=== PATIENT | male | born 1930 | race Caucasian/White ===

== ENCOUNTER 2017-05-24 10:08 | Inpatient (IN) | payer OTHER ==
[2017-05-24] VITALS (7 sets, daily range): BP systolic 156–164; BP diastolic 84–92; PULSE 56–65; TEMP 36.5; O2SAT 92–99; Ht 182.9 cm; Wt 126.6 kg
[~2017-05-24] VITALS: Ht 182.9 cm; Wt 126.6 kg
[~2017-05-24 10:08] MED LIST: ASPI81TA28 PO; CLOP1TAB15 PO; FINA5TAB4 PO; FLAX12003 PO; FLM4 PO; INSDGI SC; LICORICE PO; LNX125 PO; LSX40 PO; METO100T44 PO; NTRGSL/4 UT; OMEG10007 PO; OXGN; POTA1CAP2 PO; ZCR40 PO
[2017-05-24] MEDS ORDERED: ALBUT/IPRATROP 3MG/0.5MG NEB 3 ML VIAL INH STA (10:48)
--- NOTE | 2017-05-24 11:07 | DIAGNOSTIC IMAGING REPORT ---
CHEST ONE VIEW PORTABLE CLINICAL HISTORY: Sepsis COMPARISON STUDY: 12/20/2015 FINDINGS: The heart remains enlarged. There is diffuse elevation of the interstitium. This is slightly progressive when compared the prior study. This could reflect progressive interstitial lung disease or superimposed mild congestive failure. There is a subtle airspace opacity versus summation artifact in the right midlung zone laterally..[ IMPRESSION: 1. Progressive interstitial thickening, consistent with either progressive interstitial lung disease or superimposed mild congestive failure 2. Subtle airspace opacity within the right midlung zone laterally versus summation artifact. Radiographic follow-up is recommended. Electronically signed by: Roberto Yousif M.D. 05/24/2017 11:06 AM Dictated Date/Time: 05/24/2017 11:03 AM
[2017-05-24 11:28] LABS: BASO % 0.5 %; BASO ABS # 0.04 K/uL (0-0.2); COMPLETE YES; EOS % 2.5 %; HEMATOCRIT 33.4 % (42-52); IG% 0.5 %; LYMPH % 7.1 %; MEAN CELL VOLUME 95.4 fL (80-100); MEAN CORPUSCULAR HGB CONC 31.4 g/dl (32-36); MEAN PLATELET VOLUME 11.2 fL (7.4-10.4); MONO % 6.8 %; NEUT % 82.6 %; PLATELET COUNT 144 K/uL (130-400)
[2017-05-24 11:36] LABS: VEN BLD GAS O2 SATURATION < 60.0 %; VEN BLOOD GAS BASE EXCESS 3.8 mEq/L; VENOUS BLOOD GAS PCO2 68 mmHg (38.0-50.0); VENOUS BLOOD GAS PO2 36 mmHg
[2017-05-24 11:40] LABS: PARTIAL THROMBOPLASTIN RATIO 1.1; PROTHROMBIN TIME (PATIENT) 10.8 SECONDS (9.0-12.0)
[2017-05-24 11:46] LABS: BUN/CREATININE RATIO 13.4 (10-20); C-REACTIVE PROTEIN 0.8 mg/dl (0-0.29); CALCIUM 8.5 mg/dl (8.5-10.1); CREATININE 3.68 mg/dl (0.60-1.40); MAGNESIUM 2.2 mg/dl (1.8-2.4); POTASSIUM 4.1 mmol/L (3.5-5.1)
[2017-05-24 11:49] LABS: ALB/GLOB RATIO 0.8 (0.9-2); CKMB/CK RATIO 4.4 (0-3.0); PHOSPHORUS 4.3 mg/dl (2.5-4.9)
[2017-05-24 11:55] LABS: URINE APPEARANCE CLEAR (CLEAR); URINE BILIRUBIN NEG (NEG); URINE COLOR YELLOW; URINE EPITHELIAL CELL AUTO 0-5 /lpf (0-5); URINE NITRITE NEG (NEG); URINE PH 5.5 (4.5-7.5); URINE SPECIFIC GRAVITY 1.013 (1.000-1.030); UROBILINOGEN NEG (NEG)
[2017-05-24 12:10] LABS: MANUAL MICROSCOPIC REQUIRED? NO; REVIEW REQ? YES; ZZUR CULT IF INDIC CLEAN CATCH NO
[2017-05-24 12:11] LABS: URINE PATH CASTS 0-3 GRANULAR CASTS /lpf (0)
[2017-05-24] MEDS ORDERED: NITROGLYCERIN 0.4 MG SL PER TAB CHARGE SL PRN (13:15)
[2017-05-24] MEDS ORDERED: ONDANSETRON INJ 2 MG/ML 2 ML VIAL IV PRN (13:15)
[2017-05-24] MEDS ORDERED: FUROSEMIDE INJ 80 MG in SYRINGE 0 ML IV ONE (13:30)
[2017-05-24] MEDS ORDERED: ALBU18002 INH (14:15)
[2017-05-24] MEDS ORDERED: ADVIN25/60 INH (14:15)
[2017-05-24] MEDS ORDERED: NRN/300 PO (14:15)
[2017-05-24] MEDS ORDERED: GLUCAGON FOR INJ 1 MG VIAL SQ PRN (14:30)
[2017-05-24] MEDS ORDERED: GLUCOSE 10 TABS/TUBE PO PRN (14:30)
[2017-05-24] MEDS ORDERED: GLUCOSE 40% GEL 15 GM TUBE PO PRN (14:30)
[2017-05-24] MEDS ORDERED: DEXTROSE 50% 50 ML SYR IV PRN (14:30)
[2017-05-24 14:44] LABS: ALLEN TEST POS (POS); ARTERIAL BLOOD GAS BASE EXCESS 2.8 mEq/L (-9-1.8); ARTERIAL BLOOD GAS HCO3 30 mmol/L (19-24); ARTERIAL BLOOD GAS PO2 82 mm/Hg (80-95); ARTERIAL BLOOD GAS pH 7.31 (7.35-7.45); O2 ADMINISTRATION 4 L
[2017-05-24] MEDS ORDERED: FUROSEMIDE 40 MG/4 ML VIAL ONE (14:48)
--- NOTE | 2017-05-24 14:55 | EMERGENCY ROOM VISIT NOTE ---
History Report prepared by Jacquie: Annalise Arcos Under the Supervision of: Dr. Fredis Bo D.O. First contact with patient: 10:40 Chief Complaint: RESPIRATORY PROBLEMS Stated Complaint: CAN'T BREATHE, CAN'T WALK Nursing Triage Summary: patient c/o cough and SOB for past couple weeks. patient states PCP referred him to ER. patient sent in for SOB and creat level 3.5 pt wears 2LNC at home. History of Present Illness The patient is a 86 year old male who presents to the Emergency Room with complaints of worsening shortness of breath for the past couple of weeks. The patient has worsening symptoms with exertion. He is chronically on 2L of O2 and has not been increasing this. He reports a productive cough. The patient rates his overall pain as a 10/10 in severity. He denies any new or worsening swelling of his legs. He denies fevers, chills, chest pain, and hemoptysis. He does have a significant cardiac history. The patient was seen in his PCP's office today and was sent to the ED for further evaluation. Source of History: patient Onset: a couple of weeks ago Position: chest (respiratory) Symptom Intensity: 10/10 Quality: other (shortness of breath) Timing: worsening Modifying Factors (Worsening): exertion Associated Symptoms: + cough, No fevers, No chills, No chest pain Review of Systems See HPI for pertinent positives & negatives. A total of 10 systems reviewed and were otherwise negative. 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, chronic Surgical Problems: (1) H/O hernia repair (2) s/p laser vaporization of prostate 11/01/11 (3) Transurethral prostatectomy Family History Heart disease Social History Smoking Status: Former Smoker Drug Use: none Occupation Status: retired Current/Historical Medications Scheduled Aspirin (Aspirin Ec), 81 MG PO QAM Clopidogrel (Plavix), 75 MG PO QAM Digoxin (Digoxin), 0.125 MG PO 2XWK Finasteride (Proscar), 1 TAB PO HS Fish Oil ([place]-3), 1 CAP PO HS Fluticasone Prop/Salmeterol (Advair Diskus 250/50 60 Dose), 1 PUFF INH BID Furosemide (Furosemide), 80 MG PO BID Gabapentin (Neurontin), 1 CAP PO HS Home O2 Therapy (Oxygen), 2 LITERS NA CONTINOUS Insulin Glargine (Lantus), 50 UNITS SC BID Metoprolol Succ (Toprol Xl) (Toprol-Xl ), 100 MG PO BID Simvastatin (Simvastatin), 40 MG PO QPM Tamsulosin HCl (Tamsulosin HCl), 0.4 MG PO HS Scheduled PRN Albuterol Sulfate (Proair Respiclick), 2 PUFFS INH Q4H PRN for SOB/Wheezing Nitroglycerin (Nitrostat), 0.4 MG UT UD PRN for Chest Pain Allergies Coded Allergies: Iodine (Verified Allergy, Mild, HIVES, 05/24/17) Sulfa Antibiotics (Verified Allergy, Unknown, ENTERED SULFA- UNKNOWN, 05/24/17) Physical Exam Vital Signs Date Time Temp Pulse Resp B/P (MAP) Pulse Ox O2 Delivery O2 Flow Rate FiO2 05/24/17 13:08 59 22 96 05/24/17 13:01 174/92 05/24/17 12:38 63 25 93 05/24/17 12:31 169/92 05/24/17 12:26 67 24 181/80 93 Mask 4.0 05/24/17 12:25 181/80 05/24/17 12:08 63 22 91 05/24/17 12:01 178/104 05/24/17 11:38 64 24 93 05/24/17 11:32 180/94 05/24/17 11:31 93 Mask 4.0 05/24/17 11:08 60 30 94 05/24/17 11:01 143/92 05/24/17 10:49 58 05/24/17 10:47 135/89 05/24/17 10:37 83 Nasal Cannula 2.0 05/24/17 10:28 36.7 62 24 140/71 83 Nasal Cannula 2.0 Physical Exam GENERAL: Patient is awake, alert, somewhat anxious appearing but comfortable. EYES: The conjunctivae are clear. The pupils are round and reactive. EARS, NOSE, MOUTH AND THROAT: The nose is without any evidence of any deformity. Mucous membranes are moist tongue is midline NECK: The neck is nontender and supple. RESPIRATORY: Lung sounds diminished throughout, no definite wheezing, rhonchi, or rales. Significant conversational dyspnea was noted. CARDIOVASCULAR: Regular rate and rhythm noted there no murmurs rubs or gallops normal S1 normal S2 GASTROINTESTINAL: The abdomen is soft. Bowel sounds are present in all quadrants. Abdomen is nontender MUSCULOSKELETAL/EXTREMITIES: There is no evidence of gross deformity full range of motion is noted in the hips and shoulders SKIN: Pedal edema bilaterally. There is no obvious evidence of any rash. There are no petechiae, pallor or cyanosis noted. NEUROLOGIC: Patient is awake alert and oriented x3 Medical Decision & Procedures ER Provider Diagnostic Interpretation: Radiology results as stated below per my review and radiologist interpretation: CHEST ONE VIEW PORTABLE CLINICAL HISTORY: Sepsis COMPARISON STUDY: 12/20/2015 FINDINGS: The heart remains enlarged. There is diffuse elevation of the interstitium. This is slightly progressive when compared the prior study. This could reflect progressive interstitial lung disease or superimposed mild congestive failure. There is a subtle airspace opacity versus summation artifact in the right midlung zone laterally..[ IMPRESSION: 1. Progressive interstitial thickening, consistent with either progressive interstitial lung disease or superimposed mild congestive failure 2. Subtle airspace opacity within the right midlung zone laterally versus summation artifact. Radiographic follow-up is recommended. Electronically signed by: Roberto Yousif M.D. 05/24/2017 11:06 AM Dictated Date/Time: 05/24/2017 11:03 AM Laboratory Results 05/24/17 10:55 Red Blood Count 3.50, Mean Corpuscular Volume 95.4, Mean Corpuscular Hemoglobin 30.0, Mean Corpuscular Hemoglobin Concent 31.4, Mean Platelet Volume 11.2, Neutrophils (%) (Auto) 82.6, Lymphocytes (%) (Auto) 7.1, Monocytes (%) (Auto) 6.8, Eosinophils (%) (Auto) 2.5, Basophils (%) (Auto) 0.5, Neutrophils # (Auto) 6.94, Lymphocytes # (Auto) 0.60, Monocytes # (Auto) 0.57, Eosinophils # (Auto) 0.21, Basophils # (Auto) 0.04 05/24/17 10:55 Test 05/24/17 10:55 05/24/17 11:17 05/24/17 11:40 05/24/17 11:49 White Blood Count 8.40 K/uL (4.8-10.8) Red Blood Count 3.50 M/uL (4.7-6.1) Hemoglobin 10.5 g/dL (14.0-18.0) Hematocrit 33.4 % (42-52) Mean Corpuscular Volume 95.4 fL (80-100) Mean Corpuscular Hemoglobin 30.0 pg (25-34) Mean Corpuscular Hemoglobin Concent 31.4 g/dl (32-36) Platelet Count 144 K/uL (130-400) Mean Platelet Volume 11.2 fL (7.4-10.4) Neutrophils (%) (Auto) 82.6 % Lymphocytes (%) (Auto) 7.1 % Monocytes (%) (Auto) 6.8 % Eosinophils (%) (Auto) 2.5 % Basophils (%) (Auto) 0.5 % Neutrophils # (Auto) 6.94 K/uL (1.4-6.5) Lymphocytes # (Auto) 0.60 K/uL (1.2-3.4) Monocytes # (Auto) 0.57 K/uL (0.11-0.59) Eosinophils # (Auto) 0.21 K/uL (0-0.5) Basophils # (Auto) 0.04 K/uL (0-0.2) RDW Standard Deviation 50.1 fL (36.4-46.3) RDW Coefficient of Variation 14.6 % (11.5-14.5) Immature Granulocyte % (Auto) 0.5 % Immature Granulocyte # (Auto) 0.04 K/uL (0.00-0.02) Erythrocyte Sedimentation Rate 24 mm/hr (0-14) Prothrombin Time 10.8 SECONDS (9.0-12.0) Prothromb Time International Ratio 1.0 (0.9-1.1) Activated Partial Thromboplast Time 27.5 SECONDS (21.0-31.0) Partial Thromboplastin Ratio 1.1 Anion Gap 6.0 mmol/L (3-11) Est Creatinine Clear Calc Drug Dose 21.0 ml/min Estimated GFR () 16.5 Estimated GFR (Non- 14.2 BUN/Creatinine Ratio 13.4 (10-20) Calcium Level 8.5 mg/dl (8.5-10.1) Phosphorus Level 4.3 mg/dl (2.5-4.9) Magnesium Level 2.2 mg/dl (1.8-2.4) Total Bilirubin 0.5 mg/dl (0.2-1) Aspartate Amino Transf (AST/SGOT) 9 U/L (15-37) Alanine Aminotransferase (ALT/SGPT) 17 U/L (12-78) Alkaline Phosphatase 57 U/L (45-117) Total Creatine Kinase 34 U/L (39-308) C-Reactive Protein 0.80 mg/dl (0-0.29) Pro-B-Type Natriuretic Peptide 4121 pg/ml (0-1800) Total Protein 7.5 gm/dl (6.4-8.2) Albumin 3.3 gm/dl (3.4-5.0) Globulin 4.2 gm/dl (2.5-4.0) Albumin/Globulin Ratio 0.8 (0.9-2) Lipase 205 U/L (73-393) Digoxin Level 0.5 ng/ml (0.8-2.0) Venous Blood pH 7.28 (7.36-7.41) Venous Blood Partial Pressure CO2 68 mmHg (38.0-50.0) Venous Blood Partial Pressure O2 36 mmHg Venous Blood HCO3 32 mmol/L Venous Blood Oxygen Saturation < 60.0 % Venous Blood Base Excess 3.8 mEq/L Urine Color YELLOW Urine Appearance CLEAR (CLEAR) Urine pH 5.5 (4.5-7.5) Urine Specific [place] 1.013 (1.000-1.030) Urine Protein TRACE (NEG) Urine Glucose (UA) TRACE (NEG) Urine Ketones NEG (NEG) Urine Occult Blood 1+ (NEG) Urine Nitrite NEG (NEG) Urine Bilirubin NEG (NEG) Urine Urobilinogen NEG (NEG) Urine Leukocyte Esterase NEG (NEG) Urine WBC (Auto) 1-5 /hpf (0-5) Urine RBC (Auto) 10-30 /hpf (0-4) Urine Hyaline Casts (Auto) 5-10 /lpf (0-5) Urine Epithelial Cells (Auto) 0-5 /lpf (0-5) Urine Bacteria (Auto) NEG (NEG) Urine Pathogenic Casts 0-3 GRANULAR CASTS /lpf (0) Urine Yeast (Auto) (NONE PRSENT) Bedside Lactic Acid Venous 0.71 mmol/L (0.90-1.70) Laboratory results per my review. Medications Administered Medications (Trade) Dose Ordered Sig/Ronak Route Start Time Stop Time Status Last Admin Dose Admin Albuterol/ Ipratropium (Duoneb) 3 ml NOW STAT INH 05/24/17 10:48 05/24/17 10:49 DC 05/24/17 10:48 3 ML ECG Indication: SOB/dyspnea Rate (beats per minute): 59 Rhythm: normal sinus Findings: 1st degree AV block, PVC Comparison ECG Date: 12/18/2015 Change: no significant change ED Course 1040: The patient was evaluated in room B10. A complete history and physical examination were performed. 1048: DuoNeb 3 ml INH 1227: I spoke with Siobhan Cavazos PA-C. We discussed the patients case. [facility] 1236: I reassessed the patient at this time. He is resting more comfortably. I discussed the results and treatment plan with the patient. I answered all pertaining questions that he had. He expressed understanding and verbalized agreement. Medical Decision Differential diagnosis: Etiologies such as infections, reactive airway disease, pneumonia, pneumothorax , COPD, CHF, cardiac ischemia, pulmonary embolism, musculoskeletal, gastrointestinal, as well as others were entertained. The patient is an 86-year-old male who presented to the emergency department for an evaluation of shortness of breath. The patient complains of dyspnea on exertion. He was found have significant hypoxia in the emergency department. The patient does not appear to have pulmonary edema but does have an elevation in his creatinine which appears to be. The patient was treated with a DuoNeb at the emergency department which seems to have improved his symptoms. I discussed the patient's laboratory and radiographic studies with her. I discussed his case with the on-call [facility] hospitalist. I'm unsure of the definite cause of this patient's respiratory complaints at this time but I'm very concerned with his level of hypoxia. Medication Reconcilliation Current Medication List: was personally reviewed by me Blood Pressure Screening Patient's blood pressure: Elevated blood pressure Blood pressure disposition: Elevated BP felt to be situational Consults Time Called: 1224 Consulting Physician: Siobhan Cavazos PA-C Returned Call: 1227 I spoke with Siobhan Cavazos PA-C. We discussed the patients case. [facility]. Impression Primary Impression: Chronic hypoxemic respiratory failure Additional Impression: Renal failure Scribe Attestation The scribe's documentation has been prepared under my direction and personally reviewed by me in its entirety. I confirm that the note above accurately reflects all work, treatment, procedures, and medical decision making performed by me. Departure Information Dispostion Being Evaluated By Hospitalist Referrals Kam Dickey D.OPage (PCP) Patient Instructions My [facility] Problem Qualifiers Additional Impression: Renal failure Renal failure chronicity: acute Acute renal failure type: unspecified Qualified Codes: N17.9 - Acute kidney failure, unspecified
[2017-05-24] MEDS: INSULIN ASPART 100 UNITS/ML 3 ML PEN SC SCH ×2 (16:15→20:12)
--- NOTE | 2017-05-24 16:43 | History and Physical ---
History & Physical Date & Time of Service: May 24, 2017 ~ 12:45 Chief Complaint: Shortness of Breath Primary Care Physician: Kam Dickey D.O. History of Present Illness 86 year old male who presents to the ED with shortness of breath. Patient reports shortness of breath has been worsening over the past two weeks. He reports shortness of breath with minimal exertion. He chronically wears 2L of oxygen. He reports orthopnea and has been sleeping sitting up in the chair. He has chronic lower extremity edema which has been worsening. He also feels his abdomen has been getting larger which he attributes to "eating junk food." He denies chest pain and palpitations. He reports an occasional chronic dry cough which is unchanged. He denies lightheadedness, dizziness, diaphoresis, and syncopal events. No fevers or chills. He denies abdominal pain, nausea, vomiting , or diarrhea. No urinary symptoms. In the ED, patient was saturating in the 80s on his chronic 2L. Oxygen saturations improved with 4L oxygen via mask. CXR suggests CHF. Patient is afebrile, no leukocytosis. BPs are stable. He was given a neb. Past Medical/Surgical History Medical Problems: (1) Atrial fibrillation Status: Chronic (2) CAD (coronary artery disease) Permanent Comment: 1995 - inferior wall [place] 1999 - RCA intervention 2006 - left cx intervention 07/2010 - high grade mid and RCA stenosis inside prior stenting s/p intervention 2010 - stent occlusion due to ASA and Plavix being held for procedure; RCA was unable to be reopened, s/p stent to left cx Status: Chronic (3) Chronic hypoxemic respiratory failure Status: Chronic (4) CKD (chronic kidney disease), stage IV Status: Chronic (5) COPD (chronic obstructive pulmonary disease) Status: Chronic (6) DM2 (diabetes mellitus, type 2) Status: Chronic (7) HLD (hyperlipidemia) Status: Chronic (8) HTN (hypertension) Status: Chronic (9) Pulmonary nodules Permanent Comment: multiple calcified and noncalcified pulmonary nodules noted on CT chest 11/14/11 Status: Chronic (10) Systolic and diastolic CHF, chronic Permanent Comment: echo 2011 - EF 35-40%, grade II diastolic dysfunction Status: Chronic Surgical Problems: (1) H/O hernia repair Status: Chronic (2) s/p laser vaporization of prostate 11/01/11 Status: Chronic (3) Transurethral prostatectomy Status: Chronic Family History non contributory due to patient's advanced age Social History Smoking Status: Former Smoker Alcohol Use: none Housing status: lives alone Immunizations History of Influenza Vaccine: Yes Influenza Vaccine Date: Jun 06, 2016 History of Tetanus Vaccine?: Yes Tetanus Immunization Date: Sep 19, 2013 History of Pneumococcal: Yes Pneumococcal Date: Oct 20, 2014 History of Hepatitis B Vaccine: Unknown Multi-Drug Resistant Organisms History of MDRO: No Allergies Coded Allergies: Iodine (Verified Allergy, Mild, HIVES, 05/24/17) Sulfa Antibiotics (Verified Allergy, Unknown, ENTERED SULFA- UNKNOWN, 05/24/17) Home Medications Scheduled Aspirin (Aspirin Ec), 81 MG PO QAM Clopidogrel (Plavix), 75 MG PO QAM Digoxin (Digoxin), 0.125 MG PO 2XWK Finasteride (Proscar), 1 TAB PO HS Fish Oil ([place]-3), 1 CAP PO HS Fluticasone Prop/Salmeterol (Advair Diskus 250/50 60 Dose), 1 PUFF INH BID Furosemide (Furosemide), 80 MG PO BID Gabapentin (Neurontin), 1 CAP PO HS Home O2 Therapy (Oxygen), 2 LITERS NA CONTINOUS Insulin Glargine (Lantus), 50 UNITS SC BID Metoprolol Succ (Toprol Xl) (Toprol-Xl ), 100 MG PO BID Simvastatin (Simvastatin), 40 MG PO QPM Tamsulosin HCl (Tamsulosin HCl), 0.4 MG PO HS Scheduled PRN Albuterol Sulfate (Proair Respiclick), 2 PUFFS INH Q4H PRN for SOB/Wheezing Nitroglycerin (Nitrostat), 0.4 MG UT UD PRN for Chest Pain Review of Systems ROS per HPI, all other systems reviewed and negative Physical Exam Vital Signs Date Time Temp Pulse Resp B/P (MAP) Pulse Ox O2 Delivery O2 Flow Rate FiO2 05/24/17 14:57 61 25 165/90 97 05/24/17 14:20 36.7 60 21 135/81 95 05/24/17 14:08 60 21 95 05/24/17 14:02 135/81 05/24/17 13:38 61 25 96 05/24/17 13:31 156/74 05/24/17 13:29 64 05/24/17 13:16 140/73 05/24/17 13:08 59 22 96 05/24/17 13:01 174/92 05/24/17 12:38 63 25 93 05/24/17 12:31 169/92 05/24/17 12:26 67 24 181/80 93 Mask 4.0 05/24/17 12:25 181/80 05/24/17 12:08 63 22 91 05/24/17 12:01 178/104 05/24/17 11:38 64 24 93 05/24/17 11:32 180/94 05/24/17 11:31 93 Mask 4.0 05/24/17 11:08 60 30 94 05/24/17 11:01 143/92 05/24/17 10:49 58 05/24/17 10:47 135/89 05/24/17 10:37 83 Nasal Cannula 2.0 05/24/17 10:28 36.7 62 24 140/71 83 Nasal Cannula 2.0 General Appearance: WD/WN, no apparent distress, + obese Head: normocephalic, atraumatic Eyes: normal inspection, EOMI, sclerae normal ENT: hearing grossly normal, + pertinent finding (musous membranes moist) Neck: supple, no JVD, trachea midline Respiratory/Chest: no respiratory distress, + decreased breath sounds (BL bases ) Cardiovascular: regular rate, rhythm, normal peripheral pulses, + pertinent finding (+2 edema BLLE) Abdomen/GI: normal bowel sounds, non tender, soft, no organomegaly Extremities/Musculoskelatal: normal inspection, no calf tenderness, normal capillary refill Neurologic/Psych: no motor/sensory deficits, alert, normal mood/affect, oriented x 3 Skin: normal color, warm/dry Diagnostics Laboratory Results Results Past 24 Hours Test 05/24/17 10:55 05/24/17 11:17 05/24/17 11:40 05/24/17 11:49 Range/Units White Blood Count 8.40 4.8-10.8 K/uL Red Blood Count 3.50 4.7-6.1 M/uL Hemoglobin 10.5 14.0-18.0 g/dL Hematocrit 33.4 42-52 % Mean Corpuscular Volume 95.4 80-100 fL Mean Corpuscular Hemoglobin 30.0 25-34 pg Mean Corpuscular Hemoglobin Concent 31.4 32-36 g/dl Platelet Count 144 130-400 K/uL Mean Platelet Volume 11.2 7.4-10.4 fL Neutrophils (%) (Auto) 82.6 % Lymphocytes (%) (Auto) 7.1 % Monocytes (%) (Auto) 6.8 % Eosinophils (%) (Auto) 2.5 % Basophils (%) (Auto) 0.5 % Neutrophils # (Auto) 6.94 1.4-6.5 K/uL Lymphocytes # (Auto) 0.60 1.2-3.4 K/uL Monocytes # (Auto) 0.57 0.11-0.59 K/uL Eosinophils # (Auto) 0.21 0-0.5 K/uL Basophils # (Auto) 0.04 0-0.2 K/uL RDW Standard Deviation 50.1 36.4-46.3 fL RDW Coefficient of Variation 14.6 11.5-14.5 % Immature Granulocyte % (Auto) 0.5 % Immature Granulocyte # (Auto) 0.04 0.00-0.02 K/uL Erythrocyte Sedimentation Rate 24 0-14 mm/hr Prothrombin Time 10.8 9.0-12.0 SECONDS Prothromb Time International Ratio 1.0 0.9-1.1 Activated Partial Thromboplast Time 27.5 21.0-31.0 SECONDS Partial Thromboplastin Ratio 1.1 Sodium Level 140 136-145 mmol/L Potassium Level 4.1 3.5-5.1 mmol/L Chloride Level 105 98-107 mmol/L Carbon Dioxide Level 30 21-32 mmol/L Anion Gap 6.0 3-11 mmol/L Blood Urea Nitrogen 49 7-18 mg/dl Creatinine 3.68 0.60-1.40 mg/dl Est Creatinine Clear Calc Drug Dose 21.0 ml/min Estimated GFR () 16.5 Estimated GFR (Non- 14.2 BUN/Creatinine Ratio 13.4 10-20 Random Glucose 142 70-99 mg/dl Calcium Level 8.5 8.5-10.1 mg/dl Phosphorus Level 4.3 2.5-4.9 mg/dl Magnesium Level 2.2 1.8-2.4 mg/dl Total Bilirubin 0.5 0.2-1 mg/dl Aspartate Amino Transf (AST/SGOT) 9 15-37 U/L Alanine Aminotransferase (ALT/SGPT) 17 12-78 U/L Alkaline Phosphatase 57 45-117 U/L Total Creatine Kinase 34 39-308 U/L Creatine Kinase MB 1.5 0.5-3.6 ng/ml Creatine Kinase MB Ratio 4.4 0-3.0 Troponin I 0.031 0-0.045 ng/ml C-Reactive Protein 0.80 0-0.29 mg/dl Pro-B-Type Natriuretic Peptide 4121 0-1800 pg/ml Total Protein 7.5 6.4-8.2 gm/dl Albumin 3.3 3.4-5.0 gm/dl Globulin 4.2 2.5-4.0 gm/dl Albumin/Globulin Ratio 0.8 0.9-2 Lipase 205 73-393 U/L Digoxin Level 0.5 0.8-2.0 ng/ml Venous Blood pH 7.28 7.36-7.41 Venous Blood Partial Pressure CO2 68 38.0-50.0 mmHg Venous Blood Partial Pressure O2 36 mmHg Venous Blood HCO3 32 mmol/L Venous Blood Oxygen Saturation < 60.0 % Venous Blood Base Excess 3.8 mEq/L Urine Color YELLOW Urine Appearance CLEAR CLEAR Urine pH 5.5 4.5-7.5 Urine Specific [place] 1.013 1.000-1.030 Urine Protein TRACE NEG Urine Glucose (UA) TRACE NEG Urine Ketones NEG NEG Urine Occult Blood 1+ NEG Urine Nitrite NEG NEG Urine Bilirubin NEG NEG Urine Urobilinogen NEG NEG Urine Leukocyte Esterase NEG NEG Urine WBC (Auto) 1-5 0-5 /hpf Urine RBC (Auto) 10-30 0-4 /hpf Urine Hyaline Casts (Auto) 5-10 0-5 /lpf Urine Epithelial Cells (Auto) 0-5 0-5 /lpf Urine Bacteria (Auto) NEG NEG Urine Pathogenic Casts 0-3 GRANULAR CASTS 0 /lpf Urine Yeast (Auto) NONE PRSENT Bedside Lactic Acid Venous 0.71 0.90-1.70 mmol/L Test 05/24/17 14:22 Range/Units Arterial Blood pH 7.31 7.35-7.45 Arterial Blood Partial Pressure CO2 62 35-46 mmHg Arterial Blood Partial Pressure O2 82 80-95 mm/Hg Arterial Blood HCO3 30 19-24 mmol/L Arterial Blood Oxygen Saturation 94.0 90-95 % Arterial Blood Base Excess 2.8 -9-1.8 mEq/L Arterial Blood Gas Delivery 4 L Jay Test POS POS Microbiology Results 05/24/17 Blood Culture, Received Pending 05/24/17 Blood Culture, Received Pending Diagnostic Radiology CXR IMPRESSION: 1. Progressive interstitial thickening, consistent with either progressive interstitial lung disease or superimposed mild congestive failure 2. Subtle airspace opacity within the right midlung zone laterally versus summation artifact. Radiographic follow-up is recommended. Impression Assessment and Plan ACUTE ON CHRONIC HYPOXIC, HYPERCAPNIC RESPIRATORY FAILURE VOLUME OVERLOAD IN THE SETTING OF CKD STAGE IV, ACUTE ON CHRONIC SYSTOLIC AND DIASTOLIC CHF COPD - admit to tele - patient presenting with increasing shortness of breath, orthopnea, lower extremity edema, and abdominal distention x 2 weeks; in the ED, patient was hypoxic on his chronic 2L and CXR suggestive of CHF - oxygen saturations improved with 4L via mask - ABG obtained that showed a respiratory acidosis (pH 7.31, CO2 62, O2, 82, HCO3 30) - will place patient on BiPap, reassess and repeat ABG - case discussed with Dr. Henderson - will diuresis with Lasix 80mg TID; patient has declined dialysis in the past but is now considering - recent baseline creats running low 3's - 3.5; noted to be 3.68 today - chambers placed for strict I/Os, daily weights, low Na+ diet (NPO while on BiPap) - do not suspect COPD exacerbation or pneumonia - no worsening cough or sputum production, no wheezing on exam, afebrile, no leukocytosis - continue home inhalers; add on nebs - update echo (echo 2011 - EF - 35-40%, grade II diastolic dysfunction) - cycle cardiac enzymes - cardio consult, input appreciated CAD - no reports of chest pain, EKG without acute ST changes - continue ASA, Plavix, beta kelly, and statin PAROXYSMAL ATRIAL FIBRILLATION - rate controlled on Digoxin and metoprolol - not anticoagulated due to history of hematuria while on Coumadin DM - hgb a1c 7.2 03/2017 - glucose 147 on labs; holding Lantus while NPO - utilize SSI and add Lantus back once taking PO BPH - nursing unable to place chambers (chambers needed with aggressive diuresis) - urology consulted for chambers placement - case discussed with STAR Brasher - continue tamsulosin and finasteride DVT PROPHYLAXIS - SQ Heparin CODE STATUS - Patient is a full code as per my discussion with him. DISPO - In my clinical judgment this beneficiary meets acute admission criteria, established by [facility], that includes being hospitalized through two midnights. - PT/OT, case management; may need short term rehab stay post hospital ADDENDUM: I have seen and examined the patient and agree with the assessment above. Hypercapnia and hypoxia both present in setting of obesity and acute volume overload. Agree with BIPAP overnight to aid ventilation and improve hypercapnia. Simultaneous efforts with Lasix with 3L diuresis in just a few hours. 900 cc return when Chambers placed indicating some urinary retention. Nephro writing diuretic orders in setting of CKD Stage 4. Recent orthopnea, PND , LE swelling noted by patient with breathing worsening in the last two days. Admits to high salt intake as lives alone. Good air movement on exam and no distress or air hunger present on small amount of supplemental oxygen initially. 2+pitting edema in lower extremities and otherwise physical unremarkable aside from obesity. Cards also consulted as pt is known to them. BIPAP overnight with repeat ABG in am. DO Camilo Level of Care Telemetry Resuscitation Status FULL RESUSCITATION VTE Prophylaxis VTE Risk Assessment Done? Y/N: Yes Risk Level: Moderate Given or contraindicated: Unfractionated heparin SQ
--- NOTE | 2017-05-24 17:38 | Urology Consultation ---
Urology Consultation Date of Service May 24, 2017. Urology Consultation 22F coudae chambers inserted with return of 900 cc bloody urine. Chambers irrigated with NSS until light pink
[2017-05-24 18:27] LABS: ARTERIAL BLD GAS O2 SATURATION 93.6 % (90-95); ARTERIAL BLOOD GAS BASE EXCESS 3.4 mEq/L (-9-1.8); ARTERIAL BLOOD GAS HCO3 30 mmol/L (19-24); ARTERIAL BLOOD GAS PO2 80 mm/Hg (80-95); ARTERIAL BLOOD GAS pH 7.34 (7.35-7.45)
[2017-05-24 18:28] LABS: ALLEN TEST POS (POS); O2 ADMINISTRATION 40%
[2017-05-24] MEDS ORDERED: PNEUMOCOCCAL ADMINISTRATION CHARGE ONE (18:45)
[2017-05-24] MEDS ORDERED: PNEUMOCOCCAL POLYSACCHARIDES 25 MCG/0.5 ML VIAL/SYR IM. ONE (18:45)
[2017-05-24] MEDS: ALBUT/IPRATROP 3MG/0.5MG NEB 3 ML VIAL INH SCH (19:14)
[2017-05-24] MEDS: FUROSEMIDE INJ 80 MG in SYRINGE 0 ML IV SCH (19:31)
[2017-05-24] MEDS: FLUTICASONE/SALMETEROL 250/50 (ADVAIR) 14 PUFF/1 INHALER INH SCH (19:31)
[2017-05-24] MEDS: GABAPENTIN 300 MG CAP PO SCH (19:32)
[2017-05-24] MEDS: FINASTERIDE 5 MG TAB PO SCH (19:32)
[2017-05-24] MEDS: METOPROLOL SUCC 50MG EXT REL TAB PO SCH (19:32)
[2017-05-24] MEDS: SIMVASTATIN 40 MG TAB PO SCH (19:32)
[2017-05-24] MEDS: TAMSULOSIN HCL 0.4 MG CAP PO SCH (19:33)
[2017-05-24] MEDS: OMEGA-3 (PURIFIED FISH OIL) 1 GM CAP PO SCH (19:33)
[2017-05-24] MEDS ORDERED: INSULIN GLARGINE SOLOSTAR 100 UNITS/ML 3 ML PEN SC SCH (21:00)
[2017-05-24 21:53] LABS: BUN/CREATININE RATIO 13.5 (10-20); CALCIUM 8.8 mg/dl (8.5-10.1); CREATININE 3.68 mg/dl (0.60-1.40); MAGNESIUM 2.2 mg/dl (1.8-2.4); POTASSIUM 4.2 mmol/L (3.5-5.1)
[2017-05-24] MEDS: HEPARIN SOD 5000 UNIT/0.5 ML CARP SQ SCH (22:00)
[2017-05-24] MEDS ORDERED: FUROSEMIDE INJ 80 MG in SYRINGE 0 ML IV SCH (23:00)
[2017-05-25] VITALS (15 sets, daily range): BP systolic 107–151; BP diastolic 62–81; PULSE 60–91; TEMP 36.3–36.7; O2SAT 73–99
[2017-05-25] MEDS: FUROSEMIDE INJ 80 MG in SYRINGE 0 ML IV SCH (02:00)
[2017-05-25] MEDS: HEPARIN SOD 5000 UNIT/0.5 ML CARP SQ SCH ×3 (06:00→22:40)
[2017-05-25] MEDS ORDERED: MoRPHine SULFATE 2 MG/ML CARP IV STA (06:14)
[2017-05-25] MEDS ORDERED: MoRPHine SULFATE 2 MG/ML CARP ONE (06:16)
--- NOTE | 2017-05-25 06:45 | Progress Note ---
Progress Note Date of Service May 25, 2017. Progress Note chambers drained 3350cc overnight then clotted off chambers changer to [address] with CBI
[2017-05-25] MEDS: ALBUT/IPRATROP 3MG/0.5MG NEB 3 ML VIAL INH SCH ×4 (07:05→19:42)
[2017-05-25 08:35] LABS: HEMATOCRIT 32.2 % (42-52); MEAN CELL VOLUME 94.7 fL (80-100); MEAN CORPUSCULAR HEMOGLOBIN 29.7 pg (25-34); MEAN CORPUSCULAR HGB CONC 31.4 g/dl (32-36); MEAN PLATELET VOLUME 10.5 fL (7.4-10.4); PLATELET COUNT 134 K/uL (130-400); WHITE BLOOD COUNT 11.38 K/uL (4.8-10.8)
[2017-05-25 08:40] LABS: ARTERIAL BLD GAS O2 SATURATION 88.4 % (90-95); ARTERIAL BLOOD GAS BASE EXCESS 4.7 mEq/L (-9-1.8); ARTERIAL BLOOD GAS HCO3 31 mmol/L (19-24); ARTERIAL BLOOD GAS PO2 64 mm/Hg (80-95); ARTERIAL BLOOD GAS pH 7.36 (7.35-7.45)
[2017-05-25 08:41] LABS: ALLEN TEST POS (POS); O2 ADMINISTRATION 4L
[2017-05-25 08:56] LABS: CALCIUM 8.7 mg/dl (8.5-10.1); CREATININE 3.55 mg/dl (0.60-1.40); MAGNESIUM 2.1 mg/dl (1.8-2.4)
[2017-05-25] MEDS: CLOPIDOGREL BISULFATE 75 MG TAB PO SCH (09:37)
[2017-05-25] MEDS: ASPIRIN 81 MG ECTAB PO SCH (09:37)
[2017-05-25] MEDS: FLUTICASONE/SALMETEROL 250/50 (ADVAIR) 14 PUFF/1 INHALER INH SCH ×2 (09:37→20:43)
[2017-05-25] MEDS: METOPROLOL SUCC 50MG EXT REL TAB PO SCH ×2 (09:38→20:43)
[2017-05-25] MEDS: INSULIN ASPART 100 UNITS/ML 3 ML PEN SC SCH ×4 (09:43→20:42)
--- NOTE | 2017-05-25 10:09 | Nephrology Consultation ---
Nephrology Consultation Date of Consultation: May 25, 2017. Attending Physician: Dr Mendez Requesting Physician: Dr Mendez Reason for Consultation: CKD4 and volume overload History of Present Illness 86 year old male came to ER yesterday w/ a few weeks of worsening exertional dyspnea, edema, orthopnea whom I'm asked to evaluate for CKD and volume overload. He follows w/ Dr. Fraser in CKD clinic; his eGFR has been in mid/high teens since September of this year, w/ sCreatinine 3.5 since December 2016. He has historically declined dialysis, including at CKD clinic w/ Dr Fraser at 04/19/17 appt. Other PMH includes COPD on 2L 02NC chronically, poorly controlled DM, ASCVD s/p multiple coronary interventions most recently 2010 for acute stent occlusion w/ holding plavix/ASA for urologic procedure, EF 40% on 2011 TTE, paroxysmal afib w/ challenging rate control; HTN, HL. On arrival to ER yesterday he was hypoxic with 02 needs up to 4L. I reviewed his case w/ admitting team and recommended lasix 80 mg IV tid to start. His ABG showed respiratory acidosis and bipap was started; after a few hours he began to refuse this. Urology assistance w/ chambers placement was required last evening. This am his chambers clotted off and urology changed him to CBI. I reviewed his progress last evening and retimed his lasix dosing to ensure 3 doses 80 mg IV before shift change this am. He diuresed approximately 7L before urology changed to CBI. His blood pressure, heart rate and rhythm, 02 needs, creatinine have all so far been stable during this diuresis. He feels less dyspneic and edematous today. Endorses eating a lot of salty food even more than normal in past 2 mos b/c easier than cooking at home. States he cannot stand for long to cook or do dishes d/t chronic back pain >> states "I have to sit down after a few minutes or I will fall down." Past Medical/Surgical History Medical Problems: (1) ARF (acute renal failure) Status: Acute (2) Chronic hypoxemic respiratory failure Status: Chronic (3) Diverticulitis Status: Acute (4) Hyperglycemia Status: Acute (5) Lower GI bleed Status: Acute (6) Renal failure Status: Acute -as per HPI -reformed tobacco user, stopped 1990 30 pk yr hx -adenomatous polyps on colonoscopy 2016 x 2 -s/p 2011 bladder stone removal -chronic back pain and ambulatory dysfunction Family History Heart disease Social History Smoking Status: Former Smoker Drug Use: none Marital Status: Housing Status: lives alone Occupation Status: retired Allergies Coded Allergies: Iodine (Verified Allergy, Mild, HIVES, 05/24/17) Sulfa Antibiotics (Verified Allergy, Unknown, ENTERED SULFA- UNKNOWN, 05/24/17) Medications Current Inpatient Medications Medications (Trade) Dose Ordered Sig/Ronak Route Start Time Stop Time Status Last Admin Dose Admin Heparin Sodium (Porcine) (Heparin Sq 5000 Unit/0.5ml) 5,000 unit Q8 SQ 05/24/17 22:00 06/23/17 13:59 05/25/17 06:00 5,000 UNIT Acetaminophen (Tylenol Tab) 650 mg Q4H PRN PO 05/24/17 13:15 06/23/17 13:14 Ondansetron HCl (Zofran Inj) 4 mg Q6H PRN IV 05/24/17 13:15 06/23/17 13:14 Nitroglycerin (Nitrostat Tab) 0.4 mg UD PRN SL 05/24/17 13:15 06/23/17 13:14 Furosemide 80 mg/ Syringe 8 ml @ 4 mls/min TID IV 05/24/17 23:00 06/23/17 22:59 Future hold Insulin Aspart (novoLOG ASPART) SLIDING SCALE If C... ACHS SC 05/24/17 16:15 06/23/17 16:14 Glucose (Glucose 40% Gel) 15-30 GRAMS 15 GRAMS... UD PRN PO 05/24/17 14:30 06/23/17 14:29 Glucose (Glucose Chew Tab) 4-8 Tablets 4 Tabl... UD PRN PO 05/24/17 14:30 06/23/17 14:29 Dextrose (Dextrose 50% 50ML Syringe) 25-50ML OF 50% DW IV FOR... UD PRN IV 05/24/17 14:30 06/23/17 14:29 Glucagon (Glucagon Inj) 1 mg UD PRN SQ 05/24/17 14:30 06/23/17 14:29 Aspirin (Ecotrin Tab) 81 mg QAM PO 05/25/17 09:00 06/24/17 08:59 Clopidogrel Bisulfate (plAVix TAB) 75 mg QAM PO 05/25/17 09:00 06/24/17 08:59 Digoxin (Lanoxin Tab) 0.125 mg MoFr@1600 PO 05/26/17 16:00 06/25/17 15:59 Finasteride (Proscar Tab) 5 mg HS PO 05/24/17 21:00 06/23/17 20:59 05/24/17 19:32 5 MG Fish Oil (Holmes-3 (Purified Fish Oil) Cap) 1 gm HS PO 05/24/17 21:00 06/23/17 20:59 05/24/17 19:33 1 GM Salmeterol Xinafoate/ Fluticasone (Advair Diskus 250/50 Inh) 1 puff BID INH 05/24/17 21:00 06/23/17 20:59 05/24/17 19:31 1 PUFF Gabapentin (Neurontin Cap) 300 mg HS PO 05/24/17 21:00 06/23/17 20:59 05/24/17 19:32 300 MG Metoprolol Succinate (Toprol Xl Tab) 100 mg BID PO 05/24/17 21:00 06/23/17 20:59 05/24/17 19:32 100 MG Simvastatin (Zocor Tab) 40 mg QPM PO 05/24/17 21:00 06/23/17 20:59 05/24/17 19:32 40 MG Tamsulosin HCl (Flomax Cap) 0.4 mg HS PO 05/24/17 21:00 06/23/17 20:59 05/24/17 19:33 0.4 MG Albuterol/ Ipratropium (Duoneb) 3 ml QIDR INH 05/24/17 20:00 06/23/17 19:59 05/25/17 07:05 3 ML Home Meds and Scripts Medications Dose Route/Sig Max Daily Dose Days Date Category Dose Instructions Proair Respiclick (Albuterol Sulfate) 108 Mcg/Act Aer 2 Puffs INH Q4H PRN 05/24/17 Reported Neurontin (Gabapentin) 300 Mg Cap 1 Cap PO HS 30 05/24/17 Reported Advair Diskus 250/50 60 Dose (Fluticasone Prop/Salmeterol) 1 Ea Aerp 1 Puff INH BID 05/24/17 Reported Lantus (Insulin Glargine) 100 Unit/Ml Inj 50 Units SC BID 06/21/16 Reported Plavix (Clopidogrel Bisulfate) 75 Mg Tab 75 Mg PO QAM 06/21/16 Reported Oxygen Gas 2 Liters NA CONTINOUS 01/04/16 Reported Proscar (Finasteride) 5 Mg Tab 1 Tab PO HS 12/18/15 Reported Aspirin Ec (Aspirin) 81 Mg Tab 81 Mg PO QAM 07/24/14 Reported Tamsulosin HCl 0.4 Mg Cap 0.4 Mg PO HS 07/24/14 Reported Toprol-Xl (Metoprolol Succinate) 100 Mg Tabcr 100 Mg PO BID 07/24/14 Reported Digoxin 0.125 Mg Tab 0.125 Mg PO 2XWK 07/24/14 Reported Monday and Monday Simvastatin 40 Mg Tab 40 Mg PO QPM 07/24/14 Reported Furosemide 40 Mg Tab 80 Mg PO BID 07/24/14 Reported Holmes-3 (Fish Oil) 1 Ea Cap 1 Cap PO HS 11/11/11 Reported Nitrostat (Nitroglycerin) 0.4 Mg Tab 0.4 Mg UT UD PRN 08/16/10 Reported Review of Systems Constitutional: + weakness, + fatigue, No fever Eyes: No worsening of vision ENT: No hearing loss Respiratory: + shortness of breath, + dyspnea on exertion, + dyspnea at rest Cardiac: + edema, No chest pain, No palpitations Abdomen: No pain, No nausea, No vomiting, No diarrhea, No constipation Musculoskeletal: + swelling, No joint pain, No muscle pain Male : + see HPI, + incontinence, + problem reported (some retention prior to admission), No dysuria, No urinary frequency Neuro: + see HPI, + weakness, + balance problems, No memory loss Psych: No depression symptoms, No anxiety Heme: + see HPI, + clotting problems Endo: + fatigue Skin: No rash, No itch, No new/changing skin lesions Physical Exam Date Time Temp Pulse Resp B/P (MAP) Pulse Ox O2 Delivery O2 Flow Rate FiO2 05/25/17 07:05 64 18 92 Nasal Cannula 4.0 05/25/17 04:59 36.6 68 20 113/73 (86) 89 Nasal Cannula 4.0 05/25/17 04:00 Nasal Cannula 4.0 05/25/17 00:57 60 92 40 05/25/17 00:02 36.3 68 20 145/78 (100) 92 BiPAP 05/25/17 00:01 Nasal Cannula 4.0 05/24/17 20:00 Nasal Cannula 4.0 05/24/17 19:21 36.5 63 20 156/84 (108) 92 Nasal Cannula 4.0 05/24/17 19:17 63 16 92 Nasal Cannula 4.0 05/24/17 16:00 99 BiPAP 5.0 40 05/24/17 15:57 56 99 05/24/17 15:38 36.5 65 16 164/92 97 BiPAP 40 05/24/17 15:30 16 98 BiPAP 40 05/24/17 15:00 97 BiPAP 05/24/17 15:00 36.5 65 18 164/92 (116) 94 Oxymask 5.0 05/24/17 14:57 61 25 165/90 97 05/24/17 14:20 36.7 60 21 135/81 95 05/24/17 14:08 60 21 95 05/24/17 14:02 135/81 05/24/17 13:38 61 25 96 05/24/17 13:31 156/74 05/24/17 13:29 64 05/24/17 13:16 140/73 05/24/17 13:08 59 22 96 05/24/17 13:01 174/92 05/24/17 12:38 63 25 93 05/24/17 12:31 169/92 05/24/17 12:26 67 24 181/80 93 Mask 4.0 05/24/17 12:25 181/80 05/24/17 12:08 63 22 91 05/24/17 12:01 178/104 05/24/17 11:38 64 24 93 05/24/17 11:32 180/94 05/24/17 11:31 93 Mask 4.0 05/24/17 11:08 60 30 94 05/24/17 11:01 143/92 05/24/17 10:49 58 05/24/17 10:47 135/89 05/24/17 10:37 83 Nasal Cannula 2.0 05/24/17 10:28 36.7 62 24 140/71 83 Nasal Cannula 2.0 General Appearance: WD/WN, no apparent distress, + obese, + pertinent finding ( BL temporal wasting, on 4L 02) Eyes: EOMI ENT: hearing grossly normal, + muffled/hoarse voice Neck: supple Respiratory/Chest: + decreased breath sounds, + crackles (fine lacy and most prominent R base w/ tubular breath sounds superiorly/ R mid posterior), + rhonchi Cardiovascular: regular rate, rhythm, + pertinent finding (edema 1+ BL ) Abdomen: normal bowel sounds, non tender, soft, + pertinent finding (chambers w/ blood tinged urine no clots; CBI+) Extremities: non-tender, + pedal edema Neurologic/Psych: alert, normal mood/affect, oriented x 3 Skin: no jaundice, warm/dry, no rash Diagnostics Last 24 Hours Test 05/24/17 10:55 05/24/17 11:17 05/24/17 11:40 05/24/17 11:49 White Blood Count 8.40 K/uL Red Blood Count 3.50 M/uL Hemoglobin 10.5 g/dL Hematocrit 33.4 % Mean Corpuscular Volume 95.4 fL Mean Corpuscular Hemoglobin 30.0 pg Mean Corpuscular Hemoglobin Concent 31.4 g/dl Platelet Count 144 K/uL Mean Platelet Volume 11.2 fL Neutrophils (%) (Auto) 82.6 % Lymphocytes (%) (Auto) 7.1 % Monocytes (%) (Auto) 6.8 % Eosinophils (%) (Auto) 2.5 % Basophils (%) (Auto) 0.5 % Neutrophils # (Auto) 6.94 K/uL Lymphocytes # (Auto) 0.60 K/uL Monocytes # (Auto) 0.57 K/uL Eosinophils # (Auto) 0.21 K/uL Basophils # (Auto) 0.04 K/uL RDW Standard Deviation 50.1 fL RDW Coefficient of Variation 14.6 % Immature Granulocyte % (Auto) 0.5 % Immature Granulocyte # (Auto) 0.04 K/uL Erythrocyte Sedimentation Rate 24 mm/hr Prothrombin Time 10.8 SECONDS Prothromb Time International Ratio 1.0 Activated Partial Thromboplast Time 27.5 SECONDS Partial Thromboplastin Ratio 1.1 Sodium Level 140 mmol/L Potassium Level 4.1 mmol/L Chloride Level 105 mmol/L Carbon Dioxide Level 30 mmol/L Anion Gap 6.0 mmol/L Blood Urea Nitrogen 49 mg/dl Creatinine 3.68 mg/dl Est Creatinine Clear Calc Drug Dose 21.0 ml/min Estimated GFR () 16.5 Estimated GFR (Non- 14.2 BUN/Creatinine Ratio 13.4 Random Glucose 142 mg/dl Calcium Level 8.5 mg/dl Phosphorus Level 4.3 mg/dl Magnesium Level 2.2 mg/dl Total Bilirubin 0.5 mg/dl Aspartate Amino Transf (AST/SGOT) 9 U/L Alanine Aminotransferase (ALT/SGPT) 17 U/L Alkaline Phosphatase 57 U/L Total Creatine Kinase 34 U/L Creatine Kinase MB 1.5 ng/ml Creatine Kinase MB Ratio 4.4 Troponin I 0.031 ng/ml C-Reactive Protein 0.80 mg/dl Pro-B-Type Natriuretic Peptide 4121 pg/ml Total Protein 7.5 gm/dl Albumin 3.3 gm/dl Globulin 4.2 gm/dl Albumin/Globulin Ratio 0.8 Lipase 205 U/L Digoxin Level 0.5 ng/ml Venous Blood pH 7.28 Venous Blood Partial Pressure CO2 68 mmHg Venous Blood Partial Pressure O2 36 mmHg Venous Blood HCO3 32 mmol/L Venous Blood Oxygen Saturation < 60.0 % Venous Blood Base Excess 3.8 mEq/L Urine Color YELLOW Urine Appearance CLEAR Urine pH 5.5 Urine Specific [place] 1.013 Urine Protein TRACE Urine Glucose (UA) TRACE Urine Ketones NEG Urine Occult Blood 1+ Urine Nitrite NEG Urine Bilirubin NEG Urine Urobilinogen NEG Urine Leukocyte Esterase NEG Urine WBC (Auto) 1-5 /hpf Urine RBC (Auto) 10-30 /hpf Urine Hyaline Casts (Auto) 5-10 /lpf Urine Epithelial Cells (Auto) 0-5 /lpf Urine Bacteria (Auto) NEG Urine Pathogenic Casts 0-3 GRANULAR CASTS /lpf Urine Yeast (Auto) Bedside Lactic Acid Venous 0.71 mmol/L Test 05/24/17 14:22 05/24/17 16:22 05/24/17 17:00 05/24/17 18:14 Arterial Blood pH 7.31 7.34 Arterial Blood Partial Pressure CO2 62 mmHg 57 mmHg Arterial Blood Partial Pressure O2 82 mm/Hg 80 mm/Hg Arterial Blood HCO3 30 mmol/L 30 mmol/L Arterial Blood Oxygen Saturation 94.0 % 93.6 % Arterial Blood Base Excess 2.8 mEq/L 3.4 mEq/L Arterial Blood Gas Delivery 4 L 40% Jay Test POS POS Bedside Glucose 149 mg/dl Creatine Kinase MB Ratio Creatine Kinase MB 1.7 ng/ml Troponin I 0.031 ng/ml Test 05/24/17 19:58 05/24/17 20:00 05/24/17 20:02 05/24/17 20:59 Bedside Glucose 303 mg/dl 104 mg/dl 101 mg/dl Sodium Level 141 mmol/L Potassium Level 4.2 mmol/L Chloride Level 103 mmol/L Carbon Dioxide Level 33 mmol/L Anion Gap 5.0 mmol/L Blood Urea Nitrogen 50 mg/dl Creatinine 3.68 mg/dl Est Creatinine Clear Calc Drug Dose 21.4 ml/min Estimated GFR () 16.5 Estimated GFR (Non- 14.2 BUN/Creatinine Ratio 13.5 Random Glucose 143 mg/dl Calcium Level 8.8 mg/dl Magnesium Level 2.2 mg/dl Test 05/24/17 23:00 05/24/17 23:09 05/25/17 04:44 05/25/17 07:07 Creatine Kinase MB Ratio Creatine Kinase MB 1.3 ng/ml Troponin I 0.026 ng/ml Bedside Glucose 112 mg/dl Diagnostic Radiology: cxr > progressive interstitial thickening c/w either ISLD or mild congestive failure EKG: sinus segundo (59 bpm) w/ incomplete LBB Assessment & Plan 86 y/o M w/ COPD on 2LNC at baseline, 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 His baseline outpt creatinine has since december been 3.5. His creatinine on presentation was 3.7. exacerbation of chronic volume overload multifactorial from cardiorenal syndrome, dietary indiscretions; he had 7.3Ldiuresis since admission yesterday and feels improved; need to scale back aggressive diuresis -f/u pending TTE -repeat bmp, mag ordered for 1400 -hold lasix until TTE and repeat bmp post -recommend 1-2 doses lasix IV 60 mg (note lower mg) most likely in next 24 hrs but f/u above labs and volume status << orders in for nursing to reach out mid afternoon CKD4, historically not interested in dialysis urine sediment w/ some microhematuria, trace protein; no infection -am labs are w/ stable creatinine, stable/acceptable K, mag, bicarb -no acute indication for dialysis at this time; will cont to discuss pt wishes/ goals of care in this regard >> today he states he would consider a trial of dialysis should the need arise -recommend twice daily bmp for now -creatinine may rise tomorrow or day after w/ this aggressive diuresis clotted chambers now on cbi; gross hematuria -urology following; ? if this is all related to chambers procedures in pt plavix -?if recurrent bladder stone complex cardiovascular hx as above so far heart rates controlled; diuresing well -f/u cardiology recs -TTE pending acute on chronic respiratory failure -low threshold for CT chest; improving Appreciate consult; will follow with you. Care coordinated w/ DANNI Kincaid.
--- NOTE | 2017-05-25 10:31 | ECHOCARDIOGRAM REPORT ---
*NOTICE TO RECEIVING [employer] This information is strictly Confidential and protected under [place] law. [place] law prohibits you from making any further disclosure of this information unless further disclosure is expressly permitted by the written consent of the person to whom it pertains or is authorized by law. A general authorization for the release of medical or other information is not sufficient for this purpose. Hospital accepts no responsibility if the information is made available to any other person, INCLUDING THE PATIENT. Interpretation Summary * Name: HUNTER WILLAMS Study Date: 05/25/2017 07:24 AM BP: 113/73 mmHg * Patient Location: C.2T\S\E216\S\1 HR: 77 * : 1930 (M/d/yyyy) Gender: Male Height: 72 in * Age: 86 yrs Ethnicity: [place] Weight: 291 lb * Ordering Physician: Siobhan Cavazos * Referring Physician: Self, Referred * Performed By: Ana Laura Mondragon RCS * * Reason For Study: CHF * BSA: 2.5 m2 * -- Conclusions -- * There is mild concentric left ventricular hypertrophy. * The inferior and inferolateral carter are severely hypokinetic to akinetic at the basal, mid and apical levels. The inferoseptal wall is hypokinetic at the basal and mid levels. * Left ventricular systolic function is moderately reduced. * The LV Ejection Fraction = 35-40%. * There is mild tricuspid regurgitation. * Doppler findings do not suggest pulmonary hypertension. * Diastolic dysfunction, Grade II (pseudonormalization pattern). * Aortic valve sclerosis mild, without significant aortic valvular stenosis. * Compared to the prior study dated 11/13/16, there LVEF is unchanged. Procedure Details * A complete two-dimensional transthoracic echocardiogram was performed (2D, M-mode, Doppler and color flow Doppler). * There were technical limitations due to patient'spoor positioning Left Ventricle * The left ventricle is normal in size. * There is mild concentric left ventricular hypertrophy. * Left ventricular systolic function is moderately reduced. * Ejection Fraction = 35-40%. * The inferior and inferolateral carter are severely hypokinetic to akinetic at the basal, mid and apical levels. The inferoseptal wall is hypokinetic at the basal and mid levels. * The left ventricular wall motion is normal. Right Ventricle * The right ventricle is normal size. * The right ventricular systolic function is normal as assessed by tricuspid annular plane systolic excursion (TAPSE) (normal >1.5 cm). Atria * The left atrium is moderately dilated. * Right atrial size is normal. * There is no evidence of atrial septal defect, but resolution does not allow assessment for a patent foramen ovale. Mitral Valve * The mitral valve is normal. * There is no mitral valve stenosis. * Significant mitral regurgitation is absent. Tricuspid Valve * The tricuspid valve is normal. * There is no tricuspid stenosis. * There is mild tricuspid regurgitation. * Doppler findings do not suggest pulmonary hypertension. Aortic Valve * The aortic valve is trileaflet. * Aortic valve sclerosis mild, without significant aortic valvular stenosis. * Aortic stenosis is absent. * There is no significant aortic regurgitation. Pulmonic Valve * The pulmonary valve is not well seen, but the Doppler examination is normal without significant regurgitation or stenosis. Great Vessels * The aortic root and proximal ascending aorta are normal sized. Pericardium/Pleural * There is no pericardial effusion. Great Vessels * Normal inferior vena cava diameter and respiratory variation suggests normal central venous pressure. Left Ventricular Diastolic Function * Diastolic dysfunction, Grade II (pseudonormalization pattern). MMode 2D Measurements and Calculations IVSd 1.2 cm IVSs 1.5 cm LVIDd 5.4 cm LVIDs 4.4 cm LVPWd 1.3 cm LVPWs 1.6 cm IVS/LVPW 0.96 FS 17.5 % EDV(Teich) 140.4 ml ESV(Teich) 89.6 ml EF(Teich) 36.2 % EDV(cubed) 156.1 ml ESV(cubed) 87.5 ml EF(cubed) 43.9 % % IVS thick 24.9 % % LVPW thick 23.9 % LV mass(C)d 272.6 grams LV mass(C)dI 109.1 grams/m\S\2 LV mass(C)s 279.3 grams LV mass(C)sI 111.8 grams/m\S\2 SV(Teich) 50.8 ml SI(Teich) 20.3 ml/m\S\2 SV(cubed) 68.5 ml SI(cubed) 27.4 ml/m\S\2 Ao root diam 4.2 cm Ao root area 14.0 cm\S\2 ACS 2.1 cm LA dimension 5.2 cm asc Aorta Diam 4.2 cm LA/Ao 1.2 EDV(MOD-sp4) 86.0 ml ESV(MOD-sp4) 63.0 ml EF(MOD-sp4) 26.7 % EDV(MOD-sp2) 164.0 ml ESV(MOD-sp2) 89.0 ml EF(MOD-sp2) 45.7 % SV(MOD-sp4) 23.0 ml SI(MOD-sp4) 9.2 ml/m\S\2 SV(MOD-sp2) 75.0 ml SI(MOD-sp2) 30.0 ml/m\S\2 Doppler Measurements and Calculations MV E max steven 106.7 cm/sec MV A max steven 58.0 cm/sec MV E/A 1.8 MV P1/2t max steven 104.4 cm/sec MV P1/2t 121.7 msec MVA(P1/2t) 1.8 cm\S\2 MV dec slope 251.3 cm/sec\S\2 MV dec time 0.23 sec Ao V2 max 178.9 cm/sec Ao max PG 12.8 mmHg Ao max PG (full) 8.1 mmHg LV V1 max PG 4.8 mmHg LV V1 max 109.0 cm/sec PA V2 max 108.7 cm/sec PA max PG 4.7 mmHg PI max steven 285.9 cm/sec PI max PG 32.7 mmHg PI dec slope 226.0 cm/sec\S\2 PI P1/2t 370.6 msec TR max steven 257.0 cm/sec
--- NOTE | 2017-05-25 10:34 | Cardiology Consultation ---
Cardiology Consultation Date of Service May 25, 2017. (Gabi Dunn, VIOLET) Cardiology Consultation Attending Ethylene Plant Operator: Dr. Gilbert Requesting Physician: Dr. Page/STAR Howard HPI: Patient is an 86 year old male who is well known to [facility] Cardiology, following with Dr. Muñiz and the undersigned. He has a very complex past history which includes: 1. Atherosclerotic coronary disease s/p inferior myocardial infarction 1995, coronary intervention to the right coronary artery in 1999, left circumflex in 2006. Repeat coronary intervention July 2010 for high grade mid and right coronary stenosis inside of prior stenting, for anginal pectoris. 2. 2010 - Acute stent occlusion in the setting of Aspirin and Plavix withdrawal for lithotripsy and subsequent prostatectomy. Right coronary artery was unable to be opened. Left circumflex had a 60% narrowing and underwent direct stenting. 3. Reduced LVEF at 40-44% per last echo in 10/2011 4. Hypertension. 5. Hyperlipidemia. 6. Paroxysmal atrial fibrillation with difficult to control rates - had hematuria while on anticoagulation therapy, this was subsequently stopped. Rates controlled with beta kelly and digoxin. Currently in NSR. 7. Severe COPD, oxygen dependent. 8. history of medication and dietary non compliance. Patient came to [facility] ER yesterday with complaints of progressive weakness, inability to urinate, worsening SOB and LE edema x several weeks. He admits to significant dietary indiscretion. He states he was taking his medications, but has a long history of medication non compliance and/or adjusting his own medications. Upon arrival to ER, he was hypoxic on his chronic O2. Chest xray found to have CHF. Elevated BNP. Cardiac enzymes unremarkable. He was started on IV furosemide. Wallace was placed with obstruction noted and urology has been consulted. Renal function stable from outpatient testing with creatinine of 3.5. Nephrology consulted. Patient previously declining dialysis, but now open to the consideration. At time of consult, patient feeling ok. SOB improved from admission, as well as LE edema. Review of Systems: See HPI for pertinent positives. All other 10 point review of systems is negative. 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 DYSLIPIDEMIA, GOAL LDL BELOW 70 S/P angioplasty with stent Heart failure, systolic, due to CAD Lingular mass Calculus of gallbladder History of tobacco use COPD, severe (HCC) Oxygen dependent Type 2 diabetes, HbA1C goal < 8% History of atrial fibrillation Lung nodules Type 2 diabetes mellitus with diabetic neuropathy, unspecified CKD (chronic kidney disease) stage 4, GFR 15-29 ml/min Surgical history: Procedure Laterality Date Age Comment OR Chart REPAIR INITIAL INGUINAL HERNIA REDUCIBLE AGE 7 OR MORE 1991 61 - 62y Right REMOVAL OF BLADDER STONE 2010 80 - 81[address] Dr Ferris ENDOSCOPY, ERCP, STONE LITHOTRIPSY CORONARY ARTERY DILATION, BALLOON 1999 69 - 70y [facility] CORONARY ANGIOGRAPHY W/LEFT HEART CATH 08/20/2010 80y CORONARY ANGIOGRAPHY W/ LEFT HEART CATH performed by PIERRE MCQUEEN at [facility] COLORECTAL CANCER SCREEN;COLON 09/04/2003 73y [facility] Dr Ivory COLONOSCOPY, DIAGNOSTIC (RECTUM) 01/07/2016 85y adenomatous polyps, hyperplastic polyp and lipoma, diverticulosis, poor prep, repeat 6 mo/[facility] COLONOSCOPY, DIAGNOSTIC (RECTUM) 06/27/2016 86y adenomatous polyps, poor prep, diverticulosis/[facility] CARDIAC SURGERY PROCEDURE NEC 04/24/2007 76y Left circumflex artery with placement of a Cypher drug-eluting stent. CARDIAC SURGERY PROCEDURE NEC 08/20/2010 80y RCA baremetal stent, Dr Mcqueen , [facility] Family history: non contributory Social History: Former tobacco abuse, quitting in 1990, Rare alcohol use. Lives alone. 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 10/2011 Sulfa Antibiotics Rash Medications: Reported Home Medications Medications Dose Route/Sig Max Daily Dose Days Date Category Dose Instructions Proair Respiclick (Albuterol Sulfate) 108 Mcg/Act Aer 2 Puffs INH Q4H PRN 05/24/17 Reported Neurontin (Gabapentin) 300 Mg Cap 1 Cap PO HS 30 05/24/17 Reported Advair Diskus 250/50 60 Dose (Fluticasone Prop/Salmeterol) 1 Ea Aerp 1 Puff INH BID 05/24/17 Reported Lantus (Insulin Glargine) 100 Unit/Ml Inj 50 Units SC BID 06/21/16 Reported Plavix (Clopidogrel Bisulfate) 75 Mg Tab 75 Mg PO QAM 06/21/16 Reported Oxygen Gas 2 Liters NA CONTINOUS 01/04/16 Reported Proscar (Finasteride) 5 Mg Tab 1 Tab PO HS 12/18/15 Reported Aspirin Ec (Aspirin) 81 Mg Tab 81 Mg PO QAM 07/24/14 Reported Tamsulosin HCl 0.4 Mg Cap 0.4 Mg PO HS 07/24/14 Reported Toprol-Xl (Metoprolol Succinate) 100 Mg Tabcr 100 Mg PO BID 07/24/14 Reported Digoxin 0.125 Mg Tab 0.125 Mg PO 2XWK 07/24/14 Reported Monday and Monday Simvastatin 40 Mg Tab 40 Mg PO QPM 07/24/14 Reported Furosemide 40 Mg Tab 80 Mg PO BID 07/24/14 Reported Benson-3 (Fish Oil) 1 Ea Cap 1 Cap PO HS 11/11/11 Reported Nitrostat (Nitroglycerin) 0.4 Mg Tab 0.4 Mg UT UD PRN 08/16/10 Reported PHYSICAL EXAM: Last 8 Hrs Date Time Temp Pulse Resp B/P (MAP) Pulse Ox O2 Delivery O2 Flow Rate FiO2 05/25/17 07:05 64 18 92 Nasal Cannula 4.0 05/25/17 04:59 36.6 68 20 113/73 (86) 89 Nasal Cannula 4.0 05/25/17 04:00 Nasal Cannula 4.0 05/25/17 00:57 60 92 40 GEN: A+Ox3. NAD HEENT: Normocephalic and atraumatic. No jugular venous distention though neck is thick. Lungs: Diminished breath sounds otherwise CTA b/l. No w/r/r. Cardiovascular: Regular. Grade 1/6 systolic murmur. No diastolic murmur. Abdomen: Soft, moderately distended. Extremities: 1+ LE edema b/l, hard indurated Neurologic: Patient is answering questions appropriately. DATA: EKG on admission: NSR with incomplete LBBB and nonspecific ST/T wave abnormality. Compared with Prior EKG in [facility] in 2013, T wave inversions in inferior and lateral leads have improved Chest xray on admission: IMPRESSION: 1. Progressive interstitial thickening, consistent with either progressive interstitial lung disease or superimposed mild congestive failure 2. Subtle airspace opacity within the right midlung zone laterally versus summation artifact. Radiographic follow-up is recommended. Telemetry reviewed: NSR with [facility] PVC/PAC Labs since admission: Last 24 Hours Test 05/24/17 10:55 05/24/17 11:17 05/24/17 11:40 05/24/17 11:49 White Blood Count 8.40 K/uL Red Blood Count 3.50 M/uL Hemoglobin 10.5 g/dL Hematocrit 33.4 % Mean Corpuscular Volume 95.4 fL Mean Corpuscular Hemoglobin 30.0 pg Mean Corpuscular Hemoglobin Concent 31.4 g/dl Platelet Count 144 K/uL Mean Platelet Volume 11.2 fL Neutrophils (%) (Auto) 82.6 % Lymphocytes (%) (Auto) 7.1 % Monocytes (%) (Auto) 6.8 % Eosinophils (%) (Auto) 2.5 % Basophils (%) (Auto) 0.5 % Neutrophils # (Auto) 6.94 K/uL Lymphocytes # (Auto) 0.60 K/uL Monocytes # (Auto) 0.57 K/uL Eosinophils # (Auto) 0.21 K/uL Basophils # (Auto) 0.04 K/uL RDW Standard Deviation 50.1 fL RDW Coefficient of Variation 14.6 % Immature Granulocyte % (Auto) 0.5 % Immature Granulocyte # (Auto) 0.04 K/uL Erythrocyte Sedimentation Rate 24 mm/hr Prothrombin Time 10.8 SECONDS Prothromb Time International Ratio 1.0 Activated Partial Thromboplast Time 27.5 SECONDS Partial Thromboplastin Ratio 1.1 Sodium Level 140 mmol/L Potassium Level 4.1 mmol/L Chloride Level 105 mmol/L Carbon Dioxide Level 30 mmol/L Anion Gap 6.0 mmol/L Blood Urea Nitrogen 49 mg/dl Creatinine 3.68 mg/dl Est Creatinine Clear Calc Drug Dose 21.0 ml/min Estimated GFR () 16.5 Estimated GFR (Non- 14.2 BUN/Creatinine Ratio 13.4 Random Glucose 142 mg/dl Calcium Level 8.5 mg/dl Phosphorus Level 4.3 mg/dl Magnesium Level 2.2 mg/dl Total Bilirubin 0.5 mg/dl Aspartate Amino Transf (AST/SGOT) 9 U/L Alanine Aminotransferase (ALT/SGPT) 17 U/L Alkaline Phosphatase 57 U/L Total Creatine Kinase 34 U/L Creatine Kinase MB 1.5 ng/ml Creatine Kinase MB Ratio 4.4 Troponin I 0.031 ng/ml C-Reactive Protein 0.80 mg/dl Pro-B-Type Natriuretic Peptide 4121 pg/ml Total Protein 7.5 gm/dl Albumin 3.3 gm/dl Globulin 4.2 gm/dl Albumin/Globulin Ratio 0.8 Lipase 205 U/L Digoxin Level 0.5 ng/ml Venous Blood pH 7.28 Venous Blood Partial Pressure CO2 68 mmHg Venous Blood Partial Pressure O2 36 mmHg Venous Blood HCO3 32 mmol/L Venous Blood Oxygen Saturation < 60.0 % Venous Blood Base Excess 3.8 mEq/L Urine Color YELLOW Urine Appearance CLEAR Urine pH 5.5 Urine Specific Villanueva 1.013 Urine Protein TRACE Urine Glucose (UA) TRACE Urine Ketones NEG Urine Occult Blood 1+ Urine Nitrite NEG Urine Bilirubin NEG Urine Urobilinogen NEG Urine Leukocyte Esterase NEG Urine WBC (Auto) 1-5 /hpf Urine RBC (Auto) 10-30 /hpf Urine Hyaline Casts (Auto) 5-10 /lpf Urine Epithelial Cells (Auto) 0-5 /lpf Urine Bacteria (Auto) NEG Urine Pathogenic Casts 0-3 GRANULAR CASTS /lpf Urine Yeast (Auto) Bedside Lactic Acid Venous 0.71 mmol/L Test 05/24/17 14:22 05/24/17 16:22 05/24/17 17:00 05/24/17 18:14 Arterial Blood pH 7.31 7.34 Arterial Blood Partial Pressure CO2 62 mmHg 57 mmHg Arterial Blood Partial Pressure O2 82 mm/Hg 80 mm/Hg Arterial Blood HCO3 30 mmol/L 30 mmol/L Arterial Blood Oxygen Saturation 94.0 % 93.6 % Arterial Blood Base Excess 2.8 mEq/L 3.4 mEq/L Arterial Blood Gas Delivery 4 L 40% Jay Test POS POS Bedside Glucose 149 mg/dl Creatine Kinase MB Ratio Creatine Kinase MB 1.7 ng/ml Troponin I 0.031 ng/ml Test 05/24/17 19:58 05/24/17 20:00 05/24/17 20:02 05/24/17 20:59 Bedside Glucose 303 mg/dl 104 mg/dl 101 mg/dl Sodium Level 141 mmol/L Potassium Level 4.2 mmol/L Chloride Level 103 mmol/L Carbon Dioxide Level 33 mmol/L Anion Gap 5.0 mmol/L Blood Urea Nitrogen 50 mg/dl Creatinine 3.68 mg/dl Est Creatinine Clear Calc Drug Dose 21.4 ml/min Estimated GFR () 16.5 Estimated GFR (Non- 14.2 BUN/Creatinine Ratio 13.5 Random Glucose 143 mg/dl Calcium Level 8.8 mg/dl Magnesium Level 2.2 mg/dl Test 05/24/17 23:00 05/24/17 23:09 05/25/17 07:07 05/25/17 08:27 Creatine Kinase MB Ratio Creatine Kinase MB 1.3 ng/ml Troponin I 0.026 ng/ml Bedside Glucose 112 mg/dl Prior Data: Echocardiogram 10/2011: Compared to last available study changes are noted as follows: Systolic function is reduced. The qualitative LV ejection fraction is 40-44% (mildly reduced). The left ventricular cavity size is mildly enlarged. The LV wall thickness is moderately increased (concentric). Regional wall motion abnormalities suggesting prior inferior and posterior infarct. Mild mitral regurgitation is present. ASSESSMENT 86 year old male 1. Acute on chronic respiratory failure, multifactorial 2. Acute on chronic systolic, likely biventricular, HF exacerbation 3. Chronic kidney disease, stable, creatinine 3.6. Patient previously declining dialysis, but willing to consider . 4. History of Hyperkalemia with excessive potassium supplementation use. Improved. 5.Paroxysmal afib - Currently NSR. Continue ASA, Toprol and digoxin. 6.Coronary artery disease - continue home medications. No anginal symptoms. Continue meds. Negative cardiac enzymes. 7.COPD - severe oxygen dependent. 8.Dyslipidemia - controlled 9.Hypertension - controlled PLAN: Echocardiogram pending. Continue diuresis. Monitor I+O's. Fluid restriction of 1500 ml Creatinine stable this AM despite aggressive diuresis -7L since admission. Discussed with nephrology. May need to reduce diuretics today to prevent worsening renal dysfunction. Continue other home medications including ASA, Plavix, metoprolol, digoxin, simvastatin. Case discussed with Dr. Gilbert. Will follow. (Gabi Dunn PA-C) CARDIOLOGY ATTENDING ADDENDUM: The patient was seen and personally examined. Agree with Gabi Dunn PA-C's findings and plans as documented above with additions as noted below: Patient states he feels improved compared to presentation. Over 7 L of urine output had been recorded since presentation and he feels interval improvement Examination: Trace bilateral lower extremity edema Cardiac vascular regular rhythm line Impression: Multifactorial volume overload in the setting of ischemic heart myopathy, moderate LV systolic dysfunction, ejection fraction unchanged compared to 2012, and progressive renal dysfunction. Plan: Nephrology input noted and appreciated. Continue high-dose diuretic therapy and monitor clinical and laboratory response. (Pierre Gilbert,D.O.)
[2017-05-25 14:50] LABS: BUN/CREATININE RATIO 13.1 (10-20); CALCIUM 8.6 mg/dl (8.5-10.1); CREATININE 3.79 mg/dl (0.60-1.40); MAGNESIUM 2.2 mg/dl (1.8-2.4); POTASSIUM 4.6 mmol/L (3.5-5.1)
[2017-05-25] MEDS ORDERED: NURSING VERBAL MED ORDER ONE (16:15)
[2017-05-25] MEDS ORDERED: FUROSEMIDE INJ 40 MG in SYRINGE 0 ML IV SCH (16:30)
[2017-05-25] MEDS: FUROSEMIDE INJ 60 MG in SYRINGE 0 ML IV SCH ×2 (17:45→23:41)
[2017-05-25] MEDS: TAMSULOSIN HCL 0.4 MG CAP PO SCH (20:43)
[2017-05-25] MEDS: OMEGA-3 (PURIFIED FISH OIL) 1 GM CAP PO SCH (20:43)
[2017-05-25] MEDS: GABAPENTIN 300 MG CAP PO SCH (20:43)
[2017-05-25] MEDS: FINASTERIDE 5 MG TAB PO SCH (20:43)
[2017-05-25] MEDS: SIMVASTATIN 40 MG TAB PO SCH (20:43)
--- NOTE | 2017-05-25 22:01 | Progress Note ---
Medicine Progress Note Date & Time of Visit: May 25, 2017 at 18:30 . Subjective Admitted yesterday with respiratory failure. BiPAP ordered, but patient did not tolerated very well as night. Brisk diuresis during the night. Respiratory status improved this morning. More somnolent this evening, BiPAP reapplied. No fever. Denies chest pain, cough. No nausea, vomiting. No diarrhea. Wallace catheter inserted by Urology draining grossly bloody urine. . Objective Last 8 Hrs Date Time Temp Pulse Resp B/P (MAP) Pulse Ox O2 Delivery O2 Flow Rate FiO2 05/25/17 19:42 70 18 92 Mask 10.0 05/25/17 19:01 36.7 71 18 121/66 (84) 98 Nasal Cannula 4.0 05/25/17 18:00 64 91 50 05/25/17 17:52 92 Oxymask 10.0 05/25/17 17:52 73 Nasal Cannula 6.0 05/25/17 16:42 36.6 68 16 121/67 (85) 99 05/25/17 16:00 Nasal Cannula 6.0 05/25/17 15:32 Nasal Cannula 4.0 05/25/17 15:11 88 18 91 Nasal Cannula 6.0 Physical Exam: General- no acute distress Eyes- anicteric ENT- wearing BiPAP Lungs- bibasilar rales Heart- regular, no gallop appreciated, + JVD, 2+ pretibial edema Abdomen- obese, soft, nontender - Wallace catheter with grossly bloody urine Extremities- no calf tenderness Neuro- somnolent, but response to questions and follows commands . Laboratory Results: Last 24 Hours Test 05/24/17 23:00 05/24/17 23:09 05/25/17 07:07 05/25/17 08:27 Creatine Kinase MB Ratio Creatine Kinase MB 1.3 ng/ml Troponin I 0.026 ng/ml Bedside Glucose 112 mg/dl White Blood Count 11.38 K/uL Red Blood Count 3.40 M/uL Hemoglobin 10.1 g/dL Hematocrit 32.2 % Mean Corpuscular Volume 94.7 fL Mean Corpuscular Hemoglobin 29.7 pg Mean Corpuscular Hemoglobin Concent 31.4 g/dl RDW Standard Deviation 50.4 fL RDW Coefficient of Variation 14.8 % Platelet Count 134 K/uL Mean Platelet Volume 10.5 fL Arterial Blood pH 7.36 Arterial Blood Partial Pressure CO2 56 mmHg Arterial Blood Partial Pressure O2 64 mm/Hg Arterial Blood HCO3 31 mmol/L Arterial Blood Oxygen Saturation 88.4 % Arterial Blood Base Excess 4.7 mEq/L Arterial Blood Gas Delivery 4L Jay Test POS Sodium Level 139 mmol/L Potassium Level 4.0 mmol/L Chloride Level 103 mmol/L Carbon Dioxide Level 30 mmol/L Anion Gap 7.0 mmol/L Blood Urea Nitrogen 50 mg/dl Creatinine 3.55 mg/dl Est Creatinine Clear Calc Drug Dose 22.2 ml/min Estimated GFR () 17.2 Estimated GFR (Non- 14.9 BUN/Creatinine Ratio 14.0 Random Glucose 110 mg/dl Calcium Level 8.7 mg/dl Magnesium Level 2.1 mg/dl Test 05/25/17 11:11 05/25/17 14:10 05/25/17 16:23 05/25/17 20:14 Bedside Glucose 173 mg/dl 139 mg/dl 176 mg/dl Sodium Level 138 mmol/L Potassium Level 4.6 mmol/L Chloride Level 100 mmol/L Carbon Dioxide Level 32 mmol/L Anion Gap 6.0 mmol/L Blood Urea Nitrogen 50 mg/dl Creatinine 3.79 mg/dl Est Creatinine Clear Calc Drug Dose 20.4 ml/min Estimated GFR () 15.9 Estimated GFR (Non- 13.7 BUN/Creatinine Ratio 13.1 Random Glucose 175 mg/dl Calcium Level 8.6 mg/dl Magnesium Level 2.2 mg/dl Assessment & Plan ACUTE ON CHRONIC HYPOXIC, HYPERCAPNIC RESPIRATORY FAILURE Chronic hypoxic respiratory failure on home O2 due to COPD. Acute hypoxic/hypercapnic respiratory failure secondary to combination of CHF, COPD, possible underlying interstitial lung disease, sleep apnea, obesity hypoventilation syndrome. Titrate supplemental oxygen. BiPAP as necessary for ventilatory support. Management as severe problems as outlined below. CHF (acute on chronic) History of left ventricular systolic heart failure with EF of 35-40 percent, left ventricular diastolic heart failure, probable right-sided heart failure. Exam, chest x-ray, elevated BNP consistent with acute exacerbation. Echocardiogram demonstrates mild concentric LVH, inferior and inferolateral wall motion abnormalities, overall LVEF 35 -40%, mild tricuspid regurgitation, grade II diastolic dysfunction, mild aortic valve sclerosis without stenosis, no apparent pulmonary hypertension. Receiving IV furosemide with brisk diuresis. No NICO or ARB due to CKD. CORONARY ARTERY DISEASE No chest pain. Cardiac markers negative. Continue aspirin, clopidogrel, metoprolol, statin. PAROXYSMAL ATRIAL FIB Continue digoxin and metoprolol. No anticoagulation due to history of GI bleeding. COPD Continue O2, bronchodilators. PROBABLE SLEEP APNEA / HYPOVENTILATION SYNDROME Continue BiPAP. Review history re: sleep study. PULMONARY NODULES Noted on previous imaging. Check outpatient studies. DIABETES MELLITUS TYPE 2 Well-controlled. Fasting blood sugar 110. Hemoglobin A1c 7.2 in clinic last month. Lantus/NovoLog per protocol. CKD IV Baseline serum creatinine 3.5. Serum creatinine 3.68 upon admission. Serum creatinine today = 3.55. Avoid potential nephrotoxins when able. Follow. HYPERTENSION Continue metoprolol succinate Follow and titrate Rx. BPH Wallace inserted by Urology. Continue finasteride and tamsulosin. VTE PROPHYLAXIS SQ heparin. Ambulate as able. DISPOSITION -[id number]- Anticipated discharge to home. [corrected FERNANDO 05/26/17 22: 40] Family Medicine follow-up with and Dr. Kam Dickey. . Current Inpatient Medications: Current Inpatient Medications Medications (Trade) Dose Ordered Sig/Ronak Route Start Time Stop Time Status Last Admin Dose Admin Heparin Sodium (Porcine) (Heparin Sq 5000 Unit/0.5ml) 5,000 unit Q8 SQ 05/24/17 22:00 06/23/17 13:59 05/25/17 15:18 5,000 UNIT Acetaminophen (Tylenol Tab) 650 mg Q4H PRN PO 05/24/17 13:15 06/23/17 13:14 Ondansetron HCl (Zofran Inj) 4 mg Q6H PRN IV 05/24/17 13:15 06/23/17 13:14 Nitroglycerin (Nitrostat Tab) 0.4 mg UD PRN SL 05/24/17 13:15 06/23/17 13:14 Insulin Aspart (novoLOG ASPART) SLIDING SCALE If C... ACHS SC 05/24/17 16:15 06/23/17 16:14 05/25/17 17:43 2 UNITS Glucose (Glucose 40% Gel) 15-30 GRAMS 15 GRAMS... UD PRN PO 05/24/17 14:30 06/23/17 14:29 Glucose (Glucose Chew Tab) 4-8 Tablets 4 Tabl... UD PRN PO 05/24/17 14:30 06/23/17 14:29 Dextrose (Dextrose 50% 50ML Syringe) 25-50ML OF 50% DW IV FOR... UD PRN IV 05/24/17 14:30 06/23/17 14:29 Glucagon (Glucagon Inj) 1 mg UD PRN SQ 05/24/17 14:30 06/23/17 14:29 Aspirin (Ecotrin Tab) 81 mg QAM PO 05/25/17 09:00 06/24/17 08:59 05/25/17 09:37 81 MG Clopidogrel Bisulfate (plAVix TAB) 75 mg QAM PO 05/25/17 09:00 06/24/17 08:59 05/25/17 09:37 75 MG Digoxin (Lanoxin Tab) 0.125 mg MoFr@1600 PO 05/26/17 16:00 06/25/17 15:59 Finasteride (Proscar Tab) 5 mg HS PO 05/24/17 21:00 06/23/17 20:59 05/25/17 20:43 5 MG Fish Oil ([place]-3 (Purified Fish Oil) Cap) 1 gm HS PO 05/24/17 21:00 06/23/17 20:59 05/25/17 20:43 1 GM Salmeterol Xinafoate/ Fluticasone (Advair Diskus 250/50 Inh) 1 puff BID INH 05/24/17 21:00 06/23/17 20:59 05/25/17 20:43 1 PUFF Gabapentin (Neurontin Cap) 300 mg HS PO 05/24/17 21:00 06/23/17 20:59 05/25/17 20:43 300 MG Metoprolol Succinate (Toprol Xl Tab) 100 mg BID PO 05/24/17 21:00 06/23/17 20:59 05/25/17 20:43 100 MG Simvastatin (Zocor Tab) 40 mg QPM PO 05/24/17 21:00 06/23/17 20:59 05/25/17 20:43 40 MG Tamsulosin HCl (Flomax Cap) 0.4 mg HS PO 05/24/17 21:00 06/23/17 20:59 05/25/17 20:43 0.4 MG Albuterol/ Ipratropium (Duoneb) 3 ml QIDR INH 05/24/17 20:00 06/23/17 19:59 05/25/17 19:42 3 ML Furosemide 60 mg/ Syringe 6 ml @ 3 mls/min TODAY@0000,1630 IV 05/25/17 16:30 05/26/17 00:01 05/25/17 17:45 3 MLS/MIN
[2017-05-26] VITALS (13 sets, daily range): BP systolic 100–132; BP diastolic 57–75; PULSE 63–71; TEMP 36.5–37.1; O2SAT 87–98
[2017-05-26] MEDS: HEPARIN SOD 5000 UNIT/0.5 ML CARP SQ SCH ×3 (06:20→20:52)
[2017-05-26] MEDS: INSULIN ASPART 100 UNITS/ML 3 ML PEN SC SCH ×4 (07:00→20:49)
[2017-05-26] MEDS: ALBUT/IPRATROP 3MG/0.5MG NEB 3 ML VIAL INH SCH ×4 (07:18→19:39)
[2017-05-26 07:33] LABS: BUN/CREATININE RATIO 13.8 (10-20); CALCIUM 8.3 mg/dl (8.5-10.1); MAGNESIUM 2.3 mg/dl (1.8-2.4); POTASSIUM 4.4 mmol/L (3.5-5.1)
--- NOTE | 2017-05-26 09:30 | Clinical Documentation Query ---
CLINICAL DOCUMENTATION QUERY Dr. DINH, In your clinical opinion is this patient being managed for: ( x ) Acute kidney failure in the setting of necessary diuresis ( ) Not Agree ( ) Other explanation of clinical findings (Please Explain) ( ) Unable to determine (Please Define) ( ) Need to Discuss The medical record reflects the following clinical findings, treatment, and risk factors. Clinical Indicators: 86 yo male presenting with acute on chronic combined CHF, initially with Cr 3.68. Per Nephrology documentation, baseline around 3.5. Cr has trended up to 4.0 Treatment: nephrology care, monitor PRP's, renal diet, I/O, daily wts Risk Factors: IV lasix necessary to treat acute CHF, age, HTN, A fib, DM II, CKD stage IV, Please clarify and document your clinical opinion in the progress notes and discharge summary. Terms such as "probable", "suspected", "likely", "questionable", "possible", or "still to be ruled out" are acceptable. IF IN AGREEMENT, YOU MUST DOCUMENT ABOVE DIAGNOSTIC STATEMENT IN DAILY PROGRESS NOTES AND DISCHARGE SUMMARY. This document is not part of the patient's record. Thank You, Gabriella Castillo, RN [phone]
[2017-05-26 09:35] LABS: ARTERIAL BLD GAS O2 SATURATION 96.2 % (90-95); ARTERIAL BLOOD GAS BASE EXCESS 4.2 mEq/L (-9-1.8); ARTERIAL BLOOD GAS HCO3 33 mmol/L (19-24); ARTERIAL BLOOD GAS PO2 106 mm/Hg (80-95); ARTERIAL BLOOD GAS pH 7.25 (7.35-7.45)
[2017-05-26 09:36] LABS: ALLEN TEST POS (POS); O2 ADMINISTRATION 9 L
--- NOTE | 2017-05-26 09:49 | Progress Note ---
Subjective Date of Service: May 26, 2017. Subjective Pt evaluation today including: conversation w/ patient, physical exam, chart review, lab review Voiding: chambers catheter in place 86 year old male here for volume overload. Urology was consulted to insert chambers to monitor I & O as he was a difficult insertion. Chambers was inserted and a large amount of gross hematuria with clot return. CBI was started. Currently CBI is running wide open with light pink urine return. Pt is very poor historian and is currently lethargic- possible transfer to ICU pending lab studies. Hgb/Hct stable. Afebrile. VSS however lower than normal HR and BP. O2 via 9-10 L face mask. Creatinine is currently 4 It is unknown his baseline urinary symptoms. Unsure if blood in urine was occuring prior to chambers insertion. Pt was last seen in our office in 2015 with BPH w/ Luts Hx of GLTURP 11/01/2011- suffered VT immediately after surgery- thought to be due to being of anticoagulants. Problem List Medical Problems: (1) ARF (acute renal failure) Status: Acute (2) Chronic hypoxemic respiratory failure Status: Chronic (3) Diverticulitis Status: Acute (4) Hyperglycemia Status: Acute (5) Lower GI bleed Status: Acute (6) Renal failure Status: Acute Review of Systems Eyes: No worsening of vision ENT: No hearing loss Respiratory: + shortness of breath, + dyspnea on exertion Cardiac: + orthopnea, + edema Abdomen: No pain, No nausea Musculoskeletal: + swelling Male : + see HPI, + hematuria Neurologic: + memory loss Heme: + abnormal bleeding/bruising Endo: + fatigue Objective Vital Signs Date Time Temp Pulse Resp B/P (MAP) Pulse Ox O2 Delivery O2 Flow Rate FiO2 05/26/17 07:39 36.5 64 20 113/66 (82) 92 Mask 9.0 05/26/17 07:18 63 18 92 Mask 8.0 05/26/17 04:01 37.1 65 21 100/57 (71) 90 Oxymask 6.0 05/26/17 04:00 Oxymask 5.0 05/26/17 02:01 64 98 50 05/26/17 00:00 BiPAP 05/25/17 23:36 36.5 63 20 151/78 (102) 99 BiPAP 05/25/17 23:13 61 91 50 05/25/17 20:00 Oxymask 10.0 05/25/17 19:42 70 18 92 Mask 10.0 05/25/17 19:01 36.7 71 18 121/66 (84) 98 Nasal Cannula 4.0 05/25/17 18:00 64 91 50 05/25/17 17:52 92 Oxymask 10.0 05/25/17 17:52 73 Nasal Cannula 6.0 05/25/17 16:42 36.6 68 16 121/67 (85) 99 05/25/17 16:00 Nasal Cannula 6.0 05/25/17 15:32 Nasal Cannula 4.0 05/25/17 15:11 88 18 91 Nasal Cannula 6.0 05/25/17 12:00 Nasal Cannula 4.0 05/25/17 11:49 36.7 69 26 107/62 (77) 93 05/25/17 11:09 91 18 86 Nasal Cannula 4.0 Physical Exam General Appearance: WD/WN, + mild distress (mild to moderate distress- primary team aware) Eyes: normal inspection ENT: hearing grossly normal Neck: supple Respiratory/Chest: + respiratory distress, + decreased breath sounds Cardiovascular: regular rate, rhythm Extremities: no calf tenderness, + pedal edema Neurologic/Psychiatric: alert (lethargic) Skin: normal color Laboratory Results Last 24 Hours Test 05/25/17 11:11 05/25/17 14:10 05/25/17 16:23 05/25/17 20:14 Bedside Glucose 173 mg/dl 139 mg/dl 176 mg/dl Sodium Level 138 mmol/L Potassium Level 4.6 mmol/L Chloride Level 100 mmol/L Carbon Dioxide Level 32 mmol/L Anion Gap 6.0 mmol/L Blood Urea Nitrogen 50 mg/dl Creatinine 3.79 mg/dl Est Creatinine Clear Calc Drug Dose 20.4 ml/min Estimated GFR () 15.9 Estimated GFR (Non- 13.7 BUN/Creatinine Ratio 13.1 Random Glucose 175 mg/dl Calcium Level 8.6 mg/dl Magnesium Level 2.2 mg/dl Test 05/26/17 06:32 05/26/17 06:36 05/26/17 09:10 Bedside Glucose 147 mg/dl Sodium Level 138 mmol/L Potassium Level 4.4 mmol/L Chloride Level 100 mmol/L Carbon Dioxide Level 31 mmol/L Anion Gap 7.0 mmol/L Blood Urea Nitrogen 55 mg/dl Creatinine 4.00 mg/dl Est Creatinine Clear Calc Drug Dose 19.3 ml/min Estimated GFR () 14.9 Estimated GFR (Non- 12.9 BUN/Creatinine Ratio 13.8 Random Glucose 153 mg/dl Calcium Level 8.3 mg/dl Magnesium Level 2.3 mg/dl Assessment and Plan Gross hematuria Chambers inserted for I & Os Gross hematuria with clots- CBI running- pink with clots- will slow CBI down and monitor. If urine remains clear will stop CBI. Recommend avoiding surgical intervention given his poor status. Due to gross hematuria will get urine cytology and culture (preferably when CBI is not running). Will also get noncontrast CT abd/pelvis (avoid IV dye to ARF). Pt has hx of stones. Bilateral nephrolithiasis on CT from November 2015- will rule out obstructive uropathy as well. Pt will also need outpt cysto. Thanks for the consult will follow along with primary service.
--- NOTE | 2017-05-26 09:49 | Nephrology Progress Note ---
Nephrology Progress Note Date of Service: May 26, 2017. Subjective too weak to do standing scale today; 10.8L negative as of this am since admission. he has worsening hypoxia over past 12 hrs; improved somewhat w/ 5-6 hrs bipap last evening. now NPO; repeat ABG w/ higher 02, C02, acidemia Objective Date Time Temp Pulse Resp B/P (MAP) Pulse Ox O2 Delivery O2 Flow Rate FiO2 05/26/17 07:39 36.5 64 20 113/66 (82) 92 Mask 9.0 05/26/17 07:18 63 18 92 Mask 8.0 05/26/17 04:01 37.1 65 21 100/57 (71) 90 Oxymask 6.0 05/26/17 04:00 Oxymask 5.0 05/26/17 02:01 64 98 50 05/26/17 00:00 BiPAP 05/25/17 23:36 36.5 63 20 151/78 (102) 99 BiPAP 05/25/17 23:13 61 91 50 05/25/17 20:00 Oxymask 10.0 05/25/17 19:42 70 18 92 Mask 10.0 05/25/17 19:01 36.7 71 18 121/66 (84) 98 Nasal Cannula 4.0 05/25/17 18:00 64 91 50 05/25/17 17:52 92 Oxymask 10.0 05/25/17 17:52 73 Nasal Cannula 6.0 05/25/17 16:42 36.6 68 16 121/67 (85) 99 05/25/17 16:00 Nasal Cannula 6.0 05/25/17 15:32 Nasal Cannula 4.0 05/25/17 15:11 88 18 91 Nasal Cannula 6.0 05/25/17 12:00 Nasal Cannula 4.0 05/25/17 11:49 36.7 69 26 107/62 (77) 93 05/25/17 11:09 91 18 86 Nasal Cannula 4.0 Physical Exam: General Appearance: WD/WN, no apparent distress, + obese, + pertinent finding ( BL temporal wasting, on 10L mask), Eyes: EOMI ENT: hearing grossly normal, + muffled/hoarse voice Neck: supple Respiratory/Chest: + very decreased breath sounds, + crackles (fine lacy and most prominent R base) Cardiovascular: regular rate, rhythm, + pertinent finding (no edema) Abdomen: normal bowel sounds, non tender, soft, + pertinent finding (chambers w/ blood tinged urine no clots) Extremities: non-tender, + pedal edema Neurologic/Psych: some psychomotor slowing but articulate when breakfast taken away (did not get any), normal mood/affect, oriented x 3 Skin: no jaundice, warm/dry, no rash Current Inpatient Medications Medications (Trade) Dose Ordered Sig/Ronak Route Start Time Stop Time Status Last Admin Dose Admin Heparin Sodium (Porcine) (Heparin Sq 5000 Unit/0.5ml) 5,000 unit Q8 SQ 05/24/17 22:00 06/23/17 13:59 05/26/17 06:20 5,000 UNIT Acetaminophen (Tylenol Tab) 650 mg Q4H PRN PO 05/24/17 13:15 06/23/17 13:14 Ondansetron HCl (Zofran Inj) 4 mg Q6H PRN IV 05/24/17 13:15 06/23/17 13:14 Nitroglycerin (Nitrostat Tab) 0.4 mg UD PRN SL 05/24/17 13:15 06/23/17 13:14 Insulin Aspart (novoLOG ASPART) SLIDING SCALE If C... ACHS SC 05/24/17 16:15 06/23/17 16:14 05/25/17 17:43 2 UNITS Glucose (Glucose 40% Gel) 15-30 GRAMS 15 GRAMS... UD PRN PO 05/24/17 14:30 06/23/17 14:29 Glucose (Glucose Chew Tab) 4-8 Tablets 4 Tabl... UD PRN PO 05/24/17 14:30 06/23/17 14:29 Dextrose (Dextrose 50% 50ML Syringe) 25-50ML OF 50% DW IV FOR... UD PRN IV 05/24/17 14:30 06/23/17 14:29 Glucagon (Glucagon Inj) 1 mg UD PRN SQ 05/24/17 14:30 06/23/17 14:29 Aspirin (Ecotrin Tab) 81 mg QAM PO 05/25/17 09:00 06/24/17 08:59 05/25/17 09:37 81 MG Clopidogrel Bisulfate (plAVix TAB) 75 mg QAM PO 05/25/17 09:00 06/24/17 08:59 05/25/17 09:37 75 MG Digoxin (Lanoxin Tab) 0.125 mg MoFr@1600 PO 05/26/17 16:00 06/25/17 15:59 Finasteride (Proscar Tab) 5 mg HS PO 05/24/17 21:00 06/23/17 20:59 05/25/17 20:43 5 MG Fish Oil (Shock-3 (Purified Fish Oil) Cap) 1 gm HS PO 05/24/17 21:00 06/23/17 20:59 05/25/17 20:43 1 GM Salmeterol Xinafoate/ Fluticasone (Advair Diskus 250/50 Inh) 1 puff BID INH 05/24/17 21:00 06/23/17 20:59 05/25/17 20:43 1 PUFF Gabapentin (Neurontin Cap) 300 mg HS PO 05/24/17 21:00 06/23/17 20:59 05/25/17 20:43 300 MG Metoprolol Succinate (Toprol Xl Tab) 100 mg BID PO 05/24/17 21:00 06/23/17 20:59 05/25/17 20:43 100 MG Simvastatin (Zocor Tab) 40 mg QPM PO 05/24/17 21:00 06/23/17 20:59 05/25/17 20:43 40 MG Tamsulosin HCl (Flomax Cap) 0.4 mg HS PO 05/24/17 21:00 06/23/17 20:59 05/25/17 20:43 0.4 MG Albuterol/ Ipratropium (Duoneb) 3 ml QIDR INH 05/24/17 20:00 06/23/17 19:59 05/26/17 07:18 3 ML Last 24 Hours Test 05/25/17 11:11 05/25/17 14:10 05/25/17 16:23 05/25/17 20:14 Bedside Glucose 173 mg/dl 139 mg/dl 176 mg/dl Sodium Level 138 mmol/L Potassium Level 4.6 mmol/L Chloride Level 100 mmol/L Carbon Dioxide Level 32 mmol/L Anion Gap 6.0 mmol/L Blood Urea Nitrogen 50 mg/dl Creatinine 3.79 mg/dl Est Creatinine Clear Calc Drug Dose 20.4 ml/min Estimated GFR () 15.9 Estimated GFR (Non- 13.7 BUN/Creatinine Ratio 13.1 Random Glucose 175 mg/dl Calcium Level 8.6 mg/dl Magnesium Level 2.2 mg/dl Test 05/26/17 06:32 05/26/17 06:36 Bedside Glucose 147 mg/dl Sodium Level 138 mmol/L Potassium Level 4.4 mmol/L Chloride Level 100 mmol/L Carbon Dioxide Level 31 mmol/L Anion Gap 7.0 mmol/L Blood Urea Nitrogen 55 mg/dl Creatinine 4.00 mg/dl Est Creatinine Clear Calc Drug Dose 19.3 ml/min Estimated GFR () 14.9 Estimated GFR (Non- 12.9 BUN/Creatinine Ratio 13.8 Random Glucose 153 mg/dl Calcium Level 8.3 mg/dl Magnesium Level 2.3 mg/dl Assessment & Plan 86 y/o M w/ 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 His baseline outpt creatinine has since december been 3.5. His creatinine on presentation was 3.7. acute on chronic hypercarbic respiratory failure -bipap; NPO; pulmonary to see pt; lower 02 flow rate given abg this am all per dr rush -low threshold for CT chest pending above -agree w/ dopplers BLE exacerbation of chronic volume overload multifactorial from cardiorenal syndrome, dietary indiscretions; he had 10.8Ldiuresis since admission 05/24 and feels improved volume vital; need to scale back aggressive diuresis -diuretic prn only for now > would use lasix 60 mg IV if needed CKD4, historically not interested in dialysis urine sediment w/ some microhematuria, trace protein; no infection. creatinine worsening some now with diuresis and may rise further yet -recheck bmp this PM ordered -no acute indication for dialysis at this time; will cont to discuss pt wishes/ goals of care in this regard >> has this admission stated he would consider a trial of dialysis should the need arise; not discussed today clotted chambers now on cbi; gross hematuria -urology following; ? if this is all related to chambers procedures in pt plavix -?if recurrent bladder stone complex cardiovascular hx as above so far heart rates controlled; diuresing well -f/u cardiology recs Appreciate consult; will follow with you. Care coordinated w/ DANNI Kincaid.
--- NOTE | 2017-05-26 10:19 | Cardiology Follow-Up ---
Subjective General Date of Service: May 26, 2017. Chief Complaint: SOB Pt evaluation today including: conversation w/ patient, physical exam, chart review, lab review, review of studies, conversation w/ [employer] ax consultant, review of inpatient medication list History of Present Illness Patient more awake/alert at the time of my visit. Answering questions appropriately. Was lethargic earlier this AM. Tolerated BiPAP last night for 6- 8 hours per nursing staff. He reports improvement in his SOB since admission. Oxygen demands increasing. edema improved. He denies chest pain. Still having gross bloody urine. Urology consulted. Nephrology following. Allergies Coded Allergies: Iodine (Verified Allergy, Mild, HIVES, 05/24/17) Sulfa Antibiotics (Verified Allergy, Unknown, ENTERED SULFA- UNKNOWN, 05/24/17) Social History Smoking Status: Former Smoker Hx Tobacco Use In Past Year?: No Hx Alcohol Use - Type And Amou: No Hx Substance Use - Type And Am: No Problem List Medical Problems: (1) ARF (acute renal failure) Status: Acute (2) Chronic hypoxemic respiratory failure Status: Chronic (3) Diverticulitis Status: Acute (4) Hyperglycemia Status: Acute (5) Lower GI bleed Status: Acute (6) Renal failure Status: Acute Review of Systems Respiratory: + cough, + wheezing, + shortness of breath, + dyspnea on exertion , No hemoptysis Cardiac: + edema, No chest pain, No orthopnea, No PND, No palpitations Physical Exam Vital Signs Last Vital Signs Documentation Date Time Temp Pulse Resp B/P (MAP) Pulse Ox O2 Delivery O2 Flow Rate FiO2 05/26/17 07:39 36.5 64 20 113/66 (82) 92 Mask 9.0 05/26/17 02:01 50 Physical Exam Constitutional: General Apperance: obese Level of Distress: NAD, acutely ill, chronically ill Psychiatric: Mental Status: active & alert Orientation: to time, to place, to person Eyes: Pupils: PERRLA Neck: supple Lungs: Respiratory effort: no dyspnea Auscultation: deminished air movement, expiratory wheezing, wet rales/ crackles, rhonchi Cardiovascular: Heart Auscultation: RRR, normal S1, normal S2, no murmurs Abdomen: Bowel Sounds: normal Inspection & Palpation: soft, non-distended Extremities: edema (trace pretibial edema) Assessment and Plan Assessment and Plan 86 year old male 1. Acute on chronic respiratory failure, multifactorial 2. Acute on chronic systolic heart failure exacerbation, likely biventricular 3. Acute on Chronic kidney disease, stable, baseline creatinine 3.5. Now increased to 4.0 Nephrology following. 4. History of Hyperkalemia with excessive potassium supplementation use. Improved. 5.Paroxysmal afib - Currently NSR. Continue ASA, Toprol and digoxin. 6.Coronary artery disease - continue home medications. No anginal symptoms. Continue meds. Negative cardiac enzymes. 7.COPD - severe oxygen dependent. 8.Dyslipidemia - controlled 9.Hypertension - controlled PLAN: Despite aggressive diuresis over the last 24-48 hours, patient's oxygen status continues to decline, requiring higher flow rates. Consider pulmonary med evaluation? Echo with stable findings of ischemic cardiomyopathy LVEF 35-40% Creatinine higher this AM. Furosemide dose reduced. Monitor I+O's. Fluid restriction of 1500 ml Continue other home medications including ASA, Plavix, metoprolol, digoxin, simvastatin. Case discussed with Dr. Gilbert. Will follow. CARDIOLOGY ATTENDING ADDENDUM: The patient was seen and personally examined. Agree with Gabi Dunn PA-C's findings and plans as documented above with additions as noted below. Patient's more lethargic today, he is on oxygen , but not on positive pressure ventilation. Exam: lethargy noted, edema improve. Impression: lethargy, multifactorial respiratory insufficiency , with acute systolic heart failure, also CO2 retention noted on ABG. Had marked diuresis with high dose furosemide , however creatinine has trended up. Plan: Agree with pulm input to place patient on Bipap, I spoke to his nurse, apparently pt has only been on it intermittently due to intolerance. Agree with holding additional diuretic and updated chem panel in am. Miguel Gilbert, DO Laboratory Results Last 24 Hours Test 05/25/17 11:11 05/25/17 14:10 05/25/17 16:23 05/25/17 20:14 Bedside Glucose 173 mg/dl 139 mg/dl 176 mg/dl Sodium Level 138 mmol/L Potassium Level 4.6 mmol/L Chloride Level 100 mmol/L Carbon Dioxide Level 32 mmol/L Anion Gap 6.0 mmol/L Blood Urea Nitrogen 50 mg/dl Creatinine 3.79 mg/dl Est Creatinine Clear Calc Drug Dose 20.4 ml/min Estimated GFR () 15.9 Estimated GFR (Non- 13.7 BUN/Creatinine Ratio 13.1 Random Glucose 175 mg/dl Calcium Level 8.6 mg/dl Magnesium Level 2.2 mg/dl Test 05/26/17 06:32 05/26/17 06:36 05/26/17 09:18 Bedside Glucose 147 mg/dl Sodium Level 138 mmol/L Potassium Level 4.4 mmol/L Chloride Level 100 mmol/L Carbon Dioxide Level 31 mmol/L Anion Gap 7.0 mmol/L Blood Urea Nitrogen 55 mg/dl Creatinine 4.00 mg/dl Est Creatinine Clear Calc Drug Dose 19.3 ml/min Estimated GFR () 14.9 Estimated GFR (Non- 12.9 BUN/Creatinine Ratio 13.8 Random Glucose 153 mg/dl Calcium Level 8.3 mg/dl Magnesium Level 2.3 mg/dl Arterial Blood pH 7.25 Arterial Blood Partial Pressure CO2 78 mmHg Arterial Blood Partial Pressure O2 106 mm/Hg Arterial Blood HCO3 33 mmol/L Arterial Blood Oxygen Saturation 96.2 % Arterial Blood Base Excess 4.2 mEq/L Arterial Blood Gas Delivery 9 L Jay Test POS
[2017-05-26] MEDS: FLUTICASONE/SALMETEROL 250/50 (ADVAIR) 14 PUFF/1 INHALER INH SCH (10:38)
[2017-05-26] MEDS: METOPROLOL SUCC 50MG EXT REL TAB PO SCH ×2 (10:38→20:50)
[2017-05-26] MEDS: CLOPIDOGREL BISULFATE 75 MG TAB PO SCH (10:38)
[2017-05-26] MEDS: ASPIRIN 81 MG ECTAB PO SCH (10:38)
--- NOTE | 2017-05-26 14:07 | Pulmonary Consultation ---
History General Date of Service: May 26, 2017. Stated Complaint: Volume Overload HPI The patient is a 86 year old male who presents to [facility] with complaints of Volume Overload. The patient's primary care provider is Kam Dickey D.O.. Mr. Lopez is a 86-year-old male with extensive cardiac history, severe COPD with oxygen dependence by record (FEV1 not documented), atrial fibrillation, hyperlipidemia, who presented on 05/24/2017 to the ER with several week history of dyspnea at rest and on exertion accompanied by your extremity edema and swelling. He also complained of generalized malaise and fatigue with progressive weakness. Patient is followed up by [facility] cardiology and has history of noncompliance and adjusting his medications. He denies any fever, chills, chest pain, cough, sick contacts or recent travel. He does admit to increased weight gain, lower extremity swelling, orthopnea and paroxysmal dyspnea. Initial vital signs in the ER on 05/24/2017 showed a temperature 36.7, pulse 62 , respiratory rate of 24, blood pressure 140/71, saturating 83% on 2 L nasal cannula. He is Laboratory data on admission showed a white blood cell count 8, hemoglobin 10, hematocrit 33.4, platelet count 144. Today there is mild increase in white blood cell count to 11. His chemistry on admission showed sodium 140, potassium 4.1, chloride 105, carbon dioxide 30, BUN 49, creatinine 3.60, glucose 142. ProBNP 4021, troponin 0.031. Albumin 3.3. Chemistry today significant for an increase in BUN to 55 and creatinine to 4. VBG on admission was 7.21/68/36/32/<60%. He was placed on 4 L nasal cannula and repeat ABG was 7.31/62/82/30/94%. He was then placed on BiPAP 12/ 5 at 40% with repeat ABG 7.34/57/80/30/92%. On the morning of 1026 ABG showed 7.36/56/64 /31/88% on 4 L nasal cannula. Per nursing staff, the last 24 hours he has not been compliant with BiPAP. Repeat ABG this morning 05/26/2017 was 7.25/78/106/ 73/96.2% on 9 L oxygen mask. From a respiratory standpoint in he is on Advair diskus 250/50 1 puff BID, Duoneb 3 ml every 4-6 hr. He was on Lasix and diureses 11L since admission. Blood culture done on 05/24/2017 shows no growth to date. Urine culture on still pending. At the time of my evaluation patient was saturating in the 70s on a 6 L nasal cannula and refusing to wear BiPAP. States that he does not have any respiratory complaints and denied being short of breath. Historian: patient, other (EMR) Onset: last week Severity: moderate Complaint Status: persistent Review of Systems Constitutional: reports: as stated in HPI Eyes: reports: as stated in HPI ENT: reports: as stated in HPI Cardiovascular: reports: as stated in HPI Respiratory: reports: as stated in HPI Gastrointestinal: reports: as stated in HPI Genitourinary - Male: reports: as stated in HPI Musculoskeletal: reports: as stated in HPI Integumentary: reports: as stated in HPI Neurologic: reports: as stated in HPI Psychiatric: reports: as stated in HPI Hematologic / Lymphatic: as stated in HPI Allergic / Immunologic: as stated in HPI Past Medical History Past Medical History: Severe COPD, oxygen dependent Lung nodules History of tobacco use disorder CAD status post inferior [place] in 1995, PCI in 1999, left circumflex in 2006. Repeat PCI 2010 status post stent occlusion. Systolic heart failure Hypertension Hyperlipidemia Type 2 diabetes Paroxysmal atrial fibrillation Hematuria Nephrolithiasis CK D stage IV BPH Past Surgical History: Inguinal hernia repair Lithotripsy PCI 2 with drug-eluting stent and bare-metal stent Colonoscopy Family History Heart disease No significant pulmonary history due to patient's age. Social History History of tobacco use disorder, quit in 1990. Denies alcohol use or illicit drug use. Hx Tobacco Use In Past Year?: No Smoking Status: Former Smoker Alcohol: no current use Marital status: Housing status: lives alone Occupational Status: retired Immunizations History of Influenza Vaccine: Yes Influenza Vaccine Date: Jun 06, 2016 History of Tetanus Vaccine?: Yes Tetanus Immunization Date: Sep 19, 2013 History of Pneumococcal: Yes Pneumococcal Date: Oct 20, 2014 History of Hepatitis B Vaccine: Unknown History of MDRO History of MDRO: No Allergies Coded Allergies: Iodine (Verified Allergy, Mild, HIVES, 05/24/17) Sulfa Antibiotics (Verified Allergy, Unknown, ENTERED SULFA- UNKNOWN, 05/24/17) Current Medications Reported Home Medications Medications Dose Route/Sig Max Daily Dose Days Date Category Dose Instructions Proair Respiclick (Albuterol Sulfate) 108 Mcg/Act Aer 2 Puffs INH Q4H PRN 05/24/17 Reported Neurontin (Gabapentin) 300 Mg Cap 1 Cap PO HS 30 05/24/17 Reported Advair Diskus 250/50 60 Dose (Fluticasone Prop/Salmeterol) 1 Ea Aerp 1 Puff INH BID 05/24/17 Reported Lantus (Insulin Glargine) 100 Unit/Ml Inj 50 Units SC BID 06/21/16 Reported Plavix (Clopidogrel Bisulfate) 75 Mg Tab 75 Mg PO QAM 06/21/16 Reported Oxygen Gas 2 Liters NA CONTINOUS 01/04/16 Reported Proscar (Finasteride) 5 Mg Tab 1 Tab PO HS 12/18/15 Reported Aspirin Ec (Aspirin) 81 Mg Tab 81 Mg PO QAM 07/24/14 Reported Tamsulosin HCl 0.4 Mg Cap 0.4 Mg PO HS 07/24/14 Reported Toprol-Xl (Metoprolol Succinate) 100 Mg Tabcr 100 Mg PO BID 07/24/14 Reported Digoxin 0.125 Mg Tab 0.125 Mg PO 2XWK 07/24/14 Reported Monday and Monday Simvastatin 40 Mg Tab 40 Mg PO QPM 07/24/14 Reported Furosemide 40 Mg Tab 80 Mg PO BID 07/24/14 Reported [place]-3 (Fish Oil) 1 Ea Cap 1 Cap PO HS 11/11/11 Reported Nitrostat (Nitroglycerin) 0.4 Mg Tab 0.4 Mg UT UD PRN 08/16/10 Reported Physical Physical Exam Vital Signs: Date Time Temp Pulse Resp B/P (MAP) Pulse Ox O2 Delivery O2 Flow Rate FiO2 05/26/17 11:43 67 94 40 05/26/17 11:41 67 18 94 BiPAP/CPAP 05/26/17 11:08 36.5 69 20 132/75 (94) 93 Mask 10.0 05/26/17 08:00 Oxymask 9.0 05/26/17 07:39 36.5 64 20 113/66 (82) 92 Mask 9.0 05/26/17 07:18 63 18 92 Mask 8.0 05/26/17 04:01 37.1 65 21 100/57 (71) 90 Oxymask 6.0 05/26/17 04:00 Oxymask 5.0 05/26/17 02:01 64 98 50 05/26/17 00:00 BiPAP 05/25/17 23:36 36.5 63 20 151/78 (102) 99 BiPAP 05/25/17 23:13 61 91 50 05/25/17 20:00 Oxymask 10.0 05/25/17 19:42 70 18 92 Mask 10.0 05/25/17 19:01 36.7 71 18 121/66 (84) 98 Nasal Cannula 4.0 05/25/17 18:00 64 91 50 05/25/17 17:52 92 Oxymask 10.0 05/25/17 17:52 73 Nasal Cannula 6.0 05/25/17 16:42 36.6 68 16 121/67 (85) 99 05/25/17 16:00 Nasal Cannula 6.0 05/25/17 15:32 Nasal Cannula 4.0 05/25/17 15:11 88 18 91 Nasal Cannula 6.0 Head: NORMOCEPHALIC, ATRAUMATIC Eyes: PERRLA, NO DISCHARGE, EOMI, SCLERAE NORMAL ENT: NORMAL MOUTH EXAM, NORMAL THROAT EXAM Neck: NORMAL RANGE OF MOTION, NO TENDERNESS, TRACHEA MIDLINE, NO STRIDOR, SUPPLE Respiratory: NO RESPIRATORY DISTRESS (diminshed breaths sound bilaterally) Cardiovasular: NORMAL S1S2 Abdomen: NON TENDER, NORMAL BOWEL SOUNDS, NO REBOUND Genitourinary - Male: EXTERNAL GENITALIA NORMAL (Wallace catheter in place) Back: NORMAL INSPECTION, NO MIDLINE TENDERNESS Upper Extremities: NO DEFORMITY, NORMAL ROM Lower Extremities: NO DEFORMITY, NORMAL ROM (Chronic venous changes bilateral lower extremity) Pulses: dorsalis pedis (R) (1+), dorsalis pedis (L) (1+) Neuro: ALERT, ORIENTED x 3, NORMAL MOTOR EXAM, NORMAL SPEECH, NORMAL MEMORY Psychiatric: NORMAL AFFECT, NO SUICIDAL IDEATION, CONTRACTS FOR SAFETY Diagnostics Labs Results Past 24 Hours Test 05/25/17 14:10 05/25/17 16:23 05/25/17 20:14 05/26/17 06:32 Range/Units Sodium Level 138 136-145 mmol/L Potassium Level 4.6 3.5-5.1 mmol/L Chloride Level 100 98-107 mmol/L Carbon Dioxide Level 32 21-32 mmol/L Anion Gap 6.0 3-11 mmol/L Blood Urea Nitrogen 50 7-18 mg/dl Creatinine 3.79 0.60-1.40 mg/dl Est Creatinine Clear Calc Drug Dose 20.4 ml/min Estimated GFR () 15.9 Estimated GFR (Non- 13.7 BUN/Creatinine Ratio 13.1 10-20 Random Glucose 175 70-99 mg/dl Calcium Level 8.6 8.5-10.1 mg/dl Magnesium Level 2.2 1.8-2.4 mg/dl Bedside Glucose 139 176 147 70-99 mg/dl Test 05/26/17 06:36 05/26/17 09:18 05/26/17 10:58 Range/Units Sodium Level 138 136-145 mmol/L Potassium Level 4.4 3.5-5.1 mmol/L Chloride Level 100 98-107 mmol/L Carbon Dioxide Level 31 21-32 mmol/L Anion Gap 7.0 3-11 mmol/L Blood Urea Nitrogen 55 7-18 mg/dl Creatinine 4.00 0.60-1.40 mg/dl Est Creatinine Clear Calc Drug Dose 19.3 ml/min Estimated GFR () 14.9 Estimated GFR (Non- 12.9 BUN/Creatinine Ratio 13.8 10-20 Random Glucose 153 70-99 mg/dl Calcium Level 8.3 8.5-10.1 mg/dl Magnesium Level 2.3 1.8-2.4 mg/dl Arterial Blood pH 7.25 7.35-7.45 Arterial Blood Partial Pressure CO2 78 35-46 mmHg Arterial Blood Partial Pressure O2 106 80-95 mm/Hg Arterial Blood HCO3 33 19-24 mmol/L Arterial Blood Oxygen Saturation 96.2 90-95 % Arterial Blood Base Excess 4.2 -9-1.8 mEq/L Arterial Blood Gas Delivery 9 L Jay Test POS POS Bedside Glucose 166 70-99 mg/dl Microbiology Results 05/26/17 Urine Culture, Received Pending Diagnostic Radiology CHEST ONE VIEW PORTABLE 05/24/2017 CLINICAL HISTORY: Sepsis COMPARISON STUDY: 12/20/2015 FINDINGS: The heart remains enlarged. There is diffuse elevation of the interstitium. This is slightly progressive when compared the prior study. This could reflect progressive interstitial lung disease or superimposed mild congestive failure. There is a subtle airspace opacity versus summation artifact in the right midlung zone laterally.. IMPRESSION: 1. Progressive interstitial thickening, consistent with either progressive interstitial lung disease or superimposed mild congestive failure 2. Subtle airspace opacity within the right midlung zone laterally versus summation artifact. Radiographic follow-up is recommended. Transthoracic Echocardiogram 05/24/2017 * -- Conclusions -- * There is mild concentric left ventricular hypertrophy. * The inferior and inferolateral carter are severely hypokinetic to akinetic at the basal, mid and apical levels. The inferoseptal wall is hypokinetic at the basal and mid levels. * Left ventricular systolic function is moderately reduced. * The LV Ejection Fraction = 35-40%. * There is mild tricuspid regurgitation. * Doppler findings do not suggest pulmonary hypertension. * Diastolic dysfunction, Grade II (pseudonormalization pattern). * Aortic valve sclerosis mild, without significant aortic valvular stenosis. * Compared to the prior study dated 11/13/16, there LVEF is unchanged. Impression Assessment and Plan Acute on chronic hypoxic hypercapnic respiratory failure COPD Combined systolic and diastolic dysfunction. Obesity Acute on chronic kidney injury Patient has acute on chronic respiratory insufficiency which is multifactorial in nature. He is oxygen dependent and has significant desaturations when off oxygen. This is most likely secondary to a combination of COPD, obesity hypoventilation syndrome/JODY and systolic diastolic CHF. Patient has elevated BNP and increasing creatinine. Patient's mental status is waxing and waning I would continue to put him to BiPAP to decrease work of breathing and preload. I encouraged him to be compliant, but use as tolerated. Continue supplemental oxygenation to maintain SaO2 between 88-92%. I would like to obtain CT chest w/o contrast to evaluate lung parenchyma. Continue with DuoNeb inhaler every 4-6 hours flutter valve for aggressive pulmonary toilet. Continue with Advair diskus. I will increase it from 250 to 500/50 1 puff BID. He should also be on LAMA, so I will add Spiriva to his current regimen. I do not think that he is having a COPD exacerbation at this time and feel steroids are not indicated. He has undergone aggressive diuresis, which should assist with both systolic and diastolic CHF. Continue per nephrology recommendations. Continue to optimize rate control and BP, per cardiology recommendations. He should follow up with pulmonology as an outpatient for further management of COPD and to obtain full PFTs to evaluate severity of his obstruction. I also recommend that he have polysomnography done as an outpatient as well. I appreciate the consult. Please contact me if you have any questions or concerns.
--- NOTE | 2017-05-26 14:15 | DIAGNOSTIC IMAGING REPORT ---
CT SCAN OF THE ABDOMEN AND PELVIS WITHOUT CONTRAST CLINICAL HISTORY: Nephrolithiasis. Gross hematuria. COMPARISON STUDY: December 18, 2015 TECHNIQUE: CT scan of the abdomen and pelvis was performed from the lung bases to the proximal femurs. Images are reviewed in the axial, sagittal, and coronal planes. IV contrast was not administered for this examination. A dose lowering technique was utilized adhering to the principles of ALARA. CT DOSE: 1669.20 mGy.cm FINDINGS: Lower chest: The heart is enlarged. There is pulmonary emphysema. There are bibasal calcified granulomas. There is lower lobe bronchial wall thickening. There are right basilar airspace opacities. Liver: The unenhanced liver is normal in size, contour, and attenuation. There is no intrahepatic biliary ductal dilatation. Gallbladder: Cholelithiasis Spleen: Enlarged measuring 15.6 cm Pancreas: Unremarkable. Adrenal glands: Unremarkable. Kidneys: There is a 2 mm lower pole left renal calculus. There is a 7 mm mid to upper pole right renal calculus. There is mild bilateral hydronephrosis. No ureteral calculi are visualized. There are multiple bilateral renal masses which cannot be further characterized on this study but statistically represent cysts. Bowel: There is severe sigmoid diverticulosis. No peridiverticular inflammatory changes are visualized. The appendix appears normal. Peritoneum: There is no intraperitoneal free air or abdominal ascites. There is a fat-containing left inguinal hernia. Vasculature: The abdominal aorta is normal in course and caliber. Adenopathy: None. Pelvic viscera: There is an indwelling Wallace catheter. There is moderate bladder wall thickening. There is infiltration the perivesical fat. Clinical correlation regards to a cystitis is recommended. The prostate is enlarged. Skeletal structures: There is right SI joint fusion consistent with a sacroiliitis. IMPRESSION: 1. Cholelithiasis 2. Splenomegaly 3. Bilateral nephrolithiasis 4. Mild bilateral hydronephrosis 5. No ureteral or bladder calculi identified 6. Bilateral renal masses likely representing cysts 7. Severe colonic diverticulosis. No evidence of acute diverticulitis 8. SI joint fusion suggesting sacroiliitis 9. Bladder wall thickening and infiltration the perivesical fat. Clinical correlation regards to a cystitis is recommended 10. Emphysema, lower lobe bronchial wall thickening, right basal airspace opacities. Electronically signed by: Roberto Yousif M.D. 05/26/2017 2:14 PM Dictated Date/Time: 05/26/2017 2:04 PM
[2017-05-26 15:29] LABS: CALCIUM 8.2 mg/dl (8.5-10.1); POTASSIUM 4.7 mmol/L (3.5-5.1)
--- NOTE | 2017-05-26 15:35 | DIAGNOSTIC IMAGING REPORT ---
ULTRASOUND VENOUS DOPPLER LWR EXT BILA CLINICAL HISTORY: Bilateral edema. Hypoxia. COMPARISON STUDY: No previous studies for comparison. FINDINGS: Real-time and color flow Doppler imaging were performed. Flow was seen within the femoral, popliteal and calf veins with no intraluminal thrombus demonstrated. The saphenous vein is patent. IMPRESSION: No evidence of lower extremity DVT. Electronically signed by: Roberto Yousif M.D. 05/26/2017 3:34 PM Dictated Date/Time: 05/26/2017 3:34 PM
[2017-05-26] MEDS: DIGOXIN 0.125 MG TAB PO SCH (16:28)
[2017-05-26] MEDS: SIMVASTATIN 40 MG TAB PO SCH (20:49)
[2017-05-26] MEDS: GABAPENTIN 300 MG CAP PO SCH (20:50)
[2017-05-26] MEDS: TAMSULOSIN HCL 0.4 MG CAP PO SCH (20:50)
[2017-05-26] MEDS: OMEGA-3 (PURIFIED FISH OIL) 1 GM CAP PO SCH (20:50)
[2017-05-26] MEDS: FINASTERIDE 5 MG TAB PO SCH (20:50)
[2017-05-26] MEDS: FLUTICASONE/SALMETEROL (ADVAIR) 500/50 INH 14 PUFF INH SCH (20:51)
--- NOTE | 2017-05-26 22:39 | Progress Note ---
Medicine Progress Note Date & Time of Visit: May 26, 2017 at 09:20 . Subjective No fever. Wearing BiPAP intermittently. Occasional nonproductive cough. No chest pain. No nausea, vomiting, diarrhea. Still has Wallace cath with gross hematuria. . Objective Vital Signs Label Value Date Time Patient Temperature 36.5 C. 05/26/17738 Temperature Source Oral 05/26/17738 Pulse 64 05/26/17738 Location Radial Respiratory Rate 20 05/26/17738 Blood Pressure Assessment 113/66 (82) 05/26/17738 Location Left Arm Source NIBP Position Supine Bedside Pulse Oximetry 92 % 05/26/17738 Item Value Date Time Oxygen Delivery Method Mask 05/26/17738 Oxygen Flow Rate 9.0 L/min 05/26/17738 Physical Exam: General- no acute distress Eyes- anicteric Lungs- few bibasilar rales Heart- regular, no gallop appreciated, + JVD, 2+ pretibial edema Abdomen- obese, soft, nontender - Wallace catheter with grossly bloody urine Extremities- no calf tenderness Neuro- mild somnolence, but response to questions and follows commands . Laboratory Results: Last 24 Hours Test 05/26/17 06:32 05/26/17 06:36 05/26/17 09:18 05/26/17 10:58 Bedside Glucose 147 mg/dl 166 mg/dl Sodium Level 138 mmol/L Potassium Level 4.4 mmol/L Chloride Level 100 mmol/L Carbon Dioxide Level 31 mmol/L Anion Gap 7.0 mmol/L Blood Urea Nitrogen 55 mg/dl Creatinine 4.00 mg/dl Est Creatinine Clear Calc Drug Dose 19.3 ml/min Estimated GFR () 14.9 Estimated GFR (Non- 12.9 BUN/Creatinine Ratio 13.8 Random Glucose 153 mg/dl Calcium Level 8.3 mg/dl Magnesium Level 2.3 mg/dl Arterial Blood pH 7.25 Arterial Blood Partial Pressure CO2 78 mmHg Arterial Blood Partial Pressure O2 106 mm/Hg Arterial Blood HCO3 33 mmol/L Arterial Blood Oxygen Saturation 96.2 % Arterial Blood Base Excess 4.2 mEq/L Arterial Blood Gas Delivery 9 L Jay Test POS Test 05/26/17 14:55 05/26/17 16:26 05/26/17 20:11 Sodium Level 137 mmol/L Potassium Level 4.7 mmol/L Chloride Level 98 mmol/L Carbon Dioxide Level 34 mmol/L Anion Gap 5.0 mmol/L Blood Urea Nitrogen 60 mg/dl Creatinine 4.00 mg/dl Est Creatinine Clear Calc Drug Dose 19.3 ml/min Estimated GFR () 14.9 Estimated GFR (Non- 12.9 BUN/Creatinine Ratio 15.0 Random Glucose 203 mg/dl Calcium Level 8.2 mg/dl Bedside Glucose 178 mg/dl 163 mg/dl Date/Time Source Procedure Growth Status 05/26/17 10:05 Urine,Catheterized Urine Culture Pending Received Assessment & Plan ACUTE ON CHRONIC HYPOXIC, HYPERCAPNIC RESPIRATORY FAILURE Chronic hypoxic respiratory failure on home O2 due to COPD. Acute hypoxic/hypercapnic respiratory failure secondary to combination of CHF, COPD, possible underlying interstitial lung disease, sleep apnea, obesity hypoventilation syndrome. Titrate supplemental oxygen. BiPAP as necessary for ventilatory support. Persistent hypoxia despite aggressive diuresis. Consult Pulmonary Medicine. Management as severe problems as outlined below. COPD Continue O2, bronchodilators. PROBABLE SLEEP APNEA / HYPOVENTILATION SYNDROME Continue BiPAP. Review history re: sleep study. PULMONARY NODULES Noted on previous imaging. Check outpatient studies. CHF (acute on chronic) History of left ventricular systolic heart failure with EF of 35-40 percent, left ventricular diastolic heart failure, probable right-sided heart failure. Exam, chest x-ray, elevated BNP consistent with acute exacerbation. Echocardiogram demonstrates mild concentric LVH, inferior and inferolateral wall motion abnormalities, overall LVEF 35 -40%, mild tricuspid regurgitation, grade II diastolic dysfunction, mild aortic valve sclerosis without stenosis, no apparent pulmonary hypertension. Received IV furosemide with brisk diuresis. No NICO or ARB due to CKD. CORONARY ARTERY DISEASE No chest pain. Cardiac markers negative. Continue aspirin, clopidogrel, metoprolol, statin. PAROXYSMAL ATRIAL FIB Continue digoxin and metoprolol. No anticoagulation due to history of GI bleeding. DIABETES MELLITUS TYPE 2 Well-controlled. Hemoglobin A1c 7.2 in clinic last month. Fasting blood sugar = 147. Lantus/NovoLog per protocol. CKD IV Baseline serum creatinine 3.5. Serum creatinine 3.68 upon admission. Serum creatinine today = 4.0. Nephrology consulted. Titrate diuretics. Avoid potential nephrotoxins when able. Follow. HYPERTENSION Continue metoprolol succinate Follow and titrate Rx. BPH Wallace inserted by Urology. Continue finasteride and tamsulosin. VTE PROPHYLAXIS SQ heparin. Ambulate as able. DISPOSITION Discharge disposition to be determined. Family Medicine follow-up with and Dr. Kam Dickey. . Current Inpatient Medications: Current Inpatient Medications Medications (Trade) Dose Ordered Sig/Ronak Route Start Time Stop Time Status Last Admin Dose Admin Heparin Sodium (Porcine) (Heparin Sq 5000 Unit/0.5ml) 5,000 unit Q8 SQ 05/24/17 22:00 06/23/17 13:59 05/26/17 20:52 5,000 UNIT Acetaminophen (Tylenol Tab) 650 mg Q4H PRN PO 05/24/17 13:15 06/23/17 13:14 Ondansetron HCl (Zofran Inj) 4 mg Q6H PRN IV 05/24/17 13:15 06/23/17 13:14 Nitroglycerin (Nitrostat Tab) 0.4 mg UD PRN SL 05/24/17 13:15 06/23/17 13:14 Insulin Aspart (novoLOG ASPART) SLIDING SCALE If C... ACHS SC 05/24/17 16:15 06/23/17 16:14 05/26/17 12:48 4 UNITS Glucose (Glucose 40% Gel) 15-30 GRAMS 15 GRAMS... UD PRN PO 05/24/17 14:30 06/23/17 14:29 Glucose (Glucose Chew Tab) 4-8 Tablets 4 Tabl... UD PRN PO 05/24/17 14:30 06/23/17 14:29 Dextrose (Dextrose 50% 50ML Syringe) 25-50ML OF 50% DW IV FOR... UD PRN IV 05/24/17 14:30 06/23/17 14:29 Glucagon (Glucagon Inj) 1 mg UD PRN SQ 05/24/17 14:30 06/23/17 14:29 Aspirin (Ecotrin Tab) 81 mg QAM PO 05/25/17 09:00 06/24/17 08:59 05/26/17 10:38 81 MG Clopidogrel Bisulfate (plAVix TAB) 75 mg QAM PO 05/25/17 09:00 06/24/17 08:59 05/26/17 10:38 75 MG Digoxin (Lanoxin Tab) 0.125 mg MoFr@1600 PO 05/26/17 16:00 06/25/17 15:59 05/26/17 16:28 0.125 MG Finasteride (Proscar Tab) 5 mg HS PO 05/24/17 21:00 06/23/17 20:59 05/26/17 20:50 5 MG Fish Oil ([place]-3 (Purified Fish Oil) Cap) 1 gm HS PO 05/24/17 21:00 06/23/17 20:59 05/26/17 20:50 1 GM Gabapentin (Neurontin Cap) 300 mg HS PO 05/24/17 21:00 06/23/17 20:59 05/26/17 20:50 300 MG Metoprolol Succinate (Toprol Xl Tab) 100 mg BID PO 05/24/17 21:00 06/23/17 20:59 05/26/17 20:50 100 MG Simvastatin (Zocor Tab) 40 mg QPM PO 05/24/17 21:00 06/23/17 20:59 05/26/17 20:49 40 MG Tamsulosin HCl (Flomax Cap) 0.4 mg HS PO 05/24/17 21:00 06/23/17 20:59 05/26/17 20:50 0.4 MG Albuterol/ Ipratropium (Duoneb) 3 ml QIDR INH 05/24/17 20:00 06/23/17 19:59 05/26/17 19:39 3 ML Tiotropium [place] (Spiriva Handihaler Inhaler) 1 puff QAM INH 05/27/17 09:00 06/26/17 08:59 Salmeterol Xinafoate/ Fluticasone (Advair Diskus 500/50 Inh) 1 puff BID INH 05/26/17 21:00 06/25/17 20:59 05/26/17 20:51 1 PUFF
[2017-05-27] VITALS (11 sets, daily range): BP systolic 118–168; BP diastolic 63–91; PULSE 63–76; TEMP 36.4–37; O2SAT 73–100
[2017-05-27] MEDS: HEPARIN SOD 5000 UNIT/0.5 ML CARP SQ SCH ×3 (06:39→21:15)
[2017-05-27] MEDS: ALBUT/IPRATROP 3MG/0.5MG NEB 3 ML VIAL INH SCH ×4 (06:57→19:16)
[2017-05-27 07:07] LABS: BUN/CREATININE RATIO 17.3 (10-20); CALCIUM 8.3 mg/dl (8.5-10.1); CREATININE 3.99 mg/dl (0.60-1.40); POTASSIUM 4.6 mmol/L (3.5-5.1)
[2017-05-27] MEDS: ASPIRIN 81 MG ECTAB PO SCH (07:57)
[2017-05-27] MEDS: FLUTICASONE/SALMETEROL (ADVAIR) 500/50 INH 14 PUFF INH SCH ×2 (07:57→21:13)
[2017-05-27] MEDS: CLOPIDOGREL BISULFATE 75 MG TAB PO SCH (07:57)
[2017-05-27] MEDS: METOPROLOL SUCC 50MG EXT REL TAB PO SCH ×2 (07:57→21:14)
[2017-05-27] MEDS: TIOTROPIUM BROMIDE 5 PUFF/90 MCG INH INH SCH (07:57)
[2017-05-27] MEDS: INSULIN ASPART 100 UNITS/ML 3 ML PEN SC SCH ×4 (08:04→21:00)
--- NOTE | 2017-05-27 09:05 | DIAGNOSTIC IMAGING REPORT ---
(CHEST) THORAX WITHOUT CT DOSE: 936.88 mGy.cm HISTORY: Dyspnea evaluate lung parenchyma TECHNIQUE: Multiaxial CT images of the chest were performed without contrast. A dose lowering technique was utilized adhering to the principles of ALARA. COMPARISON: 11/14/2011 FINDINGS: Moderate chronic parenchymal fibrotic change. This is similar as compared to the prior study. Mild pleural thickening left base diminished in the prior exam. Multiple calcified as well as noncalcified parenchymal nodules similar to and are minimally progressive from the prior study. Background chronic interstitial lung disease unchanged the prior exam. Moderate cardiomegaly. IMPRESSION: 1. Findings of the chronic granulomatous as well as a chronic interstitial lung change bilaterally. 2. No major change compared to the prior study 2011. 3. Parenchymal nodularity generally stable from the prior exam. 4. No evidence for an acute or superimposed infiltrative process. The above report was generated using voice recognition software. It may contain grammatical, syntax or spelling errors. Electronically signed by: Braulio Molina M.D. 05/27/2017 9:04 AM Dictated Date/Time: 05/27/2017 9:03 AM
--- NOTE | 2017-05-27 10:57 | Progress Note ---
Subjective Date of Service: May 27, 2017. Subjective Pt evaluation today including: physical exam, chart review, lab review Pain: Comfortable Voiding: chambers catheter in place (urine clear, minimal CBI) 86 yo male with a history of BPH and hematuria, now improved. Chambers in place, draining clear urine, good UOP. Patient resting in bed. Problem List Medical Problems: (1) ARF (acute renal failure) Status: Acute (2) Chronic hypoxemic respiratory failure Status: Chronic (3) Diverticulitis Status: Acute (4) Hyperglycemia Status: Acute (5) Lower GI bleed Status: Acute (6) Renal failure Status: Acute Review of Systems Constitutional: No fever, No chills ENT: No hearing loss Cardiac: No chest pain Abdomen: No vomiting Male : No hematuria Objective Vital Signs Date Time Temp Pulse Resp B/P (MAP) Pulse Ox O2 Delivery O2 Flow Rate FiO2 05/27/17 08:04 36.7 67 24 168/91 (116) 100 Nasal Cannula 3.0 05/27/17 08:00 Nasal Cannula 4.0 05/27/17 06:57 66 16 98 Nasal Cannula 4.0 05/27/17 04:00 Nasal Cannula 4.0 05/27/17 03:25 37.0 76 20 159/72 (101) 91 Oxymask 7.0 05/27/17 00:00 Oxymask 8.0 05/26/17 23:00 36.9 67 18 108/62 (77) 96 BiPAP 05/26/17 22:22 70 96 40 05/26/17 20:00 BiPAP 40 05/26/17 19:39 68 18 87 Nasal Cannula 8.0 05/26/17 19:00 36.9 64 18 114/62 (79) 91 Nasal Cannula 9.0 05/26/17 16:28 65 05/26/17 16:00 BiPAP 40 05/26/17 15:36 67 18 96 Diffusion Mask 10.0 05/26/17 15:00 37.0 71 16 110/64 (79) 94 Oxymask 11.0 05/26/17 12:00 Oxymask 9.0 05/26/17 11:43 67 94 40 05/26/17 11:41 67 18 94 BiPAP/CPAP 05/26/17 11:08 36.5 69 20 132/75 (94) 93 Mask 10.0 Physical Exam General Appearance: WD/WN, no apparent distress Neck: no adenopathy Respiratory/Chest: no accessory muscle use Abdomen: non tender, soft Skin: normal color Laboratory Results Last 24 Hours Test 05/26/17 10:58 05/26/17 14:55 05/26/17 16:26 05/26/17 20:11 Bedside Glucose 166 mg/dl 178 mg/dl 163 mg/dl Sodium Level 137 mmol/L Potassium Level 4.7 mmol/L Chloride Level 98 mmol/L Carbon Dioxide Level 34 mmol/L Anion Gap 5.0 mmol/L Blood Urea Nitrogen 60 mg/dl Creatinine 4.00 mg/dl Est Creatinine Clear Calc Drug Dose 19.3 ml/min Estimated GFR () 14.9 Estimated GFR (Non- 12.9 BUN/Creatinine Ratio 15.0 Random Glucose 203 mg/dl Calcium Level 8.2 mg/dl Test 05/27/17 06:09 05/27/17 06:59 Sodium Level 137 mmol/L Potassium Level 4.6 mmol/L Chloride Level 98 mmol/L Carbon Dioxide Level 32 mmol/L Anion Gap 7.0 mmol/L Blood Urea Nitrogen 69 mg/dl Creatinine 3.99 mg/dl Est Creatinine Clear Calc Drug Dose 19.3 ml/min Estimated GFR () 15.0 Estimated GFR (Non- 12.9 BUN/Creatinine Ratio 17.3 Random Glucose 168 mg/dl Calcium Level 8.3 mg/dl Bedside Glucose 161 mg/dl Assessment and Plan A/P 86 yo male s/p chambers placement with resolved hematuria. Keep chambers as needed for I&Os, would remove prior to DC home. Outpatient follow-up with Dr. López is planned. Thank you for allowing us to participate in this patient's acute care, please recall our service PRN any questions or concerns.
--- NOTE | 2017-05-27 11:16 | Cardiology Follow-Up ---
Subjective General Date of Service: May 27, 2017. Chief Complaint: SOB Pt evaluation today including: conversation w/ patient, physical exam, chart review, lab review, review of studies, review of inpatient medication list History of Present Illness The patient is a 86 year old male seen in follow-up. Only able to wear BiPAP for approximately 15 minutes at a time. Patient denies chest pain or shortness of breath. Creatinine has not changed overnight. Patient requesting removal Wallace catheter if possible. Telemetry demonstrates sinus rhythm with occasional premature ventricular complexes. Allergies Coded Allergies: Iodine (Verified Allergy, Mild, HIVES, 05/24/17) Sulfa Antibiotics (Verified Allergy, Unknown, ENTERED SULFA- UNKNOWN, 05/24/17) Social History Smoking Status: Former Smoker Hx Tobacco Use In Past Year?: No Hx Alcohol Use - Type And Amou: No Hx Substance Use - Type And Am: No Problem List Medical Problems: (1) ARF (acute renal failure) Status: Acute (2) Chronic hypoxemic respiratory failure Status: Chronic (3) Diverticulitis Status: Acute (4) Hyperglycemia Status: Acute (5) Lower GI bleed Status: Acute (6) Renal failure Status: Acute Review of Systems Respiratory: + wheezing, + shortness of breath, + dyspnea on exertion, No cough , No hemoptysis Cardiac: + edema, No chest pain, No orthopnea, No PND, No palpitations Physical Exam Vital Signs Last Vital Signs Documentation Date Time Temp Pulse Resp B/P (MAP) Pulse Ox O2 Delivery O2 Flow Rate FiO2 05/27/17 08:04 36.7 67 24 168/91 (116) 100 Nasal Cannula 3.0 05/26/17 22:22 40 Physical Exam Constitutional: General Apperance: obese Level of Distress: NAD, acutely ill, chronically ill Psychiatric: Mental Status: active & alert Orientation: to time, to place, to person Eyes: Pupils: PERRLA Neck: supple Lungs: Respiratory effort: no dyspnea Auscultation: no wheezing, no rhonchi, deminished air movement, wet rales/ crackles, rhonchi Cardiovascular: Heart Auscultation: RRR, normal S1, normal S2, no murmurs Abdomen: Bowel Sounds: normal Inspection & Palpation: soft, non-distended Extremities: edema (trace pretibial edema) Assessment and Plan Assessment and Plan Impression: 1. Acute on chronic multifactorial respiratory failure with hypoxia and hypercapnia 2. Acute on chronic systolic heart failure exacerbation, likely biventricular with cardiorenal syndrome. 3. Acute on chronic renal insufficiency -creatinine unchanged today 4. Paroxysmal atrial fibrillation currently sinus rhythm on telemetry 5. Chronic coronary artery disease 6. Severe oxygen dependent COPD 7. History of hyperkalemia 8. Dyslipidemia - controlled 9. Hypertension - controlled PLAN: Diuretic therapy will remain on hold today. Other cardiovascular meds including Toprol-XL, simvastatin, aspirin, and digoxin will be continued at this time. Appreciate pulmonary input. Recommend use of BiPAP while in bed. Will continue to follow during hospitalization. Laboratory Results Last 24 Hours Test 05/26/17 14:55 05/26/17 16:26 05/26/17 20:11 05/27/17 06:09 Sodium Level 137 mmol/L 137 mmol/L Potassium Level 4.7 mmol/L 4.6 mmol/L Chloride Level 98 mmol/L 98 mmol/L Carbon Dioxide Level 34 mmol/L 32 mmol/L Anion Gap 5.0 mmol/L 7.0 mmol/L Blood Urea Nitrogen 60 mg/dl 69 mg/dl Creatinine 4.00 mg/dl 3.99 mg/dl Est Creatinine Clear Calc Drug Dose 19.3 ml/min 19.3 ml/min Estimated GFR () 14.9 15.0 Estimated GFR (Non- 12.9 12.9 BUN/Creatinine Ratio 15.0 17.3 Random Glucose 203 mg/dl 168 mg/dl Calcium Level 8.2 mg/dl 8.3 mg/dl Bedside Glucose 178 mg/dl 163 mg/dl Test 05/27/17 06:59 Bedside Glucose 161 mg/dl
--- NOTE | 2017-05-27 12:52 | Nephrology Progress Note ---
Nephrology Progress Note Date of Service: May 27, 2017. Subjective eating now. no n/v. tired. breathing a bit better; wonders if edema recurring ; eager for chambers removal Objective Date Time Temp Pulse Resp B/P (MAP) Pulse Ox O2 Delivery O2 Flow Rate FiO2 05/27/17 11:22 36.7 70 22 154/86 (108) 98 05/27/17 11:10 71 16 90 Nasal Cannula 3.0 05/27/17 08:04 36.7 67 24 168/91 (116) 100 Nasal Cannula 3.0 05/27/17 08:00 Nasal Cannula 4.0 05/27/17 06:57 66 16 98 Nasal Cannula 4.0 05/27/17 04:00 Nasal Cannula 4.0 05/27/17 03:25 37.0 76 20 159/72 (101) 91 Oxymask 7.0 05/27/17 00:00 Oxymask 8.0 05/26/17 23:00 36.9 67 18 108/62 (77) 96 BiPAP 05/26/17 22:22 70 96 40 05/26/17 20:00 BiPAP 40 05/26/17 19:39 68 18 87 Nasal Cannula 8.0 05/26/17 19:00 36.9 64 18 114/62 (79) 91 Nasal Cannula 9.0 05/26/17 16:28 65 05/26/17 16:00 BiPAP 40 05/26/17 15:36 67 18 96 Diffusion Mask 10.0 05/26/17 15:00 37.0 71 16 110/64 (79) 94 Oxymask 11.0 Physical Exam: General Appearance: WD/WN, no apparent distress, + obese, + pertinent finding ( BL temporal wasting, on 10L mask), Eyes: EOMI ENT: hearing grossly normal, + muffled/hoarse voice Neck: supple Respiratory/Chest: + very decreased breath sounds; today no crackles Cardiovascular: regular rate, rhythm, + pertinent finding (trace dependent bl edema) Abdomen: normal bowel sounds, non tender, soft, + pertinent finding (chambers w/ blood tinged urine no clots) Extremities: non-tender, + pedal edema Neurologic/Psych: some psychomotor slowing but articulate when breakfast taken away (did not get any), normal mood/affect, oriented x 3 Skin: no jaundice, warm/dry, no rash Current Inpatient Medications Medications (Trade) Dose Ordered Sig/Ronak Route Start Time Stop Time Status Last Admin Dose Admin Heparin Sodium (Porcine) (Heparin Sq 5000 Unit/0.5ml) 5,000 unit Q8 SQ 05/24/17 22:00 06/23/17 13:59 05/27/17 06:39 5,000 UNIT Acetaminophen (Tylenol Tab) 650 mg Q4H PRN PO 05/24/17 13:15 06/23/17 13:14 Ondansetron HCl (Zofran Inj) 4 mg Q6H PRN IV 05/24/17 13:15 06/23/17 13:14 Nitroglycerin (Nitrostat Tab) 0.4 mg UD PRN SL 05/24/17 13:15 06/23/17 13:14 Insulin Aspart (novoLOG ASPART) SLIDING SCALE If C... ACHS SC 05/24/17 16:15 06/23/17 16:14 05/27/17 08:04 3 UNITS Glucose (Glucose 40% Gel) 15-30 GRAMS 15 GRAMS... UD PRN PO 05/24/17 14:30 06/23/17 14:29 Glucose (Glucose Chew Tab) 4-8 Tablets 4 Tabl... UD PRN PO 05/24/17 14:30 06/23/17 14:29 Dextrose (Dextrose 50% 50ML Syringe) 25-50ML OF 50% DW IV FOR... UD PRN IV 05/24/17 14:30 06/23/17 14:29 Glucagon (Glucagon Inj) 1 mg UD PRN SQ 05/24/17 14:30 06/23/17 14:29 Aspirin (Ecotrin Tab) 81 mg QAM PO 05/25/17 09:00 06/24/17 08:59 05/27/17 07:57 81 MG Clopidogrel Bisulfate (plAVix TAB) 75 mg QAM PO 05/25/17 09:00 06/24/17 08:59 05/27/17 07:57 75 MG Digoxin (Lanoxin Tab) 0.125 mg MoFr@1600 PO 05/26/17 16:00 06/25/17 15:59 05/26/17 16:28 0.125 MG Finasteride (Proscar Tab) 5 mg HS PO 05/24/17 21:00 06/23/17 20:59 05/26/17 20:50 5 MG Fish Oil ([place]-3 (Purified Fish Oil) Cap) 1 gm HS PO 05/24/17 21:00 06/23/17 20:59 05/26/17 20:50 1 GM Gabapentin (Neurontin Cap) 300 mg HS PO 05/24/17 21:00 06/23/17 20:59 05/26/17 20:50 300 MG Metoprolol Succinate (Toprol Xl Tab) 100 mg BID PO 05/24/17 21:00 06/23/17 20:59 05/27/17 07:57 100 MG Simvastatin (Zocor Tab) 40 mg QPM PO 05/24/17 21:00 06/23/17 20:59 05/26/17 20:49 40 MG Tamsulosin HCl (Flomax Cap) 0.4 mg HS PO 05/24/17 21:00 06/23/17 20:59 05/26/17 20:50 0.4 MG Albuterol/ Ipratropium (Duoneb) 3 ml QIDR INH 05/24/17 20:00 06/23/17 19:59 05/27/17 11:10 3 ML Tiotropium [place] (Spiriva Handihaler Inhaler) 1 puff QAM INH 05/27/17 09:00 06/26/17 08:59 05/27/17 07:57 1 PUFF Salmeterol Xinafoate/ Fluticasone (Advair Diskus 500/50 Inh) 1 puff BID INH 05/26/17 21:00 06/25/17 20:59 05/27/17 07:57 1 PUFF Last 24 Hours Test 05/26/17 14:55 05/26/17 16:26 05/26/17 20:11 05/27/17 06:09 Sodium Level 137 mmol/L 137 mmol/L Potassium Level 4.7 mmol/L 4.6 mmol/L Chloride Level 98 mmol/L 98 mmol/L Carbon Dioxide Level 34 mmol/L 32 mmol/L Anion Gap 5.0 mmol/L 7.0 mmol/L Blood Urea Nitrogen 60 mg/dl 69 mg/dl Creatinine 4.00 mg/dl 3.99 mg/dl Est Creatinine Clear Calc Drug Dose 19.3 ml/min 19.3 ml/min Estimated GFR () 14.9 15.0 Estimated GFR (Non- 12.9 12.9 BUN/Creatinine Ratio 15.0 17.3 Random Glucose 203 mg/dl 168 mg/dl Calcium Level 8.2 mg/dl 8.3 mg/dl Bedside Glucose 178 mg/dl 163 mg/dl Test 05/27/17 06:59 05/27/17 11:04 Bedside Glucose 161 mg/dl 185 mg/dl Assessment & Plan 86 y/o M w/ 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 His baseline outpt creatinine has since december been 3.5. His creatinine on presentation was 3.7. acute on chronic hypercarbic respiratory failure CT w/ moderate parenchymal lung fibrosis adn chronic interstitial lung dz; no changes since 2011 -bipap prn but likely per pulm, primary service needing more/ longer tx; 02 needs coming down; pulmonary and primary following closely -low threshold for CT chest pending above -LE dopplers negative exacerbation of chronic volume overload multifactorial from cardiorenal syndrome, dietary indiscretions; he had 10.8Ldiuresis since admission 05/24 - 05/26 and feels improved volume vital -would again today hold diuretics given very aggressive diuresis on presentation -diuretic prn only for now > would use lasix 60 mg IV if needed; likely to resume diuretic next 24-48 hrs CKD4, historically not interested in dialysis urine sediment w/ some microhematuria, trace protein; no infection. creatinine plateau'd at 4 from 3.5 baseline now with diuresis -daily bmp pls -no acute indication for dialysis at this time; will cont to discuss pt wishes/ goals of care in this regard >> has this admission stated he would consider a trial of dialysis should the need arise; not discussed today clotted chambers now on cbi; gross hematuria -urology following >>? when to do voiding trial which I worry will not go well; from renal standpoint no need to keep chambers complex cardiovascular hx as above so far heart rates controlled; diuresing well -f/u cardiology recs Appreciate consult; will follow with you. Care coordinated w/ Dr Mendez
[2017-05-27] MEDS: ACETAMINOPHEN 325 MG TAB PO PRN ×2 (13:58→22:55)
--- NOTE | 2017-05-27 14:14 | Pulmonology Progress Note ---
Pulmonary Progress Note Date of Service May 27, 2017. Attending Dr. Wallace Subjective Patient seen and examined this morning. He states that he is feeling much better today. He denies any shortness of breath, chest pain, or cough. He says he slept well last night. Objective VS reviewed. Tm 37.0, BP 154/86-169/91, P 66-76, RR 16-24, Pulse ox 90-100% on 3 -8L NC. About 15 L urine output since admission. Negative balance of 11 L. Off of oxygen this morning, patient was saturating about 75% on RA. Gen: AAOx3, NAD. Speaking in full sentences CVS: S1, S2, Lungs: diminished breath sound bilaterally, no wheezes, no crackles Abd; soft/NT/ND/BS+ Ext: bilateral LE edema +1, no cyanosis, no clubbing Labs reviewed. CO2 32, BUN 69, Cr 3.99 Imaging viewed and reviewed by me. ULTRASOUND VENOUS DOPPLER LWR EXT BILA CLINICAL HISTORY: Bilateral edema. Hypoxia. COMPARISON STUDY: No previous studies for comparison. FINDINGS: Real-time and color flow Doppler imaging were performed. Flow was seen within the femoral, popliteal and calf veins with no intraluminal thrombus demonstrated. The saphenous vein is patent. IMPRESSION: No evidence of lower extremity DVT. Medications reviewed. (CHEST) THORAX WITHOUT CT DOSE: 936.88 mGy.cm HISTORY: Dyspnea evaluate lung parenchyma TECHNIQUE: Multiaxial CT images of the chest were performed without contrast. A dose lowering technique was utilized adhering to the principles of ALARA. COMPARISON: 11/14/2011 FINDINGS: Moderate chronic parenchymal fibrotic change. This is similar as compared to the prior study. Mild pleural thickening left base diminished in the prior exam. Multiple calcified as well as noncalcified parenchymal nodules similar to and are minimally progressive from the prior study. Background chronic interstitial lung disease unchanged the prior exam. Moderate cardiomegaly. IMPRESSION: 1. Findings of the chronic granulomatous as well as a chronic interstitial lung change bilaterally. 2. No major change compared to the prior study 2011. 3. Parenchymal nodularity generally stable from the prior exam. 4. No evidence for an acute or superimposed infiltrative process. Assessment & Plan Acute on chronic hypoxic hypercapnic respiratory failure COPD Combined systolic and diastolic dysfunction. Obesity Acute on chronic kidney injury Patient has acute on chronic respiratory insufficiency which is multifactorial in nature. He is oxygen dependent and has significant desaturations when off oxygen. This is most likely secondary to a combination of COPD, obesity hypoventilation syndrome/JODY and systolic diastolic CHF. 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 Mental status has improved significant today. Continue supplemental oxygenation to maintain SaO2 between 88-92%. Taper FIO2 downs as tolerated. Continue to put him to BiPAP, prn as needed. Continue with DuoNeb inhaler every 4-6 hours flutter valve for aggressive pulmonary toilet. Continue with Advair diskus 500/50 1 puff BID. Continue with Spiriva. Continue with diuresis per nephrology recommendations. Continue to optimize rate control and BP, per cardiology recommendations. He should follow up with pulmonology as an outpatient for further management of COPD and to obtain full PFTs to evaluate severity of his obstruction. I also recommend that he have polysomnography done as an outpatient as well. I appreciate the consult. Please contact me if you have any questions or concerns. Data Medications: Current Inpatient Medications Medications (Trade) Dose Ordered Sig/Ronak Route Start Time Stop Time Status Last Admin Dose Admin Heparin Sodium (Porcine) (Heparin Sq 5000 Unit/0.5ml) 5,000 unit Q8 SQ 05/24/17 22:00 06/23/17 13:59 05/27/17 13:15 5,000 UNIT Acetaminophen (Tylenol Tab) 650 mg Q4H PRN PO 05/24/17 13:15 06/23/17 13:14 Ondansetron HCl (Zofran Inj) 4 mg Q6H PRN IV 05/24/17 13:15 06/23/17 13:14 Nitroglycerin (Nitrostat Tab) 0.4 mg UD PRN SL 05/24/17 13:15 06/23/17 13:14 Insulin Aspart (novoLOG ASPART) SLIDING SCALE If C... ACHS SC 05/24/17 16:15 06/23/17 16:14 05/27/17 13:15 3 UNITS Glucose (Glucose 40% Gel) 15-30 GRAMS 15 GRAMS... UD PRN PO 05/24/17 14:30 06/23/17 14:29 Glucose (Glucose Chew Tab) 4-8 Tablets 4 Tabl... UD PRN PO 05/24/17 14:30 06/23/17 14:29 Dextrose (Dextrose 50% 50ML Syringe) 25-50ML OF 50% DW IV FOR... UD PRN IV 05/24/17 14:30 06/23/17 14:29 Glucagon (Glucagon Inj) 1 mg UD PRN SQ 05/24/17 14:30 06/23/17 14:29 Aspirin (Ecotrin Tab) 81 mg QAM PO 05/25/17 09:00 06/24/17 08:59 05/27/17 07:57 81 MG Clopidogrel Bisulfate (plAVix TAB) 75 mg QAM PO 05/25/17 09:00 06/24/17 08:59 05/27/17 07:57 75 MG Digoxin (Lanoxin Tab) 0.125 mg MoFr@1600 PO 05/26/17 16:00 06/25/17 15:59 05/26/17 16:28 0.125 MG Finasteride (Proscar Tab) 5 mg HS PO 05/24/17 21:00 06/23/17 20:59 05/26/17 20:50 5 MG Fish Oil ([place]-3 (Purified Fish Oil) Cap) 1 gm HS PO 05/24/17 21:00 06/23/17 20:59 05/26/17 20:50 1 GM Gabapentin (Neurontin Cap) 300 mg HS PO 05/24/17 21:00 06/23/17 20:59 05/26/17 20:50 300 MG Metoprolol Succinate (Toprol Xl Tab) 100 mg BID PO 05/24/17 21:00 06/23/17 20:59 05/27/17 07:57 100 MG Simvastatin (Zocor Tab) 40 mg QPM PO 05/24/17 21:00 06/23/17 20:59 05/26/17 20:49 40 MG Tamsulosin HCl (Flomax Cap) 0.4 mg HS PO 05/24/17 21:00 06/23/17 20:59 05/26/17 20:50 0.4 MG Albuterol/ Ipratropium (Duoneb) 3 ml QIDR INH 05/24/17 20:00 06/23/17 19:59 05/27/17 11:10 3 ML Tiotropium [place] (Spiriva Handihaler Inhaler) 1 puff QAM INH 05/27/17 09:00 06/26/17 08:59 05/27/17 07:57 1 PUFF Salmeterol Xinafoate/ Fluticasone (Advair Diskus 500/50 Inh) 1 puff BID INH 05/26/17 21:00 06/25/17 20:59 05/27/17 07:57 1 PUFF Vital Signs: Date Time Temp Pulse Resp B/P (MAP) Pulse Ox O2 Delivery O2 Flow Rate FiO2 05/27/17 12:00 Nasal Cannula 4.0 05/27/17 11:22 36.7 70 22 154/86 (108) 98 05/27/17 11:10 71 16 90 Nasal Cannula 3.0 05/27/17 08:04 36.7 67 24 168/91 (116) 100 Nasal Cannula 3.0 05/27/17 08:00 Nasal Cannula 4.0 05/27/17 06:57 66 16 98 Nasal Cannula 4.0 05/27/17 04:00 Nasal Cannula 4.0 05/27/17 03:25 37.0 76 20 159/72 (101) 91 Oxymask 7.0 05/27/17 00:00 Oxymask 8.0 05/26/17 23:00 36.9 67 18 108/62 (77) 96 BiPAP 05/26/17 22:22 70 96 40 05/26/17 20:00 BiPAP 40 05/26/17 19:39 68 18 87 Nasal Cannula 8.0 05/26/17 19:00 36.9 64 18 114/62 (79) 91 Nasal Cannula 9.0 05/26/17 16:28 65 05/26/17 16:00 BiPAP 40 05/26/17 15:36 67 18 96 Diffusion Mask 10.0 05/26/17 15:00 37.0 71 16 110/64 (79) 94 Oxymask 11.0 Laboratory Results: Last 24 Hours Test 05/26/17 14:55 05/26/17 16:26 05/26/17 20:11 05/27/17 06:09 Sodium Level 137 mmol/L 137 mmol/L Potassium Level 4.7 mmol/L 4.6 mmol/L Chloride Level 98 mmol/L 98 mmol/L Carbon Dioxide Level 34 mmol/L 32 mmol/L Anion Gap 5.0 mmol/L 7.0 mmol/L Blood Urea Nitrogen 60 mg/dl 69 mg/dl Creatinine 4.00 mg/dl 3.99 mg/dl Est Creatinine Clear Calc Drug Dose 19.3 ml/min 19.3 ml/min Estimated GFR () 14.9 15.0 Estimated GFR (Non- 12.9 12.9 BUN/Creatinine Ratio 15.0 17.3 Random Glucose 203 mg/dl 168 mg/dl Calcium Level 8.2 mg/dl 8.3 mg/dl Bedside Glucose 178 mg/dl 163 mg/dl Test 05/27/17 06:59 05/27/17 11:04 Bedside Glucose 161 mg/dl 185 mg/dl
[2017-05-27] MEDS: TAMSULOSIN HCL 0.4 MG CAP PO SCH (21:14)
[2017-05-27] MEDS: FINASTERIDE 5 MG TAB PO SCH (21:14)
[2017-05-27] MEDS: GABAPENTIN 300 MG CAP PO SCH (21:14)
[2017-05-27] MEDS: SIMVASTATIN 40 MG TAB PO SCH (21:14)
[2017-05-27] MEDS: OMEGA-3 (PURIFIED FISH OIL) 1 GM CAP PO SCH (21:14)
--- NOTE | 2017-05-27 22:06 | Progress Note ---
Medicine Progress Note Date & Time of Visit: May 27, 2017 at 18:20 . Subjective No fever. Doesn't tolerate BiPAP well and only wears it for short periods of time. Denies cough or dyspnea. No chest pain. No nausea, vomiting, diarrhea. Still has Wallace cath. . Objective Vital Signs Label Value Date Time Patient Temperature 36.7 C. 05/27/17803 Temperature Source Oral 05/27/17803 Pulse 67 05/27/17803 Location Left Brachial Rhythm Regular Respiratory Rate 24 05/27/17803 Blood Pressure Assessment 168/91 (116) 05/27/17 08 Location Left Arm Source NIBP Position Sitting Bedside Pulse Oximetry 100 % 05/27/17803 Item Value Date Time Oxygen Delivery Method Nasal Cannula 05/27/17803 Oxygen Flow Rate 3.0 L/min 05/27/17803 Physical Exam: General- no acute distress Eyes- anicteric Lungs- essentially clear Heart- regular, no gallop appreciated, + JVD, 2+ pretibial edema Abdomen- obese, soft, nontender - Wallace catheter with grossly bloody urine (but less intense) Extremities- no calf tenderness Neuro- more alert . Laboratory Results: Last 24 Hours Test 05/27/17 06:09 05/27/17 06:59 05/27/17 11:04 05/27/17 15:57 Sodium Level 137 mmol/L Potassium Level 4.6 mmol/L Chloride Level 98 mmol/L Carbon Dioxide Level 32 mmol/L Anion Gap 7.0 mmol/L Blood Urea Nitrogen 69 mg/dl Creatinine 3.99 mg/dl Est Creatinine Clear Calc Drug Dose 19.3 ml/min Estimated GFR () 15.0 Estimated GFR (Non- 12.9 BUN/Creatinine Ratio 17.3 Random Glucose 168 mg/dl Calcium Level 8.3 mg/dl Bedside Glucose 161 mg/dl 185 mg/dl 155 mg/dl Test 05/27/17 21:09 Bedside Glucose 152 mg/dl Assessment & Plan ACUTE ON CHRONIC HYPOXIC, HYPERCAPNIC RESPIRATORY FAILURE Chronic hypoxic respiratory failure on home O2 due to COPD. Acute hypoxic/hypercapnic respiratory failure secondary to combination of CHF, COPD, possible underlying interstitial lung disease, sleep apnea, obesity hypoventilation syndrome. Titrate supplemental oxygen. BiPAP as necessary for ventilatory support. Management of specific problems as outlined below. CHF (acute on chronic) History of left ventricular systolic heart failure with EF of 35-40 percent, left ventricular diastolic heart failure, probable right-sided heart failure. Exam, chest x-ray, elevated BNP consistent with acute exacerbation. Echocardiogram demonstrates mild concentric LVH, inferior and inferolateral wall motion abnormalities, overall LVEF 35 -40%, mild tricuspid regurgitation, grade II diastolic dysfunction, mild aortic valve sclerosis without stenosis, no apparent pulmonary hypertension. Received IV furosemide with brisk diuresis. Creatine natali with diuresis. Titrate furosemide. No NICO or ARB due to CKD. CORONARY ARTERY DISEASE No chest pain. Cardiac markers negative. Continue aspirin, clopidogrel, metoprolol, statin. PAROXYSMAL ATRIAL FIB Continue digoxin and metoprolol. No anticoagulation due to history of GI bleeding. COPD Continue O2, bronchodilators. Pulmonary Medicine consulted. PROBABLE SLEEP APNEA / HYPOVENTILATION SYNDROME Continue BiPAP. Review history re: sleep study. PULMONARY NODULES Noted on previous imaging. Check outpatient studies. DIABETES MELLITUS TYPE 2 Well-controlled. Hemoglobin A1c 7.2 in clinic last month. FBS = 147. Lantus/NovoLog per protocol. CKD IV + ACUTE KIDNEY INJURY Baseline serum creatinine 3.5. Serum creatinine 3.68 upon admission. Nephrology consulted. Creatinine has risen with diuresis. Serum creatinine today = 4.0. Avoid potential nephrotoxins when able. Follow. HYPERTENSION Continue metoprolol succinate Follow and titrate Rx. BPH Wallace inserted by Urology. Continue finasteride and tamsulosin. HEMATURIA Gross hematuria noted after Wallace catheter insertion. May eventually need cystoscopy. VTE PROPHYLAXIS SQ heparin. Ambulate as able. DISPOSITION Anticipated discharge to home. Family Medicine follow-up with and Dr. Kam Dickey. . Current Inpatient Medications: Current Inpatient Medications Medications (Trade) Dose Ordered Sig/[facility] Route Start Time Stop Time Status Last Admin Dose Admin Heparin Sodium (Porcine) (Heparin Sq 5000 Unit/0.5ml) 5,000 unit Q8 SQ 05/24/17 22:00 06/23/17 13:59 05/27/17 21:15 5,000 UNIT Acetaminophen (Tylenol Tab) 650 mg Q4H PRN PO 05/24/17 13:15 06/23/17 13:14 05/27/17 13:58 650 MG Ondansetron HCl (Zofran Inj) 4 mg Q6H PRN IV 05/24/17 13:15 06/23/17 13:14 Nitroglycerin (Nitrostat Tab) 0.4 mg UD PRN SL 05/24/17 13:15 06/23/17 13:14 Insulin Aspart (novoLOG ASPART) SLIDING SCALE If C... ACHS SC 05/24/17 16:15 06/23/17 16:14 05/27/17 16:58 3 UNITS Glucose (Glucose 40% Gel) 15-30 GRAMS 15 GRAMS... UD PRN PO 05/24/17 14:30 06/23/17 14:29 Glucose (Glucose Chew Tab) 4-8 Tablets 4 Tabl... UD PRN PO 05/24/17 14:30 06/23/17 14:29 Dextrose (Dextrose 50% 50ML Syringe) 25-50ML OF 50% DW IV FOR... UD PRN IV 05/24/17 14:30 06/23/17 14:29 Glucagon (Glucagon Inj) 1 mg UD PRN SQ 05/24/17 14:30 06/23/17 14:29 Aspirin (Ecotrin Tab) 81 mg QAM PO 05/25/17 09:00 06/24/17 08:59 05/27/17 07:57 81 MG Clopidogrel Bisulfate (plAVix TAB) 75 mg QAM PO 05/25/17 09:00 06/24/17 08:59 05/27/17 07:57 75 MG Digoxin (Lanoxin Tab) 0.125 mg MoFr@1600 PO 05/26/17 16:00 06/25/17 15:59 05/26/17 16:28 0.125 MG Finasteride (Proscar Tab) 5 mg HS PO 05/24/17 21:00 06/23/17 20:59 05/27/17 21:14 5 MG Fish Oil ([place]-3 (Purified Fish Oil) Cap) 1 gm HS PO 05/24/17 21:00 06/23/17 20:59 05/27/17 21:14 1 GM Gabapentin (Neurontin Cap) 300 mg HS PO 05/24/17 21:00 06/23/17 20:59 05/27/17 21:14 300 MG Metoprolol Succinate (Toprol Xl Tab) 100 mg BID PO 05/24/17 21:00 06/23/17 20:59 05/27/17 21:14 100 MG Simvastatin (Zocor Tab) 40 mg QPM PO 05/24/17 21:00 06/23/17 20:59 05/27/17 21:14 40 MG Tamsulosin HCl (Flomax Cap) 0.4 mg HS PO 05/24/17 21:00 06/23/17 20:59 05/27/17 21:14 0.4 MG Albuterol/ Ipratropium (Duoneb) 3 ml QIDR INH 05/24/17 20:00 06/23/17 19:59 05/27/17 19:16 3 ML Tiotropium [place] (Spiriva Handihaler Inhaler) 1 puff QAM INH 05/27/17 09:00 06/26/17 08:59 05/27/17 07:57 1 PUFF Salmeterol Xinafoate/ Fluticasone (Advair Diskus 500/50 Inh) 1 puff BID INH 05/26/17 21:00 06/25/17 20:59 05/27/17 21:13 1 PUFF
[2017-05-28] VITALS (10 sets, daily range): BP systolic 125–155; BP diastolic 66–82; PULSE 65–82; TEMP 36.5–37; O2SAT 90–97
[2017-05-28] MEDS: HEPARIN SOD 5000 UNIT/0.5 ML CARP SQ SCH ×3 (05:53→21:09)
[2017-05-28 06:48] LABS: BUN/CREATININE RATIO 19.1 (10-20); CALCIUM 8.2 mg/dl (8.5-10.1); CREATININE 3.62 mg/dl (0.60-1.40); POTASSIUM 4.1 mmol/L (3.5-5.1)
[2017-05-28] MEDS: ALBUT/IPRATROP 3MG/0.5MG NEB 3 ML VIAL INH SCH ×4 (06:55→19:15)
[2017-05-28] MEDS: METOPROLOL SUCC 50MG EXT REL TAB PO SCH ×2 (07:45→21:06)
[2017-05-28] MEDS: CLOPIDOGREL BISULFATE 75 MG TAB PO SCH (07:46)
[2017-05-28] MEDS: FLUTICASONE/SALMETEROL (ADVAIR) 500/50 INH 14 PUFF INH SCH ×2 (07:46→21:06)
[2017-05-28] MEDS: ASPIRIN 81 MG ECTAB PO SCH (07:46)
[2017-05-28] MEDS: TIOTROPIUM BROMIDE 5 PUFF/90 MCG INH INH SCH (07:46)
[2017-05-28] MEDS: INSULIN ASPART 100 UNITS/ML 3 ML PEN SC SCH ×4 (07:53→20:41)
--- NOTE | 2017-05-28 09:59 | Progress Note ---
Medicine Progress Note Date & Time of Visit: May 28, 2017 at 09:43 . Subjective Only wore BiPAP for about 1 + 1/2 hrs last night. Desats quickly when supplemental O2 off. Tired today. No fever. Rare cough. No dyspnea at rest. No chest pain. No nausea, vomiting, diarrhea. Still has Wallace cath. . Objective Last 8 Hrs Date Time Temp Pulse Resp B/P (MAP) Pulse Ox O2 Delivery O2 Flow Rate FiO2 05/28/17 08:00 Nasal Cannula 3.0 05/28/17 07:30 36.7 78 20 144/66 (92) 93 Nasal Cannula 3.0 05/28/17 06:57 71 16 90 Mask 4.0 05/28/17 04:00 Nasal Cannula 4.0 05/28/17 03:45 36.8 67 20 125/71 (89) 97 Oxymask 2.0 Physical Exam: General- lying in bed, no acute distress Eyes- anicteric Lungs- mild wheezing Heart- regular, no gallop appreciated, + JVD, 1 + pretibial edema Abdomen- obese, soft, nontender - Wallace catheter with blood-tinged sky urine Extremities- no calf tenderness Neuro- mild somnolence . Laboratory Results: Last 24 Hours Test 05/27/17 11:04 05/27/17 15:57 05/27/17 21:09 05/28/17 06:01 Bedside Glucose 185 mg/dl 155 mg/dl 152 mg/dl Sodium Level 136 mmol/L Potassium Level 4.1 mmol/L Chloride Level 98 mmol/L Carbon Dioxide Level 31 mmol/L Anion Gap 7.0 mmol/L Blood Urea Nitrogen 69 mg/dl Creatinine 3.62 mg/dl Est Creatinine Clear Calc Drug Dose 21.2 ml/min Estimated GFR () 16.8 Estimated GFR (Non- 14.5 BUN/Creatinine Ratio 19.1 Random Glucose 139 mg/dl Calcium Level 8.2 mg/dl Test 05/28/17 06:33 Bedside Glucose 148 mg/dl Assessment & Plan ACUTE ON CHRONIC HYPOXIC, HYPERCAPNIC RESPIRATORY FAILURE Chronic hypoxic respiratory failure on home O2 due to COPD. Acute hypoxic/hypercapnic respiratory failure secondary to combination of CHF, COPD, possible underlying interstitial lung disease, sleep apnea, obesity hypoventilation syndrome. Titrate supplemental oxygen as necessary. BiPAP as necessary for ventilatory support- needs encouragement. Management of specific problems as outlined below. CHF (acute on chronic) History of left ventricular systolic heart failure with EF of 35-40 percent, left ventricular diastolic heart failure, probable right-sided heart failure. Exam, chest x-ray, elevated BNP consistent with acute exacerbation. Echocardiogram demonstrated mild concentric LVH, inferior and inferolateral wall motion abnormalities, overall LVEF 35 -40%, mild tricuspid regurgitation, grade II diastolic dysfunction, mild aortic valve sclerosis without stenosis, no apparent pulmonary hypertension. Received IV furosemide with brisk diuresis. Creatine natali with diuresis. Titration of furosemide per Nephrology. No NICO or ARB due to CKD. CORONARY ARTERY DISEASE No chest pain. Cardiac markers negative. Continue aspirin, clopidogrel, metoprolol, statin. PAROXYSMAL ATRIAL FIB Continue digoxin and metoprolol. No anticoagulation due to history of GI bleeding. COPD Continue O2, bronchodilators. Pulmonary Medicine consulted. PROBABLE SLEEP APNEA / HYPOVENTILATION SYNDROME Continue BiPAP. Unable to find any documented sleep studies. PULMONARY NODULES Noted on previous CT imaging as far back as 2011. PET scan 04/06/16: bilat pulmonary granulomata bilat noncalcified pulmonary nodules, no "appreciable" FDG activity CT 05/27/17- stable findings compared to 2012. DIABETES MELLITUS TYPE 2 Well-controlled. Hemoglobin A1c 7.2 in clinic last month. FBS = 148. Lantus/NovoLog per protocol. CKD IV + ACUTE KIDNEY INJURY Baseline serum creatinine 3.5. Serum creatinine 3.68 upon admission. Nephrology consulted. Creatinine has risen with diuresis. Serum creatinine today = 3.62. Titration of furosemide per Nephrology. Avoid potential nephrotoxins when able. Follow. HYPERTENSION Continue metoprolol succinate Follow and titrate Rx. BPH Wallace inserted by Urology. Continue finasteride and tamsulosin. Removal of Wallace per Urology. HEMATURIA Gross hematuria noted after Wallace catheter insertion. May eventually need cystoscopy. GENERAL DEBILITATION PT / OT evals. VTE PROPHYLAXIS SQ heparin. Ambulate as able. DISPOSITION To be determined. May need skilled care or rehab. PT / OT evals. Case Management following. Family Medicine follow-up with and Dr. Kam Dickey. . Current Inpatient Medications: Current Inpatient Medications Medications (Trade) Dose Ordered Sig/[facility] Route Start Time Stop Time Status Last Admin Dose Admin Heparin Sodium (Porcine) (Heparin Sq 5000 Unit/0.5ml) 5,000 unit Q8 SQ 05/24/17 22:00 06/23/17 13:59 05/28/17 05:53 5,000 UNIT Acetaminophen (Tylenol Tab) 650 mg Q4H PRN PO 05/24/17 13:15 06/23/17 13:14 05/27/17 22:55 650 MG Ondansetron HCl (Zofran Inj) 4 mg Q6H PRN IV 05/24/17 13:15 06/23/17 13:14 Nitroglycerin (Nitrostat Tab) 0.4 mg UD PRN SL 05/24/17 13:15 06/23/17 13:14 Insulin Aspart (novoLOG ASPART) SLIDING SCALE If C... ACHS SC 05/24/17 16:15 06/23/17 16:14 05/28/17 07:53 4 UNITS Glucose (Glucose 40% Gel) 15-30 GRAMS 15 GRAMS... UD PRN PO 05/24/17 14:30 06/23/17 14:29 Glucose (Glucose Chew Tab) 4-8 Tablets 4 Tabl... UD PRN PO 05/24/17 14:30 06/23/17 14:29 Dextrose (Dextrose 50% 50ML Syringe) 25-50ML OF 50% DW IV FOR... UD PRN IV 05/24/17 14:30 06/23/17 14:29 Glucagon (Glucagon Inj) 1 mg UD PRN SQ 05/24/17 14:30 06/23/17 14:29 Aspirin (Ecotrin Tab) 81 mg QAM PO 05/25/17 09:00 06/24/17 08:59 05/28/17 07:46 81 MG Clopidogrel Bisulfate (plAVix TAB) 75 mg QAM PO 05/25/17 09:00 06/24/17 08:59 05/28/17 07:46 75 MG Digoxin (Lanoxin Tab) 0.125 mg MoFr@1600 PO 05/26/17 16:00 06/25/17 15:59 05/26/17 16:28 0.125 MG Finasteride (Proscar Tab) 5 mg HS PO 05/24/17 21:00 06/23/17 20:59 05/27/17 21:14 5 MG Fish Oil ([place]-3 (Purified Fish Oil) Cap) 1 gm HS PO 05/24/17 21:00 06/23/17 20:59 05/27/17 21:14 1 GM Gabapentin (Neurontin Cap) 300 mg HS PO 05/24/17 21:00 06/23/17 20:59 05/27/17 21:14 300 MG Metoprolol Succinate (Toprol Xl Tab) 100 mg BID PO 05/24/17 21:00 06/23/17 20:59 05/28/17 07:45 100 MG Simvastatin (Zocor Tab) 40 mg QPM PO 05/24/17 21:00 06/23/17 20:59 05/27/17 21:14 40 MG Tamsulosin HCl (Flomax Cap) 0.4 mg HS PO 05/24/17 21:00 06/23/17 20:59 05/27/17 21:14 0.4 MG Albuterol/ Ipratropium (Duoneb) 3 ml QIDR INH 05/24/17 20:00 06/23/17 19:59 05/28/17 06:55 3 ML Tiotropium [place] (Spiriva Handihaler Inhaler) 1 puff QAM INH 05/27/17 09:00 06/26/17 08:59 05/28/17 07:46 1 PUFF Salmeterol Xinafoate/ Fluticasone (Advair Diskus 500/50 Inh) 1 puff BID INH 05/26/17 21:00 06/25/17 20:59 05/28/17 07:46 1 PUFF
--- NOTE | 2017-05-28 11:51 | Cardiology Follow-Up ---
Subjective General Date of Service: May 28, 2017. Chief Complaint: SOB Pt evaluation today including: conversation w/ patient, physical exam, chart review, lab review, review of studies, review of inpatient medication list History of Present Illness The patient is a 86 year old male seen in follow-up. No changes overnight. Refusing to wear BiPAP. Diuretics remain on hold. Denies chest pain or shortness of breath. Creatinine trending downward. Allergies Coded Allergies: Iodine (Verified Allergy, Mild, HIVES, 05/24/17) Sulfa Antibiotics (Verified Allergy, Unknown, ENTERED SULFA- UNKNOWN, 05/24/17) Social History Smoking Status: Former Smoker Hx Tobacco Use In Past Year?: No Hx Alcohol Use - Type And Amou: No Hx Substance Use - Type And Am: No Problem List Medical Problems: (1) ARF (acute renal failure) Status: Acute (2) Chronic hypoxemic respiratory failure Status: Chronic (3) Diverticulitis Status: Acute (4) Hyperglycemia Status: Acute (5) Lower GI bleed Status: Acute (6) Renal failure Status: Acute Review of Systems Respiratory: + dyspnea on exertion, No cough, No sputum, No wheezing, No shortness of breath, No dyspnea at rest, No hemoptysis Cardiac: + edema, No chest pain, No orthopnea, No PND, No claudication, No palpitations Physical Exam Vital Signs Last Vital Signs Documentation Date Time Temp Pulse Resp B/P (MAP) Pulse Ox O2 Delivery O2 Flow Rate FiO2 05/28/17 11:39 37.0 82 18 129/82 (98) 97 05/28/17 11:15 Nasal Cannula 3.0 05/27/17 22:17 40 Physical Exam Constitutional: General Apperance: obese Level of Distress: NAD, acutely ill, chronically ill Psychiatric: Mental Status: active & alert Orientation: to time, to place, to person Head: atraumatic Eyes: Pupils: PERRLA Neck: supple Lungs: Respiratory effort: no dyspnea Auscultation: no wheezing, no rhonchi, deminished air movement, wet rales/ crackles, rhonchi Cardiovascular: Heart Auscultation: RRR, normal S1, normal S2, no murmurs Abdomen: Bowel Sounds: normal Inspection & Palpation: soft, non-distended Extremities: edema (trace pretibial edema) Neurologic: Gait & Station: pertinent finding (no focal motor deficit) Cranial Nerves: grossly intact Assessment and Plan Assessment and Plan Impression: 1. Acute on chronic multifactorial respiratory failure with hypoxia and hypercapnia 2. Acute on chronic systolic heart failure exacerbation, likely biventricular with cardiorenal syndrome. 3. Acute on chronic renal insufficiency -creatinine unchanged today 4. Paroxysmal atrial fibrillation currently sinus rhythm on telemetry 5. Chronic coronary artery disease 6. Severe oxygen dependent COPD 7. History of hyperkalemia 8. Dyslipidemia - controlled 9. Hypertension - controlled PLAN: Diuretic therapy will remain on hold today. Consider restarting in the next 24- 48 hours. Other cardiovascular meds including Toprol-XL, simvastatin, aspirin, and digoxin will be continued at this time. Appreciate pulmonary input. Encouraged patient to use BiPAP as recommended. Will continue to follow during hospitalization. Laboratory Results Last 24 Hours Test 05/27/17 15:57 05/27/17 21:09 05/28/17 06:01 05/28/17 06:33 Bedside Glucose 155 mg/dl 152 mg/dl 148 mg/dl Sodium Level 136 mmol/L Potassium Level 4.1 mmol/L Chloride Level 98 mmol/L Carbon Dioxide Level 31 mmol/L Anion Gap 7.0 mmol/L Blood Urea Nitrogen 69 mg/dl Creatinine 3.62 mg/dl Est Creatinine Clear Calc Drug Dose 21.2 ml/min Estimated GFR () 16.8 Estimated GFR (Non- 14.5 BUN/Creatinine Ratio 19.1 Random Glucose 139 mg/dl Calcium Level 8.2 mg/dl Test 05/28/17 11:12 Bedside Glucose 221 mg/dl
[2017-05-28] MEDS: AMOXICILLIN 500 MG CAP PO SCH ×2 (13:15→21:07)
[2017-05-28] MEDS: GABAPENTIN 300 MG CAP PO SCH (21:06)
[2017-05-28] MEDS: SIMVASTATIN 40 MG TAB PO SCH (21:06)
[2017-05-28] MEDS: TAMSULOSIN HCL 0.4 MG CAP PO SCH (21:06)
[2017-05-28] MEDS: OMEGA-3 (PURIFIED FISH OIL) 1 GM CAP PO SCH (21:06)
[2017-05-28] MEDS: FINASTERIDE 5 MG TAB PO SCH (21:07)
[2017-05-28] MEDS: INSULIN GLARGINE SOLOSTAR 100 UNITS/ML 3 ML PEN SC SCH (21:08)
[2017-05-29] VITALS (15 sets, daily range): BP systolic 126–164; BP diastolic 63–89; PULSE 67–95; TEMP 36.4–37.2; O2SAT 80–100
[2017-05-29 05:16] LABS: HEMATOCRIT 30.1 % (42-52); MEAN CELL VOLUME 92.9 fL (80-100); MEAN CORPUSCULAR HEMOGLOBIN 29.9 pg (25-34); MEAN CORPUSCULAR HGB CONC 32.2 g/dl (32-36); MEAN PLATELET VOLUME 10.7 fL (7.4-10.4); PLATELET COUNT 132 K/uL (130-400); RED BLOOD COUNT 3.24 M/uL (4.7-6.1); WHITE BLOOD COUNT 8.77 K/uL (4.8-10.8)
[2017-05-29 05:55] LABS: BUN/CREATININE RATIO 20.3 (10-20); CALCIUM 8.6 mg/dl (8.5-10.1); CREATININE 3.53 mg/dl (0.60-1.40); POTASSIUM 4.2 mmol/L (3.5-5.1)
[2017-05-29] MEDS: HEPARIN SOD 5000 UNIT/0.5 ML CARP SQ SCH ×3 (06:28→21:52)
[2017-05-29] MEDS: ALBUT/IPRATROP 3MG/0.5MG NEB 3 ML VIAL INH SCH ×4 (06:58→18:59)
[2017-05-29] MEDS: AMOXICILLIN 500 MG CAP PO SCH ×3 (08:04→21:40)
[2017-05-29] MEDS: TIOTROPIUM BROMIDE 5 PUFF/90 MCG INH INH SCH (08:04)
[2017-05-29] MEDS: FLUTICASONE/SALMETEROL (ADVAIR) 500/50 INH 14 PUFF INH SCH ×2 (08:04→21:48)
[2017-05-29] MEDS: CLOPIDOGREL BISULFATE 75 MG TAB PO SCH (08:05)
[2017-05-29] MEDS: METOPROLOL SUCC 50MG EXT REL TAB PO SCH ×2 (08:05→21:40)
[2017-05-29] MEDS: ASPIRIN 81 MG ECTAB PO SCH (08:05)
[2017-05-29] MEDS: INSULIN ASPART 100 UNITS/ML 3 ML PEN SC SCH ×4 (08:12→21:50)
[2017-05-29] MEDS: INSULIN GLARGINE SOLOSTAR 100 UNITS/ML 3 ML PEN SC SCH ×2 (08:13→21:51)
--- NOTE | 2017-05-29 09:41 | Nephrology Progress Note ---
Nephrology Progress Note Date of Service: May 29, 2017. Subjective eating now. no n/v. denies dyspnea, denies worsening edema; remains eager for chambers removal Objective Date Time Temp Pulse Resp B/P (MAP) Pulse Ox O2 Delivery O2 Flow Rate FiO2 05/29/17 08:31 100 Room Air 3.0 40 05/29/17 08:21 100 Room Air 05/29/17 08:16 36.4 81 16 134/79 (97) Room Air 05/29/17 07:20 37.2 73 14 164/89 (114) 96 3.0 05/29/17 07:01 69 16 86 Mask 2.0 05/29/17 04:00 Nasal Cannula 3.0 05/29/17 03:30 37.0 74 20 133/66 (88) 95 Nasal Cannula 2.5 05/28/17 23:59 Nasal Cannula 3.0 05/28/17 23:03 36.5 70 21 152/76 (101) 95 Oxymask 2.5 05/28/17 20:00 Nasal Cannula 3.0 05/28/17 19:16 71 18 91 Nasal Cannula 2.0 05/28/17 19:00 36.6 71 20 155/74 (101) 92 Nasal Cannula 2.0 05/28/17 16:00 Nasal Cannula 3.0 05/28/17 15:52 76 15 90 Nasal Cannula 2.0 05/28/17 15:00 36.8 65 22 133/73 (93) 91 Nasal Cannula 2.0 05/28/17 12:00 Nasal Cannula 3.0 05/28/17 11:39 37.0 82 18 129/82 (98) 97 05/28/17 11:15 77 16 96 Nasal Cannula 3.0 Physical Exam: General Appearance: WD/WN, no apparent distress, + obese, + pertinent finding ( BL temporal wasting, on 02NC, sitting on side of bed eating eagerly), Eyes: EOMI ENT: hearing grossly normal, + muffled/hoarse voice Neck: supple Respiratory/Chest: + very decreased breath sounds; no crackles Cardiovascular: regular rate, rhythm, + pertinent finding (trace peripheral bl edema) Abdomen: normal bowel sounds, non tender, soft, + pertinent finding (chambers w/ blood tinged urine and clot/sediment) Extremities: non-tender, + pedal edema Neurologic/Psych: some psychomotor slowing but articulate when breakfast taken away (did not get any), normal mood/affect, oriented x 3 Skin: no jaundice, warm/dry, no rash Current Inpatient Medications Medications (Trade) Dose Ordered Sig/[facility] Route Start Time Stop Time Status Last Admin Dose Admin Heparin Sodium (Porcine) (Heparin Sq 5000 Unit/0.5ml) 5,000 unit Q8 SQ 05/24/17 22:00 06/23/17 13:59 05/29/17 06:28 5,000 UNIT Acetaminophen (Tylenol Tab) 650 mg Q4H PRN PO 05/24/17 13:15 06/23/17 13:14 05/27/17 22:55 650 MG Ondansetron HCl (Zofran Inj) 4 mg Q6H PRN IV 05/24/17 13:15 06/23/17 13:14 Nitroglycerin (Nitrostat Tab) 0.4 mg UD PRN SL 05/24/17 13:15 06/23/17 13:14 Insulin Aspart (novoLOG ASPART) SLIDING SCALE If C... ACHS SC 05/24/17 16:15 06/23/17 16:14 05/29/17 08:12 2 UNITS Glucose (Glucose 40% Gel) 15-30 GRAMS 15 GRAMS... UD PRN PO 05/24/17 14:30 06/23/17 14:29 Glucose (Glucose Chew Tab) 4-8 Tablets 4 Tabl... UD PRN PO 05/24/17 14:30 06/23/17 14:29 Dextrose (Dextrose 50% 50ML Syringe) 25-50ML OF 50% DW IV FOR... UD PRN IV 05/24/17 14:30 06/23/17 14:29 Glucagon (Glucagon Inj) 1 mg UD PRN SQ 05/24/17 14:30 06/23/17 14:29 Aspirin (Ecotrin Tab) 81 mg QAM PO 05/25/17 09:00 06/24/17 08:59 05/29/17 08:05 81 MG Clopidogrel Bisulfate (plAVix TAB) 75 mg QAM PO 05/25/17 09:00 06/24/17 08:59 05/29/17 08:05 75 MG Digoxin (Lanoxin Tab) 0.125 mg MoFr@1600 PO 05/26/17 16:00 06/25/17 15:59 05/26/17 16:28 0.125 MG Finasteride (Proscar Tab) 5 mg HS PO 05/24/17 21:00 06/23/17 20:59 05/28/17 21:07 5 MG Fish Oil ([place]-3 (Purified Fish Oil) Cap) 1 gm HS PO 05/24/17 21:00 06/23/17 20:59 05/28/17 21:06 1 GM Gabapentin (Neurontin Cap) 300 mg HS PO 05/24/17 21:00 06/23/17 20:59 05/28/17 21:06 300 MG Metoprolol Succinate (Toprol Xl Tab) 100 mg BID PO 05/24/17 21:00 06/23/17 20:59 05/29/17 08:05 100 MG Simvastatin (Zocor Tab) 40 mg QPM PO 05/24/17 21:00 06/23/17 20:59 05/28/17 21:06 40 MG Tamsulosin HCl (Flomax Cap) 0.4 mg HS PO 05/24/17 21:00 06/23/17 20:59 05/28/17 21:06 0.4 MG Albuterol/ Ipratropium (Duoneb) 3 ml QIDR INH 05/24/17 20:00 06/23/17 19:59 05/29/17 06:58 3 ML Tiotropium [place] (Spiriva Handihaler Inhaler) 1 puff QAM INH 05/27/17 09:00 06/26/17 08:59 05/29/17 08:04 1 PUFF Salmeterol Xinafoate/ Fluticasone (Advair Diskus 500/50 Inh) 1 puff BID INH 05/26/17 21:00 06/25/17 20:59 05/29/17 08:04 1 PUFF Amoxicillin (Amoxil Cap) 500 mg TID PO 05/28/17 14:00 06/02/17 13:59 05/29/17 08:04 500 MG Insulin Glargine (Lantus Solostar Pen) BSG LANTUS SQ < ... BID SC 05/28/17 21:00 06/27/17 20:59 05/29/17 08:13 15 UNITS Last 24 Hours Test 05/28/17 11:12 05/28/17 16:29 05/28/17 20:14 05/29/17 04:53 Bedside Glucose 221 mg/dl 139 mg/dl 156 mg/dl White Blood Count 8.77 K/uL Red Blood Count 3.24 M/uL Hemoglobin 9.7 g/dL Hematocrit 30.1 % Mean Corpuscular Volume 92.9 fL Mean Corpuscular Hemoglobin 29.9 pg Mean Corpuscular Hemoglobin Concent 32.2 g/dl RDW Standard Deviation 49.4 fL RDW Coefficient of Variation 14.5 % Platelet Count 132 K/uL Mean Platelet Volume 10.7 fL Sodium Level 137 mmol/L Potassium Level 4.2 mmol/L Chloride Level 99 mmol/L Carbon Dioxide Level 31 mmol/L Anion Gap 7.0 mmol/L Blood Urea Nitrogen 72 mg/dl Creatinine 3.53 mg/dl Est Creatinine Clear Calc Drug Dose 21.8 ml/min Estimated GFR () 17.4 Estimated GFR (Non- 15.0 BUN/Creatinine Ratio 20.3 Random Glucose 154 mg/dl Calcium Level 8.6 mg/dl Test 05/29/17 07:07 Bedside Glucose 155 mg/dl Assessment & Plan 86 y/o M w/ 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 His baseline outpt creatinine has since december been 3.5. His creatinine on presentation was 3.7. acute on chronic hypoxic, hypercarbic respiratory failure CT w/ moderate parenchymal lung fibrosis adn chronic interstitial lung dz; no changes since 2011; EF 35% -bipap as tolerated; pulmonary and primary following closely exacerbation of chronic volume overload, improving multifactorial from cardiorenal syndrome, dietary indiscretions; he had 10.8Ldiuresis from admission 05/24 - 05/26 and feels improved/stable volume vital -on <2 gm daily Na diet >>after discussion w/ Dr Mendez will order 1.5L daily fluid limit and gentle resumption of diuretics >> 60 mg po bid (a bit lower than prior to admission) CKD4, historically not interested in dialysis urine sediment w/ some microhematuria, trace protein; no infection. creatinine plateau'd at 4 now back to 3.5 baseline -daily bmp -no acute indication for dialysis at this time >> pt has this admission stated he would consider a trial of dialysis should the need arise clotted chambers now on cbi; gross hematuria -urology following >>for voiding trial soon, though risk for recurrent urinary retention high complex cardiovascular hx as above so far heart rates controlled; diuresing well -f/u cardiology recs Appreciate consult; will follow with you. Care coordinated w/ Dr Mendez
[2017-05-29] MEDS ORDERED: FUROSEMIDE 40 MG TAB PO ONE (10:15)
--- NOTE | 2017-05-29 10:55 | Cardiology Follow-Up ---
Subjective General Date of Service: May 29, 2017. Chief Complaint: SOB Pt evaluation today including: conversation w/ patient, physical exam, chart review, lab review, review of studies, review of inpatient medication list History of Present Illness Patient seen and examined while laying awkwardly, half on the hospital bed and bedside chair. Anxious for chambers catheter removal. Sleepy. BiPAP refused. Denies chest pain. Dyspnea is back to baseline. Denies palpitations. Diuretics are to be restarted today at 60 mg BID (home dose was 80 mg BID) Telemetry: Sinus in the 70s with PAC's and PVC's. No overt atrial fibrillation. No significant pauses. Allergies Coded Allergies: Iodine (Verified Allergy, Mild, HIVES, 05/24/17) Sulfa Antibiotics (Verified Allergy, Unknown, ENTERED SULFA- UNKNOWN, 05/24/17) Social History Smoking Status: Former Smoker Hx Tobacco Use In Past Year?: No Hx Alcohol Use - Type And Amou: No Hx Substance Use - Type And Am: No Problem List Medical Problems: (1) ARF (acute renal failure) Status: Acute (2) Chronic hypoxemic respiratory failure Status: Chronic (3) Diverticulitis Status: Acute (4) Hyperglycemia Status: Acute (5) Lower GI bleed Status: Acute (6) Renal failure Status: Acute Review of Systems Respiratory: + shortness of breath, + dyspnea on exertion, No cough, No wheezing, No dyspnea at rest, No hemoptysis Cardiac: + edema, No chest pain, No orthopnea, No claudication, No palpitations Physical Exam Vital Signs Last Vital Signs Documentation Date Time Temp Pulse Resp B/P (MAP) Pulse Ox O2 Delivery O2 Flow Rate FiO2 05/29/17 08:31 100 Room Air 3.0 40 05/29/17 08:16 36.4 81 16 134/79 (97) Physical Exam Constitutional: General Apperance: obese Level of Distress: NAD, acutely ill, chronically ill Psychiatric: Mental Status: active & alert Orientation: to time, to place, to person Head: atraumatic Eyes: Pupils: PERRLA Neck: supple Lungs: Respiratory effort: no dyspnea Auscultation: no wheezing, no rales/crackles, no rhonchi, deminished air movement, decreased breath sounds Cardiovascular: Heart Auscultation: RRR, normal S1, normal S2, no murmurs Abdomen: Bowel Sounds: normal Inspection & Palpation: soft, non-distended Extremities: edema (mild pretibial edema) Neurologic: Gait & Station: pertinent finding (no focal motor deficit) Cranial Nerves: grossly intact Assessment and Plan Assessment and Plan Admission with acute on chronic multifactorial respiratory failure with hypoxia and hypercapnia, acute on chronic systolic heart failure exacerbation, biventricular, cardiorenal syndrome. Acute on chronic renal insufficiency. Creatinine improved. Paroxysmal atrial fibrillation. Currently in sinus rhythm Chronic coronary artery disease Severe oxygen dependent COPD History of hyperkalemia Dyslipidemia Hypertension RECOMMENDATIONS/PLAN: Oral diuretics to be resumed today, as ordered by Nephrology Add low dose oral nitrates, Isordil Continue Toprol-XL, simvastatin, aspirin, and digoxin as prescribed. Cardiology attending physician: Patient seen and examined at the bedside. More somnolent today. Answers questions appropriately. Denies chest pain or shortness of breath at rest. Blood tinged urine noted in Chambers bag. Lasix restarted. Continues to refuse BiPAP. PE: VSS. GEN: NAD, chronically ill. Heart: Regular, normal S1, S2, no murmur. Lungs: Diminished breath sounds bilateral. No rales, rhonchi, wheeze. Ext: 1+ pedal edema. A/P: Agree with above PAC history, physical exam, assessment and plan. Oral diuretics restarted. Follow renal function and electrolytes closely. Agree with addition of low-dose long-acting nitrates. Encouraged compliance with BiPAP. Riky Newby DO, [facility] Laboratory Results Last 24 Hours Test 05/28/17 11:12 05/28/17 16:29 05/28/17 20:14 05/29/17 04:53 Bedside Glucose 221 mg/dl 139 mg/dl 156 mg/dl White Blood Count 8.77 K/uL Red Blood Count 3.24 M/uL Hemoglobin 9.7 g/dL Hematocrit 30.1 % Mean Corpuscular Volume 92.9 fL Mean Corpuscular Hemoglobin 29.9 pg Mean Corpuscular Hemoglobin Concent 32.2 g/dl RDW Standard Deviation 49.4 fL RDW Coefficient of Variation 14.5 % Platelet Count 132 K/uL Mean Platelet Volume 10.7 fL Sodium Level 137 mmol/L Potassium Level 4.2 mmol/L Chloride Level 99 mmol/L Carbon Dioxide Level 31 mmol/L Anion Gap 7.0 mmol/L Blood Urea Nitrogen 72 mg/dl Creatinine 3.53 mg/dl Est Creatinine Clear Calc Drug Dose 21.8 ml/min Estimated GFR () 17.4 Estimated GFR (Non- 15.0 BUN/Creatinine Ratio 20.3 Random Glucose 154 mg/dl Calcium Level 8.6 mg/dl Test 05/29/17 07:07 Bedside Glucose 155 mg/dl
--- NOTE | 2017-05-29 11:57 | Pulmonology Progress Note ---
Pulmonary Progress Note Date of Service May 29, 2017. Attending Dr. Foss Subjective Denies pain, discomfort or dyspnea. Objective 86-yo male admitted to [facility] through the ER 05/24/17 acute on chronic hypercarbic hyperpneic multifactorial respiratory failure. Prior records were reviewed. 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 He is a former smoker: 30 pack year, quit 1990. Patient admitted treated for exacerbation of cardiorenal syndrome and obesity hypoventilation with optimization of his COPD regimen. He was diuresed aggressively however hypoxia and CO2 retention persists/progressed. BiPAP continues to be emphasized however patient tolerates this very poorly. Advair increased to 500/50 with addition of Spiriva. Amoxicillin initiated for enterococcus faecalis UTI. Echocardiogram 05/25/17: Severe hypokinetic to akinetic at basal, mid and apical levels. Inferoseptal wall is hypokinetic at basal and mid levels. EF: 35- 40%. Mild TR. Grade II diastolic dysfunction. (CHEST) THORAX WITHOUT CT DOSE: 936.88 mGy.cm HISTORY: Dyspnea evaluate lung parenchyma TECHNIQUE: Multiaxial CT images of the chest were performed without contrast. A dose lowering technique was utilized adhering to the principles of ALARA. COMPARISON: 11/14/2011 FINDINGS: Moderate chronic parenchymal fibrotic change. This is similar as compared to the prior study. Mild pleural thickening left base diminished in the prior exam. Multiple calcified as well as noncalcified parenchymal nodules similar to and are minimally progressive from the prior study. Background chronic interstitial lung disease unchanged the prior exam. Moderate cardiomegaly. IMPRESSION: 1. Findings of the chronic granulomatous as well as a chronic interstitial lung change bilaterally. 2. No major change compared to the prior study 2011. 3. Parenchymal nodularity generally stable from the prior exam. 4. No evidence for an acute or superimposed infiltrative process. Today: - WBC/Hgb/Hct/Plts: 8.77/9.7/30.1/132 - BUN/Cr: 72/3.53 Physical Exam: Constitutional: Obese elderly male sleeping in hospital bed - left lateral position, head at foot of bed, feet off bed onto chair HEENT: Mouth open with dry mucous membranes. Large tongue - no visible lesions Respiratory: non-labored respirations on nasal cannula. Good lung volumes. No audible wheeze or rhonchi. Transmitted upper airway sounds intermittent. CV: Regular rate and rhythm. Warm and perfused peripherally : Soft, active bowel sounds GI: Wallace draining pink colored urine MSK/Extremities: Moving and developed symmetrically. 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 Trade LE edema with venous stasis changes. NO calf tenderness. Neurologic: Somnolent but oriented to persona and place. Able to follow commands. Assessment & Plan Multifactorial Acute on chronic hypoxic hypercapnic respiratory failure secondary to COPD, heart failure - cardiorenal obesity hypoventilation: - Has responded well to diuresis but mental status and ventilation continues to be a problem - no evidence of bronchospasm on exam today to indicate systemic steroid need particularly in the setting of h/o acute volume overload - He will certainly need a BiPAP- PSG and PFTs as outpatient - Continues to struggle with ventilation - will continue to educate and emphasize on PAP. He is at risk of intubation with progression as he is a full codes should he decline. Repeat ABG today. Recommending optimization positioning during sleep to elevate HOB [id number] - Discussed with Dr. Foss Data Medications: Current Inpatient Medications Medications (Trade) Dose Ordered Sig/Ronak Route Start Time Stop Time Status Last Admin Dose Admin Heparin Sodium (Porcine) (Heparin Sq 5000 Unit/0.5ml) 5,000 unit Q8 SQ 05/24/17 22:00 06/23/17 13:59 05/29/17 06:28 5,000 UNIT Acetaminophen (Tylenol Tab) 650 mg Q4H PRN PO 05/24/17 13:15 06/23/17 13:14 05/27/17 22:55 650 MG Ondansetron HCl (Zofran Inj) 4 mg Q6H PRN IV 05/24/17 13:15 06/23/17 13:14 Nitroglycerin (Nitrostat Tab) 0.4 mg UD PRN SL 05/24/17 13:15 06/23/17 13:14 Insulin Aspart (novoLOG ASPART) SLIDING SCALE If C... ACHS SC 05/24/17 16:15 06/23/17 16:14 05/29/17 08:12 2 UNITS Glucose (Glucose 40% Gel) 15-30 GRAMS 15 GRAMS... UD PRN PO 05/24/17 14:30 06/23/17 14:29 Glucose (Glucose Chew Tab) 4-8 Tablets 4 Tabl... UD PRN PO 05/24/17 14:30 06/23/17 14:29 Dextrose (Dextrose 50% 50ML Syringe) 25-50ML OF 50% DW IV FOR... UD PRN IV 05/24/17 14:30 06/23/17 14:29 Glucagon (Glucagon Inj) 1 mg UD PRN SQ 05/24/17 14:30 06/23/17 14:29 Aspirin (Ecotrin Tab) 81 mg QAM PO 05/25/17 09:00 06/24/17 08:59 05/29/17 08:05 81 MG Clopidogrel Bisulfate (plAVix TAB) 75 mg QAM PO 05/25/17 09:00 06/24/17 08:59 05/29/17 08:05 75 MG Digoxin (Lanoxin Tab) 0.125 mg MoFr@1600 PO 05/26/17 16:00 06/25/17 15:59 05/26/17 16:28 0.125 MG Finasteride (Proscar Tab) 5 mg HS PO 05/24/17 21:00 06/23/17 20:59 05/28/17 21:07 5 MG Fish Oil ([place]-3 (Purified Fish Oil) Cap) 1 gm HS PO 05/24/17 21:00 06/23/17 20:59 05/28/17 21:06 1 GM Gabapentin (Neurontin Cap) 300 mg HS PO 05/24/17 21:00 06/23/17 20:59 05/28/17 21:06 300 MG Metoprolol Succinate (Toprol Xl Tab) 100 mg BID PO 05/24/17 21:00 06/23/17 20:59 05/29/17 08:05 100 MG Simvastatin (Zocor Tab) 40 mg QPM PO 05/24/17 21:00 06/23/17 20:59 05/28/17 21:06 40 MG Tamsulosin HCl (Flomax Cap) 0.4 mg HS PO 05/24/17 21:00 06/23/17 20:59 05/28/17 21:06 0.4 MG Albuterol/ Ipratropium (Duoneb) 3 ml QIDR INH 05/24/17 20:00 06/23/17 19:59 05/29/17 06:58 3 ML Tiotropium [place] (Spiriva Handihaler Inhaler) 1 puff QAM INH 05/27/17 09:00 06/26/17 08:59 05/29/17 08:04 1 PUFF Salmeterol Xinafoate/ Fluticasone (Advair Diskus 500/50 Inh) 1 puff BID INH 05/26/17 21:00 06/25/17 20:59 05/29/17 08:04 1 PUFF Amoxicillin (Amoxil Cap) 500 mg TID PO 05/28/17 14:00 06/02/17 13:59 05/29/17 08:04 500 MG Insulin Glargine (Lantus Solostar Pen) BSG LANTUS SQ < ... BID SC 05/28/17 21:00 06/27/17 20:59 05/29/17 08:13 15 UNITS Furosemide (Lasix Tab) 60 mg BID17 PO 05/29/17 17:00 06/28/17 16:59 Furosemide (Lasix Tab) 60 mg 1015 ONCE PO 05/29/17 10:15 05/29/17 10:16 Vital Signs: Date Time Temp Pulse Resp B/P (MAP) Pulse Ox O2 Delivery O2 Flow Rate FiO2 05/29/17 08:31 100 Room Air 3.0 40 05/29/17 08:21 100 Room Air 05/29/17 08:16 36.4 81 16 134/79 (97) Room Air 05/29/17 07:20 37.2 73 14 164/89 (114) 96 3.0 05/29/17 07:01 69 16 86 Mask 2.0 05/29/17 04:00 Nasal Cannula 3.0 05/29/17 03:30 37.0 74 20 133/66 (88) 95 Nasal Cannula 2.5 05/28/17 23:59 Nasal Cannula 3.0 05/28/17 23:03 36.5 70 21 152/76 (101) 95 Oxymask 2.5 05/28/17 20:00 Nasal Cannula 3.0 05/28/17 19:16 71 18 91 Nasal Cannula 2.0 05/28/17 19:00 36.6 71 20 155/74 (101) 92 Nasal Cannula 2.0 05/28/17 16:00 Nasal Cannula 3.0 05/28/17 15:52 76 15 90 Nasal Cannula 2.0 05/28/17 15:00 36.8 65 22 133/73 (93) 91 Nasal Cannula 2.0 05/28/17 12:00 Nasal Cannula 3.0 05/28/17 11:39 37.0 82 18 129/82 (98) 97 05/28/17 11:15 77 16 96 Nasal Cannula 3.0 Laboratory Results: Last 24 Hours Test 05/28/17 11:12 05/28/17 16:29 05/28/17 20:14 05/29/17 04:53 Bedside Glucose 221 mg/dl 139 mg/dl 156 mg/dl White Blood Count 8.77 K/uL Red Blood Count 3.24 M/uL Hemoglobin 9.7 g/dL Hematocrit 30.1 % Mean Corpuscular Volume 92.9 fL Mean Corpuscular Hemoglobin 29.9 pg Mean Corpuscular Hemoglobin Concent 32.2 g/dl RDW Standard Deviation 49.4 fL RDW Coefficient of Variation 14.5 % Platelet Count 132 K/uL Mean Platelet Volume 10.7 fL Sodium Level 137 mmol/L Potassium Level 4.2 mmol/L Chloride Level 99 mmol/L Carbon Dioxide Level 31 mmol/L Anion Gap 7.0 mmol/L Blood Urea Nitrogen 72 mg/dl Creatinine 3.53 mg/dl Est Creatinine Clear Calc Drug Dose 21.8 ml/min Estimated GFR () 17.4 Estimated GFR (Non- 15.0 BUN/Creatinine Ratio 20.3 Random Glucose 154 mg/dl Calcium Level 8.6 mg/dl Test 05/29/17 07:07 Bedside Glucose 155 mg/dl
[2017-05-29 12:47] LABS: ARTERIAL BLOOD GAS HCO3 30 mmol/L (19-24); ARTERIAL BLOOD GAS PO2 48 mm/Hg (80-95); ARTERIAL BLOOD GAS pH 7.34 (7.35-7.45)
[2017-05-29] MEDS: ISOSORBIDE DINITRATE 5 MG TAB PO SCH ×2 (12:48→17:19)
[2017-05-29 12:50] LABS: ALLEN TEST 3L (POS); O2 ADMINISTRATION POS
[2017-05-29 12:53] LABS: ARTERIAL BLD GAS O2 SATURATION 79.9 % (90-95)
[2017-05-29] MEDS: DIGOXIN 0.125 MG TAB PO SCH (17:18)
[2017-05-29] MEDS: FUROSEMIDE 40 MG TAB PO SCH (17:19)
[2017-05-29] MEDS ORDERED: MICONAZOLE NITRATE POWDER 43 GM EXT PRN (21:00)
--- NOTE | 2017-05-29 21:14 | Progress Note ---
Medicine Progress Note Date & Time of Visit: May 29, 2017 at 13:50 . Subjective No new problems. Anxious to get Wallace catheter out. Desaturates easily with activity. Denies cough or shortness of breath. No chest pain. No nausea, vomiting, diarrhea. . Objective Vital Signs Label Value Date Time Patient Temperature 37.2 C. 05/29/17719 Pulse 73 05/29/17719 Location Left Brachial Respiratory Rate 14 05/29/17719 Blood Pressure Assessment 164/89 (114) 05/29/17719 Location Right Arm Source NIBP Position Sitting Bedside Pulse Oximetry 96 % 05/29/17719 Item Value Date Time Oxygen Flow Rate 3.0 L/min 05/29/17719 Physical Exam: General- no acute distress Lungs- mild wheezing Cardiovasc- regular, no gallop appreciated, + JVD, 1 + pretibial edema Abdomen- obese, soft, nontender - Wallace catheter with sky urine Extremities- no calf tenderness Neuro- alert . Laboratory Results: Last 24 Hours Test 05/29/17 04:53 05/29/17 07:07 05/29/17 11:25 05/29/17 12:33 White Blood Count 8.77 K/uL Red Blood Count 3.24 M/uL Hemoglobin 9.7 g/dL Hematocrit 30.1 % Mean Corpuscular Volume 92.9 fL Mean Corpuscular Hemoglobin 29.9 pg Mean Corpuscular Hemoglobin Concent 32.2 g/dl RDW Standard Deviation 49.4 fL RDW Coefficient of Variation 14.5 % Platelet Count 132 K/uL Mean Platelet Volume 10.7 fL Sodium Level 137 mmol/L Potassium Level 4.2 mmol/L Chloride Level 99 mmol/L Carbon Dioxide Level 31 mmol/L Anion Gap 7.0 mmol/L Blood Urea Nitrogen 72 mg/dl Creatinine 3.53 mg/dl Est Creatinine Clear Calc Drug Dose 21.8 ml/min Estimated GFR () 17.4 Estimated GFR (Non- 15.0 BUN/Creatinine Ratio 20.3 Random Glucose 154 mg/dl Calcium Level 8.6 mg/dl Bedside Glucose 155 mg/dl 206 mg/dl Arterial Blood pH 7.34 Arterial Blood Partial Pressure CO2 56 mmHg Arterial Blood Partial Pressure O2 48 mm/Hg Arterial Blood HCO3 30 mmol/L Arterial Blood Oxygen Saturation 79.9 % Arterial Blood Base Excess 3.0 mEq/L Arterial Blood Gas Delivery POS Jay Test 3L Test 05/29/17 16:14 05/29/17 20:14 Bedside Glucose 167 mg/dl 206 mg/dl Assessment & Plan ACUTE ON CHRONIC HYPOXIC, HYPERCAPNIC RESPIRATORY FAILURE Chronic hypoxic respiratory failure on home O2 due to COPD. Acute hypoxic/hypercapnic respiratory failure secondary to combination of CHF, COPD, possible underlying interstitial lung disease, sleep apnea, obesity hypoventilation syndrome. Titrate supplemental oxygen as necessary. BiPAP as necessary for ventilatory support- needs encouragement. Management of specific problems as outlined below. CHF (acute on chronic) History of left ventricular systolic heart failure with EF of 35-40 percent, left ventricular diastolic heart failure, probable right-sided heart failure. Exam, chest x-ray, elevated BNP consistent with acute exacerbation. Echocardiogram demonstrated mild concentric LVH, inferior and inferolateral wall motion abnormalities, overall LVEF 35 -40%, mild tricuspid regurgitation, grade II diastolic dysfunction, mild aortic valve sclerosis without stenosis, no apparent pulmonary hypertension. Received IV furosemide with brisk diuresis. Creatine natali with diuresis. Titration of furosemide per Nephrology- furosemide being restarted today. No NICO or ARB due to CKD. CORONARY ARTERY DISEASE No chest pain. Cardiac markers negative. Continue aspirin, clopidogrel, metoprolol, statin. PAROXYSMAL ATRIAL FIB Continue digoxin and metoprolol. No anticoagulation due to history of GI bleeding. COPD Continue O2, bronchodilators. Pulmonary Medicine consulted. 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 Unable to find any documented sleep studies. Sleep study should be performed when possible. Check nocturnal oximetry prior to discharge. Probably needs CPAP or BiPAP at home, but may be unwilling. PULMONARY NODULES Noted on previous CT imaging as far back as 2011. PET scan 04/06/16: bilat pulmonary granulomata bilat noncalcified pulmonary nodules, no appreciable FDG activity CT 05/27/17- stable findings compared to 2012. DIABETES MELLITUS TYPE 2 Well-controlled. Hemoglobin A1c 7.2 in clinic last month. FBS = 155. Continue Lantus/NovoLog per protocol. CKD IV + ACUTE KIDNEY INJURY Baseline serum creatinine 3.5. Serum creatinine 3.68 upon admission. Nephrology consulted. Creatinine has risen with diuresis. Serum creatinine today = 3.53. Titration of furosemide per Nephrology. Avoid potential nephrotoxins when able. Follow. HYPERTENSION Continue metoprolol succinate Follow and titrate Rx. BPH Wallace inserted by Urology. Discontinue Wallace today. Straight caths PRN. Continue finasteride and tamsulosin. HEMATURIA Gross hematuria noted after Wallace catheter insertion. May eventually need cystoscopy. GENERAL DEBILITATION PT / OT evals. VTE PROPHYLAXIS SQ heparin. Ambulate as able. DISPOSITION To be determined. Probably needs skilled care or rehab, but reluctant. PT / OT evals. Case Management following. Family Medicine follow-up with and Dr. Kam Dickey. . Consultants: Pulmonary Cardiology Nephrology Urology . Procedures: Cardiac monitoring Intravenous medications CT abdomen and pelvis CT chest Venous duplex lower extremities Echocardiogram PT OT . Current Inpatient Medications: Current Inpatient Medications Medications (Trade) Dose Ordered Sig/Ronak Route Start Time Stop Time Status Last Admin Dose Admin Heparin Sodium (Porcine) (Heparin Sq 5000 Unit/0.5ml) 5,000 unit Q8 SQ 05/24/17 22:00 06/23/17 13:59 05/29/17 12:51 5,000 UNIT Acetaminophen (Tylenol Tab) 650 mg Q4H PRN PO 05/24/17 13:15 06/23/17 13:14 05/27/17 22:55 650 MG Ondansetron HCl (Zofran Inj) 4 mg Q6H PRN IV 05/24/17 13:15 06/23/17 13:14 Nitroglycerin (Nitrostat Tab) 0.4 mg UD PRN SL 05/24/17 13:15 06/23/17 13:14 Insulin Aspart (novoLOG ASPART) SLIDING SCALE If C... ACHS SC 05/24/17 16:15 06/23/17 16:14 05/29/17 17:18 4 UNITS Glucose (Glucose 40% Gel) 15-30 GRAMS 15 GRAMS... UD PRN PO 05/24/17 14:30 06/23/17 14:29 Glucose (Glucose Chew Tab) 4-8 Tablets 4 Tabl... UD PRN PO 05/24/17 14:30 06/23/17 14:29 Dextrose (Dextrose 50% 50ML Syringe) 25-50ML OF 50% DW IV FOR... UD PRN IV 05/24/17 14:30 06/23/17 14:29 Glucagon (Glucagon Inj) 1 mg UD PRN SQ 05/24/17 14:30 06/23/17 14:29 Aspirin (Ecotrin Tab) 81 mg QAM PO 05/25/17 09:00 06/24/17 08:59 05/29/17 08:05 81 MG Clopidogrel Bisulfate (plAVix TAB) 75 mg QAM PO 05/25/17 09:00 06/24/17 08:59 05/29/17 08:05 75 MG Digoxin (Lanoxin Tab) 0.125 mg MoFr@1600 PO 05/26/17 16:00 06/25/17 15:59 05/29/17 17:18 0.125 MG Finasteride (Proscar Tab) 5 mg HS PO 05/24/17 21:00 06/23/17 20:59 05/28/17 21:07 5 MG Fish Oil ([place]-3 (Purified Fish Oil) Cap) 1 gm HS PO 05/24/17 21:00 06/23/17 20:59 05/28/17 21:06 1 GM Gabapentin (Neurontin Cap) 300 mg HS PO 05/24/17 21:00 06/23/17 20:59 05/28/17 21:06 300 MG Metoprolol Succinate (Toprol Xl Tab) 100 mg BID PO 05/24/17 21:00 06/23/17 20:59 05/29/17 08:05 100 MG Simvastatin (Zocor Tab) 40 mg QPM PO 05/24/17 21:00 06/23/17 20:59 05/28/17 21:06 40 MG Tamsulosin HCl (Flomax Cap) 0.4 mg HS PO 05/24/17 21:00 06/23/17 20:59 05/28/17 21:06 0.4 MG Albuterol/ Ipratropium (Duoneb) 3 ml QIDR INH 05/24/17 20:00 06/23/17 19:59 05/29/17 18:59 3 ML Tiotropium [place] (Spiriva Handihaler Inhaler) 1 puff QAM INH 05/27/17 09:00 06/26/17 08:59 05/29/17 08:04 1 PUFF Salmeterol Xinafoate/ Fluticasone (Advair Diskus 500/50 Inh) 1 puff BID INH 05/26/17 21:00 06/25/17 20:59 05/29/17 08:04 1 PUFF Amoxicillin (Amoxil Cap) 500 mg TID PO 05/28/17 14:00 06/02/17 13:59 05/29/17 12:48 500 MG Insulin Glargine (Lantus Solostar Pen) BSG LANTUS SQ < ... BID SC 05/28/17 21:00 06/27/17 20:59 05/29/17 08:13 15 UNITS Furosemide (Lasix Tab) 60 mg BID17 PO 05/29/17 17:00 06/28/17 16:59 05/29/17 17:19 60 MG Isosorbide Dinitrate (Isordil Tab) 5 mg TID@0700,1200,1700 PO 05/29/17 12:00 06/28/17 11:59 05/29/17 17:19 5 MG Miconazole Nitrate (Desenex Powder) 1 appln BID PRN EXT 05/29/17 21:00 06/28/17 20:59
[2017-05-29] MEDS: OMEGA-3 (PURIFIED FISH OIL) 1 GM CAP PO SCH (21:40)
[2017-05-29] MEDS: SIMVASTATIN 40 MG TAB PO SCH (21:40)
[2017-05-29] MEDS: FINASTERIDE 5 MG TAB PO SCH (21:40)
[2017-05-29] MEDS: TAMSULOSIN HCL 0.4 MG CAP PO SCH (21:40)
[2017-05-29] MEDS: GABAPENTIN 300 MG CAP PO SCH (21:49)
[2017-05-30] VITALS (15 sets, daily range): BP systolic 125–158; BP diastolic 56–90; PULSE 66–78; TEMP 36.4–37; O2SAT 90–98
[2017-05-30] MEDS: ACETAMINOPHEN 325 MG TAB PO PRN (04:39)
[2017-05-30] MEDS: ISOSORBIDE DINITRATE 5 MG TAB PO SCH ×3 (05:51→16:09)
[2017-05-30] MEDS: HEPARIN SOD 5000 UNIT/0.5 ML CARP SQ SCH ×3 (05:53→21:13)
[2017-05-30] MEDS: ALBUT/IPRATROP 3MG/0.5MG NEB 3 ML VIAL INH SCH ×4 (06:50→19:10)
[2017-05-30 07:36] LABS: BUN/CREATININE RATIO 21.3 (10-20); CALCIUM 8.4 mg/dl (8.5-10.1); CREATININE 3.24 mg/dl (0.60-1.40); POTASSIUM 3.9 mmol/L (3.5-5.1)
[2017-05-30] MEDS: INSULIN ASPART 100 UNITS/ML 3 ML PEN SC SCH ×4 (07:39→21:00)
[2017-05-30] MEDS: INSULIN GLARGINE SOLOSTAR 100 UNITS/ML 3 ML PEN SC SCH ×2 (07:39→21:12)
[2017-05-30] MEDS: CLOPIDOGREL BISULFATE 75 MG TAB PO SCH (07:40)
[2017-05-30] MEDS: METOPROLOL SUCC 50MG EXT REL TAB PO SCH ×2 (07:40→20:26)
[2017-05-30] MEDS: AMOXICILLIN 500 MG CAP PO SCH ×3 (07:40→20:27)
[2017-05-30] MEDS: ASPIRIN 81 MG ECTAB PO SCH (07:40)
[2017-05-30] MEDS: FUROSEMIDE 40 MG TAB PO SCH ×2 (07:41→16:09)
[2017-05-30] MEDS: FLUTICASONE/SALMETEROL (ADVAIR) 500/50 INH 14 PUFF INH SCH ×2 (07:41→20:25)
[2017-05-30] MEDS: TIOTROPIUM BROMIDE 5 PUFF/90 MCG INH INH SCH (07:42)
--- NOTE | 2017-05-30 08:42 | Nephrology Progress Note ---
Nephrology Progress Note Date of Service: May 30, 2017. Subjective 86 yo male with ckd stage 4 with baseline creatinine in the 3s who presented with sob and diuresed appropriately. pt says he feels better. still though with significant cardiac and pulmonary issues. had chambers removed last night per patient request and has not urinated since then. encouraged pt to have chambers placed back, pt would like to walk around but needs the oxygen to help him walk. Objective Date Time Temp Pulse Resp B/P (MAP) Pulse Ox O2 Delivery O2 Flow Rate FiO2 05/30/17 08:00 Nasal Cannula 3.0 05/30/17 07:39 37.0 70 20 129/79 (96) 92 Oxymask 5.0 05/30/17 06:51 71 16 98 Mask 7.0 05/30/17 04:00 Oxymask 5.0 05/30/17 03:54 36.9 75 20 132/77 (95) 96 Oxymask 6.0 05/30/17 00:19 36.5 66 19 134/73 (93) 95 Oxymask 6.0 05/30/17 00:00 Oxymask 5.0 05/29/17 20:00 Oxymask 5.0 05/29/17 19:32 36.9 75 20 145/75 (98) 98 Nebulizer 05/29/17 18:59 77 16 91 Mask 5.0 05/29/17 17:18 74 05/29/17 16:05 92 Nasal Cannula 4.0 Oxymask 05/29/17 15:27 36.4 67 20 126/73 (90) 91 Oxymask 3.0 05/29/17 15:20 83 16 82 Mask 3.0 05/29/17 12:14 96 Nasal Cannula 3.0 05/29/17 11:18 36.8 69 14 151/83 (105) 96 3.0 05/29/17 11:07 68 16 96 Nasal Cannula 2.0 05/29/17 11:00 95 80 Physical Exam: General-aaox3 Eyes-no scleral icterus ENT-mmm Neck-supple Lungs-decreased breath sounds at bases Heart-rrr Abdomen-bs+ s/nt/nd Extremities-mild edema Neuro-nonfocal Current Inpatient Medications Medications (Trade) Dose Ordered Sig/Ronak Route Start Time Stop Time Status Last Admin Dose Admin Heparin Sodium (Porcine) (Heparin Sq 5000 Unit/0.5ml) 5,000 unit Q8 SQ 05/24/17 22:00 06/23/17 13:59 05/30/17 05:53 5,000 UNIT Acetaminophen (Tylenol Tab) 650 mg Q4H PRN PO 05/24/17 13:15 06/23/17 13:14 05/30/17 04:39 650 MG Ondansetron HCl (Zofran Inj) 4 mg Q6H PRN IV 05/24/17 13:15 06/23/17 13:14 Nitroglycerin (Nitrostat Tab) 0.4 mg UD PRN SL 05/24/17 13:15 06/23/17 13:14 Insulin Aspart (novoLOG ASPART) SLIDING SCALE If C... ACHS SC 05/24/17 16:15 06/23/17 16:14 05/30/17 07:39 3 UNITS Glucose (Glucose 40% Gel) 15-30 GRAMS 15 GRAMS... UD PRN PO 05/24/17 14:30 06/23/17 14:29 Glucose (Glucose Chew Tab) 4-8 Tablets 4 Tabl... UD PRN PO 05/24/17 14:30 06/23/17 14:29 Dextrose (Dextrose 50% 50ML Syringe) 25-50ML OF 50% DW IV FOR... UD PRN IV 05/24/17 14:30 06/23/17 14:29 Glucagon (Glucagon Inj) 1 mg UD PRN SQ 05/24/17 14:30 06/23/17 14:29 Aspirin (Ecotrin Tab) 81 mg QAM PO 05/25/17 09:00 06/24/17 08:59 05/30/17 07:40 81 MG Clopidogrel Bisulfate (plAVix TAB) 75 mg QAM PO 05/25/17 09:00 06/24/17 08:59 05/30/17 07:40 75 MG Digoxin (Lanoxin Tab) 0.125 mg MoFr@1600 PO 05/26/17 16:00 06/25/17 15:59 05/29/17 17:18 0.125 MG Finasteride (Proscar Tab) 5 mg HS PO 05/24/17 21:00 06/23/17 20:59 05/29/17 21:40 5 MG Fish Oil ([place]-3 (Purified Fish Oil) Cap) 1 gm HS PO 05/24/17 21:00 06/23/17 20:59 05/29/17 21:40 1 GM Gabapentin (Neurontin Cap) 300 mg HS PO 05/24/17 21:00 06/23/17 20:59 05/29/17 21:49 300 MG Metoprolol Succinate (Toprol Xl Tab) 100 mg BID PO 05/24/17 21:00 06/23/17 20:59 05/30/17 07:40 100 MG Simvastatin (Zocor Tab) 40 mg QPM PO 05/24/17 21:00 06/23/17 20:59 05/29/17 21:40 40 MG Tamsulosin HCl (Flomax Cap) 0.4 mg HS PO 05/24/17 21:00 06/23/17 20:59 05/29/17 21:40 0.4 MG Albuterol/ Ipratropium (Duoneb) 3 ml QIDR INH 05/24/17 20:00 06/23/17 19:59 05/30/17 06:50 3 ML Tiotropium [place] (Spiriva Handihaler Inhaler) 1 puff QAM INH 05/27/17 09:00 06/26/17 08:59 05/30/17 07:42 1 PUFF Salmeterol Xinafoate/ Fluticasone (Advair Diskus 500/50 Inh) 1 puff BID INH 05/26/17 21:00 06/25/17 20:59 05/30/17 07:41 1 PUFF Amoxicillin (Amoxil Cap) 500 mg TID PO 05/28/17 14:00 06/02/17 13:59 05/30/17 07:40 500 MG Insulin Glargine (Lantus Solostar Pen) BSG LANTUS SQ < ... BID SC 05/28/17 21:00 06/27/17 20:59 05/30/17 07:39 10 UNITS Furosemide (Lasix Tab) 60 mg BID17 PO 05/29/17 17:00 06/28/17 16:59 05/30/17 07:41 60 MG Isosorbide Dinitrate (Isordil Tab) 5 mg TID@0700,1200,1700 PO 05/29/17 12:00 06/28/17 11:59 05/30/17 05:51 5 MG Miconazole Nitrate (Desenex Powder) 1 appln BID PRN EXT 05/29/17 21:00 06/28/17 20:59 Last 24 Hours Test 05/29/17 11:25 05/29/17 12:33 05/29/17 16:14 05/29/17 20:14 Bedside Glucose 206 mg/dl 167 mg/dl 206 mg/dl Arterial Blood pH 7.34 Arterial Blood Partial Pressure CO2 56 mmHg Arterial Blood Partial Pressure O2 48 mm/Hg Arterial Blood HCO3 30 mmol/L Arterial Blood Oxygen Saturation 79.9 % Arterial Blood Base Excess 3.0 mEq/L Arterial Blood Gas Delivery POS Jay Test 3L Test 05/30/17 06:46 05/30/17 07:14 Sodium Level 137 mmol/L Potassium Level 3.9 mmol/L Chloride Level 100 mmol/L Carbon Dioxide Level 31 mmol/L Anion Gap 6.0 mmol/L Blood Urea Nitrogen 69 mg/dl Creatinine 3.24 mg/dl Est Creatinine Clear Calc Drug Dose 23.6 ml/min Estimated GFR () 19.3 Estimated GFR (Non- 16.6 BUN/Creatinine Ratio 21.3 Random Glucose 134 mg/dl Calcium Level 8.4 mg/dl Bedside Glucose 138 mg/dl Assessment & Plan ckd stage 7-[id number]-creatinine peaked at 4 and has trended down to 3.24-on lasix now. do not feel his hypoxia is completely fluid related. trying to optimize heart and lungs with appropriate diuresis while still balancing creatinine. pt with bph on flomax and having issues with urination without chambers. likely will need chambers replaced back in, however pt not enthusiastic about the idea. pt trying to walk around to help him urinate.
--- NOTE | 2017-05-30 10:20 | PULMONARY PROGRESS NOTE ---
DATE: 05/30/2017 TIME: 09:45 a.m. SUBJECTIVE: The patient is not a good historian. I found him sitting on the side of his bed asleep. He did awaken fairly readily. The patient refused his BiPAP last night. He acknowledges that he is often sleepy during the day and does not sleep well at night. He denies shortness of breath. He denies a cough. OBJECTIVE: GENERAL: The patient appeared comfortable at rest. VITAL SIGNS: Temperature is 37 degrees. HEENT: The patient's speech was a bit slow. He has coarse features. HEART: Rate was 70 beats per minute. The blood pressure is 129/79. LUNGS: Auscultation of the lung parks revealed diffusely diminished breath sounds. No active wheezing was heard. Saturation was 95% on 3 liter nasal cannula. EXTREMITIES: Revealed trace edema. His legs look like there may have been much more edematous in the recent past. Review of the intake and output for yesterday showed a positive balance of 890. On May 25 and , he had significant diuresis of 8000 mL more output and input. The patient has difficulty urinating. He has blood on his count, which apparently is from blood leaking from his penis. The patient had an arterial blood gas done yesterday. This showed a pH of 7.34 with a pCO2 of 56 and a pO2 of 48 done on 3-liter nasal cannula. The pCO2 was lower than it had been previously on the when it had been 78. His pH had also improved from 7.25 up to 7.34. Electrolytes today show sodium 137, potassium 3.9, chloride 100, and bicarbonate 31. The BUN is 69 with a creatinine of 3.24. IMPRESSIONS: 1. Respiratory failure -- acute on chronic with hypoxia and hypercarbia. 2. Chronic obstructive pulmonary disease. 3. Cannot exclude obstructive sleep apnea. 4. Obesity. COMMENTS AND RECOMMENDATIONS: The patient is having urinary difficulties. The tiotropium should be stopped. This can create urinary retention in man with prostate problems. The patient would appear to need to have assisted living of some type. It appears he cannot or should not take care of himself alone. I do not think there is much likelihood that he will wear BiPAP even with encouragement. I would try to keep his oxygen saturations between 88%-92% in order to stimulate ventilatory drive as much as possible. We will see the patient again if requested.
--- NOTE | 2017-05-30 11:02 | Cardiology Follow-Up ---
Subjective General Date of Service: May 30, 2017. Chief Complaint: CHF Pt evaluation today including: conversation w/ patient, physical exam, chart review, lab review, review of studies, review of inpatient medication list History of Present Illness Patient seen and examined Wallace catheter reinserted. Denies chest pain. Dyspnea is at baseline. He denies palpitations. Telemetry: Sinus at 72 bpm currently. Ectopy in singles and couplets only. No atrial fibrillation. No significant pauses. Allergies Coded Allergies: Iodine (Verified Allergy, Mild, HIVES, 05/24/17) Sulfa Antibiotics (Verified Allergy, Unknown, ENTERED SULFA- UNKNOWN, 05/24/17) Social History Smoking Status: Former Smoker Hx Tobacco Use In Past Year?: No Hx Alcohol Use - Type And Amou: No Hx Substance Use - Type And Am: No Problem List Medical Problems: (1) ARF (acute renal failure) Status: Acute (2) Chronic hypoxemic respiratory failure Status: Chronic (3) Diverticulitis Status: Acute (4) Hyperglycemia Status: Acute (5) Lower GI bleed Status: Acute (6) Renal failure Status: Acute Review of Systems Respiratory: + shortness of breath, + dyspnea on exertion, No cough, No wheezing, No dyspnea at rest, No hemoptysis Cardiac: + edema, No chest pain, No orthopnea, No PND, No claudication Physical Exam Vital Signs Last Vital Signs Documentation Date Time Temp Pulse Resp B/P (MAP) Pulse Ox O2 Delivery O2 Flow Rate FiO2 05/30/17 08:00 Nasal Cannula 3.0 05/30/17 07:39 37.0 70 20 129/79 (96) 92 05/29/17 08:31 Physical Exam Constitutional: General Apperance: obese Level of Distress: NAD, acutely ill, chronically ill Psychiatric: Mental Status: active & alert Orientation: to time, to place, to person Head: atraumatic Eyes: Pupils: PERRLA Neck: supple Lungs: Respiratory effort: no dyspnea Auscultation: no wheezing, no rales/crackles, no rhonchi, deminished air movement, decreased breath sounds Cardiovascular: Heart Auscultation: RRR, normal S1, normal S2, no murmurs Abdomen: Bowel Sounds: normal Inspection & Palpation: soft, non-distended Extremities: edema (mild pretibial edema) Neurologic: Gait & Station: pertinent finding (no focal motor deficit) Cranial Nerves: grossly intact Assessment and Plan Assessment and Plan Admission with acute on chronic multifactorial respiratory failure with hypoxia and hypercapnia, acute on chronic systolic heart failure exacerbation, biventricular, cardiorenal syndrome. Acute on chronic renal insufficiency. Creatinine improved. Paroxysmal atrial fibrillation. Currently in sinus rhythm Chronic coronary artery disease Severe oxygen dependent COPD History of hyperkalemia Dyslipidemia Hypertension RECOMMENDATIONS/PLAN: As prescribed. Increase activity as tolerated. Will arrange outpatient cardiology follow-up with Mrs. Shaun PA-C Cardiology attending physician: Patient seen and examined at the bedside. Wallace catheter re-inseted this AM. Refusing to wear Bipap. Answers questions appropriately. Reports feeling tired. Offers no other complaints. PE: VSS. GEN: NAD, chronically ill. Heart: Regular, normal S1, S2, no murmur. Lungs: Diminished breath sounds bilateral. No rales, rhonchi, wheeze. Ext: 1+ pedal edema. A/P: Agree with above PAC history, physical exam, assessment and plan. Continue lasix at reduced dose (60mg BID). Follow renal function and electrolytes closely. Encouraged compliance with BiPAP. Riky Newby DO, [facility] Laboratory Results Last 24 Hours Test 05/29/17 11:25 05/29/17 12:33 05/29/17 16:14 05/29/17 20:14 Bedside Glucose 206 mg/dl 167 mg/dl 206 mg/dl Arterial Blood pH 7.34 Arterial Blood Partial Pressure CO2 56 mmHg Arterial Blood Partial Pressure O2 48 mm/Hg Arterial Blood HCO3 30 mmol/L Arterial Blood Oxygen Saturation 79.9 % Arterial Blood Base Excess 3.0 mEq/L Arterial Blood Gas Delivery POS Jay Test 3L Test 05/30/17 06:46 05/30/17 07:14 Sodium Level 137 mmol/L Potassium Level 3.9 mmol/L Chloride Level 100 mmol/L Carbon Dioxide Level 31 mmol/L Anion Gap 6.0 mmol/L Blood Urea Nitrogen 69 mg/dl Creatinine 3.24 mg/dl Est Creatinine Clear Calc Drug Dose 23.6 ml/min Estimated GFR () 19.3 Estimated GFR (Non- 16.6 BUN/Creatinine Ratio 21.3 Random Glucose 134 mg/dl Calcium Level 8.4 mg/dl Bedside Glucose 138 mg/dl
--- NOTE | 2017-05-30 12:59 | Progress Note ---
Internal Med Progress Note Date of Service: May 30, 2017. Provider Documentation: SUBJECTIVE: The patient was seen and examined Remains stable but did not pass any urine since last night Required insertion of Wallace Generally weak and lethargic OBJECTIVE: Vital Signs-as noted below Exam: General-no distress at rest Eyes-Normal ENT-normal Neck-supple Lungs-decreased breath sound bilaterally NO crackles Heart-Irregular,no murmur appreciated Abdomen-Benign,distended,difficult to palpate for any mass, Extremities-Chronic Edema bilaterally Neuro-AAOx3 Lab data as noted below. ASSESSMENT & PLAN: ACUTE ON CHRONIC HYPOXIC, HYPERCAPNIC RESPIRATORY FAILURE Chronic hypoxic respiratory failure on home O2 due to COPD. Complicated by CHF,Sleep Apnea and interstitial lung disease Titrate supplemental oxygen as necessary. BiPAP as necessary for ventilatory support- needs encouragement. On Bronchodilators and Steroid inhalers Appreciate Pulmonary Input Advised to use BIPAP ACUTE ON CHRONIC CHF History of left ventricular systolic heart failure with EF of 35-40 percent, left ventricular diastolic heart failure, probable right-sided heart failure. Echocardiogram demonstrated mild concentric LVH, inferior and inferolateral wall motion abnormalities, overall LVEF 35 -40%, mild tricuspid regurgitation, grade II diastolic dysfunction, mild aortic valve sclerosis without stenosis, no apparent pulmonary hypertension. Received IV furosemide Titration of furosemide per Nephrology- furosemide being restarted today. No NICO or ARB due to CKD. Remains stable CORONARY ARTERY DISEASE No chest pain. Cardiac markers negative. Continue aspirin, clopidogrel, metoprolol, statin. PAROXYSMAL ATRIAL FIB Continue digoxin and metoprolol. No anticoagulation due to history of GI bleeding. 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 Unable to find any documented sleep studies. Check nocturnal oximetry prior to discharge. Probably needs CPAP or BiPAP at home, but may be unwilling. OP Sleep study PULMONARY NODULES Noted on previous CT imaging as far back as 2011. PET scan 04/06/16: bilat pulmonary granulomata bilat noncalcified pulmonary nodules, no appreciable FDG activity CT 05/27/17- stable findings compared to 2012. DIABETES MELLITUS TYPE 2 Well-controlled. Hemoglobin A1c 7.2 in clinic last month. FBS = 155. Continue Lantus/NovoLog per protocol. CKD IV + ACUTE KIDNEY INJURY Baseline serum creatinine 3.5. Serum creatinine 3.68 upon admission. Nephrology consulted-appreciate Input Titration of furosemide per Nephrology. Avoid potential nephrotoxins when able. Creatinine stable HYPERTENSION Continue metoprolol succinate Follow and titrate Rx. BPH Wallace inserted by Urology. Wallace discontinued Requiring too much Straight caths PRN. Continue finasteride and tamsulosin. Will reinsert Wallace and OP Urology appointment HEMATURIA Gross hematuria noted after [place] catheter insertion. May eventually need cystoscopy. GENERAL DEBILITATION PT / OT evals. VTE PROPHYLAXIS SQ heparin. Ambulate as able. DISPOSITION To be determined. Probably needs skilled care or rehab, but reluctant. PT / OT evals. Case Management following. Family Medicine follow-up with and Dr. Kam Dickey. . Consultants: Pulmonary Cardiology Nephrology Urology . Procedures: Cardiac monitoring Intravenous medications CT abdomen and pelvis CT chest Venous duplex lower extremities Echocardiogram PT OT Vital Signs: Date Time Temp Pulse Resp B/P (MAP) Pulse Ox O2 Delivery O2 Flow Rate FiO2 05/30/17 12:00 Nasal Cannula 3.0 05/30/17 11:52 71 16 91 Mask 4.0 05/30/17 11:21 36.7 72 20 158/90 (112) 95 Nasal Cannula 2.0 05/30/17 10:42 Nasal Cannula 4.0 05/30/17 08:00 Nasal Cannula 3.0 05/30/17 07:39 37.0 70 20 129/79 (96) 92 Oxymask 5.0 05/30/17 06:51 71 16 98 Mask 7.0 05/30/17 04:00 Oxymask 5.0 05/30/17 03:54 36.9 75 20 132/77 (95) 96 Oxymask 6.0 05/30/17 00:19 36.5 66 19 134/73 (93) 95 Oxymask 6.0 05/30/17 00:00 Oxymask 5.0 05/29/17 20:00 Oxymask 5.0 05/29/17 19:32 36.9 75 20 145/75 (98) 98 Nebulizer 05/29/17 18:59 77 16 91 Mask 5.0 05/29/17 17:18 74 05/29/17 16:05 92 Nasal Cannula 4.0 Oxymask 05/29/17 15:27 36.4 67 20 126/73 (90) 91 Oxymask 3.0 05/29/17 15:20 83 16 82 Mask 3.0 Lab Results: Results Past 24 Hours Test 05/29/17 16:14 05/29/17 20:14 05/30/17 06:46 05/30/17 07:14 Range/Units Bedside Glucose 167 206 138 70-99 mg/dl Sodium Level 137 136-145 mmol/L Potassium Level 3.9 3.5-5.1 mmol/L Chloride Level 100 98-107 mmol/L Carbon Dioxide Level 31 21-32 mmol/L Anion Gap 6.0 3-11 mmol/L Blood Urea Nitrogen 69 7-18 mg/dl Creatinine 3.24 0.60-1.40 mg/dl Est Creatinine Clear Calc Drug Dose 23.6 ml/min Estimated GFR () 19.3 Estimated GFR (Non- 16.6 BUN/Creatinine Ratio 21.3 10-20 Random Glucose 134 70-99 mg/dl Calcium Level 8.4 8.5-10.1 mg/dl Test 05/30/17 11:02 Range/Units Bedside Glucose 204 70-99 mg/dl
[2017-05-30] MEDS: SIMVASTATIN 40 MG TAB PO SCH (20:26)
[2017-05-30] MEDS: GABAPENTIN 300 MG CAP PO SCH (20:26)
[2017-05-30] MEDS: TAMSULOSIN HCL 0.4 MG CAP PO SCH (20:27)
[2017-05-30] MEDS: OMEGA-3 (PURIFIED FISH OIL) 1 GM CAP PO SCH (20:27)
[2017-05-30] MEDS: FINASTERIDE 5 MG TAB PO SCH (20:28)
[2017-05-31] VITALS (12 sets, daily range): BP systolic 106–148; BP diastolic 55–75; PULSE 63–90; TEMP 36.7–37.4; O2SAT 87–97
[2017-05-31] MEDS: HEPARIN SOD 5000 UNIT/0.5 ML CARP SQ SCH ×3 (05:33→20:16)
[2017-05-31] MEDS: ISOSORBIDE DINITRATE 5 MG TAB PO SCH ×3 (05:37→17:26)
[2017-05-31 06:44] LABS: BUN/CREATININE RATIO 21.3 (10-20); CALCIUM 8.7 mg/dl (8.5-10.1); CREATININE 3.21 mg/dl (0.60-1.40)
[2017-05-31] MEDS: ALBUT/IPRATROP 3MG/0.5MG NEB 3 ML VIAL INH SCH ×4 (06:54→19:16)
[2017-05-31] MEDS: AMOXICILLIN 500 MG CAP PO SCH ×3 (09:12→20:13)
[2017-05-31] MEDS: FUROSEMIDE 40 MG TAB PO SCH ×2 (09:13→17:27)
[2017-05-31] MEDS: CLOPIDOGREL BISULFATE 75 MG TAB PO SCH (09:14)
[2017-05-31] MEDS: METOPROLOL SUCC 50MG EXT REL TAB PO SCH ×2 (09:15→20:14)
[2017-05-31] MEDS: ASPIRIN 81 MG ECTAB PO SCH (09:15)
[2017-05-31] MEDS: FLUTICASONE/SALMETEROL (ADVAIR) 500/50 INH 14 PUFF INH SCH ×2 (09:17→20:13)
--- NOTE | 2017-05-31 09:17 | Cardiology Follow-Up ---
Subjective General Date of Service: May 31, 2017. Chief Complaint: CHF Pt evaluation today including: conversation w/ patient, physical exam, chart review, lab review, review of studies, review of inpatient medication list History of Present Illness Patient seen and examined Denies chest pain. Dyspnea remains at baseline. Denies palpitations. Wallace catheter in place. Telemetry: Sinus at 82 bpm currently. Ventricular ectopy in singles, rare couplets. Asymptomatic SVT at 06:29:31. No overt atrial fibrillation. No significant pauses. Allergies Coded Allergies: Iodine (Verified Allergy, Mild, HIVES, 05/24/17) Sulfa Antibiotics (Verified Allergy, Unknown, ENTERED SULFA- UNKNOWN, 05/24/17) Social History Smoking Status: Former Smoker Hx Tobacco Use In Past Year?: No Hx Alcohol Use - Type And Amou: No Hx Substance Use - Type And Am: No Problem List Medical Problems: (1) ARF (acute renal failure) Status: Acute (2) Chronic hypoxemic respiratory failure Status: Chronic (3) Diverticulitis Status: Acute (4) Hyperglycemia Status: Acute (5) Lower GI bleed Status: Acute (6) Renal failure Status: Acute Review of Systems Respiratory: + shortness of breath, + dyspnea on exertion, No cough, No sputum , No wheezing, No dyspnea at rest, No hemoptysis Cardiac: + edema, No chest pain, No orthopnea, No PND, No claudication, No palpitations Physical Exam Vital Signs Last Vital Signs Documentation Date Time Temp Pulse Resp B/P (MAP) Pulse Ox O2 Delivery O2 Flow Rate FiO2 05/31/17 08:18 94 Nasal Cannula 3.0 05/31/17 07:37 37.4 78 16 132/67 (88) 05/29/17 08:31 Physical Exam Constitutional: General Apperance: obese Level of Distress: NAD, acutely ill, chronically ill Psychiatric: Mental Status: active & alert Orientation: to time, to place, to person Head: atraumatic Eyes: Pupils: PERRLA Neck: supple Lungs: Respiratory effort: no dyspnea Auscultation: no wheezing, no rales/crackles, no rhonchi, deminished air movement, decreased breath sounds Cardiovascular: Heart Auscultation: RRR, normal S1, normal S2, no murmurs Abdomen: Bowel Sounds: normal Inspection & Palpation: soft, non-distended Extremities: edema (mild pretibial edema) Neurologic: Gait & Station: pertinent finding (no focal motor deficit) Cranial Nerves: grossly intact Assessment and Plan Assessment and Plan Admission with acute on chronic multifactorial respiratory failure with hypoxia and hypercapnia, acute on chronic systolic heart failure exacerbation, biventricular, cardiorenal syndrome. Acute on chronic renal insufficiency. Creatinine improved. Paroxysmal atrial fibrillation. Sinus maintained. Risks of anticoagulation felt to be greater than benefits Chronic coronary artery disease Severe oxygen dependent COPD History of hyperkalemia Dyslipidemia Hypertension RECOMMENDATIONS/PLAN: As prescribed. Increase activity as tolerated. Please call with any questions or concerns. Outpatient cardiology follow-up with Mrs. DunnVIOLET Cardiology attending physician: Patient seen and examined at the bedside. No changes overnight. Continues to refuse BiPAP. Answers questions appropriately. Reports feeling tired. Offers no other complaints. PE: VSS. GEN: NAD, chronically ill. Heart: Regular, normal S1, S2, no murmur. Lungs: Diminished breath sounds bilateral. No rales, rhonchi, wheeze. Ext: 1+ pedal edema. A/P: Agree with above PAC history, physical exam, assessment and plan. Continue current medications as prescribed. Encouraged compliance with BiPAP. Will sign off at this time. Please call with questions. Riky Newby DO, [facility] Laboratory Results Last 24 Hours Test 05/30/17 11:02 05/30/17 16:23 05/30/17 20:38 05/31/17 05:24 Bedside Glucose 204 mg/dl 154 mg/dl 152 mg/dl Sodium Level 137 mmol/L Potassium Level 4.0 mmol/L Chloride Level 99 mmol/L Carbon Dioxide Level 30 mmol/L Anion Gap 8.0 mmol/L Blood Urea Nitrogen 69 mg/dl Creatinine 3.21 mg/dl Est Creatinine Clear Calc Drug Dose 23.7 ml/min Estimated GFR () 19.5 Estimated GFR (Non- 16.8 BUN/Creatinine Ratio 21.3 Random Glucose 137 mg/dl Calcium Level 8.7 mg/dl Test 05/31/17 06:58 Bedside Glucose 150 mg/dl
[2017-05-31] MEDS: INSULIN ASPART 100 UNITS/ML 3 ML PEN SC SCH ×4 (09:22→20:15)
[2017-05-31] MEDS: INSULIN GLARGINE SOLOSTAR 100 UNITS/ML 3 ML PEN SC SCH ×2 (09:23→20:15)
--- NOTE | 2017-05-31 16:01 | Progress Note ---
Internal Med Progress Note Date of Service: May 31, 2017. Provider Documentation: SUBJECTIVE: The patient was seen and examined Remains stable but did not pass any urine since last night Required insertion of Wallace Generally weak and lethargic Will need to go to short term Rehab -patient is agreeable OBJECTIVE: Vital Signs-as noted below Exam: General-no distress at rest Eyes-Normal ENT-normal Neck-supple Lungs-decreased breath sound bilaterally NO crackles Heart-Irregular,no murmur appreciated Abdomen-Benign,distended,difficult to palpate for any mass, Extremities-Chronic Edema bilaterally-improved Neuro-AAOx3 Lab data as noted below. ASSESSMENT & PLAN: ACUTE ON CHRONIC HYPOXIC, HYPERCAPNIC RESPIRATORY FAILURE Chronic hypoxic respiratory failure on home O2 due to COPD. Complicated by CHF,Sleep Apnea and interstitial lung disease Titrate supplemental oxygen as necessary. BiPAP as necessary for ventilatory support- needs encouragement. On Bronchodilators and Steroid inhalers Appreciate Pulmonary Input Advised to use BIPAP -not being using as advised ACUTE ON CHRONIC CHF History of left ventricular systolic heart failure with EF of 35-40 percent, left ventricular diastolic heart failure, probable right-sided heart failure. Echocardiogram demonstrated mild concentric LVH, inferior and inferolateral wall motion abnormalities, overall LVEF 35 -40%, mild tricuspid regurgitation, grade II diastolic dysfunction, mild aortic valve sclerosis without stenosis, no apparent pulmonary hypertension. Received IV furosemide Titration of furosemide per Nephrology- furosemide being restarted today. No NICO or ARB due to CKD. Remains stable Continue Lasix 60mg BID for now CORONARY ARTERY DISEASE No chest pain. Cardiac markers negative. Continue aspirin, clopidogrel, metoprolol, statin. PAROXYSMAL ATRIAL FIB Continue digoxin and metoprolol. No anticoagulation due to history of GI bleeding. Has had a short runs of VT this morning- 05/31/17 Rate remains controlled now No change of medications PROBABLE SLEEP APNEA / HYPOVENTILATION SYNDROME Continue BiPAP as needed/tolerated. Unable to find any documented sleep studies. Check nocturnal oximetry prior to discharge. Probably needs CPAP or BiPAP at home, but may be unwilling. OP Sleep study PULMONARY NODULES Noted on previous CT imaging as far back as 2011. PET scan 04/06/16: bilat pulmonary granulomata bilat noncalcified pulmonary nodules, no appreciable FDG activity CT 05/27/17- stable findings compared to 2011. DIABETES MELLITUS TYPE 2 Well-controlled. Hemoglobin A1c 7.2 in clinic last month. FBS = 155. Continue Lantus/NovoLog per protocol. CKD IV + ACUTE KIDNEY INJURY Baseline serum creatinine 3.5. Serum creatinine 3.68 upon admission. Nephrology consulted-appreciate Input Titration of furosemide per Nephrology. Avoid potential nephrotoxins when able. Creatinine stable HYPERTENSION Continue metoprolol succinate Follow and titrate Rx. BPH Wallace inserted by Urology. Wallace discontinued Requiring too much Straight caths PRN. Continue finasteride and tamsulosin. Will reinsert Wallace and OP Urology appointment HEMATURIA Gross hematuria noted after Wallace catheter insertion. May eventually need cystoscopy. Stopped GENERAL DEBILITATION PT / OT evals. VTE PROPHYLAXIS SQ heparin. Ambulate as able. DISPOSITION To be determined. Probably needs skilled care or rehab, but reluctant. PT / OT evals. Case Management following. Family Medicine follow-up with and Dr. Kam Dickey. . Consultants: Pulmonary Cardiology Nephrology Urology . Procedures: Cardiac monitoring Intravenous medications CT abdomen and pelvis CT chest Venous duplex lower extremities Echocardiogram PT OT Vital Signs: Date Time Temp Pulse Resp B/P (MAP) Pulse Ox O2 Delivery O2 Flow Rate FiO2 05/31/17 15:43 36.8 69 22 119/63 (81) 95 Nasal Cannula 3.0 05/31/17 15:39 84 16 93 Nasal Cannula 2.0 05/31/17 12:00 Nasal Cannula 2.0 05/31/17 11:33 36.7 82 15 148/75 (99) 93 Nasal Cannula 3.0 05/31/17 11:11 90 16 97 Nasal Cannula 3.0 05/31/17 08:18 94 Nasal Cannula 3.0 05/31/17 08:00 Nasal Cannula 2.0 05/31/17 07:37 37.4 78 16 132/67 (88) 94 Nasal Cannula 3.0 05/31/17 06:54 82 16 92 Nasal Cannula 3.0 05/31/17 04:00 90 Nasal Cannula 2.0 05/31/17 02:45 37.0 75 20 132/75 (94) 91 Nasal Cannula 2.0 05/30/17 23:59 90 Nasal Cannula 2.0 05/30/17 22:50 36.7 78 18 144/76 (98) 90 Nasal Cannula 2.0 05/30/17 20:01 36.6 71 19 125/56 (79) 96 Nasal Cannula 4.0 05/30/17 20:00 96 Nasal Cannula 4.0 05/30/17 19:10 73 16 90 Nasal Cannula 3.5 05/30/17 16:32 36.4 67 20 138/78 (98) 97 Nasal Cannula 2.0 05/30/17 16:00 Nasal Cannula 3.0 Lab Results: Results Past 24 Hours Test 05/30/17 16:23 05/30/17 20:38 05/31/17 05:24 05/31/17 06:58 Range/Units Bedside Glucose 154 152 150 70-99 mg/dl Sodium Level 137 136-145 mmol/L Potassium Level 4.0 3.5-5.1 mmol/L Chloride Level 99 98-107 mmol/L Carbon Dioxide Level 30 21-32 mmol/L Anion Gap 8.0 3-11 mmol/L Blood Urea Nitrogen 69 7-18 mg/dl Creatinine 3.21 0.60-1.40 mg/dl Est Creatinine Clear Calc Drug Dose 23.7 ml/min Estimated GFR () 19.5 Estimated GFR (Non- 16.8 BUN/Creatinine Ratio 21.3 10-20 Random Glucose 137 70-99 mg/dl Calcium Level 8.7 8.5-10.1 mg/dl Test 05/31/17 11:05 Range/Units Bedside Glucose 213 70-99 mg/dl
[2017-05-31] MEDS: FINASTERIDE 5 MG TAB PO SCH (20:13)
[2017-05-31] MEDS: GABAPENTIN 300 MG CAP PO SCH (20:13)
[2017-05-31] MEDS: OMEGA-3 (PURIFIED FISH OIL) 1 GM CAP PO SCH (20:13)
[2017-05-31] MEDS: SIMVASTATIN 40 MG TAB PO SCH (20:13)
[2017-05-31] MEDS: TAMSULOSIN HCL 0.4 MG CAP PO SCH (20:13)
[2017-06-01] VITALS (10 sets, daily range): BP systolic 116–152; BP diastolic 58–82; PULSE 53–76; TEMP 36.3–36.8; O2SAT 85–100
[2017-06-01] MEDS: ACETAMINOPHEN 325 MG TAB PO PRN (03:20)
[2017-06-01] MEDS: HEPARIN SOD 5000 UNIT/0.5 ML CARP SQ SCH ×3 (05:51→21:17)
[2017-06-01] MEDS: ALBUT/IPRATROP 3MG/0.5MG NEB 3 ML VIAL INH SCH ×4 (06:49→19:09)
[2017-06-01 06:51] LABS: BUN/CREATININE RATIO 20.4 (10-20); CALCIUM 8.9 mg/dl (8.5-10.1); CREATININE 3.23 mg/dl (0.60-1.40)
[2017-06-01] MEDS: INSULIN ASPART 100 UNITS/ML 3 ML PEN SC SCH ×4 (07:56→20:56)
[2017-06-01] MEDS: INSULIN GLARGINE SOLOSTAR 100 UNITS/ML 3 ML PEN SC SCH ×2 (07:57→21:17)
[2017-06-01] MEDS: METOPROLOL SUCC 50MG EXT REL TAB PO SCH ×2 (07:57→21:09)
[2017-06-01] MEDS: FLUTICASONE/SALMETEROL (ADVAIR) 500/50 INH 14 PUFF INH SCH ×2 (07:57→21:09)
[2017-06-01] MEDS: AMOXICILLIN 500 MG CAP PO SCH ×3 (07:57→21:09)
[2017-06-01] MEDS: GABAPENTIN 300 MG CAP PO SCH (07:58)
[2017-06-01] MEDS: ISOSORBIDE DINITRATE 5 MG TAB PO SCH ×3 (07:58→17:03)
[2017-06-01] MEDS: FUROSEMIDE 40 MG TAB PO SCH ×2 (07:58→17:03)
[2017-06-01] MEDS: ASPIRIN 81 MG ECTAB PO SCH (07:58)
[2017-06-01] MEDS: CLOPIDOGREL BISULFATE 75 MG TAB PO SCH (07:58)
--- NOTE | 2017-06-01 13:43 | Progress Note ---
Internal Med Progress Note Date of Service: Jun 01, 2017. Provider Documentation: SUBJECTIVE: The patient was seen and examined Required insertion of Wallace for the 2nd time -Does not want it- 06/01 Generally weak and lethargic Agitated this morning and wants to go home or to [facility] Does not care if he falls at home or not OBJECTIVE: Vital Signs-as noted below Exam: General-Moderate distress at rest Obese and non compliant Eyes-Normal ENT-normal Neck-supple Lungs-decreased breath sound bilaterally NO crackles Heart-Irregular,no murmur appreciated Abdomen-Benign,distended,difficult to palpate for any mass, Extremities-Chronic Edema bilaterally-improved Neuro-AAOx3 Lab data as noted below. ASSESSMENT & PLAN: ACUTE ON CHRONIC HYPOXIC, HYPERCAPNIC RESPIRATORY FAILURE Chronic hypoxic respiratory failure on home O2 due to COPD. Complicated by CHF,Sleep Apnea and interstitial lung disease Titrate supplemental oxygen as necessary. BiPAP as necessary for ventilatory support- needs encouragement. On Bronchodilators and Steroid inhalers Appreciate Pulmonary Input Advised to use BIPAP -not being using as advised Medically stable without much improvement of his general condition ACUTE ON CHRONIC CHF History of left ventricular systolic heart failure with EF of 35-40 percent, left ventricular diastolic heart failure, probable right-sided heart failure. Echocardiogram demonstrated mild concentric LVH, inferior and inferolateral wall motion abnormalities, overall LVEF 35 -40%, mild tricuspid regurgitation, grade II diastolic dysfunction, mild aortic valve sclerosis without stenosis, no apparent pulmonary hypertension. Received IV furosemide Titration of furosemide per Nephrology- furosemide being restarted today. No NICO or ARB due to CKD. Remains stable Continue Lasix 60mg BID for now Renal function remains stable ~3.5 Urinary Retention Was seen by Urology Required Wallace placement X2 Will D/C Wallace as per patient request May need to put it back CORONARY ARTERY DISEASE No chest pain. Cardiac markers negative. Continue aspirin, clopidogrel, metoprolol, statin. PAROXYSMAL ATRIAL FIB Continue digoxin and metoprolol. No anticoagulation due to history of GI bleeding. Has had a short runs of VT this morning- 05/31/17 Rate remains controlled now No change of medications PROBABLE SLEEP APNEA / HYPOVENTILATION SYNDROME Continue BiPAP as needed/tolerated. Unable to find any documented sleep studies. Check nocturnal oximetry prior to discharge. Probably needs CPAP or BiPAP at home, but may be unwilling and not been using it . OP Sleep study PULMONARY NODULES Noted on previous CT imaging as far back as 2011. PET scan 04/06/16: bilat pulmonary granulomata bilat noncalcified pulmonary nodules, no appreciable FDG activity CT 05/27/17- stable findings compared to 2012. DIABETES MELLITUS TYPE 2 Well-controlled. Hemoglobin A1c 7.2 in clinic last month. FBS = 155. Continue Lantus/NovoLog per protocol. CKD IV + ACUTE KIDNEY INJURY Baseline serum creatinine 3.5. Serum creatinine 3.68 upon admission. Nephrology consulted-appreciate Input Titration of furosemide per Nephrology. Avoid potential nephrotoxins when able. Creatinine stable HYPERTENSION Continue metoprolol succinate Follow and titrate Rx. BPH Wallace inserted by Urology. Wallace discontinued Requiring too much Straight caths PRN. Continue finasteride and tamsulosin. Will reinsert Wallace and OP Urology appointment HEMATURIA Gross hematuria noted after Wallace catheter insertion. May eventually need cystoscopy. Stopped GENERAL DEBILITATION PT / OT evals. VTE PROPHYLAXIS SQ heparin. Ambulate as able. DISPOSITION To be determined. Probably needs skilled care or rehab, but reluctant. PT / OT evals. Case Management following. Family Medicine follow-up with and Dr. Kam Dickey. . Consultants: Pulmonary Cardiology Nephrology Urology . Procedures: Cardiac monitoring Intravenous medications CT abdomen and pelvis CT chest Venous duplex lower extremities Echocardiogram PT OT Awaiting placement ,adamant to go home Vital Signs: Date Time Temp Pulse Resp B/P (MAP) Pulse Ox O2 Delivery O2 Flow Rate FiO2 06/01/17 12:00 Nasal Cannula 2.0 06/01/17 11:12 64 16 98 Nasal Cannula 3.0 06/01/17 11:06 36.8 68 20 143/74 (97) 99 3.0 06/01/17 08:14 36.7 74 18 143/82 (102) 94 06/01/17 08:00 Nasal Cannula 2.0 06/01/17 06:51 76 16 85 Nasal Cannula 3.0 06/01/17 04:00 Nasal Cannula 3.0 06/01/17 03:48 36.7 73 18 116/58 (77) 91 Nasal Cannula 3.0 06/01/17 00:00 Nasal Cannula 3.0 05/31/17 23:57 37.2 71 18 121/68 (85) 92 Nasal Cannula 3.0 05/31/17 20:00 Nasal Cannula 2.0 05/31/17 19:26 36.9 63 20 106/55 (72) 95 Nasal Cannula 3.0 05/31/17 19:15 89 16 87 Nasal Cannula 2.0 05/31/17 16:00 Nasal Cannula 2.0 05/31/17 15:43 36.8 69 22 119/63 (81) 95 Nasal Cannula 3.0 05/31/17 15:39 84 16 93 Nasal Cannula 2.0 Lab Results: Results Past 24 Hours Test 05/31/17 16:04 05/31/17 19:42 06/01/17 05:44 06/01/17 06:41 Range/Units Bedside Glucose 143 198 157 70-99 mg/dl Sodium Level 135 136-145 mmol/L Potassium Level 4.0 3.5-5.1 mmol/L Chloride Level 98 98-107 mmol/L Carbon Dioxide Level 29 21-32 mmol/L Anion Gap 8.0 3-11 mmol/L Blood Urea Nitrogen 66 7-18 mg/dl Creatinine 3.23 0.60-1.40 mg/dl Est Creatinine Clear Calc Drug Dose 23.5 ml/min Estimated GFR () 19.3 Estimated GFR (Non- 16.7 BUN/Creatinine Ratio 20.4 10-20 Random Glucose 150 70-99 mg/dl Calcium Level 8.9 8.5-10.1 mg/dl Test 06/01/17 11:13 Range/Units Bedside Glucose 226 70-99 mg/dl
[2017-06-01] MEDS: TAMSULOSIN HCL 0.4 MG CAP PO SCH (21:09)
[2017-06-01] MEDS: OMEGA-3 (PURIFIED FISH OIL) 1 GM CAP PO SCH (21:09)
[2017-06-01] MEDS: FINASTERIDE 5 MG TAB PO SCH (21:09)
[2017-06-01] MEDS: SIMVASTATIN 40 MG TAB PO SCH (21:09)
[2017-06-02] VITALS (9 sets, daily range): BP systolic 110–136; BP diastolic 52–70; PULSE 63–78; TEMP 36.7–37.4; O2SAT 90–97
[2017-06-02] MEDS: ACETAMINOPHEN 325 MG TAB PO PRN ×2 (00:32→05:57)
[2017-06-02] MEDS: HEPARIN SOD 5000 UNIT/0.5 ML CARP SQ SCH ×3 (06:00→21:00)
[2017-06-02 06:35] LABS: BUN/CREATININE RATIO 20.4 (10-20); CALCIUM 8.7 mg/dl (8.5-10.1); CREATININE 3.28 mg/dl (0.60-1.40); MAGNESIUM 2.5 mg/dl (1.8-2.4)
[2017-06-02 06:36] LABS: PHOSPHORUS 5.2 mg/dl (2.5-4.9)
[2017-06-02] MEDS: ALBUT/IPRATROP 3MG/0.5MG NEB 3 ML VIAL INH SCH ×4 (06:50→20:03)
[2017-06-02] MEDS: INSULIN ASPART 100 UNITS/ML 3 ML PEN SC SCH ×4 (07:52→20:51)
[2017-06-02] MEDS: INSULIN GLARGINE SOLOSTAR 100 UNITS/ML 3 ML PEN SC SCH ×2 (07:53→20:50)
[2017-06-02] MEDS: CLOPIDOGREL BISULFATE 75 MG TAB PO SCH (07:56)
[2017-06-02] MEDS: ASPIRIN 81 MG ECTAB PO SCH (07:56)
[2017-06-02] MEDS: METOPROLOL SUCC 50MG EXT REL TAB PO SCH ×2 (07:57→20:54)
[2017-06-02] MEDS: ISOSORBIDE DINITRATE 5 MG TAB PO SCH ×3 (07:57→16:47)
[2017-06-02] MEDS: FUROSEMIDE 40 MG TAB PO SCH ×2 (07:58→16:49)
[2017-06-02] MEDS: AMOXICILLIN 500 MG CAP PO SCH (07:59)
[2017-06-02] MEDS: FLUTICASONE/SALMETEROL (ADVAIR) 500/50 INH 14 PUFF INH SCH ×2 (09:08→20:52)
[2017-06-02] MEDS: DIGOXIN 0.125 MG TAB PO SCH (16:44)
--- NOTE | 2017-06-02 17:27 | Progress Note ---
Internal Med Progress Note Date of Service: Jun 02, 2017. Provider Documentation: SUBJECTIVE: The patient was seen and examined Required insertion of Wallace for the 2nd time -Does not want it- 06/01 Generally weak and lethargic Agitated this morning and wants to go home or to [facility] Does not care if he falls at home or not Agreed to go to the Rehab Required insertion of Wallace again OBJECTIVE: Vital Signs-as noted below Exam: General-Moderate distress at rest Obese and non compliant Eyes-Normal ENT-normal Neck-supple Lungs-decreased breath sound bilaterally NO crackles Heart-Irregular,no murmur appreciated Abdomen-Benign,distended,difficult to palpate for any mass, Extremities-Chronic Edema bilaterally-improved Neuro-AAOx3 Lab data as noted below. ASSESSMENT & PLAN: ACUTE ON CHRONIC HYPOXIC, HYPERCAPNIC RESPIRATORY FAILURE Chronic hypoxic respiratory failure on home O2 due to COPD. Complicated by CHF,Sleep Apnea and interstitial lung disease Titrate supplemental oxygen as necessary. BiPAP as necessary for ventilatory support- needs encouragement. On Bronchodilators and Steroid inhalers Appreciate Pulmonary Input Advised to use BIPAP -not being using as advised Medically stable without much improvement of his general condition Clinically much better Continue with physical therapy Likely to go to [facility] ACUTE ON CHRONIC CHF History of left ventricular systolic heart failure with EF of 35-40 percent, left ventricular diastolic heart failure, probable right-sided heart failure. Echocardiogram demonstrated mild concentric LVH, inferior and inferolateral wall motion abnormalities, overall LVEF 35 -40%, mild tricuspid regurgitation, grade II diastolic dysfunction, mild aortic valve sclerosis without stenosis, no apparent pulmonary hypertension. Received IV furosemide Titration of furosemide per Nephrology- furosemide being restarted today. No NICO or ARB due to CKD. Remains stable Continue Lasix 60mg BID for now Renal function remains stable ~3.5 Minimal SOB at rest Urinary Retention Was seen by Urology Required Wallace placement X2 Will D/C Wallace as per patient request May need to put it back Requiring Wallace -will keep in for ~7 days CORONARY ARTERY DISEASE No chest pain. Cardiac markers negative. Continue aspirin, clopidogrel, metoprolol, statin. PAROXYSMAL ATRIAL FIB Continue digoxin and metoprolol. No anticoagulation due to history of GI bleeding. Has had a short runs of VT this morning- 05/31/17 Rate remains controlled now No change of medications Rate is controlled PROBABLE SLEEP APNEA / HYPOVENTILATION SYNDROME Continue BiPAP as needed/tolerated. Unable to find any documented sleep studies. Check nocturnal oximetry prior to discharge. Probably needs CPAP or BiPAP at home, but may be unwilling and not been using it . OP Sleep study Has not been keeping BIPAP at night PULMONARY NODULES Noted on previous CT imaging as far back as 2011. PET scan 04/06/16: bilat pulmonary granulomata bilat noncalcified pulmonary nodules, no appreciable FDG activity CT 05/27/17- stable findings compared to 2011. DIABETES MELLITUS TYPE 2 Well-controlled. Hemoglobin A1c 7.2 in clinic last month. FBS = 155. Continue Lantus/NovoLog per protocol. CKD IV + ACUTE KIDNEY INJURY Baseline serum creatinine 3.5. Serum creatinine 3.68 upon admission. Nephrology consulted-appreciate Input Titration of furosemide per Nephrology. Avoid potential nephrotoxins when able. Creatinine stable HYPERTENSION Continue metoprolol succinate Follow and titrate Rx. BPH Wallace inserted by Urology. Wallace discontinued Requiring too much Straight caths PRN. Continue finasteride and tamsulosin. Will reinsert Wallace and OP Urology appointment HEMATURIA Gross hematuria noted after Wallace catheter insertion. May eventually need cystoscopy. Stopped GENERAL DEBILITATION PT / OT evals. VTE PROPHYLAXIS SQ heparin. Ambulate as able. DISPOSITION To be determined. Probably needs skilled care or rehab, but reluctant. PT / OT evals. Case Management following. Family Medicine follow-up with and Dr. Kam Dickey. . Consultants: Pulmonary Cardiology Nephrology Urology . Procedures: Cardiac monitoring Intravenous medications CT abdomen and pelvis CT chest Venous duplex lower extremities Echocardiogram PT OT Awaiting placement ,adamant to go home Vital Signs: Date Time Temp Pulse Resp B/P (MAP) Pulse Ox O2 Delivery O2 Flow Rate FiO2 06/02/17 16:44 74 06/02/17 16:01 71 16 96 Nasal Cannula 2.0 06/02/17 16:00 Nasal Cannula 3.0 06/02/17 15:29 36.7 68 20 121/65 (83) 96 Nasal Cannula 2.5 06/02/17 12:00 Nasal Cannula 3.0 06/02/17 11:55 36.8 67 20 113/70 (84) 95 Nasal Cannula 2.5 06/02/17 11:16 63 16 97 Nasal Cannula 2.0 06/02/17 08:00 Nasal Cannula 4.0 06/02/17 07:11 36.7 70 16 113/52 (72) 93 Nasal Cannula 3.0 06/02/17 06:51 69 16 93 Nasal Cannula 2.0 06/02/17 04:00 Nasal Cannula 4.0 06/02/17 03:30 36.8 76 18 110/57 (74) 90 Nasal Cannula 4.0 06/02/17 00:00 Nasal Cannula 4.0 06/01/17 23:00 36.7 65 20 123/73 (90) 95 Nasal Cannula 4.0 06/01/17 20:02 Nasal Cannula 2.0 06/01/17 19:19 36.5 63 20 152/70 (97) 100 Nasal Cannula 4.0 06/01/17 19:11 53 18 86 Nasal Cannula 2.0 Lab Results: Results Past 24 Hours Test 06/01/17 20:15 06/02/17 05:42 06/02/17 06:31 06/02/17 11:40 Range/Units Bedside Glucose 138 242 176 70-99 mg/dl Sodium Level 134 136-145 mmol/L Potassium Level 4.0 3.5-5.1 mmol/L Chloride Level 97 98-107 mmol/L Carbon Dioxide Level 30 21-32 mmol/L Anion Gap 7.0 3-11 mmol/L Blood Urea Nitrogen 67 7-18 mg/dl Creatinine 3.28 0.60-1.40 mg/dl Est Creatinine Clear Calc Drug Dose 23.2 ml/min Estimated GFR () 19.0 Estimated GFR (Non- 16.4 BUN/Creatinine Ratio 20.4 10-20 Random Glucose 249 70-99 mg/dl Calcium Level 8.7 8.5-10.1 mg/dl Phosphorus Level 5.2 2.5-4.9 mg/dl Magnesium Level 2.5 1.8-2.4 mg/dl Test 06/02/17 16:19 Range/Units Bedside Glucose 206 70-99 mg/dl
[2017-06-02] MEDS: SIMVASTATIN 40 MG TAB PO SCH (20:54)
[2017-06-02] MEDS: GABAPENTIN 300 MG CAP PO SCH (20:54)
[2017-06-02] MEDS: TAMSULOSIN HCL 0.4 MG CAP PO SCH (20:55)
[2017-06-02] MEDS: OMEGA-3 (PURIFIED FISH OIL) 1 GM CAP PO SCH (20:55)
[2017-06-02] MEDS: FINASTERIDE 5 MG TAB PO SCH (20:55)
[2017-06-03] VITALS (10 sets, daily range): BP systolic 103–143; BP diastolic 51–72; PULSE 66–75; TEMP 36.4–37.6; O2SAT 90–98
[2017-06-03] MEDS: ACETAMINOPHEN 325 MG TAB PO PRN (06:19)
[2017-06-03 06:44] LABS: CREATININE 3.26 mg/dl (0.60-1.40)
[2017-06-03 06:45] LABS: MAGNESIUM 2.5 mg/dl (1.8-2.4)
[2017-06-03] MEDS: ALBUT/IPRATROP 3MG/0.5MG NEB 3 ML VIAL INH SCH ×4 (06:59→20:08)
[2017-06-03] MEDS: INSULIN ASPART 100 UNITS/ML 3 ML PEN SC SCH ×4 (07:00→22:02)
[2017-06-03] MEDS: HEPARIN SOD 5000 UNIT/0.5 ML CARP SQ SCH ×3 (07:14→22:02)
[2017-06-03] MEDS: ISOSORBIDE DINITRATE 5 MG TAB PO SCH ×3 (07:51→17:09)
[2017-06-03] MEDS: FLUTICASONE/SALMETEROL (ADVAIR) 500/50 INH 14 PUFF INH SCH ×2 (08:46→21:48)
[2017-06-03] MEDS: ASPIRIN 81 MG ECTAB PO SCH (08:47)
[2017-06-03] MEDS: FUROSEMIDE 40 MG TAB PO SCH ×2 (08:48→17:09)
[2017-06-03] MEDS: METOPROLOL SUCC 50MG EXT REL TAB PO SCH ×2 (08:48→21:50)
[2017-06-03] MEDS: CLOPIDOGREL BISULFATE 75 MG TAB PO SCH (08:48)
[2017-06-03] MEDS: INSULIN GLARGINE SOLOSTAR 100 UNITS/ML 3 ML PEN SC SCH ×2 (09:05→21:59)
--- NOTE | 2017-06-03 11:30 | Progress Note ---
Internal Med Progress Note Date of Service: Jun 03, 2017. Provider Documentation: SUBJECTIVE: The patient was seen and examined Required insertion of Wallace for the 2nd time -Does not want it- 06/01 Generally weak and lethargic Agitated this morning and wants to go home or to [facility] Does not care if he falls at home or not Agreed to go to the Rehab Required insertion of Wallace again Feels much better HE WANTS TO HO HOME BEFORE HE CAN GO TO REHAB OBJECTIVE: Vital Signs-as noted below Exam: General-Moderate distress at rest Obese and non compliant Eyes-Normal ENT-normal Neck-supple Lungs-decreased breath sound bilaterally NO crackles Heart-Irregular,no murmur appreciated Abdomen-Benign,distended,difficult to palpate for any mass, Extremities-Chronic Edema bilaterally-improved Neuro-AAOx3 Lab data as noted below. ASSESSMENT & PLAN: ACUTE ON CHRONIC HYPOXIC, HYPERCAPNIC RESPIRATORY FAILURE Chronic hypoxic respiratory failure on home O2 due to COPD. Complicated by CHF,Sleep Apnea and interstitial lung disease Titrate supplemental oxygen as necessary. BiPAP as necessary for ventilatory support- needs encouragement. On Bronchodilators and Steroid inhalers Appreciate Pulmonary Input Advised to use BIPAP -not being using as advised Medically stable without much improvement of his general condition Clinically much better Continue with physical therapy Likely to go to [facility] Clinically much better No SOB at rest -wants to go home ACUTE ON CHRONIC CHF History of left ventricular systolic heart failure with EF of 35-40 percent, left ventricular diastolic heart failure, probable right-sided heart failure. Echocardiogram demonstrated mild concentric LVH, inferior and inferolateral wall motion abnormalities, overall LVEF 35 -40%, mild tricuspid regurgitation, grade II diastolic dysfunction, mild aortic valve sclerosis without stenosis, no apparent pulmonary hypertension. Received IV furosemide Titration of furosemide per Nephrology- furosemide being restarted today. No NICO or ARB due to CKD. Continue Lasix 60mg BID for now Renal function remains stable ~3.5 NO SOB AT REST Urinary Retention with UTI -received 10 days course of Ampicillin Was seen by Urology Required Wallace placement X2 Will D/C Wallace as per patient request Requiring Wallace -will keep in for ~7 days will need OP appointment with the Urologist CORONARY ARTERY DISEASE No chest pain. Cardiac markers negative. Continue aspirin, clopidogrel, metoprolol, statin. PAROXYSMAL ATRIAL FIB Continue digoxin and metoprolol. No anticoagulation due to history of GI bleeding. Has had a short runs of VT this morning- 05/31/17 Rate remains controlled now No change of medications Rate is controlled PROBABLE SLEEP APNEA / HYPOVENTILATION SYNDROME Continue BiPAP as needed/tolerated. Unable to find any documented sleep studies. Check nocturnal oximetry prior to discharge. Probably needs CPAP or BiPAP at home, but may be unwilling and not been using it . OP Sleep study Has not been keeping BIPAP at night PULMONARY NODULES Noted on previous CT imaging as far back as 2011. PET scan 04/06/16: bilat pulmonary granulomata bilat noncalcified pulmonary nodules, no appreciable FDG activity CT 05/27/17- stable findings compared to 2012. DIABETES MELLITUS TYPE 2 Well-controlled. Hemoglobin A1c 7.2 in clinic last month. FBS = 155. Continue Lantus/NovoLog per protocol. CKD IV + ACUTE KIDNEY INJURY Baseline serum creatinine 3.5. Serum creatinine 3.68 upon admission. Nephrology consulted-appreciate Input Titration of furosemide per Nephrology. Avoid potential nephrotoxins when able. Creatinine stable HYPERTENSION Continue metoprolol succinate Follow and titrate Rx. BPH Wallace inserted by Urology. Wallace discontinued Requiring too much Straight caths PRN. Continue finasteride and tamsulosin. Will reinsert Wallace and OP Urology appointment HEMATURIA Gross hematuria noted after Wallace catheter insertion. May eventually need cystoscopy. Stopped GENERAL DEBILITATION PT / OT evals. VTE PROPHYLAXIS SQ heparin. Ambulate as able. DISPOSITION To be determined. Probably needs skilled care or rehab, but reluctant. PT / OT evals. Case Management following. Family Medicine follow-up with and Dr. Kam Dickey. . Consultants: Pulmonary Cardiology Nephrology Urology . Procedures: Cardiac monitoring Intravenous medications CT abdomen and pelvis CT chest Venous duplex lower extremities Echocardiogram PT OT Awaiting placement ,adamant to go home Voiced that he wants to go home Vital Signs: Date Time Temp Pulse Resp B/P (MAP) Pulse Ox O2 Delivery O2 Flow Rate FiO2 06/03/17 11:10 69 16 98 Nasal Cannula 4.0 06/03/17 08:00 Nasal Cannula 2.5 06/03/17 07:36 36.8 72 19 127/69 (88) 90 Nasal Cannula 2.0 06/03/17 07:01 68 16 91 Nasal Cannula 2.0 06/03/17 04:00 Nasal Cannula 2.5 06/03/17 02:58 37.6 68 16 103/51 (68) 92 Nasal Cannula 2.0 06/03/17 00:00 Nasal Cannula 2.5 06/02/17 23:47 37.4 78 19 136/66 (89) 93 06/02/17 20:00 Nasal Cannula 3.0 06/02/17 18:54 36.8 65 20 123/68 (86) 90 Nasal Cannula 4.0 06/02/17 16:44 74 06/02/17 16:01 71 16 96 Nasal Cannula 2.0 06/02/17 16:00 Nasal Cannula 3.0 06/02/17 15:29 36.7 68 20 121/65 (83) 96 Nasal Cannula 2.5 06/02/17 12:00 Nasal Cannula 3.0 06/02/17 11:55 36.8 67 20 113/70 (84) 95 Nasal Cannula 2.5 Lab Results: Results Past 24 Hours Test 06/02/17 11:40 06/02/17 16:19 06/02/17 19:53 06/03/17 05:53 Range/Units Bedside Glucose 176 206 240 70-99 mg/dl Sodium Level 136 136-145 mmol/L Potassium Level 4.0 3.5-5.1 mmol/L Chloride Level 99 98-107 mmol/L Carbon Dioxide Level 30 21-32 mmol/L Anion Gap 7.0 3-11 mmol/L Blood Urea Nitrogen 72 7-18 mg/dl Creatinine 3.26 0.60-1.40 mg/dl Est Creatinine Clear Calc Drug Dose 23.2 ml/min Estimated GFR () 19.1 Estimated GFR (Non- 16.5 BUN/Creatinine Ratio 22.0 10-20 Random Glucose 132 70-99 mg/dl Calcium Level 9.0 8.5-10.1 mg/dl Magnesium Level 2.5 1.8-2.4 mg/dl Test 06/03/17 06:31 06/03/17 11:13 Range/Units Bedside Glucose 134 182 70-99 mg/dl
[2017-06-03] MEDS: SIMVASTATIN 40 MG TAB PO SCH (21:50)
[2017-06-03] MEDS: GABAPENTIN 300 MG CAP PO SCH (21:50)
[2017-06-03] MEDS: FINASTERIDE 5 MG TAB PO SCH (21:50)
[2017-06-03] MEDS: OMEGA-3 (PURIFIED FISH OIL) 1 GM CAP PO SCH (21:50)
[2017-06-03] MEDS: TAMSULOSIN HCL 0.4 MG CAP PO SCH (21:50)
[2017-06-04] VITALS (10 sets, daily range): BP systolic 110–158; BP diastolic 55–77; PULSE 56–73; TEMP 36.5–36.9; O2SAT 90–99
[2017-06-04] MEDS: ACETAMINOPHEN 325 MG TAB PO PRN ×2 (02:08→09:58)
[2017-06-04] MEDS: HEPARIN SOD 5000 UNIT/0.5 ML CARP SQ SCH ×3 (06:10→21:00)
[2017-06-04] MEDS: ALBUT/IPRATROP 3MG/0.5MG NEB 3 ML VIAL INH SCH ×4 (07:23→19:49)
[2017-06-04] MEDS: FLUTICASONE/SALMETEROL (ADVAIR) 500/50 INH 14 PUFF INH SCH ×2 (07:52→20:50)
[2017-06-04] MEDS: ISOSORBIDE DINITRATE 5 MG TAB PO SCH ×3 (07:54→16:51)
[2017-06-04] MEDS: FUROSEMIDE 40 MG TAB PO SCH ×2 (07:55→16:51)
[2017-06-04] MEDS: ASPIRIN 81 MG ECTAB PO SCH (07:56)
[2017-06-04] MEDS: CLOPIDOGREL BISULFATE 75 MG TAB PO SCH (07:56)
[2017-06-04] MEDS: METOPROLOL SUCC 50MG EXT REL TAB PO SCH ×2 (07:57→20:52)
[2017-06-04] MEDS: INSULIN ASPART 100 UNITS/ML 3 ML PEN SC SCH ×4 (08:07→21:02)
[2017-06-04] MEDS: INSULIN GLARGINE SOLOSTAR 100 UNITS/ML 3 ML PEN SC SCH ×2 (08:08→21:01)
--- NOTE | 2017-06-04 12:28 | Progress Note ---
Internal Med Progress Note Date of Service: Jun 04, 2017. Provider Documentation: SUBJECTIVE: The patient was seen and examined Required insertion of Wallace for the 2nd time -Does not want it- 06/01 Generally weak and lethargic Agitated this morning and wants to go home or to [facility] Does not care if he falls at home or not Agreed to go to the Rehab Required insertion of Wallace again Feels much better HE WANTS TO HO HOME BEFORE HE CAN GO TO REHAB 06/04:remains stable , A little drowsy today OBJECTIVE: Vital Signs-as noted below Exam: General-Moderate distress at rest Obese and non compliant Eyes-Normal ENT-normal Neck-supple Lungs-decreased breath sound bilaterally NO crackles Heart-Irregular,no murmur appreciated Abdomen-Benign,distended,difficult to palpate for any mass, Extremities-Chronic Edema bilaterally-improved Neuro-AAOx3 Lab data as noted below. ASSESSMENT & PLAN: ACUTE ON CHRONIC HYPOXIC, HYPERCAPNIC RESPIRATORY FAILURE Chronic hypoxic respiratory failure on home O2 due to COPD. Complicated by CHF,Sleep Apnea and interstitial lung disease Titrate supplemental oxygen as necessary. BiPAP as necessary for ventilatory support- needs encouragement. On Bronchodilators and Steroid inhalers Appreciate Pulmonary Input Advised to use BIPAP -not being using as advised Medically stable without much improvement of his general condition Clinically much better Continue with physical therapy Likely to go to [facility] Clinically much better No SOB at rest -wants to go home Still plans to go home Will talk to the Social service tomorrow ACUTE ON CHRONIC CHF History of left ventricular systolic heart failure with EF of 35-40 percent, left ventricular diastolic heart failure, probable right-sided heart failure. Echocardiogram demonstrated mild concentric LVH, inferior and inferolateral wall motion abnormalities, overall LVEF 35 -40%, mild tricuspid regurgitation, grade II diastolic dysfunction, mild aortic valve sclerosis without stenosis, no apparent pulmonary hypertension. Received IV furosemide Titration of furosemide per Nephrology- furosemide being restarted today. No NICO or ARB due to CKD. Continue Lasix 60mg BID for now Renal function remains stable ~3.5 NO SOB AT REST Remains reasonably stable Urinary Retention with UTI -received 10 days course of Ampicillin Was seen by Urology Required Wallace placement X2 Will D/C Wallace as per patient request Requiring Wallace -will keep in for ~7 days will need OP appointment with the Urologist CORONARY ARTERY DISEASE No chest pain. Cardiac markers negative. Continue aspirin, clopidogrel, metoprolol, statin. PAROXYSMAL ATRIAL FIB Continue digoxin and metoprolol. No anticoagulation due to history of GI bleeding. 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 Unable to find any documented sleep studies. Check nocturnal oximetry prior to discharge. Probably needs CPAP or BiPAP at home, but may be unwilling and not been using it . OP Sleep study Has not been keeping BIPAP at night PULMONARY NODULES Noted on previous CT imaging as far back as 2011. PET scan 04/06/16: bilat pulmonary granulomata bilat noncalcified pulmonary nodules, no appreciable FDG activity CT 05/27/17- stable findings compared to 2011. DIABETES MELLITUS TYPE 2 Well-controlled. Hemoglobin A1c 7.2 in clinic last month. FBS = 155. Continue Lantus/NovoLog per protocol. CKD IV + ACUTE KIDNEY INJURY Baseline serum creatinine 3.5. Serum creatinine 3.68 upon admission. Nephrology consulted-appreciate Input Titration of furosemide per Nephrology. Avoid potential nephrotoxins when able. Creatinine stable HYPERTENSION Continue metoprolol succinate Follow and titrate Rx. BPH Wallace inserted by Urology. Wallace discontinued Requiring too much Straight caths PRN. Continue finasteride and tamsulosin. Will reinsert Wallace and OP Urology appointment HEMATURIA Gross hematuria noted after Wallace catheter insertion. May eventually need cystoscopy. Stopped GENERAL DEBILITATION PT / OT evals. VTE PROPHYLAXIS SQ heparin. Ambulate as able. DISPOSITION To be determined. Probably needs skilled care or rehab, but reluctant. PT / OT evals. Case Management following. Family Medicine follow-up with and Dr. Kam Dickey. . Consultants: Pulmonary Cardiology Nephrology Urology . Procedures: Cardiac monitoring Intravenous medications CT abdomen and pelvis CT chest Venous duplex lower extremities Echocardiogram PT OT Awaiting placement ,adamant to go home Voiced that he wants to go home Vital Signs: Date Time Temp Pulse Resp B/P (MAP) Pulse Ox O2 Delivery O2 Flow Rate FiO2 06/04/17 11:39 36.6 66 20 158/77 (104) 98 4.0 06/04/17 11:19 65 16 94 Nasal Cannula 3.0 06/04/17 08:00 Nasal Cannula 4.0 06/04/17 07:38 36.5 58 20 110/66 (81) 99 06/04/17 07:23 64 16 99 Nasal Cannula 3.0 06/04/17 04:00 Nasal Cannula 4.0 06/04/17 03:05 36.8 73 19 115/66 (82) 90 Nasal Cannula 4.0 06/04/17 00:00 Nasal Cannula 4.0 06/03/17 23:00 36.6 75 18 143/72 (95) 93 Nasal Cannula 3.5 06/03/17 20:09 68 16 90 Nasal Cannula 3.0 06/03/17 20:00 Nasal Cannula 4.0 06/03/17 19:44 36.8 69 22 131/68 (89) 91 Nasal Cannula 4.0 06/03/17 16:39 Nasal Cannula 2.5 06/03/17 16:00 36.4 66 18 128/71 (90) 93 Nasal Cannula 3.0 06/03/17 15:20 67 16 93 Nasal Cannula 3.0 Lab Results: Results Past 24 Hours Test 06/03/17 16:08 06/03/17 20:27 06/04/17 06:44 06/04/17 11:29 Range/Units Bedside Glucose 180 246 188 219 70-99 mg/dl
[2017-06-04] MEDS: SIMVASTATIN 40 MG TAB PO SCH (20:52)
[2017-06-04] MEDS: FINASTERIDE 5 MG TAB PO SCH (20:52)
[2017-06-04] MEDS: TAMSULOSIN HCL 0.4 MG CAP PO SCH (20:52)
[2017-06-04] MEDS: OMEGA-3 (PURIFIED FISH OIL) 1 GM CAP PO SCH (20:52)
[2017-06-04] MEDS: GABAPENTIN 300 MG CAP PO SCH (21:02)
[2017-06-05] VITALS (10 sets, daily range): BP systolic 117–145; BP diastolic 56–76; PULSE 65–90; TEMP 36.6–37; O2SAT 91–100
[2017-06-05] MEDS: ACETAMINOPHEN 325 MG TAB PO PRN (04:31)
[2017-06-05] MEDS: ALBUT/IPRATROP 3MG/0.5MG NEB 3 ML VIAL INH SCH ×4 (04:36→15:41)
[2017-06-05] MEDS: HEPARIN SOD 5000 UNIT/0.5 ML CARP SQ SCH ×2 (06:18→12:40)
[2017-06-05] MEDS: ISOSORBIDE DINITRATE 5 MG TAB PO SCH ×3 (07:35→16:14)
[2017-06-05] MEDS: ASPIRIN 81 MG ECTAB PO SCH (07:36)
[2017-06-05] MEDS: CLOPIDOGREL BISULFATE 75 MG TAB PO SCH (07:36)
[2017-06-05] MEDS: FLUTICASONE/SALMETEROL (ADVAIR) 500/50 INH 14 PUFF INH SCH (07:37)
[2017-06-05] MEDS: FUROSEMIDE 40 MG TAB PO SCH ×2 (07:38→16:13)
[2017-06-05] MEDS: METOPROLOL SUCC 50MG EXT REL TAB PO SCH (07:38)
[2017-06-05] MEDS: INSULIN ASPART 100 UNITS/ML 3 ML PEN SC SCH ×2 (07:43→12:39)
[2017-06-05] MEDS: INSULIN GLARGINE SOLOSTAR 100 UNITS/ML 3 ML PEN SC SCH (07:44)
[2017-06-05 07:48] LABS: HEMATOCRIT 30.6 % (42-52); MEAN CELL VOLUME 94.2 fL (80-100); MEAN CORPUSCULAR HEMOGLOBIN 30.2 pg (25-34); MEAN PLATELET VOLUME 10.3 fL (7.4-10.4); PLATELET COUNT 182 K/uL (130-400); RED BLOOD COUNT 3.25 M/uL (4.7-6.1); WHITE BLOOD COUNT 9.18 K/uL (4.8-10.8)
[2017-06-05 08:16] LABS: BUN/CREATININE RATIO 21.1 (10-20); CALCIUM 9.2 mg/dl (8.5-10.1); CREATININE 3.25 mg/dl (0.60-1.40); MAGNESIUM 2.4 mg/dl (1.8-2.4); PHOSPHORUS 4.1 mg/dl (2.5-4.9); POTASSIUM 3.9 mmol/L (3.5-5.1)
--- NOTE | 2017-06-05 09:20 | Nephrology Progress Note ---
Nephrology Progress Note Date of Service: Jun 05, 2017. Subjective 86 yo male with ckd stage 4 with baseline creatinine in the 3s who presented with sob and urinary retention. now with chronic chambers. pt feels much better. pt has expressed desire to go home to pay his bills and then go to rehab from home if possible. Objective Date Time Temp Pulse Resp B/P (MAP) Pulse Ox O2 Delivery O2 Flow Rate FiO2 06/05/17 08:19 Nasal Cannula 4.0 06/05/17 08:08 36.8 85 19 118/69 (85) 94 4.0 06/05/17 08:00 Nasal Cannula 4.0 06/05/17 07:02 90 16 95 Nasal Cannula 4.0 06/05/17 07:00 36.7 90 18 120/74 (89) 95 Nasal Cannula 4.0 06/05/17 04:36 68 16 94 Nasal Cannula 3.0 06/05/17 04:00 Nasal Cannula 4.0 06/05/17 03:58 36.9 72 19 117/56 (76) 91 Nasal Cannula 4.0 06/05/17 00:00 Nasal Cannula 4.0 06/04/17 23:51 36.7 69 19 130/55 (80) 93 Nasal Cannula 4.0 06/04/17 20:00 Nasal Cannula 4.0 06/04/17 19:49 66 16 93 Nasal Cannula 3.0 06/04/17 19:36 36.9 68 22 123/66 (85) 95 Nasal Cannula 4.0 06/04/17 16:30 Nasal Cannula 4.0 06/04/17 15:14 56 16 93 Nasal Cannula 3.0 06/04/17 15:04 36.9 68 16 122/68 (86) 92 Nasal Cannula 4.0 06/04/17 12:00 Nasal Cannula 4.0 06/04/17 11:39 36.6 66 20 158/77 (104) 98 4.0 06/04/17 11:19 65 16 94 Nasal Cannula 3.0 Physical Exam: General-aaox3 Eyes-no scleral icterus ENT-mmm Neck-supple Lungs-cta Heart-regular Abdomen-bs+ s/nt/nd Extremities-no edema Neuro-nonfocal -chronic chambers Current Inpatient Medications Medications (Trade) Dose Ordered Sig/Ronak Route Start Time Stop Time Status Last Admin Dose Admin Heparin Sodium (Porcine) (Heparin Sq 5000 Unit/0.5ml) 5,000 unit Q8 SQ 05/24/17 22:00 06/23/17 13:59 06/05/17 06:18 5,000 UNIT Acetaminophen (Tylenol Tab) 650 mg Q4H PRN PO 05/24/17 13:15 06/23/17 13:14 06/05/17 04:31 650 MG Ondansetron HCl (Zofran Inj) 4 mg Q6H PRN IV 05/24/17 13:15 06/23/17 13:14 Nitroglycerin (Nitrostat Tab) 0.4 mg UD PRN SL 05/24/17 13:15 06/23/17 13:14 Insulin Aspart (novoLOG ASPART) SLIDING SCALE If C... ACHS SC 05/24/17 16:15 06/23/17 16:14 06/05/17 07:43 5 UNITS Glucose (Glucose 40% Gel) 15-30 GRAMS 15 GRAMS... UD PRN PO 05/24/17 14:30 06/23/17 14:29 Glucose (Glucose Chew Tab) 4-8 Tablets 4 Tabl... UD PRN PO 05/24/17 14:30 06/23/17 14:29 Dextrose (Dextrose 50% 50ML Syringe) 25-50ML OF 50% DW IV FOR... UD PRN IV 05/24/17 14:30 06/23/17 14:29 Glucagon (Glucagon Inj) 1 mg UD PRN SQ 05/24/17 14:30 06/23/17 14:29 Aspirin (Ecotrin Tab) 81 mg QAM PO 05/25/17 09:00 06/24/17 08:59 06/05/17 07:36 81 MG Clopidogrel Bisulfate (plAVix TAB) 75 mg QAM PO 05/25/17 09:00 06/24/17 08:59 06/05/17 07:36 75 MG Digoxin (Lanoxin Tab) 0.125 mg MoFr@1600 PO 05/26/17 16:00 06/25/17 15:59 06/02/17 16:44 0.125 MG Finasteride (Proscar Tab) 5 mg HS PO 05/24/17 21:00 06/23/17 20:59 06/04/17 20:52 5 MG Fish Oil ([place]-3 (Purified Fish Oil) Cap) 1 gm HS PO 05/24/17 21:00 06/23/17 20:59 06/04/17 20:52 1 GM Gabapentin (Neurontin Cap) 300 mg HS PO 05/24/17 21:00 06/23/17 20:59 06/04/17 21:02 300 MG Metoprolol Succinate (Toprol Xl Tab) 100 mg BID PO 05/24/17 21:00 06/23/17 20:59 06/05/17 07:38 100 MG Simvastatin (Zocor Tab) 40 mg QPM PO 05/24/17 21:00 06/23/17 20:59 06/04/17 20:52 40 MG Tamsulosin HCl (Flomax Cap) 0.4 mg HS PO 05/24/17 21:00 06/23/17 20:59 06/04/17 20:52 0.4 MG Albuterol/ Ipratropium (Duoneb) 3 ml QIDR INH 05/24/17 20:00 06/23/17 19:59 06/05/17 07:02 3 ML Salmeterol Xinafoate/ Fluticasone (Advair Diskus 500/50 Inh) 1 puff BID INH 05/26/17 21:00 06/25/17 20:59 06/05/17 07:37 1 PUFF Insulin Glargine (Lantus Solostar Pen) BSG LANTUS SQ < ... BID SC 05/28/17 21:00 06/27/17 20:59 06/05/17 07:44 20 UNITS Furosemide (Lasix Tab) 60 mg BID17 PO 05/29/17 17:00 06/28/17 16:59 06/05/17 07:38 60 MG Isosorbide Dinitrate (Isordil Tab) 5 mg TID@0700,1200,1700 PO 05/29/17 12:00 06/28/17 11:59 06/05/17 07:35 5 MG Miconazole Nitrate (Desenex Powder) 1 appln BID PRN EXT 05/29/17 21:00 06/28/17 20:59 Last 24 Hours Test 06/04/17 11:29 06/04/17 15:57 06/04/17 20:17 06/05/17 06:21 Bedside Glucose 219 mg/dl 204 mg/dl 194 mg/dl 159 mg/dl Test 06/05/17 06:53 White Blood Count 9.18 K/uL Red Blood Count 3.25 M/uL Hemoglobin 9.8 g/dL Hematocrit 30.6 % Mean Corpuscular Volume 94.2 fL Mean Corpuscular Hemoglobin 30.2 pg Mean Corpuscular Hemoglobin Concent 32.0 g/dl RDW Standard Deviation 48.9 fL RDW Coefficient of Variation 14.1 % Platelet Count 182 K/uL Mean Platelet Volume 10.3 fL Sodium Level 138 mmol/L Potassium Level 3.9 mmol/L Chloride Level 99 mmol/L Carbon Dioxide Level 32 mmol/L Anion Gap 7.0 mmol/L Blood Urea Nitrogen 69 mg/dl Creatinine 3.25 mg/dl Est Creatinine Clear Calc Drug Dose 23.3 ml/min Estimated GFR () 19.2 Estimated GFR (Non- 16.5 BUN/Creatinine Ratio 21.1 Random Glucose 148 mg/dl Calcium Level 9.2 mg/dl Phosphorus Level 4.1 mg/dl Magnesium Level 2.4 mg/dl Assessment & Plan ckd stage 6-gqw-xzerstte-creatinine in the low 3s, volume status is appropriate. will continue to follow with nephrology as previously scheduled. ok from renal perspective to be discharged once medically cleared. continue current diuretics as outpt.
--- NOTE | 2017-06-05 12:13 | Progress Note ---
Subjective Date of Service: Jun 05, 2017. Subjective Pt evaluation today including: conversation w/ patient, chart review, lab review Voiding: chambers catheter in place (patent, draining yellow-sky colored urine) Pt failed TOV. Chambers catheter replaced. Pt denies pain with chambers. Problem List Medical Problems: (1) ARF (acute renal failure) Status: Acute (2) Chronic hypoxemic respiratory failure Status: Chronic (3) Diverticulitis Status: Acute (4) Hyperglycemia Status: Acute (5) Lower GI bleed Status: Acute (6) Renal failure Status: Acute Review of Systems Constitutional: No fever, No chills Respiratory: No shortness of breath Cardiac: No chest pain Abdomen: No pain, No nausea, No vomiting Male : No hematuria Heme: No abnormal bleeding/bruising Objective Vital Signs Date Time Temp Pulse Resp B/P (MAP) Pulse Ox O2 Delivery O2 Flow Rate FiO2 06/05/17 11:51 37.0 73 20 145/76 (99) 96 Nasal Cannula 5.0 06/05/17 11:12 65 16 98 Nasal Cannula 4.0 06/05/17 11:04 36.7 86 18 122/72 (89) 95 4.0 06/05/17 08:19 Nasal Cannula 4.0 06/05/17 08:08 36.8 85 19 118/69 (85) 94 4.0 06/05/17 08:00 Nasal Cannula 4.0 06/05/17 07:02 90 16 95 Nasal Cannula 4.0 06/05/17 07:00 36.7 90 18 120/74 (89) 95 Nasal Cannula 4.0 06/05/17 04:36 68 16 94 Nasal Cannula 3.0 06/05/17 04:00 Nasal Cannula 4.0 06/05/17 03:58 36.9 72 19 117/56 (76) 91 Nasal Cannula 4.0 06/05/17 00:00 Nasal Cannula 4.0 06/04/17 23:51 36.7 69 19 130/55 (80) 93 Nasal Cannula 4.0 06/04/17 20:00 Nasal Cannula 4.0 06/04/17 19:49 66 16 93 Nasal Cannula 3.0 06/04/17 19:36 36.9 68 22 123/66 (85) 95 Nasal Cannula 4.0 06/04/17 16:30 Nasal Cannula 4.0 06/04/17 15:14 56 16 93 Nasal Cannula 3.0 06/04/17 15:04 36.9 68 16 122/68 (86) 92 Nasal Cannula 4.0 Physical Exam General Appearance: no apparent distress, + obese Eyes: normal inspection ENT: hearing grossly normal Neck: no JVD Respiratory/Chest: no respiratory distress, no accessory muscle use Cardiovascular: no JVD Extremities: normal inspection Neurologic/Psychiatric: alert, normal mood/affect, oriented x 3 Skin: normal color Laboratory Results Last 24 Hours Test 06/04/17 15:57 06/04/17 20:17 06/05/17 06:21 06/05/17 06:53 Bedside Glucose 204 mg/dl 194 mg/dl 159 mg/dl White Blood Count 9.18 K/uL Red Blood Count 3.25 M/uL Hemoglobin 9.8 g/dL Hematocrit 30.6 % Mean Corpuscular Volume 94.2 fL Mean Corpuscular Hemoglobin 30.2 pg Mean Corpuscular Hemoglobin Concent 32.0 g/dl RDW Standard Deviation 48.9 fL RDW Coefficient of Variation 14.1 % Platelet Count 182 K/uL Mean Platelet Volume 10.3 fL Sodium Level 138 mmol/L Potassium Level 3.9 mmol/L Chloride Level 99 mmol/L Carbon Dioxide Level 32 mmol/L Anion Gap 7.0 mmol/L Blood Urea Nitrogen 69 mg/dl Creatinine 3.25 mg/dl Est Creatinine Clear Calc Drug Dose 23.3 ml/min Estimated GFR () 19.2 Estimated GFR (Non- 16.5 BUN/Creatinine Ratio 21.1 Random Glucose 148 mg/dl Calcium Level 9.2 mg/dl Phosphorus Level 4.1 mg/dl Magnesium Level 2.4 mg/dl Test 06/05/17 10:55 Bedside Glucose 173 mg/dl Assessment and Plan A/P: Urinary retention Plan to leave chambers catheter in place for 7-10 days. Will plan for outpatient TOV at that time. Continue finasteride and Flomax. Pt OK for d/c from perspective. Will sign off for now. Recall PRN issues. Will arrange for outpatient f/u with Dr. Bean in 7-10 days.
--- NOTE | 2017-06-05 13:11 | Progress Note ---
Internal Med Progress Note Date of Service: Jun 05, 2017. Provider Documentation: Patient is very adamant to go home.Coordinated care with Physical Therapist , social service,nursing staff,PCPs note and Home Health nurse and decided to send him home with Home PT.He will call his [place] to drive him home and social service will arrange Out patient PT. He understands that he may fall and injure himself and even he may from his ongoing medical condition. I spent more than 2 hours on different occasion to persuade him that he needs to go to Rehab. SUBJECTIVE: The patient was seen and examined Required insertion of Wallace for the 2nd time -Does not want it- 06/01 Generally weak and lethargic Agitated this morning and wants to go home or to [facility] Does not care if he falls at home or not Agreed to go to the Rehab Required insertion of Wallace again Feels much better HE WANTS TO HO HOME BEFORE HE CAN GO TO REHAB Remains stable today 06/05/17 Much drowsy today Awaiting Rehab OBJECTIVE: Vital Signs-as noted below Exam: General-Moderate distress at rest Obese and non compliant Eyes-Normal ENT-normal Neck-supple Lungs-decreased breath sound bilaterally No crackles and or wheezing Heart-Irregular,no murmur appreciated Abdomen-Benign,distended,difficult to palpate for any mass, Extremities-Chronic Edema bilaterally-improved Neuro-AAOx3 Lab data as noted below. ASSESSMENT & PLAN: ACUTE ON CHRONIC HYPOXIC, HYPERCAPNIC RESPIRATORY FAILURE Chronic hypoxic respiratory failure on home O2 due to COPD. Complicated by CHF,Sleep Apnea and interstitial lung disease Titrate supplemental oxygen as necessary. BiPAP as necessary for ventilatory support- needs encouragement. On Bronchodilators and Steroid inhalers Appreciate Pulmonary Input Advised to use BIPAP -not being using as advised Medically stable without much improvement of his general condition Clinically much better Continue with physical therapy Likely to go to [facility] Updated PT evaluation-will need to go to Rehab Awaiting approval to go to [facility] ACUTE ON CHRONIC CHF History of left ventricular systolic heart failure with EF of 35-40 percent, left ventricular diastolic heart failure, probable right-sided heart failure. Echocardiogram demonstrated mild concentric LVH, inferior and inferolateral wall motion abnormalities, overall LVEF 35 -40%, mild tricuspid regurgitation, grade II diastolic dysfunction, mild aortic valve sclerosis without stenosis, no apparent pulmonary hypertension. Received IV furosemide Titration of furosemide per Nephrology- furosemide being restarted today. No NICO or ARB due to CKD. Continue Lasix 60mg BID for now Renal function remains stable ~3.5 NO SOB AT REST Remains reasonably stable without any significant symptoms Urinary Retention with UTI -received 10 days course of Ampicillin Was seen by Urology Required Wallace placement X2 Will D/C Wallace as per patient request Requiring Wallace -will keep in for ~7to 10 days will need OP appointment with the Urologist CORONARY ARTERY DISEASE No chest pain. Cardiac markers negative. Continue aspirin, clopidogrel, metoprolol, statin. PAROXYSMAL ATRIAL FIB Continue digoxin and metoprolol. No anticoagulation due to history of GI bleeding. 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 Unable to find any documented sleep studies. Check nocturnal oximetry prior to discharge. Probably needs CPAP or BiPAP at home, but may be unwilling and not been using it . OP Sleep study Has not been keeping BIPAP at night -stressed the importance to keep BICAP on at NIGHT PULMONARY NODULES Noted on previous CT imaging as far back as 2011. PET scan 04/06/16: bilat pulmonary granulomata bilat noncalcified pulmonary nodules, no appreciable FDG activity CT 05/27/17- stable findings compared to 2012. DIABETES MELLITUS TYPE 2 Well-controlled. Hemoglobin A1c 7.2 in clinic last month. FBS = 155. Continue Lantus/NovoLog per protocol. CKD IV + ACUTE KIDNEY INJURY Baseline serum creatinine 3.5. Serum creatinine 3.68 upon admission. Nephrology consulted-appreciate Input Titration of furosemide per Nephrology. Avoid potential nephrotoxins when able. Creatinine stable -appreciate Nephrology input HYPERTENSION Continue metoprolol succinate Follow and titrate Rx. BPH Wallace inserted by Urology. Wallace discontinued Requiring too much Straight caths PRN. Continue finasteride and tamsulosin. Will reinsert Wallace and OP Urology appointment HEMATURIA Gross hematuria noted after Wallace catheter insertion. May eventually need cystoscopy. Stopped GENERAL DEBILITATION PT / OT evals. VTE PROPHYLAXIS SQ heparin. Ambulate as able. DISPOSITION To be determined. Probably needs skilled care or rehab, but reluctant. PT / OT evals. Case Management following. Family Medicine follow-up with and Dr. Kam Dickey. . Consultants: Pulmonary Cardiology Nephrology Urology . Procedures: Cardiac monitoring Intravenous medications CT abdomen and pelvis CT chest Venous duplex lower extremities Echocardiogram PT OT He understands the Medical conditions that he has He understands the risk of not complying with the medications and the recommendations He is AAOx3 He is competent to make his own decision as per my assessment. He was discharged home. Vital Signs: Date Time Temp Pulse Resp B/P (MAP) Pulse Ox O2 Delivery O2 Flow Rate FiO2 06/05/17 16:12 80 06/05/17 15:43 76 16 98 Nasal Cannula 4.0 06/05/17 15:02 36.6 74 20 123/62 (82) 100 Nasal Cannula 4.0 06/05/17 11:51 37.0 73 20 145/76 (99) 96 Nasal Cannula 5.0 06/05/17 11:12 65 16 98 Nasal Cannula 4.0 06/05/17 11:04 36.7 86 18 122/72 (89) 95 4.0 06/05/17 08:19 Nasal Cannula 4.0 06/05/17 08:08 36.8 85 19 118/69 (85) 94 4.0 06/05/17 08:00 Nasal Cannula 4.0 06/05/17 07:02 90 16 95 Nasal Cannula 4.0 06/05/17 07:00 36.7 90 18 120/74 (89) 95 Nasal Cannula 4.0 06/05/17 04:36 68 16 94 Nasal Cannula 3.0 06/05/17 04:00 Nasal Cannula 4.0 06/05/17 03:58 36.9 72 19 117/56 (76) 91 Nasal Cannula 4.0 06/05/17 00:00 Nasal Cannula 4.0 06/04/17 23:51 36.7 69 19 130/55 (80) 93 Nasal Cannula 4.0 06/04/17 20:00 Nasal Cannula 4.0 06/04/17 19:49 66 16 93 Nasal Cannula 3.0 06/04/17 19:36 36.9 68 22 123/66 (85) 95 Nasal Cannula 4.0 06/04/17 16:30 Nasal Cannula 4.0 Lab Results: Results Past 24 Hours Test 06/04/17 20:17 06/05/17 06:21 06/05/17 06:53 06/05/17 10:55 Range/Units Bedside Glucose 194 159 173 70-99 mg/dl White Blood Count 9.18 4.8-10.8 K/uL Red Blood Count 3.25 4.7-6.1 M/uL Hemoglobin 9.8 14.0-18.0 g/dL Hematocrit 30.6 42-52 % Mean Corpuscular Volume 94.2 80-100 fL Mean Corpuscular Hemoglobin 30.2 25-34 pg Mean Corpuscular Hemoglobin Concent 32.0 32-36 g/dl RDW Standard Deviation 48.9 36.4-46.3 fL RDW Coefficient of Variation 14.1 11.5-14.5 % Platelet Count 182 130-400 K/uL Mean Platelet Volume 10.3 7.4-10.4 fL Sodium Level 138 136-145 mmol/L Potassium Level 3.9 3.5-5.1 mmol/L Chloride Level 99 98-107 mmol/L Carbon Dioxide Level 32 21-32 mmol/L Anion Gap 7.0 3-11 mmol/L Blood Urea Nitrogen 69 7-18 mg/dl Creatinine 3.25 0.60-1.40 mg/dl Est Creatinine Clear Calc Drug Dose 23.3 ml/min Estimated GFR () 19.2 Estimated GFR (Non- 16.5 BUN/Creatinine Ratio 21.1 10-20 Random Glucose 148 70-99 mg/dl Calcium Level 9.2 8.5-10.1 mg/dl Phosphorus Level 4.1 2.5-4.9 mg/dl Magnesium Level 2.4 1.8-2.4 mg/dl
[2017-06-05] MEDS ORDERED: ISR5 PO (15:53)
--- NOTE | 2017-06-05 16:00 | Discharge Instructions ---
Discharge Instructions Date of Service Jun 05, 2017. Admission Reason for Admission: Volume Overload Discharge Discharge Diagnosis / Problem: Acute on Chronic Respiratory failure on home oxygen ,Acute on Chr CHF,CKD Discharge Goals Goal(s): Prevent Disease Progression Activity Recommendations Activity Limitations: resume your previous activity (Take precaution to avoid fall) . Instructions / Follow-Up Instructions / Follow-Up Dr Dickey on 06/12/17 at 10:55AM ,Keep appointment with Urologist Current Hospital Diet Patient's current hospital diet: AHA Diet (Heart Healthy), Low Sodium Diet (2gm Na), Diabetes Type 2 Diet, Renal Diet Discharge Diet Recommended Diet: AHA Diet (Heart Healthy), Low Sodium Diet (2gm Na) Fluid Restriction: 1500 ml (6 cups) Pending Studies Studies pending at discharge: no Medical Emergencies . Who to Call and When: Medical Emergencies: If at any time you feel your situation is an emergency, please call 911 immediately. . Non-Emergent Contact Non-Emergency issues call your: Primary Care Provider . Past History Medical & Surgical History: (1) HTN (hypertension) (2) COPD (chronic obstructive pulmonary disease) (3) CAD (coronary artery disease) (4) Chronic hypoxemic respiratory failure (5) Pulmonary nodules (6) CKD (chronic kidney disease), stage IV (7) Systolic and diastolic CHF, chronic (8) Atrial fibrillation (9) DM2 (diabetes mellitus, type 2) (10) HLD (hyperlipidemia) (11) Renal failure (12) s/p laser vaporization of prostate 11/01/11 (13) Transurethral prostatectomy (14) H/O hernia repair . "Provider Documentation" section prepared by Basilio Masters. . VTE Core Measure Inpt VTE Proph given/why not?: Unfractionated heparin SQ
[2017-06-05] MEDS: DIGOXIN 0.125 MG TAB PO SCH (16:12)
--- NOTE | 2017-06-05 16:44 | Discharge Summary ---
Discharge Summary Date of Service Jun 05, 2017. Discharge Summary Admission Date: May 24, 2017 at 13:11 Discharge Disposition: Home with services Principal Diagnosis: Acute on Chronic Respiratory failure on home oxygen ,Acute on Chr CHF,CKD Secondary Diagnoses/Problems: Please see H&P and Hospital Progress note Procedures: Cardiac monitoring Intravenous medications CT abdomen and pelvis CT chest Venous duplex lower extremities Echocardiogram PT OT . Consultations: Pulmonary, Cardiology, Nephrology, Urology . Medication Reconciliation New Medications: Isosorbide Dinitrate (Isosorbide Dinitrate) 5 Mg Tab 5 MG PO TID@0700,1200,1700 for 30 Days, #90 TAB Continued Medications: Albuterol Sulfate (Proair Respiclick) 108 Mcg/Act Aer 2 PUFFS INH Q4H PRN for SOB/Wheezing Aspirin (Aspirin Ec) 81 Mg Tab 81 MG PO QAM Clopidogrel (Plavix) 75 Mg Tab 75 MG PO QAM, TAB Digoxin (Digoxin) 0.125 Mg Tab 0.125 MG PO 2XWK Monday and Monday Finasteride (Proscar) 5 Mg Tab 1 TAB PO HS, TAB Fish Oil (Tamarack-3) 1 Ea Cap 1 CAP PO HS, 0 Refills Fluticasone Prop/Salmeterol (Advair Diskus 250/50 60 Dose) 1 Ea Aerp 1 PUFF INH BID, INHALER Furosemide (Furosemide) 40 Mg Tab 60 MG PO BID Gabapentin (Neurontin) 300 Mg Cap 1 CAP PO HS for 30 Days, CAP 3 Refills Home O2 Therapy (Oxygen) Gas 3-4 LITERS NA CONTINOUS Insulin Glargine (Lantus) 100 Unit/Ml Inj 50 UNITS SC BID Metoprolol Succ (Toprol Xl) (Toprol-Xl ) 100 Mg Tabcr 100 MG PO BID Nitroglycerin (Nitrostat) 0.4 Mg Tab 0.4 MG UT UD PRN for Chest Pain, 0 Refills Simvastatin (Simvastatin) 40 Mg Tab 40 MG PO QPM Tamsulosin HCl (Tamsulosin HCl) 0.4 Mg Cap 0.4 MG PO HS Admission Information HPI (per Admitting provider): 86 year old male who presents to the ED with shortness of breath. Patient reports shortness of breath has been worsening over the past two weeks. He reports shortness of breath with minimal exertion. He chronically wears 2L of oxygen. He reports orthopnea and has been sleeping sitting up in the chair. He has chronic lower extremity edema which has been worsening. He also feels his abdomen has been getting larger which he attributes to "eating junk food." He denies chest pain and palpitations. He reports an occasional chronic dry cough which is unchanged. He denies lightheadedness, dizziness, diaphoresis, and syncopal events. No fevers or chills. He denies abdominal pain, nausea, vomiting , or diarrhea. No urinary symptoms. In the ED, patient was saturating in the 80s on his chronic 2L. Oxygen saturations improved with 4L oxygen via mask. CXR suggests CHF. Patient is afebrile, no leukocytosis. BPs are stable. He was given a neb. Past Medical/Surgical History Medical Problems: (1) Atrial fibrillation Status: Chronic (2) CAD (coronary artery disease) Permanent Comment: 1995 - inferior wall UT 1999 - RCA intervention 2006 - left cx intervention 07/2010 - high grade mid and RCA stenosis inside prior stenting s/p intervention 2010 - stent occlusion due to ASA and Plavix being held for procedure; RCA was unable to be reopened, s/p stent to left cx Status: Chronic (3) Chronic hypoxemic respiratory failure Status: Chronic (4) CKD (chronic kidney disease), stage IV Status: Chronic (5) COPD (chronic obstructive pulmonary disease) Status: Chronic (6) DM2 (diabetes mellitus, type 2) Status: Chronic (7) HLD (hyperlipidemia) Status: Chronic (8) HTN (hypertension) Status: Chronic (9) Pulmonary nodules Permanent Comment: multiple calcified and noncalcified pulmonary nodules noted on CT chest 11/14/11 Status: Chronic (10) Systolic and diastolic CHF, chronic Permanent Comment: echo 2011 - EF 35-40%, grade II diastolic dysfunction Status: Chronic Surgical Problems: (1) H/O hernia repair Status: Chronic (2) s/p laser vaporization of prostate 11/01/11 Status: Chronic (3) Transurethral prostatectomy Status: Chronic Family History non contributory due to patient's advanced age Social History Smoking Status: Former Smoker Alcohol Use: none Housing status: lives alone Immunizations History of Influenza Vaccine: Yes Influenza Vaccine Date: Jun 06, 2016 History of Tetanus Vaccine?: Yes Tetanus Immunization Date: Sep 19, 2013 History of Pneumococcal: Yes Pneumococcal Date: Oct 20, 2014 History of Hepatitis B Vaccine: Unknown Multi-Drug Resistant Organisms History of MDRO: No Allergies Coded Allergies: Iodine (Verified Allergy, Mild, HIVES, 05/24/17) Sulfa Antibiotics (Verified Allergy, Unknown, ENTERED SULFA- UNKNOWN, 05/24/17) Home Medications Scheduled Aspirin (Aspirin Ec), 81 MG PO QAM Clopidogrel (Plavix), 75 MG PO QAM Digoxin (Digoxin), 0.125 MG PO 2XWK Finasteride (Proscar), 1 TAB PO HS Fish Oil (Tamarack-3), 1 CAP PO HS Fluticasone Prop/Salmeterol (Advair Diskus 250/50 60 Dose), 1 PUFF INH BID Furosemide (Furosemide), 80 MG PO BID Gabapentin (Neurontin), 1 CAP PO HS Home O2 Therapy (Oxygen), 2 LITERS NA CONTINOUS Insulin Glargine (Lantus), 50 UNITS SC BID Metoprolol Succ (Toprol Xl) (Toprol-Xl ), 100 MG PO BID Simvastatin (Simvastatin), 40 MG PO QPM Tamsulosin HCl (Tamsulosin HCl), 0.4 MG PO HS Scheduled PRN Albuterol Sulfate (Proair Respiclick), 2 PUFFS INH Q4H PRN for SOB/Wheezing Nitroglycerin (Nitrostat), 0.4 MG UT UD PRN for Chest Pain Review of Systems ROS per HPI, all other systems reviewed and negative Physical Ex - H&P Physical Exam Vital Signs Date Time Temp Pulse Resp B/P (MAP) Pulse Ox O2 Delivery O2 Flow Rate FiO2 05/24/17 14:57 61 25 165/90 97 05/24/17 14:20 36.7 60 21 135/81 95 05/24/17 14:08 60 21 95 05/24/17 14:02 135/81 05/24/17 13:38 61 25 96 05/24/17 13:31 156/74 05/24/17 13:29 64 05/24/17 13:16 140/73 05/24/17 13:08 59 22 96 05/24/17 13:01 174/92 05/24/17 12:38 63 25 93 05/24/17 12:31 169/92 05/24/17 12:26 67 24 181/80 93 Mask 4.0 05/24/17 12:25 181/80 05/24/17 12:08 63 22 91 10/25/17 12:01 178/104 05/24/17 11:38 64 24 93 05/24/17 11:32 180/94 05/24/17 11:31 93 Mask 4.0 05/24/17 11:08 60 30 94 05/24/17 11:01 143/92 05/24/17 10:49 58 05/24/17 10:47 135/89 05/24/17 10:37 83 Nasal Cannula 2.0 05/24/17 10:28 36.7 62 24 140/71 83 Nasal Cannula 2.0 General Appearance: WD/WN, no apparent distress, + obese Head: normocephalic, atraumatic Eyes: normal inspection, EOMI, sclerae normal ENT: hearing grossly normal, + pertinent finding (musous membranes moist) Neck: supple, no JVD, trachea midline Respiratory/Chest: no respiratory distress, + decreased breath sounds (BL bases ) Cardiovascular: regular rate, rhythm, normal peripheral pulses, + pertinent finding (+2 edema BLLE) Abdomen/GI: normal bowel sounds, non tender, soft, no organomegaly Extremities/Musculoskelatal: normal inspection, no calf tenderness, normal capillary refill Neurologic/Psych: no motor/sensory deficits, alert, normal mood/affect, oriented x 3 Skin: normal color, warm/dry Diagnostics - H&P Diagnostics Laboratory Results Results Past 24 Hours Test 05/24/17 10:55 05/24/17 11:17 05/24/17 11:40 05/24/17 11:49 Range/Units White Blood Count 8.40 4.8-10.8 K/uL Red Blood Count 3.50 4.7-6.1 M/uL Hemoglobin 10.5 14.0-18.0 g/dL Hematocrit 33.4 42-52 % Mean Corpuscular Volume 95.4 80-100 fL Mean Corpuscular Hemoglobin 30.0 25-34 pg Mean Corpuscular Hemoglobin Concent 31.4 32-36 g/dl Platelet Count 144 130-400 K/uL Mean Platelet Volume 11.2 7.4-10.4 fL Neutrophils (%) (Auto) 82.6 % Lymphocytes (%) (Auto) 7.1 % Monocytes (%) (Auto) 6.8 % Eosinophils (%) (Auto) 2.5 % Basophils (%) (Auto) 0.5 % Neutrophils # (Auto) 6.94 1.4-6.5 K/uL Lymphocytes # (Auto) 0.60 1.2-3.4 K/uL Monocytes # (Auto) 0.57 0.11-0.59 K/uL Eosinophils # (Auto) 0.21 0-0.5 K/uL Basophils # (Auto) 0.04 0-0.2 K/uL RDW Standard Deviation 50.1 36.4-46.3 fL RDW Coefficient of Variation 14.6 11.5-14.5 % Immature Granulocyte % (Auto) 0.5 % Immature Granulocyte # (Auto) 0.04 0.00-0.02 K/uL Erythrocyte Sedimentation Rate 24 0-14 mm/hr Prothrombin Time 10.8 9.0-12.0 SECONDS Prothromb Time International Ratio 1.0 0.9-1.1 Activated Partial Thromboplast Time 27.5 21.0-31.0 SECONDS Partial Thromboplastin Ratio 1.1 Sodium Level 140 136-145 mmol/L Potassium Level 4.1 3.5-5.1 mmol/L Chloride Level 105 98-107 mmol/L Carbon Dioxide Level 30 21-32 mmol/L Anion Gap 6.0 3-11 mmol/L Blood Urea Nitrogen 49 7-18 mg/dl Creatinine 3.68 0.60-1.40 mg/dl Est Creatinine Clear Calc Drug Dose 21.0 ml/min Estimated GFR () 16.5 Estimated GFR (Non- 14.2 BUN/Creatinine Ratio 13.4 10-20 Random Glucose 142 70-99 mg/dl Calcium Level 8.5 8.5-10.1 mg/dl Phosphorus Level 4.3 2.5-4.9 mg/dl Magnesium Level 2.2 1.8-2.4 mg/dl Total Bilirubin 0.5 0.2-1 mg/dl Aspartate Amino Transf (AST/SGOT) 9 15-37 U/L Alanine Aminotransferase (ALT/SGPT) 17 12-78 U/L Alkaline Phosphatase 57 45-117 U/L Total Creatine Kinase 34 39-308 U/L Creatine Kinase MB 1.5 0.5-3.6 ng/ml Creatine Kinase MB Ratio 4.4 0-3.0 Troponin I 0.031 0-0.045 ng/ml C-Reactive Protein 0.80 0-0.29 mg/dl Pro-B-Type Natriuretic Peptide 4121 0-1800 pg/ml Total Protein 7.5 6.4-8.2 gm/dl Albumin 3.3 3.4-5.0 gm/dl Globulin 4.2 2.5-4.0 gm/dl Albumin/Globulin Ratio 0.8 0.9-2 Lipase 205 73-393 U/L Digoxin Level 0.5 0.8-2.0 ng/ml Venous Blood pH 7.28 7.36-7.41 Venous Blood Partial Pressure CO2 68 38.0-50.0 mmHg Venous Blood Partial Pressure O2 36 mmHg Venous Blood HCO3 32 mmol/L Venous Blood Oxygen Saturation < 60.0 % Venous Blood Base Excess 3.8 mEq/L Urine Color YELLOW Urine Appearance CLEAR CLEAR Urine pH 5.5 4.5-7.5 Urine Specific [place] 1.013 1.000-1.030 Urine Protein TRACE NEG Urine Glucose (UA) TRACE NEG Urine Ketones NEG NEG Urine Occult Blood 1+ NEG Urine Nitrite NEG NEG Urine Bilirubin NEG NEG Urine Urobilinogen NEG NEG Urine Leukocyte Esterase NEG NEG Urine WBC (Auto) 1-5 0-5 /hpf Urine RBC (Auto) 10-30 0-4 /hpf Urine Hyaline Casts (Auto) 5-10 0-5 /lpf Urine Epithelial Cells (Auto) 0-5 0-5 /lpf Urine Bacteria (Auto) NEG NEG Urine Pathogenic Casts 0-3 GRANULAR CASTS 0 /lpf Urine Yeast (Auto) NONE PRSENT Bedside Lactic Acid Venous 0.71 0.90-1.70 mmol/L Test 05/24/17 14:22 Range/Units Arterial Blood pH 7.31 7.35-7.45 Arterial Blood Partial Pressure CO2 62 35-46 mmHg Arterial Blood Partial Pressure O2 82 80-95 mm/Hg Arterial Blood HCO3 30 19-24 mmol/L Arterial Blood Oxygen Saturation 94.0 90-95 % Arterial Blood Base Excess 2.8 -9-1.8 mEq/L Arterial Blood Gas Delivery 4 L Jay Test POS POS Microbiology Results 05/24/17 Blood Culture, Received Pending 05/24/17 Blood Culture, Received Pending Diagnostic Radiology CXR IMPRESSION: 1. Progressive interstitial thickening, consistent with either progressive interstitial lung disease or superimposed mild congestive failure 2. Subtle airspace opacity within the right midlung zone laterally versus summation artifact. Radiographic follow-up is recommended. Impression - H&P Impression Assessment and Plan ACUTE ON CHRONIC HYPOXIC, HYPERCAPNIC RESPIRATORY FAILURE VOLUME OVERLOAD IN THE SETTING OF CKD STAGE IV, ACUTE ON CHRONIC SYSTOLIC AND DIASTOLIC CHF COPD - admit to tele - patient presenting with increasing shortness of breath, orthopnea, lower extremity edema, and abdominal distention x 2 weeks; in the ED, patient was hypoxic on his chronic 2L and CXR suggestive of CHF - oxygen saturations improved with 4L via mask - ABG obtained that showed a respiratory acidosis (pH 7.31, CO2 62, O2, 82, HCO3 30) - will place patient on BiPap, reassess and repeat ABG - case discussed with Dr. Henderson - will diuresis with Lasix 80mg TID; patient has declined dialysis in the past but is now considering - recent baseline creats running low 3's - 3.5; noted to be 3.68 today - chambers placed for strict I/Os, daily weights, low Na+ diet (NPO while on BiPap) - do not suspect COPD exacerbation or pneumonia - no worsening cough or sputum production, no wheezing on exam, afebrile, no leukocytosis - continue home inhalers; add on nebs - update echo (echo 2011 - EF - 35-40%, grade II diastolic dysfunction) - cycle cardiac enzymes - cardio consult, input appreciated CAD - no reports of chest pain, EKG without acute ST changes - continue ASA, Plavix, beta kelly, and statin PAROXYSMAL ATRIAL FIBRILLATION - rate controlled on Digoxin and metoprolol - not anticoagulated due to history of hematuria while on Coumadin DM - hgb a1c 7.2 03/2017 - glucose 147 on labs; holding Lantus while NPO - utilize SSI and add Lantus back once taking PO BPH - nursing unable to place chambers (chambers needed with aggressive diuresis) - urology consulted for chambers placement - case discussed with STAR Brasher - continue tamsulosin and finasteride DVT PROPHYLAXIS - SQ Heparin CODE STATUS - Patient is a full code as per my discussion with him. DISPO - In my clinical judgment this beneficiary meets acute admission criteria, established by [facility], that includes being hospitalized through two midnights. - PT/OT, case management; may need short term rehab stay post hospital ADDENDUM: I have seen and examined the patient and agree with the assessment above. Hypercapnia and hypoxia both present in setting of obesity and acute volume overload. Agree with BIPAP overnight to aid ventilation and improve hypercapnia. Simultaneous efforts with Lasix with 3L diuresis in just a few hours. 900 cc return when Chambers placed indicating some urinary retention. Nephro writing diuretic orders in setting of CKD Stage 4. Recent orthopnea, PND , LE swelling noted by patient with breathing worsening in the last two days. Admits to high salt intake as lives alone. Good air movement on exam and no distress or air hunger present on small amount of supplemental oxygen initially. 2+pitting edema in lower extremities and otherwise physical unremarkable aside from obesity. Cards also consulted as pt is known to them. BIPAP overnight with repeat ABG in am. Camilo, Level of Care Telemetry Resuscitation Status FULL RESUSCITATION VTE Prophylaxis VTE Risk Assessment Done? Y/N: Yes Risk Level: Moderate Given or contraindicated: Unfractionated heparin SQ Physical Exam (per Admitting): General Appearance: WD/WN, no apparent distress, + obese Head: normocephalic, atraumatic Eyes: normal inspection, EOMI, sclerae normal ENT: hearing grossly normal, + pertinent finding (musous membranes moist) Neck: supple, no JVD, trachea midline Respiratory/Chest: no respiratory distress, + decreased breath sounds (BL bases) Cardiovascular: regular rate, rhythm, normal peripheral pulses, + pertinent finding (+2 edema BLLE) Abdomen/GI: normal bowel sounds, non tender, soft, no organomegaly Extremities/Musculoskelatal: normal inspection, no calf tenderness, normal capillary refill Neurologic/Psych: no motor/sensory deficits, alert, normal mood/affect, oriented x 3 Skin: normal color, warm/dry Hospital Course ACUTE ON CHRONIC HYPOXIC, HYPERCAPNIC RESPIRATORY FAILURE Chronic hypoxic respiratory failure on home O2 due to COPD. Complicated by CHF,Sleep Apnea and interstitial lung disease Titrate supplemental oxygen as necessary. BiPAP as necessary for ventilatory support- needs encouragement. On Bronchodilators and Steroid inhalers Appreciate Pulmonary Input Advised to use BIPAP -not being using as advised Medically stable without much improvement of his general condition Clinically much better Continue with physical therapy Likely to go to [facility] Updated PT evaluation-will need to go to Rehab Awaiting approval to go to [facility] ACUTE ON CHRONIC CHF History of left ventricular systolic heart failure with EF of 35-40 percent, left ventricular diastolic heart failure, probable right-sided heart failure. Echocardiogram demonstrated mild concentric LVH, inferior and inferolateral wall motion abnormalities, overall LVEF 35 -40%, mild tricuspid regurgitation, grade II diastolic dysfunction, mild aortic valve sclerosis without stenosis, no apparent pulmonary hypertension. Received IV furosemide Titration of furosemide per Nephrology- furosemide being restarted today. No NICO or ARB due to CKD. Continue Lasix 60mg BID for now Renal function remains stable ~3.5 NO SOB AT REST Remains reasonably stable without any significant symptoms Urinary Retention with UTI -received 10 days course of Ampicillin Was seen by Urology Required Chambers placement X2 Will D/C Chambers as per patient request Requiring Chambers -will keep in for ~7to 10 days will need OP appointment with the Urologist CORONARY ARTERY DISEASE No chest pain. Cardiac markers negative. Continue aspirin, clopidogrel, metoprolol, statin. PAROXYSMAL ATRIAL FIB Continue digoxin and metoprolol. No anticoagulation due to history of GI bleeding. 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 Unable to find any documented sleep studies. Check nocturnal oximetry prior to discharge. Probably needs CPAP or BiPAP at home, but may be unwilling and not been using it . OP Sleep study Has not been keeping BIPAP at night -stressed the importance to keep BICAP on at NIGHT PULMONARY NODULES Noted on previous CT imaging as far back as 2011. PET scan 04/06/16: bilat pulmonary granulomata bilat noncalcified pulmonary nodules, no appreciable FDG activity CT 05/27/17- stable findings compared to 2012. DIABETES MELLITUS TYPE 2 Well-controlled. Hemoglobin A1c 7.2 in clinic last month. FBS = 155. Continue Lantus/NovoLog per protocol. CKD IV + ACUTE KIDNEY INJURY Baseline serum creatinine 3.5. Serum creatinine 3.68 upon admission. Nephrology consulted-appreciate Input Titration of furosemide per Nephrology. Avoid potential nephrotoxins when able. Creatinine stable -appreciate Nephrology input HYPERTENSION Continue metoprolol succinate Follow and titrate Rx. BPH Chambers inserted by Urology. Chambers discontinued Requiring too much Straight caths PRN. Continue finasteride and tamsulosin. Will reinsert Chambers and OP Urology appointment HEMATURIA Gross hematuria noted after Chambers catheter insertion. May eventually need cystoscopy. Stopped GENERAL DEBILITATION PT / OT evals. VTE PROPHYLAXIS SQ heparin. Ambulate as able. DISPOSITION To be determined. Probably needs skilled care or rehab, but reluctant. PT / OT evals. Case Management following. Family Medicine follow-up with and Dr. aKm Dickey. . Consultants: Pulmonary Cardiology Nephrology Urology . Procedures: Cardiac monitoring Intravenous medications CT abdomen and pelvis CT chest Venous duplex lower extremities Echocardiogram PT OT He understands the Medical conditions that he has He understands the risk of not complying with the medications and the recommendations He is AAOx3 He is competent to make his own decision as per my assessment. He was discharged home. Total time spent on discharge = 40 minutes This includes examination of the patient, discharge planning, medication reconciliation, and communication with other providers. Discharge Instructions Date of Service Jun 05, 2017. Admission Reason for Admission: Volume Overload Discharge Discharge Diagnosis / Problem: Acute on Chronic Respiratory failure on home oxygen ,Acute on Chr CHF,CKD Discharge Goals Goal(s): Prevent Disease Progression Activity Recommendations Activity Limitations: resume your previous activity (Take precaution to avoid fall) . Instructions / Follow-Up Instructions / Follow-Up Dr Dickey on 06/12/17 at 10:55AM ,Keep appointment with Urologist Current Hospital Diet Patient's current hospital diet: AHA Diet (Heart Healthy), Low Sodium Diet (2gm Na), Diabetes Type 2 Diet, Renal Diet Discharge Diet Recommended Diet: AHA Diet (Heart Healthy), Low Sodium Diet (2gm Na) Fluid Restriction: 1500 ml (6 cups) Pending Studies Studies pending at discharge: no Medical Emergencies . Who to Call and When: Medical Emergencies: If at any time you feel your situation is an emergency, please call 911 immediately. . Non-Emergent Contact Non-Emergency issues call your: Primary Care Provider . Past History Medical & Surgical History: (1) HTN (hypertension) (2) COPD (chronic obstructive pulmonary disease) (3) CAD (coronary artery disease) (4) Chronic hypoxemic respiratory failure (5) Pulmonary nodules (6) CKD (chronic kidney disease), stage IV (7) Systolic and diastolic CHF, chronic (8) Atrial fibrillation (9) DM2 (diabetes mellitus, type 2) (10) HLD (hyperlipidemia) (11) Renal failure (12) s/p laser vaporization of prostate 11/01/11 (13) Transurethral prostatectomy (14) H/O hernia repair . "Provider Documentation" section prepared by Basilio Masters. . VTE Core Measure Inpt VTE Proph given/why not?: Unfractionated heparin SQ <Electronically signed by Basilio Masters M.D.> Additional Copies To Kam Dickey D.O.
== END 2017-06-05 16:37 | disposition home health service (06) | DRG 291 ==
LOC: C.EDB 10:10 → C.2T 13:11 → ENRESERV 13:41
PROVIDERS: ADMIT Hospitalist; ATTEND Internal Medicine
DX: I13.0 Hypertensive heart and chronic kidney disease with heart failure and stage 1 through stage 4 chronic kidney disease, or unspecified chronic kidney disease (principal); J96.22 Acute and chronic respiratory failure with hypercapnia; J96.21 Acute and chronic respiratory failure with hypoxia; I50.43 Acute on chronic combined systolic (congestive) and diastolic (congestive) heart failure; N18.4 Chronic kidney disease, stage 4 (severe); T83.86XA Thrombosis due to genitourinary prosthetic devices, implants and grafts, initial encounter; E66.2 Morbid (severe) obesity with alveolar hypoventilation; Z82.49 Family history of ischemic heart disease and other diseases of the circulatory system; Z87.891 Personal history of nicotine dependence; Z79.82 Long term (current) use of aspirin; Z79.4 Long term (current) use of insulin; Z99.81 Dependence on supplemental oxygen; J44.9 Chronic obstructive pulmonary disease, unspecified; I48.0 Paroxysmal atrial fibrillation; E11.9 Type 2 diabetes mellitus without complications; E87.70 Fluid overload, unspecified; Z95.5 Presence of coronary angioplasty implant and graft; I25.2 Old myocardial infarction; E78.5 Hyperlipidemia, unspecified; R91.1 Solitary pulmonary nodule; Y84.6 Urinary catheterization as the cause of abnormal reaction of the patient, or of later complication, without mention of misadventure at the time of the procedure

== ENCOUNTER 2017-07-16 17:52 | Inpatient (IN) | payer OTHER ==
[~2017-07-16] VITALS: Ht 185.4 cm; Wt 125.9 kg
[~2017-07-16 17:52] MED LIST changes: +ADVIN25/60 INH; +ALBU18002 INH; -FLAX12003 PO; +ISR5 PO; -LICORICE PO; +NRN/300 PO; -POTA1CAP2 PO
[2017-07-16] MEDS ORDERED: SODIUM CHLORIDE 0.9% 1000ML 1,000 ML IV STA ×2 (18:08)
--- NOTE | 2017-07-16 18:37 | DIAGNOSTIC IMAGING REPORT ---
CHEST ONE VIEW PORTABLE CLINICAL HISTORY: 87 years-old Male presenting with EVALUATE WEAKNESS. TECHNIQUE: Portable upright AP view of the chest was obtained. COMPARISON: 05/24/2017. FINDINGS: Atherosclerosis of aortic arch. Cardiac silhouette enlargement, unchanged. Pulmonary vasculature less prominent than on prior exam. Hazy perihilar opacities. Multifocal calcified granulomas noted bilaterally. No large pleural effusion or pneumothorax. Degenerative changes of the thoracic spine. Upper abdomen normal. IMPRESSION: 1. Vague perihilar opacities could suggest early pulmonary edema though these changes are less pronounced than on prior exam. 2. Cardiomegaly 3. Old granulomatous disease.. Electronically signed by: Marcello Cullen M.D. 07/16/2017 6:35 PM Dictated Date/Time: 07/16/2017 6:33 PM
--- NOTE | 2017-07-16 19:07 | EMERGENCY ROOM VISIT NOTE ---
History Report prepared by Jacquie: Sapphire Morin Under the Supervision of: Dr. Kyler Reyes M.D. First contact with patient: 18:05 Chief Complaint: PAIN (GENERALIZED) Stated Complaint: PAIN GENERALIZED History of Present Illness The patient is an 87 year old male who presents to the Emergency Room with complaints of persistent generalized pain that began a few days ago. The patient rates his discomfort as a 10 out of 10 in severity. The patient's son states he normally checks on his father several times a day, noting the patient lives alone and has nurses taking care of him daily. The patient's son states that the patient has recently been too weak, not eating, and not taking his medications. The patient has been vomiting, dizzy, and experiencing lower abdominal pain. The patient's son notes that the patient is diabetic and currently in kidney failure, noting he won't go to dialysis. The patient's son states that his father fell 2 days ago, noting he didn't seem to hurt himself. The patient has a history of hypertension and takes blood pressure medication. The patient's HPI is limited due to his altered mental status. Pt denies LOC, headache, fevers, chills, diaphoresis, visual changes, neck pain , chest pain, breathing difficulties, nausea, back pain, urinary symptoms, numbness, lymphadenopathy, rash, or other complaints. Source of History: patient Onset: several days ago Position: other (global) Quality: other (generalized pain) Timing: other (persistent) Associated Symptoms: + vomiting, + abdominal pain, No headache, No neck pain , No chest pain, No back pain Review of Systems See HPI for pertinent positives and negatives. A total of ten systems were reviewed and were otherwise negative. The patient's HPI is limited due to his altered mental status. 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, chronic Surgical Problems: (1) H/O hernia repair (2) s/p laser vaporization of prostate 11/01/11 (3) Transurethral prostatectomy Family History Heart disease Social History Smoking Status: Former Smoker Smokeless Tobacco Use: Unknown Drug Use: none Marital Status: Housing Status: lives alone Occupation Status: retired Current/Historical Medications Scheduled Aspirin (Aspirin Ec), 81 MG PO QAM Clopidogrel (Plavix), 75 MG PO QAM Digoxin (Digoxin), 0.125 MG PO 2XWK Finasteride (Proscar), 5 MG PO HS Fish Oil (Verona-3), 1 CAP PO HS Fluticasone Prop/Salmeterol (Advair Diskus 250/50 60 Dose), 1 PUFF INH BID Furosemide (Furosemide), 80 MG PO BID Gabapentin (Neurontin), 300 MG PO HS Home O2 Therapy (Oxygen), 2 LITERS NA CONTINOUS Insulin Glargine (Lantus), 50 UNITS SC UD Isosorbide Dinitrate (Isosorbide Dinitrate), 5 MG PO TID@0700,1200,1700 Metoprolol Succ (Toprol Xl) (Toprol-Xl ), 100 MG PO DAILY Simvastatin (Simvastatin), 40 MG PO QPM Tamsulosin HCl (Tamsulosin HCl), 0.4 MG PO HS Scheduled PRN Albuterol Sulfate (Proair Respiclick), 2 PUFFS INH Q4H PRN for SOB/Wheezing Nitroglycerin (Nitrostat), 0.4 MG UT UD PRN for Chest Pain Allergies Coded Allergies: Iodine (Verified Allergy, Mild, HIVES, 07/16/17) Heparin (Verified Allergy, Unknown, ., 07/16/17) Sulfa Antibiotics (Verified Allergy, Unknown, ENTERED SULFA- UNKNOWN, 07/16/17) Physical Exam Vital Signs Date Time Temp Pulse Resp B/P (MAP) Pulse Ox O2 Delivery O2 Flow Rate FiO2 07/16/17 20:47 103 18 118/78 100 Nasal Cannula 2.0 07/16/17 20:02 Room Air 07/16/17 20:02 98 21 114/56 99 Nasal Cannula 3.0 07/16/17 18:14 105 14 102/74 98 Nasal Cannula 3.0 07/16/17 17:58 112 24 87/59 Physical Exam GENERAL: Awake, alert, lethargic-appearing, in no distress HENT: Normocephalic, atraumatic. Oropharynx unremarkable. EYES: Normal conjunctiva. Sclera non-icteric. NECK: Supple. No nuchal rigidity. FROM. No JVD. RESPIRATORY: Clear to auscultation. CARDIAC: Tachycardic rate, normal rhythm. Extremities warm and well perfused. Pulses equal. ABDOMEN: Bilateral lower and right upper mild tenderness. Soft, non- distended.No rebound or guarding. No masses. RECTAL: Deferred. MUSCULOSKELETAL: Chest examination reveals no tenderness. There is no CVA tenderness to palpation. No joint edema. LOWER EXTREMITIES: Calves are equal size bilaterally and non-tender. No edema. No discoloration. NEURO: Altered sensorium. No sensory or motor deficits noted. SKIN: Tenting of skin. No rash or jaundice noted. Medical Decision & Procedures ER Provider Diagnostic Interpretation: Radiology results as stated below per my review and radiologist interpretation: CHEST ONE VIEW PORTABLE CLINICAL HISTORY: 87 years-old Male presenting with EVALUATE WEAKNESS. TECHNIQUE: Portable upright AP view of the chest was obtained. COMPARISON: 05/24/2017. FINDINGS: Atherosclerosis of aortic arch. Cardiac silhouette enlargement, unchanged. Pulmonary vasculature less prominent than on prior exam. Hazy perihilar opacities. Multifocal calcified granulomas noted bilaterally. No large pleural effusion or pneumothorax. Degenerative changes of the thoracic spine. Upper abdomen normal. IMPRESSION: 1. Vague perihilar opacities could suggest early pulmonary edema though these changes are less pronounced than on prior exam. 2. Cardiomegaly 3. Old granulomatous disease.. Electronically signed by: Marcello Cullen M.D. 07/16/2017 6:35 P ABD/PELVIS NO IV OR ORAL CONT CLINICAL HISTORY: 87 years-old Male presenting with Vomiting, bilateral lower and RUQ pain, h/o CRF. TECHNIQUE: Multidetector CT of the abdomen and pelvis was performed without the use of intravenous contrast. IV contrast: None. A dose lowering technique was used consistent with the principles of ALARA (as low as reasonably achievable). COMPARISON: 05/26/2017. CT DOSE (mGy.cm): The estimated cumulative dose is 1484.60 mGy.cm. FINDINGS: Occupational Health Coordinator topogram: Unremarkable. Lung bases: Multiple calcifications in the dependent distribution with associated reticulation and subpleural cystic change. Bronchial wall thickening and minimal debris in subsegmental airways noted in a dependent distribution. Multichamber enlargement of the heart. Coronary artery calcification. Few calcified or soft lymph nodes noted. No pericardial or pleural effusion. Liver: Normal morphology. Normal density. Biliary: No gross biliary ductal dilatation allowing for noncontrast technique. Gallbladder contains gallstones. Pancreas: Mild parenchymal atrophy. Spleen: Normal noncontrast appearance. Splenule noted. Adrenal glands: Nodular thickening of the left adrenal gland, nonspecific. Right adrenal gland diminutive. Kidneys and ureters: Dilated right renal collecting system with abrupt caliber change at the ureteropelvic junction. No left hydronephrosis. Multiple hypodensities noted in the kidneys bilaterally of indeterminate but likely cysts. Nonobstructing 7 mm calculus in the interpolar region of the right kidney punctate nonobstructing calculus at the lower pole the left kidney. Ureters normal. Bladder: Circumferential bladder wall thickening with multiple small diverticula noted as well as a dominant diverticula at the dome. Pelvic organs: Prostate enlargement likely secondary to benign prostatic hyperplasia. Bowel: Diverticulosis of the descending and sigmoid colon. Mild pericolonic fat stranding suggested adjacent to the bladder dome. It is unclear if this emanates from the bladder from the colon (series 3 image 214). No significant colonic wall thickening. The appendix is normal. No bowel obstruction. Peritoneal cavity: No free fluid or intraperitoneal gas. Lymph nodes: No gross lymphadenopathy allowing for noncontrast technique. Vasculature: Atherosclerosis of the normal caliber abdominal aorta. Minimal irregularity of the infrarenal abdominal aorta just proximal to the bifurcation (series 3 image 240). Abdominal wall: Small fat-containing umbilical hernia. Musculoskeletal: Degenerative changes of the spine. Partial osseous fusion across the sacroiliac joints asymmetrically affecting the right joint greater than the left. IMPRESSION: 1. Diverticulosis. Mild pericolonic fat stranding adjacent to the bladder dome. It is unclear if this emanates from the bladder or from the colon. No significant colonic wall thickening. These findings are somewhat equivocal for mild acute diverticulitis. The primary differential consideration is cystitis given the presence of associated bladder wall thickening. Correlate with urinalysis. Alternatively, bladder wall thickening could be due to chronic outlet obstruction in the setting of enlarged prostate. 2. Calcification, dependent opacities, and cystic change at the lung bases in a dependent distribution. This could represent chronic aspiration, especially given the presence of multifocal subsegmental bronchial debris in this distribution. 3. Cardiomegaly. 4. Bilateral nephrolithiasis. 5. Corrected right ureteropelvic junction obstruction. No obstructing calculus or mass. This is unchanged from prior exam. Electronically signed by: Marcello Cullen M.D. 07/16/2017 9:13 PM Laboratory Results Test 07/16/17 18:46 07/16/17 20:15 07/16/17 20:17 07/16/17 21:05 RDW Standard Deviation 44.4 fL (36.4-46.3) RDW Coefficient of Variation 13.7 % (11.5-14.5) White Blood Count 12.42 K/uL (4.8-10.8) Red Blood Count 4.88 M/uL (4.7-6.1) Hemoglobin 14.8 g/dL (14.0-18.0) Hematocrit 42.9 % (42-52) Mean Corpuscular Volume 87.9 fL (80-100) Mean Corpuscular Hemoglobin 30.3 pg (25-34) Mean Corpuscular Hemoglobin Concent 34.5 g/dl (32-36) Platelet Count 199 K/uL (130-400) Mean Platelet Volume 11.2 fL (7.4-10.4) Neutrophils (%) (Auto) 88.7 % Lymphocytes (%) (Auto) 4.7 % Monocytes (%) (Auto) 5.6 % Eosinophils (%) (Auto) 0.5 % Basophils (%) (Auto) 0.1 % Neutrophils # (Auto) 11.02 K/uL (1.4-6.5) Lymphocytes # (Auto) 0.58 K/uL (1.2-3.4) Monocytes # (Auto) 0.70 K/uL (0.11-0.59) Eosinophils # (Auto) 0.06 K/uL (0-0.5) Basophils # (Auto) 0.01 K/uL (0-0.2) Immature Granulocyte % (Auto) 0.4 % Immature Granulocyte # (Auto) 0.05 K/uL (0.00-0.02) Prothrombin Time 10.2 SECONDS (9.0-12.0) Prothromb Time International Ratio 1.0 (0.9-1.1) Activated Partial Thromboplast Time 26.8 SECONDS (21.0-31.0) Partial Thromboplastin Ratio 1.0 Est Creatinine Clear Calc Drug Dose 11.7 ml/min Magnesium Level 3.5 mg/dl (1.8-2.4) Total Bilirubin 0.4 mg/dl (0.2-1) Direct Bilirubin < 0.1 mg/dl (0-0.2) Aspartate Amino Transf (AST/SGOT) 8 U/L (15-37) Alanine Aminotransferase (ALT/SGPT) 17 U/L (12-78) Alkaline Phosphatase 88 U/L (45-117) Total Creatine Kinase 30 U/L (39-308) Creatine Kinase MB 2.2 ng/ml (0.5-3.6) Creatine Kinase MB Ratio 7.3 (0-3.0) Troponin I 0.023 ng/ml (0-0.045) Total Protein 9.1 gm/dl (6.4-8.2) Albumin 3.6 gm/dl (3.4-5.0) Lipase 2153 U/L (73-393) Thyroid Stimulating Hormone (TSH) 0.955 uIu/ml (0.300-4.500) Bedside Lactic Acid Venous 1.01 mmol/L (0.90-1.70) Bedside Hemoglobin 12.9 g/dl (14.0-18.0) Bedside Hematocrit 38 % (42-52) Bedside Sodium 131 mEq/L (135-144) Bedside Potassium 7.3 mEq/L (3.3-5.0) Bedside Chloride 107 mEq/L (101-112) Bedside Total CO2 17 mEq/l (24-31) Bedside Blood Urea Nitrogen > 140 mg/dl (7-18) Bedside Creatinine 6.0 mg/dl (0.6-1.3) Bedside Glucose (other) 218 mg/dl (70-99) Bedside Ionized Calcium (Germán) 1.21 mmol/l (1.12-1.32) Urine Color YELLOW Urine Appearance TURBID (CLEAR) Urine pH 5.0 (4.5-7.5) Urine Specific Tinnie 1.016 (1.000-1.030) Urine Protein 1+ (NEG) Urine Glucose (UA) NEG (NEG) Urine Ketones NEG (NEG) Urine Occult Blood 3+ (NEG) Urine Nitrite NEG (NEG) Urine Bilirubin NEG (NEG) Urine Urobilinogen NEG (NEG) Urine Leukocyte Esterase LARGE (NEG) Urine WBC (Auto) >30 /hpf (0-5) Urine RBC (Auto) 10-30 /hpf (0-4) Urine Hyaline Casts (Auto) 0 /lpf (0-5) Urine Epithelial Cells (Auto) 10-20 /lpf (0-5) Urine Bacteria (Auto) NEG (NEG) Urine Pathogenic Casts /lpf (0) Laboratory results reviewed by me Medications Administered Medications (Trade) Dose Ordered Sig/Ronak Route Start Time Stop Time Status Last Admin Dose Admin Sodium Chloride 1,000 ml @ 125 mls/hr Q8H STAT IV 07/16/17 18:08 07/16/17 23:01 DC 07/16/17 18:08 125 MLS/HR Sodium Chloride 1,000 ml @ 999 mls/hr Q1H1M STAT IV 07/16/17 18:08 07/16/17 19:08 DC 07/16/17 18:08 999 MLS/HR Calcium Gluconate (Calcium Gluconate 10%) 1,000 mg NOW STAT IV 07/16/17 20:33 07/16/17 20:35 DC 07/16/17 20:40 1,000 MG Insulin Human Regular (novoLIN-R U-100 PER UNIT) 10 units NOW STAT IV 07/16/17 20:33 07/16/17 20:35 DC 07/16/17 20:33 10 UNITS Dextrose (Dextrose 50% 50ML Syringe) 50 ml NOW STAT IV 07/16/17 20:33 07/16/17 20:35 DC 07/16/17 20:42 50 ML Sodium Bicarbonate (Sodium Bicarbonate 8.4% Inj) 50 ml NOW STAT IV 07/16/17 20:33 07/16/17 20:35 DC 07/16/17 20:40 50 ML ECG Indication: other (generalized pain) Rate (beats per minute): 102 Rhythm: sinus tachycardia Findings: LBBB, left axis deviation ED Course 1804: The patient was evaluated in room B5. A complete history and physical exam was performed. 1807: Ordered sodium Chloride 1000ml @125mls/hr IV. 1855: I reevaluated the patient who was resting comfortably. The patient was stable and receiving fluids. I updated him and his family on the test results. Repeating his potassium. 2032: Ordered Sodium Bicarbonate 50ml IV, Dextrose 50ml IV, Insulin Human Regular 10 units IV, and Calcium Gluconate 1000 mg IV. 2049: I reevaluated the patient and updated hi and his family on the test results. 2056: Discussed the patient's case with Sydney Fields. The patient will be evaluated for further treatment and disposition. Medical Decision Triage Nursing notes reviewed. The patient's presentation and history were concerning for weakness, abdominal pain, lethargy, and not taking his medications. Etiologies such as dehydration, renal failure, infection, hypoglycemia, electrolyte abnormalities, cardiac sources, intracerebral event, toxicologic, neurologic, diverticulitis, colitis, appendicitis, biliary pathology, pancreatitis as well as others were entertained. The patient was evaluated. Clinically he looked dry. He was tachycardic. He had tenting of the skin. He had tenderness in the lower abdomen as well as right upper quadrant. Blood work was ordered. Chest imaging, ECG, and abdominal CT imaging ordered. The patient was hydrated. His initial vital signs were concerning for mild hypotension and tachycardia. The hypotension and tachycardia improved with fluid administration. The patient underwent CT imaging of his abdomen and was found to have significant bladder distention. A Wallace catheter was ordered. The patient was unable to provide a urine sample voluntarily. Blood work was concerning for mild leukocytosis. The patient was found to be in acute renal failure and had hyperkalemia. He also had hypomagnesemia. In addition to the IV fluids the patient received a Wallace catheter. A urinalysis was sent for microscopy and culture. The patient had also been given calcium, insulin, glucose, and bicarbonate to treat the hyperkalemia. On reassessment the patient was feeling better and he clinically looked better. His lipase also returned abnormal, concerning for pancreatitis. At that point consultation was placed with internal medicine. Urinalysis was still pending. The patient was evaluated by internal medicine in the emergency department for further treatment. Urinalysis was concerning for infection as well as the CT official report. Internal medicine had ordered IV ertapenem. Medication Reconcilliation Current Medication List: was personally reviewed by me Blood Pressure Screening Patient's blood pressure: Elevated blood pressure Blood pressure disposition: Referred to PCP (hospitalist) Consults Time Called: 2054 Consulting Physician: Sydney White Returned Call: 2056 Discussed the patient's case. The patient will be evaluated for further treatment and disposition. Impression Primary Impression: Renal failure Additional Impressions: Pancreatitis Hyperkalemia Hypermagnesemia Dehydration UTI (urinary tract infection) Urinary retention Critical Care I have personally spent greater than 30 minutes of critical care time in the direct management of this patient. This includes bedside care, interpretation of diagnostic studies, and testing, discussion with consultants, patient, and family members, and other required patient management activities. This 30 minutes is in excess of all separately billable procedures. Scribe Attestation The scribe's documentation has been prepared under my direction and personally reviewed by me in its entirety. I confirm that the note above accurately reflects all work, treatment, procedures, and medical decision making performed by me. Departure Information Dispostion Being Evaluated By Hospitalist Prescriptions Metoprolol Succ (Toprol Xl) (Toprol-Xl ) 100 Mg Tabcr 100 MG PO DAILY, #30 Prov: Siddhartha Mendoza MD 07/16/17 Referrals No Doctor, Assigned (PCP) Forms HOME CARE DOCUMENTATION FORM, IMPORTANT VISIT INFORMATION, WORK / SCHOOL INSTRUCTIONS Patient Instructions My [facility] Problem Qualifiers
[2017-07-16 19:21] LABS: BASO % 0.1 %; BASO ABS # 0.01 K/uL (0-0.2); EOS % 0.5 %; EOS ABS # 0.06 K/uL (0-0.5); HEMATOCRIT 42.9 % (42-52); HEMOGLOBIN 14.8 g/dL (14.0-18.0); IG# 0.05 K/uL (0.00-0.02); LYMPH % 4.7 %; LYMPH ABS # 0.58 K/uL (1.2-3.4); MEAN CELL VOLUME 87.9 fL (80-100); MEAN CORPUSCULAR HEMOGLOBIN 30.3 pg (25-34); MEAN CORPUSCULAR HGB CONC 34.5 g/dl (32-36); MEAN PLATELET VOLUME 11.2 fL (7.4-10.4); MONO % 5.6 %; NEUT % 88.7 %; NEUT ABS # 11.02 K/uL (1.4-6.5); PLATELET COUNT 199 K/uL (130-400); RED CELL DISTRIBUTION WIDTH CV 13.7 % (11.5-14.5); RED CELL DISTRIBUTION WIDTH SD 44.4 fL (36.4-46.3); WHITE BLOOD COUNT 12.42 K/uL (4.8-10.8)
[2017-07-16 19:28] LABS: PTT PATIENT 26.8 SECONDS (21.0-31.0)
[2017-07-16 19:47] LABS: ALBUMIN 3.6 gm/dl (3.4-5.0); ALKALINE PHOSPHATASE 88 U/L (45-117); ALT/SGPT 17 U/L (12-78); AST/SGOT 8 U/L (15-37); BLOOD UREA NITROGEN 189 mg/dl (7-18); CALCIUM 9.5 mg/dl (8.5-10.1); CARBON DIOXIDE 17 mmol/L (21-32); CKMB 2.2 ng/ml (0.5-3.6); CREATININE 6.25 mg/dl (0.60-1.40); GLUCOSE 206 mg/dl (70-99); LIPASE 2153 U/L (73-393); SODIUM 127 mmol/L (136-145); TOTAL PROTEIN 9.1 gm/dl (6.4-8.2)
[2017-07-16 19:48] LABS: POTASSIUM 6.9 mmol/L (3.5-5.1)
[2017-07-16] MEDS ORDERED: SODIUM BICARB 8.4% INJ 50 MEQ/50 ML SYR IV STA (20:33)
[2017-07-16] MEDS ORDERED: DEXTROSE 50% 50 ML SYR IV STA (20:33)
[2017-07-16] MEDS ORDERED: NovoLIN-R INSULIN PER UNIT CHARGE IV STA (20:33)
[2017-07-16] MEDS ORDERED: CALCIUM GLUCONATE 10% 10 ML VIAL IV STA (20:33)
[2017-07-16 20:58] LABS: ISTAT IONIZED CALCIUM 1.21 mmol/l (1.12-1.32); ISTAT POTASSIUM 7.3 mEq/L (3.3-5.0); ISTAT SODIUM 131 mEq/L (135-144)
--- NOTE | 2017-07-16 21:14 | DIAGNOSTIC IMAGING REPORT ---
ABD/PELVIS NO IV OR ORAL CONT CLINICAL HISTORY: 87 years-old Male presenting with Vomiting, bilateral lower and RUQ pain, h/o CRF. TECHNIQUE: Multidetector CT of the abdomen and pelvis was performed without the use of intravenous contrast. IV contrast: None. A dose lowering technique was used consistent with the principles of ALARA (as low as reasonably achievable). COMPARISON: 05/26/2017. CT DOSE (mGy.cm): The estimated cumulative dose is 1484.60 mGy.cm. FINDINGS: Furnace Room Supervisor topogram: Unremarkable. Lung bases: Multiple calcifications in the dependent distribution with associated reticulation and subpleural cystic change. Bronchial wall thickening and minimal debris in subsegmental airways noted in a dependent distribution. Multichamber enlargement of the heart. Coronary artery calcification. Few calcified or soft lymph nodes noted. No pericardial or pleural effusion. Liver: Normal morphology. Normal density. Biliary: No gross biliary ductal dilatation allowing for noncontrast technique. Gallbladder contains gallstones. Pancreas: Mild parenchymal atrophy. Spleen: Normal noncontrast appearance. Splenule noted. Adrenal glands: Nodular thickening of the left adrenal gland, nonspecific. Right adrenal gland diminutive. Kidneys and ureters: Dilated right renal collecting system with abrupt caliber change at the ureteropelvic junction. No left hydronephrosis. Multiple hypodensities noted in the kidneys bilaterally of indeterminate but likely cysts. Nonobstructing 7 mm calculus in the interpolar region of the right kidney punctate nonobstructing calculus at the lower pole the left kidney. Ureters normal. Bladder: Circumferential bladder wall thickening with multiple small diverticula noted as well as a dominant diverticula at the dome. Pelvic organs: Prostate enlargement likely secondary to benign prostatic hyperplasia. Bowel: Diverticulosis of the descending and sigmoid colon. Mild pericolonic fat stranding suggested adjacent to the bladder dome. It is unclear if this emanates from the bladder from the colon (series 3 image 214). No significant colonic wall thickening. The appendix is normal. No bowel obstruction. Peritoneal cavity: No free fluid or intraperitoneal gas. Lymph nodes: No gross lymphadenopathy allowing for noncontrast technique. Vasculature: Atherosclerosis of the normal caliber abdominal aorta. Minimal irregularity of the infrarenal abdominal aorta just proximal to the bifurcation (series 3 image 240). Abdominal wall: Small fat-containing umbilical hernia. Musculoskeletal: Degenerative changes of the spine. Partial osseous fusion across the sacroiliac joints asymmetrically affecting the right joint greater than the left. IMPRESSION: 1. Diverticulosis. Mild pericolonic fat stranding adjacent to the bladder dome. It is unclear if this emanates from the bladder or from the colon. No significant colonic wall thickening. These findings are somewhat equivocal for mild acute diverticulitis. The primary differential consideration is cystitis given the presence of associated bladder wall thickening. Correlate with urinalysis. Alternatively, bladder wall thickening could be due to chronic outlet obstruction in the setting of enlarged prostate. 2. Calcification, dependent opacities, and cystic change at the lung bases in a dependent distribution. This could represent chronic aspiration, especially given the presence of multifocal subsegmental bronchial debris in this distribution. 3. Cardiomegaly. 4. Bilateral nephrolithiasis. 5. Corrected right ureteropelvic junction obstruction. No obstructing calculus or mass. This is unchanged from prior exam. Electronically signed by: Marcello Cullen M.D. 07/16/2017 9:13 PM Dictated Date/Time: 07/16/2017 9:02 PM
[2017-07-16] MEDS ORDERED: HYDROmorphone HCL 2 MG TAB PO PRN (21:45)
[2017-07-16] MEDS ORDERED: HEPARIN SOD 5000 UNIT/0.5 ML CARP SQ SCH (21:45)
[2017-07-16] MEDS ORDERED: ERTAPENEM IV 0.5 GM in SODIUM CHLOR 0.9% AD-VAN 50ML 50 ML IV SCH (21:45)
[2017-07-16] MEDS ORDERED: ALBUTEROL HFA 8 GM INHALER INH PRN (21:45)
[2017-07-16] MEDS ORDERED: NITROGLYCERIN 0.4 MG SL PER TAB CHARGE UT PRN (21:45)
[2017-07-16] MEDS ORDERED: METO100T44 PO (21:57)
[2017-07-16 22:30] VITALS: BP 102/74; PULSE 108; TEMP 36.4; O2SAT 96; Ht 185.4 cm; Wt 125.9 kg
--- NOTE | 2017-07-16 22:32 | Critical Care Consultation ---
Critical Care Consultation Date of Consultation: Jul 16, 2017. Attending Physician: Daysi Page DO Reason for Consultation: 87-year-old male with a significant past medical history of kidney disease who presents with an acute renal failure on chronic disease with hyperkalemia requiring close cardiovascular monitoring and electrolyte replacement and possible need for urgent/emergent hemodialysis. History of Present Illness Patient is an 87-year-old male with a significant past medical history of coronary artery disease, hypertension, hyperlipidemia, atrial fibrillation, congestive heart failure, diabetes, oxygen dependent COPD, and chronic kidney disease who presented to the emergency Department this evening with progressive weakness and fatigue. Patient also complains of some dizziness with changes in position. He had some vomiting as well as some complaints of lower abdominal pain. He sustained a fall 2 days ago secondary to this weakness, however no injury was sustained for the patient. He was recently admitted to this facility with volume overload and acute on chronic respiratory failure. At that point, there was discussion for hemodialysis for continued treatment of the patient's chronic illnesses, but he adamantly declined at that point. The patient eventually was discharged home with home services including home nursing. There was some discussion as to hospice care and the patient's outpatient records, however this was not verified with the patient. During evaluation today in the emergency department, he was found to have a slight leukocytosis. CT was concerning for cystitis and UTI per urinalysis. He is afebrile. Of concern, the patient has what appears to be in acute renal failure on chronic kidney disease. He was also found to have a potassium of 6.9. EKG did demonstrate a new left bundle branch block with no other acute findings. Cardiac enzymes were negative despite patient's renal failure. In the emergency setting, he received a 1 L bolus of normal saline for hypotension. In addition, he was provided 1 amp of bicarbonate, 1 amp of dextrose, 10 units of insulin, and calcium gluconate. At this point, the patient reports that he does wish to undergo hemodialysis of this as an option and once to be a full code as well. Upon my evaluation, the patient reports that he feels tired and dizzy with changes in position. He reports no overt pain at this time. He rates his current discomfort as 0/10. He denies any headaches, learning vision, chest pain, palpitations, worsening shortness of breath, hematemesis, hematochezia, abdominal pain, melena, hematuria, or dysuria. Patient is a former smoker. He lives alone, however he has family that checks in him several times a day and in-home per nursing services. Past Medical/Surgical History Medical Problems: (1) ARF (acute renal failure) (2) Atrial fibrillation (3) CAD (coronary artery disease) (4) Chronic hypoxemic respiratory failure (5) CKD (chronic kidney disease), stage IV (6) COPD (chronic obstructive pulmonary disease) (7) DM2 (diabetes mellitus, type 2) (8) HLD (hyperlipidemia) (9) HTN (hypertension) (10) Pulmonary nodules (11) Systolic and diastolic CHF, chronic Surgical Problems: (1) H/O hernia repair (2) s/p laser vaporization of prostate 11/01/11 (3) Transurethral prostatectomy Family History Heart disease Noncontributory Social History Smoking Status: Former Smoker Smokeless Tobacco Use: No Alcohol Use: none Drug Use: none Marital Status: Housing Status: lives alone Occupation Status: retired Allergies Coded Allergies: Iodine (Verified Allergy, Mild, HIVES, 07/16/17) Heparin (Verified Allergy, Unknown, ., 07/16/17) Sulfa Antibiotics (Verified Allergy, Unknown, ENTERED SULFA- UNKNOWN, 07/16/17) Home Medications Scheduled Aspirin (Aspirin Ec), 81 MG PO QAM Clopidogrel (Plavix), 75 MG PO QAM Digoxin (Digoxin), 0.125 MG PO 2XWK Finasteride (Proscar), 5 MG PO HS Fish Oil ([place]-3), 1 CAP PO HS Fluticasone Prop/Salmeterol (Advair Diskus 250/50 60 Dose), 1 PUFF INH BID Furosemide (Furosemide), 80 MG PO BID Gabapentin (Neurontin), 300 MG PO HS Home O2 Therapy (Oxygen), 2 LITERS NA CONTINOUS Insulin Glargine (Lantus), 50 UNITS SC BID Isosorbide Dinitrate (Isosorbide Dinitrate), 5 MG PO TID@0700,1200,1700 Metoprolol Succ (Toprol Xl) (Toprol-Xl ), 100 MG PO DAILY Simvastatin (Simvastatin), 40 MG PO QPM Tamsulosin HCl (Tamsulosin HCl), 0.4 MG PO HS Scheduled PRN Albuterol Sulfate (Proair Respiclick), 2 PUFFS INH Q4H PRN for SOB/Wheezing Nitroglycerin (Nitrostat), 0.4 MG UT UD PRN for Chest Pain Current Inpatient Medications Current Inpatient Medications Medications (Trade) Dose Ordered Sig/Ronak Route Start Time Stop Time Status Last Admin Dose Admin Sodium Chloride 1,000 ml @ 125 mls/hr Q8H STAT IV 07/16/17 18:08 07/17/17 02:07 07/16/17 18:08 125 MLS/HR Heparin Sodium (Porcine) (Heparin Sq 5000 Unit/0.5ml) 5,000 unit Q8H SQ 07/16/17 21:45 08/15/17 21:44 UNV Hydromorphone HCl (Dilaudid Tab) 0.5 mg Q4H PRN PO 07/16/17 21:45 07/30/17 21:44 UNV Aspirin (Ecotrin Tab) 81 mg QAM PO 07/17/17 09:00 08/16/17 08:59 UNV Clopidogrel Bisulfate (plAVix TAB) 75 mg QAM PO 07/17/17 09:00 08/16/17 08:59 UNV Finasteride (Proscar Tab) 5 mg HS PO 07/17/17 21:00 08/16/17 20:59 UNV Salmeterol Xinafoate/ Fluticasone (Advair Diskus 250/50 Inh) 1 puff BID INH 07/17/17 09:00 08/16/17 08:59 UNV Gabapentin (Neurontin Cap) 300 mg HS PO 07/17/17 21:00 08/16/17 20:59 UNV Isosorbide Dinitrate (Isordil Tab) 5 mg TID@0700,1200,1700 PO 07/17/17 07:00 08/16/17 06:59 UNV Nitroglycerin (Nitrostat Tab) 0.4 mg UD PRN UT 07/16/17 21:45 08/15/17 21:44 UNV Simvastatin (Zocor Tab) 40 mg QPM PO 07/17/17 21:00 08/16/17 20:59 UNV Tamsulosin HCl (Flomax Cap) 0.4 mg HS PO 07/17/17 21:00 08/16/17 20:59 UNV Non-Formulary Medication (Albuterol Sulfate (Proair Respiclick)) 2 puffs Q4H PRN INH 07/16/17 21:45 08/15/17 21:44 UNV Ertapenem 0.5 gm/ Sodium Chloride 50 ml @ 120 mls/hr Q24H IV 07/16/17 21:45 07/26/17 21:44 UNV Sodium Bicarbonate 150 meq/Sodium Chloride 1,150 ml @ 100 mls/hr [id number] IV 07/16/17 21:45 08/15/17 21:44 UNV Insulin Aspart (novoLOG ASPART) SLIDING SCALE G... ACHS SC 07/17/17 06:45 08/16/17 06:59 UNV Insulin Glargine (Lantus Solostar Pen) 25 units HS SC 07/17/17 21:00 08/16/17 20:59 UNV Metoprolol Succinate (Toprol Xl Tab) 100 mg DAILY PO 07/17/17 09:00 08/16/17 08:59 UNV Review of Systems A complete 10-point Review of Systems was discussed with the patient, with pertinent positives and negatives listed in the History of Present Illness. All remaining Review of Systems questions can be considered negative unless otherwise specified. Physical Exam Date Time Temp Pulse Resp B/P (MAP) Pulse Ox O2 Delivery O2 Flow Rate FiO2 07/16/17 22:13 108 18 107/84 100 07/16/17 20:47 103 18 118/78 100 Nasal Cannula 2.0 07/16/17 20:02 Room Air 07/16/17 20:02 98 21 114/56 99 Nasal Cannula 3.0 07/16/17 18:14 105 14 102/74 98 Nasal Cannula 3.0 07/16/17 17:58 112 24 87/59 VITAL SIGNS - Vital signs and nursing notes were reviewed. GENERAL - 87-year-old male appearing his stated age who is in no acute distress. Communicates well with provider and answers questions appropriately. SKIN - Without rashes. HEAD - NC/AT. EYES - PERRL with EOMI bilaterally. Sclera anicteric EARS - No deformities of external structures noted on gross examination bilaterally. NOSE - Midline and without cyanosis. No epistaxis or purulent drainage noted. MOUTH/OROPHARYNX - Without perioral cyanosis. Buccal mucosa pink and dry. Tongue midline with equal elevation of palate bilaterally. Edentulous. NECK - Neck with FROM. Supple to palpation. No lymphadenopathy noted. No nuchal rigidity. LUNGS - Chest wall symmetric without accessory muscle use, intercostals retractions, or central cyanosis. Normal vesicular breath sounds CTA B/L. No wheezes, rales, or rhonchi appreciated. CARDIAC - RRR with S1/S2. No murmur, rubs, or gallops appreciated. ABDOMEN - Abdominal contour obese without pulsations or visible masses. BS normoactive all four quadrants. No tenderness, palpable masses, hepatosplenomegaly, or ascites noted. EXTREMITIES - No clubbing or peripheral cyanosis. No pretibial edema present. +2 /5 radial and dorsalis pedis pulses palpated throughout. +5/5 strength noted in UE/LE bilaterally. NEUROLOGIC - Cranial nerves II through XII grossly intact. Sensory intact to light touch throughout. PSYCH - A&Ox3 and cooperates fully with examiner. Laboratory Results Last 24 Hours Test 07/16/17 18:46 07/16/17 20:15 07/16/17 20:17 07/16/17 21:05 White Blood Count 12.42 K/uL Red Blood Count 4.88 M/uL Hemoglobin 14.8 g/dL Hematocrit 42.9 % Mean Corpuscular Volume 87.9 fL Mean Corpuscular Hemoglobin 30.3 pg Mean Corpuscular Hemoglobin Concent 34.5 g/dl Platelet Count 199 K/uL Mean Platelet Volume 11.2 fL Neutrophils (%) (Auto) 88.7 % Lymphocytes (%) (Auto) 4.7 % Monocytes (%) (Auto) 5.6 % Eosinophils (%) (Auto) 0.5 % Basophils (%) (Auto) 0.1 % Neutrophils # (Auto) 11.02 K/uL Lymphocytes # (Auto) 0.58 K/uL Monocytes # (Auto) 0.70 K/uL Eosinophils # (Auto) 0.06 K/uL Basophils # (Auto) 0.01 K/uL RDW Standard Deviation 44.4 fL RDW Coefficient of Variation 13.7 % Immature Granulocyte % (Auto) 0.4 % Immature Granulocyte # (Auto) 0.05 K/uL Prothrombin Time 10.2 SECONDS Prothromb Time International Ratio 1.0 Activated Partial Thromboplast Time 26.8 SECONDS Partial Thromboplastin Ratio 1.0 Sodium Level 127 mmol/L Potassium Level 6.9 mmol/L Chloride Level 98 mmol/L Carbon Dioxide Level 17 mmol/L Anion Gap 12.0 mmol/L 15.0 mmol/L Blood Urea Nitrogen 189 mg/dl Creatinine 6.25 mg/dl Est Creatinine Clear Calc Drug Dose 11.7 ml/min Estimated GFR () 8.6 Estimated GFR (Non- 7.5 BUN/Creatinine Ratio 30.2 Random Glucose 206 mg/dl Calcium Level 9.5 mg/dl Magnesium Level 3.5 mg/dl Total Bilirubin 0.4 mg/dl Direct Bilirubin < 0.1 mg/dl Aspartate Amino Transf (AST/SGOT) 8 U/L Alanine Aminotransferase (ALT/SGPT) 17 U/L Alkaline Phosphatase 88 U/L Total Creatine Kinase 30 U/L Creatine Kinase MB 2.2 ng/ml Creatine Kinase MB Ratio 7.3 Troponin I 0.023 ng/ml Total Protein 9.1 gm/dl Albumin 3.6 gm/dl Lipase 2153 U/L Thyroid Stimulating Hormone (TSH) 0.955 uIu/ml Bedside Lactic Acid Venous 1.01 mmol/L Bedside Hemoglobin 12.9 g/dl Bedside Hematocrit 38 % Bedside Sodium 131 mEq/L Bedside Potassium 7.3 mEq/L Bedside Chloride 107 mEq/L Bedside Total CO2 17 mEq/l Bedside Blood Urea Nitrogen > 140 mg/dl Bedside Creatinine 6.0 mg/dl Bedside Glucose (other) 218 mg/dl Bedside Ionized Calcium ([place]) 1.21 mmol/l Urine Color YELLOW Urine Appearance TURBID Urine pH 5.0 Urine Specific [place] 1.016 Urine Protein 1+ Urine Glucose (UA) NEG Urine Ketones NEG Urine Occult Blood 3+ Urine Nitrite NEG Urine Bilirubin NEG Urine Urobilinogen NEG Urine Leukocyte Esterase LARGE Urine WBC (Auto) >30 /hpf Urine RBC (Auto) 10-30 /hpf Urine Hyaline Casts (Auto) 0 /lpf Urine Epithelial Cells (Auto) 10-20 /lpf Urine Bacteria (Auto) NEG Urine Pathogenic Casts /lpf Diagnostic Results Radiological imaging and reports were reviewed by myself. Radiologist's Interpretation as follows: CHEST ONE VIEW PORTABLE CLINICAL HISTORY: 87 years-old Male presenting with EVALUATE WEAKNESS. TECHNIQUE: Portable upright AP view of the chest was obtained. COMPARISON: 05/24/2017. FINDINGS: Atherosclerosis of aortic arch. Cardiac silhouette enlargement, unchanged. Pulmonary vasculature less prominent than on prior exam. Hazy perihilar opacities. Multifocal calcified granulomas noted bilaterally. No large pleural effusion or pneumothorax. Degenerative changes of the thoracic spine. Upper abdomen normal. IMPRESSION: 1. Vague perihilar opacities could suggest early pulmonary edema though these changes are less pronounced than on prior exam. 2. Cardiomegaly 3. Old granulomatous disease.. ABD/PELVIS NO IV OR ORAL CONT CLINICAL HISTORY: 87 years-old Male presenting with Vomiting, bilateral lower and RUQ pain, h/o CRF. TECHNIQUE: Multidetector CT of the abdomen and pelvis was performed without the use of intravenous contrast. IV contrast: None. A dose lowering technique was used consistent with the principles of ALARA (as low as reasonably achievable). COMPARISON: 05/26/2017. CT DOSE (mGy.cm): The estimated cumulative dose is 1484.60 mGy.cm. FINDINGS: Hand Braille Transcriber topogram: Unremarkable. Lung bases: Multiple calcifications in the dependent distribution with associated reticulation and subpleural cystic change. Bronchial wall thickening and minimal debris in subsegmental airways noted in a dependent distribution. Multichamber enlargement of the heart. Coronary artery calcification. Few calcified or soft lymph nodes noted. No pericardial or pleural effusion. Liver: Normal morphology. Normal density. Biliary: No gross biliary ductal dilatation allowing for noncontrast technique. Gallbladder contains gallstones. Pancreas: Mild parenchymal atrophy. Spleen: Normal noncontrast appearance. Splenule noted. Adrenal glands: Nodular thickening of the left adrenal gland, nonspecific. Right adrenal gland diminutive. Kidneys and ureters: Dilated right renal collecting system with abrupt caliber change at the ureteropelvic junction. No left hydronephrosis. Multiple hypodensities noted in the kidneys bilaterally of indeterminate but likely cysts. Nonobstructing 7 mm calculus in the interpolar region of the right kidney punctate nonobstructing calculus at the lower pole the left kidney. Ureters normal. Bladder: Circumferential bladder wall thickening with multiple small diverticula noted as well as a dominant diverticula at the dome. Pelvic organs: Prostate enlargement likely secondary to benign prostatic hyperplasia. Bowel: Diverticulosis of the descending and sigmoid colon. Mild pericolonic fat stranding suggested adjacent to the bladder dome. It is unclear if this emanates from the bladder from the colon (series 3 image 214). No significant colonic wall thickening. The appendix is normal. No bowel obstruction. Peritoneal cavity: No free fluid or intraperitoneal gas. Lymph nodes: No gross lymphadenopathy allowing for noncontrast technique. Vasculature: Atherosclerosis of the normal caliber abdominal aorta. Minimal irregularity of the infrarenal abdominal aorta just proximal to the bifurcation (series 3 image 240). Abdominal wall: Small fat-containing umbilical hernia. Musculoskeletal: Degenerative changes of the spine. Partial osseous fusion across the sacroiliac joints asymmetrically affecting the right joint greater than the left. IMPRESSION: 1. Diverticulosis. Mild pericolonic fat stranding adjacent to the bladder dome. It is unclear if this emanates from the bladder or from the colon. No significant colonic wall thickening. These findings are somewhat equivocal for mild acute diverticulitis. The primary differential consideration is cystitis given the presence of associated bladder wall thickening. Correlate with urinalysis. Alternatively, bladder wall thickening could be due to chronic outlet obstruction in the setting of enlarged prostate. 2. Calcification, dependent opacities, and cystic change at the lung bases in a dependent distribution. This could represent chronic aspiration, especially given the presence of multifocal subsegmental bronchial debris in this distribution. 3. Cardiomegaly. 4. Bilateral nephrolithiasis. 5. Corrected right ureteropelvic junction obstruction. No obstructing calculus or mass. This is unchanged from prior exam. Assessment & Plan (1) ARF (acute renal failure) (2) Dehydration (3) Hyperkalemia (4) Hypermagnesemia (5) Pancreatitis (6) Renal failure (7) HTN (hypertension) (8) COPD (chronic obstructive pulmonary disease) (9) CAD (coronary artery disease) (10) Chronic hypoxemic respiratory failure (11) CKD (chronic kidney disease), stage IV (12) Atrial fibrillation (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, chronic (14) DM2 (diabetes mellitus, type 2) (15) HLD (hyperlipidemia) Reason Critically Ill: 87-year-old male with a significant past medical history of kidney disease who presents with an acute renal failure on chronic disease with hyperkalemia requiring close cardiovascular monitoring and electrolyte replacement and possible need for urgent/emergent hemodialysis. Neuro - * CAM ICU: NEGATIVE * Abdominal Pain - Dilaudid. * Continue Neurontin. Cardiac - * Extensive PMHx including CAD, PTCA w/ FARAZ, HLD, A. Fib, CHF: * Negative initial troponin despite ARF - Will trend. * EKG shows new LBBB from 05/26. * A. Fib - currently rate controlled on Dig. Will check Dig levels 2/2 ARF. * Not anticoagulated 2/2 hematuria previously. Will continue w/ rate control and monitor for any dysrhythmias. * Continue ASA/Plavix/Dig/Metoprolol/Simvastatin * CHF in the setting of dehydration and ARF: * Judicious fluid resuscitation. * Monitor for volume overload - responded well to Lasix/BiPAP previously. * ECHO (05/25/2017): * Conclusions -- * There is mild concentric left ventricular hypertrophy. * The inferior and inferolateral carter are severely hypokinetic to akinetic at the basal, mid and apical levels. The inferoseptal wall is hypokinetic at the basal and mid levels. * Left ventricular systolic function is moderately reduced. * The LV Ejection Fraction = 35-40%. * There is mild tricuspid regurgitation. * Doppler findings do not suggest pulmonary hypertension. * Diastolic dysfunction, Grade II (pseudonormalization pattern). * Aortic valve sclerosis mild, without significant aortic valvular stenosis. * Compared to the prior study dated 11/13/16, there LVEF is unchanged. Respiratory - * COPD w/ oxygen dependence: * Currently on 2L NC. * Will add BiPAP in the setting of volume overload issues. * Continue home breathing treatments. * Daily CXRs GI - * Pancreatitis w/ Lipase >2000 * CT abd/pelvis demonstrates gallstones. No acute findings otherwise. * ??Abdomen/Pelvis US?? * NPO overnight w/ Sips/Chips RENAL/LYTES - * Acute Renal Failure on Chronic Kidney Disease: * BUN/Cr 189/6.25 * Likely related to dehydration. * Per nephrology recommendations - BiCarb gtt @100mL/hr + 80mg Lasix. * Judicious IVF resuscitation in the setting of CHF an recent h/o volume overload. * Realistically, the patient has a very real probability of becoming dialysis dependent. Previously he had not been open this, however. This evening, he does state that he would be open to dialysis "if it keeps me alive." At this time, we will continue to manage the patient's electrolyte disturbances through the night until the patient is formally evaluated by Nephrology in the AM for continued guidance/treatment. Will withhold performing CVL/Dialysis catheter placement as the patient will likely require more permanent placement catheter if he decides to proceed with dialysis. * Appreciate Nephrology Consultation * Hyperkalemia: * Initially treated aggressively in the ED. No EKG changes. * Will monitor q4h PRPs * Adjustments as needed. * Likely require dialysis. - * ?Cystitis on CT w/ concerns of UTI per Urinalysis: * Initially placed on Ertapenem per admitting team. * Uncertain as to the need for this antibiotic as he has grown out palm sensitive Enterococcus Faecalis during most recent admission. Will defer further antibiotic coverage at this immediate time. * History of BPH: * Continue Finasteride/Flomax as BP tolerates. * Wallace Catheter to [place]. * Strict I&Os ENDO - * h/o DM: * ISS per protocol HEME - * Stable H&H. * Will monitor daily. ID - * Cystitis/UTI: * Initially received Ertapenem per admitting team. * Urine cultures pending. * Blood Cultures pending. * Will monitor fever curve. LINES/IV ACCESS - * PIVs intact. * Will wait placement of temporary HD cath per Nephrology evaluation. Patient will likely require more permanent site. * Wallace Catheter in place. DVT PROPHYLAXIS - * Heparin sq * SCDs I have personally spent 45 minutes of critical care time in the direct management of this patient. This is a life/limb threatening event. This includes time spent evaluating patient, direct bedside care, chart review, placing orders, interpretation of diagnostic studies, discussion with consultants, patient, and family members, as well as other required patient management activities. This time is exclusive of all separately billable procedures, and teaching time and separate from and in addition to any other critical care service time. Thank you for this consultation allow us to be part of this patient's care. Please refer to my attending physician's documentation for any further recommendations. I have personally evaluated and examined this patient. I agree with assessment and plan of Triston Tavares PA-C. [place]/W Evelio nephrology, patient previously did not want dialysis now he does. Dr. Fraser discussed placement of a permacath with vascular surgery, vascular surgery unable to placement today, we will place a temporary hemodialysis catheter. Problem Qualifiers (1) ARF (acute renal failure): Acute renal failure type: unspecified Qualified Codes: N17.9 - Acute kidney failure, unspecified
[2017-07-16] MEDS ORDERED: [UNRECOGNIZED DRUG - OTHER] PRN (23:15)
[2017-07-16] MEDS ORDERED: SODIUM BICARBONATE 8.4% INJ 150 MEQ in SODIUM CHLORIDE 0.45% 1000ML 1,000 ML IV SCH (23:30)
[2017-07-16] MEDS: ERTAPENEM IV 500 MG in SODIUM CHLORIDE 0.9% 50 ML IV SCH (23:34)
[2017-07-16] MEDS ORDERED: FUROSEMIDE INJ 80 MG in SYRINGE 0 ML IV ONE (23:45)
[2017-07-16 23:59] VITALS: O2SAT 95
[2017-07-17] VITALS (34 sets, daily range): BP systolic 78–113; BP diastolic 43–73; PULSE 69–132; TEMP 36.3–36.9; O2SAT 92–100
--- NOTE | 2017-07-17 00:01 | HISTORY & PHYSICAL EXAMINATION ---
DATE OF ADMISSION: 07/16/2017 CHIEF COMPLAINT: generalized weakness. HISTORY OF PRESENT ILLNESS: This is an 87-year-old male with past medical history significant for type 2 diabetes mellitus, chronic kidney disease stage IV CAd s/p stent, COPD, chronic respiratory failure, history of atrial fibrillation, history of lung nodule, history of BPH amira was recently in the hospital for acute on chronic respiratory failure from COPD and CHF and at that time we nephrology recommended dialysis which the patient refused. he was supposed to go to rehab/ snf but he stayed only day and went home.Lives alone. Recently saw assembler crimper and recommended snf placement as not safe to go home and recommended dialysis both of which patient refused,.At that time Cardiology recommended Hospice.At home patient not getting up from the bed and not eating and non compliant with meds. Complaining generalized weakness. Family brought him to Er. Today, in the ER, potassium was 6.9, creatinine 6's, sodium 127. He received treatment for hyperkalemia in the ER with calcium gluconate, dextrose with insulin and bicarb.. Apparently, the patient is alert and awake and oriented and now ojk for dialysis and wants to be full code. Family member asked me to double check code status as yesterday he just wanted to at home.But patinet again states he wants dialysis and wants to be full code. Some what lethargic but answes questions appropriately.Denies any chest pain, denied shortness of breath, denied nausea, no abdominal pain. no cough, no fever or chills. Apparently hemodynamics stable. ALLERGIES: IODINE, HEPARIN, SULFA . PAST MEDICAL HISTORY: As above PAST SURGICAL cardiac stents, Lithotripsy,ERCP,History inguinal hernia repair FAMILY HISTORY: Significant for mother with kidney failure. Father of [place]. REVIEW OF SYSTEMS: As per HPI. PHYSICAL EXAMINATION: GENERAL: The patient is alert and awake. Slightly lethargic VITAL SIGNS: Pulse 102, respiratory rate 18, blood pressure 118/78, oxygen 98% on 3lts. HEENT: No pallor, no icterus. MOHINDER. NECK no JVD no neck masses supple CVS s1 and s2 heard regular no murmurs RS: CTA b/l No accessory muscle use, no wheezing no crackles ABDOMEN: Soft, bowel sounds present. NO abdominal distention. No tenderness. CENTRAL NERVOUS SYSTEM: Cranial nerves intact II to XII. Nonfocal. EXTREMITIES: No edema, no erythema. LABORATORY STUDIES: Sodium 127, potassium 6.9, chloride 98, CO2 17, BUN 189, creatinine 6.2, serum glucose 206. Point of care lactic acid 1.01, total bilirubin 0.4, direct bilirubin 0.1, AST 8, ALT 17, alkaline phosphatase 88, total creatinine kinase 30. Troponin I 0.02. Lipase 2153. TSH 0.95. PT 10.2, INR 1, PTT 26.8. WBC 12.4, hemoglobin 14.8, hematocrit 42.9, platelets 199. Urinalysis positive for leukocyte esterase. Chest x-ray right basilar atelectasis versus early pulmonary edema CT of abdomen and pelvis, diverticulosis. Possible mild diverticulitis with possible cystitis. EKG sinus tachycardia at a rate of 102, left bundle branch block, left axis deviation. ASSESSMENT AND PLAN: This is an 87-year-old male who presents with hyperkalemia and acute renal failure and chronic kidney disease stage IV. 1. Hyperkalemia. The patient received insulin, dextrose, calcium gluconate and bicarbonate in the ER . The patient has chronic kidney disease stage IV and need dialysis . Refused dialysis multiple times in the past but agreeable now. Discussed with nephrology advised for one dose of iv Lasix and to start on bicarb drip and close f/u labs.As there was also discussion about hospice care nephrology will readdress about dialysis in am. 2. Acute renal failure, chronic kidney disease stage IV. Plan for dialysis in the morning after discussing with patent and family by nephrology. 3. Chronic congestive heart failure with EF of 40%, holding diuretics . To give one dose of IV Lasix 80 mg . Starting on bicarb drip. we will monitor for volume overload. 4. CAd status post stent placement. Continue aspirin, Plavix, beta kelly, nitrates and statin. We will follow the troponin. 4. Hypertension. Continue nitrates and Toprol-XL will monitor 5 Chronic respiratory failure secondary to chronic obstructive pulmonary disease. Stable. On Advair and albuterol p.r.n. 6 Hx of A fib rate controlled on Toprol xl holding digoxin for renal failure. Not on anticoagulation secondary to hematuria while on Coumadin.. 7. BPH on Flomax recently had urinary retention. f/u with urology. placed on chambers in ER and drained good amount of urine. 8. Dvt px scds Disposition close monitor in icu code status full code for now MTDD
[2017-07-17 01:27] LABS: BASO % 0.1 %; BASO ABS # 0.01 K/uL (0-0.2); EOS % 0.3 %; EOS ABS # 0.03 K/uL (0-0.5); HEMATOCRIT 37.9 % (42-52); IG# 0.02 K/uL (0.00-0.02); LYMPH % 4.5 %; LYMPH ABS # 0.45 K/uL (1.2-3.4); MEAN CELL VOLUME 87.7 fL (80-100); MEAN CORPUSCULAR HEMOGLOBIN 30.1 pg (25-34); MEAN CORPUSCULAR HGB CONC 34.3 g/dl (32-36); MEAN PLATELET VOLUME 10.4 fL (7.4-10.4); MONO % 7.9 %; MONO ABS # 0.79 K/uL (0.11-0.59); NEUT ABS # 8.72 K/uL (1.4-6.5); PLATELET COUNT 159 K/uL (130-400); RED CELL DISTRIBUTION WIDTH CV 13.7 % (11.5-14.5); RED CELL DISTRIBUTION WIDTH SD 43.8 fL (36.4-46.3); WHITE BLOOD COUNT 10.02 K/uL (4.8-10.8)
[2017-07-17 02:12] LABS: CALCIUM 8.8 mg/dl (8.5-10.1); CREATININE 5.67 mg/dl (0.60-1.40); POTASSIUM 6.3 mmol/L (3.5-5.1)
[2017-07-17 04:33] LABS: BASO % 0.2 %; BASO ABS # 0.02 K/uL (0-0.2); EOS % 0.7 %; EOS ABS # 0.07 K/uL (0-0.5); HEMATOCRIT 38.1 % (42-52); HEMOGLOBIN 13.3 g/dL (14.0-18.0); IG# 0.03 K/uL (0.00-0.02); LYMPH % 5.3 %; LYMPH ABS # 0.51 K/uL (1.2-3.4); MEAN CELL VOLUME 87.4 fL (80-100); MEAN CORPUSCULAR HEMOGLOBIN 30.5 pg (25-34); MEAN CORPUSCULAR HGB CONC 34.9 g/dl (32-36); MEAN PLATELET VOLUME 10.5 fL (7.4-10.4); MONO % 10.2 %; MONO ABS # 0.99 K/uL (0.11-0.59); NEUT % 83.3 %; NEUT ABS # 8.08 K/uL (1.4-6.5); PLATELET COUNT 163 K/uL (130-400); RED CELL DISTRIBUTION WIDTH CV 13.7 % (11.5-14.5); RED CELL DISTRIBUTION WIDTH SD 43.9 fL (36.4-46.3)
[2017-07-17 05:04] LABS: CKMB 2.2 ng/ml (0.5-3.6); CREATININE 5.5 mg/dl (0.60-1.40); POTASSIUM 5.8 mmol/L (3.5-5.1)
[2017-07-17] MEDS ORDERED: INSULIN ASPART 100 UNITS/ML 3 ML PEN SC SCH (06:45)
--- NOTE | 2017-07-17 06:55 | DIAGNOSTIC IMAGING REPORT ---
CHEST ONE VIEW PORTABLE CLINICAL HISTORY: CONGESTION COMPARISON STUDY: 07/16/2017 FINDINGS: The heart remains enlarged. There are multiple calcified granulomas present. There is no focal pulmonary consolidation. There is no failure. There are no pleural effusions.[ IMPRESSION: Old granulomatous calcifications. No acute findings. Electronically signed by: Roberto Yousif M.D. 07/17/2017 6:53 AM Dictated Date/Time: 07/17/2017 6:53 AM
[2017-07-17] MEDS: CLOPIDOGREL BISULFATE 75 MG TAB PO SCH (07:32)
[2017-07-17] MEDS: ASPIRIN 81 MG ECTAB PO SCH (07:32)
[2017-07-17] MEDS: METOPROLOL SUCC 50MG EXT REL TAB PO SCH (07:32)
[2017-07-17] MEDS: FLUTICASONE/SALMETEROL 250/50 (ADVAIR) 14 PUFF/1 INHALER INH SCH ×2 (07:32→20:58)
[2017-07-17] MEDS: ISOSORBIDE DINITRATE 5 MG TAB PO SCH ×3 (07:32→17:00)
--- NOTE | 2017-07-17 08:22 | Procedure Note ---
Procedure Note Procedure Date Jul 17, 2017. (Ike Tavares PA-C) Central Line Time of procedure: 07:30 Performed by: physician dust box tender Indications: other (Temporary HD Catheter for emergent hemodialysis) Prep: chlorhexadine prep, sterile drape, sterile procedures used Anesthesia: lidocaine 1% without epi Volume anesthetic (ml's): 5 Central line lumen: double Central line location: femoral (R) Additional details: percutaneous placement, ultrasound guidance, Selinger technique used, line sutured, good blood return CXR: appropriate position Complications: none Patient tolerated procedure: well Post-procedure vital signs: reviewed and stable Comments: Procedure: Central Line Placement Attending: Dr. Harris APC: Ike Tavares PA-C Indication: Central Drug Administration, Poor Venous Access, Multiple Lab Draws Necessary, etc. Anesthesia: Lidocaine 1% Consent was signed and placed on the chart prior to procedure. Indication, risks , and benefits were explained at length. A time-out was completed verifying correct patient, procedure, site, positioning , and implants(s) or special equipment if applicable. Patients RIGHT Groin was cleansed and draped in the typical sterile fashion using Chloraprep. The RIGHT Femoral Vein and RIGHT Femoral Artery were identified using ultrasound. The superficial tissue was anesthetized using 5 cc of 1% lidocaine without epinephrine under direct visualization with the ultrasound. After adequate anesthetization was achieved, the Internal Femoral vein was cannulated under direct ultrasound guidance using an introducer needle on a syringe. Good venous blood return was maintained prior to removal of syringe from introducer needle. Using Seldinger Technique, a guide wire was advanced through the introducer needle without resistance. The introducer needle was removed. A small incision was made in penetrating fashion at the guide wire insertion site utilizing an 11 blade scalpel. The first dilator was advanced to the vessel without resistance. The second dilator was advanced over the wire without resistance. The dilator was exchanged for the dual lumen HD catheter which was advanced into the vessel without resistance. The guide wire was removed intact from the catheter without issue. Caps were placed on each catheter tip with confirmation of good blood flow from each lumen. The catheter was placed to the hub and sutured in place. BioPatch was applied to the catheter and a sterile Tegaderm dressing was applied over the catheter with careful attention to sterility. Patient tolerated procedure well. No immediate complications were met. Post procedure x-ray is pending. Images obtained are saved for permanent record Procedural Ultrasound Guidance: Procedure Date: 07/17/2017 Indication: Need for Emergent Hemodialysis Attending: Dr. Harris APC: Ike Tavares PA-C Artery AND Vein visualized: YES Compressible Vein: YES Guidewire or Short Catheter seen in vein prior to dilation: YES Line confirmed in Vein with ultrasound: YES Images obtained are saved for permanent record (Ike Tavares PA-C) Comments: I was present and assisted during the entire procedure. (Toby Harris, D.O.)
[2017-07-17] MEDS ORDERED: SODIUM BICARBONATE IV SCH (08:45)
[2017-07-17] MEDS ORDERED: SODIUM CHLORIDE 0.45% IV SCH (08:45)
--- NOTE | 2017-07-17 08:47 | NEPHROLOGY CONSULTATION ---
DATE OF CONSULTATION: 07/17/2017 ATTENDING OF RECORD: Dr. Page. REASON FOR CONSULTATION: EDUAR on chronic kidney disease. HISTORY OF PRESENT ILLNESS: This is an 87-year-old male with EDUAR on chronic kidney disease, who was evaluated in the clinic before, who has always been adamant that he did not want any dialysis and when its his time to go, its his time to go. The patient though has been feeling more tired, decreased appetite and presents to the Emergency Room with an elevated potassium of 6.9 and states now that he wants to stay alive and he wants to do dialysis. The patient was given judicious use of IV fluids as well as bicarbonate, dextrose, insulin and calcium to help lower the potassium. Potassium levels improved from 6.9 down to 5.8. The patient does have underlying history of heart disease, atrial fibrillation, hypertension, COPD on oxygen as well as underlying CKD. Patient with more fatigue, weakness and decreased appetite. Denies any nausea or vomiting. I did explain to him the risks of dialysis and the amount of time it takes and the patient now wants to do everything possible to stay alive. PAST MEDICAL HISTORY: EDUAR on chronic kidney disease stage V, atrial fibrillation, heart disease, COPD on oxygen, type 2 diabetes, hyperlipidemia, hypertension and congestive heart failure. PAST SURGICAL HISTORY: TURP. FAMILY HISTORY: No renal disease in family. SOCIAL HISTORY: Former smoker. No alcohol. No drugs. Lives alone; however, has family support. CURRENT MEDICATIONS: 1. Proscar 5 mg at night. 2. Neurontin 300 mg at night. 3. Zocor 40 mg at night. 4. Flomax 0.4 mg at night. 5. Lantus 25 units subQ at night. 6. Aspirin 81 mg a day. 7. Plavix 75 mg a day. 8. Advair twice a day. 9. Toprol-XL 100 mg daily. 10. Isordil 5 mg p.o. t.i.d. 11. D5W with 150 mEq of bicarbonate at 100 mL an hour. 12. Ertapenem 500 mg IV daily. REVIEW OF SYSTEMS: Positive fatigue. Positive anorexia. Positive chronic shortness of breath. No chest pain. No nausea or vomiting. No decrease in urination. No diarrhea or constipation. No headaches. No blurry vision. All other review of systems otherwise negative. PHYSICAL EXAMINATION: VITAL SIGNS: Temperature 36.4, pulse 116, respiratory rate 17, blood pressure 96/64, and satting 94% on 2 liters. GENERAL: Awake, alert, and oriented x3. EYES: No scleral icterus. ENT: Moist mucous membranes. NECK: Supple. PULMONARY: Decreased breath sounds at the bases. CARDIAC: Tachy. ABDOMEN: Bowel sounds positive. Soft, nontender, and nondistended. EXTREMITIES: No clubbing, cyanosis or edema. NEUROLOGICALLY: Nonfocal. DERMATOLOGIC: No rash or ulcers noted. LABORATORY DATA: Sodium level is 132, potassium is 5.8, chloride is 102, bicarbonate is 20, BUN is 186, creatinine is 5.5, glucose is 151, calcium is 9, and magnesium is 3.2. CK is 26. Troponin 0.026. INR is 1. Urine with large leukocyte esterase, 3+ blood, greater than 30 WBCs, and 10-30 RBCs. Digoxin 0.7. White count 9.7, H&H 13 and 38, and platelet count is 163. Urine culture and blood cultures are pending. Abdominal pelvis CT shows diverticulosis, chronic cystic changes at the lung bases suggestive of chronic aspiration, cardiomegaly, and bilateral kidney stones. No obstruction on CT scan. Chest x-ray shows vague perihilar opacities suggesting early pulmonary edema, cardiomegaly and old granulomatous disease. ASSESSMENT AND PLAN: Acute kidney injury on chronic kidney disease, stage V. The patient has urinated about 2200 mL and creatinine has improved from 6.25 down to 5.5 with a BUN of 186. I feel the patient though will likely need chronic dialysis. I did speak with the vascular surgeon, Dr. Mckeon. Given his multiple electrolyte derangements including elevated magnesium level of 3.2 and elevated potassium level of 5.8, we decided to consider placing a temporary dialysis catheter through critical care and then plan on a tunneled line tomorrow once the patient's electrolytes are more stable. We will plan a short 2-hour treatment with no fluid removal. Once the patient is on dialysis, we will stop the IV fluids for concern of volume overload in this patient with heart disease, chronic obstructive pulmonary disease with possible early signs of congestive heart failure. I appreciate the consultation. QASIM
[2017-07-17] MEDS ORDERED: PHARMACY GLYCEMIC MGMT CONSULT PRN (10:40)
--- NOTE | 2017-07-17 11:00 | Surgery Consultation ---
Consultation Date of Service Jul 17, 2017. Chief Complaint acute on chronic renal failure History of Present Illness The patient is a 87 year old male with multiple medical problems, including chronic renal failure, CHF, a fib, CAD, HTN, admitted with acute on chronic renal failure, seen in consultation for same and placement of permcath for HD. Pt apparently with hx of refusing HD in past, however, is agreeable on this admission. Pt somewhat somnolent, but does answer questions appropriately. Denies pain, SOB, other complaints. Underwent temporary HD catheter insertion this AM by fur repair inspector. Vitals Vital Signs Past 12 Hours Date Time Temp Pulse Resp B/P (MAP) Pulse Ox O2 Delivery O2 Flow Rate FiO2 07/17/17 10:01 113 17 98/60 (73) 96 Nasal Cannula 2.0 07/17/17 09:04 116 18 102/64 (77) 95 Nasal Cannula 2.0 07/17/17 08:31 118 18 82/51 (61) 96 Nasal Cannula 2.0 07/17/17 08:14 36.9 120 21 87/58 (68) 92 Nasal Cannula 2.0 07/17/17 08:00 Nasal Cannula 2.0 07/17/17 07:23 117 21 109/62 (78) 93 Nasal Cannula 2.0 07/17/17 06:00 116 17 96/64 (75) 94 2.0 07/17/17 04:00 95 Nasal Cannula 2.0 07/17/17 04:00 36.4 110 18 111/67 (82) 94 Nasal Cannula 2.0 07/17/17 02:00 112 18 99/66 (77) 97 Nasal Cannula 2.0 07/17/17 00:01 36.6 109 20 113/62 (79) 96 Nasal Cannula 2.0 07/16/17 23:59 95 Nasal Cannula 2.0 Allergies Coded Allergies: Iodine (Verified Allergy, Mild, HIVES, 07/16/17) Heparin (Verified Allergy, Unknown, ., 07/16/17) Sulfa Antibiotics (Verified Allergy, Unknown, ENTERED SULFA- UNKNOWN, 07/16/17) Home Medications Scheduled Aspirin (Aspirin Ec), 81 MG PO QAM Clopidogrel (Plavix), 75 MG PO QAM Digoxin (Digoxin), 0.125 MG PO 2XWK Finasteride (Proscar), 5 MG PO HS Fish Oil (Courtland-3), 1 CAP PO HS Fluticasone Prop/Salmeterol (Advair Diskus 250/50 60 Dose), 1 PUFF INH BID Furosemide (Furosemide), 80 MG PO BID Gabapentin (Neurontin), 300 MG PO HS Home O2 Therapy (Oxygen), 2 LITERS NA CONTINOUS Insulin Glargine (Lantus), 50 UNITS SC UD Isosorbide Dinitrate (Isosorbide Dinitrate), 5 MG PO TID@0700,1200,1700 Metoprolol Succ (Toprol Xl) (Toprol-Xl ), 100 MG PO DAILY Simvastatin (Simvastatin), 40 MG PO QPM Tamsulosin HCl (Tamsulosin HCl), 0.4 MG PO HS Scheduled PRN Albuterol Sulfate (Proair Respiclick), 2 PUFFS INH Q4H PRN for SOB/Wheezing Nitroglycerin (Nitrostat), 0.4 MG UT UD PRN for Chest Pain Problem List Medical Problems: (1) Atrial fibrillation (2) CAD (coronary artery disease) (3) Chronic hypoxemic respiratory failure (4) CKD (chronic kidney disease), stage IV (5) COPD (chronic obstructive pulmonary disease) (6) DM2 (diabetes mellitus, type 2) (7) HLD (hyperlipidemia) (8) HTN (hypertension) (9) Pulmonary nodules (10) Systolic and diastolic CHF, chronic Surgical Problems: (1) H/O hernia repair (2) s/p laser vaporization of prostate 11/01/11 (3) Transurethral prostatectomy Surgical / Medical History Hx Cardiac Surgery: Yes (stent placement x4) Hx Abdominal Surgery: No Hx Cancer Surgery: No Hx Thoracic Surgery: No Hx Orthopedic: No Hx Urinary Tract Surgery: Yes (Kidney stone removed, prostate surgery) Past Medical/Surgical History: CHF, Diabetes, Heart Disease, High Cholesterol, Hypertension, Kidney Disease Family History Heart disease Social History Smoking Status: Former Smoker Hx Tobacco Use In Past Year?: No Hx Alcohol Use - Type & Amnt: No Hx Substance Use -Type & Amnt: No Review of Systems Constitutional: + malaise, No fever Skin: No change in color Eyes: No visual changes ENMT: No sore throat Respiratory: + NOONAN, + short of breath, No cough Cardiovascular: + edema, No chest pain, No palpitations, No intermittent claudication Gastrointestinal: No abdominal pain, No nausea, No vomiting Neurologic: + lethargy Physical Exam Constitutional: General Apperance: well-nourished, well-developed, obese Level of Distress: NAD, acutely ill, chronically ill Psychiatric: Mental Status: normal mood, normal affect, lethargic Orientation: oriented except where noted, to time, to place, to person Memory: recent memory normal (but vague), remote memory normal Head: normocephalic, atraumatic Eyes: EOM: EOMI ENMT: normal ENT inspection, hearing grossly normal Neck: supple, trachea midline Lungs: Respiratory effort: no dyspnea Auscultation: no rhonchi, decreased breath sounds Cardiovascular: Apical Impulse: not displaced Heart Auscultation: no rubs, no gallops, pertinent finding (irregular) Peripheral Pulses: Pulses: full and equal, in all extremities except if noted Bruits: none appreciated Carotid Pulse: normal on the left, normal on the right Brachial Pulses: normal on the left, normal on the right Radial Pulse: normal on the left, normal on the right Femoral Pulse: normal on the left, normal on the right Posterior Tibialis Pulse: pertinent finding (nonpalpable) Dorsalis Pedis Pulse: pertinent finding (nonpalpable) Abdomen: Bowel Sounds: normal Inspection & Palpation: soft, non-distended, no tenderness, guarding & rebound Musculoskeletal: normal strength (5/5 throughout), normal tone Extremities: Upper Right: no cyanosis, no varicosities, edema Upper Left: no cyanosis, no varicosities, no palpable cord, edema Lower Right: no cyanosis, no varicosities, no palpable cord, edema Lower Left: no cyanosis, no varicosities, no palpable cord, edema Neurologic: Cranial Nerves: grossly intact Assessment and Plan ASSESSMENT and PLAN: Acute on chronic renal failure hyperkalemia Pt for permcath insertion in OR tomorrow by Dr Mckeon. Discussed with pt , he is agreeable.
[2017-07-17 11:37] LABS: CREATININE 5.29 mg/dl (0.60-1.40)
[2017-07-17 11:38] LABS: CALCIUM 8.8 mg/dl (8.5-10.1); POTASSIUM 5.6 mmol/L (3.5-5.1)
[2017-07-17] MEDS: INSULIN ASPART 100 UNITS/ML 3 ML PEN SC SCH ×2 (11:50→17:40)
[2017-07-17] MEDS ORDERED: INSULIN GLARGINE SOLOSTAR 100 UNITS/ML 3 ML PEN SC STA (11:51)
--- NOTE | 2017-07-17 11:51 | Pharmacy Progress Note ---
Glycemic Control Intl Consult Date of Service Jul 17, 2017. Scope Glycemic Pharmacist consulted by Dr Harris on 07/17/17 for glycemic control and to write orders per [facility] inpatient glycemic control protocol Objective Weight (Kilograms): 111.800 Accuchecks BSG (last 24hrs): Test 07/16/17 18:46 07/17/17 01:20 07/17/17 04:22 07/17/17 06:04 Random Glucose 206 mg/dl (70-99) 166 mg/dl (70-99) 151 mg/dl (70-99) Bedside Glucose 145 mg/dl (70-99) Test 07/17/17 07:31 07/17/17 10:44 Bedside Glucose 142 mg/dl (70-99) Random Glucose 164 mg/dl (70-99) Laboratory Data (last 24hrs) Test 07/16/17 18:46 07/16/17 20:17 07/17/17 01:20 07/17/17 04:22 Anion Gap 12.0 mmol/L 15.0 mmol/L 11.0 mmol/L 1.0 mmol/L BUN/Creatinine Ratio 30.2 32.5 33.9 Blood Urea Nitrogen 189 mg/dl 184 mg/dl 186 mg/dl Creatinine 6.25 mg/dl 5.67 mg/dl 5.50 mg/dl Potassium Level 6.9 mmol/L 6.3 mmol/L 5.8 mmol/L Sodium Level 127 mmol/L 131 mmol/L 132 mmol/L White Blood Count 12.42 K/uL 10.02 K/uL 9.70 K/uL Red Blood Count 4.88 M/uL 4.32 M/uL 4.36 M/uL Hemoglobin 14.8 g/dL 13.0 g/dL 13.3 g/dL Hematocrit 42.9 % 37.9 % 38.1 % Mean Corpuscular Volume 87.9 fL 87.7 fL 87.4 fL Mean Corpuscular Hemoglobin 30.3 pg 30.1 pg 30.5 pg Mean Corpuscular Hemoglobin Concent 34.5 g/dl 34.3 g/dl 34.9 g/dl Platelet Count 199 K/uL 159 K/uL 163 K/uL Mean Platelet Volume 11.2 fL 10.4 fL 10.5 fL Neutrophils (%) (Auto) 88.7 % 87.0 % 83.3 % Lymphocytes (%) (Auto) 4.7 % 4.5 % 5.3 % Monocytes (%) (Auto) 5.6 % 7.9 % 10.2 % Eosinophils (%) (Auto) 0.5 % 0.3 % 0.7 % Basophils (%) (Auto) 0.1 % 0.1 % 0.2 % Neutrophils # (Auto) 11.02 K/uL 8.72 K/uL 8.08 K/uL Lymphocytes # (Auto) 0.58 K/uL 0.45 K/uL 0.51 K/uL Monocytes # (Auto) 0.70 K/uL 0.79 K/uL 0.99 K/uL Eosinophils # (Auto) 0.06 K/uL 0.03 K/uL 0.07 K/uL Basophils # (Auto) 0.01 K/uL 0.01 K/uL 0.02 K/uL Test 07/17/17 10:44 Anion Gap 13.0 mmol/L BUN/Creatinine Ratio 33.9 Blood Urea Nitrogen 182 mg/dl Creatinine 5.29 mg/dl Potassium Level 5.6 mmol/L Sodium Level 133 mmol/L Recent Pertinent Medications Outpatient Anti-diabetic Regimen: * Lantus 50u BID * A1c = 12.1 % 12/19/15 * A1C ordered for 07/18/17 w AM labs The patient is currently receiving: * Correctional Insulin: Novolog Correction per scale ACHS Goal Range: Low 140 mg/dL - High 180 mg/dL Correction Factor: 30 mg/dL/unit Risk Factors for Insulin Resistance: * Infection: Invanz * IVF: Sodium Bicarb in 1/2NSS * Recent Surgery: Permcath placement scheduled for 07/18/17 * Diet: NPO Assessment & Plan ASSESSMENT: * Pt is an 87yo M p/w EDUAR w/ concurrent hyperkalemia. Current outpatient insulin regimen: Lantus 50u BID, unsure when the last dose of insulin was administered. Mr. Lopez received 10u regular insulin in the ED 07/16/17, BSGs trended from 206-->166-->142. No other insulin was given while at [facility]. Given his EDUAR and being unsure when his outpt lantus was given, I have chosen a more conservative approach to his glycemic management. I feel 10u Lantus should provide metabolic needs w/o causing hypoglycemia in the setting of EDUAR. Also, CF /CR were derived from a combination of weight based and a stress of 1 & 2. PLAN FOR INPATIENT GLYCEMIC CONTROL * Lantus 10u x1 now given his POC BSG of 164 and to ensure we are covering him metabolically. * Basal insulin with LANTUS scale: starting @2100 on 07/17/17: Less than 140 give 0u, 140-180 give 10u, greater than 180 give 15u * Correctional Insulin with NOVOLOG Q6hrs while NPO * Goal Range: Low 140 mg/dL - High 180 mg/dL while in the ICU * Correction Factor: 30 mg/dL/unit * Nutritional / Prandial insulin per carb ratio of 1 unit per 10 grams CHO consumed (once pt is ordered a diet) * Please note that the plan above was derived based on current level of insulin resistance and hospital stress. These recommendations are appropriate for inpatient admission only. Plan of care upon discharge will need to be reassessed to avoid potential outpatient hypo/hyperglycemia. Thank you.
--- NOTE | 2017-07-17 12:06 | Clinical Documentation Query ---
CLINICAL DOCUMENTATION QUERY 87 year old male who presents to the Emergency Room with complaints of persistent generalized pain. CHF is stated in statement and plan however dictation seems incomplete in EMR. In your clinical opinion is this patient being managed for: ( ) Acute on chronic systolic and diastolic CHF in setting of EDUAR on CKD stage 5 requiring dialysis now. ( x ) Not Agree ( ) Other explanation of clinical findings (Please Explain) ( ) Unable to determine (Please Define) ( ) Need to Discuss The medical record reflects the following clinical findings, treatment, and risk factors. Clinical Indicators: CHF per EMR w/o specificity. CXR showed vague perihilar opacities could suggest early pulmonary edema and Cardiomegaly. Echo showed EF of 35-40%, and grade II diastolic dysfunction. Treatment: IV Lasix, nephrology consult, surgical consult for dialysis catheter placement. Risk Factors: Age, CKD V, HTN, Please clarify and document your clinical opinion in the progress notes and discharge summary. Terms such as "probable", "suspected", "likely", "questionable", "possible", or "still to be ruled out" are acceptable. IF IN AGREEMENT, YOU MUST DOCUMENT ABOVE DIAGNOSTIC STATEMENT IN DAILY PROGRESS NOTES AND DISCHARGE SUMMARY. This document is not part of the patient's record. Thank You, Elbert Stephenson, GARCÍA [phone]
[2017-07-17] MEDS: HEPARIN SOD 5000 UNIT/0.5 ML CARP SQ SCH ×2 (13:59→21:44)
--- NOTE | 2017-07-17 16:02 | Progress Note ---
Medicine Progress Note Date & Time of Visit: Jul 17, 2017 at 15:52. Subjective 87 yo M who presents with hyperkalemia and acute on chronic renal failure. He was admitted to the ICU and underwent temporizing measures until a HD catheter could be placed this morning. He underwent HD this afternoon. He is somewhat responsive but not responding to most of my questions. He reports being in no pain but cannot tell me the events leading up to his hospitalization and he cannot tell me his name, location or the time. Tolerating PO. Objective Last 8 Hrs Date Time Temp Pulse Resp B/P (MAP) Pulse Ox O2 Delivery O2 Flow Rate FiO2 07/17/17 14:45 36.6 69 105/59 (74) 07/17/17 14:15 132 90/66 07/17/17 14:00 122 81/48 07/17/17 13:50 72 16 85/53 (64) 94 Nasal Cannula 2.0 07/17/17 13:45 72 85/53 07/17/17 13:30 78 83/48 07/17/17 13:15 113 81/73 07/17/17 13:01 117 20 91/57 (68) 100 Nasal Cannula 2.0 07/17/17 13:00 117 91/57 07/17/17 12:56 86 88/70 07/17/17 12:00 103 78/49 07/17/17 12:00 Nasal Cannula 2.0 07/17/17 11:45 115 83/43 07/17/17 11:38 113 100/69 07/17/17 11:31 36.7 113 20 100/69 (79) 96 Nasal Cannula 2.0 07/17/17 11:25 36.6 112 104/58 (73) 07/17/17 11:01 94 20 93/61 (72) 95 Nasal Cannula 2.0 07/17/17 10:01 113 17 98/60 (73) 96 Nasal Cannula 2.0 07/17/17 09:04 116 18 102/64 (77) 95 Nasal Cannula 2.0 07/17/17 08:31 118 18 82/51 (61) 96 Nasal Cannula 2.0 07/17/17 08:14 36.9 120 21 87/58 (68) 92 Nasal Cannula 2.0 07/17/17 08:00 Nasal Cannula 07/17/17 08:00 Nasal Cannula 2.0 Physical Exam: GEN: WNWD, in no acute distress, alert but not oriented to person, place or time. HEENT: NC/AT, pupils are equal and round bilaterally, normal sclerae CARDIO: reg rate, S1/2 heard without m/g/r LUNGS: CTA bilaterally, no crackles, rales or wheezes, good diaphragmatic excursion ABD: soft, non-tender, non-distended, no rebound or guarding, +BS EXTREMITY: RP and DP palpable 2+ bilat, no LE swelling or edema, extremities are warm and well-perfused NEURO: CN 2-12 grossly intact, no gross focal deficits. MUSC: moves all extremities equally, no gross focal deficits. SKIN: warm and dry Laboratory Results: 07/17/17 04:22 Red Blood Count 4.36, Mean Corpuscular Volume 87.4, Mean Corpuscular Hemoglobin 30.5, Mean Corpuscular Hemoglobin Concent 34.9, Mean Platelet Volume 10.5, Neutrophils (%) (Auto) 83.3, Lymphocytes (%) (Auto) 5.3, Monocytes (%) (Auto) 10.2, Eosinophils (%) (Auto) 0.7, Basophils (%) (Auto) 0.2, Neutrophils # (Auto ) 8.08, Lymphocytes # (Auto) 0.51, Monocytes # (Auto) 0.99, Eosinophils # (Auto ) 0.07, Basophils # (Auto) 0.02 07/17/17 10:44 Test 07/16/17 18:46 07/16/17 20:15 07/16/17 20:17 07/16/17 21:05 Prothrombin Time 10.2 SECONDS (9.0-12.0) Prothromb Time International Ratio 1.0 (0.9-1.1) Activated Partial Thromboplast Time 26.8 SECONDS (21.0-31.0) Partial Thromboplastin Ratio 1.0 Total Bilirubin 0.4 mg/dl (0.2-1) Direct Bilirubin < 0.1 mg/dl (0-0.2) Aspartate Amino Transf (AST/SGOT) 8 U/L (15-37) Alanine Aminotransferase (ALT/SGPT) 17 U/L (12-78) Alkaline Phosphatase 88 U/L (45-117) Total Protein 9.1 gm/dl (6.4-8.2) Albumin 3.6 gm/dl (3.4-5.0) Lipase 2153 U/L (73-393) Thyroid Stimulating Hormone (TSH) 0.955 uIu/ml (0.300-4.500) Bedside Lactic Acid Venous 1.01 mmol/L (0.90-1.70) Bedside Hemoglobin 12.9 g/dl (14.0-18.0) Bedside Hematocrit 38 % (42-52) Bedside Sodium 131 mEq/L (135-144) Bedside Potassium 7.3 mEq/L (3.3-5.0) Bedside Chloride 107 mEq/L (101-112) Bedside Total CO2 17 mEq/l (24-31) Bedside Blood Urea Nitrogen > 140 mg/dl (7-18) Bedside Creatinine 6.0 mg/dl (0.6-1.3) Bedside Glucose (other) 218 mg/dl (70-99) Bedside Ionized Calcium ([place]) 1.21 mmol/l (1.12-1.32) Urine Color YELLOW Urine Appearance TURBID (CLEAR) Urine pH 5.0 (4.5-7.5) Urine Specific [place] 1.016 (1.000-1.030) Urine Protein 1+ (NEG) Urine Glucose (UA) NEG (NEG) Urine Ketones NEG (NEG) Urine Occult Blood 3+ (NEG) Urine Nitrite NEG (NEG) Urine Bilirubin NEG (NEG) Urine Urobilinogen NEG (NEG) Urine Leukocyte Esterase LARGE (NEG) Urine WBC (Auto) >30 /hpf (0-5) Urine RBC (Auto) 10-30 /hpf (0-4) Urine Hyaline Casts (Auto) 0 /lpf (0-5) Urine Epithelial Cells (Auto) 10-20 /lpf (0-5) Urine Bacteria (Auto) NEG (NEG) Urine Pathogenic Casts /lpf (0) Test 07/17/17 01:20 07/17/17 04:22 07/17/17 07:31 07/17/17 08:39 Digoxin Level 0.7 ng/ml (0.8-2.0) White Blood Count 9.70 K/uL (4.8-10.8) Red Blood Count 4.36 M/uL (4.7-6.1) Hemoglobin 13.3 g/dL (14.0-18.0) Hematocrit 38.1 % (42-52) Mean Corpuscular Volume 87.4 fL (80-100) Mean Corpuscular Hemoglobin 30.5 pg (25-34) Mean Corpuscular Hemoglobin Concent 34.9 g/dl (32-36) Platelet Count 163 K/uL (130-400) Mean Platelet Volume 10.5 fL (7.4-10.4) Neutrophils (%) (Auto) 83.3 % Lymphocytes (%) (Auto) 5.3 % Monocytes (%) (Auto) 10.2 % Eosinophils (%) (Auto) 0.7 % Basophils (%) (Auto) 0.2 % Neutrophils # (Auto) 8.08 K/uL (1.4-6.5) Lymphocytes # (Auto) 0.51 K/uL (1.2-3.4) Monocytes # (Auto) 0.99 K/uL (0.11-0.59) Eosinophils # (Auto) 0.07 K/uL (0-0.5) Basophils # (Auto) 0.02 K/uL (0-0.2) RDW Standard Deviation 43.9 fL (36.4-46.3) RDW Coefficient of Variation 13.7 % (11.5-14.5) Immature Granulocyte % (Auto) 0.3 % Immature Granulocyte # (Auto) 0.03 K/uL (0.00-0.02) Magnesium Level 3.2 mg/dl (1.8-2.4) Bedside Glucose 142 mg/dl (70-99) Hepatitis B Surface Antigen NEG (NEG) Hepatitis B Surface Antibody POS Test 07/17/17 10:44 07/17/17 13:44 Anion Gap 13.0 mmol/L (3-11) Est Creatinine Clear Calc Drug Dose 13.4 ml/min Estimated GFR () 10.6 Estimated GFR (Non- 9.1 BUN/Creatinine Ratio 33.9 (10-20) Calcium Level 8.8 mg/dl (8.5-10.1) Creatine Kinase MB Ratio (0-3.0) Date/Time Source Procedure Growth Status 07/16/17 20:04 Blood Blood Culture Pending Received 07/16/17 22:45 Nasal MRSA DNA Surveillance Screen - Final Specimen Negative for MRSA by DNA Probe Complete 07/16/17 21:05 Urine,Catheterized Urine Culture - Preliminary PIN-POINT GROWTH PRESENT, REINCUBATING. Resulted Last 24 Hours Test 07/16/17 18:46 07/16/17 20:15 07/16/17 20:17 07/16/17 21:05 White Blood Count 12.42 K/uL Red Blood Count 4.88 M/uL Hemoglobin 14.8 g/dL Hematocrit 42.9 % Mean Corpuscular Volume 87.9 fL Mean Corpuscular Hemoglobin 30.3 pg Mean Corpuscular Hemoglobin Concent 34.5 g/dl Platelet Count 199 K/uL Mean Platelet Volume 11.2 fL Neutrophils (%) (Auto) 88.7 % Lymphocytes (%) (Auto) 4.7 % Monocytes (%) (Auto) 5.6 % Eosinophils (%) (Auto) 0.5 % Basophils (%) (Auto) 0.1 % Neutrophils # (Auto) 11.02 K/uL Lymphocytes # (Auto) 0.58 K/uL Monocytes # (Auto) 0.70 K/uL Eosinophils # (Auto) 0.06 K/uL Basophils # (Auto) 0.01 K/uL RDW Standard Deviation 44.4 fL RDW Coefficient of Variation 13.7 % Immature Granulocyte % (Auto) 0.4 % Immature Granulocyte # (Auto) 0.05 K/uL Prothrombin Time 10.2 SECONDS Prothromb Time International Ratio 1.0 Activated Partial Thromboplast Time 26.8 SECONDS Partial Thromboplastin Ratio 1.0 Sodium Level 127 mmol/L Potassium Level 6.9 mmol/L Chloride Level 98 mmol/L Carbon Dioxide Level 17 mmol/L Anion Gap 12.0 mmol/L 15.0 mmol/L Blood Urea Nitrogen 189 mg/dl Creatinine 6.25 mg/dl Est Creatinine Clear Calc Drug Dose 11.7 ml/min Estimated GFR () 8.6 Estimated GFR (Non- 7.5 BUN/Creatinine Ratio 30.2 Random Glucose 206 mg/dl Calcium Level 9.5 mg/dl Magnesium Level 3.5 mg/dl Total Bilirubin 0.4 mg/dl Direct Bilirubin < 0.1 mg/dl Aspartate Amino Transf (AST/SGOT) 8 U/L Alanine Aminotransferase (ALT/SGPT) 17 U/L Alkaline Phosphatase 88 U/L Total Creatine Kinase 30 U/L Creatine Kinase MB 2.2 ng/ml Creatine Kinase MB Ratio 7.3 Troponin I 0.023 ng/ml Total Protein 9.1 gm/dl Albumin 3.6 gm/dl Lipase 2153 U/L Thyroid Stimulating Hormone (TSH) 0.955 uIu/ml Bedside Lactic Acid Venous 1.01 mmol/L Bedside Hemoglobin 12.9 g/dl Bedside Hematocrit 38 % Bedside Sodium 131 mEq/L Bedside Potassium 7.3 mEq/L Bedside Chloride 107 mEq/L Bedside Total CO2 17 mEq/l Bedside Blood Urea Nitrogen > 140 mg/dl Bedside Creatinine 6.0 mg/dl Bedside Glucose (other) 218 mg/dl Bedside Ionized Calcium ([place]) 1.21 mmol/l Urine Color YELLOW Urine Appearance TURBID Urine pH 5.0 Urine Specific [place] 1.016 Urine Protein 1+ Urine Glucose (UA) NEG Urine Ketones NEG Urine Occult Blood 3+ Urine Nitrite NEG Urine Bilirubin NEG Urine Urobilinogen NEG Urine Leukocyte Esterase LARGE Urine WBC (Auto) >30 /hpf Urine RBC (Auto) 10-30 /hpf Urine Hyaline Casts (Auto) 0 /lpf Urine Epithelial Cells (Auto) 10-20 /lpf Urine Bacteria (Auto) NEG Urine Pathogenic Casts /lpf Test 07/17/17 01:20 07/17/17 04:22 07/17/17 06:04 07/17/17 07:31 White Blood Count 10.02 K/uL 9.70 K/uL Red Blood Count 4.32 M/uL 4.36 M/uL Hemoglobin 13.0 g/dL 13.3 g/dL Hematocrit 37.9 % 38.1 % Mean Corpuscular Volume 87.7 fL 87.4 fL Mean Corpuscular Hemoglobin 30.1 pg 30.5 pg Mean Corpuscular Hemoglobin Concent 34.3 g/dl 34.9 g/dl Platelet Count 159 K/uL 163 K/uL Mean Platelet Volume 10.4 fL 10.5 fL Neutrophils (%) (Auto) 87.0 % 83.3 % Lymphocytes (%) (Auto) 4.5 % 5.3 % Monocytes (%) (Auto) 7.9 % 10.2 % Eosinophils (%) (Auto) 0.3 % 0.7 % Basophils (%) (Auto) 0.1 % 0.2 % Neutrophils # (Auto) 8.72 K/uL 8.08 K/uL Lymphocytes # (Auto) 0.45 K/uL 0.51 K/uL Monocytes # (Auto) 0.79 K/uL 0.99 K/uL Eosinophils # (Auto) 0.03 K/uL 0.07 K/uL Basophils # (Auto) 0.01 K/uL 0.02 K/uL RDW Standard Deviation 43.8 fL 43.9 fL RDW Coefficient of Variation 13.7 % 13.7 % Immature Granulocyte % (Auto) 0.2 % 0.3 % Immature Granulocyte # (Auto) 0.02 K/uL 0.03 K/uL Sodium Level 131 mmol/L 132 mmol/L Potassium Level 6.3 mmol/L 5.8 mmol/L Chloride Level 103 mmol/L 102 mmol/L Carbon Dioxide Level 19 mmol/L 20 mmol/L Anion Gap 11.0 mmol/L 1.0 mmol/L Blood Urea Nitrogen 184 mg/dl 186 mg/dl Creatinine 5.67 mg/dl 5.50 mg/dl Est Creatinine Clear Calc Drug Dose 12.5 ml/min 12.9 ml/min Estimated GFR () 9.7 10.1 Estimated GFR (Non- 8.4 8.7 BUN/Creatinine Ratio 32.5 33.9 Random Glucose 166 mg/dl 151 mg/dl Calcium Level 8.8 mg/dl 9.0 mg/dl Digoxin Level 0.7 ng/ml Magnesium Level 3.2 mg/dl Total Creatine Kinase 26 U/L Creatine Kinase MB 2.2 ng/ml Creatine Kinase MB Ratio 8.5 Troponin I 0.026 ng/ml Bedside Glucose 145 mg/dl 142 mg/dl Test 07/17/17 08:39 07/17/17 10:44 07/17/17 13:44 Hepatitis B Surface Antigen NEG Hepatitis B Surface Antibody POS Sodium Level 133 mmol/L Potassium Level 5.6 mmol/L Chloride Level 101 mmol/L Carbon Dioxide Level 19 mmol/L Anion Gap 13.0 mmol/L Blood Urea Nitrogen 182 mg/dl Creatinine 5.29 mg/dl Est Creatinine Clear Calc Drug Dose 13.4 ml/min Estimated GFR () 10.6 Estimated GFR (Non- 9.1 BUN/Creatinine Ratio 33.9 Random Glucose 164 mg/dl Calcium Level 8.8 mg/dl Creatine Kinase MB Ratio Date/Time Source Procedure Growth Status 07/16/17 20:04 Blood Blood Culture Pending Received 07/16/17 18:46 Blood Blood Culture Pending Received 07/16/17 22:45 Nasal MRSA DNA Surveillance Screen - Final Specimen Negative for MRSA by DNA Probe Complete 07/16/17 21:05 Urine,Catheterized Urine Culture - Preliminary PIN-POINT GROWTH PRESENT, REINCUBATING. Resulted Assessment & Plan 87 yo M who presents with hyperkalemia and acute on chronic renal failure. He was admitted to the ICU and underwent temporizing measures until a HD catheter could be placed this morning. He underwent HD this afternoon. He is somewhat responsive but not responding to most of my questions. He reports being in no pain but cannot tell me the events leading up to his hospitalization and he cannot tell me his name, location or the time. 1. Hyperkalemia-received insulin, dextrose, calcium gluconate and bicarbonate in the ER . The patient has chronic kidney disease stage IV. Nephro consulted. Received HD catheter and HD today. 2. Acute renal failure, chronic kidney disease stage IV- plan as above. 3. Chronic congestive heart failure with EF of 40%- diuretics on hold. Management per ICU team. 4. CAD status post stent placement. Stable, no symptoms at this time. Continue aspirin, Plavix, beta kelly, nitrates and statin. Serial cardiac enzymes have been negative. 5. Hypertension. Slightly hypotensive at this time. Cont meds with hold parameters. 6. Chronic respiratory failure secondary to COPD-Stable, no wheezing on exam. On Advair and albuterol p.r.n. 7 Hx of A fib rate controlled on Toprol xl. Dig on hold in setting of worsening kidney function. Not on anticoagulation secondary to hematuria while on Coumadin. 8. BPH on Flomax recently had urinary retention. f/u with urology. Wallace in place. DVT proph-heparin, SCDs Full Code Dispo-ICU, ICU attending to attempt to get in touch with family members to establish more clear treatment goals. [facility] Hospital[facility] Consultants: ICU-Kim[facility]. Nephro-[facility] Current Inpatient Medications: Current Inpatient Medications Medications (Trade) Dose Ordered Sig/Ronak Route Start Time Stop Time Status Last Admin Dose Admin Hydromorphone HCl (Dilaudid Tab) 0.5 mg Q4H PRN PO 07/16/17 21:45 07/30/17 21:44 Aspirin (Ecotrin Tab) 81 mg QAM PO 07/17/17 09:00 08/16/17 08:59 07/17/17 07:32 81 MG Clopidogrel Bisulfate (plAVix TAB) 75 mg QAM PO 07/17/17 09:00 08/16/17 08:59 07/17/17 07:32 75 MG Finasteride (Proscar Tab) 5 mg HS PO 07/17/17 21:00 08/16/17 20:59 Salmeterol Xinafoate/ Fluticasone (Advair Diskus 250/50 Inh) 1 puff BID INH 07/17/17 09:00 08/16/17 08:59 07/17/17 07:32 1 PUFF Gabapentin (Neurontin Cap) 300 mg HS PO 07/17/17 21:00 08/16/17 20:59 Isosorbide Dinitrate (Isordil Tab) 5 mg TID@0700,1200,1700 PO 07/17/17 07:00 08/16/17 06:59 07/17/17 07:32 5 MG Nitroglycerin (Nitrostat Tab) 0.4 mg UD PRN UT 07/16/17 21:45 08/15/17 21:44 Simvastatin (Zocor Tab) 40 mg QPM PO 07/17/17 21:00 08/16/17 20:59 Tamsulosin HCl (Flomax Cap) 0.4 mg HS PO 07/17/17 21:00 08/16/17 20:59 Albuterol (Ventolin Hfa Inhaler) 2 puffs Q4H PRN INH 07/16/17 21:45 08/15/17 21:44 Metoprolol Succinate (Toprol Xl Tab) 100 mg DAILY PO 07/17/17 09:00 08/16/17 08:59 07/17/17 07:32 100 MG Ertapenem 500 mg/ Sodium Chloride 55 ml @ 110 mls/hr DAILY@2300 IV 07/16/17 23:30 07/26/17 23:29 07/16/17 23:34 110 MLS/HR Miscellaneous Information 1 ea UD PRN N/A 07/16/17 23:15 08/15/17 23:14 Sodium Bicarbonate 75 meq/Sodium Chloride 1,150 ml @ 100 mls/hr [id number] IV 07/17/17 08:45 08/16/17 08:44 07/17/17 09:28 100 MLS/HR Cefazolin Sodium 2000 mg/Syringe 10 ml @ 100 mls/hr PREOP IV 07/18/17 09:00 07/18/17 23:59 Miscellaneous Information (Consult Glycemic Management Pharmacy) 1 ea UD PRN N/A 07/17/17 10:40 08/16/17 10:39 Heparin Sodium (Porcine) (Heparin Sq 5000 Unit/0.5ml) 5,000 unit Q8 SQ 07/17/17 14:00 08/16/17 13:59 07/17/17 13:59 5,000 UNIT Insulin Aspart (novoLOG ASPART) SLIDING SCALE Q6 SC 07/17/17 12:00 08/16/17 11:59 Insulin Glargine (Lantus Solostar Pen) SEE PROTOCOL T... BID SC 07/17/17 21:00 08/16/17 20:59
[2017-07-17 18:34] LABS: CALCIUM 8.2 mg/dl (8.5-10.1); CREATININE 4.11 mg/dl (0.60-1.40); POTASSIUM 4.9 mmol/L (3.5-5.1)
[2017-07-17 18:38] LABS: CKMB 1.6 ng/ml (0.5-3.6)
[2017-07-17] MEDS ORDERED: ALBUMIN HUMAN 25% 12.5 GM/50 ML VIAL IV ONE (19:15)
[2017-07-17] MEDS: TAMSULOSIN HCL 0.4 MG CAP PO SCH (20:58)
[2017-07-17] MEDS: SIMVASTATIN 40 MG TAB PO SCH (20:59)
[2017-07-17] MEDS: GABAPENTIN 300 MG CAP PO SCH (20:59)
[2017-07-17] MEDS: FINASTERIDE 5 MG TAB PO SCH (20:59)
[2017-07-17] MEDS ORDERED: SODIUM BICARBONATE 8.4% INJ 75 MEQ in SODIUM CHLORIDE 0.45% 1000ML 1,000 ML IV SCH (21:00)
[2017-07-17] MEDS ORDERED: INSULIN GLARGINE SOLOSTAR 100 UNITS/ML 3 ML PEN SC SCH (21:00)
[2017-07-17] MEDS ORDERED: NURSING VERBAL MED ORDER ONE (21:00)
[2017-07-17] MEDS: METOPROLOL TARTRATE 1 MG/ML VIAL ONE ×2 (21:01→21:10)
[2017-07-17] MEDS: INSULIN GLARGINE SOLOSTAR 100 UNITS/ML 3 ML PEN SC SCH (21:16)
[2017-07-17] MEDS ORDERED: METOPROLOL TARTRATE 1 MG/ML VIAL IV STA (21:21)
--- NOTE | 2017-07-17 21:44 | DIAGNOSTIC IMAGING REPORT ---
KUB CLINICAL HISTORY: Placement of right femoral hemodialysis catheter. COMPARISON STUDY: CT of the abdomen and pelvis July 16, 2017. FINDINGS: The bowel gas pattern is normal. There has been interval placement of a right femoral catheter. Catheter tip projects over the confluence of the common iliac veins or the proximal IVC. IMPRESSION: Interval placement of a right femoral catheter. Catheter tip projects over the common iliac vein confluence or proximal IVC. Electronically signed by: Refugio Lr M.D. 07/17/2017 9:42 PM Dictated Date/Time: 07/17/2017 9:40 PM
[2017-07-17] MEDS: ERTAPENEM IV 500 MG in SODIUM CHLORIDE 0.9% 50 ML IV SCH (22:33)
--- NOTE | 2017-07-17 22:34 | Critical Care Progress Note ---
Critical Care Progress Note Date of Service Jul 17, 2017. ICU Day ICU Day Number: [address] Harris Subjective Complaints of being sleepy Objective VITAL SIGNS - Vital signs and nursing notes were reviewed. GENERAL - 87-year-old male appearing his stated age who is in no acute distress. Communicates well with provider and answers questions appropriately. SKIN - Without rashes. HEAD - NC/AT. MOUTH/OROPHARYNX - Without perioral cyanosis. Buccal mucosa pink and dry. Tongue midline with equal elevation of palate bilaterally. Edentulous. LUNGS -clear to auscultation bilaterally CARDIAC - RRR. No murmur, rubs, or gallops appreciated. ABDOMEN -soft nontender nondistended. PSYCH - A&Ox3 and cooperates fully with examiner. Current SOFA Score SOFA Score Response (Comments) Value Platelets (x10) > 150 0 Bilirubin (mg/dL) < 1.2 0 [place] Coma Score 15 0 Level of Hypotension No Hypotension 0 Creatinine (mg/dL) > 5.0 4 Total 4 Assessment & Plan (1) ARF (acute renal failure) (2) Dehydration (3) Hyperkalemia (4) Hypermagnesemia (5) Pancreatitis (6) Renal failure (7) HTN (hypertension) (8) COPD (chronic obstructive pulmonary disease) (9) CAD (coronary artery disease) (10) Chronic hypoxemic respiratory failure (11) CKD (chronic kidney disease), stage IV (12) Atrial fibrillation (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, chronic (14) DM2 (diabetes mellitus, type 2) (15) HLD (hyperlipidemia) Reason Critically Ill: 87-year-old male with a significant past medical history of kidney disease who presents with an acute renal failure on chronic disease with hyperkalemia requiring close cardiovascular monitoring and electrolyte replacement and possible need for urgent/emergent hemodialysis. Neuro - * CAM ICU: NEGATIVE * Continue Neurontin. Cardiac - * Extensive PMHx including CAD, PTCA w/ FARAZ, HLD, A. Fib, CHF: * Negative initial troponin despite ARF - Will trend. * EKG shows new LBBB from 05/26. * A. Fib - currently rate controlled on Dig. Will check Dig levels 2/2 ARF. * Not anticoagulated 2/2 hematuria previously. Will continue w/ rate control and monitor for any dysrhythmias. * Holding digoxin secondary to relative hypotension * Patient intermittently tachycardic will add 5 mg IV metoprolol * CHF in the setting of dehydration and ARF: * Judicious fluid resuscitation. * Monitor for volume overload - responded well to Lasix/BiPAP previously. * ECHO (05/25/2017): * Conclusions -- * There is mild concentric left ventricular hypertrophy. * The inferior and inferolateral carter are severely hypokinetic to akinetic at the basal, mid and apical levels. The inferoseptal wall is hypokinetic at the basal and mid levels. * Left ventricular systolic function is moderately reduced. * The LV Ejection Fraction = 35-40%. * There is mild tricuspid regurgitation. * Doppler findings do not suggest pulmonary hypertension. * Diastolic dysfunction, Grade II (pseudonormalization pattern). * Aortic valve sclerosis mild, without significant aortic valvular stenosis. * Compared to the prior study dated 11/13/16, there LVEF is unchanged. Respiratory - * COPD w/ oxygen dependence: * Currently on 2L NC. * Continue home breathing treatments. GI - * Pancreatitis w/ Lipase >2000 * CT abd/pelvis demonstrates gallstones. No acute findings otherwise. * NPO overnight w/ Sips/Chips * Repeat lipase in the morning RENAL/LYTES - * Acute Renal Failure on Chronic Kidney Disease: * Tolerated dialysis today * Hyperkalemia: * Repeat BMP - * Cystitis on CT w/ concerns of UTI per Urinalysis: * Pinpoint growth on urine culture, reintubating * palm sensitive Enterococcus Faecalis during most recent admission. * History of BPH: * Continue Finasteride/holding Flomax at this time. * Wallace Catheter to [place]. * Strict I&Os ENDO - * h/o DM: * ISS per protocol HEME - * Stable H&H. * Patient has a history of a PF 4 antibody positive, this was followed up with a serotonin release assay which was negative * Will proceed with heparin 5000 units every 8 hours for DVT prophylaxis ID - * Cystitis/UTI: * Initially received Ertapenem per admitting team. * Blood Cultures pending. LINES/IV ACCESS - * Placed temporary hemodialysis catheter in right femoral vein * During initial dialysis catheter was no longer functioning correctly this was over wired DVT PROPHYLAXIS - * Heparin sq * SCDs I have personally spent 35 minutes of critical care time in the direct management of this patient. This is a life/limb threatening event. This includes time spent evaluating patient, direct bedside care, chart review, placing orders, interpretation of diagnostic studies, discussion with consultants, patient, and family members, as well as other required patient management activities. This time is exclusive of all separately billable procedures, and teaching time and separate from and in addition to any other critical care service time. Consults & Procedures Consultants: Nephrology Vascular surgery Critical care medicine Procedures: Right femoral temporary hemodialysis catheter: 07/17/2017 Over wire of right temporary hemodialysis catheter: 07/17/2017 Data Medications: Current Inpatient Medications Medications (Trade) Dose Ordered Sig/Ronak Route Start Time Stop Time Status Last Admin Dose Admin Hydromorphone HCl (Dilaudid Tab) 0.5 mg Q4H PRN PO 07/16/17 21:45 07/30/17 21:44 Aspirin (Ecotrin Tab) 81 mg QAM PO 07/17/17 09:00 08/16/17 08:59 07/17/17 07:32 81 MG Clopidogrel Bisulfate (plAVix TAB) 75 mg QAM PO 07/17/17 09:00 08/16/17 08:59 07/17/17 07:32 75 MG Finasteride (Proscar Tab) 5 mg HS PO 07/17/17 21:00 08/16/17 20:59 07/17/17 20:59 5 MG Salmeterol Xinafoate/ Fluticasone (Advair Diskus 250/50 Inh) 1 puff BID INH 07/17/17 09:00 08/16/17 08:59 07/17/17 20:58 1 PUFF Gabapentin (Neurontin Cap) 300 mg HS PO 07/17/17 21:00 08/16/17 20:59 07/17/17 20:59 300 MG Isosorbide Dinitrate (Isordil Tab) 5 mg TID@0700,1200,1700 PO 07/17/17 07:00 08/16/17 06:59 07/17/17 07:32 5 MG Nitroglycerin (Nitrostat Tab) 0.4 mg UD PRN UT 07/16/17 21:45 08/15/17 21:44 Simvastatin (Zocor Tab) 40 mg QPM PO 07/17/17 21:00 08/16/17 20:59 07/17/17 20:59 40 MG Tamsulosin HCl (Flomax Cap) 0.4 mg HS PO 07/17/17 21:00 08/16/17 20:59 Albuterol (Ventolin Hfa Inhaler) 2 puffs Q4H PRN INH 07/16/17 21:45 08/15/17 21:44 Metoprolol Succinate (Toprol Xl Tab) 100 mg DAILY PO 07/17/17 09:00 08/16/17 08:59 07/17/17 07:32 100 MG Ertapenem 500 mg/ Sodium Chloride 55 ml @ 110 mls/hr DAILY@2300 IV 07/16/17 23:30 07/26/17 23:29 07/16/17 23:34 110 MLS/HR Miscellaneous Information 1 ea UD PRN N/A 07/16/17 23:15 08/15/17 23:14 Cefazolin Sodium 2000 mg/Syringe 10 ml @ 100 mls/hr PREOP IV 07/18/17 09:00 07/18/17 23:59 Miscellaneous Information (Consult Glycemic Management Pharmacy) 1 ea UD PRN N/A 07/17/17 10:40 08/16/17 10:39 Heparin Sodium (Porcine) (Heparin Sq 5000 Unit/0.5ml) 5,000 unit Q8 SQ 07/17/17 14:00 08/16/17 13:59 07/17/17 13:59 5,000 UNIT Insulin Aspart (novoLOG ASPART) SLIDING SCALE Q6 SC 07/17/17 12:00 08/16/17 11:59 Insulin Glargine (Lantus Solostar Pen) SEE PROTOCOL T... BID SC 07/17/17 21:00 08/16/17 20:59 07/17/17 21:16 10 UNITS Sodium Bicarbonate 75 meq/Sodium Chloride 1,075 ml @ 100 mls/hr [id number] IV 07/17/17 21:00 08/16/17 20:59 07/17/17 20:58 100 MLS/HR I & O: 24-Hour Column 07/18/17 08:00 Intake Total 1289 ml Output Total 400 ml Balance 889 ml Vital Signs: Date Time Temp Pulse Resp B/P (MAP) Pulse Ox O2 Delivery O2 Flow Rate FiO2 07/17/17 21:10 118 89/61 07/17/17 20:40 116 18 89/61 (70) 97 Nasal Cannula 3.0 07/17/17 20:00 95 Nasal Cannula 3.0 07/17/17 19:41 117 16 100/68 (79) 93 Nasal Cannula 3.0 07/17/17 19:00 94 18 82/51 (61) 96 Nasal Cannula 3.0 07/17/17 18:00 36.4 118 15 86/60 (69) 92 Nasal Cannula 3.0 07/17/17 16:00 36.3 100 18 98/60 (73) 93 Nasal Cannula 3.0 07/17/17 16:00 93 Nasal Cannula 3.0 07/17/17 14:45 36.6 69 105/59 (74) 07/17/17 14:15 132 90/66 07/17/17 14:00 122 81/48 07/17/17 13:50 72 16 85/53 (64) 94 Nasal Cannula 2.0 07/17/17 13:45 72 85/53 07/17/17 13:30 78 83/48 07/17/17 13:15 113 81/73 07/17/17 13:01 117 20 91/57 (68) 100 Nasal Cannula 2.0 07/17/17 13:00 117 91/57 07/17/17 12:56 86 88/70 07/17/17 12:00 103 78/49 07/17/17 12:00 Nasal Cannula 2.0 07/17/17 11:45 115 83/43 07/17/17 11:38 113 100/69 07/17/17 11:31 36.7 113 20 100/69 (79) 96 Nasal Cannula 2.0 07/17/17 11:25 36.6 112 104/58 (73) 07/17/17 11:01 94 20 93/61 (72) 95 Nasal Cannula 2.0 07/17/17 10:01 113 17 98/60 (73) 96 Nasal Cannula 2.0 07/17/17 09:04 116 18 102/64 (77) 95 Nasal Cannula 2.0 07/17/17 08:31 118 18 82/51 (61) 96 Nasal Cannula 2.0 07/17/17 08:14 36.9 120 21 87/58 (68) 92 Nasal Cannula 2.0 07/17/17 08:00 Nasal Cannula 07/17/17 08:00 Nasal Cannula 2.0 07/17/17 07:23 117 21 109/62 (78) 93 Nasal Cannula 2.0 07/17/17 06:00 116 17 96/64 (75) 94 2.0 07/17/17 04:00 95 Nasal Cannula 2.0 07/17/17 04:00 36.4 110 18 111/67 (82) 94 Nasal Cannula 2.0 07/17/17 02:00 112 18 99/66 (77) 97 Nasal Cannula 2.0 07/17/17 00:01 36.6 109 20 113/62 (79) 96 Nasal Cannula 2.0 07/16/17 23:59 95 Nasal Cannula 2.0 07/16/17 22:30 36.4 108 20 102/74 96 Nasal Cannula 2.0 07/16/17 22:13 108 18 107/84 100 Laboratory Results: Last 24 Hours Test 07/17/17 01:20 07/17/17 04:22 07/17/17 06:04 07/17/17 07:31 White Blood Count 10.02 K/uL 9.70 K/uL Red Blood Count 4.32 M/uL 4.36 M/uL Hemoglobin 13.0 g/dL 13.3 g/dL Hematocrit 37.9 % 38.1 % Mean Corpuscular Volume 87.7 fL 87.4 fL Mean Corpuscular Hemoglobin 30.1 pg 30.5 pg Mean Corpuscular Hemoglobin Concent 34.3 g/dl 34.9 g/dl Platelet Count 159 K/uL 163 K/uL Mean Platelet Volume 10.4 fL 10.5 fL Neutrophils (%) (Auto) 87.0 % 83.3 % Lymphocytes (%) (Auto) 4.5 % 5.3 % Monocytes (%) (Auto) 7.9 % 10.2 % Eosinophils (%) (Auto) 0.3 % 0.7 % Basophils (%) (Auto) 0.1 % 0.2 % Neutrophils # (Auto) 8.72 K/uL 8.08 K/uL Lymphocytes # (Auto) 0.45 K/uL 0.51 K/uL Monocytes # (Auto) 0.79 K/uL 0.99 K/uL Eosinophils # (Auto) 0.03 K/uL 0.07 K/uL Basophils # (Auto) 0.01 K/uL 0.02 K/uL RDW Standard Deviation 43.8 fL 43.9 fL RDW Coefficient of Variation 13.7 % 13.7 % Immature Granulocyte % (Auto) 0.2 % 0.3 % Immature Granulocyte # (Auto) 0.02 K/uL 0.03 K/uL Sodium Level 131 mmol/L 132 mmol/L Potassium Level 6.3 mmol/L 5.8 mmol/L Chloride Level 103 mmol/L 102 mmol/L Carbon Dioxide Level 19 mmol/L 20 mmol/L Anion Gap 11.0 mmol/L 1.0 mmol/L Blood Urea Nitrogen 184 mg/dl 186 mg/dl Creatinine 5.67 mg/dl 5.50 mg/dl Est Creatinine Clear Calc Drug Dose 12.5 ml/min 12.9 ml/min Estimated GFR () 9.7 10.1 Estimated GFR (Non- 8.4 8.7 BUN/Creatinine Ratio 32.5 33.9 Random Glucose 166 mg/dl 151 mg/dl Calcium Level 8.8 mg/dl 9.0 mg/dl Digoxin Level 0.7 ng/ml Magnesium Level 3.2 mg/dl Total Creatine Kinase 26 U/L Creatine Kinase MB 2.2 ng/ml Creatine Kinase MB Ratio 8.5 Troponin I 0.026 ng/ml Bedside Glucose 145 mg/dl 142 mg/dl Test 07/17/17 08:39 07/17/17 10:44 07/17/17 17:38 07/17/17 18:03 Hepatitis B Surface Antigen NEG Hepatitis B Surface Antibody POS Sodium Level 133 mmol/L 135 mmol/L Potassium Level 5.6 mmol/L 4.9 mmol/L Chloride Level 101 mmol/L 100 mmol/L Carbon Dioxide Level 19 mmol/L 26 mmol/L Anion Gap 13.0 mmol/L 8.0 mmol/L Blood Urea Nitrogen 182 mg/dl 127 mg/dl Creatinine 5.29 mg/dl 4.11 mg/dl Est Creatinine Clear Calc Drug Dose 13.4 ml/min 17.2 ml/min Estimated GFR () 10.6 14.3 Estimated GFR (Non- 9.1 12.4 BUN/Creatinine Ratio 33.9 31.0 Random Glucose 164 mg/dl 158 mg/dl Calcium Level 8.8 mg/dl 8.2 mg/dl Bedside Glucose 148 mg/dl Total Creatine Kinase 27 U/L Creatine Kinase MB 1.6 ng/ml Creatine Kinase MB Ratio 5.9 Troponin I 0.038 ng/ml Test 07/17/17 21:13 Bedside Glucose 143 mg/dl Problem Qualifiers (1) ARF (acute renal failure): Acute renal failure type: unspecified Qualified Codes: N17.9 - Acute kidney failure, unspecified
[2017-07-17 23:02] LABS: CREATININE 4.09 mg/dl (0.60-1.40); POTASSIUM 4.5 mmol/L (3.5-5.1)
[2017-07-18] VITALS (38 sets, daily range): BP systolic 70–120; BP diastolic 42–80; PULSE 60–117; TEMP 36.4–36.9; O2SAT 89–100
[2017-07-18 05:11] LABS: BASO % 0.3 %; BASO ABS # 0.02 K/uL (0-0.2); EOS % 1.6 %; EOS ABS # 0.12 K/uL (0-0.5); HEMOGLOBIN 10.7 g/dL (14.0-18.0); IG# 0.04 K/uL (0.00-0.02); LYMPH % 7.2 %; LYMPH ABS # 0.55 K/uL (1.2-3.4); MEAN CELL VOLUME 87.9 fL (80-100); MEAN CORPUSCULAR HEMOGLOBIN 29.4 pg (25-34); MEAN CORPUSCULAR HGB CONC 33.4 g/dl (32-36); MEAN PLATELET VOLUME 10.8 fL (7.4-10.4); MONO % 11.6 %; MONO ABS # 0.88 K/uL (0.11-0.59); NEUT % 78.8 %; NEUT ABS # 5.98 K/uL (1.4-6.5); PLATELET COUNT 110 K/uL (130-400); RED CELL DISTRIBUTION WIDTH CV 13.7 % (11.5-14.5); RED CELL DISTRIBUTION WIDTH SD 44.2 fL (36.4-46.3); WHITE BLOOD COUNT 7.59 K/uL (4.8-10.8)
[2017-07-18 05:34] LABS: CALCIUM 8.2 mg/dl (8.5-10.1); CREATININE 4.16 mg/dl (0.60-1.40); PHOSPHORUS 6.1 mg/dl (2.5-4.9); POTASSIUM 4.7 mmol/L (3.5-5.1)
[2017-07-18] MEDS: HEPARIN SOD 5000 UNIT/0.5 ML CARP SQ SCH ×3 (05:39→20:46)
[2017-07-18] MEDS: INSULIN ASPART 100 UNITS/ML 3 ML PEN SC SCH ×5 (05:45→20:48)
[2017-07-18 06:35] LABS: HEMOGLOBIN A1C 7.2 % (4.5-5.6)
--- NOTE | 2017-07-18 07:09 | Nephrology Progress Note ---
Nephrology Progress Note Date of Service: Jul 18, 2017. Subjective 87 yo male with ckd stage 5 who presented with hyperkalemia and hypermagnesemia and uremic symptoms. had temporary dialysis catheter placed. it needed exchanged over a wire secondary to clotting. underwent a 2 hour treatment. tolerated it well. pt comfortable this morning but continues to be tired with decreased appetite. for tunneled line today. Objective Date Time Temp Pulse Resp B/P (MAP) Pulse Ox O2 Delivery O2 Flow Rate FiO2 07/18/17 06:00 115 21 95/56 (69) 97 Nasal Cannula 3.0 07/18/17 04:00 96 Nasal Cannula 3.0 07/18/17 04:00 36.8 112 22 108/73 (85) 96 Nasal Cannula 3.0 07/18/17 02:00 117 17 112/69 (83) 98 Nasal Cannula 3.0 07/18/17 00:01 36.8 115 16 105/69 (81) 97 Nasal Cannula 3.0 07/17/17 23:59 95 Nasal Cannula 3.0 07/17/17 21:32 112 19 103/71 (82) 95 Nasal Cannula 3.0 07/17/17 21:30 114 14 103/71 (82) 97 Nasal Cannula 3.0 07/17/17 21:10 118 89/61 07/17/17 20:40 116 18 89/61 (70) 97 Nasal Cannula 3.0 07/17/17 20:00 95 Nasal Cannula 3.0 07/17/17 19:41 117 16 100/68 (79) 93 Nasal Cannula 3.0 07/17/17 19:00 94 18 82/51 (61) 96 Nasal Cannula 3.0 07/17/17 18:00 36.4 118 15 86/60 (69) 92 Nasal Cannula 3.0 07/17/17 16:00 36.3 100 18 98/60 (73) 93 Nasal Cannula 3.0 07/17/17 16:00 93 Nasal Cannula 3.0 07/17/17 14:45 36.6 69 105/59 (74) 07/17/17 14:15 132 90/66 07/17/17 14:00 122 81/48 07/17/17 13:50 72 16 85/53 (64) 94 Nasal Cannula 2.0 07/17/17 13:45 72 85/53 07/17/17 13:30 78 83/48 07/17/17 13:15 113 81/73 07/17/17 13:01 117 20 91/57 (68) 100 Nasal Cannula 2.0 07/17/17 13:00 117 91/57 07/17/17 12:56 86 88/70 07/17/17 12:00 103 78/49 07/17/17 12:00 Nasal Cannula 2.0 07/17/17 11:45 115 83/43 07/17/17 11:38 113 100/69 07/17/17 11:31 36.7 113 20 100/69 (79) 96 Nasal Cannula 2.0 07/17/17 11:25 36.6 112 104/58 (73) 07/17/17 11:01 94 20 93/61 (72) 95 Nasal Cannula 2.0 07/17/17 10:01 113 17 98/60 (73) 96 Nasal Cannula 2.0 07/17/17 09:04 116 18 102/64 (77) 95 Nasal Cannula 2.0 07/17/17 08:31 118 18 82/51 (61) 96 Nasal Cannula 2.0 07/17/17 08:14 36.9 120 21 87/58 (68) 92 Nasal Cannula 2.0 07/17/17 08:00 Nasal Cannula 07/17/17 08:00 Nasal Cannula 2.0 07/17/17 07:23 117 21 109/62 (78) 93 Nasal Cannula 2.0 Physical Exam: General-aaox3 Eyes-no scleral icterus ENT-mmm Neck-supple Lungs-decreased at bases Heart-tachycardia Abdomen-bs+ s/nt/nd Extremities-no c/c/e Neuro-nonfocal Current Inpatient Medications Medications (Trade) Dose Ordered Sig/Ronak Route Start Time Stop Time Status Last Admin Dose Admin Hydromorphone HCl (Dilaudid Tab) 0.5 mg Q4H PRN PO 07/16/17 21:45 07/30/17 21:44 Aspirin (Ecotrin Tab) 81 mg QAM PO 07/17/17 09:00 08/16/17 08:59 07/17/17 07:32 81 MG Clopidogrel Bisulfate (plAVix TAB) 75 mg QAM PO 07/17/17 09:00 08/16/17 08:59 07/17/17 07:32 75 MG Finasteride (Proscar Tab) 5 mg HS PO 07/17/17 21:00 08/16/17 20:59 07/17/17 20:59 5 MG Salmeterol Xinafoate/ Fluticasone (Advair Diskus 250/50 Inh) 1 puff BID INH 07/17/17 09:00 08/16/17 08:59 07/17/17 20:58 1 PUFF Gabapentin (Neurontin Cap) 300 mg HS PO 07/17/17 21:00 08/16/17 20:59 07/17/17 20:59 300 MG Isosorbide Dinitrate (Isordil Tab) 5 mg TID@0700,1200,1700 PO 07/17/17 07:00 08/16/17 06:59 07/17/17 07:32 5 MG Nitroglycerin (Nitrostat Tab) 0.4 mg UD PRN UT 07/16/17 21:45 08/15/17 21:44 Simvastatin (Zocor Tab) 40 mg QPM PO 07/17/17 21:00 08/16/17 20:59 07/17/17 20:59 40 MG Tamsulosin HCl (Flomax Cap) 0.4 mg HS PO 07/17/17 21:00 08/16/17 20:59 Albuterol (Ventolin Hfa Inhaler) 2 puffs Q4H PRN INH 07/16/17 21:45 08/15/17 21:44 Metoprolol Succinate (Toprol Xl Tab) 100 mg DAILY PO 07/17/17 09:00 08/16/17 08:59 07/17/17 07:32 100 MG Ertapenem 500 mg/ Sodium Chloride 55 ml @ 110 mls/hr DAILY@2300 IV 07/16/17 23:30 07/26/17 23:29 07/17/17 22:33 110 MLS/HR Miscellaneous Information 1 ea UD PRN N/A 07/16/17 23:15 08/15/17 23:14 Cefazolin Sodium 2000 mg/Syringe 10 ml @ 100 mls/hr PREOP IV 07/18/17 09:00 07/18/17 23:59 Miscellaneous Information (Consult Glycemic Management Pharmacy) 1 ea UD PRN N/A 07/17/17 10:40 08/16/17 10:39 Heparin Sodium (Porcine) (Heparin Sq 5000 Unit/0.5ml) 5,000 unit Q8 SQ 07/17/17 14:00 08/16/17 13:59 07/18/17 05:39 5,000 UNIT Insulin Aspart (novoLOG ASPART) SLIDING SCALE Q6 SC 07/17/17 12:00 08/16/17 11:59 Insulin Glargine (Lantus Solostar Pen) SEE PROTOCOL T... BID SC 07/17/17 21:00 08/16/17 20:59 07/17/17 21:16 10 UNITS Last 24 Hours Test 07/17/17 07:31 07/17/17 08:39 07/17/17 10:44 07/17/17 17:38 Bedside Glucose 142 mg/dl 148 mg/dl Hepatitis B Surface Antigen NEG Hepatitis B Surface Antibody POS Hepatitis B Core Total Antibody REACTIVE Sodium Level 133 mmol/L Potassium Level 5.6 mmol/L Chloride Level 101 mmol/L Carbon Dioxide Level 19 mmol/L Anion Gap 13.0 mmol/L Blood Urea Nitrogen 182 mg/dl Creatinine 5.29 mg/dl Est Creatinine Clear Calc Drug Dose 13.4 ml/min Estimated GFR () 10.6 Estimated GFR (Non- 9.1 BUN/Creatinine Ratio 33.9 Random Glucose 164 mg/dl Calcium Level 8.8 mg/dl Test 07/17/17 18:03 07/17/17 21:13 07/17/17 22:27 07/17/17 23:59 Sodium Level 135 mmol/L 134 mmol/L Potassium Level 4.9 mmol/L 4.5 mmol/L Chloride Level 100 mmol/L 100 mmol/L Carbon Dioxide Level 26 mmol/L 25 mmol/L Anion Gap 8.0 mmol/L 9.0 mmol/L Blood Urea Nitrogen 127 mg/dl 130 mg/dl Creatinine 4.11 mg/dl 4.09 mg/dl Est Creatinine Clear Calc Drug Dose 17.2 ml/min 17.3 ml/min Estimated GFR () 14.3 14.4 Estimated GFR (Non- 12.4 12.4 BUN/Creatinine Ratio 31.0 31.7 Random Glucose 158 mg/dl 152 mg/dl Calcium Level 8.2 mg/dl 8.0 mg/dl Total Creatine Kinase 27 U/L Creatine Kinase MB 1.6 ng/ml Creatine Kinase MB Ratio 5.9 Troponin I 0.038 ng/ml Bedside Glucose 143 mg/dl 147 mg/dl Test 07/18/17 04:36 07/18/17 05:42 White Blood Count 7.59 K/uL Red Blood Count 3.64 M/uL Hemoglobin 10.7 g/dL Hematocrit 32.0 % Mean Corpuscular Volume 87.9 fL Mean Corpuscular Hemoglobin 29.4 pg Mean Corpuscular Hemoglobin Concent 33.4 g/dl Platelet Count 110 K/uL Mean Platelet Volume 10.8 fL Neutrophils (%) (Auto) 78.8 % Lymphocytes (%) (Auto) 7.2 % Monocytes (%) (Auto) 11.6 % Eosinophils (%) (Auto) 1.6 % Basophils (%) (Auto) 0.3 % Neutrophils # (Auto) 5.98 K/uL Lymphocytes # (Auto) 0.55 K/uL Monocytes # (Auto) 0.88 K/uL Eosinophils # (Auto) 0.12 K/uL Basophils # (Auto) 0.02 K/uL RDW Standard Deviation 44.2 fL RDW Coefficient of Variation 13.7 % Immature Granulocyte % (Auto) 0.5 % Immature Granulocyte # (Auto) 0.04 K/uL Sodium Level 135 mmol/L Potassium Level 4.7 mmol/L Chloride Level 102 mmol/L Carbon Dioxide Level 27 mmol/L Anion Gap 6.0 mmol/L Blood Urea Nitrogen 136 mg/dl Creatinine 4.16 mg/dl Est Creatinine Clear Calc Drug Dose 17.0 ml/min Estimated GFR () 14.1 Estimated GFR (Non- 12.2 BUN/Creatinine Ratio 32.6 Random Glucose 135 mg/dl Estimated Average Glucose 160 mg/dl Hemoglobin A1c 7.2 % Calcium Level 8.2 mg/dl Phosphorus Level 6.1 mg/dl Magnesium Level 2.8 mg/dl Lipase 710 U/L Bedside Glucose 132 mg/dl Assessment & Plan CKD stage 5-for tunneled line today. will plan on another short dialysis treatment today after the line placement. hypermag-mag improved from 3.5 to 2.8. should continue to trend down. hyperkalemia-k has improved from 6.9 to 4.7.
--- NOTE | 2017-07-18 07:27 | DIAGNOSTIC IMAGING REPORT ---
CHEST ONE VIEW PORTABLE CLINICAL HISTORY: CONGESTION COMPARISON STUDY: 07/17/2017 FINDINGS: The heart remains enlarged. There is radiographic evidence of emphysema. There is scattered granulomatous calcifications present. There is no overt failure. Slight coarsening of interstitial markings at the right lung base remains unchanged.[ IMPRESSION: Stable findings. Emphysema. Evidence for prior granulomatous disease. Stable right basilar interstitial thickening Electronically signed by: Roberto Yousif M.D. 07/18/2017 7:26 AM Dictated Date/Time: 07/18/2017 7:24 AM
[2017-07-18] MEDS ORDERED: METOPROLOL TARTRATE 1 MG/ML VIAL ONE (08:03)
[2017-07-18] MEDS ORDERED: FUROSEMIDE INJ 80 MG in SYRINGE 0 ML IV ONE (08:30)
[2017-07-18] MEDS: ISOSORBIDE DINITRATE 5 MG TAB PO SCH ×3 (08:33→17:00)
[2017-07-18] MEDS: FLUTICASONE/SALMETEROL 250/50 (ADVAIR) 14 PUFF/1 INHALER INH SCH ×2 (08:34→20:35)
[2017-07-18] MEDS: INSULIN GLARGINE SOLOSTAR 100 UNITS/ML 3 ML PEN SC SCH ×2 (08:34→20:47)
[2017-07-18] MEDS ORDERED: CEFAZOLIN SOD 2000MG/10 ML IV PUSH IV ONE (08:48)
[2017-07-18] MEDS ORDERED: CEFAZOLIN IV 2,000 MG in SYRINGE 0 ML IV SCH (09:00)
[2017-07-18] MEDS ORDERED: DIGOXIN 0.125 MG TAB PO ONE (09:00)
[2017-07-18] MEDS: METOPROLOL SUCC 50MG EXT REL TAB PO SCH (09:00)
--- NOTE | 2017-07-18 09:25 | Progress Note ---
Progress Note Date of Service Jul 18, 2017. Progress Note Patient for insertion of permcath today. I have discussed the risks options and benefits of the procedure with the patient. The patient understands the risks options and benefits and agrees to the procedure. I have examined the patient, reviewed the History & Physical and in the interval since the performance of the History & Physical I have noted the following changes of clinical significance: No changes noted
[2017-07-18] MEDS ORDERED: LIDOCAINE HCL 2% 2 ML VIAL (20MG/ML) ONE (09:35)
[2017-07-18] MEDS ORDERED: FENTANYL CITRATE INJ 50 MCG/1 ML 2 ML VIAL ONE (09:36)
[2017-07-18] MEDS ORDERED: PROPOFOL IV EMULSION 10 MG/ML 20 ML VIAL IV ONE (09:36)
[2017-07-18] MEDS ORDERED: MIDAZOLAM HCL 1 MG/ML 2ML VIAL ONE (09:36)
[2017-07-18] MEDS ORDERED: HEPARIN SOD (PORCINE) 5000 UNIT/ML 1 ML VIAL ONE (10:06)
[2017-07-18] MEDS ORDERED: ATROPINE SULFATE 0.1 MG/ML 5ML SYR IV PRN (10:15)
[2017-07-18] MEDS ORDERED: FENTANYL CITRATE INJ 50 MCG/1 ML 2 ML VIAL IV PRN (10:15)
[2017-07-18] MEDS ORDERED: ONDANSETRON INJ 2 MG/ML 2 ML VIAL IV PRN (10:15)
[2017-07-18] MEDS ORDERED: EpHEDrine SULFATE INJ 50 MG/ML AMP IV PRN (10:15)
[2017-07-18] MEDS ORDERED: LIDOCAINE HCL 1% 20 ML VIAL INJ ONE (10:38)
[2017-07-18] MEDS ORDERED: HEPARIN SOD (PORCINE) 5000 UNIT/ML 1 ML VIAL IV ONE (10:38)
--- NOTE | 2017-07-18 10:41 | [facility] Post Operative Brief Note ---
Immediate Operative Summary Operative Date Jul 18, 2017. Pre-Operative Diagnosis Acute Renal Failure Post-Operative Diagnosis Same Procedure(s) Performed Perm Cath Insertion, Right Jugular Approach Ultrasound Localization of Right Jugular Vein Fluoscopy for Positioning Removal of Temporary Catheter Surgeon Linda Marine Service Operator Surgeon(s) Tamera Estimated Blood Loss 4cc Findings tip in distal SVC Specimens None Anesthesia MAC Complication(s) None Disposition Recovery Room / PACU
--- NOTE | 2017-07-18 10:45 | [facility] Operative Report ---
Operative Report Operative Date Jul 18, 2017. Pre-Operative Diagnosis Acute Renal Failure Post-Operative Diagnosis Same Procedure(s) Performed Perm Cath Insertion, Right Jugular Approach Ultrasound Localization of Right Jugular Vein Fluoscopy for Positioning Removal of Temporary Catheter Surgeon Linda Baffle Installer Surgeon(s) Tamera Estimated Blood Loss 4cc Findings Perm cath tip in SVC Specimens None Drains 19 cm Perm Cath in R IJ Anesthesia MAC Complication(s) None Disposition Surgical ICU Indications 87 y/o with ESRD, with temporary line, need permanent access Description of Procedure Patient was takent to the angio suite and placed in the supine position. The right side of the neck and chest wall were prepped and draped in a sterile manner. Local anesthesia was then administered to the appropriate areas of the neck and chest wall. Ultrasound was then used to locate the right internal jugular v ein. The vein compressed easily, had no filing defects, and was patent. The vein was then punctured under direct ultrasound imaging. A guidewire was then passed centrally under fluoroscopic imaging. A stab wound was then made in the anterior chest wall and a 19 cm permcath was passed from the stab wound on the chest wall to the puncture site on the neck. The puncture site was then dilated till the 14Fr peel away sheath was inserted. The permcath was then inserted through the sheath to a central position in the distal superior vena cava. The peel away sheath was then removed. The catheter was then sutured in place using nylon sutures. The puncture was then closed using a 4-0 Vicryl subcuticular suture. Dermabond was used for a dressing on the puncture site. Both ports aspirated and flushed easily and were then packed with heparin. A sterile dressing was applied to the catheter. The patient left the angio suite in good condition and tolerated the procedure well. I, Dr. Mckeon was present and scrubbed for the entire procedure. I attest to the content of the Intraoperative Record and any orders documented therein. Any exceptions are noted below.
--- NOTE | 2017-07-18 11:32 | Anesthesiology Progress Note ---
Anesthesia Post Op Note Date & Time Jul 18, 2017 at 11:32 Vital Signs Pain Intensity: 0.0 Vital Signs Past 12 Hours Date Time Temp Pulse Resp B/P (MAP) Pulse Ox O2 Delivery O2 Flow Rate FiO2 07/18/17 11:05 36.6 114 21 98/71 (80) 100 Nasal Cannula 2.0 07/18/17 08:33 114 96/60 07/18/17 08:32 115 19 96/60 (72) 97 Nasal Cannula 3.0 07/18/17 08:32 115 07/18/17 08:01 36.6 114 12 88/58 (68) 97 Nasal Cannula 3.0 07/18/17 08:00 Nasal Cannula 07/18/17 08:00 Nasal Cannula 3.0 07/18/17 07:31 114 14 107/62 (77) 94 Nasal Cannula 3.0 07/18/17 07:01 115 20 103/78 (86) 97 Nasal Cannula 3.0 07/18/17 06:00 115 21 95/56 (69) 97 Nasal Cannula 3.0 07/18/17 04:00 96 Nasal Cannula 3.0 07/18/17 04:00 36.8 112 22 108/73 (85) 96 Nasal Cannula 3.0 07/18/17 02:00 117 17 112/69 (83) 98 Nasal Cannula 3.0 07/18/17 00:01 36.8 115 16 105/69 (81) 97 Nasal Cannula 3.0 07/17/17 23:59 95 Nasal Cannula 3.0 Notes Mental Status: alert / awake / arousable, participated in evaluation Pt Amnestic to Procedure: Yes Nausea / Vomiting: adequately controlled Pain: adequately controlled Airway Patency, RR, SpO2: stable & adequate BP & HR: stable & adequate Hydration State: stable & adequate Anesthetic Complications: no major complications apparent Patient awake and stable, returned from OR to ICU.
[2017-07-18] MEDS ORDERED: NURSING VERBAL MED ORDER ONE ×3 (14:00→22:00)
[2017-07-18] MEDS: CLOPIDOGREL BISULFATE 75 MG TAB PO SCH (14:05)
[2017-07-18] MEDS: ASPIRIN 81 MG ECTAB PO SCH (14:05)
--- NOTE | 2017-07-18 18:03 | Progress Note ---
Internal Med Progress Note Date of Service: Jul 18, 2017. Provider Documentation: SUBJECTIVE: somewhat sleepy but arousable denies any pain or sob ok for tunnel cath today afebrile no nausea OBJECTIVE: Vital Signs-as noted below Exam: General-alert and awake somewhat sleepy. not in distress ENT-Normal hearing Neck-no neck masses Lungs-Cta b/l no wheezing or crackles Heart-S1 and S2 heard regular No murmurs Abdomen-Soft Bowel sounds present Non tender No distension Extremities-No edema No erythema Neuro-alert and awake moves extremities Lab data as noted below. ASSESSMENT & PLAN: : This is an 87-year-old male who presents with hyperkalemia and acute renal failure and chronic kidney disease stage IV. 1. Hyperkalemia. The patient received insulin, dextrose, calcium gluconate and bicarbonate in the ER . The patient has chronic kidney disease stage IV and need dialysis . Refused dialysis multiple times in the past but agreeable now. Intially was on bicarb drip. Currently getting dialysis. 2. Acute renal failure, chronic kidney disease stage IV. Dialysis as pe nephrology. Plan for tunnel cath. 3. Chronic congestive heart failure with EF of 40%, holding diuretics . Getting dialysis. 4. CAd status post stent placement. Continue aspirin, Plavix, beta kelly, nitrates and statin. stable 4. Hypertension. Continue nitrates and Toprol-XL will monitor 5 Chronic respiratory failure secondary to chronic obstructive pulmonary disease. Stable. On Advair and albuterol p.r.n. 6 Hx of A fib rate controlled on Toprol xl holding digoxin for renal failure. Not on anticoagulation secondary to hematuria while on Coumadin.. 7. BPH on Flomax recently had urinary retention. f/u with urology. placed on chambers in ER and drained good amount of urine. 8. Dvt px scds Disposition close monitor in icu code status full code for now Vital Signs: Date Time Temp Pulse Resp B/P (MAP) Pulse Ox O2 Delivery O2 Flow Rate FiO2 07/18/17 16:15 36.4 98 117/65 (82) 07/18/17 16:02 36.9 117 12 113/66 (82) 91 Nasal Cannula 2.0 07/18/17 16:00 95 91/42 07/18/17 16:00 Nasal Cannula 2.0 07/18/17 15:45 89 87/46 07/18/17 15:30 60 90/48 07/18/17 15:18 114 88/67 07/18/17 15:00 103 91/54 07/18/17 14:45 98 98/62 07/18/17 14:30 82 103/71 07/18/17 14:15 90 100/62 07/18/17 14:01 112 15 104/80 (88) 95 Nasal Cannula 2.0 07/18/17 14:00 114 104/60 07/18/17 13:45 36.5 117 96/49 (65) 07/18/17 13:31 110 16 96/56 (69) 96 Nasal Cannula 4.0 07/18/17 13:01 104 19 84/51 (62) 95 Nasal Cannula 4.0 07/18/17 12:43 102 16 99/58 (72) 95 Nasal Cannula 4.0 07/18/17 12:41 109 18 75/50 (58) 94 Nasal Cannula 4.0 07/18/17 12:31 92 18 70/47 (55) 94 Nasal Cannula 4.0 07/18/17 12:01 101 16 95/54 (68) 95 Nasal Cannula 4.0 07/18/17 12:00 Nasal Cannula 4.0 07/18/17 11:46 108 19 96/63 (74) 92 Nasal Cannula 4.0 07/18/17 11:31 111 20 106/68 (81) 93 Nasal Cannula 2.0 07/18/17 11:16 109 26 120/63 (82) 89 Nasal Cannula 2.0 07/18/17 11:05 36.6 114 21 98/71 (80) 100 Nasal Cannula 2.0 07/18/17 08:33 114 96/60 07/18/17 08:32 115 19 96/60 (72) 97 Nasal Cannula 3.0 07/18/17 08:32 115 07/18/17 08:01 36.6 114 12 88/58 (68) 97 Nasal Cannula 3.0 07/18/17 08:00 Nasal Cannula 07/18/17 08:00 Nasal Cannula 3.0 07/18/17 07:31 114 14 107/62 (77) 94 Nasal Cannula 3.0 07/18/17 07:01 115 20 103/78 (86) 97 Nasal Cannula 3.0 07/18/17 06:00 115 21 95/56 (69) 97 Nasal Cannula 3.0 07/18/17 04:00 96 Nasal Cannula 3.0 07/18/17 04:00 36.8 112 22 108/73 (85) 96 Nasal Cannula 3.0 07/18/17 02:00 117 17 112/69 (83) 98 Nasal Cannula 3.0 07/18/17 00:01 36.8 115 16 105/69 (81) 97 Nasal Cannula 3.0 07/17/17 23:59 95 Nasal Cannula 3.0 07/17/17 21:32 112 19 103/71 (82) 95 Nasal Cannula 3.0 07/17/17 21:30 114 14 103/71 (82) 97 Nasal Cannula 3.0 07/17/17 21:10 118 89/61 07/17/17 20:40 116 18 89/61 (70) 97 Nasal Cannula 3.0 07/17/17 20:00 95 Nasal Cannula 3.0 07/17/17 19:41 117 16 100/68 (79) 93 Nasal Cannula 3.0 07/17/17 19:00 94 18 82/51 (61) 96 Nasal Cannula 3.0 Lab Results: Results Past 24 Hours Test 07/17/17 18:03 07/17/17 21:13 07/17/17 22:27 07/17/17 23:59 Range/Units Sodium Level 135 134 136-145 mmol/L Potassium Level 4.9 4.5 3.5-5.1 mmol/L Chloride Level 100 100 98-107 mmol/L Carbon Dioxide Level 26 25 21-32 mmol/L Anion Gap 8.0 9.0 3-11 mmol/L Blood Urea Nitrogen 127 130 7-18 mg/dl Creatinine 4.11 4.09 0.60-1.40 mg/dl Est Creatinine Clear Calc Drug Dose 17.2 17.3 ml/min Estimated GFR () 14.3 14.4 Estimated GFR (Non- 12.4 12.4 BUN/Creatinine Ratio 31.0 31.7 10-20 Random Glucose 158 152 70-99 mg/dl Calcium Level 8.2 8.0 8.5-10.1 mg/dl Total Creatine Kinase 27 39-308 U/L Creatine Kinase MB 1.6 0.5-3.6 ng/ml Creatine Kinase MB Ratio 5.9 0-3.0 Troponin I 0.038 0-0.045 ng/ml Bedside Glucose 143 147 70-99 mg/dl Test 07/18/17 04:36 07/18/17 05:42 07/18/17 12:15 07/18/17 16:44 Range/Units White Blood Count 7.59 4.8-10.8 K/uL Red Blood Count 3.64 4.7-6.1 M/uL Hemoglobin 10.7 14.0-18.0 g/dL Hematocrit 32.0 42-52 % Mean Corpuscular Volume 87.9 80-100 fL Mean Corpuscular Hemoglobin 29.4 25-34 pg Mean Corpuscular Hemoglobin Concent 33.4 32-36 g/dl Platelet Count 110 130-400 K/uL Mean Platelet Volume 10.8 7.4-10.4 fL Neutrophils (%) (Auto) 78.8 % Lymphocytes (%) (Auto) 7.2 % Monocytes (%) (Auto) 11.6 % Eosinophils (%) (Auto) 1.6 % Basophils (%) (Auto) 0.3 % Neutrophils # (Auto) 5.98 1.4-6.5 K/uL Lymphocytes # (Auto) 0.55 1.2-3.4 K/uL Monocytes # (Auto) 0.88 0.11-0.59 K/uL Eosinophils # (Auto) 0.12 0-0.5 K/uL Basophils # (Auto) 0.02 0-0.2 K/uL RDW Standard Deviation 44.2 36.4-46.3 fL RDW Coefficient of Variation 13.7 11.5-14.5 % Immature Granulocyte % (Auto) 0.5 % Immature Granulocyte # (Auto) 0.04 0.00-0.02 K/uL Sodium Level 135 136-145 mmol/L Potassium Level 4.7 3.5-5.1 mmol/L Chloride Level 102 98-107 mmol/L Carbon Dioxide Level 27 21-32 mmol/L Anion Gap 6.0 3-11 mmol/L Blood Urea Nitrogen 136 7-18 mg/dl Creatinine 4.16 0.60-1.40 mg/dl Est Creatinine Clear Calc Drug Dose 17.0 ml/min Estimated GFR () 14.1 Estimated GFR (Non- 12.2 BUN/Creatinine Ratio 32.6 10-20 Random Glucose 135 70-99 mg/dl Estimated Average Glucose 160 mg/dl Hemoglobin A1c 7.2 4.5-5.6 % Calcium Level 8.2 8.5-10.1 mg/dl Phosphorus Level 6.1 2.5-4.9 mg/dl Magnesium Level 2.8 1.8-2.4 mg/dl Lipase 710 73-393 U/L Bedside Glucose 132 157 125 70-99 mg/dl
[2017-07-18] MEDS ORDERED: ONDANSETRON INJ 2 MG/ML 2 ML VIAL ONE (19:44)
[2017-07-18] MEDS: SIMVASTATIN 40 MG TAB PO SCH (20:35)
[2017-07-18] MEDS: GABAPENTIN 300 MG CAP PO SCH (20:35)
[2017-07-18] MEDS: TAMSULOSIN HCL 0.4 MG CAP PO SCH (20:35)
[2017-07-18] MEDS: FINASTERIDE 5 MG TAB PO SCH (20:35)
[2017-07-18] MEDS ORDERED: ALUMINUM/MAGNESIUM SUSP 30 ML UDC ONE (20:37)
[2017-07-18] MEDS ORDERED: ALUMINUM/MAGNESIUM SUSP 30 ML UDC PO PRN (20:45)
[2017-07-18] MEDS ORDERED: CEFTRIAXONE SOD INJ 1000 MG in DEXTROSE 5% 50ML IV SCH (21:00)
--- NOTE | 2017-07-18 21:56 | Critical Care Progress Note ---
Critical Care Progress Note Date of Service Jul 18, 2017. ICU Day ICU Day Number: [address] Harris Subjective Still drowsy and tired. Not nauseous Objective VITAL SIGNS - Vital signs and nursing notes were reviewed. GENERAL - 87-year-old male appearing his stated age who is in no acute distress. Communicates well with provider and answers questions appropriately. SKIN - Without rashes. HEAD - NC/AT. MOUTH/OROPHARYNX - Without perioral cyanosis. Buccal mucosa pink and dry. Tongue midline with equal elevation of palate bilaterally. Edentulous. LUNGS -clear to auscultation bilaterally CARDIAC - RRR. No murmur, rubs, or gallops appreciated. ABDOMEN -soft nontender nondistended. PSYCH - A&Ox3 and cooperates fully with examiner. 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 Cardiac - Atrial fibrillation * Beta kelly when necessary, holding intermittently due to relative hypotension Hypotension * May require medical drain for dialysis Respiratory - * COPD w/ oxygen dependence: * Currently on 2L NC. * Continue home breathing treatments. GI - Elevated lipase * Continues to improve * Will add diet after dialysis today RENAL/LYTES - * Acute Renal Failure on Chronic Kidney Disease: * Tolerated dialysis today * Hyperkalemia: * Repeat BMP - * Cystitis on CT w/ concerns of UTI per Urinalysis: * Pinpoint growth on urine culture, reintubating * History of BPH: * Continue Finasteride/holding Flomax at this time. * Wallace Catheter to [place]. * Strict I&Os ENDO - * h/o DM: * ISS per protocol HEME - Thrombocytopenia * Patient has a history of a PF 4 antibody positive, this was followed up with a serotonin release assay which was negative * Will proceed with heparin 5000 units every 8 hours for DVT prophylaxis * Hit score 2, low probability for heparin-induced cytopenia will continue with current treatment ID - * Cystitis/UTI: Polymicrobial * Initially received Ertapenem per admitting team. * Would by definition be complicated urinary tract infection * Patient has had Klebsiella, enterococcus, Morganella and Corynebacterium grown from his urine specimens * All specimens had fluoroquinolone susceptibility as well as ertapenem susceptibility we'll obtain ID consultation for input into treatment duration and antibiotic selection * Blood Cultures no growth to date LINES/IV ACCESS - * Patient underwent tunneled catheter placement today * Likely be able to discontinue temporary HD catheter tomorrow DVT PROPHYLAXIS - * Heparin sq * SCDs I have personally spent 40 minutes of critical care time in the direct management of this patient. This is a life/limb threatening event. This includes time spent evaluating patient, direct bedside care, chart review, placing orders, interpretation of diagnostic studies, discussion with consultants, patient, and family members, as well as other required patient management activities. This time is exclusive of all separately billable procedures, and teaching time and separate from and in addition to any other critical care service time. Consults & Procedures Consultants: Nephrology Vascular surgery Critical care medicine Procedures: Right femoral temporary hemodialysis catheter: 07/17/2017 Over wire of right temporary hemodialysis catheter: 07/17/2017 Data Medications: Current Inpatient Medications Medications (Trade) Dose Ordered Sig/Ronak Route Start Time Stop Time Status Last Admin Dose Admin Hydromorphone HCl (Dilaudid Tab) 0.5 mg Q4H PRN PO 07/16/17 21:45 07/30/17 21:44 Aspirin (Ecotrin Tab) 81 mg QAM PO 07/17/17 09:00 08/16/17 08:59 07/18/17 14:05 81 MG Clopidogrel Bisulfate (plAVix TAB) 75 mg QAM PO 07/17/17 09:00 08/16/17 08:59 07/18/17 14:05 75 MG Finasteride (Proscar Tab) 5 mg HS PO 07/17/17 21:00 08/16/17 20:59 07/18/17 20:35 5 MG Salmeterol Xinafoate/ Fluticasone (Advair Diskus 250/50 Inh) 1 puff BID INH 07/17/17 09:00 08/16/17 08:59 07/18/17 20:35 1 PUFF Gabapentin (Neurontin Cap) 300 mg HS PO 07/17/17 21:00 08/16/17 20:59 07/18/17 20:35 300 MG Isosorbide Dinitrate (Isordil Tab) 5 mg TID@0700,1200,1700 PO 07/17/17 07:00 08/16/17 06:59 07/17/17 07:32 5 MG Nitroglycerin (Nitrostat Tab) 0.4 mg UD PRN UT 07/16/17 21:45 08/15/17 21:44 Simvastatin (Zocor Tab) 40 mg QPM PO 07/17/17 21:00 08/16/17 20:59 07/18/17 20:35 40 MG Tamsulosin HCl (Flomax Cap) 0.4 mg HS PO 07/17/17 21:00 08/16/17 20:59 07/18/17 20:35 0.4 MG Albuterol (Ventolin Hfa Inhaler) 2 puffs Q4H PRN INH 07/16/17 21:45 08/15/17 21:44 Metoprolol Succinate (Toprol Xl Tab) 100 mg DAILY PO 07/17/17 09:00 08/16/17 08:59 07/17/17 07:32 100 MG Cefazolin Sodium 2000 mg/Syringe 10 ml @ 100 mls/hr PREOP IV 07/18/17 09:00 07/18/17 23:59 07/18/17 09:57 100 MLS/HR Miscellaneous Information (Consult Glycemic Management Pharmacy) 1 ea UD PRN N/A 07/17/17 10:40 08/16/17 10:39 Heparin Sodium (Porcine) (Heparin Sq 5000 Unit/0.5ml) 5,000 unit Q8 SQ 07/17/17 14:00 08/16/17 13:59 07/18/17 20:46 5,000 UNIT Insulin Glargine (Lantus Solostar Pen) SEE PROTOCOL T... BID SC 07/17/17 21:00 08/16/17 20:59 07/18/17 20:47 10 UNITS Digoxin (Lanoxin Tab) 0.0625 mg Q2D@1600 PO 07/20/17 16:00 08/19/17 15:59 Ceftriaxone Sodium 1000 mg/ Dextrose 60 ml @ 120 mls/hr DAILY@2100 IV 07/18/17 21:00 07/26/17 20:59 07/18/17 20:39 120 MLS/HR Insulin Aspart (novoLOG ASPART) SLIDING SCALE ACHS SC 07/18/17 16:45 08/17/17 16:44 Al Hydroxide/Mg Hydroxide (Maalox Susp) 15 ml Q6H PRN PO 07/18/17 20:45 08/17/17 20:44 I & O: 24-Hour Column 07/19/17 08:00 Intake Total 450 ml Output Total 450 ml Balance 0 ml Vital Signs: Date Time Temp Pulse Resp B/P (MAP) Pulse Ox O2 Delivery O2 Flow Rate FiO2 07/18/17 18:01 108 18 99/51 (67) 94 Nasal Cannula 2.0 07/18/17 17:31 113 10 86/57 (67) 95 Nasal Cannula 2.0 07/18/17 17:20 94 15 80/60 (67) 95 Nasal Cannula 2.0 07/18/17 17:18 112 20 85/66 (72) 95 Nasal Cannula 2.0 07/18/17 16:15 36.4 98 117/65 (82) 07/18/17 16:02 36.9 117 12 113/66 (82) 91 Nasal Cannula 2.0 07/18/17 16:00 95 91/42 07/18/17 16:00 Nasal Cannula 2.0 07/18/17 15:45 89 87/46 07/18/17 15:30 60 90/48 07/18/17 15:18 114 88/67 07/18/17 15:00 103 91/54 07/18/17 14:45 98 98/62 07/18/17 14:30 82 103/71 07/18/17 14:15 90 100/62 07/18/17 14:01 112 15 104/80 (88) 95 Nasal Cannula 2.0 07/18/17 14:00 114 104/60 07/18/17 13:45 36.5 117 96/49 (65) 07/18/17 13:31 110 16 96/56 (69) 96 Nasal Cannula 4.0 07/18/17 13:01 104 19 84/51 (62) 95 Nasal Cannula 4.0 07/18/17 12:43 102 16 99/58 (72) 95 Nasal Cannula 4.0 07/18/17 12:41 109 18 75/50 (58) 94 Nasal Cannula 4.0 07/18/17 12:31 92 18 70/47 (55) 94 Nasal Cannula 4.0 07/18/17 12:01 101 16 95/54 (68) 95 Nasal Cannula 4.0 07/18/17 12:00 Nasal Cannula 4.0 07/18/17 11:46 108 19 96/63 (74) 92 Nasal Cannula 4.0 07/18/17 11:31 111 20 106/68 (81) 93 Nasal Cannula 2.0 07/18/17 11:16 109 26 120/63 (82) 89 Nasal Cannula 2.0 07/18/17 11:05 36.6 114 21 98/71 (80) 100 Nasal Cannula 2.0 07/18/17 08:33 114 96/60 07/18/17 08:32 115 19 96/60 (72) 97 Nasal Cannula 3.0 07/18/17 08:32 115 07/18/17 08:01 36.6 114 12 88/58 (68) 97 Nasal Cannula 3.0 07/18/17 08:00 Nasal Cannula 07/18/17 08:00 Nasal Cannula 3.0 07/18/17 07:31 114 14 107/62 (77) 94 Nasal Cannula 3.0 07/18/17 07:01 115 20 103/78 (86) 97 Nasal Cannula 3.0 07/18/17 06:00 115 21 95/56 (69) 97 Nasal Cannula 3.0 07/18/17 04:00 96 Nasal Cannula 3.0 07/18/17 04:00 36.8 112 22 108/73 (85) 96 Nasal Cannula 3.0 07/18/17 02:00 117 17 112/69 (83) 98 Nasal Cannula 3.0 07/18/17 00:01 36.8 115 16 105/69 (81) 97 Nasal Cannula 3.0 07/17/17 23:59 95 Nasal Cannula 3.0 07/17/17 21:32 112 19 103/71 (82) 95 Nasal Cannula 3.0 07/17/17 21:30 114 14 103/71 (82) 97 Nasal Cannula 3.0 Laboratory Results: Last 24 Hours Test 07/17/17 22:27 07/17/17 23:59 07/18/17 04:36 07/18/17 05:42 Sodium Level 134 mmol/L 135 mmol/L Potassium Level 4.5 mmol/L 4.7 mmol/L Chloride Level 100 mmol/L 102 mmol/L Carbon Dioxide Level 25 mmol/L 27 mmol/L Anion Gap 9.0 mmol/L 6.0 mmol/L Blood Urea Nitrogen 130 mg/dl 136 mg/dl Creatinine 4.09 mg/dl 4.16 mg/dl Est Creatinine Clear Calc Drug Dose 17.3 ml/min 17.0 ml/min Estimated GFR () 14.4 14.1 Estimated GFR (Non- 12.4 12.2 BUN/Creatinine Ratio 31.7 32.6 Random Glucose 152 mg/dl 135 mg/dl Calcium Level 8.0 mg/dl 8.2 mg/dl Bedside Glucose 147 mg/dl 132 mg/dl White Blood Count 7.59 K/uL Red Blood Count 3.64 M/uL Hemoglobin 10.7 g/dL Hematocrit 32.0 % Mean Corpuscular Volume 87.9 fL Mean Corpuscular Hemoglobin 29.4 pg Mean Corpuscular Hemoglobin Concent 33.4 g/dl Platelet Count 110 K/uL Mean Platelet Volume 10.8 fL Neutrophils (%) (Auto) 78.8 % Lymphocytes (%) (Auto) 7.2 % Monocytes (%) (Auto) 11.6 % Eosinophils (%) (Auto) 1.6 % Basophils (%) (Auto) 0.3 % Neutrophils # (Auto) 5.98 K/uL Lymphocytes # (Auto) 0.55 K/uL Monocytes # (Auto) 0.88 K/uL Eosinophils # (Auto) 0.12 K/uL Basophils # (Auto) 0.02 K/uL RDW Standard Deviation 44.2 fL RDW Coefficient of Variation 13.7 % Immature Granulocyte % (Auto) 0.5 % Immature Granulocyte # (Auto) 0.04 K/uL Estimated Average Glucose 160 mg/dl Hemoglobin A1c 7.2 % Phosphorus Level 6.1 mg/dl Magnesium Level 2.8 mg/dl Lipase 710 U/L Test 07/18/17 12:15 07/18/17 16:44 07/18/17 20:44 Bedside Glucose 157 mg/dl 125 mg/dl 153 mg/dl Problem Qualifiers (1) ARF (acute renal failure): Acute renal failure type: unspecified Qualified Codes: N17.9 - Acute kidney failure, unspecified
[2017-07-19] VITALS (21 sets, daily range): BP systolic 64–116; BP diastolic 48–76; PULSE 108–123; TEMP 36.3–37.1; O2SAT 93–98
[2017-07-19 05:34] LABS: HEMATOCRIT 31.7 % (42-52); HEMOGLOBIN 10.4 g/dL (14.0-18.0); MEAN CELL VOLUME 90.8 fL (80-100); MEAN CORPUSCULAR HEMOGLOBIN 29.8 pg (25-34); MEAN CORPUSCULAR HGB CONC 32.8 g/dl (32-36); RED CELL DISTRIBUTION WIDTH CV 13.8 % (11.5-14.5); RED CELL DISTRIBUTION WIDTH SD 45.5 fL (36.4-46.3); WHITE BLOOD COUNT 8.18 K/uL (4.8-10.8)
[2017-07-19] MEDS: HEPARIN SOD 5000 UNIT/0.5 ML CARP SQ SCH (05:38)
[2017-07-19 06:02] LABS: CALCIUM 8.1 mg/dl (8.5-10.1); CREATININE 3.66 mg/dl (0.60-1.40); POTASSIUM 4.4 mmol/L (3.5-5.1)
[2017-07-19 06:03] LABS: PHOSPHORUS 6.1 mg/dl (2.5-4.9)
[2017-07-19 06:18] LABS: PLATELET COUNT 88 K/uL (130-400)
[2017-07-19 06:20] LABS: BASO % 0.1 %; BASO ABS # 0.01 K/uL (0-0.2); EOS % 1.3 %; EOS ABS # 0.11 K/uL (0-0.5); IG# 0.05 K/uL (0.00-0.02); LYMPH % 8.9 %; LYMPH ABS # 0.73 K/uL (1.2-3.4); MONO % 7.3 %; NEUT % 81.8 %; NEUT ABS # 6.68 K/uL (1.4-6.5)
[2017-07-19] MEDS ORDERED: HEPARIN SOD (PORCINE) 1000 UNIT/ML 10 ML VIAL IV SCH (06:45)
[2017-07-19] MEDS: INSULIN ASPART 100 UNITS/ML 3 ML PEN SC SCH ×4 (07:28→21:50)
[2017-07-19] MEDS: ISOSORBIDE DINITRATE 5 MG TAB PO SCH ×3 (07:30→17:47)
[2017-07-19] MEDS: FLUTICASONE/SALMETEROL 250/50 (ADVAIR) 14 PUFF/1 INHALER INH SCH ×2 (07:30→21:52)
[2017-07-19] MEDS: CLOPIDOGREL BISULFATE 75 MG TAB PO SCH (07:30)
[2017-07-19] MEDS: ASPIRIN 81 MG ECTAB PO SCH (07:30)
[2017-07-19] MEDS: METOPROLOL SUCC 50MG EXT REL TAB PO SCH ×2 (07:31→08:27)
[2017-07-19] MEDS: POLYETHYLENE (MIRALAX) 17 GM PACK PO SCH (07:53)
[2017-07-19] MEDS: CALCIUM ACETATE 667MG GELCAP PO SCH ×3 (07:53→16:32)
[2017-07-19] MEDS: DOCUSATE SODIUM 100 MG CAP PO SCH ×2 (07:53→21:53)
--- NOTE | 2017-07-19 08:09 | Critical Care Progress Note ---
Critical Care Progress Note Date of Service Jul 19, 2017. ICU Day ICU Day Number: [address] Harris Subjective Complaint of ABD pain without nausea. Objective VITAL SIGNS - Vital signs and nursing notes were reviewed. GENERAL - 87-year-old male appearing his stated age who is in no acute distress. Communicates well with provider and answers questions appropriately. SKIN - Without rashes. HEAD - NC/AT. LUNGS -clear to auscultation bilaterally ABDOMEN -soft nondistended, generalized discomfort PSYCH - A&Ox3 Current SOFA Score SOFA Score Response (Comments) Value Platelets (x10) < 100 2 Bilirubin (mg/dL) < 1.2 0 Chelsey Coma Score 15 0 Level of Hypotension No Hypotension 0 Creatinine (mg/dL) 3.5 - 4.9 3 Total 5 Assessment & Plan (1) ARF (acute renal failure) (2) Dehydration (3) Hyperkalemia (4) Hypermagnesemia (5) Pancreatitis (6) Renal failure (7) HTN (hypertension) (8) COPD (chronic obstructive pulmonary disease) (9) CAD (coronary artery disease) (10) Chronic hypoxemic respiratory failure (11) CKD (chronic kidney disease), stage IV (12) Atrial fibrillation (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 Cardiac - Atrial fibrillation * Starting half of patient's prior beta kelly dose 50 mg metoprolol tartrate twice a day Hypotension * midodrine drain 5 mg 3 times a day for dialysis Respiratory - * COPD w/ oxygen dependence: * Currently on 2L NC. * Continue home breathing treatments. GI - Elevated lipase * Unclear of significance at this time * No abdominal pain tolerating diet RENAL/LYTES - * Acute Renal Failure on Chronic Kidney Disease: * Tolerated dialysis today - * Cystitis on CT w/ concerns of UTI per Urinalysis: * Reviewed infectious disease notes converted from Rocephin to ertapenem * History of BPH: * Continue Finasteride/holding Flomax at this time. * Wallace Catheter to [place]. * Strict I&Os ENDO - * h/o DM: * ISS per protocol HEME - Thrombocytopenia * Stopping heparin at this time resending heparin antibody which was positive as well as serotonin release assay * Ordered SCDs and JOSSELYN rivera for DVT prevention * Discussed thrombocytopenia with Dr. Fraser * Anticoagulation is secondary to atrial fibrillation; however patient is at fall risk. Risk of systemic anticoagulation greater than thrombotic risk at this present time * Chemical DVT prophylaxis contraindicated at this present time ID - * Cystitis/UTI: Polymicrobial * Per ID * Blood Cultures no growth to date LINES/IV ACCESS - * Patient underwent tunneled catheter placement today DVT PROPHYLAXIS - * Chemical prophylaxis contraindicated of present time * SCDs & JOSSELYN rivera I discussed this case with the hospitalist service stable for downgraded out of ICU Consults & Procedures Consultants: Nephrology Vascular surgery Critical care medicine Procedures: Right femoral temporary hemodialysis catheter: 07/17/2017 Over wire of right temporary hemodialysis catheter: 07/17/2017 Data Medications: Current Inpatient Medications Medications (Trade) Dose Ordered Sig/Ronak Route Start Time Stop Time Status Last Admin Dose Admin Hydromorphone HCl (Dilaudid Tab) 0.5 mg Q4H PRN PO 07/16/17 21:45 07/30/17 21:44 07/19/17 04:05 0.5 MG Aspirin (Ecotrin Tab) 81 mg QAM PO 07/17/17 09:00 08/16/17 08:59 07/19/17 07:30 81 MG Clopidogrel Bisulfate (plAVix TAB) 75 mg QAM PO 07/17/17 09:00 08/16/17 08:59 07/19/17 07:30 75 MG Finasteride (Proscar Tab) 5 mg HS PO 07/17/17 21:00 08/16/17 20:59 07/18/17 20:35 5 MG Salmeterol Xinafoate/ Fluticasone (Advair Diskus 250/50 Inh) 1 puff BID INH 07/17/17 09:00 08/16/17 08:59 07/19/17 07:30 1 PUFF Gabapentin (Neurontin Cap) 300 mg HS PO 07/17/17 21:00 08/16/17 20:59 07/18/17 20:35 300 MG Isosorbide Dinitrate (Isordil Tab) 5 mg TID@0700,1200,1700 PO 07/17/17 07:00 08/16/17 06:59 07/19/17 07:30 5 MG Nitroglycerin (Nitrostat Tab) 0.4 mg UD PRN UT 07/16/17 21:45 08/15/17 21:44 Simvastatin (Zocor Tab) 40 mg QPM PO 07/17/17 21:00 08/16/17 20:59 07/18/17 20:35 40 MG Tamsulosin HCl (Flomax Cap) 0.4 mg HS PO 07/17/17 21:00 08/16/17 20:59 07/18/17 20:35 0.4 MG Albuterol (Ventolin Hfa Inhaler) 2 puffs Q4H PRN INH 07/16/17 21:45 08/15/17 21:44 Metoprolol Succinate (Toprol Xl Tab) 100 mg DAILY PO 07/17/17 09:00 08/16/17 08:59 07/17/17 07:32 100 MG Miscellaneous Information (Consult Glycemic Management Pharmacy) 1 ea UD PRN N/A 07/17/17 10:40 08/16/17 10:39 Heparin Sodium (Porcine) (Heparin Sq 5000 Unit/0.5ml) 5,000 unit Q8 SQ 07/17/17 14:00 08/16/17 13:59 07/19/17 05:38 5,000 UNIT Digoxin (Lanoxin Tab) 0.0625 mg Q2D@1600 PO 07/20/17 16:00 08/19/17 15:59 Ceftriaxone Sodium 1000 mg/ Dextrose 60 ml @ 120 mls/hr DAILY@2100 IV 07/18/17 21:00 07/26/17 20:59 07/18/17 20:39 120 MLS/HR Insulin Aspart (novoLOG ASPART) SLIDING SCALE ACHS SC 07/18/17 16:45 08/17/17 16:44 Al Hydroxide/Mg Hydroxide (Maalox Susp) 15 ml Q6H PRN PO 07/18/17 20:45 08/17/17 20:44 Docusate Sodium (coLACE CAP) 100 mg BID PO 07/19/17 09:00 08/18/17 08:59 Polyethylene (Miralax Powder Packet) 17 gm DAILY PO 07/19/17 09:00 08/18/17 08:59 Calcium Acetate (Phoslo Cap) 667 mg TIDM PO 07/19/17 07:15 08/18/17 07:14 Heparin Sodium (Porcine) (Heparin Iv Bolus) 2,000 unit 0645 IV 07/19/17 06:45 07/19/17 12:00 Insulin Glargine (Lantus Solostar Pen) SEE PROTOCOL T... QPM SC 07/19/17 21:00 08/18/17 20:59 Vital Signs: Date Time Temp Pulse Resp B/P (MAP) Pulse Ox O2 Delivery O2 Flow Rate FiO2 07/19/17 06:00 115 12 98/55 (69) 94 Nasal Cannula 3.0 07/19/17 04:00 95 Nasal Cannula 3.0 07/19/17 04:00 36.8 116 20 104/76 (85) 95 Nasal Cannula 3.0 07/19/17 02:00 113 18 96/56 (69) 95 Nasal Cannula 3.0 07/19/17 00:01 36.6 111 18 94/57 (69) 95 Nasal Cannula 3.0 07/18/17 23:59 95 Nasal Cannula 3.0 07/18/17 22:00 116 14 105/58 (74) 99 Nasal Cannula 3.0 07/18/17 20:00 36.5 115 17 85/60 (68) 95 Nasal Cannula 3.0 07/18/17 20:00 95 Nasal Cannula 3.0 07/18/17 18:01 108 18 99/51 (67) 94 Nasal Cannula 2.0 07/18/17 17:31 113 10 86/57 (67) 95 Nasal Cannula 2.0 07/18/17 17:20 94 15 80/60 (67) 95 Nasal Cannula 2.0 07/18/17 17:18 112 20 85/66 (72) 95 Nasal Cannula 2.0 07/18/17 16:15 36.4 98 117/65 (82) 07/18/17 16:02 36.9 117 12 113/66 (82) 91 Nasal Cannula 2.0 07/18/17 16:00 95 91/42 07/18/17 16:00 Nasal Cannula 2.0 07/18/17 15:45 89 87/46 07/18/17 15:30 60 90/48 07/18/17 15:18 114 88/67 07/18/17 15:00 103 91/54 07/18/17 14:45 98 98/62 07/18/17 14:30 82 103/71 07/18/17 14:15 90 100/62 07/18/17 14:01 112 15 104/80 (88) 95 Nasal Cannula 2.0 07/18/17 14:00 114 104/60 07/18/17 13:45 36.5 117 96/49 (65) 07/18/17 13:31 110 16 96/56 (69) 96 Nasal Cannula 4.0 07/18/17 13:01 104 19 84/51 (62) 95 Nasal Cannula 4.0 07/18/17 12:43 102 16 99/58 (72) 95 Nasal Cannula 4.0 07/18/17 12:41 109 18 75/50 (58) 94 Nasal Cannula 4.0 07/18/17 12:31 92 18 70/47 (55) 94 Nasal Cannula 4.0 07/18/17 12:01 101 16 95/54 (68) 95 Nasal Cannula 4.0 07/18/17 12:00 Nasal Cannula 4.0 07/18/17 11:46 108 19 96/63 (74) 92 Nasal Cannula 4.0 07/18/17 11:31 111 20 106/68 (81) 93 Nasal Cannula 2.0 07/18/17 11:16 109 26 120/63 (82) 89 Nasal Cannula 2.0 07/18/17 11:05 36.6 114 21 98/71 (80) 100 Nasal Cannula 2.0 07/18/17 08:33 114 96/60 07/18/17 08:32 115 19 96/60 (72) 97 Nasal Cannula 3.0 07/18/17 08:32 115 07/18/17 08:01 36.6 114 12 88/58 (68) 97 Nasal Cannula 3.0 07/18/17 08:00 Nasal Cannula 07/18/17 08:00 Nasal Cannula 3.0 Laboratory Results: Last 24 Hours Test 07/18/17 12:15 07/18/17 16:44 07/18/17 20:44 07/19/17 05:02 Bedside Glucose 157 mg/dl 125 mg/dl 153 mg/dl White Blood Count 8.18 K/uL Red Blood Count 3.49 M/uL Hemoglobin 10.4 g/dL Hematocrit 31.7 % Mean Corpuscular Volume 90.8 fL Mean Corpuscular Hemoglobin 29.8 pg Mean Corpuscular Hemoglobin Concent 32.8 g/dl Platelet Count 88 K/uL Mean Platelet Volume 11.0 fL Neutrophils (%) (Auto) 81.8 % Lymphocytes (%) (Auto) 8.9 % Monocytes (%) (Auto) 7.3 % Eosinophils (%) (Auto) 1.3 % Basophils (%) (Auto) 0.1 % Neutrophils # (Auto) 6.68 K/uL Lymphocytes # (Auto) 0.73 K/uL Monocytes # (Auto) 0.60 K/uL Eosinophils # (Auto) 0.11 K/uL Basophils # (Auto) 0.01 K/uL RDW Standard Deviation 45.5 fL RDW Coefficient of Variation 13.8 % Immature Granulocyte % (Auto) 0.6 % Immature Granulocyte # (Auto) 0.05 K/uL Platelet Estimate DECREASED Sodium Level 133 mmol/L Potassium Level 4.4 mmol/L Chloride Level 99 mmol/L Carbon Dioxide Level 29 mmol/L Anion Gap 5.0 mmol/L Blood Urea Nitrogen 92 mg/dl Creatinine 3.66 mg/dl Est Creatinine Clear Calc Drug Dose 19.3 ml/min Estimated GFR () 16.5 Estimated GFR (Non- 14.2 BUN/Creatinine Ratio 25.3 Random Glucose 130 mg/dl Calcium Level 8.1 mg/dl Phosphorus Level 6.1 mg/dl Magnesium Level 2.7 mg/dl Lipase 778 U/L Test 07/19/17 05:06 Bedside Glucose 130 mg/dl Problem Qualifiers (1) ARF (acute renal failure): Acute renal failure type: unspecified Qualified Codes: N17.9 - Acute kidney failure, unspecified
--- NOTE | 2017-07-19 08:15 | Nephrology Progress Note ---
Nephrology Progress Note Date of Service: Jul 19, 2017. Subjective 87 yo male with ckd stage 5 who presented with hyperkalemia and hypermagnesemia and uremic symptoms. had tunneled line placed. platelet count dropping now. checking for hit again. had short dialysis treatments. pt continues to be weak and decreased appetite. Objective Date Time Temp Pulse Resp B/P (MAP) Pulse Ox O2 Delivery O2 Flow Rate FiO2 07/19/17 08:00 36.7 117 18 98/64 (75) 93 Nasal Cannula 3.0 07/19/17 06:00 115 12 98/55 (69) 94 Nasal Cannula 3.0 07/19/17 04:00 95 Nasal Cannula 3.0 07/19/17 04:00 36.8 116 20 104/76 (85) 95 Nasal Cannula 3.0 07/19/17 02:00 113 18 96/56 (69) 95 Nasal Cannula 3.0 07/19/17 00:01 36.6 111 18 94/57 (69) 95 Nasal Cannula 3.0 07/18/17 23:59 95 Nasal Cannula 3.0 07/18/17 22:00 116 14 105/58 (74) 99 Nasal Cannula 3.0 07/18/17 20:00 36.5 115 17 85/60 (68) 95 Nasal Cannula 3.0 07/18/17 20:00 95 Nasal Cannula 3.0 07/18/17 18:01 108 18 99/51 (67) 94 Nasal Cannula 2.0 07/18/17 17:31 113 10 86/57 (67) 95 Nasal Cannula 2.0 07/18/17 17:20 94 15 80/60 (67) 95 Nasal Cannula 2.0 07/18/17 17:18 112 20 85/66 (72) 95 Nasal Cannula 2.0 07/18/17 16:15 36.4 98 117/65 (82) 07/18/17 16:02 36.9 117 12 113/66 (82) 91 Nasal Cannula 2.0 07/18/17 16:00 95 91/42 07/18/17 16:00 Nasal Cannula 2.0 07/18/17 15:45 89 87/46 07/18/17 15:30 60 90/48 07/18/17 15:18 114 88/67 07/18/17 15:00 103 91/54 07/18/17 14:45 98 98/62 07/18/17 14:30 82 103/71 07/18/17 14:15 90 100/62 07/18/17 14:01 112 15 104/80 (88) 95 Nasal Cannula 2.0 07/18/17 14:00 114 104/60 07/18/17 13:45 36.5 117 96/49 (65) 07/18/17 13:31 110 16 96/56 (69) 96 Nasal Cannula 4.0 07/18/17 13:01 104 19 84/51 (62) 95 Nasal Cannula 4.0 07/18/17 12:43 102 16 99/58 (72) 95 Nasal Cannula 4.0 07/18/17 12:41 109 18 75/50 (58) 94 Nasal Cannula 4.0 07/18/17 12:31 92 18 70/47 (55) 94 Nasal Cannula 4.0 07/18/17 12:01 101 16 95/54 (68) 95 Nasal Cannula 4.0 07/18/17 12:00 Nasal Cannula 4.0 07/18/17 11:46 108 19 96/63 (74) 92 Nasal Cannula 4.0 07/18/17 11:31 111 20 106/68 (81) 93 Nasal Cannula 2.0 07/18/17 11:16 109 26 120/63 (82) 89 Nasal Cannula 2.0 07/18/17 11:05 36.6 114 21 98/71 (80) 100 Nasal Cannula 2.0 07/18/17 08:33 114 96/60 07/18/17 08:32 115 19 96/60 (72) 97 Nasal Cannula 3.0 07/18/17 08:32 115 Physical Exam: General-aaox3 Eyes-no scleral icterus ENT-mmm Neck-supple Lungs-cta anteriorly Heart-tachycardia Abdomen-bs+ s/nt/nd Extremities-no c/c/e Neuro-nonfocal Current Inpatient Medications Medications (Trade) Dose Ordered Sig/Ronak Route Start Time Stop Time Status Last Admin Dose Admin Hydromorphone HCl (Dilaudid Tab) 0.5 mg Q4H PRN PO 07/16/17 21:45 07/30/17 21:44 07/19/17 04:05 0.5 MG Aspirin (Ecotrin Tab) 81 mg QAM PO 07/17/17 09:00 08/16/17 08:59 07/19/17 07:30 81 MG Clopidogrel Bisulfate (plAVix TAB) 75 mg QAM PO 07/17/17 09:00 08/16/17 08:59 07/19/17 07:30 75 MG Finasteride (Proscar Tab) 5 mg HS PO 07/17/17 21:00 08/16/17 20:59 07/18/17 20:35 5 MG Salmeterol Xinafoate/ Fluticasone (Advair Diskus 250/50 Inh) 1 puff BID INH 07/17/17 09:00 08/16/17 08:59 07/19/17 07:30 1 PUFF Gabapentin (Neurontin Cap) 300 mg HS PO 07/17/17 21:00 08/16/17 20:59 07/18/17 20:35 300 MG Isosorbide Dinitrate (Isordil Tab) 5 mg TID@0700,1200,1700 PO 07/17/17 07:00 08/16/17 06:59 07/19/17 07:30 5 MG Nitroglycerin (Nitrostat Tab) 0.4 mg UD PRN UT 07/16/17 21:45 08/15/17 21:44 Simvastatin (Zocor Tab) 40 mg QPM PO 07/17/17 21:00 08/16/17 20:59 07/18/17 20:35 40 MG Tamsulosin HCl (Flomax Cap) 0.4 mg HS PO 07/17/17 21:00 08/16/17 20:59 07/18/17 20:35 0.4 MG Albuterol (Ventolin Hfa Inhaler) 2 puffs Q4H PRN INH 07/16/17 21:45 08/15/17 21:44 Metoprolol Succinate (Toprol Xl Tab) 100 mg DAILY PO 07/17/17 09:00 08/16/17 08:59 07/17/17 07:32 100 MG Miscellaneous Information (Consult Glycemic Management Pharmacy) 1 ea UD PRN N/A 07/17/17 10:40 08/16/17 10:39 Heparin Sodium (Porcine) (Heparin Sq 5000 Unit/0.5ml) 5,000 unit Q8 SQ 07/17/17 14:00 08/16/17 13:59 07/19/17 05:38 5,000 UNIT Digoxin (Lanoxin Tab) 0.0625 mg Q2D@1600 PO 07/20/17 16:00 08/19/17 15:59 Ceftriaxone Sodium 1000 mg/ Dextrose 60 ml @ 120 mls/hr DAILY@2100 IV 07/18/17 21:00 07/26/17 20:59 07/18/17 20:39 120 MLS/HR Insulin Aspart (novoLOG ASPART) SLIDING SCALE ACHS SC 07/18/17 16:45 08/17/17 16:44 Al Hydroxide/Mg Hydroxide (Maalox Susp) 15 ml Q6H PRN PO 07/18/17 20:45 08/17/17 20:44 Docusate Sodium (coLACE CAP) 100 mg BID PO 07/19/17 09:00 08/18/17 08:59 07/19/17 07:53 100 MG Polyethylene (Miralax Powder Packet) 17 gm DAILY PO 07/19/17 09:00 08/18/17 08:59 07/19/17 07:53 17 GM Calcium Acetate (Phoslo Cap) 667 mg TIDM PO 07/19/17 07:15 08/18/17 07:14 07/19/17 07:53 667 MG Heparin Sodium (Porcine) (Heparin Iv Bolus) 2,000 unit 0645 IV 07/19/17 06:45 07/19/17 12:00 Insulin Glargine (Lantus Solostar Pen) SEE PROTOCOL T... QPM SC 07/19/17 21:00 08/18/17 20:59 Midodrine (Proamatine Tab) 5 mg TID@08,,17 PO 07/19/17 12:00 08/18/17 11:59 UNV Last 24 Hours Test 07/18/17 12:15 07/18/17 16:44 07/18/17 20:44 07/19/17 05:02 Bedside Glucose 157 mg/dl 125 mg/dl 153 mg/dl White Blood Count 8.18 K/uL Red Blood Count 3.49 M/uL Hemoglobin 10.4 g/dL Hematocrit 31.7 % Mean Corpuscular Volume 90.8 fL Mean Corpuscular Hemoglobin 29.8 pg Mean Corpuscular Hemoglobin Concent 32.8 g/dl Platelet Count 88 K/uL Mean Platelet Volume 11.0 fL Neutrophils (%) (Auto) 81.8 % Lymphocytes (%) (Auto) 8.9 % Monocytes (%) (Auto) 7.3 % Eosinophils (%) (Auto) 1.3 % Basophils (%) (Auto) 0.1 % Neutrophils # (Auto) 6.68 K/uL Lymphocytes # (Auto) 0.73 K/uL Monocytes # (Auto) 0.60 K/uL Eosinophils # (Auto) 0.11 K/uL Basophils # (Auto) 0.01 K/uL RDW Standard Deviation 45.5 fL RDW Coefficient of Variation 13.8 % Immature Granulocyte % (Auto) 0.6 % Immature Granulocyte # (Auto) 0.05 K/uL Platelet Estimate DECREASED Sodium Level 133 mmol/L Potassium Level 4.4 mmol/L Chloride Level 99 mmol/L Carbon Dioxide Level 29 mmol/L Anion Gap 5.0 mmol/L Blood Urea Nitrogen 92 mg/dl Creatinine 3.66 mg/dl Est Creatinine Clear Calc Drug Dose 19.3 ml/min Estimated GFR () 16.5 Estimated GFR (Non- 14.2 BUN/Creatinine Ratio 25.3 Random Glucose 130 mg/dl Calcium Level 8.1 mg/dl Phosphorus Level 6.1 mg/dl Magnesium Level 2.7 mg/dl Lipase 778 U/L Test 07/19/17 05:06 07/19/17 08:02 Bedside Glucose 130 mg/dl Assessment & Plan CKD stage 5-had tunneled line yesterday and so far two short treatments. for dialysis again today as we slowly remove toxins from his body. hopefully, with time, pt will start to feel better. difficulty though since all of his symptoms are not necessarily related to renal failure. hypermag-mag improved from 3.5 to 2.7. should continue to trend down. hyperkalemia-k has improved from 6.9 to 4.4. Hypotension-started on midodrine to help raise the bp in hopes of being able to use beta blockers to slow down his heart rate. volume status is good. Thrombocytopenia-platelet count trending down-will try to avoid heparin.
[2017-07-19] MEDS ORDERED: METOPROLOL TARTRATE 50 MG TAB PO SCH (09:30)
[2017-07-19] MEDS ORDERED: ERTAPENEM IV 0.5 GM in SODIUM CHLOR 0.9% AD-VAN 50ML 50 ML IV SCH (10:15)
--- NOTE | 2017-07-19 10:18 | Medical Consult ---
Consultation Date of Consultation: Jul 19, 2017. Attending Physician: Siddhartha Mendoza MD Reason for Consultation: Polymicrobial UTI in male History of Present Illness 87-year-old male with complicated past medical history including diabetes mellitus, stage 4 chronic kidney disease, COPD, atrial fibrillation, hypertension, coronary artery disease, who was recently hospitalized for exacerbation of COPD and was found to have need for dialysis which patient refused. Now readmitted with several days of progressively worsening weakness and fatigue with finding of worsening renal failure with hyperkalemia. Has had placement of tunnel catheter and now to undergo dialysis. Has been found to have evidence of urinary tract infection, has indwelling Wallace, but culture shows polymicrobial growth. Patient currently receiving ceftriaxone. Has been afebrile, hemodynamically stable. Past Medical/Surgical History Medical Problems: (1) ARF (acute renal failure) Status: Acute (2) ARF (acute renal failure) Status: Acute (3) Dehydration Status: Acute (4) Diverticulitis Status: Acute (5) Hyperglycemia Status: Acute (6) Hyperkalemia Status: Acute (7) Hypermagnesemia Status: Acute (8) Lower GI bleed Status: Acute (9) Pancreatitis Status: Acute (10) Renal failure Status: Acute (11) Renal failure Status: Acute (12) Urinary retention Status: Acute (13) UTI (urinary tract infection) Status: Acute Medical Problems: (1) Atrial fibrillation (2) CAD (coronary artery disease) (3) Chronic hypoxemic respiratory failure (4) CKD (chronic kidney disease), stage IV (5) COPD (chronic obstructive pulmonary disease) (6) DM2 (diabetes mellitus, type 2) (7) HLD (hyperlipidemia) (8) HTN (hypertension) (9) Pulmonary nodules (10) Systolic and diastolic CHF, chronic Surgical Problems: (1) H/O hernia repair (2) s/p laser vaporization of prostate 11/01/11 (3) Transurethral prostatectomy Family History Heart disease Social History Smoking Status: Former Smoker Smokeless Tobacco Use: No Alcohol Use: none Drug Use: none Marital Status: Housing Status: lives alone Occupation Status: retired Allergies Coded Allergies: Iodine (Verified Allergy, Mild, HIVES, 07/16/17) Heparin (Verified Allergy, Unknown, ., 07/16/17) Sulfa Antibiotics (Verified Allergy, Unknown, ENTERED SULFA- UNKNOWN, 07/16/17) Current Inpatient Medications Current Inpatient Medications Medications (Trade) Dose Ordered Sig/Ronak Route Start Time Stop Time Status Last Admin Dose Admin Hydromorphone HCl (Dilaudid Tab) 0.5 mg Q4H PRN PO 07/16/17 21:45 07/30/17 21:44 07/19/17 04:05 0.5 MG Aspirin (Ecotrin Tab) 81 mg QAM PO 07/17/17 09:00 08/16/17 08:59 07/19/17 07:30 81 MG Clopidogrel Bisulfate (plAVix TAB) 75 mg QAM PO 07/17/17 09:00 08/16/17 08:59 07/19/17 07:30 75 MG Finasteride (Proscar Tab) 5 mg HS PO 07/17/17 21:00 08/16/17 20:59 07/18/17 20:35 5 MG Salmeterol Xinafoate/ Fluticasone (Advair Diskus 250/50 Inh) 1 puff BID INH 07/17/17 09:00 08/16/17 08:59 07/19/17 07:30 1 PUFF Gabapentin (Neurontin Cap) 300 mg HS PO 07/17/17 21:00 08/16/17 20:59 07/18/17 20:35 300 MG Isosorbide Dinitrate (Isordil Tab) 5 mg TID@0700,1200,1700 PO 07/17/17 07:00 08/16/17 06:59 07/19/17 07:30 5 MG Nitroglycerin (Nitrostat Tab) 0.4 mg UD PRN UT 07/16/17 21:45 08/15/17 21:44 Simvastatin (Zocor Tab) 40 mg QPM PO 07/17/17 21:00 08/16/17 20:59 07/18/17 20:35 40 MG Tamsulosin HCl (Flomax Cap) 0.4 mg HS PO 07/17/17 21:00 08/16/17 20:59 07/18/17 20:35 0.4 MG Albuterol (Ventolin Hfa Inhaler) 2 puffs Q4H PRN INH 07/16/17 21:45 08/15/17 21:44 Metoprolol Succinate (Toprol Xl Tab) 100 mg DAILY PO 07/17/17 09:00 08/16/17 08:59 07/19/17 08:27 100 MG Miscellaneous Information (Consult Glycemic Management Pharmacy) 1 ea UD PRN N/A 07/17/17 10:40 08/16/17 10:39 Digoxin (Lanoxin Tab) 0.0625 mg Q2D@1600 PO 07/20/17 16:00 08/19/17 15:59 Ceftriaxone Sodium 1000 mg/ Dextrose 60 ml @ 120 mls/hr DAILY@2100 IV 07/18/17 21:00 07/26/17 20:59 07/18/17 20:39 120 MLS/HR Insulin Aspart (novoLOG ASPART) SLIDING SCALE ACHS SC 07/18/17 16:45 08/17/17 16:44 Al Hydroxide/Mg Hydroxide (Maalox Susp) 15 ml Q6H PRN PO 07/18/17 20:45 08/17/17 20:44 Docusate Sodium (coLACE CAP) 100 mg BID PO 07/19/17 09:00 08/18/17 08:59 07/19/17 07:53 100 MG Polyethylene (Miralax Powder Packet) 17 gm DAILY PO 07/19/17 09:00 08/18/17 08:59 07/19/17 07:53 17 GM Calcium Acetate (Phoslo Cap) 667 mg TIDM PO 07/19/17 07:15 08/18/17 07:14 07/19/17 07:53 667 MG Insulin Glargine (Lantus Solostar Pen) SEE PROTOCOL T... QPM SC 07/19/17 21:00 08/18/17 20:59 Midodrine (Proamatine Tab) 5 mg TID@08,12,17 PO 07/19/17 12:00 08/18/17 11:59 Review of Systems Constitutional: + weakness, + fatigue, No fever Eyes: No problem reported ENT: No problem reported Respiratory: + shortness of breath Cardiovascular: No problem reported Abdomen: + nausea Musculoskeletal: No problem reported Genitourinary - Male: + problem reported (see HPI) Neurologic: + weakness Psychiatric: + depression symptoms Endocrine: + fatigue Hematologic / Lymphatic: No problem reported Integumentary: No problem reported Allergic / Immunologic: No problem reported Physical Exam Date Time Temp Pulse Resp B/P (MAP) Pulse Ox O2 Delivery O2 Flow Rate FiO2 07/19/17 08:00 36.7 117 18 98/64 (75) 93 Nasal Cannula 3.0 07/19/17 08:00 93 Nasal Cannula 3.0 07/19/17 06:00 115 12 98/55 (69) 94 Nasal Cannula 3.0 07/19/17 04:00 95 Nasal Cannula 3.0 07/19/17 04:00 36.8 116 20 104/76 (85) 95 Nasal Cannula 3.0 07/19/17 02:00 113 18 96/56 (69) 95 Nasal Cannula 3.0 07/19/17 00:01 36.6 111 18 94/57 (69) 95 Nasal Cannula 3.0 07/18/17 23:59 95 Nasal Cannula 3.0 07/18/17 22:00 116 14 105/58 (74) 99 Nasal Cannula 3.0 07/18/17 20:00 36.5 115 17 85/60 (68) 95 Nasal Cannula 3.0 07/18/17 20:00 95 Nasal Cannula 3.0 07/18/17 18:01 108 18 99/51 (67) 94 Nasal Cannula 2.0 07/18/17 17:31 113 10 86/57 (67) 95 Nasal Cannula 2.0 07/18/17 17:20 94 15 80/60 (67) 95 Nasal Cannula 2.0 07/18/17 17:18 112 20 85/66 (72) 95 Nasal Cannula 2.0 07/18/17 16:15 36.4 98 117/65 (82) 07/18/17 16:02 36.9 117 12 113/66 (82) 91 Nasal Cannula 2.0 07/18/17 16:00 95 91/42 07/18/17 16:00 Nasal Cannula 2.0 07/18/17 15:45 89 87/46 07/18/17 15:30 60 90/48 07/18/17 15:18 114 88/67 07/18/17 15:00 103 91/54 07/18/17 14:45 98 98/62 07/18/17 14:30 82 103/71 07/18/17 14:15 90 100/62 07/18/17 14:01 112 15 104/80 (88) 95 Nasal Cannula 2.0 07/18/17 14:00 114 104/60 07/18/17 13:45 36.5 117 96/49 (65) 07/18/17 13:31 110 16 96/56 (69) 96 Nasal Cannula 4.0 07/18/17 13:01 104 19 84/51 (62) 95 Nasal Cannula 4.0 07/18/17 12:43 102 16 99/58 (72) 95 Nasal Cannula 4.0 07/18/17 12:41 109 18 75/50 (58) 94 Nasal Cannula 4.0 07/18/17 12:31 92 18 70/47 (55) 94 Nasal Cannula 4.0 07/18/17 12:01 101 16 95/54 (68) 95 Nasal Cannula 4.0 07/18/17 12:00 Nasal Cannula 4.0 07/18/17 11:46 108 19 96/63 (74) 92 Nasal Cannula 4.0 07/18/17 11:31 111 20 106/68 (81) 93 Nasal Cannula 2.0 07/18/17 11:16 109 26 120/63 (82) 89 Nasal Cannula 2.0 07/18/17 11:05 36.6 114 21 98/71 (80) 100 Nasal Cannula 2.0 General Appearance: WD/WN, + mild distress Head: normocephalic, atraumatic Eyes: normal inspection, EOMI, sclerae normal ENT: normal ENT inspection, pharynx normal Neck: supple, no adenopathy, thyroid normal, trachea midline Respiratory/Chest: chest non-tender, lungs clear, normal breath sounds, no respiratory distress Cardiovascular: regular rate, rhythm, no gallop, no murmur Abdomen/GI: normal bowel sounds, soft, no organomegaly, + tenderness (mild) Back: normal inspection, no CVA tenderness Extremities/Musculoskelatal: no calf tenderness, non-tender Neurologic/Psych: alert, oriented x 3 Skin: normal color, warm/dry, no rash Lymphatic: no adenopathy Laboratory Results RUN DATE: 07/18/17 [facility] PAGE 1 RUN TIME: 1048 Specimen Inquiry PATIENT: HUNTER WILLAMS LOC: [facility] U # : [id number] AGE/SX: 87/M ROOM: E103 REG : 07/16/[address]: Siddhartha Mendoza MD : 1930 BED: 1 DIS : STATUS: ADM IN TLOC: SPEC #: [id number] KIMBER: 07/16/17 STATUS: COMP REQ #: [id number] RECD: 07/16/[address] [facility] [address]: Kyler Reyes MD SOURCE: URINE CATH ENTR: 07/16/[address] [facility] [address]: Kam Dickey , D.OPage SPDESC: Jasiel Merlos M.D. ORDERED: CULTURE UR CATH Procedure Result Verified Site URINE CULTURE Final 07/18/17-1048 MORE THAN THREE TYPES OF ORGANISMS PRESENT, ALL HIGH COUNTS MIXED PROBABLE SKIN LESLIE - NO FURTHER IDENTIFICATIONS OR SENSITIVITIES TO FOLLOW. Last 24 Hours Test 07/18/17 12:15 07/18/17 16:44 07/18/17 20:44 07/19/17 05:02 Bedside Glucose 157 mg/dl 125 mg/dl 153 mg/dl White Blood Count 8.18 K/uL Red Blood Count 3.49 M/uL Hemoglobin 10.4 g/dL Hematocrit 31.7 % Mean Corpuscular Volume 90.8 fL Mean Corpuscular Hemoglobin 29.8 pg Mean Corpuscular Hemoglobin Concent 32.8 g/dl Platelet Count 88 K/uL Mean Platelet Volume 11.0 fL Neutrophils (%) (Auto) 81.8 % Lymphocytes (%) (Auto) 8.9 % Monocytes (%) (Auto) 7.3 % Eosinophils (%) (Auto) 1.3 % Basophils (%) (Auto) 0.1 % Neutrophils # (Auto) 6.68 K/uL Lymphocytes # (Auto) 0.73 K/uL Monocytes # (Auto) 0.60 K/uL Eosinophils # (Auto) 0.11 K/uL Basophils # (Auto) 0.01 K/uL RDW Standard Deviation 45.5 fL RDW Coefficient of Variation 13.8 % Immature Granulocyte % (Auto) 0.6 % Immature Granulocyte # (Auto) 0.05 K/uL Platelet Estimate DECREASED Sodium Level 133 mmol/L Potassium Level 4.4 mmol/L Chloride Level 99 mmol/L Carbon Dioxide Level 29 mmol/L Anion Gap 5.0 mmol/L Blood Urea Nitrogen 92 mg/dl Creatinine 3.66 mg/dl Est Creatinine Clear Calc Drug Dose 19.3 ml/min Estimated GFR () 16.5 Estimated GFR (Non- 14.2 BUN/Creatinine Ratio 25.3 Random Glucose 130 mg/dl Calcium Level 8.1 mg/dl Phosphorus Level 6.1 mg/dl Magnesium Level 2.7 mg/dl Lipase 778 U/L Test 07/19/17 05:06 07/19/17 08:09 Bedside Glucose 130 mg/dl Heparin-PF4 Antibody Screen POS CHEST ONE VIEW PORTABLE CLINICAL HISTORY: CONGESTION COMPARISON STUDY: 07/17/2017 FINDINGS: The heart remains enlarged. There is radiographic evidence of emphysema. There is scattered granulomatous calcifications present. There is no overt failure. Slight coarsening of interstitial markings at the right lung base remains unchanged.[ IMPRESSION: Stable findings. Emphysema. Evidence for prior granulomatous disease. Stable right basilar interstitial thickening Electronically signed by: Roberto Yousif M.D. 07/18/2017 7:26 AM Dictated Date/Time: 07/18/2017 7:24 AM The status of this report is Signed. Draft = Not yet reviewed or approved by Radiologist. Signed = Reviewed and approved by Radiologist. <AttendingPhy>Daysi Page DO</AttendingPhy> <FamilyPhy>Kam Dickey, D.OPage</FamilyPhy> <PrimaryPhy>Kam Dickey D.O.</PrimaryPhy> < UnitNumber>[id number]</UnitNumber> <VisitNumber>[id number]</VisitNumber> < PatientName>HUNTER WILLAMS</PatientName> <DateOfBirth>1930</ DateOfBirth> <Location>[facility]</Location> <ServiceDate>07/16/17</ServiceDate> < MNE>ESINDI</MNE> <OrderingPhy>Siddhartha Mendoza MD</OrderingPhy> < OrderingPhyMNE>f rep ord dr tam</OrderingPhyMNE> <DictatingPhyMNE>f rep dict dr tam</DictatingPhyMNE> <CCListMNE>f rep ct mne</CCListMNE> <AdmittingPhyMNE>f pt admit dr tam</AdmittingPhyMNE> <AttendingPhyMNE>f pt attend dr tam</ AttendingPhyMNE> Assessment & Plan Probable complicated UTI/prostatitis in male with renal failure and indwelling catheter. Will start on ertapenem, likely 10 day course. Will follow.
--- NOTE | 2017-07-19 10:51 | Pharmacy Progress Note ---
Glycemic Control Progress Note Date of Service Jul 19, 2017. Scope Glycemic Pharmacist consulted for glycemic control to write orders per [facility] inpatient glycemic control protocol. Objective Accuchecks BSG (last 24hrs): Test 07/18/17 12:15 07/18/17 16:44 07/18/17 20:44 07/19/17 05:02 Bedside Glucose 157 mg/dl (70-99) 125 mg/dl (70-99) 153 mg/dl (70-99) Random Glucose 130 mg/dl (70-99) Test 07/19/17 05:06 Bedside Glucose 130 mg/dl (70-99) HbA1c: Test 07/18/17 04:36 Hemoglobin A1c 7.2 % (4.5-5.6) H Recent Pertinent Medications The patient is currently receiving: * Basal insulin: Lantus 0-10 units every 12 hours - has received 10 units qPM only x2 days * Correctional Insulin: Novolog Correction per scale ACHS Goal Range: Low 140 mg/dL - High 180 mg/dL Correction Factor: 30 mg/dL/unit * Prandial insulin: Per carb ratio of 1 unit per 10 grams CHO consumed Outpatient Anti-Diabetic Meds Lantus 50 units SC BID Assessment & Plan ASSESSMENT: * BSG's ranging 125-192 mg/dL over the last 24 hours after receiving 10 units of insulin yesterday (all basal, no bolus) * Normally would not want all basal. However, patient NPO and therefore would not anticipate need for Novolog *prandial* coverage. No hypoglycemia noted. OK for now. * Changes to stressors * Ordered a diet, but ? whether oral intake is significant at this point. No breakfast or lunch CHO noted on Novolog order. * POD 1 s/p permacath insertion * Will give Lantus 5 units x1 now for moderate elevation at lunch after AM Lantus held. Then will change to only admin in PM as this has controlled BSG's well. PLAN FOR INPATIENT GLYCEMIC CONTROL: * Basal insulin: Lantus 5 units SC x1 now then 0-10 units SQ qPM based on BSG as follows: * 0 units for BSG < 110 mg/dL * 5 units for BSG 110-139 mg/dL * 10 units for BSG 140 mg/dL or greater * Bolus insulin * NovoLog per scale ACHS or Q6hrs while NPO * Goal Range: Low 140 mg/dL - High 180 mg/dL * Correction Factor: 30 mg/dL/unit * Nutritional / Prandial insulin per carb ratio of 1 unit per 10 grams CHO consumed * Please note that the plan above was derived based on current level of insulin resistance and hospital stress. These recommendations are appropriate for inpatient admission only. Plan of care upon discharge will need to be reassessed to avoid potential outpatient hypo/hyperglycemia. Thank you.
[2017-07-19] MEDS: MIDODRINE 2.5 MG TAB PO SCH ×2 (11:48→17:49)
[2017-07-19] MEDS ORDERED: INSULIN GLARGINE SOLOSTAR 100 UNITS/ML 3 ML PEN SC ONE (15:30)
[2017-07-19] MEDS ORDERED: BISACODYL 10 MG SUPP PR STA (16:56)
[2017-07-19] MEDS ORDERED: LACTULOSE SYRUP 30 GM/45 ML UDP PO STA (16:56)
[2017-07-19] MEDS ORDERED: ONDANSETRON INJ 2 MG/ML 2 ML VIAL IV PRN (17:00)
--- NOTE | 2017-07-19 17:26 | Progress Note ---
Internal Med Progress Note Date of Service: Jul 19, 2017. Provider Documentation: SUBJECTIVE: says he is doing ok has some abdominal discomfort denies sob or chest pain says slept ok afebrile OBJECTIVE: Vital Signs-as noted below Exam: General-alert and awake somewhat sleepy. not in distress ENT-Normal hearing Neck-no neck masses Lungs-Cta b/l no wheezing or crackles Heart-S1 and S2 heard regular No murmurs Abdomen-Soft Bowel sounds present Non tender No distension Extremities-No edema No erythema Neuro-alert and awake moves extremities Lab data as noted below. ASSESSMENT & PLAN: : This is an 87-year-old male who presents with hyperkalemia and acute renal failure and chronic kidney disease stage IV. 1. Hyperkalemia. The patient received insulin, dextrose, calcium gluconate and bicarbonate in the ER . The patient has chronic kidney disease stage IV and need dialysis . Refused dialysis multiple times in the past but agreeable now. Initially was on bicarb drip. Currently getting dialysis.Stable now 2. Acute renal failure, chronic kidney disease stage IV. Dialysis as per nephrology. s/p tunnel cath. 3. Chronic congestive heart failure with EF of 40%, holding diuretics . Getting dialysis.Will monitor 4. CAd status post stent placement. Continue aspirin, Plavix, beta kelly, nitrates and statin. stable 5. Hypotension from dialysis? started on midodrine 6. Hypertension. Continue nitrates . Toprol-XL dose decreased for hypotension. will monitor 7 Chronic respiratory failure secondary to chronic obstructive pulmonary disease. Stable. On Advair and albuterol p.r.n. 8 Hx of A fib rate controlled on Toprol xl holding digoxin for renal failure. Not on anticoagulation secondary to hematuria while on Coumadin.. 9. BPH on Flomax recently had urinary retention. f/u with urology. placed on chambers in ER and drained good amount of urine. 10. thrombocytopenia Hit studies resent. No heparin for now 11. UTI/Prostatis? ID recommends 10days of iv Invanz 12. Dvt px scds Disposition transfer to tele pt/ot social service for d/c planning code status full code for now Vital Signs: Date Time Temp Pulse Resp B/P (MAP) Pulse Ox O2 Delivery O2 Flow Rate FiO2 07/19/17 15:45 36.5 119 21 80/57 (65) 98 Nasal Cannula 2.0 102/60 (74) Non-Rebreather 07/19/17 13:30 36.5 115 112/69 (83) 07/19/17 13:15 117 94/66 07/19/17 13:00 117 101/56 07/19/17 12:45 119 90/55 07/19/17 12:30 116 82/50 07/19/17 12:15 116 87/48 07/19/17 12:00 95 Nasal Cannula 3.0 07/19/17 12:00 36.3 116 18 101/61 (74) 95 Nasal Cannula 3.0 07/19/17 12:00 114 85/52 07/19/17 11:45 117 87/52 07/19/17 11:30 123 84/58 07/19/17 11:15 36.3 118 96/56 (69) 07/19/17 11:15 118 96/56 07/19/17 11:00 117 110/68 07/19/17 11:00 36.3 117 64/ (21) 07/19/17 10:50 117 102/64 07/19/17 08:00 36.7 117 18 98/64 (75) 93 Nasal Cannula 3.0 07/19/17 08:00 Nasal Cannula 07/19/17 08:00 93 Nasal Cannula 3.0 07/19/17 06:00 115 12 98/55 (69) 94 Nasal Cannula 3.0 07/19/17 04:00 95 Nasal Cannula 3.0 07/19/17 04:00 36.8 116 20 104/76 (85) 95 Nasal Cannula 3.0 07/19/17 02:00 113 18 96/56 (69) 95 Nasal Cannula 3.0 07/19/17 00:01 36.6 111 18 94/57 (69) 95 Nasal Cannula 3.0 07/18/17 23:59 95 Nasal Cannula 3.0 07/18/17 22:00 116 14 105/58 (74) 99 Nasal Cannula 3.0 07/18/17 20:00 36.5 115 17 85/60 (68) 95 Nasal Cannula 3.0 07/18/17 20:00 95 Nasal Cannula 3.0 07/18/17 18:01 108 18 99/51 (67) 94 Nasal Cannula 2.0 07/18/17 17:31 113 10 86/57 (67) 95 Nasal Cannula 2.0 Lab Results: Results Past 24 Hours Test 07/18/17 20:44 07/19/17 05:02 07/19/17 05:06 07/19/17 08:09 Range/Units Bedside Glucose 153 130 70-99 mg/dl White Blood Count 8.18 4.8-10.8 K/uL Red Blood Count 3.49 4.7-6.1 M/uL Hemoglobin 10.4 14.0-18.0 g/dL Hematocrit 31.7 42-52 % Mean Corpuscular Volume 90.8 80-100 fL Mean Corpuscular Hemoglobin 29.8 25-34 pg Mean Corpuscular Hemoglobin Concent 32.8 32-36 g/dl Platelet Count 88 130-400 K/uL Mean Platelet Volume 11.0 7.4-10.4 fL Neutrophils (%) (Auto) 81.8 % Lymphocytes (%) (Auto) 8.9 % Monocytes (%) (Auto) 7.3 % Eosinophils (%) (Auto) 1.3 % Basophils (%) (Auto) 0.1 % Neutrophils # (Auto) 6.68 1.4-6.5 K/uL Lymphocytes # (Auto) 0.73 1.2-3.4 K/uL Monocytes # (Auto) 0.60 0.11-0.59 K/uL Eosinophils # (Auto) 0.11 0-0.5 K/uL Basophils # (Auto) 0.01 0-0.2 K/uL RDW Standard Deviation 45.5 36.4-46.3 fL RDW Coefficient of Variation 13.8 11.5-14.5 % Immature Granulocyte % (Auto) 0.6 % Immature Granulocyte # (Auto) 0.05 0.00-0.02 K/uL Platelet Estimate DECREASED Sodium Level 133 136-145 mmol/L Potassium Level 4.4 3.5-5.1 mmol/L Chloride Level 99 98-107 mmol/L Carbon Dioxide Level 29 21-32 mmol/L Anion Gap 5.0 3-11 mmol/L Blood Urea Nitrogen 92 7-18 mg/dl Creatinine 3.66 0.60-1.40 mg/dl Est Creatinine Clear Calc Drug Dose 19.3 ml/min Estimated GFR () 16.5 Estimated GFR (Non- 14.2 BUN/Creatinine Ratio 25.3 -20 Random Glucose 130 70-99 mg/dl Calcium Level 8.1 8.5-10.1 mg/dl Phosphorus Level 6.1 2.5-4.9 mg/dl Magnesium Level 2.7 1.8-2.4 mg/dl Lipase 778 73-393 U/L Heparin-PF4 Antibody Screen POS NEG Test 07/19/17 10:38 07/19/17 16:27 Range/Units Bedside Glucose 191 168 70-99 mg/dl
[2017-07-19] MEDS: ERTAPENEM IV 500 MG in SODIUM CHLORIDE 0.9% 50 ML IV SCH (17:46)
--- NOTE | 2017-07-19 20:04 | DIAGNOSTIC IMAGING REPORT ---
VENOUS DOPPLER LWR EXT BILA CLINICAL HISTORY: 87 years-old Male presenting with Heparin induced thrombocytopenia. TECHNIQUE: Real-time grayscale and color and spectral Doppler ultrasound imaging of the veins of the bilateral lower extremities was performed. Compression and augmentation were also utilized. COMPARISON: 05/26/2017. FINDINGS: Right: Common femoral vein: Patent. Greater saphenous vein: Patent. Deep femoral vein: Patent. Femoral vein: Patent. Popliteal vein: Patent. Calf veins: Limited visualization. Left: Common femoral vein: Patent. Greater saphenous vein: Patent. Deep femoral vein: Patent. Femoral vein: Patent. Popliteal vein: Patent. Calf veins: Patent. Other: None. IMPRESSION: No evidence of deep venous thrombosis. Electronically signed by: Marcello Cullen M.D. 07/19/2017 8:02 PM Dictated Date/Time: 07/19/2017 8:01 PM
[2017-07-19] MEDS: GABAPENTIN 300 MG CAP PO SCH (21:53)
[2017-07-19] MEDS: TAMSULOSIN HCL 0.4 MG CAP PO SCH (21:53)
[2017-07-19] MEDS: SIMVASTATIN 40 MG TAB PO SCH (21:53)
[2017-07-19] MEDS: FINASTERIDE 5 MG TAB PO SCH (21:53)
[2017-07-19] MEDS: INSULIN GLARGINE SOLOSTAR 100 UNITS/ML 3 ML PEN SC SCH (21:55)
[2017-07-20] VITALS (21 sets, daily range): BP systolic 90–122; BP diastolic 53–86; PULSE 111–124; TEMP 35.9–37; O2SAT 91–97
[2017-07-20 05:35] LABS: HEMATOCRIT 31.6 % (42-52); HEMOGLOBIN 10.2 g/dL (14.0-18.0); MEAN CORPUSCULAR HEMOGLOBIN 29.1 pg (25-34); MEAN CORPUSCULAR HGB CONC 32.3 g/dl (32-36); RED CELL DISTRIBUTION WIDTH CV 13.4 % (11.5-14.5); RED CELL DISTRIBUTION WIDTH SD 43.8 fL (36.4-46.3)
[2017-07-20 05:39] LABS: PLATELET COUNT 81 K/uL (130-400)
[2017-07-20 06:05] LABS: CALCIUM 8.3 mg/dl (8.5-10.1); CREATININE 3.17 mg/dl (0.60-1.40); POTASSIUM 4.4 mmol/L (3.5-5.1)
[2017-07-20 06:24] LABS: BASO % 0.3 %; BASO ABS # 0.02 K/uL (0-0.2); EOS % 1.8 %; EOS ABS # 0.13 K/uL (0-0.5); IG# 0.03 K/uL (0.00-0.02); LYMPH % 5.1 %; LYMPH ABS # 0.38 K/uL (1.2-3.4); MONO % 11.8 %; MONO ABS # 0.87 K/uL (0.11-0.59); NEUT % 80.6 %; NEUT ABS # 5.97 K/uL (1.4-6.5)
--- NOTE | 2017-07-20 06:39 | Nephrology Progress Note ---
Nephrology Progress Note Date of Service: Jul 20, 2017. Subjective 87 yo male with ckd stage 5 who presented with hyperkalemia and hypermagnesemia and uremic symptoms. had tunneled line placed. has underwent daily dialysis and numbers are improving. pt to me appears more comfortable. pt though still with decreased appetite and constipated. platelet count has dropped to 81. Objective Date Time Temp Pulse Resp B/P (MAP) Pulse Ox O2 Delivery O2 Flow Rate FiO2 07/20/17 04:00 Nasal Cannula 2.0 07/20/17 03:34 36.8 111 18 111/70 (84) 97 Nasal Cannula 2.0 07/20/17 00:00 Nasal Cannula 2.0 07/19/17 23:47 36.5 108 20 92/69 (77) 95 Nasal Cannula 2.0 07/19/17 20:00 96 Nasal Cannula 2.0 07/19/17 19:30 37.1 114 19 98/64 (75) 96 Nasal Cannula 2.0 116/70 (85) 07/19/17 16:00 Nasal Cannula 2.0 07/19/17 15:45 36.5 119 21 80/57 (65) 98 Nasal Cannula 2.0 102/60 (74) Non-Rebreather 07/19/17 13:30 36.5 115 112/69 (83) 07/19/17 13:15 117 94/66 07/19/17 13:00 117 101/56 07/19/17 12:45 119 90/55 07/19/17 12:30 116 82/50 07/19/17 12:15 116 87/48 07/19/17 12:00 95 Nasal Cannula 3.0 07/19/17 12:00 36.3 116 18 101/61 (74) 95 Nasal Cannula 3.0 07/19/17 12:00 114 85/52 07/19/17 11:45 117 87/52 07/19/17 11:30 123 84/58 07/19/17 11:15 36.3 118 96/56 (69) 07/19/17 11:15 118 96/56 07/19/17 11:00 117 110/68 07/19/17 11:00 36.3 117 64/ (21) 07/19/17 10:50 117 102/64 07/19/17 08:00 36.7 117 18 98/64 (75) 93 Nasal Cannula 3.0 07/19/17 08:00 Nasal Cannula 07/19/17 08:00 93 Nasal Cannula 3.0 Physical Exam: General-aaox3 Eyes-no scleral icterus ENT-mmm Neck-supple Lungs-clear Heart-tachycardia Abdomen-bs+ s/nt/nd Extremities-no c/c/e Neuro-nonfocal Current Inpatient Medications Medications (Trade) Dose Ordered Sig/Ronak Route Start Time Stop Time Status Last Admin Dose Admin Hydromorphone HCl (Dilaudid Tab) 0.5 mg Q4H PRN PO 07/16/17 21:45 07/30/17 21:44 07/19/17 04:05 0.5 MG Aspirin (Ecotrin Tab) 81 mg QAM PO 07/17/17 09:00 08/16/17 08:59 07/19/17 07:30 81 MG Clopidogrel Bisulfate (plAVix TAB) 75 mg QAM PO 07/17/17 09:00 08/16/17 08:59 07/19/17 07:30 75 MG Finasteride (Proscar Tab) 5 mg HS PO 07/17/17 21:00 08/16/17 20:59 07/19/17 21:53 5 MG Salmeterol Xinafoate/ Fluticasone (Advair Diskus 250/50 Inh) 1 puff BID INH 07/17/17 09:00 08/16/17 08:59 07/19/17 21:52 1 PUFF Gabapentin (Neurontin Cap) 300 mg HS PO 07/17/17 21:00 08/16/17 20:59 07/19/17 21:53 300 MG Isosorbide Dinitrate (Isordil Tab) 5 mg TID@0700,1200,1700 PO 07/17/17 07:00 08/16/17 06:59 07/19/17 17:47 5 MG Nitroglycerin (Nitrostat Tab) 0.4 mg UD PRN UT 07/16/17 21:45 08/15/17 21:44 Simvastatin (Zocor Tab) 40 mg QPM PO 07/17/17 21:00 08/16/17 20:59 07/19/17 21:53 40 MG Tamsulosin HCl (Flomax Cap) 0.4 mg HS PO 07/17/17 21:00 1/17/18 20:59 07/19/17 21:53 0.4 MG Albuterol (Ventolin Hfa Inhaler) 2 puffs Q4H PRN INH 07/16/17 21:45 08/15/17 21:44 Miscellaneous Information (Consult Glycemic Management Pharmacy) 1 ea UD PRN N/A 07/17/17 10:40 08/16/17 10:39 Digoxin (Lanoxin Tab) 0.0625 mg Q2D@1600 PO 07/20/17 16:00 08/19/17 15:59 Insulin Aspart (novoLOG ASPART) SLIDING SCALE ACHS SC 07/18/17 16:45 08/17/17 16:44 07/19/17 11:48 1 UNITS Al Hydroxide/Mg Hydroxide (Maalox Susp) 15 ml Q6H PRN PO 07/18/17 20:45 08/17/17 20:44 Docusate Sodium (coLACE CAP) 100 mg BID PO 07/19/17 09:00 08/18/17 08:59 07/19/17 21:53 100 MG Polyethylene (Miralax Powder Packet) 17 gm DAILY PO 07/19/17 09:00 08/18/17 08:59 07/19/17 07:53 17 GM Calcium Acetate (Phoslo Cap) 667 mg TIDM PO 07/19/17 07:15 08/18/17 07:14 07/19/17 16:32 667 MG Insulin Glargine (Lantus Solostar Pen) SEE PROTOCOL T... QPM SC 07/19/17 21:00 08/18/17 20:59 07/19/17 21:55 10 UNITS Midodrine (Proamatine Tab) 5 mg TID@08,12,17 PO 07/19/17 12:00 08/18/17 11:59 07/19/17 17:49 5 MG Ertapenem 500 mg/ Sodium Chloride 55 ml @ 110 mls/hr DAILY@1000 IV 07/19/17 10:30 07/29/17 10:29 07/19/17 17:46 110 MLS/HR Metoprolol Tartrate (Lopressor Tab) 50 mg BID PO 07/20/17 09:00 08/19/17 08:59 Ondansetron HCl (Zofran Inj) 4 mg Q6H PRN IV 07/19/17 17:00 08/18/17 16:59 07/19/17 17:46 4 MG Last 24 Hours Test 07/19/17 08:09 07/19/17 10:38 07/19/17 16:27 07/19/17 20:33 Heparin-PF4 Antibody Screen POS Bedside Glucose 191 mg/dl 168 mg/dl 152 mg/dl Test 07/20/17 05:09 White Blood Count 7.40 K/uL Red Blood Count 3.51 M/uL Hemoglobin 10.2 g/dL Hematocrit 31.6 % Mean Corpuscular Volume 90.0 fL Mean Corpuscular Hemoglobin 29.1 pg Mean Corpuscular Hemoglobin Concent 32.3 g/dl Platelet Count 81 K/uL Mean Platelet Volume 11.0 fL Neutrophils (%) (Auto) 80.6 % Lymphocytes (%) (Auto) 5.1 % Monocytes (%) (Auto) 11.8 % Eosinophils (%) (Auto) 1.8 % Basophils (%) (Auto) 0.3 % Neutrophils # (Auto) 5.97 K/uL Lymphocytes # (Auto) 0.38 K/uL Monocytes # (Auto) 0.87 K/uL Eosinophils # (Auto) 0.13 K/uL Basophils # (Auto) 0.02 K/uL RDW Standard Deviation 43.8 fL RDW Coefficient of Variation 13.4 % Immature Granulocyte % (Auto) 0.4 % Immature Granulocyte # (Auto) 0.03 K/uL Hypersegmented Polys 1+ Sodium Level 134 mmol/L Potassium Level 4.4 mmol/L Chloride Level 99 mmol/L Carbon Dioxide Level 28 mmol/L Anion Gap 7.0 mmol/L Blood Urea Nitrogen 73 mg/dl Creatinine 3.17 mg/dl Est Creatinine Clear Calc Drug Dose 22.6 ml/min Estimated GFR () 19.6 Estimated GFR (Non- 16.9 BUN/Creatinine Ratio 23.2 Random Glucose 136 mg/dl Calcium Level 8.3 mg/dl Magnesium Level 2.6 mg/dl Assessment & Plan CKD stage 5-getting daily dialysis. for dialysis again today and will do 3 hours , 300/600, no uf. 3k bath. hypotension-not removing any fluid. on midodrine to help with bp and attempting to slow down heart rate. do not feel tachycardia is physiological in nature. on dig and metoprolol. [facility] and will speak to case management about having pt be accepted there.
[2017-07-20] MEDS: DOCUSATE SODIUM 100 MG CAP PO SCH ×2 (08:05→20:31)
[2017-07-20] MEDS: POLYETHYLENE (MIRALAX) 17 GM PACK PO SCH ×2 (08:05)
[2017-07-20] MEDS: CLOPIDOGREL BISULFATE 75 MG TAB PO SCH (08:07)
[2017-07-20] MEDS: MIDODRINE 2.5 MG TAB PO SCH ×3 (08:07→18:53)
[2017-07-20] MEDS: ASPIRIN 81 MG ECTAB PO SCH (08:07)
[2017-07-20] MEDS: FLUTICASONE/SALMETEROL 250/50 (ADVAIR) 14 PUFF/1 INHALER INH SCH ×2 (08:08→20:30)
[2017-07-20] MEDS: CALCIUM ACETATE 667MG GELCAP PO SCH ×3 (08:08→18:53)
[2017-07-20] MEDS: INSULIN ASPART 100 UNITS/ML 3 ML PEN SC SCH ×4 (08:11→21:04)
[2017-07-20] MEDS: METOPROLOL TARTRATE 50 MG TAB PO SCH ×2 (08:55→20:31)
[2017-07-20] MEDS: ISOSORBIDE DINITRATE 5 MG TAB PO SCH ×3 (08:56→18:53)
[2017-07-20] MEDS: ERTAPENEM IV 500 MG in SODIUM CHLORIDE 0.9% 50 ML IV SCH (10:10)
[2017-07-20] MEDS ORDERED: DIGOXIN 0.125 MG TAB PO SCH (16:00)
--- NOTE | 2017-07-20 16:26 | Progress Note ---
Internal Med Progress Note Date of Service: Jul 20, 2017. Provider Documentation: SUBJECTIVE: says he is ok eating ok moved bowels afebrile denies any pain denies sob OBJECTIVE: Vital Signs-as noted below Exam: General-alert and awake somewhat sleepy. not in distress ENT-Normal hearing Neck-no neck masses Lungs-Cta b/l no wheezing or crackles Heart-S1 and S2 heard regular No murmurs Abdomen-Soft Bowel sounds present Non tender No distension Extremities-No edema No erythema Neuro-alert and awake moves extremities Lab data as noted below. ASSESSMENT & PLAN: : This is an 87-year-old male who presents with hyperkalemia and acute renal failure and chronic kidney disease stage IV. 1. Hyperkalemia. The patient received insulin, dextrose, calcium gluconate and bicarbonate in the ER . The patient has chronic kidney disease stage IV and need dialysis . Refused dialysis multiple times in the past but agreeable now. Initially was on bicarb drip. Currently getting dialysis.Stable now. 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 Acute renal failure, chronic kidney disease stage IV. Dialysis as per nephrology. s/p tunnel cath. 3. Chronic congestive heart failure with EF of 40%, holding diuretics . Getting dialysis.Will d/w Nephrology regarding restarting dialysis.Will monitor 4. CAd status post stent placement. Continue aspirin, Plavix, beta kelly, nitrates and statin. stable 5. Hypotension from dialysis? started on midodrine 6. Hypertension. Continue nitrates . Toprol-XL dose decreased for hypotension. will monitor 7 Chronic respiratory failure secondary to chronic obstructive pulmonary disease. Stable. On Advair and albuterol p.r.n. 8 Hx of A fib rate controlled on Toprol xl initially held digoxin for renal failure.restarted digoxin at reduced dose. Not on anticoagulation secondary to hematuria while on Coumadin.. 9. BPH on Flomax recently had urinary retention. f/u with urology. placed on chambers in ER and drained good amount of urine. 10. thrombocytopenia Hit studies positive. Await final studies. No heparin . f/u labs 11. UTI/Prostatis? ID recommends 10days of iv Invanz 12. Dvt px scds Disposition Monitor in tele pt/ot social service for d/c planning plan for placement code status full code for now Vital Signs: Date Time Temp Pulse Resp B/P (MAP) Pulse Ox O2 Delivery O2 Flow Rate FiO2 07/20/17 16:15 122 116/74 07/20/17 16:00 118 109/68 07/20/17 15:45 120 103/65 07/20/17 15:30 119 97/64 07/20/17 15:15 121 100/58 07/20/17 15:00 36.1 119 19 105/62 (76) 91 Nasal Cannula 3.0 07/20/17 15:00 120 106/62 07/20/17 14:45 36.1 119 109/62 (78) 07/20/17 12:00 Nasal Cannula 2.0 07/20/17 11:57 36.9 119 18 113/76 (88) 94 Nasal Cannula 3.0 07/20/17 08:55 96/53 (67) 07/20/17 08:29 37.0 119 20 90/67 (75) 91 Nasal Cannula 2.0 07/20/17 08:00 Nasal Cannula 2.0 07/20/17 04:00 Nasal Cannula 2.0 07/20/17 03:34 36.8 111 18 111/70 (84) 97 Nasal Cannula 2.0 07/20/17 00:00 Nasal Cannula 2.0 07/19/17 23:47 36.5 108 20 92/69 (77) 95 Nasal Cannula 2.0 07/19/17 20:00 96 Nasal Cannula 2.0 07/19/17 19:30 37.1 114 19 98/64 (75) 96 Nasal Cannula 2.0 116/70 (85) Lab Results: Results Past 24 Hours Test 07/19/17 16:27 07/19/17 20:33 07/20/17 05:09 07/20/17 06:39 Range/Units Bedside Glucose 168 152 120 70-99 mg/dl White Blood Count 7.40 4.8-10.8 K/uL Red Blood Count 3.51 4.7-6.1 M/uL Hemoglobin 10.2 14.0-18.0 g/dL Hematocrit 31.6 42-52 % Mean Corpuscular Volume 90.0 80-100 fL Mean Corpuscular Hemoglobin 29.1 25-34 pg Mean Corpuscular Hemoglobin Concent 32.3 32-36 g/dl Platelet Count 81 130-400 K/uL Mean Platelet Volume 11.0 7.4-10.4 fL Neutrophils (%) (Auto) 80.6 % Lymphocytes (%) (Auto) 5.1 % Monocytes (%) (Auto) 11.8 % Eosinophils (%) (Auto) 1.8 % Basophils (%) (Auto) 0.3 % Neutrophils # (Auto) 5.97 1.4-6.5 K/uL Lymphocytes # (Auto) 0.38 1.2-3.4 K/uL Monocytes # (Auto) 0.87 0.11-0.59 K/uL Eosinophils # (Auto) 0.13 0-0.5 K/uL Basophils # (Auto) 0.02 0-0.2 K/uL RDW Standard Deviation 43.8 36.4-46.3 fL RDW Coefficient of Variation 13.4 11.5-14.5 % Immature Granulocyte % (Auto) 0.4 % Immature Granulocyte # (Auto) 0.03 0.00-0.02 K/uL Hypersegmented Polys 1+ Sodium Level 134 136-145 mmol/L Potassium Level 4.4 3.5-5.1 mmol/L Chloride Level 99 98-107 mmol/L Carbon Dioxide Level 28 21-32 mmol/L Anion Gap 7.0 3-11 mmol/L Blood Urea Nitrogen 73 7-18 mg/dl Creatinine 3.17 0.60-1.40 mg/dl Est Creatinine Clear Calc Drug Dose 22.6 ml/min Estimated GFR () 19.6 Estimated GFR (Non- 16.9 BUN/Creatinine Ratio 23.2 10-20 Random Glucose 136 70-99 mg/dl Calcium Level 8.3 8.5-10.1 mg/dl Magnesium Level 2.6 1.8-2.4 mg/dl Test 07/20/17 11:32 Range/Units Bedside Glucose 174 70-99 mg/dl
[2017-07-20] MEDS: TAMSULOSIN HCL 0.4 MG CAP PO SCH (20:31)
[2017-07-20] MEDS: SIMVASTATIN 40 MG TAB PO SCH (20:32)
[2017-07-20] MEDS: FINASTERIDE 5 MG TAB PO SCH (20:32)
[2017-07-20] MEDS: GABAPENTIN 300 MG CAP PO SCH (20:32)
[2017-07-20] MEDS: INSULIN GLARGINE SOLOSTAR 100 UNITS/ML 3 ML PEN SC SCH (21:02)
[2017-07-21] VITALS (22 sets, daily range): BP systolic 73–104; BP diastolic 46–83; PULSE 118–128; TEMP 36.4–37.2; O2SAT 91–100
[2017-07-21 05:51] LABS: HEMOGLOBIN 9.9 g/dL (14.0-18.0); MEAN CELL VOLUME 91.4 fL (80-100); MEAN CORPUSCULAR HEMOGLOBIN 29.2 pg (25-34); MEAN CORPUSCULAR HGB CONC 31.9 g/dl (32-36); RED CELL DISTRIBUTION WIDTH CV 13.3 % (11.5-14.5); RED CELL DISTRIBUTION WIDTH SD 44.6 fL (36.4-46.3); WHITE BLOOD COUNT 7.56 K/uL (4.8-10.8)
[2017-07-21 05:52] LABS: MEAN PLATELET VOLUME 10.9 fL (7.4-10.4); PLATELET COUNT 78 K/uL (130-400)
[2017-07-21 06:18] LABS: BASO % 0.4 %; BASO ABS # 0.03 K/uL (0-0.2); EOS % 2.8 %; EOS ABS # 0.21 K/uL (0-0.5); IG# 0.05 K/uL (0.00-0.02); LYMPH % 10.3 %; LYMPH ABS # 0.78 K/uL (1.2-3.4); MONO % 8.5 %; MONO ABS # 0.64 K/uL (0.11-0.59); NEUT % 77.3 %; NEUT ABS # 5.85 K/uL (1.4-6.5)
[2017-07-21 06:30] LABS: CALCIUM 8.1 mg/dl (8.5-10.1); CREATININE 2.51 mg/dl (0.60-1.40); POTASSIUM 4.8 mmol/L (3.5-5.1)
[2017-07-21] MEDS: POLYETHYLENE (MIRALAX) 17 GM PACK PO SCH ×2 (07:55→07:56)
[2017-07-21] MEDS: CALCIUM ACETATE 667MG GELCAP PO SCH ×3 (07:56→16:38)
[2017-07-21] MEDS: METOPROLOL TARTRATE 50 MG TAB PO SCH ×2 (07:56→20:53)
[2017-07-21] MEDS: ASPIRIN 81 MG ECTAB PO SCH (07:56)
[2017-07-21] MEDS: DOCUSATE SODIUM 100 MG CAP PO SCH ×2 (07:56→20:52)
[2017-07-21] MEDS: FLUTICASONE/SALMETEROL 250/50 (ADVAIR) 14 PUFF/1 INHALER INH SCH ×2 (07:57→20:52)
[2017-07-21] MEDS: ISOSORBIDE DINITRATE 5 MG TAB PO SCH ×3 (07:57→16:12)
[2017-07-21] MEDS: MIDODRINE 2.5 MG TAB PO SCH (07:57)
[2017-07-21] MEDS ORDERED: EPOETIN ALFA INJ 4,000 UNITS in SYRINGE 0 ML IV. SCH (08:00)
[2017-07-21] MEDS ORDERED: EPOETIN ALFA 4000 UNITS/ML VIAL IV SCH (08:00)
[2017-07-21] MEDS: INSULIN ASPART 100 UNITS/ML 3 ML PEN SC SCH ×4 (08:00→20:51)
[2017-07-21] MEDS: CLOPIDOGREL BISULFATE 75 MG TAB PO SCH (09:10)
--- NOTE | 2017-07-21 09:43 | Dialysis Progress Note ---
Nephrology Dialysis Note Date of Service: Jul 21, 2017. Subjective 87 yo male with ckd stage 5 who presented with hyperkalemia and hypermagnesemia and uremic symptoms. had tunneled line placed. has had slow daily dialysis for several days and numbers are much improved. pt looks better as well. continues to have tachycardia and low blood pressures. appetite is improving. Objective Date Time Temp Pulse Resp B/P (MAP) Pulse Ox O2 Delivery O2 Flow Rate FiO2 07/21/17 07:02 36.7 122 14 100/60 (73) 97 Nasal Cannula 3.0 Humidified Oxygen 07/21/17 04:09 37.2 118 17 103/59 (74) 99 Humidified Air 3.0 07/21/17 04:00 Nasal Cannula 2.0 07/21/17 00:09 36.8 119 20 95/59 (71) 94 Humidified Air 3.0 07/20/17 23:59 Nasal Cannula 2.0 07/20/17 20:00 120 07/20/17 20:00 Nasal Cannula 2.0 07/20/17 18:55 37.0 121 20 122/86 (98) 94 Nasal Cannula 3.0 07/20/17 18:52 121 07/20/17 18:10 35.9 121 117/68 (84) 07/20/17 18:00 120 110/71 07/20/17 18:00 35.9 121 18 117/68 (84) 96 Nasal Cannula 2.0 07/20/17 17:45 116 108/68 07/20/17 17:30 121 117/79 07/20/17 17:15 121 108/57 07/20/17 17:00 119 116/61 07/20/17 16:45 119 112/61 07/20/17 16:30 124 106/59 07/20/17 16:15 122 116/74 07/20/17 16:00 118 109/68 07/20/17 16:00 Nasal Cannula 2.0 07/20/17 15:45 120 103/65 07/20/17 15:30 119 97/64 07/20/17 15:15 121 100/58 07/20/17 15:00 36.1 119 19 105/62 (76) 91 Nasal Cannula 3.0 07/20/17 15:00 120 106/62 07/20/17 14:45 36.1 119 109/62 (78) 07/20/17 12:00 Nasal Cannula 2.0 07/20/17 11:57 36.9 119 18 113/76 (88) 94 Nasal Cannula 3.0 Physical Exam: General-aaox3 Eyes-no scleral icterus ENT-mmm Neck-supple Lungs-cta Heart-tachycardia Abdomen-bs+ s/nt/nd Extremities-no c/c/e Neuro-nonfocal Current Inpatient Medications Medications (Trade) Dose Ordered Sig/Ronak Route Start Time Stop Time Status Last Admin Dose Admin Hydromorphone HCl (Dilaudid Tab) 0.5 mg Q4H PRN PO 07/16/17 21:45 07/30/17 21:44 07/19/17 04:05 0.5 MG Aspirin (Ecotrin Tab) 81 mg QAM PO 07/17/17 09:00 08/16/17 08:59 07/21/17 07:56 81 MG Clopidogrel Bisulfate (plAVix TAB) 75 mg QAM PO 07/17/17 09:00 08/16/17 08:59 07/21/17 09:10 75 MG Finasteride (Proscar Tab) 5 mg HS PO 07/17/17 21:00 08/16/17 20:59 07/20/17 20:32 5 MG Salmeterol Xinafoate/ Fluticasone (Advair Diskus 250/50 Inh) 1 puff BID INH 07/17/17 09:00 08/16/17 08:59 07/21/17 07:57 1 PUFF Gabapentin (Neurontin Cap) 300 mg HS PO 07/17/17 21:00 08/16/17 20:59 07/20/17 20:32 300 MG Isosorbide Dinitrate (Isordil Tab) 5 mg TID@0700,1200,1700 PO 07/17/17 07:00 08/16/17 06:59 07/21/17 07:57 5 MG Nitroglycerin (Nitrostat Tab) 0.4 mg UD PRN UT 07/16/17 21:45 08/15/17 21:44 Simvastatin (Zocor Tab) 40 mg QPM PO 07/17/17 21:00 08/16/17 20:59 07/20/17 20:32 40 MG Tamsulosin HCl (Flomax Cap) 0.4 mg HS PO 07/17/17 21:00 08/16/17 20:59 07/20/17 20:31 0.4 MG Albuterol (Ventolin Hfa Inhaler) 2 puffs Q4H PRN INH 07/16/17 21:45 08/15/17 21:44 Miscellaneous Information (Consult Glycemic Management Pharmacy) 1 ea UD PRN N/A 07/17/17 10:40 08/16/17 10:39 Digoxin (Lanoxin Tab) 0.0625 mg Q2D@1600 PO 07/20/17 16:00 08/19/17 15:59 07/20/17 18:52 0.0625 MG Insulin Aspart (novoLOG ASPART) SLIDING SCALE ACHS SC 07/18/17 16:45 08/17/17 16:44 07/21/17 08:00 1 UNITS Al Hydroxide/Mg Hydroxide (Maalox Susp) 15 ml Q6H PRN PO 07/18/17 20:45 08/17/17 20:44 Docusate Sodium (coLACE CAP) 100 mg BID PO 07/19/17 09:00 08/18/17 08:59 07/21/17 07:56 100 MG Polyethylene (Miralax Powder Packet) 17 gm DAILY PO 07/19/17 09:00 08/18/17 08:59 07/21/17 07:55 17 GM Calcium Acetate (Phoslo Cap) 667 mg TIDM PO 07/19/17 07:15 08/18/17 07:14 07/21/17 07:56 667 MG Insulin Glargine (Lantus Solostar Pen) SEE PROTOCOL T... QPM SC 07/19/17 21:00 08/18/17 20:59 07/20/17 21:02 10 UNITS Midodrine (Proamatine Tab) 5 mg TID@08,,17 PO 07/19/17 12:00 08/18/17 11:59 07/21/17 07:57 5 MG Ertapenem 500 mg/ Sodium Chloride 55 ml @ 110 mls/hr DAILY@1000 IV 07/19/17 10:30 07/29/17 10:29 07/20/17 10:10 110 MLS/HR Metoprolol Tartrate (Lopressor Tab) 50 mg BID PO 07/20/17 09:00 08/19/17 08:59 07/21/17 07:56 50 MG Ondansetron HCl (Zofran Inj) 4 mg Q6H PRN IV 07/19/17 17:00 08/18/17 16:59 07/19/17 17:46 4 MG Polyethylene (Miralax Powder Packet) 17 gm DAILY PO 07/20/17 09:00 08/19/17 08:59 Epoetin Alexis 4000 units/Syringe 0.2 ml @ 1 mls/min TODAY@0800 IV. 07/21/17 08:00 07/21/17 18:00 Last 24 Hours Test 07/20/17 11:32 07/20/17 16:13 07/20/17 20:34 07/21/17 05:34 Bedside Glucose 174 mg/dl 114 mg/dl 215 mg/dl White Blood Count 7.56 K/uL Red Blood Count 3.39 M/uL Hemoglobin 9.9 g/dL Hematocrit 31.0 % Mean Corpuscular Volume 91.4 fL Mean Corpuscular Hemoglobin 29.2 pg Mean Corpuscular Hemoglobin Concent 31.9 g/dl Platelet Count 78 K/uL Mean Platelet Volume 10.9 fL Neutrophils (%) (Auto) 77.3 % Lymphocytes (%) (Auto) 10.3 % Monocytes (%) (Auto) 8.5 % Eosinophils (%) (Auto) 2.8 % Basophils (%) (Auto) 0.4 % Neutrophils # (Auto) 5.85 K/uL Lymphocytes # (Auto) 0.78 K/uL Monocytes # (Auto) 0.64 K/uL Eosinophils # (Auto) 0.21 K/uL Basophils # (Auto) 0.03 K/uL RDW Standard Deviation 44.6 fL RDW Coefficient of Variation 13.3 % Immature Granulocyte % (Auto) 0.7 % Immature Granulocyte # (Auto) 0.05 K/uL Sodium Level 134 mmol/L Potassium Level 4.8 mmol/L Chloride Level 102 mmol/L Carbon Dioxide Level 28 mmol/L Anion Gap 4.0 mmol/L Blood Urea Nitrogen 47 mg/dl Creatinine 2.51 mg/dl Est Creatinine Clear Calc Drug Dose 28.6 ml/min Estimated GFR () 26.0 Estimated GFR (Non- 22.5 BUN/Creatinine Ratio 18.6 Random Glucose 134 mg/dl Calcium Level 8.1 mg/dl Magnesium Level 2.4 mg/dl Assessment & Plan CKD stage 5-switch to three days a week dialysis. for dialysis again on monday. seen on dialysis today. no fluid removal. dialyzing on 2k bath, 3 hours, no fluid removal. hypotension-not removing any fluid. on midodrine to help with bp. will raise the midodrine to 10 tid to help with bp. Anemia-will give dose of procrit 4000 units today to help with anemia with goal hg of 10 to 11. Dialysis unit-working on being accepted at the [facility].
[2017-07-21] MEDS: MIDODRINE 10 MG TAB PO SCH ×2 (12:18→16:13)
[2017-07-21] MEDS: ERTAPENEM IV 500 MG in SODIUM CHLORIDE 0.9% 50 ML IV SCH (12:35)
--- NOTE | 2017-07-21 13:13 | Pharmacy Progress Note ---
Pharmacy Glycemic Short Note 2 Date of Service Jul 21, 2017. OUTPATIENT ANTIDIABETIC REGIMEN: * Lantus 50 units SQ BID * HbA1c: 7.2% (07/18/17) ASSESSMENT: * Ms Lopez is an 87yo diabetic female, admitted with EDUAR/hyperkalemia. * Pt is POD #3 s/p perm cath insertion, and has been receiving daily dialysis treatments. * BSGs have been relatively well controlled with ~15-20 units of insulin per day. PLAN FOR INPATIENT GLYCEMIC CONTROL: * Basal insulin * Give 0-10 units SQ qPM based on BSG as follows: * 0 units for BSG < 110 mg/dL * 5 units for BSG 110-139 mg/dL * 10 units for BSG 140 mg/dL or greater * Bolus insulin * NovoLog per scale ACHS or Q6hrs while NPO * Goal Range: Low 140 mg/dL - High 180 mg/dL * Correction Factor: 30 mg/dL/unit * Nutritional / Prandial insulin per carb ratio of 1 unit per 10 grams CHO consumed
--- NOTE | 2017-07-21 17:43 | Progress Note ---
Internal Med Progress Note Date of Service: Jul 21, 2017. Provider Documentation: SUBJECTIVE: denies any pain eating ok denies sob denies nausea afebrile denies any complaints OBJECTIVE: Vital Signs-as noted below Exam: General-alert and awake somewhat sleepy. not in distress ENT-Normal hearing Neck-no neck masses Lungs-Cta b/l no wheezing or crackles Heart-S1 and S2 heard regular No murmurs Abdomen-Soft Bowel sounds present Non tender No distension Extremities-No edema No erythema Neuro-alert and awake moves extremities Lab data as noted below. ASSESSMENT & PLAN: : This is an 87-year-old male who presents with hyperkalemia and acute renal failure and chronic kidney disease stage IV. 1. Hyperkalemia. The patient received insulin, dextrose, calcium gluconate and bicarbonate in the ER . The patient has chronic kidney disease stage IV and need dialysis . Refused dialysis multiple times in the past but agreeable now. Initially was on bicarb drip. Currently getting dialysis.Stable now. 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 Await placement 2. Acute renal failure, chronic kidney disease stage IV. Dialysis as per nephrology. s/p tunnel cath.Stable 3. Chronic congestive heart failure with EF of 40%, holding diuretics . Getting dialysis.Will d/w Nephrology regarding restarting dialysis.Will monitor 4. CAd status post stent placement. Continue aspirin, Plavix, beta kelly, nitrates and statin. stable 5. Hypotension and tachycardia from dialysis? started on midodrine 6. Hypertension. Continue nitrates . Toprol-XL dose decreased for hypotension. will monitor 7 Chronic respiratory failure secondary to chronic obstructive pulmonary disease. Stable. On Advair and albuterol p.r.n. 8 Hx of A fib on Toprol xl initially held digoxin for renal failure.restarted digoxin at reduced dose.Toprol xl dose reduced for hypotension Not on anticoagulation secondary to hematuria while on Coumadin..HR elevated- will d/w cardiology 9. BPH on Flomax recently had urinary retention. f/u with urology. placed on chambers in ER and drained good amount of urine. 10. thrombocytopenia Hit studies positive. Await final studies. No heparin . f/u labs 11. UTI/Prostatis? ID recommends 10days of iv Invanz 12. Dvt px scds Disposition Monitor in tele pt/ot social service for d/c planning plan for placement code status full code for now Vital Signs: Date Time Temp Pulse Resp B/P (MAP) Pulse Ox O2 Delivery O2 Flow Rate FiO2 07/21/17 16:00 Nasal Cannula 2.0 07/21/17 15:34 36.6 121 20 103/70 (81) 98 Nasal Cannula 2.0 Humidified Oxygen 07/21/17 15:34 119 07/21/17 12:59 36.9 123 87/63 (71) 07/21/17 12:38 36.5 123 24 88/60 (69) 100 Nasal Cannula 2.0 Humidified Oxygen 07/21/17 12:00 Nasal Cannula 2.0 07/21/17 12:00 120 73/55 07/21/17 11:45 128 95/51 07/21/17 11:30 125 83/46 07/21/17 11:15 127 104/83 07/21/17 11:00 124 98/52 07/21/17 10:45 120 83/55 07/21/17 10:30 121 94/48 07/21/17 10:15 123 90/47 07/21/17 10:00 118 79/55 07/21/17 09:52 119 94/60 07/21/17 09:45 121 77/56 07/21/17 09:30 122 85/51 07/21/17 09:19 122 82/52 07/21/17 09:10 36.7 125 89/60 (70) 07/21/17 08:00 Nasal Cannula 2.0 07/21/17 07:02 36.7 122 14 100/60 (73) 97 Nasal Cannula 3.0 Humidified Oxygen 07/21/17 04:09 37.2 118 17 103/59 (74) 99 Humidified Air 3.0 07/21/17 04:00 Nasal Cannula 2.0 07/21/17 00:09 36.8 119 20 95/59 (71) 94 Humidified Air 3.0 07/20/17 23:59 Nasal Cannula 2.0 07/20/17 20:00 120 07/20/17 20:00 Nasal Cannula 2.0 07/20/17 18:55 37.0 121 20 122/86 (98) 94 Nasal Cannula 3.0 07/20/17 18:52 121 07/20/17 18:10 35.9 121 117/68 (84) 07/20/17 18:00 120 110/71 07/20/17 18:00 35.9 121 18 117/68 (84) 96 Nasal Cannula 2.0 07/20/17 17:45 116 108/68 Lab Results: Results Past 24 Hours Test 07/20/17 20:34 07/21/17 05:34 07/21/17 06:38 07/21/17 11:11 Range/Units Bedside Glucose 215 116 145 70-99 mg/dl White Blood Count 7.56 4.8-10.8 K/uL Red Blood Count 3.39 4.7-6.1 M/uL Hemoglobin 9.9 14.0-18.0 g/dL Hematocrit 31.0 42-52 % Mean Corpuscular Volume 91.4 80-100 fL Mean Corpuscular Hemoglobin 29.2 25-34 pg Mean Corpuscular Hemoglobin Concent 31.9 32-36 g/dl Platelet Count 78 130-400 K/uL Mean Platelet Volume 10.9 7.4-10.4 fL Neutrophils (%) (Auto) 77.3 % Lymphocytes (%) (Auto) 10.3 % Monocytes (%) (Auto) 8.5 % Eosinophils (%) (Auto) 2.8 % Basophils (%) (Auto) 0.4 % Neutrophils # (Auto) 5.85 1.4-6.5 K/uL Lymphocytes # (Auto) 0.78 1.2-3.4 K/uL Monocytes # (Auto) 0.64 0.11-0.59 K/uL Eosinophils # (Auto) 0.21 0-0.5 K/uL Basophils # (Auto) 0.03 0-0.2 K/uL RDW Standard Deviation 44.6 36.4-46.3 fL RDW Coefficient of Variation 13.3 11.5-14.5 % Immature Granulocyte % (Auto) 0.7 % Immature Granulocyte # (Auto) 0.05 0.00-0.02 K/uL Hypersegmented Polys 1+ Toxic Granulation 1+ Sodium Level 134 136-145 mmol/L Potassium Level 4.8 3.5-5.1 mmol/L Chloride Level 102 98-107 mmol/L Carbon Dioxide Level 28 21-32 mmol/L Anion Gap 4.0 3-11 mmol/L Blood Urea Nitrogen 47 7-18 mg/dl Creatinine 2.51 0.60-1.40 mg/dl Est Creatinine Clear Calc Drug Dose 28.6 ml/min Estimated GFR () 26.0 Estimated GFR (Non- 22.5 BUN/Creatinine Ratio 18.6 10-20 Random Glucose 134 70-99 mg/dl Calcium Level 8.1 8.5-10.1 mg/dl Magnesium Level 2.4 1.8-2.4 mg/dl Test 07/21/17 16:22 Range/Units Bedside Glucose 123 70-99 mg/dl
[2017-07-21] MEDS: TAMSULOSIN HCL 0.4 MG CAP PO SCH (20:52)
[2017-07-21] MEDS: SIMVASTATIN 40 MG TAB PO SCH (20:53)
[2017-07-21] MEDS: GABAPENTIN 300 MG CAP PO SCH (20:53)
[2017-07-21] MEDS: INSULIN GLARGINE SOLOSTAR 100 UNITS/ML 3 ML PEN SC SCH (20:55)
[2017-07-21] MEDS: FINASTERIDE 5 MG TAB PO SCH (20:57)
--- NOTE | 2017-07-22 00:08 | Progress Note ---
Post ICU Progress Note Date & Time Jul 21, 2017 at 23:07 Vital Signs Vital Signs Past 12 Hours Date Time Temp Pulse Resp B/P (MAP) Pulse Ox O2 Delivery O2 Flow Rate FiO2 07/21/17 20:00 Nasal Cannula 2.0 07/21/17 18:58 36.4 122 24 99/67 (78) 91 Nasal Cannula 2.0 Humidified Oxygen 07/21/17 16:00 Nasal Cannula 2.0 07/21/17 15:34 36.6 121 20 103/70 (81) 98 Nasal Cannula 2.0 Humidified Oxygen 07/21/17 15:34 119 07/21/17 12:59 36.9 123 87/63 (71) 07/21/17 12:38 36.5 123 24 88/60 (69) 100 Nasal Cannula 2.0 Humidified Oxygen 07/21/17 12:00 Nasal Cannula 2.0 07/21/17 12:00 120 73/55 07/21/17 11:45 128 95/51 07/21/17 11:30 125 83/46 07/21/17 11:15 127 104/83 Notes Mental Status: alert / awake (asleep upon entering, aroused easily), participated in evaluation, see Notes Nausea / Vomiting: adequately controlled Pain: adequately controlled Airway Patency, RR, SpO2: stable & adequate (remains on home 2L with adequate saturations) BP & HR: stable & adequate (remains mildly hypotensive and tachycardic) Christina Lopez is an 87yo male that presented on 07/16 with progressive weakness and fatigue; who was found to be in acute on chronic renal failure with a potassium of 6.9. His potassium was treated with HCO3, dextrose, insulin , and calcium gluconate. Pt was hypotensive with CT concerning for cystitis and UTI per urinalysis. Pt underwent placement of temporary HD catheter for treatment of his hyperkalemia the following morning; which was later removed upon Dr. Mckeon's placement of Perm Cath into the Right jugular on 07/18. Pt underwent several rounds of HD for electrolyte derangements without fluid removal. Pt continued to suffer from hypotension and tachycardia and was started on midodrine. Pt transferred from the ICU on 07/19. His vital signs remain unchanged since transfer upon my examination today. There are no new findings on physical exam. He was sleeping in bed when I entered. He had no complaints and only wanted a warm blanket. Per case management, pt was approved for M, W, F dialysis at [facility] but is now awaiting insurance approval for placement at [facility] or [facility]. Consider outpatient follow up in 1 to 2 weeks of discharge with: Dr. Kam Dickey, PCP Repeat imaging needed: N/A Follow up cultures: None Reviewed progress notes, labs, and inpatient medication list Continue current management Additional recommendations: None CCM will sign off at this time. Thank you for including us in the care of this pt; please feel free to reconsult as needed. Consults & Procedures Consultants: Nephrology Vascular surgery Critical care medicine Procedures: Right femoral temporary hemodialysis catheter: 07/17/2017 Over wire of right temporary hemodialysis catheter: 07/17/2017
[2017-07-22 04:36] VITALS: BP 120/79; PULSE 121; TEMP 36.7; O2SAT 95
[2017-07-22 07:32] VITALS: BP 131/85; PULSE 125; TEMP 36.9; O2SAT 96
[2017-07-22] MEDS: CLOPIDOGREL BISULFATE 75 MG TAB PO SCH (07:34)
[2017-07-22] MEDS: CALCIUM ACETATE 667MG GELCAP PO SCH ×3 (07:35→17:39)
[2017-07-22] MEDS: DOCUSATE SODIUM 100 MG CAP PO SCH ×2 (07:35→20:40)
[2017-07-22] MEDS: ASPIRIN 81 MG ECTAB PO SCH (07:35)
[2017-07-22] MEDS: ISOSORBIDE DINITRATE 5 MG TAB PO SCH ×3 (07:35→17:39)
[2017-07-22] MEDS: MIDODRINE 10 MG TAB PO SCH ×3 (07:35→17:43)
[2017-07-22] MEDS: POLYETHYLENE (MIRALAX) 17 GM PACK PO SCH ×2 (07:36)
[2017-07-22] MEDS: METOPROLOL TARTRATE 50 MG TAB PO SCH ×2 (07:36→20:40)
[2017-07-22] MEDS: FLUTICASONE/SALMETEROL 250/50 (ADVAIR) 14 PUFF/1 INHALER INH SCH ×2 (07:37→20:30)
[2017-07-22] MEDS: INSULIN ASPART 100 UNITS/ML 3 ML PEN SC SCH ×4 (07:40→20:45)
--- NOTE | 2017-07-22 09:28 | CARDIOLOGY CONSULTATION ---
DATE OF CONSULTATION: 07/22/2017 REFERRING PHYSICIAN: [facility] service. REASON FOR CONSULTATION: Atrial fibrillation. HISTORY OF PRESENT ILLNESS: This is an elderly 87-year-old gentleman who is well known to the cardiology service with a complex past medical history. The patient for a long time has had progressive renal failure. In the past, he has refused dialysis. He was admitted with end-stage renal failure and hyperkalemia. He had emergent dialysis performed. While in the ICU, he developed atrial fibrillation. The patient has known paroxysmal atrial fibrillation with a history of difficult to control heart rates. He was maintained on a beta kelly and digoxin. In the past, he had been anticoagulated, but developed hematuria and anticoagulation was discontinued. It appears that he is currently on dual antiplatelet therapy. The patient after admission developed atrial fibrillation. It appears either to be coarse atrial flutter or atrial fibrillation. Rates have been difficult to control. There have been difficulties maintaining the patient's blood pressure and he is currently on midodrine. There has been a reluctance to increase his beta kelly because of his low blood pressure especially with dialysis. There has also been reluctance to continue him on digoxin because of his end-stage kidney disease and is currently on a very small dose every other day. The patient has no current cardiac complaints. He denies chest pain or shortness of breath. He has had no symptoms of dizziness or lightheadedness. He denies tachycardia or heart palpitations. ALLERGIES: IODINE, WHICH CREATES HIVES AND HEPARIN WITH A PREVIOUS HISTORY OF HEPARIN ANTIBODIES AND SULFA ANTIBIOTICS, WHICH CREATE A RASH. PAST MEDICAL HISTORY: He has a long history of arteriosclerotic vascular disease. In 1995, he had any inferior wall myocardial infarction. He has had coronary interventions in the right coronary artery in 1999 and the left circumflex artery in 2006. Repeat coronary intervention in 2010 for high grade mid right coronary stenosis inside the prior stent and then again in 2010, he had acute stent occlusion in the setting of aspirin and Plavix withdrawal for lithotripsy and subsequent prostatectomy. The right coronary artery was unable to be reopened. At that time, the previous left circumflex stent was patent. His most recent echocardiogram estimates a left ventricular ejection fraction between 35% and 40%. That study was performed in April 2017. He is treated for paroxysmal atrial fibrillation as outlined in the history of chief complaint. He has a history of severe oxygen dependent COPD. He is treated for hypertension and dyslipidemia. He also has a history of medical noncompliance and noncompliance with diet. PER HIS ALLERGIES, HE DOES HAVE A HISTORY OF HEPARIN ALLERGIES FOR HEPARIN ANTIBODIES. SOCIAL HISTORY: The patient is a former smoker. He quit in 1990. He lives alone. FAMILY MEDICAL HISTORY: Noncontributory. REVIEW OF SYSTEMS: A 10-point review of systems is negative except for the history of chief complaint. PHYSICAL EXAMINATION: GENERAL: He is alert and oriented. CURRENT VITAL SIGNS: Blood pressure 130/85 on midodrine and pulse is irregular at 125 beats per minute. He is afebrile. HEENT: He is normocephalic. Pupils are equal and reactive to light. Extraocular muscles are intact bilaterally. NECK: The neck veins are flat. Carotids have good upstrokes bilaterally without bruits. Thyroid is nonpalpable. RESPIRATORY: Breath sounds equal bilaterally and clear to auscultation. CARDIOVASCULAR: Heart has irregular rhythm. Normal S1 and S2. No cardiac rubs or murmurs. GASTROINTESTINAL: Abdomen is obese, soft, and nontender without organomegaly. EXTREMITIES: Free of edema, digit clubbing, or cyanosis. NEUROLOGIC: Grossly intact. SKIN: Warm to touch. LYMPH NODES: Negative to palpation. LABORATORY DATA: Hemoglobin is 9.9, WBC count is 7.56, and platelet count is 78. INR is 1.0. IMPRESSION: 1. Atrial fibrillation/flutter with not well controlled heart rates. 2. Hypotension, requiring alpha agonist, midodrine. 3. History of heparin antibodies with current thrombocytopenia. 4. Ischemic heart disease with ischemic cardiomyopathy and estimated left ventricular ejection fraction around 35%-40%. 5. End-stage renal disease, requiring dialysis. RECOMMENDATIONS: This is a very difficult patient to manage due to his multiple medical problems. I think the best option at this time would be to continue the metoprolol even with the need for midodrine to maintain his blood pressure. I would discontinue the digoxin, which is difficult to manage under these circumstances. I will start amiodarone at a reduced loading dose until the digoxin has been washed out. Amiodarone will be started to try to better control his heart rates in addition to the metoprolol. In regard to anticoagulation, he does have a low platelet count. Heparin products have been stopped. I suspect that his thrombocytopenia is a combination of heparin antibodies and dialysis. I will stop his dual antiplatelet therapy. This includes Plavix and aspirin. If his platelet count starts to climb and his hemoglobin remains stable, I would start him on Eliquis at a reduced renal dose of 2.5 mg b.i.d. We will follow along with you during his hospital stay.
[2017-07-22] MEDS: ERTAPENEM IV 500 MG in SODIUM CHLORIDE 0.9% 50 ML IV SCH (10:17)
[2017-07-22 12:00] VITALS: BP 80/51; PULSE 122; TEMP 36.5; O2SAT 93
--- NOTE | 2017-07-22 12:23 | Pharmacy Progress Note ---
Glycemic Control Progress Note Date of Service Jul 22, 2017. Scope Glycemic Pharmacist consulted for glycemic control to write orders per [facility] inpatient glycemic control protocol. Objective Accuchecks BSG (last 24hrs): Test 07/21/17 16:22 07/21/17 20:11 07/22/17 06:29 07/22/17 11:22 Bedside Glucose 123 mg/dl (70-99) 174 mg/dl (70-99) 158 mg/dl (70-99) 141 mg/dl (70-99) HbA1c: Test 07/18/17 04:36 Hemoglobin A1c 7.2 % (4.5-5.6) H Recent Pertinent Medications The patient is currently receiving: * Basal insulin: Lantus SQ Q HS, dosing per the following scale: 0 units if less than 110; 5 units if 110-139; 10 units if 140 or greater * Correctional Insulin: Novolog Correction per scale ACHS Goal Range: Low 140 mg/dL - High 180 mg/dL Correction Factor: 30 mg/dL/unit * Prandial insulin: Per carb ratio of 1 unit per 10 grams CHO consumed Outpatient Anti-Diabetic Meds * Lantus 50 units SQ BID * HbA1c: 7.2% (07/18/17) Assessment & Plan ASSESSMENT: 07/22/17 * Glycemic control has been acceptable over the last 24 hours; BSGs ranged 123- 158 while tolerating a diet * Patient is requiring substantially less insulin that her outpt regimen provided. Only received 15-18 units per day the last 3 days with decent control. * Fasting BSG 158 this AM with 5 units of Lantus on board; may need to begin titrating up the basal insulin dose slightly * Post prandial BSGs well controlled with current CR and CF * No HD is ordered yet for today PLAN FOR INPATIENT GLYCEMIC CONTROL: * Changing Lantus SQ HS to : 5 units if BSG less than 110; 10 units if BSG 110 or greater * Continuing correction factor of 30 mg/dl/unit * Continuing carb ratio of 1 unit per 10 grams CHO consumed * Changing goal range to Low 120 mg/dL - High 160 mg/dL * Please note that the plan above was derived based on current level of insulin resistance and hospital stress. These recommendations are appropriate for inpatient admission only. Plan of care upon discharge will need to be reassessed to avoid potential outpatient hypo/hyperglycemia. Thank you.
[2017-07-22 15:10] VITALS: BP 103/71; PULSE 123; TEMP 36.6; O2SAT 95
[2017-07-22] MEDS: AMIODARONE 200 MG TAB PO SCH (17:39)
--- NOTE | 2017-07-22 18:03 | Progress Note ---
Internal Med Progress Note Date of Service: Jul 22, 2017. Provider Documentation: SUBJECTIVE: sitting on the chair comfortably says he is fine mostly nods his head for answering denies any pain eating ok afebrile OBJECTIVE: Vital Signs-as noted below Exam: General-alert and awake. not in distress ENT-Normal hearing Neck-no neck masses Lungs-Cta b/l no wheezing or crackles Heart-S1 and S2 heard tachycardia No murmurs Abdomen-Soft Bowel sounds present Non tender No distension Extremities-No edema No erythema Neuro-alert and awake moves extremities Lab data as noted below. ASSESSMENT & PLAN: : This is an 87-year-old male who presents with hyperkalemia and acute renal failure and chronic kidney disease stage IV. 1. Hyperkalemia. The patient received insulin, dextrose, calcium gluconate and bicarbonate in the ER . The patient has chronic kidney disease stage IV and need dialysis . Refused dialysis multiple times in the past but agreeable now. Initially was on bicarb drip. Currently getting dialysis.Stable now. Plan for detention HD. Await placement. Stable 2. Acute renal failure, chronic kidney disease stage IV. Dialysis as per nephrology. s/p tunnel cath.Stable 3. Chronic congestive heart failure with EF of 40%, holding diuretics . Getting dialysis.Will d/w Nephrology regarding restarting dialysis.Will monitor. Stable 4. CAd status post stent placement. beta kelly, nitrates and statin. Aspirin and Plavix stopped by cardio plan to start on eliquis. stable 5. Hypotension and tachycardia from dialysis? started on midodrine 6. Hypertension. Continue nitrates . Toprol-XL dose decreased for hypotension. will monitor 7 Chronic respiratory failure secondary to chronic obstructive pulmonary disease. Stable. On Advair and albuterol p.r.n. 8 Hx of A fib on Toprol xl initially held digoxin for renal failure.restarted digoxin at reduced dose.Toprol xl dose reduced for hypotension Not on anticoagulation secondary to hematuria while on Coumadin..HR elevated- will d/w cardiology Cardiology today stopped digoxin and started on amiodarone and plan to start on low dose eliquis when platelets improved 9. BPH on Flomax recently had urinary retention. f/u with urology. placed on chambers in ER and drained good amount of urine. 10. thrombocytopenia Hit studies positive. Await final studies. No heparin . f/u labs 11. UTI/Prostatis? ID recommends 10days of iv Invanz 12. Dvt px scds Disposition Monitor in tele pt/ot social service for d/c planning plan for placement code status full code for now Vital Signs: Date Time Temp Pulse Resp B/P (MAP) Pulse Ox O2 Delivery O2 Flow Rate FiO2 07/22/17 16:00 Nasal Cannula 2.0 07/22/17 15:10 36.6 123 22 103/71 (82) 95 Nasal Cannula 2.0 07/22/17 12:00 36.5 122 20 80/51 (61) 93 Nasal Cannula 2.0 07/22/17 12:00 Nasal Cannula 2.0 07/22/17 08:00 Nasal Cannula 2.0 07/22/17 07:32 36.9 125 24 131/85 (100) 96 Room Air 07/22/17 04:36 36.7 121 20 120/79 (93) 95 Nasal Cannula 2.0 07/22/17 04:00 Nasal Cannula 2.0 07/22/17 00:00 Nasal Cannula 2.0 07/21/17 23:09 37.0 122 22 90/57 (68) 93 Nasal Cannula 2.0 07/21/17 20:00 Nasal Cannula 2.0 07/21/17 18:58 36.4 122 24 99/67 (78) 91 Nasal Cannula 2.0 Humidified Oxygen Lab Results: Results Past 24 Hours Test 07/21/17 20:11 07/22/17 06:29 07/22/17 11:22 07/22/17 16:20 Range/Units Bedside Glucose 174 158 141 156 70-99 mg/dl
[2017-07-22 19:25] VITALS: BP 94/61; PULSE 123; TEMP 37.1; O2SAT 91
[2017-07-22] MEDS: TAMSULOSIN HCL 0.4 MG CAP PO SCH (20:40)
[2017-07-22] MEDS: SIMVASTATIN 40 MG TAB PO SCH (20:41)
[2017-07-22] MEDS: GABAPENTIN 300 MG CAP PO SCH (20:41)
[2017-07-22] MEDS: FINASTERIDE 5 MG TAB PO SCH (20:42)
[2017-07-22] MEDS: INSULIN GLARGINE SOLOSTAR 100 UNITS/ML 3 ML PEN SC SCH (20:44)
[2017-07-23] VITALS (23 sets, daily range): BP systolic 85–123; BP diastolic 47–102; PULSE 115–126; TEMP 36.6–37.2; O2SAT 90–99
[2017-07-23] MEDS: METOPROLOL TARTRATE 50 MG TAB PO SCH ×2 (07:51→21:50)
[2017-07-23] MEDS: CALCIUM ACETATE 667MG GELCAP PO SCH ×3 (07:52→16:58)
[2017-07-23] MEDS: DOCUSATE SODIUM 100 MG CAP PO SCH ×2 (07:52→21:49)
[2017-07-23] MEDS: MIDODRINE 10 MG TAB PO SCH ×3 (07:52→16:59)
[2017-07-23] MEDS: ISOSORBIDE DINITRATE 5 MG TAB PO SCH ×3 (07:52→16:58)
[2017-07-23] MEDS: AMIODARONE 200 MG TAB PO SCH ×3 (07:52→16:59)
[2017-07-23] MEDS: FLUTICASONE/SALMETEROL 250/50 (ADVAIR) 14 PUFF/1 INHALER INH SCH ×2 (07:53→21:49)
[2017-07-23] MEDS: POLYETHYLENE (MIRALAX) 17 GM PACK PO SCH ×2 (07:57)
[2017-07-23] MEDS: INSULIN ASPART 100 UNITS/ML 3 ML PEN SC SCH ×4 (07:57→21:53)
[2017-07-23 09:06] LABS: HEMATOCRIT 29.9 % (42-52); HEMOGLOBIN 9.4 g/dL (14.0-18.0); MEAN CELL VOLUME 93.1 fL (80-100); MEAN CORPUSCULAR HEMOGLOBIN 29.3 pg (25-34); MEAN CORPUSCULAR HGB CONC 31.4 g/dl (32-36); RED CELL DISTRIBUTION WIDTH CV 13.3 % (11.5-14.5); RED CELL DISTRIBUTION WIDTH SD 45.6 fL (36.4-46.3); WHITE BLOOD COUNT 8.08 K/uL (4.8-10.8)
[2017-07-23 09:15] LABS: PLATELET COUNT 85 K/uL (130-400)
--- NOTE | 2017-07-23 09:17 | PROGRESS NOTE ---
DATE: 07/23/2017 FOLLOWUP VISIT SUBJECTIVE: This is an 87-year-old male patient who presented with hyperkalemia, requiring emergent dialysis. He has had progressive renal failure in the past. In the past, he refused dialysis. He is currently receiving routine dialysis while in the hospital. He also has an ischemic cardiomyopathy with an estimated left ventricular ejection fraction of 35%-40%. He did have paroxysmal atrial fibrillation, but has been in persistent atrial fibrillation since admission. He has had high heart rates, which have been difficult to treat due to low blood pressure. Yesterday, I started him on amiodarone in addition to metoprolol. He was started on a fairly low dose of the amiodarone in regard to loading because he had been on digoxin previously. I wanted it to have some washout time. He continues to be in persistent atrial fibrillation with heart rates in the 120s. He has no new cardiac complaints. OBJECTIVE: VITAL SIGNS: Blood pressure is 115/100 and pulse is regular at 120 beats per minute. He is afebrile. HEENT: He is normocephalic. Pupils are equal and reactive to light. Extraocular muscles are intact bilaterally. NECK: The neck veins are flat. Carotids have good upstrokes bilaterally without bruits. Thyroid is nonpalpable. RESPIRATORY: Breath sounds are equal bilaterally and clear to auscultation. CARDIOVASCULAR: Heart has an irregular rhythm. Normal S1 and S2. No S3 or S4. No cardiac rubs or murmurs. GASTROINTESTINAL: Abdomen is soft and nontender without organomegaly. EXTREMITIES: Free of edema, digit clubbing, or cyanosis. NEUROLOGIC: Grossly intact. SKIN: Warm to touch. LYMPH NODES: Negative to palpation. IMPRESSION: 1. Persistent atrial fibrillation with rapid ventricular response. 2. Hypotension, requiring an alpha agonist. 3. Heparin-induced antibodies and thrombocytopenia. 4. Ischemic cardiomyopathy with an estimated left ventricular ejection fraction of 35%-40%. 5. End-stage renal disease, requiring dialysis. RECOMMENDATIONS: The patient had no labs on the chart today, so I ordered a CBC with differential, BMP and magnesium levels. Also, I have noted that the patient is receiving midodrine, which is an alpha agonist in combination with Flomax, which is an alpha antagonist. I think these medications are most likely counteracting each other and I would discontinue the Flomax, so that we can maintain his blood pressure. I have increased his amiodarone to full loading of 400 mg t.i.d. I suspect if we discontinue his Flomax; however, we may be able to increase his beta kelly. If his platelet count is on the rebound, as outlined in my consult, we may want to start Eliquis at a reduced dose of 2.5 mg b.i.d.
[2017-07-23 09:29] LABS: CALCIUM 8.3 mg/dl (8.5-10.1); CREATININE 2.84 mg/dl (0.60-1.40); POTASSIUM 4.6 mmol/L (3.5-5.1)
[2017-07-23 09:39] LABS: BASO % 0.4 %; BASO ABS # 0.03 K/uL (0-0.2); EOS % 3.1 %; EOS ABS # 0.25 K/uL (0-0.5); IG# 0.04 K/uL (0.00-0.02); LYMPH % 7.1 %; LYMPH ABS # 0.57 K/uL (1.2-3.4); MONO % 5.8 %; MONO ABS # 0.47 K/uL (0.11-0.59); NEUT % 83.1 %; NEUT ABS # 6.72 K/uL (1.4-6.5)
[2017-07-23] MEDS ORDERED: EPOETIN ALFA 10,000 UNITS/ML VIAL IV. ONE (10:00)
--- NOTE | 2017-07-23 11:53 | Pharmacy Progress Note ---
Glycemic Control Progress Note Date of Service Jul 23, 2017. Scope Glycemic Pharmacist consulted for glycemic control to write orders per [facility] inpatient glycemic control protocol. Objective Accuchecks BSG (last 24hrs): Test 07/22/17 16:20 07/22/17 20:38 07/23/17 06:29 07/23/17 08:48 Bedside Glucose 156 mg/dl (70-99) 161 mg/dl (70-99) 156 mg/dl (70-99) Random Glucose 169 mg/dl (70-99) Test 07/23/17 11:23 Bedside Glucose 124 mg/dl (70-99) HbA1c: Test 07/18/17 04:36 Hemoglobin A1c 7.2 % (4.5-5.6) H Recent Pertinent Medications The patient is currently receiving: * Basal insulin: Lantus SQ Q HS, dosing per the following scale: 5 units if less than 110; 10 units if 110 or greater * Correctional Insulin: Novolog Correction per scale ACHS Goal Range: Low 140 mg/dL - High 180 mg/dL Correction Factor: 30 mg/dL/unit * Prandial insulin: Per carb ratio of 1 unit per 10 grams CHO consumed Outpatient Anti-Diabetic Meds * Lantus 50 units SQ BID * HbA1c: 7.2% (07/18/17) Assessment & Plan ASSESSMENT: 07/22/17 * Glycemic control has been acceptable over the last 24 hours; BSGs ranged 123- 158 while tolerating a diet * Patient is requiring substantially less insulin that her outpt regimen provided. Only received 15-18 units per day the last 3 days with decent control. * Fasting BSG 158 this AM with 5 units of Lantus on board; may need to begin titrating up the basal insulin dose slightly * Post prandial BSGs well controlled with current CR and CF * No HD is ordered yet for today 07/23/17 * BSGs well controlled over the past 24 hours; BSGs ranged 141-161 * Fasting BSG slightly elevated today, yet acceptable for HD patient given potential for BSG lability * Post-prandial BSGs at goal consistently w/ current CR PLAN FOR INPATIENT GLYCEMIC CONTROL: * Continue Lantus SQ HS : 5 units if BSG less than 110; 10 units if BSG 110 or greater * Continuing correction factor of 30 mg/dl/unit * Continuing carb ratio of 1 unit per 10 grams CHO consumed * Changing goal range to Low 120 mg/dL - High 160 mg/dL RECOMMENDATIONS FOR DISCHARGE: * Patient is requiring substantially less insulin at this time * Outpatient dose of Lantus will require reduction as she is currently only requiring ~10 units of Lantus per day * Please note that the plan above was derived based on current level of insulin resistance and hospital stress. These recommendations are appropriate for inpatient admission only. Plan of care upon discharge will need to be reassessed to avoid potential outpatient hypo/hyperglycemia. Thank you.
--- NOTE | 2017-07-23 13:22 | Progress Note ---
Internal Med Progress Note Date of Service: Jul 23, 2017. Provider Documentation: SUBJECTIVE: getting dialysis some what hungry denies any pain or nausea denies any complaints OBJECTIVE: Vital Signs-as noted below Exam: General-alert and awake. not in distress ENT-Normal hearing Neck-no neck masses Lungs-Cta b/l no wheezing or crackles Heart-S1 and S2 heard tachycardia No murmurs Abdomen-Soft Bowel sounds present Non tender No distension Extremities-No edema No erythema Neuro-alert and awake moves extremities Lab data as noted below. ASSESSMENT & PLAN: : This is an 87-year-old male who presents with hyperkalemia and acute renal failure and chronic kidney disease stage IV. 1. Hyperkalemia. The patient received insulin, dextrose, calcium gluconate and bicarbonate in the ER . The patient has chronic kidney disease stage IV and need dialysis . Refused dialysis multiple times in the past but agreeable now. Initially was on bicarb drip. Currently getting dialysis. Plan for middle or intermediate [employer] [facility] HD. Await placement. Stable 2. Acute renal failure, chronic kidney disease stage IV. Dialysis as per nephrology. s/p tunnel cath.Stable 3. Chronic congestive heart failure with EF of 40%, holding diuretics . Getting dialysis.Will d/w Nephrology regarding restarting dialysis.Will monitor. Stable 4. CAd status post stent placement. beta kelly, nitrates and statin. Aspirin and Plavix stopped by cardio plan to start on eliquis. stable 5. Hypotension and tachycardia from dialysis? started on midodrine. Flomax stopped. will monitor 6. Hypertension. Continue nitrates . Toprol-XL dose decreased for hypotension. will monitor 7 Chronic respiratory failure secondary to chronic obstructive pulmonary disease. Stable. On Advair and albuterol p.r.n. 8 Hx of A fib on Toprol xl initially held digoxin for renal failure.restarted digoxin at reduced dose.Toprol xl dose reduced for hypotension Not on anticoagulation secondary to hematuria while on Coumadin..HR elevated- will d/w cardiology Cardiology today stopped digoxin and started on amiodarone and plan to start on low dose eliquis when platelets improved. 9. BPH on Flomax recently had urinary retention. f/u with urology. placed on chambers in ER and drained good amount of urine.Flomax stopped as patient started on midodrine for hypotension. 10. thrombocytopenia Hit studies positive. Await final studies. No heparin . f/u labs 11. UTI/Prostatis? ID recommends 10days of iv Invanz 12. Dvt px scds Disposition Monitor in tele pt/ot social service for d/c planning plan for placement code status full code for now Vital Signs: Date Time Temp Pulse Resp B/P (MAP) Pulse Ox O2 Delivery O2 Flow Rate FiO2 07/23/17 12:52 36.6 119 110/69 (83) 07/23/17 12:15 121 98/59 07/23/17 12:00 121 114/56 07/23/17 11:45 121 91/71 07/23/17 11:30 122 120/97 07/23/17 11:15 121 122/65 07/23/17 11:00 117 99/56 07/23/17 10:45 120 85/50 07/23/17 10:30 122 95/57 07/23/17 10:15 122 94/48 07/23/17 10:00 124 94/57 07/23/17 09:45 123 100/47 07/23/17 09:35 121 93/53 07/23/17 09:25 36.7 124 92/73 (79) 07/23/17 08:15 109/77 (88) 07/23/17 08:00 Nasal Cannula 3.0 07/23/17 07:00 36.9 123 20 123/102 (109) 99 Nasal Cannula 4.0 Humidified Oxygen 07/23/17 04:14 37.1 125 24 103/74 (84) 94 07/23/17 04:00 95 Nasal Cannula 3.0 07/23/17 00:08 36.8 123 22 105/75 (85) 98 07/23/17 00:00 95 Nasal Cannula 3.0 07/22/17 20:00 Nasal Cannula 3.0 07/22/17 19:25 37.1 123 21 94/61 (72) 91 Nasal Cannula 3.0 07/22/17 16:00 Nasal Cannula 2.0 07/22/17 15:10 36.6 123 22 103/71 (82) 95 Nasal Cannula 2.0 Lab Results: Results Past 24 Hours Test 07/22/17 16:20 07/22/17 20:38 07/23/17 06:29 07/23/17 08:48 Range/Units Bedside Glucose 156 161 156 70-99 mg/dl White Blood Count 8.08 4.8-10.8 K/uL Red Blood Count 3.21 4.7-6.1 M/uL Hemoglobin 9.4 14.0-18.0 g/dL Hematocrit 29.9 42-52 % Mean Corpuscular Volume 93.1 80-100 fL Mean Corpuscular Hemoglobin 29.3 25-34 pg Mean Corpuscular Hemoglobin Concent 31.4 32-36 g/dl Platelet Count 85 130-400 K/uL Mean Platelet Volume 11.0 7.4-10.4 fL Neutrophils (%) (Auto) 83.1 % Lymphocytes (%) (Auto) 7.1 % Monocytes (%) (Auto) 5.8 % Eosinophils (%) (Auto) 3.1 % Basophils (%) (Auto) 0.4 % Neutrophils # (Auto) 6.72 1.4-6.5 K/uL Lymphocytes # (Auto) 0.57 1.2-3.4 K/uL Monocytes # (Auto) 0.47 0.11-0.59 K/uL Eosinophils # (Auto) 0.25 0-0.5 K/uL Basophils # (Auto) 0.03 0-0.2 K/uL RDW Standard Deviation 45.6 36.4-46.3 fL RDW Coefficient of Variation 13.3 11.5-14.5 % Immature Granulocyte % (Auto) 0.5 % Immature Granulocyte # (Auto) 0.04 0.00-0.02 K/uL Sodium Level 137 136-145 mmol/L Potassium Level 4.6 3.5-5.1 mmol/L Chloride Level 102 98-107 mmol/L Carbon Dioxide Level 31 21-32 mmol/L Anion Gap 4.0 3-11 mmol/L Blood Urea Nitrogen 40 7-18 mg/dl Creatinine 2.84 0.60-1.40 mg/dl Est Creatinine Clear Calc Drug Dose 25.4 ml/min Estimated GFR () 22.4 Estimated GFR (Non- 19.3 BUN/Creatinine Ratio 14.1 10-20 Random Glucose 169 70-99 mg/dl Calcium Level 8.3 8.5-10.1 mg/dl Magnesium Level 2.2 1.8-2.4 mg/dl Test 07/23/17 11:23 Range/Units Bedside Glucose 124 70-99 mg/dl
[2017-07-23] MEDS: ERTAPENEM IV 500 MG in SODIUM CHLORIDE 0.9% 50 ML IV SCH (13:46)
--- NOTE | 2017-07-23 15:36 | Nephrology Progress Note ---
Nephrology Progress Note Date of Service: Jul 23, 2017. Subjective no c/o except fatigue; HD stopped 20 min early today b/c set clotted off despite NS flushes Objective Date Time Temp Pulse Resp B/P (MAP) Pulse Ox O2 Delivery O2 Flow Rate FiO2 07/23/17 15:04 36.9 124 12 92/50 (64) 90 Nasal Cannula 4.0 07/23/17 12:52 36.6 119 110/69 (83) 07/23/17 12:15 121 98/59 07/23/17 12:00 Nasal Cannula 3.0 07/23/17 12:00 121 114/56 07/23/17 11:45 121 91/71 07/23/17 11:30 122 120/97 07/23/17 11:15 121 122/65 07/23/17 11:00 117 99/56 07/23/17 10:45 120 85/50 07/23/17 10:30 122 95/57 07/23/17 10:15 122 94/48 07/23/17 10:00 124 94/57 07/23/17 09:45 123 100/47 07/23/17 09:35 121 93/53 07/23/17 09:25 36.7 124 92/73 (79) 07/23/17 08:15 109/77 (88) 07/23/17 08:00 Nasal Cannula 3.0 07/23/17 07:00 36.9 123 20 123/102 (109) 99 Nasal Cannula 4.0 Humidified Oxygen 07/23/17 04:14 37.1 125 24 103/74 (84) 94 07/23/17 04:00 95 Nasal Cannula 3.0 07/23/17 00:08 36.8 123 22 105/75 (85) 98 07/23/17 00:00 95 Nasal Cannula 3.0 07/22/17 20:00 Nasal Cannula 3.0 07/22/17 19:25 37.1 123 21 94/61 (72) 91 Nasal Cannula 3.0 07/22/17 16:00 Nasal Cannula 2.0 Physical Exam: General-aaox3, on 02nc Eyes-no scleral icterus ENT-mmm Neck-supple Lungs-very diminished posteriorly Heart-tachycardic 110s Abdomen-bs+ s/nt/nd Extremities-no c/c/e Neuro-nonfocal Current Inpatient Medications Medications (Trade) Dose Ordered Sig/Ronak Route Start Time Stop Time Status Last Admin Dose Admin Hydromorphone HCl (Dilaudid Tab) 0.5 mg Q4H PRN PO 07/16/17 21:45 07/30/17 21:44 07/19/17 04:05 0.5 MG Finasteride (Proscar Tab) 5 mg HS PO 07/17/17 21:00 08/16/17 20:59 07/22/17 20:42 5 MG Salmeterol Xinafoate/ Fluticasone (Advair Diskus 250/50 Inh) 1 puff BID INH 07/17/17 09:00 08/16/17 08:59 07/23/17 07:53 1 PUFF Gabapentin (Neurontin Cap) 300 mg HS PO 07/17/17 21:00 08/16/17 20:59 07/22/17 20:41 300 MG Isosorbide Dinitrate (Isordil Tab) 5 mg TID@0700,1200,1700 PO 07/17/17 07:00 08/16/17 06:59 07/23/17 13:47 5 MG Nitroglycerin (Nitrostat Tab) 0.4 mg UD PRN UT 07/16/17 21:45 08/15/17 21:44 Simvastatin (Zocor Tab) 40 mg QPM PO 07/17/17 21:00 08/16/17 20:59 07/22/17 20:41 40 MG Albuterol (Ventolin Hfa Inhaler) 2 puffs Q4H PRN INH 07/16/17 21:45 08/15/17 21:44 Miscellaneous Information (Consult Glycemic Management Pharmacy) 1 ea UD PRN N/A 07/17/17 10:40 08/16/17 10:39 Insulin Aspart (novoLOG ASPART) SLIDING SCALE ACHS SC 07/18/17 16:45 08/17/17 16:44 07/23/17 07:57 4 UNITS Al Hydroxide/Mg Hydroxide (Maalox Susp) 15 ml Q6H PRN PO 07/18/17 20:45 08/17/17 20:44 Docusate Sodium (coLACE CAP) 100 mg BID PO 07/19/17 09:00 1/19/18 08:59 07/23/17 07:52 100 MG Polyethylene (Miralax Powder Packet) 17 gm DAILY PO 07/19/17 09:00 08/18/17 08:59 07/21/17 07:55 17 GM Calcium Acetate (Phoslo Cap) 667 mg TIDM PO 07/19/17 07:15 08/18/17 07:14 07/23/17 13:46 667 MG Ertapenem 500 mg/ Sodium Chloride 55 ml @ 110 mls/hr DAILY@1000 IV 07/19/17 10:30 07/29/17 10:29 07/23/17 13:46 110 MLS/HR Metoprolol Tartrate (Lopressor Tab) 50 mg BID PO 07/20/17 09:00 08/19/17 08:59 07/23/17 07:51 50 MG Ondansetron HCl (Zofran Inj) 4 mg Q6H PRN IV 07/19/17 17:00 08/18/17 16:59 07/19/17 17:46 4 MG Polyethylene (Miralax Powder Packet) 17 gm DAILY PO 07/20/17 09:00 08/19/17 08:59 Midodrine (Proamatine Tab) 10 mg TID@08,12,17 PO 07/21/17 12:00 08/18/17 11:59 07/23/17 13:46 10 MG Insulin Glargine (Lantus Solostar Pen) SEE PROTOCOL T... QPM SC 07/22/17 21:00 08/21/17 20:59 07/22/17 20:44 10 UNITS Amiodarone HCl (Cordarone Tab) 400 mg TIDM PO 07/23/17 11:30 08/21/17 16:44 07/23/17 13:46 400 MG Last 24 Hours Test 07/22/17 16:20 07/22/17 20:38 07/23/17 06:29 07/23/17 08:48 Bedside Glucose 156 mg/dl 161 mg/dl 156 mg/dl White Blood Count 8.08 K/uL Red Blood Count 3.21 M/uL Hemoglobin 9.4 g/dL Hematocrit 29.9 % Mean Corpuscular Volume 93.1 fL Mean Corpuscular Hemoglobin 29.3 pg Mean Corpuscular Hemoglobin Concent 31.4 g/dl Platelet Count 85 K/uL Mean Platelet Volume 11.0 fL Neutrophils (%) (Auto) 83.1 % Lymphocytes (%) (Auto) 7.1 % Monocytes (%) (Auto) 5.8 % Eosinophils (%) (Auto) 3.1 % Basophils (%) (Auto) 0.4 % Neutrophils # (Auto) 6.72 K/uL Lymphocytes # (Auto) 0.57 K/uL Monocytes # (Auto) 0.47 K/uL Eosinophils # (Auto) 0.25 K/uL Basophils # (Auto) 0.03 K/uL RDW Standard Deviation 45.6 fL RDW Coefficient of Variation 13.3 % Immature Granulocyte % (Auto) 0.5 % Immature Granulocyte # (Auto) 0.04 K/uL Sodium Level 137 mmol/L Potassium Level 4.6 mmol/L Chloride Level 102 mmol/L Carbon Dioxide Level 31 mmol/L Anion Gap 4.0 mmol/L Blood Urea Nitrogen 40 mg/dl Creatinine 2.84 mg/dl Est Creatinine Clear Calc Drug Dose 25.4 ml/min Estimated GFR () 22.4 Estimated GFR (Non- 19.3 BUN/Creatinine Ratio 14.1 Random Glucose 169 mg/dl Calcium Level 8.3 mg/dl Magnesium Level 2.2 mg/dl Test 07/23/17 11:23 Bedside Glucose 124 mg/dl Assessment & Plan 87 yo male with ckd stage 5 who presented with hyperkalemia and hypermagnesemia and uremic symptoms. CKD stage 5/ESRD - Next HD tentatively 07/26, Wed >> today he had planned HD 3 hours (only got 2.5 h), 300/600, no uf. 2k bath. hypotension and marked tachycardia -not removing any fluid. on midodrine to help with bp and attempting to slow down heart rate w/ BB. cardiology input appreciated do not feel tachycardia is physiological in nature. on dig and metoprolol. 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 Care coordinated w/ Dr. Mendoza
[2017-07-23] MEDS: GABAPENTIN 300 MG CAP PO SCH (21:50)
[2017-07-23] MEDS: FINASTERIDE 5 MG TAB PO SCH (21:50)
[2017-07-23] MEDS: SIMVASTATIN 40 MG TAB PO SCH (21:50)
[2017-07-23] MEDS: INSULIN GLARGINE SOLOSTAR 100 UNITS/ML 3 ML PEN SC SCH (21:57)
[2017-07-24 03:26] VITALS: BP 117/77; PULSE 113; TEMP 36.7; O2SAT 98
[2017-07-24 08:02] VITALS: BP 133/87; PULSE 121; TEMP 36.6; O2SAT 97
[2017-07-24] MEDS: MIDODRINE 10 MG TAB PO SCH ×2 (08:25→17:10)
[2017-07-24] MEDS: FLUTICASONE/SALMETEROL 250/50 (ADVAIR) 14 PUFF/1 INHALER INH SCH ×2 (08:26→20:14)
[2017-07-24] MEDS: DOCUSATE SODIUM 100 MG CAP PO SCH ×2 (08:26→20:15)
[2017-07-24] MEDS: CALCIUM ACETATE 667MG GELCAP PO SCH ×3 (08:26→17:09)
[2017-07-24] MEDS: METOPROLOL TARTRATE 50 MG TAB PO SCH ×3 (08:27→20:16)
[2017-07-24] MEDS: AMIODARONE 200 MG TAB PO SCH ×3 (08:27→17:09)
[2017-07-24] MEDS: ISOSORBIDE DINITRATE 5 MG TAB PO SCH (08:27)
[2017-07-24] MEDS: INSULIN ASPART 100 UNITS/ML 3 ML PEN SC SCH ×4 (08:30→20:19)
[2017-07-24] MEDS: POLYETHYLENE (MIRALAX) 17 GM PACK PO SCH ×2 (08:31)
[2017-07-24] MEDS ORDERED: MIDODRINE 2.5 MG TAB PO SCH (12:00)
[2017-07-24 12:01] VITALS: BP 116/86; PULSE 116; TEMP 36.6; O2SAT 92
[2017-07-24] MEDS: ERTAPENEM IV 500 MG in SODIUM CHLORIDE 0.9% 50 ML IV SCH (12:14)
--- NOTE | 2017-07-24 12:46 | PROGRESS NOTE ---
DATE: 07/24/2017 FOLLOWUP VISIT SUBJECTIVE: This is an 87-year-old male patient who presented with hyperkalemia requiring emergent dialysis. He has had a history of progressive renal failure and refused dialysis in the past. He is now receiving dialysis while in the hospital. He has an ischemic cardiomyopathy with an estimated left ventricular ejection fraction of 35%-40%. He has had a history of paroxysmal atrial arrhythmias and has had persistent atrial fibrillation since admission with high heart rates. He has been started on amiodarone as well as metoprolol to try and control his heart rates. We have had some improvement, but his heart rates remain in the 110s to 1-teens range. He has no new cardiac complaints today. OBJECTIVE: GENERAL: He is alert and oriented in no acute distress. VITAL SIGNS: Blood pressure is 130/70. Pulse is irregular at 112 beats per minute. He is afebrile. HEENT: Normocephalic. Pupils are equal and reactive to light. Extraocular muscles are intact bilaterally. NECK: The neck veins are flat. Carotids have good upstrokes bilaterally without bruits. Thyroid is nonpalpable. RESPIRATORY: Breath sounds equal bilaterally and clear to auscultation. CARDIOVASCULAR: Heart has a regular rhythm. Normal S1, S2. No S3, S4. No cardiac rubs or murmurs. GASTROINTESTINAL: Abdomen is soft, nontender without organomegaly. EXTREMITIES: Free of edema, digit clubbing, or cyanosis. NEUROLOGIC: Grossly intact. SKIN: Warm to touch. LYMPH NODES: Negative to palpation. IMPRESSION: 1. Persistent atrial fibrillation with rapid ventricular response. 2. Hypotension, which has improved. 3. Heparin-induced antibodies with thrombocytopenia. 4. Ischemic cardiomyopathy with an estimated left ventricular ejection fraction of 35%-40%. 5. End-stage renal disease requiring dialysis. RECOMMENDATIONS: I will increase the patient's metoprolol to 50 mg t.i.d. to better control his heart rates with the atrial fibrillation. I will also continue the amiodarone. Since his blood pressure is improving, I will reduce the midodrine dose to 5 mg t.i.d. and hopefully, we will be able to discontinue this medicine eventually. The patient's platelet count has slowly started to improve. I will start Eliquis at a reduced dose of 2.5 mg b.i.d. We will have to monitor his hemoglobin and continue to monitor his platelets. He has now been off of dual antiplatelet therapy for 48 hours.
[2017-07-24 15:00] VITALS: BP 111/69; PULSE 118; TEMP 36.6; O2SAT 97
--- NOTE | 2017-07-24 18:52 | Progress Note ---
Internal Med Progress Note Date of Service: Jul 24, 2017. Provider Documentation: SUBJECTIVE: resting comfortably denies any complaints slept ok afebrile no sob or nausea moved bowels early in the morning OBJECTIVE: Vital Signs-as noted below Exam: General-alert and awake. not in distress ENT-Normal hearing Neck-no neck masses Lungs-Cta b/l no wheezing or crackles Heart-S1 and S2 heard tachycardia No murmurs Abdomen-Soft Bowel sounds present Non tender No distension Extremities-No edema No erythema Neuro-alert and awake moves extremities Lab data as noted below. ASSESSMENT & PLAN: : This is an 87-year-old male who presents with hyperkalemia and acute renal failure and chronic kidney disease stage IV.Intialted on HD. s/p tunnel Cath. on IV Invanz#6 for possible uti / prostatitis for total 10days as per ID. On midodrine for hypotension( since starting HD). . But having tachycardia. Cardiology stopped digoxin. Started on amiodarone changed Toprol xl to Lopressor 50mg tid.. Stopped Flomax as it contradicts midodrine.Reduced dose of midodrine( may eventually stop if hypotension improves) Continue to Monitor.Also aspirin and Plavix stopped( For low platelets) and started on eliquis by cardiology for a fib. 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 heparin stopped. Plan for placement whenever bed available. 1. Hyperkalemia. The patient received insulin, dextrose, calcium gluconate and bicarbonate in the ER . The patient has chronic kidney disease stage IV and need dialysis . Refused dialysis multiple times in the past but agreeable now. Initially was on bicarb drip. Currently getting dialysis. Plan for half-way HD. Awaiting placement. Stable 2. Acute renal failure, chronic kidney disease stage IV. Dialysis as per nephrology. s/p tunnel cath.Stable 3. Chronic congestive heart failure with EF of 40%, holding diuretics . Getting dialysis.Will d/w Nephrology regarding restarting dialysis.Will monitor. Stable 4. CAd status post stent placement. beta kelly, nitrates and statin. Aspirin and Plavix stopped by cardio plan to start on eliquis. stable 5. Hypotension and tachycardia from dialysis? started on midodrine. Flomax stopped. will monitor 6. Hypertension. Currently on Lopressor. will monitor 7 Chronic respiratory failure secondary to chronic obstructive pulmonary disease. Stable. On Advair and albuterol p.r.n. 8 Hx of A fib initially held digoxin for renal failure.restarted digoxin at reduced dose.Toprol xl dose reduced for hypotension Not on anticoagulation secondary to hematuria while on Coumadin..HR elevated-Cardiology stopped digoxin and started on amiodarone and plan to start on low dose eliquis when platelets improved. Toprol changed to Lopressor tid. Started on eliquis today 9. BPH on Flomax recently had urinary retention. f/u with urology. placed on chambers in ER and drained good amount of urine.Flomax stopped as patient started on midodrine for hypotension.Chambers removed. Needs urology f/u 10. thrombocytopenia Hit studies positive. Await final studies?. No heparin . f/u labs 11. UTI/Prostatis? ID recommends 10days of iv Invanz# 6 12. Dvt px scds Disposition Monitor in tele pt/ot social service for d/c planning plan for placement when bed available if ok with cardio code status full code for now Vital Signs: Date Time Temp Pulse Resp B/P (MAP) Pulse Ox O2 Delivery O2 Flow Rate FiO2 07/24/17 16:00 Nasal Cannula 3.0 07/24/17 15:00 36.6 118 24 111/69 (83) 97 Nasal Cannula 4.0 07/24/17 12:01 36.6 116 18 116/86 (96) 92 Nasal Cannula 4.0 07/24/17 12:00 Nasal Cannula 3.0 07/24/17 08:02 36.6 121 20 133/87 (102) 97 Nasal Cannula 4.0 07/24/17 08:00 Nasal Cannula 3.0 07/24/17 04:00 Nasal Cannula 3.0 07/24/17 03:26 36.7 113 21 117/77 (90) 98 Nasal Cannula 4.5 Humidified Oxygen 07/24/17 00:00 Nasal Cannula 3.0 07/23/17 23:12 37.2 115 25 100/77 (85) 96 Nasal Cannula 4.5 Humidified Oxygen 07/23/17 20:00 Nasal Cannula 3.0 07/23/17 18:58 36.6 126 28 116/68 (84) 94 Nasal Cannula 4.0 Lab Results: Results Past 24 Hours Test 07/23/17 20:38 07/24/17 06:10 07/24/17 11:12 07/24/17 15:49 Range/Units Bedside Glucose 166 156 160 130 70-99 mg/dl
[2017-07-24 19:39] VITALS: BP 102/59; PULSE 113; TEMP 37.2; O2SAT 97
[2017-07-24] MEDS: APIXABAN 2.5 MG TAB PO SCH (20:15)
[2017-07-24] MEDS: SIMVASTATIN 40 MG TAB PO SCH (20:17)
[2017-07-24] MEDS: FINASTERIDE 5 MG TAB PO SCH (20:17)
[2017-07-24] MEDS: GABAPENTIN 300 MG CAP PO SCH (20:17)
[2017-07-24] MEDS: INSULIN GLARGINE SOLOSTAR 100 UNITS/ML 3 ML PEN SC SCH (20:21)
[2017-07-25] VITALS (8 sets, daily range): BP systolic 92–118; BP diastolic 59–76; PULSE 70–111; TEMP 36.8–37.1; O2SAT 90–97
[2017-07-25] MEDS: FLUTICASONE/SALMETEROL 250/50 (ADVAIR) 14 PUFF/1 INHALER INH SCH ×2 (07:46→21:51)
[2017-07-25] MEDS: APIXABAN 2.5 MG TAB PO SCH ×2 (07:47→21:50)
[2017-07-25] MEDS: AMIODARONE 200 MG TAB PO SCH ×3 (07:47→17:05)
[2017-07-25] MEDS: METOPROLOL TARTRATE 50 MG TAB PO SCH ×3 (07:47→21:51)
[2017-07-25] MEDS: CALCIUM ACETATE 667MG GELCAP PO SCH ×3 (07:47→17:06)
[2017-07-25] MEDS: MIDODRINE 10 MG TAB PO SCH ×3 (07:48→17:07)
[2017-07-25] MEDS: DOCUSATE SODIUM 100 MG CAP PO SCH ×2 (07:48→21:50)
[2017-07-25] MEDS: INSULIN ASPART 100 UNITS/ML 3 ML PEN SC SCH ×4 (07:55→21:47)
[2017-07-25] MEDS: POLYETHYLENE (MIRALAX) 17 GM PACK PO SCH (07:55)
[2017-07-25 09:05] LABS: HEMATOCRIT 30.2 % (42-52); HEMOGLOBIN 9.4 g/dL (14.0-18.0); MEAN CELL VOLUME 94.7 fL (80-100); MEAN CORPUSCULAR HEMOGLOBIN 29.5 pg (25-34); MEAN CORPUSCULAR HGB CONC 31.1 g/dl (32-36); RED CELL DISTRIBUTION WIDTH CV 13.9 % (11.5-14.5); RED CELL DISTRIBUTION WIDTH SD 48.2 fL (36.4-46.3); WHITE BLOOD COUNT 8.47 K/uL (4.8-10.8)
[2017-07-25 09:07] LABS: MEAN PLATELET VOLUME 11.4 fL (7.4-10.4); PLATELET COUNT 95 K/uL (130-400)
[2017-07-25 09:31] LABS: CALCIUM 8.4 mg/dl (8.5-10.1); CREATININE 3.03 mg/dl (0.60-1.40); POTASSIUM 4.7 mmol/L (3.5-5.1)
--- NOTE | 2017-07-25 09:52 | Progress Note ---
Medicine Progress Note Date & Time of Visit: Jul 25, 2017 at 09:17. Subjective 87 yo M who presents with hyperkalemia and acute on chronic renal failure. He was admitted to the ICU and underwent temporizing measures until a HD catheter could be placed and has been receiving dialysis as inpatient since that time. He has afib w RVR and hypotension. Midodrine was added to help keep his BP up while dialyzing and removing ultrafiltrate. As his BP is improving this is being weaned down. Additionally Cardiology has been titrating his Metoprolol up to 50mg PO TID yesterday to help control his heart rate which was in the 90s this morning down from the one-teens yesterday. He is otherwise reporting no issues with pain, discomfort from palpitations, shortness of breath or other problems this morning. He is tolerating PO and reports having BMs. He denies getting up and ambulating and states that no one has been in to help him. Last PT visit was 07/21 and pt has declined them. I re-engaged with CM this morning to help with this and figuring out placement which will need to include inpt rehab services. Objective Last 8 Hrs Date Time Temp Pulse Resp B/P (MAP) Pulse Ox O2 Delivery O2 Flow Rate FiO2 07/25/17 08:41 36.8 110 16 108/72 (84) 95 07/25/17 08:00 Nasal Cannula 3.0 07/25/17 04:00 Nasal Cannula 3.0 07/25/17 03:17 36.8 90 22 113/68 (83) 93 Nasal Cannula 4.5 Physical Exam: GEN: WNWD, in no acute distress, alert and appropriate once awoken from his nap. HEENT: NC/AT, pupils are equal and round bilaterally, normal sclerae, MMM. Appears to have a whitish plaque on tongue but is having no symptoms related to thrush at this time. CARDIO: tachy rate, S1/2 heard without m/g/r LUNGS: CTA bilaterally, no crackles, rales or wheezes, good diaphragmatic excursion ABD: soft, non-tender, non-distended, no rebound or guarding, +BS EXTREMITY: RP and DP palpable 2+ bilat, no LE swelling or edema, extremities are warm and well-perfused NEURO: CN 2-12 grossly intact, no gross focal deficits. MUSC: moves all extremities equally, no gross focal deficits but appears very deconditioned in general SKIN: warm and dry Laboratory Results: 07/25/17 08:23 07/25/17 08:23 Test 07/16/17 18:46 07/16/17 20:15 07/16/17 20:17 07/16/17 21:05 Prothrombin Time 10.2 SECONDS (9.0-12.0) Prothromb Time International Ratio 1.0 (0.9-1.1) Activated Partial Thromboplast Time 26.8 SECONDS (21.0-31.0) Partial Thromboplastin Ratio 1.0 Total Bilirubin 0.4 mg/dl (0.2-1) Direct Bilirubin < 0.1 mg/dl (0-0.2) Aspartate Amino Transf (AST/SGOT) 8 U/L (15-37) Alanine Aminotransferase (ALT/SGPT) 17 U/L (12-78) Alkaline Phosphatase 88 U/L (45-117) Total Protein 9.1 gm/dl (6.4-8.2) Albumin 3.6 gm/dl (3.4-5.0) Thyroid Stimulating Hormone (TSH) 0.955 uIu/ml (0.300-4.500) Bedside Lactic Acid Venous 1.01 mmol/L (0.90-1.70) Bedside Hemoglobin 12.9 g/dl (14.0-18.0) Bedside Hematocrit 38 % (42-52) Bedside Sodium 131 mEq/L (135-144) Bedside Potassium 7.3 mEq/L (3.3-5.0) Bedside Chloride 107 mEq/L (101-112) Bedside Total CO2 17 mEq/l (24-31) Bedside Blood Urea Nitrogen > 140 mg/dl (7-18) Bedside Creatinine 6.0 mg/dl (0.6-1.3) Bedside Glucose (other) 218 mg/dl (70-99) Bedside Ionized Calcium ([place]) 1.21 mmol/l (1.12-1.32) Urine Color YELLOW Urine Appearance TURBID (CLEAR) Urine pH 5.0 (4.5-7.5) Urine Specific [place] 1.016 (1.000-1.030) Urine Protein 1+ (NEG) Urine Glucose (UA) NEG (NEG) Urine Ketones NEG (NEG) Urine Occult Blood 3+ (NEG) Urine Nitrite NEG (NEG) Urine Bilirubin NEG (NEG) Urine Urobilinogen NEG (NEG) Urine Leukocyte Esterase LARGE (NEG) Urine WBC (Auto) >30 /hpf (0-5) Urine RBC (Auto) 10-30 /hpf (0-4) Urine Hyaline Casts (Auto) 0 /lpf (0-5) Urine Epithelial Cells (Auto) 10-20 /lpf (0-5) Urine Bacteria (Auto) NEG (NEG) Urine Pathogenic Casts /lpf (0) Test 07/17/17 01:20 07/17/17 08:39 07/17/17 18:03 07/18/17 04:36 Digoxin Level 0.7 ng/ml (0.8-2.0) Hepatitis B Surface Antigen NEG (NEG) Hepatitis B Surface Antibody POS Hepatitis B Core Total Antibody REACTIVE (NON-REACTIVE) Total Creatine Kinase 27 U/L (39-308) Creatine Kinase MB 1.6 ng/ml (0.5-3.6) Creatine Kinase MB Ratio 5.9 (0-3.0) Troponin I 0.038 ng/ml (0-0.045) Estimated Average Glucose 160 mg/dl Hemoglobin A1c 7.2 % (4.5-5.6) Test 07/19/17 05:02 07/19/17 08:09 07/21/17 05:34 07/23/17 08:48 Platelet Estimate DECREASED Phosphorus Level 6.1 mg/dl (2.5-4.9) Lipase 778 U/L (73-393) ARELI UF Heparin Low Dose 0.1 IU/mL 1 % Release ARELI UF Heparin Low Dose 0.5 IU/mL 0 % Release ARELI Unfractionat Heparin High Dose 0 % Release ARELI Unfractionated Heparin Negative (Negative) Heparin-PF4 Antibody Screen POS (NEG) Hypersegmented Polys 1+ Toxic Granulation 1+ Immature Granulocyte % (Auto) 0.5 % White Blood Count 8.08 K/uL (4.8-10.8) Red Blood Count 3.21 M/uL (4.7-6.1) Hemoglobin 9.4 g/dL (14.0-18.0) Hematocrit 29.9 % (42-52) Mean Corpuscular Volume 93.1 fL (80-100) Mean Corpuscular Hemoglobin 29.3 pg (25-34) Mean Corpuscular Hemoglobin Concent 31.4 g/dl (32-36) Platelet Count 85 K/uL (130-400) Mean Platelet Volume 11.0 fL (7.4-10.4) Neutrophils (%) (Auto) 83.1 % Lymphocytes (%) (Auto) 7.1 % Monocytes (%) (Auto) 5.8 % Eosinophils (%) (Auto) 3.1 % Basophils (%) (Auto) 0.4 % Neutrophils # (Auto) 6.72 K/uL (1.4-6.5) Lymphocytes # (Auto) 0.57 K/uL (1.2-3.4) Monocytes # (Auto) 0.47 K/uL (0.11-0.59) Eosinophils # (Auto) 0.25 K/uL (0-0.5) Basophils # (Auto) 0.03 K/uL (0-0.2) Immature Granulocyte # (Auto) 0.04 K/uL (0.00-0.02) Test 07/25/17 08:23 07/25/17 11:14 Red Blood Count 3.19 M/uL (4.7-6.1) Mean Corpuscular Volume 94.7 fL (80-100) Mean Corpuscular Hemoglobin 29.5 pg (25-34) Mean Corpuscular Hemoglobin Concent 31.1 g/dl (32-36) RDW Standard Deviation 48.2 fL (36.4-46.3) RDW Coefficient of Variation 13.9 % (11.5-14.5) Mean Platelet Volume 11.4 fL (7.4-10.4) Anion Gap 7.0 mmol/L (3-11) Est Creatinine Clear Calc Drug Dose 24.0 ml/min Estimated GFR () 20.7 Estimated GFR (Non- 17.9 BUN/Creatinine Ratio 11.1 (10-20) Calcium Level 8.4 mg/dl (8.5-10.1) Magnesium Level 2.3 mg/dl (1.8-2.4) Bedside Glucose 158 mg/dl (70-99) Date/Time Source Procedure Growth Status 07/16/17 20:04 Blood Blood Culture - Final NO GROWTH Complete 07/16/17 22:45 Nasal MRSA DNA Surveillance Screen - Final Specimen Negative for MRSA by DNA Probe Complete 07/16/17 21:05 Urine,Catheterized Urine Culture - Final MORE THAN THREE TYPES OF ORGANISMS NH... Complete Last 24 Hours Test 07/24/17 11:12 07/24/17 15:49 07/25/17 06:47 07/25/17 08:23 Bedside Glucose 160 mg/dl 130 mg/dl 147 mg/dl White Blood Count 8.47 K/uL Red Blood Count 3.19 M/uL Hemoglobin 9.4 g/dL Hematocrit 30.2 % Mean Corpuscular Volume 94.7 fL Mean Corpuscular Hemoglobin 29.5 pg Mean Corpuscular Hemoglobin Concent 31.1 g/dl RDW Standard Deviation 48.2 fL RDW Coefficient of Variation 13.9 % Platelet Count 95 K/uL Mean Platelet Volume 11.4 fL Assessment & Plan 87 yo M who presents with hyperkalemia and acute on chronic renal failure. He was admitted to the ICU and underwent temporizing measures until a HD catheter could be placed and has been receiving dialysis as inpatient since that time. He has afib w RVR and hypotension. Midodrine was added to help keep his BP up while dialyzing and removing ultrafiltrate. As his BP is improving this is being weaned down. Additionally Cardiology has been titrating his Metoprolol up to 50mg PO TID yesterday to help control his heart rate which was in the 90s this morning down from the one-teens yesterday. He is otherwise reporting no issues with pain, discomfort from palpitations, shortness of breath or other problems this morning. He is tolerating PO and reports having BMs. He denies getting up and ambulating and states that no one has been in to help him. Last PT visit was 07/21 and pt has declined them. I re-engaged with CM this morning to help with this and figuring out placement which will need to include inpt rehab services. 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 Management per Nephrology service who plans to do HD again tomorrow. HD in place and is clean and dry with no erythema surrounding the area. Hyperkalemia has resolved. Cont PhosLo. 2. Thrombocytopenia-this patient has had a false positive PF4 Ab in the past and this admission and does not appear to have HIT. He has had a negative serotonin release assay both in 2011 and again this admission. I have consulted Hematology for confirmation of this and for recommendations on the safety of using heparin with HD in the future and recs regarding the safety of adding back the DAPT with the Eliquis as needed for his heart stent and afib, respectively. 3. Chronic congestive heart failure with EF of 40%- diuretics on hold. Management of fluid with HD at this point. 4. CAD status post stent placement. Stable, no symptoms at this time. Continue beta kelly and statin. Pt is off nitrates and DAPT was stopped 48 hours ago in setting of thrombocytopenia. Eliquis was started at low dose ( 2.5mg PO BID) while monitoring platelet count. Repeat labwork this morning is still pending. 5. Hypotension-improved on midodrine. 6. Chronic respiratory failure secondary to COPD-Stable, no wheezing on exam. On Advair and albuterol p.r.n. 7 Atrial fibrillation with RVR-digoxin was stopped on admission in setting of worsening renal function. Of note, he was not on anticoagulation coming into the hospital because of hematuria on coumadin in the past. He has now been started on low dose Eliquis and is being monitored closely. Improved heart rate control overnight with up titration of Metoprolol to 50mg PO TID. 8. BPH-recent issue with urinary retention. Wallace was placed in ER and flomax was stopped as patient had hypotension and was started on midodrine. Pt passed TOV here in the hospital and remains on finasteride 5mg PO QHS. Needs outpatient Urology follow-up. 9. Complicated UTI/prostatitis per ID team-continuing with Invanz with last dose on 07/28 to complete 10 days. Wallace is out. Pt is asymptomatic. For now , would hospitalize patient to continue this IV antibiotic while adjusting his heart rate medications and addressing his PLT issue. PICC would not be ideal with only 3 more days of therapy left. Will discuss with ID if PO alternative would be available. 10. Anemia-chronic, stable, likely multifactorial including 2/2 frequent phlebotomy and anemia of CKD as well as other chronic diseases. DVT proph-Eliquis Full Code Dispo-uncertain at this time. PT/OT needs to see him and make recs. Case Management involved with me this morning and will start the process of getting him to a SNF. Most likely will keep until the end of the week at this point. Daysi Page DO [facility] Consultants: Farhad Mehta Current Inpatient Medications: Current Inpatient Medications Medications (Trade) Dose Ordered Sig/Ronak Route Start Time Stop Time Status Last Admin Dose Admin Hydromorphone HCl (Dilaudid Tab) 0.5 mg Q4H PRN PO 07/16/17 21:45 07/30/17 21:44 07/19/17 04:05 0.5 MG Finasteride (Proscar Tab) 5 mg HS PO 07/17/17 21:00 08/16/17 20:59 07/24/17 20:17 5 MG Salmeterol Xinafoate/ Fluticasone (Advair Diskus 250/50 Inh) 1 puff BID INH 07/17/17 09:00 08/16/17 08:59 07/25/17 07:46 1 PUFF Gabapentin (Neurontin Cap) 300 mg HS PO 07/17/17 21:00 08/16/17 20:59 07/24/17 20:17 300 MG Nitroglycerin (Nitrostat Tab) 0.4 mg UD PRN UT 07/16/17 21:45 08/15/17 21:44 Simvastatin (Zocor Tab) 40 mg QPM PO 07/17/17 21:00 08/16/17 20:59 07/24/17 20:17 40 MG Albuterol (Ventolin Hfa Inhaler) 2 puffs Q4H PRN INH 07/16/17 21:45 08/15/17 21:44 Miscellaneous Information (Consult Glycemic Management Pharmacy) 1 ea UD PRN N/A 07/17/17 10:40 08/16/17 10:39 Insulin Aspart (novoLOG ASPART) SLIDING SCALE ACHS SC 07/18/17 16:45 08/17/17 16:44 07/25/17 07:55 3 UNITS Al Hydroxide/Mg Hydroxide (Maalox Susp) 15 ml Q6H PRN PO 07/18/17 20:45 08/17/17 20:44 Docusate Sodium (coLACE CAP) 100 mg BID PO 07/19/17 09:00 08/18/17 08:59 07/25/17 07:48 100 MG Calcium Acetate (Phoslo Cap) 667 mg TIDM PO 07/19/17 07:15 1/19/18 07:14 07/25/17 07:47 667 MG Ertapenem 500 mg/ Sodium Chloride 55 ml @ 110 mls/hr DAILY@1000 IV 07/19/17 10:30 07/29/17 10:29 07/24/17 12:14 110 MLS/HR Ondansetron HCl (Zofran Inj) 4 mg Q6H PRN IV 07/19/17 17:00 08/18/17 16:59 07/19/17 17:46 4 MG Polyethylene (Miralax Powder Packet) 17 gm DAILY PO 07/20/17 09:00 08/19/17 08:59 Insulin Glargine (Lantus Solostar Pen) SEE PROTOCOL T... QPM SC 07/22/17 21:00 08/21/17 20:59 07/24/17 20:21 10 UNITS Amiodarone HCl (Cordarone Tab) 400 mg TIDM PO 07/23/17 11:30 08/21/17 16:44 07/25/17 07:47 400 MG Metoprolol Tartrate (Lopressor Tab) 50 mg TID PO 07/24/17 14:00 08/19/17 08:59 07/25/17 07:47 50 MG Apixaban (Eliquis Tab) 2.5 mg BID PO 07/24/17 21:00 08/23/17 20:59 07/25/17 07:47 2.5 MG Midodrine (Proamatine Tab) 5 mg TID@08,12,17 PO 07/24/17 17:00 08/23/17 16:59 07/25/17 07:48 5 MG
[2017-07-25] MEDS: ERTAPENEM IV 500 MG in SODIUM CHLORIDE 0.9% 50 ML IV SCH (12:12)
--- NOTE | 2017-07-25 12:51 | CARDIOLOGY PROGRESS NOTE ---
DATE: 07/25/2017 DATE: 07/25/2017 FOLLOW-UP VISIT SUBJECTIVE: The patient is an 87-year-old who has been on dialysis since admission. He has had high heart rates due to persistent atrial arrhythmias. He was started on amiodarone and is on metoprolol. His heart rates are better controlled today and it appears that he is in an atrial flutter with variable conduction. He has no new cardiac complaints today. OBJECTIVE: GENERAL: He is alert and oriented in no acute distress. VITAL SIGNS: Blood pressure is 110/60, pulse is irregular at 90 beats per minute. He is afebrile. HEAD, EYES, EARS, NOSE, AND THROAT: He is normocephalic. Pupils are equal and reactive to light. Extraocular muscles are intact bilaterally. NECK: The neck veins are flat. Carotids have good upstrokes bilaterally without bruits. Thyroid is nonpalpable. RESPIRATORY: Breath sounds equal bilaterally and clear to auscultation. CARDIOVASCULAR: Heart has a regular rhythm. Normal S1, S2. No S3, S4. No cardiac rubs or murmurs. GASTROINTESTINAL: Abdomen is soft, nontender without organomegaly. EXTREMITIES: Free of edema, digit clubbing, or cyanosis. NEUROLOGIC: Grossly intact. SKIN: Warm to touch. LYMPH NODES: Negative to palpation. IMPRESSION: 1. Persistent atrial flutter. 2. Heparin-induced antibodies of thrombocytopenia. 3. Ischemic cardiomyopathy with an estimated left ventricular ejection fraction of 35-40%. 4. End-stage renal disease requiring dialysis. RECOMMENDATIONS: I would continue the patient at his current metoprolol dose and amiodarone.
--- NOTE | 2017-07-25 14:01 | Medical Consult ---
Consultation Date of Consultation: Jul 25, 2017. Attending Physician: Daysi Page DO History of Present Illness Hematology Consult: 87-year-old male, who has positive screening test for heparin thrombocytopenia antibody. Date of consultation: 07/25/2017 HPI: 87-year-old male, admitted at [facility] for acute on chronic renal failure, hyperkalemia, now he is receiving hemodialysis, also has few other cardiac conditions in the form of atrial fibrillation, On admission blood workup done on 07/16/2017 showed WBC of 12,000, H&H of 14.8/ 42.9, Platelet count of 199,000. Over the last 10 days platelet count dropped down to around 78,000 as of 2016. I reviewed his medical records, he had low platelet count earlier in the previous hospitalization, subsequently platelet count has improved in the normal range. Had heparin-induced antibody screening test earlier he was admitted in the hospital in 2011 which was reported to be positive but confirmatory test in the form of serotonin releasing assay reported to be negative. During this time he had a similar test results with screening test positive but confirmatory test is negative. I saw him at bedside, he is comfortably lying down in the bed, he denies any new cardiac or pulmonary symptoms, no leg edema, no bleeding from any sites, in the past he did not have any thrombotic complications, no fever, REVIEW OF SYSTEMS: GENERAL: No change in weight, he was feeling weak and tired which has improved , no fatigue, no fever, sweats or chills. SKIN: No skin rash, no bruising. HEAD: No headache, no dizziness. EYES: No recent change in the vision, no diplopia, EARS: No earache ,no tinnitus, NOSE: No epistaxis, No nasal discharge or stuffiness, MOUTH: No sores, no dysphagia, no hoarseness of voice, NECK: No lumps, No swelling in thyroid area. No stiffness. PULMONARY: No cough, No shortness of breath, no hemoptysis, no chest pain, No wheezing. CARDIOVASCULAR: No anginal chest pain, no PND, no orthopnea. No palpitation, no leg edema. No syncope. GASTRIINTESTINAL: No abdominal pain, no nausea or vomiting. No diarrhea, No constipation. No blood in stool or black tarry stools. No abdominal distention. UROLOGIC: No burning urination. No hematuria. MUSCULOSKELETAL: No joint pain, No joint swelling, no muscle weakness. HEMATOLOGIC: No anemia, no bleeding disorder, No bruising. No history of blood transfusion. NEUROLOGIC: No seizures, no focal weakness, no speech difficulty, No memory disturbances. No tingling or numbness of the extremities. PSYCHRIATRIC: No depression. No anxiety. No psychosis. PAST MEDICAL/SURGICAL HISTORY: - Acute on chronic renal failure, atrial fibrillation, COPD, on oxygen therapy, diverticulitis, hyperlipidemia, hypertension, congestive heart failure. S/P TURP SOCIAL HISTORY: former smoker, no alcohol abuse, no IVDA, he lives by himself, he drives around by himself. FAMILY HISTORY: not significant. MEDICATIONS: please review his chart for detail list of medications. Recently he was started on Eliquis for underlying cardiac arrhythmia. On exam: - Alert and oriented x3, well built man, not in any distress. - HEENT: no icterus, no pallor, Throat: Normal. - Neck: No palpable cervical lymphadenopathy. - Chest: clear to auscultation. - Abdomen: soft, nontender, no hepatomegaly, no splenomegaly. - No focal neuro deficit. - Extremities: no finger clubbing, no leg edema. LABS: - Platelet count was on the lower side between 85,000-120,000 earlier in December 2007. - Platelet count became normal in the later part of December 2007. - Platelet count dropped down to around 120,000 in July 2010 when he was admitted hospital. - Platelet count was around 110,000 in the November 2015. - Platelet count was in the normal range in 04/2017. - White blood cell count has remained in the normal range over the last 10 years.-- Hemoglobin level has remained on the lower side between 11-13 g/dL over the last 10 years. - Heparin induced antibody screening test positive on 2 occasions (2011 and the recently on 05/19/2017 but on both occasions serotonin releasing assay --> Negative. - Normal PT and PTT. - WBC 8400, H&H of 9.4/30.2, Platelet count of 95,000 (07/25/2017). IMAGING: - CT scan of the abdomen and pelvis done on 07/16/2017 showed diverticulosis no hepatomegaly , normal appearance of the spleen noted no intra-abdominal lymphadenopathy noted. Imaging studies done on 10 27,017 showed presence of splenomegaly measuring about 15.6 cm. Imaging studies done in in november 2015 showed presence of splenomegaly measuring up to 16 cm. ASSESSMENT AND PLAN: 87-year-old male, who is admitted at [facility] for acute on chronic renal failure, now started hemodialysis, he had a normal platelet count when he came in, review of chart suggests that he had mild thrombocytopenia over the last 10 years, had HIT screening test was reported positive in 2012 as well as recently but both times serotonin in his essay is negative suggest no evidence of HIT in his case. Earlier imaging study showed splenomegaly measuring up to 16 cm which is most likely cause of mild thrombocytopenia in his case. I think we can use heparin-induced case if indicated. Similarly we can use antiplatelet agents if clinically indicated. There is no need for imaging follow-up at this time, follow-up periodic CBCD in his case. Thanks for the consultation. Fredy Dial MD Hem/Onc Past Medical/Surgical History Medical Problems: (1) ARF (acute renal failure) Status: Acute (2) ARF (acute renal failure) Status: Acute (3) Dehydration Status: Acute (4) Diverticulitis Status: Acute (5) Hyperglycemia Status: Acute (6) Hyperkalemia Status: Acute (7) Hypermagnesemia Status: Acute (8) Lower GI bleed Status: Acute (9) Pancreatitis Status: Acute (10) Renal failure Status: Acute (11) Renal failure Status: Acute (12) Urinary retention Status: Acute (13) UTI (urinary tract infection) Status: Acute Family History Heart disease Social History Smoking Status: Former Smoker Smokeless Tobacco Use: No Alcohol Use: none Drug Use: none Marital Status: Housing Status: lives alone Occupation Status: retired Allergies Coded Allergies: Iodine (Verified Allergy, Mild, HIVES, 07/16/17) Heparin (Verified Allergy, Unknown, ., 07/16/17) Sulfa Antibiotics (Verified Allergy, Unknown, ENTERED SULFA- UNKNOWN, 07/16/17) Current Inpatient Medications Current Inpatient Medications Medications (Trade) Dose Ordered Sig/Ronak Route Start Time Stop Time Status Last Admin Dose Admin Hydromorphone HCl (Dilaudid Tab) 0.5 mg Q4H PRN PO 07/16/17 21:45 07/30/17 21:44 07/19/17 04:05 0.5 MG Finasteride (Proscar Tab) 5 mg HS PO 07/17/17 21:00 08/16/17 20:59 07/24/17 20:17 5 MG Salmeterol Xinafoate/ Fluticasone (Advair Diskus 250/50 Inh) 1 puff BID INH 07/17/17 09:00 08/16/17 08:59 07/25/17 07:46 1 PUFF Gabapentin (Neurontin Cap) 300 mg HS PO 07/17/17 21:00 08/16/17 20:59 07/24/17 20:17 300 MG Nitroglycerin (Nitrostat Tab) 0.4 mg UD PRN UT 07/16/17 21:45 08/15/17 21:44 Simvastatin (Zocor Tab) 40 mg QPM PO 07/17/17 21:00 08/16/17 20:59 07/24/17 20:17 40 MG Albuterol (Ventolin Hfa Inhaler) 2 puffs Q4H PRN INH 07/16/17 21:45 08/15/17 21:44 Miscellaneous Information (Consult Glycemic Management Pharmacy) 1 ea UD PRN N/A 07/17/17 10:40 08/16/17 10:39 Insulin Aspart (novoLOG ASPART) SLIDING SCALE ACHS SC 07/18/17 16:45 08/17/17 16:44 07/25/17 12:14 6 UNITS Al Hydroxide/Mg Hydroxide (Maalox Susp) 15 ml Q6H PRN PO 07/18/17 20:45 08/17/17 20:44 Docusate Sodium (coLACE CAP) 100 mg BID PO 07/19/17 09:00 08/18/17 08:59 07/25/17 07:48 100 MG Calcium Acetate (Phoslo Cap) 667 mg TIDM PO 07/19/17 07:15 08/18/17 07:14 07/25/17 12:09 667 MG Ertapenem 500 mg/ Sodium Chloride 55 ml @ 110 mls/hr DAILY@1000 IV 07/19/17 10:30 07/29/17 10:29 07/25/17 12:12 110 MLS/HR Ondansetron HCl (Zofran Inj) 4 mg Q6H PRN IV 07/19/17 17:00 08/18/17 16:59 07/19/17 17:46 4 MG Polyethylene (Miralax Powder Packet) 17 gm DAILY PO 07/20/17 09:00 08/19/17 08:59 Insulin Glargine (Lantus Solostar Pen) SEE PROTOCOL T... QPM SC 07/22/17 21:00 08/21/17 20:59 07/24/17 20:21 10 UNITS Amiodarone HCl (Cordarone Tab) 400 mg TIDM PO 07/23/17 11:30 08/21/17 16:44 07/25/17 12:10 400 MG Metoprolol Tartrate (Lopressor Tab) 50 mg TID PO 07/24/17 14:00 08/19/17 08:59 07/25/17 13:55 50 MG Apixaban (Eliquis Tab) 2.5 mg BID PO 07/24/17 21:00 08/23/17 20:59 07/25/17 07:47 2.5 MG Midodrine (Proamatine Tab) 5 mg TID@,,17 PO 07/24/17 17:00 08/23/17 16:59 07/25/17 12:09 5 MG Physical Exam Date Time Temp Pulse Resp B/P (MAP) Pulse Ox O2 Delivery O2 Flow Rate FiO2 07/25/17 11:50 37.0 80 20 110/61 (77) 96 07/25/17 08:41 36.8 110 16 108/72 (84) 95 07/25/17 08:00 Nasal Cannula 3.0 07/25/17 04:00 Nasal Cannula 3.0 07/25/17 03:17 36.8 90 22 113/68 (83) 93 Nasal Cannula 4.5 07/25/17 00:44 36.8 110 21 105/69 (81) 90 Nasal Cannula 4.5 Humidified Oxygen 07/25/17 00:00 Nasal Cannula 3.0 07/24/17 20:00 Nasal Cannula 3.0 07/24/17 19:39 37.2 113 16 102/59 (73) 97 Nasal Cannula 4.0 07/24/17 16:00 Nasal Cannula 3.0 07/24/17 15:00 36.6 118 24 111/69 (83) 97 Nasal Cannula 4.0 Laboratory Results Last 24 Hours Test 07/24/17 15:49 07/25/17 06:47 07/25/17 08:23 07/25/17 11:14 Bedside Glucose 130 mg/dl 147 mg/dl 158 mg/dl White Blood Count 8.47 K/uL Red Blood Count 3.19 M/uL Hemoglobin 9.4 g/dL Hematocrit 30.2 % Mean Corpuscular Volume 94.7 fL Mean Corpuscular Hemoglobin 29.5 pg Mean Corpuscular Hemoglobin Concent 31.1 g/dl RDW Standard Deviation 48.2 fL RDW Coefficient of Variation 13.9 % Platelet Count 95 K/uL Mean Platelet Volume 11.4 fL Sodium Level 138 mmol/L Potassium Level 4.7 mmol/L Chloride Level 104 mmol/L Carbon Dioxide Level 27 mmol/L Anion Gap 7.0 mmol/L Blood Urea Nitrogen 34 mg/dl Creatinine 3.03 mg/dl Est Creatinine Clear Calc Drug Dose 24.0 ml/min Estimated GFR () 20.7 Estimated GFR (Non- 17.9 BUN/Creatinine Ratio 11.1 Random Glucose 154 mg/dl Calcium Level 8.4 mg/dl Magnesium Level 2.3 mg/dl
[2017-07-25] MEDS: INSULIN GLARGINE SOLOSTAR 100 UNITS/ML 3 ML PEN SC SCH (21:48)
[2017-07-25] MEDS: FINASTERIDE 5 MG TAB PO SCH (21:49)
[2017-07-25] MEDS: GABAPENTIN 300 MG CAP PO SCH (21:49)
[2017-07-25] MEDS: SIMVASTATIN 40 MG TAB PO SCH (21:52)
[2017-07-26] VITALS (18 sets, daily range): BP systolic 88–116; BP diastolic 51–75; PULSE 58–110; TEMP 36.4–37.1; O2SAT 91–97
[2017-07-26 05:59] LABS: HEMATOCRIT 29.9 % (42-52); HEMOGLOBIN 9.2 g/dL (14.0-18.0); MEAN CELL VOLUME 95.5 fL (80-100); MEAN CORPUSCULAR HEMOGLOBIN 29.4 pg (25-34); MEAN CORPUSCULAR HGB CONC 30.8 g/dl (32-36); MEAN PLATELET VOLUME 10.9 fL (7.4-10.4); PLATELET COUNT 117 K/uL (130-400); RED CELL DISTRIBUTION WIDTH CV 14.1 % (11.5-14.5); RED CELL DISTRIBUTION WIDTH SD 48.3 fL (36.4-46.3)
[2017-07-26 06:30] LABS: CALCIUM 8.4 mg/dl (8.5-10.1); CREATININE 3.41 mg/dl (0.60-1.40); POTASSIUM 4.8 mmol/L (3.5-5.1)
[2017-07-26 06:32] LABS: PHOSPHORUS 3.8 mg/dl (2.5-4.9)
[2017-07-26] MEDS: INSULIN ASPART 100 UNITS/ML 3 ML PEN SC SCH ×4 (07:46→21:10)
--- NOTE | 2017-07-26 07:47 | Nephrology Progress Note ---
Nephrology Progress Note Date of Service: Jul 26, 2017. Subjective 87 yo male with ckd stage 5 who presented with hyperkalemia and hypermagnesemia and uremic symptoms. had tunneled line placed. has been on dialysis and doing very well on it. uremic symptoms much improved. bp usually low on dialysis and difficult to remove fluid. have been dialyzing for clearance. continues to have a persistent tachycardia. pts appetite though is much better and looks more comfortable. Objective Date Time Temp Pulse Resp B/P (MAP) Pulse Ox O2 Delivery O2 Flow Rate FiO2 07/26/17 04:00 Nasal Cannula 3.0 07/26/17 03:44 37.0 99 21 102/72 (82) 91 Nasal Cannula 4.5 07/26/17 00:00 Nasal Cannula 3.0 07/25/17 23:59 36.8 70 22 104/69 (81) 97 Nasal Cannula 4.5 07/25/17 21:34 87 113/71 (85) 07/25/17 20:34 37.1 79 22 92/59 (70) 95 Nasal Cannula 4.0 07/25/17 20:00 Nasal Cannula 3.0 07/25/17 16:32 37.1 111 22 118/76 (90) 91 Nasal Cannula 4.0 07/25/17 16:00 Nasal Cannula 3.0 07/25/17 12:00 Nasal Cannula 3.0 07/25/17 11:50 37.0 80 20 110/61 (77) 96 07/25/17 08:41 36.8 110 16 108/72 (84) 95 07/25/17 08:00 Nasal Cannula 3.0 Physical Exam: General-[id number] Eyes-no scleral icterus ENT-mmm Neck-supple Lungs-slight end expiratory wheeze Heart-tachycardia Abdomen-bs+ s/nt/nd Extremities-no c/c/e Neuro-nonfocal Current Inpatient Medications Medications (Trade) Dose Ordered Sig/Ronak Route Start Time Stop Time Status Last Admin Dose Admin Hydromorphone HCl (Dilaudid Tab) 0.5 mg Q4H PRN PO 07/16/17 21:45 07/30/17 21:44 07/19/17 04:05 0.5 MG Finasteride (Proscar Tab) 5 mg HS PO 07/17/17 21:00 08/16/17 20:59 07/25/17 21:49 5 MG Salmeterol Xinafoate/ Fluticasone (Advair Diskus 250/50 Inh) 1 puff BID INH 07/17/17 09:00 08/16/17 08:59 07/25/17 21:51 1 PUFF Gabapentin (Neurontin Cap) 300 mg HS PO 07/17/17 21:00 08/16/17 20:59 07/25/17 21:49 300 MG Nitroglycerin (Nitrostat Tab) 0.4 mg UD PRN UT 07/16/17 21:45 08/15/17 21:44 Simvastatin (Zocor Tab) 40 mg QPM PO 07/17/17 21:00 08/16/17 20:59 07/25/17 21:52 40 MG Albuterol (Ventolin Hfa Inhaler) 2 puffs Q4H PRN INH 07/16/17 21:45 08/15/17 21:44 Miscellaneous Information (Consult Glycemic Management Pharmacy) 1 ea UD PRN N/A 07/17/17 10:40 08/16/17 10:39 Insulin Aspart (novoLOG ASPART) SLIDING SCALE ACHS SC 07/18/17 16:45 08/17/17 16:44 07/25/17 21:47 6 UNITS Al Hydroxide/Mg Hydroxide (Maalox Susp) 15 ml Q6H PRN PO 07/18/17 20:45 08/17/17 20:44 Docusate Sodium (coLACE CAP) 100 mg BID PO 07/19/17 09:00 08/18/17 08:59 07/25/17 21:50 100 MG Calcium Acetate (Phoslo Cap) 667 mg TIDM PO 07/19/17 07:15 08/18/17 07:14 07/25/17 17:06 667 MG Ertapenem 500 mg/ Sodium Chloride 55 ml @ 110 mls/hr DAILY@1000 IV 07/19/17 10:30 07/29/17 10:29 07/25/17 12:12 110 MLS/HR Ondansetron HCl (Zofran Inj) 4 mg Q6H PRN IV 07/19/17 17:00 08/18/17 16:59 07/19/17 17:46 4 MG Polyethylene (Miralax Powder Packet) 17 gm DAILY PO 07/20/17 09:00 08/19/17 08:59 Insulin Glargine (Lantus Solostar Pen) SEE PROTOCOL T... QPM SC 07/22/17 21:00 08/21/17 20:59 07/25/17 21:48 10 UNITS Amiodarone HCl (Cordarone Tab) 400 mg TIDM PO 07/23/17 11:30 08/21/17 16:44 07/25/17 17:05 400 MG Metoprolol Tartrate (Lopressor Tab) 50 mg TID PO 07/24/17 14:00 08/19/17 08:59 07/25/17 21:51 50 MG Apixaban (Eliquis Tab) 2.5 mg BID PO 07/24/17 21:00 08/23/17 20:59 07/25/17 21:50 2.5 MG Midodrine (Proamatine Tab) 5 mg TID@,, PO 07/24/17 17:00 08/23/17 16:59 07/25/17 17:07 5 MG Last 24 Hours Test 07/25/17 08:23 07/25/17 11:14 07/25/17 16:25 07/25/17 20:30 White Blood Count 8.47 K/uL Red Blood Count 3.19 M/uL Hemoglobin 9.4 g/dL Hematocrit 30.2 % Mean Corpuscular Volume 94.7 fL Mean Corpuscular Hemoglobin 29.5 pg Mean Corpuscular Hemoglobin Concent 31.1 g/dl RDW Standard Deviation 48.2 fL RDW Coefficient of Variation 13.9 % Platelet Count 95 K/uL Mean Platelet Volume 11.4 fL Sodium Level 138 mmol/L Potassium Level 4.7 mmol/L Chloride Level 104 mmol/L Carbon Dioxide Level 27 mmol/L Anion Gap 7.0 mmol/L Blood Urea Nitrogen 34 mg/dl Creatinine 3.03 mg/dl Est Creatinine Clear Calc Drug Dose 24.0 ml/min Estimated GFR () 20.7 Estimated GFR (Non- 17.9 BUN/Creatinine Ratio 11.1 Random Glucose 154 mg/dl Calcium Level 8.4 mg/dl Magnesium Level 2.3 mg/dl Bedside Glucose 158 mg/dl 138 mg/dl 218 mg/dl Test 07/26/17 05:20 07/26/17 06:33 White Blood Count 8.10 K/uL Red Blood Count 3.13 M/uL Hemoglobin 9.2 g/dL Hematocrit 29.9 % Mean Corpuscular Volume 95.5 fL Mean Corpuscular Hemoglobin 29.4 pg Mean Corpuscular Hemoglobin Concent 30.8 g/dl RDW Standard Deviation 48.3 fL RDW Coefficient of Variation 14.1 % Platelet Count 117 K/uL Mean Platelet Volume 10.9 fL Sodium Level 137 mmol/L Potassium Level 4.8 mmol/L Chloride Level 103 mmol/L Carbon Dioxide Level 30 mmol/L Anion Gap 4.0 mmol/L Blood Urea Nitrogen 34 mg/dl Creatinine 3.41 mg/dl Est Creatinine Clear Calc Drug Dose 21.3 ml/min Estimated GFR () 18.0 Estimated GFR (Non- 15.5 BUN/Creatinine Ratio 10.1 Random Glucose 129 mg/dl Calcium Level 8.4 mg/dl Phosphorus Level 3.8 mg/dl Magnesium Level 2.3 mg/dl Bedside Glucose 130 mg/dl Assessment & Plan CKD stage 5-on three days a week dialysis and being set up with local dialysis unit. for dialysis today. hypotension-not removing any fluid. on midodrine to help with bp. Anemia-goal hg of 10 to 11. giving procrit to help raise the hg levels. JUDITH: phos levels are good at 3.8 on phoslo one po tid with meals.
[2017-07-26] MEDS: AMIODARONE 200 MG TAB PO SCH ×3 (07:48→21:04)
[2017-07-26] MEDS: POLYETHYLENE (MIRALAX) 17 GM PACK PO SCH (07:50)
[2017-07-26] MEDS ORDERED: EPOETIN ALFA 10,000 UNITS/ML VIAL IV. SCH (08:00)
[2017-07-26] MEDS: METOPROLOL TARTRATE 50 MG TAB PO SCH ×3 (08:05→21:05)
[2017-07-26] MEDS: CALCIUM ACETATE 667MG GELCAP PO SCH ×3 (08:06→17:51)
[2017-07-26] MEDS: FLUTICASONE/SALMETEROL 250/50 (ADVAIR) 14 PUFF/1 INHALER INH SCH ×2 (08:07→21:04)
[2017-07-26] MEDS: APIXABAN 2.5 MG TAB PO SCH ×2 (08:09→21:06)
[2017-07-26] MEDS: DOCUSATE SODIUM 100 MG CAP PO SCH ×2 (08:10→21:05)
[2017-07-26] MEDS: MIDODRINE 10 MG TAB PO SCH ×3 (08:10→17:51)
--- NOTE | 2017-07-26 09:47 | Pharmacy Progress Note ---
Glycemic Control Progress Note Date of Service Jul 26, 2017. Scope Glycemic Pharmacist consulted for glycemic control to write orders per [facility] inpatient glycemic control protocol. Objective Accuchecks BSG (last 24hrs): Test 07/25/17 11:14 07/25/17 16:25 07/25/17 20:30 07/26/17 05:20 Bedside Glucose 158 mg/dl (70-99) 138 mg/dl (70-99) 218 mg/dl (70-99) Random Glucose 129 mg/dl (70-99) Test 07/26/17 06:33 Bedside Glucose 130 mg/dl (70-99) HbA1c: Test 07/18/17 04:36 Hemoglobin A1c 7.2 % (4.5-5.6) H Recent Pertinent Medications The patient is currently receiving: * Basal insulin: Lantus SQ Q HS, dosing per the following scale: 5 units if less than 110; 10 units if 110 or greater * Correctional Insulin: Novolog Correction per scale ACHS Goal Range: Low 120 mg/dL - High 160 mg/dL Correction Factor: 30 mg/dL/unit * Prandial insulin: Per carb ratio of 1 unit per 10 grams CHO consumed Assessment & Plan ASSESSMENT: 07/22/17 * Glycemic control has been acceptable over the last 24 hours; BSGs ranged 123- 158 while tolerating a diet * Patient is requiring substantially less insulin that her outpt regimen provided. Only received 15-18 units per day the last 3 days with decent control. * Fasting BSG 158 this AM with 5 units of Lantus on board; may need to begin titrating up the basal insulin dose slightly * Post prandial BSGs well controlled with current CR and CF * No HD is ordered yet for today 07/23/17 * BSGs well controlled over the past 24 hours; BSGs ranged 141-161 * Fasting BSG slightly elevated today, yet acceptable for HD patient given potential for BSG lability * Post-prandial BSGs at goal consistently w/ current CR 07/24-07/25 * No changes were made 07/26/17 * BSGs still relatively well controlled with current regimen. * There was one elevated BSG last evening, post-prandially - however this was a deviation from the current trend, therefore will not react yet * Fasting BSG at goal w/ current Lantus dose, however fasting had been mildly elevated the last several days, therefore a small dose increase would likely be tolerated well PLAN FOR INPATIENT GLYCEMIC CONTROL: * Increase Lantus SQ HS : 6 units if BSG less than 110; 12 units if BSG 110 or greater * Continuing correction factor of 30 mg/dl/unit * Continuing carb ratio of 1 unit per 10 grams CHO consumed * Continue goal range of Low 120 mg/dL - High 160 mg/dL RECOMMENDATIONS FOR DISCHARGE: * Patient is requiring substantially less insulin at this time * Outpatient dose of Lantus will require reduction as she is currently only requiring ~10 units of Lantus per day * Please note that the plan above was derived based on current level of insulin resistance and hospital stress. These recommendations are appropriate for inpatient admission only. Plan of care upon discharge will need to be reassessed to avoid potential outpatient hypo/hyperglycemia. Thank you.
[2017-07-26] MEDS: ERTAPENEM IV 500 MG in SODIUM CHLORIDE 0.9% 50 ML IV SCH (14:41)
--- NOTE | 2017-07-26 14:47 | PROGRESS NOTE ---
DATE: 07/26/2017 FOLLOWUP VISIT SUBJECTIVE: The patient is an 87-year-old male who has been on dialysis since admission. He returned to his room today after dialysis. He had been having persistent atrial arrhythmias with high heart rates, but today, it appears that he has returned to sinus rhythm. He has no current complaints. OBJECTIVE: GENERAL: He is alert and oriented, in no acute distress. VITAL SIGNS: Blood pressure is 110/70 and pulse is regular at 100 beats per minute. He is afebrile. HEENT: He is normocephalic. Pupils are equal and reactive to light. Extraocular muscles are intact bilaterally. NECK: The neck veins are flat. Carotids have good upstrokes bilaterally without bruits. Thyroid is nonpalpable. RESPIRATORY: Breath sounds equal bilaterally and clear to auscultation. CARDIOVASCULAR: Heart has a regular rhythm. Normal S1 and S2. No S3 or S4. No cardiac rubs or murmurs. GASTROINTESTINAL: Abdomen is soft and nontender without organomegaly. EXTREMITIES: Free of edema, digit clubbing, or cyanosis. NEUROLOGIC: Grossly intact. SKIN: Warm to touch. LYMPH NODES: Negative to palpation. IMPRESSION: 1. Paroxysmal atrial fibrillation. 2. Thrombocytopenia due to splenomegaly. 3. Ischemic cardiomyopathy with an estimated left ventricular ejection fraction of 35%-40%. 4. End-stage renal disease, requiring dialysis. RECOMMENDATIONS: The patient will continue with the amiodarone load. We will reevaluate him tomorrow and reduce the dose if appropriate.
--- NOTE | 2017-07-26 16:03 | Progress Note ---
Medicine Progress Note Date & Time of Visit: Jul 26, 2017 at 13:10. Subjective 87 yo M who presents with hyperkalemia and acute on chronic renal failure. He was admitted to the ICU and underwent temporizing measures until a HD catheter could be placed and has been receiving dialysis as inpatient since that time. He has afib w RVR and hypotension. Midodrine was added to help keep his BP up while dialyzing and removing ultrafiltrate. As his BP is improving this is being weaned down. Additionally Cardiology has added amiodarone and has been titrating his Metoprolol to help control his heart rate which is more controlled today. He is otherwise reporting no issues with pain, shortness of breath or other problems. He is tolerating PO. PT worked with him this morning. Objective Last 8 Hrs Date Time Temp Pulse Resp B/P (MAP) Pulse Ox O2 Delivery O2 Flow Rate FiO2 07/26/17 12:45 110 105/72 07/26/17 12:30 110 114/75 07/26/17 12:15 72 96/67 07/26/17 12:00 87 104/71 07/26/17 11:45 105 104/65 07/26/17 11:30 105 91/60 07/26/17 11:15 68 94/51 07/26/17 11:00 76 100/67 07/26/17 10:45 105 104/60 07/26/17 10:30 73 88/69 07/26/17 10:15 58 97/61 07/26/17 10:02 73 111/64 07/26/17 09:55 36.4 66 98/63 (75) 07/26/17 08:24 36.8 102 18 112/66 (81) 97 07/26/17 08:00 Nasal Cannula 3.0 Physical Exam: GEN: obese, in no acute distress, alert and appropriate, appears deconditioned and fatigued having just finished HD HEENT: NC/AT, pupils are equal and round bilaterally, normal sclerae, MMM. CARDIO: reg rate, S1/2 heard without m/g/r LUNGS: CTA bilaterally, no crackles, rales or wheezes, good diaphragmatic excursion ABD: soft, non-tender, non-distended, no rebound or guarding, +BS EXTREMITY: RP and DP palpable 2+ bilat, no LE swelling or edema, extremities are warm and well-perfused NEURO: CN 2-12 grossly intact, no gross focal deficits. MUSC: moves all extremities equally, no gross focal deficits but appears very deconditioned in general SKIN: warm and dry Laboratory Results: 07/26/17 05:20 07/26/17 05:20 Test 07/16/17 18:46 07/16/17 20:15 07/16/17 20:17 07/16/17 21:05 Prothrombin Time 10.2 SECONDS (9.0-12.0) Prothromb Time International Ratio 1.0 (0.9-1.1) Activated Partial Thromboplast Time 26.8 SECONDS (21.0-31.0) Partial Thromboplastin Ratio 1.0 Total Bilirubin 0.4 mg/dl (0.2-1) Direct Bilirubin < 0.1 mg/dl (0-0.2) Aspartate Amino Transf (AST/SGOT) 8 U/L (15-37) Alanine Aminotransferase (ALT/SGPT) 17 U/L (12-78) Alkaline Phosphatase 88 U/L (45-117) Total Protein 9.1 gm/dl (6.4-8.2) Albumin 3.6 gm/dl (3.4-5.0) Thyroid Stimulating Hormone (TSH) 0.955 uIu/ml (0.300-4.500) Bedside Lactic Acid Venous 1.01 mmol/L (0.90-1.70) Bedside Hemoglobin 12.9 g/dl (14.0-18.0) Bedside Hematocrit 38 % (42-52) Bedside Sodium 131 mEq/L (135-144) Bedside Potassium 7.3 mEq/L (3.3-5.0) Bedside Chloride 107 mEq/L (101-112) Bedside Total CO2 17 mEq/l (24-31) Bedside Blood Urea Nitrogen > 140 mg/dl (7-18) Bedside Creatinine 6.0 mg/dl (0.6-1.3) Bedside Glucose (other) 218 mg/dl (70-99) Bedside Ionized Calcium (Germán) 1.21 mmol/l (1.12-1.32) Urine Color YELLOW Urine Appearance TURBID (CLEAR) Urine pH 5.0 (4.5-7.5) Urine Specific Concrete 1.016 (1.000-1.030) Urine Protein 1+ (NEG) Urine Glucose (UA) NEG (NEG) Urine Ketones NEG (NEG) Urine Occult Blood 3+ (NEG) Urine Nitrite NEG (NEG) Urine Bilirubin NEG (NEG) Urine Urobilinogen NEG (NEG) Urine Leukocyte Esterase LARGE (NEG) Urine WBC (Auto) >30 /hpf (0-5) Urine RBC (Auto) 10-30 /hpf (0-4) Urine Hyaline Casts (Auto) 0 /lpf (0-5) Urine Epithelial Cells (Auto) 10-20 /lpf (0-5) Urine Bacteria (Auto) NEG (NEG) Urine Pathogenic Casts /lpf (0) Test 07/17/17 01:20 07/17/17 08:39 07/17/17 18:03 07/18/17 04:36 Digoxin Level 0.7 ng/ml (0.8-2.0) Hepatitis B Surface Antigen NEG (NEG) Hepatitis B Surface Antibody POS Hepatitis B Core Total Antibody REACTIVE (NON-REACTIVE) Total Creatine Kinase 27 U/L (39-308) Creatine Kinase MB 1.6 ng/ml (0.5-3.6) Creatine Kinase MB Ratio 5.9 (0-3.0) Troponin I 0.038 ng/ml (0-0.045) Estimated Average Glucose 160 mg/dl Hemoglobin A1c 7.2 % (4.5-5.6) Test 07/19/17 05:02 07/19/17 08:09 07/21/17 05:34 07/23/17 08:48 Platelet Estimate DECREASED Lipase 778 U/L (73-393) ARELI UF Heparin Low Dose 0.1 IU/mL 1 % Release ARELI UF Heparin Low Dose 0.5 IU/mL 0 % Release ARELI Unfractionat Heparin High Dose 0 % Release ARELI Unfractionated Heparin Negative (Negative) Heparin-PF4 Antibody Screen POS (NEG) Hypersegmented Polys 1+ Toxic Granulation 1+ Immature Granulocyte % (Auto) 0.5 % White Blood Count 8.08 K/uL (4.8-10.8) Red Blood Count 3.21 M/uL (4.7-6.1) Hemoglobin 9.4 g/dL (14.0-18.0) Hematocrit 29.9 % (42-52) Mean Corpuscular Volume 93.1 fL (80-100) Mean Corpuscular Hemoglobin 29.3 pg (25-34) Mean Corpuscular Hemoglobin Concent 31.4 g/dl (32-36) Platelet Count 85 K/uL (130-400) Mean Platelet Volume 11.0 fL (7.4-10.4) Neutrophils (%) (Auto) 83.1 % Lymphocytes (%) (Auto) 7.1 % Monocytes (%) (Auto) 5.8 % Eosinophils (%) (Auto) 3.1 % Basophils (%) (Auto) 0.4 % Neutrophils # (Auto) 6.72 K/uL (1.4-6.5) Lymphocytes # (Auto) 0.57 K/uL (1.2-3.4) Monocytes # (Auto) 0.47 K/uL (0.11-0.59) Eosinophils # (Auto) 0.25 K/uL (0-0.5) Basophils # (Auto) 0.03 K/uL (0-0.2) Immature Granulocyte # (Auto) 0.04 K/uL (0.00-0.02) Test 07/26/17 05:20 07/26/17 06:33 Red Blood Count 3.13 M/uL (4.7-6.1) Mean Corpuscular Volume 95.5 fL (80-100) Mean Corpuscular Hemoglobin 29.4 pg (25-34) Mean Corpuscular Hemoglobin Concent 30.8 g/dl (32-36) RDW Standard Deviation 48.3 fL (36.4-46.3) RDW Coefficient of Variation 14.1 % (11.5-14.5) Mean Platelet Volume 10.9 fL (7.4-10.4) Anion Gap 4.0 mmol/L (3-11) Est Creatinine Clear Calc Drug Dose 21.3 ml/min Estimated GFR () 18.0 Estimated GFR (Non- 15.5 BUN/Creatinine Ratio 10.1 (10-20) Calcium Level 8.4 mg/dl (8.5-10.1) Phosphorus Level 3.8 mg/dl (2.5-4.9) Magnesium Level 2.3 mg/dl (1.8-2.4) Bedside Glucose 130 mg/dl (70-99) Date/Time Source Procedure Growth Status 07/16/17 20:04 Blood Blood Culture - Final NO GROWTH Complete 07/16/17 22:45 Nasal MRSA DNA Surveillance Screen - Final Specimen Negative for MRSA by DNA Probe Complete 07/16/17 21:05 Urine,Catheterized Urine Culture - Final MORE THAN THREE TYPES OF ORGANISMS MS... Complete Last 24 Hours Test 07/25/17 16:25 07/25/17 20:30 07/26/17 05:20 07/26/17 06:33 Bedside Glucose 138 mg/dl 218 mg/dl 130 mg/dl White Blood Count 8.10 K/uL Red Blood Count 3.13 M/uL Hemoglobin 9.2 g/dL Hematocrit 29.9 % Mean Corpuscular Volume 95.5 fL Mean Corpuscular Hemoglobin 29.4 pg Mean Corpuscular Hemoglobin Concent 30.8 g/dl RDW Standard Deviation 48.3 fL RDW Coefficient of Variation 14.1 % Platelet Count 117 K/uL Mean Platelet Volume 10.9 fL Sodium Level 137 mmol/L Potassium Level 4.8 mmol/L Chloride Level 103 mmol/L Carbon Dioxide Level 30 mmol/L Anion Gap 4.0 mmol/L Blood Urea Nitrogen 34 mg/dl Creatinine 3.41 mg/dl Est Creatinine Clear Calc Drug Dose 21.3 ml/min Estimated GFR () 18.0 Estimated GFR (Non- 15.5 BUN/Creatinine Ratio 10.1 Random Glucose 129 mg/dl Calcium Level 8.4 mg/dl Phosphorus Level 3.8 mg/dl Magnesium Level 2.3 mg/dl Assessment & Plan 87 yo M who presents with hyperkalemia and acute on chronic renal failure. He was admitted to the ICU and underwent temporizing measures until a HD catheter could be placed and has been receiving dialysis as inpatient since that time. He has afib w RVR and hypotension. Midodrine was added to help keep his BP up while dialyzing and removing ultrafiltrate. As his BP is improving this is being weaned down. Additionally Cardiology has added amiodarone and has been titrating his Metoprolol to help control his heart rate which is more controlled today. He is otherwise reporting no issues with pain, shortness of breath or other problems. He is tolerating PO. PT worked with him this morning. 1. Atrial fibrillation with RVR-digoxin was stopped on admission in setting of worsening renal function. Of note, he was not on anticoagulation coming into the hospital because of hematuria on coumadin in the past. He has now been started on low dose Eliquis and is being monitored closely. Improved heart rate control with up titration of Metoprolol to 50mg PO TID. Pt has also been on an amiodarone load since 07/23 and is being monitored by Cards. 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 Management per Nephrology service-[facility] dialysis schedule. Just finished HD today and is fatigued. No fluid removed but HD was difficult because they were not able to use heparin. HD in place and is clean and dry with no erythema surrounding the area. Cont PhosLo. 3. Thrombocytopenia-improved. Per Hematology, it is OK to use heparin in this case if needed and to use antiplatelets if needed. Heparin was removed from his allergy list. Will let Nephrology know this is fine for HD and will add back ASA. He has had a false positive PF4 Ab in the past and this admission and does not appear to have HIT based on two negative serotonin release assay tests. 4. Chronic congestive heart failure with EF of 40%- diuretics on hold. Management of fluid with HD at this point. Consider adding back diuretics-will discuss with Nephrology. 5. CAD status post stent placement. Stable, no symptoms at this time. Continue beta kelly, statin and added back ASA 81 based on Hematology recs. Plavix was stopped in setting of thrombocytopenia. Eliquis was started at low dose (2.5mg PO BID) while monitoring platelet count which is improved. 6. Hypotension-improved on midodrine. 7. Chronic respiratory failure secondary to COPD-Stable, no wheezing on exam. On Advair and albuterol p.r.n. Continuous supplemental oxygen. 8. BPH-recent issue with urinary retention. Wallace was placed in ER and flomax was stopped as patient had hypotension and was started on midodrine. Pt passed TOV here in the hospital and remains on finasteride 5mg PO QHS. Needs outpatient Urology follow-up. 9. Complicated UTI/prostatitis per ID team-continuing 10 days of Invanz. Wallace is out. Pt is asymptomatic. Per pharmacy, last dose is today. 10. Anemia-chronic, stable, likely multifactorial including 2/2 frequent phlebotomy and anemia of CKD as well as other chronic diseases. Cont to monitor. DVT proph-Eliquis Full Code Dispo-uncertain at this time. PT/OT needs to see him and make recs. Case Management involved with me this morning and will start the process of getting him to a SNF. Most likely will keep until the end of the week at this point. DO Sydney Robison Hospitalist Consultants: [facility] Current Inpatient Medications: Current Inpatient Medications Medications (Trade) Dose Ordered Sig/Ronak Route Start Time Stop Time Status Last Admin Dose Admin Hydromorphone HCl (Dilaudid Tab) 0.5 mg Q4H PRN PO 07/16/17 21:45 07/30/17 21:44 07/19/17 04:05 0.5 MG Finasteride (Proscar Tab) 5 mg HS PO 07/17/17 21:00 08/16/17 20:59 07/25/17 21:49 5 MG Salmeterol Xinafoate/ Fluticasone (Advair Diskus 250/50 Inh) 1 puff BID INH 07/17/17 09:00 08/16/17 08:59 07/26/17 08:07 1 PUFF Gabapentin (Neurontin Cap) 300 mg HS PO 07/17/17 21:00 08/16/17 20:59 07/25/17 21:49 300 MG Nitroglycerin (Nitrostat Tab) 0.4 mg UD PRN UT 07/16/17 21:45 08/15/17 21:44 Simvastatin (Zocor Tab) 40 mg QPM PO 07/17/17 21:00 08/16/17 20:59 07/25/17 21:52 40 MG Albuterol (Ventolin Hfa Inhaler) 2 puffs Q4H PRN INH 07/16/17 21:45 08/15/17 21:44 Miscellaneous Information (Consult Glycemic Management Pharmacy) 1 ea UD PRN N/A 07/17/17 10:40 08/16/17 10:39 Insulin Aspart (novoLOG ASPART) SLIDING SCALE ACHS SC 07/18/17 16:45 08/17/17 16:44 07/26/17 07:46 3 UNITS Al Hydroxide/Mg Hydroxide (Maalox Susp) 15 ml Q6H PRN PO 07/18/17 20:45 08/17/17 20:44 Docusate Sodium (coLACE CAP) 100 mg BID PO 07/19/17 09:00 08/18/17 08:59 07/26/17 08:10 100 MG Calcium Acetate (Phoslo Cap) 667 mg TIDM PO 07/19/17 07:15 08/18/17 07:14 07/26/17 08:06 667 MG Ertapenem 500 mg/ Sodium Chloride 55 ml @ 110 mls/hr DAILY@1000 IV 07/19/17 10:30 07/26/17 23:59 07/25/17 12:12 110 MLS/HR Ondansetron HCl (Zofran Inj) 4 mg Q6H PRN IV 07/19/17 17:00 08/18/17 16:59 07/19/17 17:46 4 MG Polyethylene (Miralax Powder Packet) 17 gm DAILY PO 07/20/17 09:00 08/19/17 08:59 07/26/17 07:50 17 GM Insulin Glargine (Lantus Solostar Pen) SEE PROTOCOL T... QPM SC 07/22/17 21:00 08/21/17 20:59 07/25/17 21:48 10 UNITS Amiodarone HCl (Cordarone Tab) 400 mg TIDM PO 07/23/17 11:30 08/21/17 16:44 07/26/17 07:48 400 MG Metoprolol Tartrate (Lopressor Tab) 50 mg TID PO 07/24/17 14:00 08/19/17 08:59 07/26/17 08:05 50 MG Apixaban (Eliquis Tab) 2.5 mg BID PO 07/24/17 21:00 08/23/17 20:59 07/26/17 08:09 2.5 MG Midodrine (Proamatine Tab) 5 mg TID@08,,17 PO 07/24/17 17:00 08/23/17 16:59 07/26/17 08:10 5 MG Epoetin Alexis (Procrit Inj) 10,000 units 0800 IV. 07/26/17 08:00 07/26/17 18:00 07/26/17 11:45 10,000 UNITS Aspirin (Ecotrin Tab) 81 mg QAM PO 07/27/17 09:00 08/26/17 08:59
[2017-07-26] MEDS: GABAPENTIN 300 MG CAP PO SCH (21:05)
[2017-07-26] MEDS: FINASTERIDE 5 MG TAB PO SCH (21:05)
[2017-07-26] MEDS: SIMVASTATIN 40 MG TAB PO SCH (21:05)
[2017-07-26] MEDS: INSULIN GLARGINE SOLOSTAR 100 UNITS/ML 3 ML PEN SC SCH (21:12)
[2017-07-27] VITALS (7 sets, daily range): BP systolic 90–129; BP diastolic 56–78; PULSE 76–99; TEMP 36.5–37.1; O2SAT 90–98
[2017-07-27] MEDS: INSULIN ASPART 100 UNITS/ML 3 ML PEN SC SCH ×4 (07:50→20:34)
[2017-07-27] MEDS: AMIODARONE 200 MG TAB PO SCH ×3 (07:51→17:09)
[2017-07-27] MEDS: MIDODRINE 10 MG TAB PO SCH ×2 (07:53→13:09)
[2017-07-27] MEDS: POLYETHYLENE (MIRALAX) 17 GM PACK PO SCH (07:54)
[2017-07-27] MEDS: CALCIUM ACETATE 667MG GELCAP PO SCH ×3 (07:59→17:09)
[2017-07-27] MEDS ORDERED: ASPIRIN 81 MG ECTAB PO SCH (09:00)
[2017-07-27] MEDS: APIXABAN 2.5 MG TAB PO SCH ×2 (10:04→21:02)
[2017-07-27] MEDS: ASPIRIN 81 MG ECTAB PO SCH (10:05)
[2017-07-27] MEDS: DOCUSATE SODIUM 100 MG CAP PO SCH ×2 (10:05→21:02)
[2017-07-27] MEDS: FLUTICASONE/SALMETEROL 250/50 (ADVAIR) 14 PUFF/1 INHALER INH SCH ×2 (10:05→21:02)
[2017-07-27] MEDS: METOPROLOL TARTRATE 50 MG TAB PO SCH ×3 (10:06→21:02)
--- NOTE | 2017-07-27 11:31 | Pharmacy Progress Note ---
Glycemic Control Progress Note Date of Service Jul 27, 2017. Scope Glycemic Pharmacist consulted for glycemic control to write orders per [facility] inpatient glycemic control protocol. Objective Accuchecks BSG (last 24hrs): Test 07/26/17 16:15 07/26/17 20:33 07/27/17 11:13 Bedside Glucose 173 mg/dl (70-99) 161 mg/dl (70-99) 201 mg/dl (70-99) HbA1c: Test 07/18/17 04:36 Hemoglobin A1c 7.2 % (4.5-5.6) H Recent Pertinent Medications The patient is currently receiving: * Basal insulin: Lantus SQ Q HS, dosing per the following scale: 6 units if less than 110; 12 units if 110 or greater * Correctional Insulin: Novolog Correction per scale ACHS Goal Range: Low 120 mg/dL - High 160 mg/dL Correction Factor: 30 mg/dL/unit * Prandial insulin: Per carb ratio of 1 unit per 10 grams CHO consumed Outpatient Anti-Diabetic Meds Reported to be Lantus 50 units SQ BID Assessment & Plan ASSESSMENT: 07/22/17 * Glycemic control has been acceptable over the last 24 hours; BSGs ranged 123- 158 while tolerating a diet * Patient is requiring substantially less insulin that her outpt regimen provided. Only received 15-18 units per day the last 3 days with decent control. * Fasting BSG 158 this AM with 5 units of Lantus on board; may need to begin titrating up the basal insulin dose slightly * Post prandial BSGs well controlled with current CR and CF * No HD is ordered yet for today 07/23/17 * BSGs well controlled over the past 24 hours; BSGs ranged 141-161 * Fasting BSG slightly elevated today, yet acceptable for HD patient given potential for BSG lability * Post-prandial BSGs at goal consistently w/ current CR 07/24-07/25 * No changes were made 07/26/17 * BSGs still relatively well controlled with current regimen. * There was one elevated BSG last evening, post-prandially - however this was a deviation from the current trend, therefore will not react yet * Fasting BSG at goal w/ current Lantus dose, however fasting had been mildly elevated the last several days, therefore a small dose increase would likely be tolerated well 07/27/17 * BSGs well controlled yesterday, BSGs ranged 129-173 throughout the day; pre- lunch BSG missing yesterday - likely was not checked while at HD * Fasting BSG result not available today. Recorded as 161 by RN this AM however this was the HS BSG last night * If BSG was 161 this AM she is basal deficient. BSGs are trending higher over the last 24 hrs and this is following a HD session. I am inclined to continue to increase her basal insulin dose as a result. PLAN FOR INPATIENT GLYCEMIC CONTROL: * Increase Lantus SQ HS : 8 units if BSG less than 110; 14 units if BSG 110 or greater * Continuing correction factor of 30 mg/dl/unit * Continuing carb ratio of 1 unit per 10 grams CHO consumed * Continue goal range of Low 120 mg/dL - High 160 mg/dL RECOMMENDATIONS FOR DISCHARGE: * Patient is requiring substantially less insulin at this time * Outpatient dose of Lantus will require reduction as she is currently only requiring ~10 units of Lantus per day * Please note that the plan above was derived based on current level of insulin resistance and hospital stress. These recommendations are appropriate for inpatient admission only. Plan of care upon discharge will need to be reassessed to avoid potential outpatient hypo/hyperglycemia. Thank you.
--- NOTE | 2017-07-27 15:40 | CARDIOLOGY PROGRESS NOTE ---
DATE: 07/27/2017 DATE: 07/27/2017 FOLLOW-UP VISIT SUBJECTIVE: The patient is an 87-year-old male who has been on dialysis since admission. He has had persistent atrial arrhythmias and has been started on amiodarone combined with metoprolol. It appears on the monitor that he may be in slow flutter with variable response. His heart rates have improved. I will obtain an EKG to better delineate his underlying rhythm. He is tolerating his medications and has no complaints today. He is on Eliquis 2.5 mg twice daily. OBJECTIVE: GENERAL: He is alert and oriented in no acute distress. VITAL SIGNS: Blood pressure is 120/70, pulse is regular at 80 beats per minute. He is afebrile. HEAD, EYES, EARS, NOSE, AND THROAT: Normocephalic. Pupils are equal and reactive to light. Extraocular muscles are intact bilaterally. NECK: The neck veins are flat. Carotids have good upstrokes bilaterally without bruits. Thyroid is nonpalpable. RESPIRATORY: Breath sounds equal bilaterally and clear to auscultation. CARDIOVASCULAR: Heart has a regular rhythm. Normal S1, S2. No S3, S4. No cardiac rubs or murmurs. GASTROINTESTINAL: Abdomen is soft, nontender without organomegaly. EXTREMITIES: Free of edema, digit clubbing, or cyanosis. NEUROLOGIC: Grossly intact. SKIN: Warm to touch. LYMPH NODES: Negative to palpation. IMPRESSION: 1. Persistent atrial flutter with controlled ventricular rate. 2. Thrombocytopenia due to splenomegaly. 3. Ischemic cardiomyopathy with an estimated left ventricular ejection fraction of 35-40%. 4. End-stage renal disease requiring dialysis. RECOMMENDATIONS: I would continue the amiodarone load at 400 mg t.i.d. along with the patient's metoprolol. I think it is best that would leave him on a science teacher for now. As mentioned above, I will obtain an EKG to further delineate his arrhythmias. The patient also is maintaining a good blood pressure and I will reduce his midodrine again to 2.5 mg t.i.d. An alpha agonist is probably not the best for patient with an ischemic cardiomyopathy.
[2017-07-27] MEDS ORDERED: MIDODRINE 10 MG TAB PO SCH (17:00)
[2017-07-27] MEDS: MIDODRINE 2.5 MG TAB PO SCH (17:09)
[2017-07-27] MEDS: SIMVASTATIN 40 MG TAB PO SCH (21:02)
[2017-07-27] MEDS: GABAPENTIN 300 MG CAP PO SCH (21:02)
[2017-07-27] MEDS: FINASTERIDE 5 MG TAB PO SCH (21:02)
[2017-07-27] MEDS: INSULIN GLARGINE SOLOSTAR 100 UNITS/ML 3 ML PEN SC SCH (21:11)
--- NOTE | 2017-07-27 22:39 | Progress Note ---
Medicine Progress Note Date & Time of Visit: Jul 27, 2017 at 14:38. Subjective 87 yo M who presents with hyperkalemia and acute on chronic renal failure. He was admitted to the ICU and underwent temporizing measures until a HD catheter could be placed and has been receiving dialysis as inpatient since that time. He has afib w RVR and hypotension. Midodrine was added to help keep his BP up while dialyzing and removing ultrafiltrate. As his BP is improving this is being weaned down. Additionally Cardiology has added amiodarone and has been titrating his Metoprolol to help control his heart rate which is more controlled today. He is otherwise reporting no issues with pain, shortness of breath or other problems but states he is "miserable" and "disgusted." He verbalized understanding of the treatment plan. He is tolerating PO. Objective Last 8 Hrs Date Time Temp Pulse Resp B/P (MAP) Pulse Ox O2 Delivery O2 Flow Rate FiO2 07/27/17 12:00 Nasal Cannula 3.0 07/27/17 10:46 36.5 76 27 117/76 (90) 92 Nasal Cannula 5.0 07/27/17 08:00 Nasal Cannula 3.0 07/27/17 07:22 36.6 97 22 129/78 (95) 92 Nasal Cannula 5.0 Physical Exam: GEN: obese, in no acute distress, alert and appropriate, appears deconditioned HEENT: NC/AT, pupils are equal and round bilaterally, normal sclerae, MMM. CARDIO: reg rate, S1/2 heard without m/g/r LUNGS: CTA bilaterally, no crackles, rales or wheezes, good diaphragmatic excursion ABD: soft, non-tender, non-distended, no rebound or guarding, +BS EXTREMITY: RP and DP palpable 2+ bilat, no LE swelling or edema, extremities are warm and well-perfused NEURO: CN 2-12 grossly intact, no gross focal deficits. MUSC: moves all extremities equally, no gross focal deficits but appears very deconditioned in general SKIN: warm and dry Laboratory Results: 07/26/17 05:20 07/26/17 05:20 Test 07/16/17 18:46 07/16/17 20:15 07/16/17 20:17 07/16/17 21:05 Prothrombin Time 10.2 SECONDS (9.0-12.0) Prothromb Time International Ratio 1.0 (0.9-1.1) Activated Partial Thromboplast Time 26.8 SECONDS (21.0-31.0) Partial Thromboplastin Ratio 1.0 Total Bilirubin 0.4 mg/dl (0.2-1) Direct Bilirubin < 0.1 mg/dl (0-0.2) Aspartate Amino Transf (AST/SGOT) 8 U/L (15-37) Alanine Aminotransferase (ALT/SGPT) 17 U/L (12-78) Alkaline Phosphatase 88 U/L (45-117) Total Protein 9.1 gm/dl (6.4-8.2) Albumin 3.6 gm/dl (3.4-5.0) Thyroid Stimulating Hormone (TSH) 0.955 uIu/ml (0.300-4.500) Bedside Lactic Acid Venous 1.01 mmol/L (0.90-1.70) Bedside Hemoglobin 12.9 g/dl (14.0-18.0) Bedside Hematocrit 38 % (42-52) Bedside Sodium 131 mEq/L (135-144) Bedside Potassium 7.3 mEq/L (3.3-5.0) Bedside Chloride 107 mEq/L (101-112) Bedside Total CO2 17 mEq/l (24-31) Bedside Blood Urea Nitrogen > 140 mg/dl (7-18) Bedside Creatinine 6.0 mg/dl (0.6-1.3) Bedside Glucose (other) 218 mg/dl (70-99) Bedside Ionized Calcium ([place]) 1.21 mmol/l (1.12-1.32) Urine Color YELLOW Urine Appearance TURBID (CLEAR) Urine pH 5.0 (4.5-7.5) Urine Specific [place] 1.016 (1.000-1.030) Urine Protein 1+ (NEG) Urine Glucose (UA) NEG (NEG) Urine Ketones NEG (NEG) Urine Occult Blood 3+ (NEG) Urine Nitrite NEG (NEG) Urine Bilirubin NEG (NEG) Urine Urobilinogen NEG (NEG) Urine Leukocyte Esterase LARGE (NEG) Urine WBC (Auto) >30 /hpf (0-5) Urine RBC (Auto) 10-30 /hpf (0-4) Urine Hyaline Casts (Auto) 0 /lpf (0-5) Urine Epithelial Cells (Auto) 10-20 /lpf (0-5) Urine Bacteria (Auto) NEG (NEG) Urine Pathogenic Casts /lpf (0) Test 07/17/17 01:20 07/17/17 08:39 07/17/17 18:03 07/18/17 04:36 Digoxin Level 0.7 ng/ml (0.8-2.0) Hepatitis B Surface Antigen NEG (NEG) Hepatitis B Surface Antibody POS Hepatitis B Core Total Antibody REACTIVE (NON-REACTIVE) Total Creatine Kinase 27 U/L (39-308) Creatine Kinase MB 1.6 ng/ml (0.5-3.6) Creatine Kinase MB Ratio 5.9 (0-3.0) Troponin I 0.038 ng/ml (0-0.045) Estimated Average Glucose 160 mg/dl Hemoglobin A1c 7.2 % (4.5-5.6) Test 07/19/17 05:02 07/19/17 08:09 07/21/17 05:34 07/23/17 08:48 Platelet Estimate DECREASED Lipase 778 U/L (73-393) ARELI UF Heparin Low Dose 0.1 IU/mL 1 % Release ARELI UF Heparin Low Dose 0.5 IU/mL 0 % Release ARELI Unfractionat Heparin High Dose 0 % Release ARELI Unfractionated Heparin Negative (Negative) Heparin-PF4 Antibody Screen POS (NEG) Hypersegmented Polys 1+ Toxic Granulation 1+ Immature Granulocyte % (Auto) 0.5 % White Blood Count 8.08 K/uL (4.8-10.8) Red Blood Count 3.21 M/uL (4.7-6.1) Hemoglobin 9.4 g/dL (14.0-18.0) Hematocrit 29.9 % (42-52) Mean Corpuscular Volume 93.1 fL (80-100) Mean Corpuscular Hemoglobin 29.3 pg (25-34) Mean Corpuscular Hemoglobin Concent 31.4 g/dl (32-36) Platelet Count 85 K/uL (130-400) Mean Platelet Volume 11.0 fL (7.4-10.4) Neutrophils (%) (Auto) 83.1 % Lymphocytes (%) (Auto) 7.1 % Monocytes (%) (Auto) 5.8 % Eosinophils (%) (Auto) 3.1 % Basophils (%) (Auto) 0.4 % Neutrophils # (Auto) 6.72 K/uL (1.4-6.5) Lymphocytes # (Auto) 0.57 K/uL (1.2-3.4) Monocytes # (Auto) 0.47 K/uL (0.11-0.59) Eosinophils # (Auto) 0.25 K/uL (0-0.5) Basophils # (Auto) 0.03 K/uL (0-0.2) Immature Granulocyte # (Auto) 0.04 K/uL (0.00-0.02) Test 07/26/17 05:20 07/27/17 20:18 Red Blood Count 3.13 M/uL (4.7-6.1) Mean Corpuscular Volume 95.5 fL (80-100) Mean Corpuscular Hemoglobin 29.4 pg (25-34) Mean Corpuscular Hemoglobin Concent 30.8 g/dl (32-36) RDW Standard Deviation 48.3 fL (36.4-46.3) RDW Coefficient of Variation 14.1 % (11.5-14.5) Mean Platelet Volume 10.9 fL (7.4-10.4) Anion Gap 4.0 mmol/L (3-11) Est Creatinine Clear Calc Drug Dose 21.3 ml/min Estimated GFR () 18.0 Estimated GFR (Non- 15.5 BUN/Creatinine Ratio 10.1 (10-20) Calcium Level 8.4 mg/dl (8.5-10.1) Phosphorus Level 3.8 mg/dl (2.5-4.9) Magnesium Level 2.3 mg/dl (1.8-2.4) Bedside Glucose 148 mg/dl (70-99) Date/Time Source Procedure Growth Status 07/16/17 20:04 Blood Blood Culture - Final NO GROWTH Complete 07/16/17 22:45 Nasal MRSA DNA Surveillance Screen - Final Specimen Negative for MRSA by DNA Probe Complete 07/16/17 21:05 Urine,Catheterized Urine Culture - Final MORE THAN THREE TYPES OF ORGANISMS MS... Complete Last 24 Hours Test 07/26/17 16:15 07/26/17 20:33 07/27/17 11:13 Bedside Glucose 173 mg/dl 161 mg/dl 201 mg/dl Assessment & Plan 87 yo M who presents with hyperkalemia and acute on chronic renal failure. He was admitted to the ICU and underwent temporizing measures until a HD catheter could be placed and has been receiving dialysis as inpatient since that time. He has afib w RVR and hypotension. Midodrine was added to help keep his BP up while dialyzing and removing ultrafiltrate. As his BP is improving this is being weaned down. Additionally Cardiology has added amiodarone and has been titrating his Metoprolol to help control his heart rate which is more controlled today. He is otherwise reporting no issues with pain, shortness of breath or other problems but states he is "miserable" and "disgusted." He verbalized understanding of the treatment plan. He is tolerating PO. 1. Atrial fibrillation with RVR-digoxin was stopped on admission in setting of worsening renal function. Of note, he was not on anticoagulation coming into the hospital because of hematuria on coumadin in the past. He has now been started on low dose Eliquis and is being monitored closely. Improved heart rate control with up titration of Metoprolol to 50mg PO TID. Pt has also been on an amiodarone load since 07/23 and is being monitored by Cards. 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 Management per Nephrology service-MWF dialysis schedule. Just finished HD today and is fatigued. No fluid removed but HD was difficult because they were not able to use heparin. HD in place and is clean and dry with no erythema surrounding the area. Cont PhosLo. 3. Thrombocytopenia-improved. Per Hematology, it is OK to use heparin in this case if needed and to use antiplatelets if needed. Heparin was removed from his allergy list. Will let Nephrology know this is fine for HD and will add back ASA. He has had a false positive PF4 Ab in the past and this admission and does not appear to have HIT based on two negative serotonin release assay tests. 4. Chronic congestive heart failure with EF of 40%- diuretics on hold. Management of fluid with HD at this point. Consider adding back diuretics-will discuss with Nephrology. 5. CAD status post stent placement. Stable, no symptoms at this time. Continue beta kelly, statin and added back ASA 81 based on Hematology recs. Plavix was stopped in setting of thrombocytopenia. Eliquis was started at low dose (2.5mg PO BID) while monitoring platelet count which is improved. 6. Hypotension-improved on midodrine. 7. Chronic respiratory failure secondary to COPD-Stable, no wheezing on exam. On Advair and albuterol p.r.n. Continuous supplemental oxygen. 8. BPH-recent issue with urinary retention. Wallace was placed in ER and flomax was stopped as patient had hypotension and was started on midodrine. Pt passed TOV here in the hospital and remains on finasteride 5mg PO QHS. Needs outpatient Urology follow-up. 9. Complicated UTI/prostatitis per ID team-continuing 10 days of Invanz. Wallace is out. Pt is asymptomatic. Per pharmacy, last dose is today. 10. Anemia-chronic, stable, likely multifactorial including 2/2 frequent phlebotomy and anemia of CKD as well as other chronic diseases. Cont to monitor. DVT proph-Eliquis Full Code Dispo-uncertain at this time. PT/OT needs to see him and make recs. Case Management involved with me this morning and will start the process of getting him to a SNF. Most likely will keep until the end of the week at this point. Daysi Page DO [facility] Hospitalist Consultants: [facility] Current Inpatient Medications: Current Inpatient Medications Medications (Trade) Dose Ordered Sig/Ronak Route Start Time Stop Time Status Last Admin Dose Admin Hydromorphone HCl (Dilaudid Tab) 0.5 mg Q4H PRN PO 07/16/17 21:45 07/30/17 21:44 07/19/17 04:05 0.5 MG Finasteride (Proscar Tab) 5 mg HS PO 07/17/17 21:00 08/16/17 20:59 07/26/17 21:05 5 MG Salmeterol Xinafoate/ Fluticasone (Advair Diskus 250/50 Inh) 1 puff BID INH 07/17/17 09:00 08/16/17 08:59 07/27/17 10:05 1 PUFF Gabapentin (Neurontin Cap) 300 mg HS PO 07/17/17 21:00 08/16/17 20:59 07/26/17 21:05 300 MG Nitroglycerin (Nitrostat Tab) 0.4 mg UD PRN UT 07/16/17 21:45 08/15/17 21:44 Simvastatin (Zocor Tab) 40 mg QPM PO 07/17/17 21:00 08/16/17 20:59 07/26/17 21:05 40 MG Albuterol (Ventolin Hfa Inhaler) 2 puffs Q4H PRN INH 07/16/17 21:45 08/15/17 21:44 Miscellaneous Information (Consult Glycemic Management Pharmacy) 1 ea UD PRN N/A 07/17/17 10:40 08/16/17 10:39 Insulin Aspart (novoLOG ASPART) SLIDING SCALE ACHS SC 07/18/17 16:45 08/17/17 16:44 07/27/17 12:09 7 UNITS Al Hydroxide/Mg Hydroxide (Maalox Susp) 15 ml Q6H PRN PO 07/18/17 20:45 08/17/17 20:44 Docusate Sodium (coLACE CAP) 100 mg BID PO 07/19/17 09:00 08/18/17 08:59 07/27/17 10:05 100 MG Calcium Acetate (Phoslo Cap) 667 mg TIDM PO 07/19/17 07:15 08/18/17 07:14 07/27/17 13:10 667 MG Ondansetron HCl (Zofran Inj) 4 mg Q6H PRN IV 07/19/17 17:00 08/18/17 16:59 07/19/17 17:46 4 MG Polyethylene (Miralax Powder Packet) 17 gm DAILY PO 07/20/17 09:00 08/19/17 08:59 07/27/17 07:54 17 GM Insulin Glargine (Lantus Solostar Pen) SEE PROTOCOL T... QPM SC 07/22/17 21:00 08/21/17 20:59 07/26/17 21:12 12 UNITS Amiodarone HCl (Cordarone Tab) 400 mg TIDM PO 07/23/17 11:30 08/21/17 16:44 07/27/17 13:10 400 MG Metoprolol Tartrate (Lopressor Tab) 50 mg TID PO 07/24/17 14:00 08/19/17 08:59 07/27/17 13:11 50 MG Apixaban (Eliquis Tab) 2.5 mg BID PO 07/24/17 21:00 08/23/17 20:59 07/27/17 10:04 2.5 MG Midodrine (Proamatine Tab) 5 mg TID@08,, PO 07/24/17 17:00 08/23/17 16:59 07/27/17 13:09 5 MG Aspirin (Ecotrin Tab) 81 mg QAM PO 07/27/17 09:00 08/26/17 08:59 07/27/17 10:05 81 MG
[2017-07-28] VITALS (18 sets, daily range): BP systolic 94–143; BP diastolic 60–79; PULSE 70–107; TEMP 36.4–37; O2SAT 93–99
[2017-07-28 06:20] LABS: CALCIUM 8.4 mg/dl (8.5-10.1); CREATININE 3.28 mg/dl (0.60-1.40); POTASSIUM 5.1 mmol/L (3.5-5.1)
[2017-07-28 06:21] LABS: PHOSPHORUS 3.1 mg/dl (2.5-4.9)
[2017-07-28] MEDS: CALCIUM ACETATE 667MG GELCAP PO SCH ×3 (07:24→17:09)
[2017-07-28] MEDS: MIDODRINE 2.5 MG TAB PO SCH ×3 (07:25→17:09)
[2017-07-28] MEDS: AMIODARONE 200 MG TAB PO SCH ×2 (07:26→17:09)
[2017-07-28] MEDS: INSULIN ASPART 100 UNITS/ML 3 ML PEN SC SCH ×4 (07:31→20:42)
--- NOTE | 2017-07-28 08:07 | Nephrology Progress Note ---
Nephrology Progress Note Date of Service: Jul 28, 2017. Subjective 87 yo male with ckd stage 5 who is doing much better. no specific complaints. good appetite. urinating well. bp is improving and pulse is also under better control. Objective Date Time Temp Pulse Resp B/P (MAP) Pulse Ox O2 Delivery O2 Flow Rate FiO2 07/28/17 07:18 36.6 107 27 143/73 (96) 96 Nasal Cannula 4.0 07/28/17 04:44 36.4 102 18 120/79 (93) 93 Nasal Cannula 4.0 07/28/17 04:00 Room Air 07/28/17 00:00 Room Air 07/27/17 23:51 36.7 99 21 101/66 (78) 92 Nasal Cannula 4.0 07/27/17 20:07 Nasal Cannula 3.0 07/27/17 19:42 37.1 88 24 116/67 (83) 90 Nasal Cannula 4.0 07/27/17 16:00 Nasal Cannula 3.0 07/27/17 15:37 37.0 78 24 99/61 (74) 91 Nasal Cannula 3.0 07/27/17 12:00 Nasal Cannula 3.0 07/27/17 10:46 36.5 76 27 117/76 (90) 92 Nasal Cannula 5.0 Physical Exam: General-aaox3 Eyes-no scleral icterus ENT-mmm Neck-supple Lungs-cta Heart-tachycardia Abdomen-bs+ s/nt/nd Extremities-no c/c/e Neuro-nonfocal Current Inpatient Medications Medications (Trade) Dose Ordered Sig/Ronak Route Start Time Stop Time Status Last Admin Dose Admin Hydromorphone HCl (Dilaudid Tab) 0.5 mg Q4H PRN PO 07/16/17 21:45 07/30/17 21:44 07/19/17 04:05 0.5 MG Finasteride (Proscar Tab) 5 mg HS PO 07/17/17 21:00 08/16/17 20:59 07/27/17 21:02 5 MG Salmeterol Xinafoate/ Fluticasone (Advair Diskus 250/50 Inh) 1 puff BID INH 07/17/17 09:00 08/16/17 08:59 07/27/17 21:02 1 PUFF Gabapentin (Neurontin Cap) 300 mg HS PO 07/17/17 21:00 1/17/18 20:59 07/27/17 21:02 300 MG Nitroglycerin (Nitrostat Tab) 0.4 mg UD PRN UT 07/16/17 21:45 08/15/17 21:44 Simvastatin (Zocor Tab) 40 mg QPM PO 07/17/17 21:00 08/16/17 20:59 07/27/17 21:02 40 MG Albuterol (Ventolin Hfa Inhaler) 2 puffs Q4H PRN INH 07/16/17 21:45 08/15/17 21:44 Miscellaneous Information (Consult Glycemic Management Pharmacy) 1 ea UD PRN N/A 07/17/17 10:40 08/16/17 10:39 Insulin Aspart (novoLOG ASPART) SLIDING SCALE ACHS SC 07/18/17 16:45 08/17/17 16:44 07/28/17 07:31 3 UNITS Al Hydroxide/Mg Hydroxide (Maalox Susp) 15 ml Q6H PRN PO 07/18/17 20:45 08/17/17 20:44 Docusate Sodium (coLACE CAP) 100 mg BID PO 07/19/17 09:00 08/18/17 08:59 07/27/17 21:02 100 MG Calcium Acetate (Phoslo Cap) 667 mg TIDM PO 07/19/17 07:15 08/18/17 07:14 07/28/17 07:24 667 MG Ondansetron HCl (Zofran Inj) 4 mg Q6H PRN IV 07/19/17 17:00 08/18/17 16:59 07/19/17 17:46 4 MG Polyethylene (Miralax Powder Packet) 17 gm DAILY PO 07/20/17 09:00 08/19/17 08:59 07/27/17 07:54 17 GM Insulin Glargine (Lantus Solostar Pen) SEE PROTOCOL T... QPM SC 07/22/17 21:00 08/21/17 20:59 07/27/17 21:11 14 UNITS Amiodarone HCl (Cordarone Tab) 400 mg TIDM PO 07/23/17 11:30 08/21/17 16:44 07/28/17 07:26 400 MG Metoprolol Tartrate (Lopressor Tab) 50 mg TID PO 07/24/17 14:00 08/19/17 08:59 07/27/17 21:02 50 MG Apixaban (Eliquis Tab) 2.5 mg BID PO 07/24/17 21:00 08/23/17 20:59 07/27/17 21:02 2.5 MG Aspirin (Ecotrin Tab) 81 mg QAM PO 07/27/17 09:00 08/26/17 08:59 07/27/17 10:05 81 MG Midodrine (Proamatine Tab) 2.5 mg TID@,, PO 07/27/17 17:00 08/23/17 16:59 07/28/17 07:25 2.5 MG Epoetin Alexis (Procrit Inj) 10,000 units ONE ONCE IV. 07/28/17 08:15 07/28/17 08:16 UNV Last 24 Hours Test 07/27/17 11:13 07/27/17 16:19 07/27/17 20:18 07/28/17 05:18 Bedside Glucose 201 mg/dl 125 mg/dl 148 mg/dl Sodium Level 135 mmol/L Potassium Level 5.1 mmol/L Chloride Level 103 mmol/L Carbon Dioxide Level 30 mmol/L Anion Gap 2.0 mmol/L Blood Urea Nitrogen 31 mg/dl Creatinine 3.28 mg/dl Est Creatinine Clear Calc Drug Dose 22.5 ml/min Estimated GFR () 18.8 Estimated GFR (Non- 16.3 BUN/Creatinine Ratio 9.4 Random Glucose 126 mg/dl Calcium Level 8.4 mg/dl Phosphorus Level 3.1 mg/dl Magnesium Level 2.3 mg/dl Test 07/28/17 06:44 Bedside Glucose 127 mg/dl Assessment & Plan CKD stage 5-for dialysis today. no fluid removal. labs much improved. volume status is satisfactory. no fluid removal, just dialyzing for clearance.
[2017-07-28] MEDS: FLUTICASONE/SALMETEROL 250/50 (ADVAIR) 14 PUFF/1 INHALER INH SCH ×2 (08:45→21:15)
[2017-07-28] MEDS: DOCUSATE SODIUM 100 MG CAP PO SCH ×2 (08:47→21:15)
[2017-07-28] MEDS: ASPIRIN 81 MG ECTAB PO SCH (08:49)
[2017-07-28] MEDS: METOPROLOL TARTRATE 50 MG TAB PO SCH ×3 (08:50→21:15)
[2017-07-28] MEDS: APIXABAN 2.5 MG TAB PO SCH ×2 (08:52→21:15)
[2017-07-28] MEDS: POLYETHYLENE (MIRALAX) 17 GM PACK PO SCH (08:52)
[2017-07-28] MEDS: EPOETIN ALFA 10,000 UNITS/ML VIAL IV. SCH ×3 (11:00→13:34)
--- NOTE | 2017-07-28 11:11 | Pharmacy Progress Note ---
Glycemic Control Progress Note Date of Service Jul 28, 2017. Scope Glycemic Pharmacist consulted for glycemic control to write orders per [facility] inpatient glycemic control protocol. Objective Accuchecks BSG (last 24hrs): Test 07/27/17 11:13 07/27/17 16:19 07/27/17 20:18 07/28/17 05:18 Bedside Glucose 201 mg/dl (70-99) 125 mg/dl (70-99) 148 mg/dl (70-99) Random Glucose 126 mg/dl (70-99) Test 07/28/17 06:44 Bedside Glucose 127 mg/dl (70-99) HbA1c: Test 07/18/17 04:36 Hemoglobin A1c 7.2 % (4.5-5.6) H Recent Pertinent Medications The patient is currently receiving: * Basal insulin: Lantus SQ Q HS, dosing per the following scale: 8 units if less than 110; 14 units if 110 or greater * Correctional Insulin: Novolog Correction per scale ACHS Goal Range: Low 120 mg/dL - High 160 mg/dL Correction Factor: 30 mg/dL/unit * Prandial insulin: Per carb ratio of 1 unit per 10 grams CHO consumed Outpatient Anti-Diabetic Meds Reported to be Lantus 50 units SQ BID Assessment & Plan ASSESSMENT: 07/26/17 * BSGs still relatively well controlled with current regimen. * There was one elevated BSG last evening, post-prandially - however this was a deviation from the current trend, therefore will not react yet * Fasting BSG at goal w/ current Lantus dose, however fasting had been mildly elevated the last several days, therefore a small dose increase would likely be tolerated well 07/27/17 * BSGs well controlled yesterday, BSGs ranged 129-173 throughout the day; pre- lunch BSG missing yesterday - likely was not checked while at HD * Fasting BSG result not available today. Recorded as 161 by RN this AM however this was the HS BSG last night * If BSG was 161 this AM she is basal deficient. BSGs are trending higher over the last 24 hrs and this is following a HD session. I am inclined to continue to increase her basal insulin dose as a result. 07/28/17 * Fasting BSG 127 this AM with 14 units Lantus on board. FBS at goal. Overall BSG control has been good and would refrain from further titrating the basal up today as the dose has been increased daily x 2 days. * Post-prandial BSGs all at goal with the exception of pre-lunch BSG however this may have been secondary to not receiving carb coverage w/ breakfast in the AM yesterday. Overall the current CF and CF have performed well. * HD is planned PLAN FOR INPATIENT GLYCEMIC CONTROL: * Continue Lantus SQ HS : 8 units if BSG less than 110; 14 units if BSG 110 or greater * Continuing correction factor of 30 mg/dl/unit * Continuing carb ratio of 1 unit per 10 grams CHO consumed * Continue goal range of Low 120 mg/dL - High 160 mg/dL RECOMMENDATIONS FOR DISCHARGE: * Patient is requiring substantially less insulin at this time * Outpatient dose of Lantus will require reduction as she is currently only requiring ~14 units of Lantus per day * Please note that the plan above was derived based on current level of insulin resistance and hospital stress. These recommendations are appropriate for inpatient admission only. Plan of care upon discharge will need to be reassessed to avoid potential outpatient hypo/hyperglycemia. Thank you.
--- NOTE | 2017-07-28 18:23 | Progress Note ---
Medicine Progress Note Date & Time of Visit: Jul 28, 2017 at 1000. Subjective 87 yo M who presents with hyperkalemia and acute on chronic renal failure. He was admitted to the ICU and underwent temporizing measures until a HD catheter could be placed and has been receiving dialysis as inpatient since that time. He has afib w RVR and hypotension. Midodrine was added to help keep his BP up while dialyzing and removing ultrafiltrate. As his BP is improving this is being weaned down. Additionally Cardiology has added amiodarone and has been titrating his Metoprolol to help control his heart rate which is more controlled today. He is otherwise reporting no issues with pain, shortness of breath or other problems. Tolerating PO. Currently undergoing HD. Objective Last 8 Hrs Date Time Temp Pulse Resp B/P (MAP) Pulse Ox O2 Delivery O2 Flow Rate FiO2 07/28/17 16:00 Nasal Cannula 3.0 07/28/17 15:34 36.9 70 18 105/60 (75) 99 07/28/17 13:15 Nasal Cannula 3.0 07/28/17 12:40 36.9 104 96/68 (77) 07/28/17 12:30 104 105/69 07/28/17 12:15 104 94/66 07/28/17 12:00 104 106/71 07/28/17 11:45 98 106/73 07/28/17 11:30 103 108/70 07/28/17 11:15 105 104/69 07/28/17 11:00 84 106/67 07/28/17 10:45 73 107/67 07/28/17 10:30 104 105/71 Physical Exam: GEN: obese, in no acute distress, alert and appropriate, appears deconditioned HEENT: NC/AT, pupils are equal and round bilaterally, normal sclerae, MMM. CARDIO: reg rate, S1/2 heard without m/g/r CHEST: tunnelled HD catheter in place LUNGS: CTA bilaterally, no crackles, rales or wheezes, good diaphragmatic excursion ABD: soft, non-tender, non-distended, no rebound or guarding, +BS EXTREMITY: RP and DP palpable 2+ bilat, no LE swelling or edema, extremities are warm and well-perfused NEURO: CN 2-12 grossly intact, no gross focal deficits. MUSC: moves all extremities equally, no gross focal deficits but appears very deconditioned in general SKIN: warm and dry Laboratory Results: 07/26/17 05:20 07/28/17 05:18 Test 07/16/17 18:46 07/16/17 20:15 07/16/17 20:17 07/16/17 21:05 Prothrombin Time 10.2 SECONDS (9.0-12.0) Prothromb Time International Ratio 1.0 (0.9-1.1) Activated Partial Thromboplast Time 26.8 SECONDS (21.0-31.0) Partial Thromboplastin Ratio 1.0 Total Bilirubin 0.4 mg/dl (0.2-1) Direct Bilirubin < 0.1 mg/dl (0-0.2) Aspartate Amino Transf (AST/SGOT) 8 U/L (15-37) Alanine Aminotransferase (ALT/SGPT) 17 U/L (12-78) Alkaline Phosphatase 88 U/L (45-117) Total Protein 9.1 gm/dl (6.4-8.2) Albumin 3.6 gm/dl (3.4-5.0) Thyroid Stimulating Hormone (TSH) 0.955 uIu/ml (0.300-4.500) Bedside Lactic Acid Venous 1.01 mmol/L (0.90-1.70) Bedside Hemoglobin 12.9 g/dl (14.0-18.0) Bedside Hematocrit 38 % (42-52) Bedside Sodium 131 mEq/L (135-144) Bedside Potassium 7.3 mEq/L (3.3-5.0) Bedside Chloride 107 mEq/L (101-112) Bedside Total CO2 17 mEq/l (24-31) Bedside Blood Urea Nitrogen > 140 mg/dl (7-18) Bedside Creatinine 6.0 mg/dl (0.6-1.3) Bedside Glucose (other) 218 mg/dl (70-99) Bedside Ionized Calcium (Germán) 1.21 mmol/l (1.12-1.32) Urine Color YELLOW Urine Appearance TURBID (CLEAR) Urine pH 5.0 (4.5-7.5) Urine Specific Bliss 1.016 (1.000-1.030) Urine Protein 1+ (NEG) Urine Glucose (UA) NEG (NEG) Urine Ketones NEG (NEG) Urine Occult Blood 3+ (NEG) Urine Nitrite NEG (NEG) Urine Bilirubin NEG (NEG) Urine Urobilinogen NEG (NEG) Urine Leukocyte Esterase LARGE (NEG) Urine WBC (Auto) >30 /hpf (0-5) Urine RBC (Auto) 10-30 /hpf (0-4) Urine Hyaline Casts (Auto) 0 /lpf (0-5) Urine Epithelial Cells (Auto) 10-20 /lpf (0-5) Urine Bacteria (Auto) NEG (NEG) Urine Pathogenic Casts /lpf (0) Test 07/17/17 01:20 07/17/17 08:39 07/17/17 18:03 07/18/17 04:36 Digoxin Level 0.7 ng/ml (0.8-2.0) Hepatitis B Surface Antigen NEG (NEG) Hepatitis B Surface Antibody POS Hepatitis B Core Total Antibody REACTIVE (NON-REACTIVE) Total Creatine Kinase 27 U/L (39-308) Creatine Kinase MB 1.6 ng/ml (0.5-3.6) Creatine Kinase MB Ratio 5.9 (0-3.0) Troponin I 0.038 ng/ml (0-0.045) Estimated Average Glucose 160 mg/dl Hemoglobin A1c 7.2 % (4.5-5.6) Test 07/19/17 05:02 07/19/17 08:09 07/21/17 05:34 07/23/17 08:48 Platelet Estimate DECREASED Lipase 778 U/L (73-393) ARELI UF Heparin Low Dose 0.1 IU/mL 1 % Release ARELI UF Heparin Low Dose 0.5 IU/mL 0 % Release ARELI Unfractionat Heparin High Dose 0 % Release ARELI Unfractionated Heparin Negative (Negative) Heparin-PF4 Antibody Screen POS (NEG) Hypersegmented Polys 1+ Toxic Granulation 1+ Immature Granulocyte % (Auto) 0.5 % White Blood Count 8.08 K/uL (4.8-10.8) Red Blood Count 3.21 M/uL (4.7-6.1) Hemoglobin 9.4 g/dL (14.0-18.0) Hematocrit 29.9 % (42-52) Mean Corpuscular Volume 93.1 fL (80-100) Mean Corpuscular Hemoglobin 29.3 pg (25-34) Mean Corpuscular Hemoglobin Concent 31.4 g/dl (32-36) Platelet Count 85 K/uL (130-400) Mean Platelet Volume 11.0 fL (7.4-10.4) Neutrophils (%) (Auto) 83.1 % Lymphocytes (%) (Auto) 7.1 % Monocytes (%) (Auto) 5.8 % Eosinophils (%) (Auto) 3.1 % Basophils (%) (Auto) 0.4 % Neutrophils # (Auto) 6.72 K/uL (1.4-6.5) Lymphocytes # (Auto) 0.57 K/uL (1.2-3.4) Monocytes # (Auto) 0.47 K/uL (0.11-0.59) Eosinophils # (Auto) 0.25 K/uL (0-0.5) Basophils # (Auto) 0.03 K/uL (0-0.2) Immature Granulocyte # (Auto) 0.04 K/uL (0.00-0.02) Test 07/26/17 05:20 07/28/17 05:18 07/28/17 16:04 Red Blood Count 3.13 M/uL (4.7-6.1) Mean Corpuscular Volume 95.5 fL (80-100) Mean Corpuscular Hemoglobin 29.4 pg (25-34) Mean Corpuscular Hemoglobin Concent 30.8 g/dl (32-36) RDW Standard Deviation 48.3 fL (36.4-46.3) RDW Coefficient of Variation 14.1 % (11.5-14.5) Mean Platelet Volume 10.9 fL (7.4-10.4) Anion Gap 2.0 mmol/L (3-11) Est Creatinine Clear Calc Drug Dose 22.5 ml/min Estimated GFR () 18.8 Estimated GFR (Non- 16.3 BUN/Creatinine Ratio 9.4 (10-20) Calcium Level 8.4 mg/dl (8.5-10.1) Phosphorus Level 3.1 mg/dl (2.5-4.9) Magnesium Level 2.3 mg/dl (1.8-2.4) Bedside Glucose 140 mg/dl (70-99) Date/Time Source Procedure Growth Status 07/16/17 20:04 Blood Blood Culture - Final NO GROWTH Complete 07/16/17 22:45 Nasal MRSA DNA Surveillance Screen - Final Specimen Negative for MRSA by DNA Probe Complete 07/16/17 21:05 Urine,Catheterized Urine Culture - Final MORE THAN THREE TYPES OF ORGANISMS SD... Complete Last 24 Hours Test 07/27/17 20:18 07/28/17 05:18 07/28/17 06:44 07/28/17 13:23 Bedside Glucose 148 mg/dl 127 mg/dl 170 mg/dl Sodium Level 135 mmol/L Potassium Level 5.1 mmol/L Chloride Level 103 mmol/L Carbon Dioxide Level 30 mmol/L Anion Gap 2.0 mmol/L Blood Urea Nitrogen 31 mg/dl Creatinine 3.28 mg/dl Est Creatinine Clear Calc Drug Dose 22.5 ml/min Estimated GFR () 18.8 Estimated GFR (Non- 16.3 BUN/Creatinine Ratio 9.4 Random Glucose 126 mg/dl Calcium Level 8.4 mg/dl Phosphorus Level 3.1 mg/dl Magnesium Level 2.3 mg/dl Test 07/28/17 16:04 Bedside Glucose 140 mg/dl Assessment & Plan 87 yo M who presents with hyperkalemia and acute on chronic renal failure. He was admitted to the ICU and underwent temporizing measures until a HD catheter could be placed and has been receiving dialysis as inpatient since that time. He has afib w RVR and hypotension. Midodrine was added to help keep his BP up while dialyzing and removing ultrafiltrate. As his BP is improving this is being weaned down. Additionally Cardiology has added amiodarone and has been titrating his Metoprolol to help control his heart rate which is more controlled today. He is otherwise reporting no issues with pain, shortness of breath or other problems. Tolerating PO. Currently undergoing HD. 1. Atrial fibrillation with RVR-digoxin was stopped on admission in setting of worsening renal function. Of note, he was not on anticoagulation coming into the hospital because of hematuria on coumadin in the past. He has now been started on renally dosed Eliquis and is being monitored closely. Improved heart rate control with up titration of Metoprolol to 50mg PO TID. Pt has also been on an amiodarone load since 07/23 and is being monitored by Cards. Continues in a flutter rhythm--ultimate disposition per Cardiology regarding cardioversion and further medical treatment. 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 Management per Nephrology service-MWF dialysis schedule. Per Nephro. 3. Thrombocytopenia-improved. Per Hematology, it is OK to use heparin in this case if needed and to use antiplatelets if needed. Heparin was removed from his allergy list. Will let Nephrology know this is fine for HD and ASA was added back. He has had a false positive PF4 Ab in the past and this admission and does not appear to have HIT based on two negative serotonin release assay tests. 4. Chronic congestive heart failure with EF of 40%- diuretics on hold. No fluid removal during dialysis as volume status is appropriate. Cont holding diuretics. HD for fluid management as needed. 5. CAD status post stent placement. Stable, no symptoms at this time. Continue beta kelly, statin and added back ASA 81 based on Hematology recs. Plavix was stopped in setting of thrombocytopenia. Eliquis was started at renal dose (2.5mg PO BID) while monitoring platelet count which is improved. 6. Hypotension-improved on midodrine which was reduced by Cards. 7. Chronic respiratory failure secondary to COPD-Stable, no wheezing on exam. On Advair and albuterol p.r.n. Continuous supplemental oxygen. 8. BPH-recent issue with urinary retention. Wallace was placed in ER and flomax was stopped as patient had hypotension and was started on midodrine. Pt passed TOV here in the hospital and remains on finasteride 5mg PO QHS. Needs outpatient Urology follow-up. 9. Complicated UTI/prostatitis per ID team-continuing 10 days of Invanz. Wallace is out. Pt is asymptomatic. Per pharmacy, last dose is today. 10. Anemia-chronic, stable, likely multifactorial including 2/2 frequent phlebotomy and anemia of CKD as well as other chronic diseases. Cont to monitor. DVT proph-Eliquis Full Code Dispo-uncertain at this time. Daysi Page DO [facility] Hospitalist Consultants: Nephro-Oncu Tyson Current Inpatient Medications: Current Inpatient Medications Medications (Trade) Dose Ordered Sig/Ronak Route Start Time Stop Time Status Last Admin Dose Admin Hydromorphone HCl (Dilaudid Tab) 0.5 mg Q4H PRN PO 07/16/17 21:45 07/30/17 21:44 07/19/17 04:05 0.5 MG Finasteride (Proscar Tab) 5 mg HS PO 07/17/17 21:00 08/16/17 20:59 07/27/17 21:02 5 MG Salmeterol Xinafoate/ Fluticasone (Advair Diskus 250/50 Inh) 1 puff BID INH 07/17/17 09:00 08/16/17 08:59 07/28/17 08:45 1 PUFF Gabapentin (Neurontin Cap) 300 mg HS PO 07/17/17 21:00 08/16/17 20:59 07/27/17 21:02 300 MG Nitroglycerin (Nitrostat Tab) 0.4 mg UD PRN UT 07/16/17 21:45 08/15/17 21:44 Simvastatin (Zocor Tab) 40 mg QPM PO 07/17/17 21:00 08/16/17 20:59 07/27/17 21:02 40 MG Albuterol (Ventolin Hfa Inhaler) 2 puffs Q4H PRN INH 07/16/17 21:45 08/15/17 21:44 Miscellaneous Information (Consult Glycemic Management Pharmacy) 1 ea UD PRN N/A 07/17/17 10:40 08/16/17 10:39 Insulin Aspart (novoLOG ASPART) SLIDING SCALE ACHS SC 07/18/17 16:45 08/17/17 16:44 07/28/17 13:28 4 UNITS Al Hydroxide/Mg Hydroxide (Maalox Susp) 15 ml Q6H PRN PO 07/18/17 20:45 08/17/17 20:44 Docusate Sodium (coLACE CAP) 100 mg BID PO 07/19/17 09:00 08/18/17 08:59 07/28/17 08:47 100 MG Calcium Acetate (Phoslo Cap) 667 mg TIDM PO 07/19/17 07:15 08/18/17 07:14 07/28/17 17:09 667 MG Ondansetron HCl (Zofran Inj) 4 mg Q6H PRN IV 07/19/17 17:00 08/18/17 16:59 07/19/17 17:46 4 MG Polyethylene (Miralax Powder Packet) 17 gm DAILY PO 07/20/17 09:00 08/19/17 08:59 07/27/17 07:54 17 GM Insulin Glargine (Lantus Solostar Pen) SEE PROTOCOL T... QPM SC 07/22/17 21:00 08/21/17 20:59 07/27/17 21:11 14 UNITS Metoprolol Tartrate (Lopressor Tab) 50 mg TID PO 07/24/17 14:00 08/19/17 08:59 07/28/17 13:32 50 MG Apixaban (Eliquis Tab) 2.5 mg BID PO 07/24/17 21:00 08/23/17 20:59 07/28/17 08:52 2.5 MG Aspirin (Ecotrin Tab) 81 mg QAM PO 07/27/17 09:00 08/26/17 08:59 07/28/17 08:49 81 MG Midodrine (Proamatine Tab) 2.5 mg TID@, PO 07/27/17 17:00 08/23/17 16:59 07/28/17 17:09 2.5 MG Epoetin Alexis (Procrit Inj) 10,000 units TODAY@0830 IV. 07/28/17 08:30 07/28/17 23:59 07/28/17 13:34 10,000 UNITS Amiodarone HCl (Cordarone Tab) 400 mg BIDM PO 07/28/17 16:45 08/21/17 16:44 07/28/17 17:09 400 MG
[2017-07-28] MEDS: GABAPENTIN 300 MG CAP PO SCH (21:15)
[2017-07-28] MEDS: SIMVASTATIN 40 MG TAB PO SCH (21:15)
[2017-07-28] MEDS: FINASTERIDE 5 MG TAB PO SCH (21:15)
[2017-07-28] MEDS: INSULIN GLARGINE SOLOSTAR 100 UNITS/ML 3 ML PEN SC SCH (21:18)
[2017-07-29] VITALS (8 sets, daily range): BP systolic 94–119; BP diastolic 59–77; PULSE 76–106; TEMP 36.5–36.9; O2SAT 90–95
[2017-07-29] MEDS: MIDODRINE 2.5 MG TAB PO SCH ×3 (08:26→17:03)
[2017-07-29] MEDS: APIXABAN 2.5 MG TAB PO SCH ×2 (08:27→20:44)
[2017-07-29] MEDS: AMIODARONE 200 MG TAB PO SCH ×2 (08:27→17:03)
[2017-07-29] MEDS: METOPROLOL TARTRATE 50 MG TAB PO SCH ×2 (08:27→14:55)
[2017-07-29] MEDS: FLUTICASONE/SALMETEROL 250/50 (ADVAIR) 14 PUFF/1 INHALER INH SCH ×2 (08:28→20:45)
[2017-07-29] MEDS: ASPIRIN 81 MG ECTAB PO SCH (08:28)
[2017-07-29] MEDS: CALCIUM ACETATE 667MG GELCAP PO SCH ×3 (08:28→17:03)
[2017-07-29] MEDS: DOCUSATE SODIUM 100 MG CAP PO SCH ×2 (08:28→20:45)
[2017-07-29] MEDS: POLYETHYLENE (MIRALAX) 17 GM PACK PO SCH (08:29)
[2017-07-29] MEDS: INSULIN ASPART 100 UNITS/ML 3 ML PEN SC SCH ×4 (08:31→20:47)
--- NOTE | 2017-07-29 17:55 | Cardiology Progress Note ---
Cardiology Progress Note Date of Service Jul 29, 2017. Cardiology Progress Note Atrial flutter present on telemetry, rates of been better controlled in the 80 beat per minute range yesterday, but her elevated in the 100 -110 beat per minute range at present. Increase metoprolol from 50 mg 3 times a day to 100 mg twice a day. Continue amiodarone 40 mg 3 times a day with meals. Continue low-dose for stroke prophylaxis. At some point, direct-current cardioversion may be necessary would either require transesophageal echocardiogram guidance we would be to wait until his been on appropriate anticoagulation for 3-4 weeks.
[2017-07-29] MEDS: FINASTERIDE 5 MG TAB PO SCH (20:44)
[2017-07-29] MEDS: METOPROLOL TARTRATE 100 MG TAB PO SCH (20:44)
[2017-07-29] MEDS: SIMVASTATIN 40 MG TAB PO SCH (20:44)
[2017-07-29] MEDS: GABAPENTIN 300 MG CAP PO SCH (20:45)
[2017-07-29] MEDS: INSULIN GLARGINE SOLOSTAR 100 UNITS/ML 3 ML PEN SC SCH (20:48)
--- NOTE | 2017-07-29 23:49 | Progress Note ---
Medicine Progress Note Date & Time of Visit: Jul 29, 2017 at 15:45. Subjective 87 yo M who presents with hyperkalemia and acute on chronic renal failure. He was admitted to the ICU and underwent temporizing measures until a HD catheter could be placed and has been receiving dialysis as inpatient since that time. He has afib w RVR and hypotension. Midodrine was added to help keep his BP up while dialyzing and removing ultrafiltrate. As his BP is improving this is being weaned down. Additionally Cardiology has added amiodarone and has been titrating his Metoprolol to help control his heart rate which is more controlled today. He is otherwise reporting no issues with pain, shortness of breath or other problems. Tolerating PO. Was sleeping when I arrived for this exam and reported some dizziness "because I'm tired and I need to sleep." Objective Last 8 Hrs Date Time Temp Pulse Resp B/P (MAP) Pulse Ox O2 Delivery O2 Flow Rate FiO2 07/29/17 12:15 36.6 99 18 108/60 (76) 91 Nasal Cannula 4.0 07/29/17 12:00 Nasal Cannula 3.0 07/29/17 08:00 Nasal Cannula 3.0 Physical Exam: GEN: obese, in no acute distress, fatigued but easily wakes up and answers questions appropriately, appears deconditioned HEENT: NC/AT, pupils are equal and round bilaterally, normal sclerae, MMM. CARDIO: reg rate, S1/2 heard without m/g/r CHEST: tunneled HD catheter in place LUNGS: CTA bilaterally, no crackles, rales or wheezes, good diaphragmatic excursion ABD: soft, non-tender, non-distended, no rebound or guarding, +BS EXTREMITY: RP and DP palpable 2+ bilat, no LE swelling or edema, extremities are warm and well-perfused NEURO: CN 2-12 grossly intact, no gross focal deficits. MUSC: moves all extremities equally, no gross focal deficits but appears very deconditioned in general SKIN: warm and dry Laboratory Results: 07/26/17 05:20 07/28/17 05:18 Test 07/16/17 18:46 07/16/17 20:15 07/16/17 20:17 07/16/17 21:05 Prothrombin Time 10.2 SECONDS (9.0-12.0) Prothromb Time International Ratio 1.0 (0.9-1.1) Activated Partial Thromboplast Time 26.8 SECONDS (21.0-31.0) Partial Thromboplastin Ratio 1.0 Total Bilirubin 0.4 mg/dl (0.2-1) Direct Bilirubin < 0.1 mg/dl (0-0.2) Aspartate Amino Transf (AST/SGOT) 8 U/L (15-37) Alanine Aminotransferase (ALT/SGPT) 17 U/L (12-78) Alkaline Phosphatase 88 U/L (45-117) Total Protein 9.1 gm/dl (6.4-8.2) Albumin 3.6 gm/dl (3.4-5.0) Thyroid Stimulating Hormone (TSH) 0.955 uIu/ml (0.300-4.500) Bedside Lactic Acid Venous 1.01 mmol/L (0.90-1.70) Bedside Hemoglobin 12.9 g/dl (14.0-18.0) Bedside Hematocrit 38 % (42-52) Bedside Sodium 131 mEq/L (135-144) Bedside Potassium 7.3 mEq/L (3.3-5.0) Bedside Chloride 107 mEq/L (101-112) Bedside Total CO2 17 mEq/l (24-31) Bedside Blood Urea Nitrogen > 140 mg/dl (7-18) Bedside Creatinine 6.0 mg/dl (0.6-1.3) Bedside Glucose (other) 218 mg/dl (70-99) Bedside Ionized Calcium ([place]) 1.21 mmol/l (1.12-1.32) Urine Color YELLOW Urine Appearance TURBID (CLEAR) Urine pH 5.0 (4.5-7.5) Urine Specific [place] 1.016 (1.000-1.030) Urine Protein 1+ (NEG) Urine Glucose (UA) NEG (NEG) Urine Ketones NEG (NEG) Urine Occult Blood 3+ (NEG) Urine Nitrite NEG (NEG) Urine Bilirubin NEG (NEG) Urine Urobilinogen NEG (NEG) Urine Leukocyte Esterase LARGE (NEG) Urine WBC (Auto) >30 /hpf (0-5) Urine RBC (Auto) 10-30 /hpf (0-4) Urine Hyaline Casts (Auto) 0 /lpf (0-5) Urine Epithelial Cells (Auto) 10-20 /lpf (0-5) Urine Bacteria (Auto) NEG (NEG) Urine Pathogenic Casts /lpf (0) Test 07/17/17 01:20 07/17/17 08:39 07/17/17 18:03 07/18/17 04:36 Digoxin Level 0.7 ng/ml (0.8-2.0) Hepatitis B Surface Antigen NEG (NEG) Hepatitis B Surface Antibody POS Hepatitis B Core Total Antibody REACTIVE (NON-REACTIVE) Total Creatine Kinase 27 U/L (39-308) Creatine Kinase MB 1.6 ng/ml (0.5-3.6) Creatine Kinase MB Ratio 5.9 (0-3.0) Troponin I 0.038 ng/ml (0-0.045) Estimated Average Glucose 160 mg/dl Hemoglobin A1c 7.2 % (4.5-5.6) Test 07/19/17 05:02 07/19/17 08:09 07/21/17 05:34 07/23/17 08:48 Platelet Estimate DECREASED Lipase 778 U/L (73-393) ARELI UF Heparin Low Dose 0.1 IU/mL 1 % Release ARELI UF Heparin Low Dose 0.5 IU/mL 0 % Release ARELI Unfractionat Heparin High Dose 0 % Release ARELI Unfractionated Heparin Negative (Negative) Heparin-PF4 Antibody Screen POS (NEG) Hypersegmented Polys 1+ Toxic Granulation 1+ Immature Granulocyte % (Auto) 0.5 % White Blood Count 8.08 K/uL (4.8-10.8) Red Blood Count 3.21 M/uL (4.7-6.1) Hemoglobin 9.4 g/dL (14.0-18.0) Hematocrit 29.9 % (42-52) Mean Corpuscular Volume 93.1 fL (80-100) Mean Corpuscular Hemoglobin 29.3 pg (25-34) Mean Corpuscular Hemoglobin Concent 31.4 g/dl (32-36) Platelet Count 85 K/uL (130-400) Mean Platelet Volume 11.0 fL (7.4-10.4) Neutrophils (%) (Auto) 83.1 % Lymphocytes (%) (Auto) 7.1 % Monocytes (%) (Auto) 5.8 % Eosinophils (%) (Auto) 3.1 % Basophils (%) (Auto) 0.4 % Neutrophils # (Auto) 6.72 K/uL (1.4-6.5) Lymphocytes # (Auto) 0.57 K/uL (1.2-3.4) Monocytes # (Auto) 0.47 K/uL (0.11-0.59) Eosinophils # (Auto) 0.25 K/uL (0-0.5) Basophils # (Auto) 0.03 K/uL (0-0.2) Immature Granulocyte # (Auto) 0.04 K/uL (0.00-0.02) Test 07/26/17 05:20 07/28/17 05:18 07/29/17 21:15 Red Blood Count 3.13 M/uL (4.7-6.1) Mean Corpuscular Volume 95.5 fL (80-100) Mean Corpuscular Hemoglobin 29.4 pg (25-34) Mean Corpuscular Hemoglobin Concent 30.8 g/dl (32-36) RDW Standard Deviation 48.3 fL (36.4-46.3) RDW Coefficient of Variation 14.1 % (11.5-14.5) Mean Platelet Volume 10.9 fL (7.4-10.4) Anion Gap 2.0 mmol/L (3-11) Est Creatinine Clear Calc Drug Dose 22.5 ml/min Estimated GFR () 18.8 Estimated GFR (Non- 16.3 BUN/Creatinine Ratio 9.4 (10-20) Calcium Level 8.4 mg/dl (8.5-10.1) Phosphorus Level 3.1 mg/dl (2.5-4.9) Magnesium Level 2.3 mg/dl (1.8-2.4) Bedside Glucose 211 mg/dl (70-99) Date/Time Source Procedure Growth Status 07/16/17 20:04 Blood Blood Culture - Final NO GROWTH Complete 07/16/17 22:45 Nasal MRSA DNA Surveillance Screen - Final Specimen Negative for MRSA by DNA Probe Complete 07/16/17 21:05 Urine,Catheterized Urine Culture - Final MORE THAN THREE TYPES OF ORGANISMS FL... Complete Last 24 Hours Test 07/28/17 16:04 07/28/17 20:23 07/29/17 07:14 07/29/17 11:05 Bedside Glucose 140 mg/dl 146 mg/dl 108 mg/dl 212 mg/dl Assessment & Plan 87 yo M who presents with hyperkalemia and acute on chronic renal failure. He was admitted to the ICU and underwent temporizing measures until a HD catheter could be placed and has been receiving dialysis as inpatient since that time. He has afib w RVR and hypotension. Midodrine was added to help keep his BP up while dialyzing and removing ultrafiltrate. As his BP is improving this is being weaned down. Additionally Cardiology has added amiodarone and has been titrating his Metoprolol to help control his heart rate which is more controlled today. He is otherwise reporting no issues with pain, shortness of breath or other problems. Tolerating PO. Was sleeping when I arrived for this exam and reported some dizziness "because I'm tired and I need to sleep." 1. Atrial fibrillation with RVR-digoxin was stopped on admission in setting of worsening renal function. Of note, he was not on anticoagulation coming into the hospital because of hematuria on coumadin in the past. He has now been started on renally dosed Eliquis and is being monitored closely. Improved heart rate control with up titration of Metoprolol to 50mg PO TID. Further titration tonight per Cards. Pt has also been on an amiodarone load since 07/23 and is being monitored by Cards. Continues in a flutter rhythm-will likely follow-up as outpatient for consideration of DCCV in a couple of weeks after appropriate anticoagulation. 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 Management per Nephrology service-MWF dialysis schedule. Per Nephro. 3. Thrombocytopenia-improved. Per Hematology, it is OK to use heparin in this case if needed and to use antiplatelets if needed. Heparin was removed from his allergy list. Will let Nephrology know this is fine for HD and ASA was added back. He has had a false positive PF4 Ab in the past and this admission and does not appear to have HIT based on two negative serotonin release assay tests. 4. Chronic congestive heart failure with EF of 40%- diuretics on hold. No fluid removal during dialysis as volume status is appropriate. Cont holding diuretics. HD for fluid management as needed. 5. CAD status post stent placement. Stable, no symptoms at this time. Continue beta kelly, statin and added back ASA 81 based on Hematology recs. Plavix was stopped in setting of thrombocytopenia. Eliquis was started at renal dose (2.5mg PO BID) while monitoring platelet count which is improved. 6. Hypotension-improved on midodrine which was reduced by Cards. 7. Chronic respiratory failure secondary to COPD-Stable, no wheezing on exam. On Advair and albuterol p.r.n. Continuous supplemental oxygen. 8. BPH-recent issue with urinary retention. Wallace was placed in ER and flomax was stopped as patient had hypotension and was started on midodrine. Pt passed TOV here in the hospital and remains on finasteride 5mg PO QHS. Needs outpatient Urology follow-up. 9. Complicated UTI/prostatitis per ID team-continuing 10 days of Invanz. Wallace is out. Pt is asymptomatic. Per pharmacy, last dose is today. 10. Anemia-chronic, stable, likely multifactorial including 2/2 frequent phlebotomy and anemia of CKD as well as other chronic diseases. Cont to monitor. 11. DMII-controlled on ISS/glargine. Appreciate pharmacy assistance with management. DVT proph-Eliquis Full Code Dispo-to rehab when bed available. Daysi Page DO [facility] Hospitalist Consultants: Nephro-On[facility] Current Inpatient Medications: Current Inpatient Medications Medications (Trade) Dose Ordered Sig/Ronak Route Start Time Stop Time Status Last Admin Dose Admin Hydromorphone HCl (Dilaudid Tab) 0.5 mg Q4H PRN PO 07/16/17 21:45 07/30/17 21:44 07/19/17 04:05 0.5 MG Finasteride (Proscar Tab) 5 mg HS PO 07/17/17 21:00 08/16/17 20:59 07/28/17 21:15 5 MG Salmeterol Xinafoate/ Fluticasone (Advair Diskus 250/50 Inh) 1 puff BID INH 07/17/17 09:00 08/16/17 08:59 07/29/17 08:28 1 PUFF Gabapentin (Neurontin Cap) 300 mg HS PO 07/17/17 21:00 08/16/17 20:59 07/28/17 21:15 300 MG Nitroglycerin (Nitrostat Tab) 0.4 mg UD PRN UT 07/16/17 21:45 08/15/17 21:44 Simvastatin (Zocor Tab) 40 mg QPM PO 07/17/17 21:00 08/16/17 20:59 07/28/17 21:15 40 MG Albuterol (Ventolin Hfa Inhaler) 2 puffs Q4H PRN INH 07/16/17 21:45 08/15/17 21:44 Miscellaneous Information (Consult Glycemic Management Pharmacy) 1 ea UD PRN N/A 07/17/17 10:40 08/16/17 10:39 Insulin Aspart (novoLOG ASPART) SLIDING SCALE ACHS SC 07/18/17 16:45 08/17/17 16:44 07/29/17 11:47 5 UNITS Al Hydroxide/Mg Hydroxide (Maalox Susp) 15 ml Q6H PRN PO 07/18/17 20:45 08/17/17 20:44 Docusate Sodium (coLACE CAP) 100 mg BID PO 07/19/17 09:00 08/18/17 08:59 07/29/17 08:28 100 MG Calcium Acetate (Phoslo Cap) 667 mg TIDM PO 07/19/17 07:15 08/18/17 07:14 07/29/17 11:43 667 MG Ondansetron HCl (Zofran Inj) 4 mg Q6H PRN IV 07/19/17 17:00 08/18/17 16:59 07/19/17 17:46 4 MG Polyethylene (Miralax Powder Packet) 17 gm DAILY PO 07/20/17 09:00 08/19/17 08:59 07/29/17 08:29 17 GM Insulin Glargine (Lantus Solostar Pen) SEE PROTOCOL T... QPM SC 07/22/17 21:00 08/21/17 20:59 07/28/17 21:18 14 UNITS Metoprolol Tartrate (Lopressor Tab) 50 mg TID PO 07/24/17 14:00 08/19/17 08:59 07/29/17 14:55 50 MG Apixaban (Eliquis Tab) 2.5 mg BID PO 07/24/17 21:00 08/23/17 20:59 07/29/17 08:27 2.5 MG Aspirin (Ecotrin Tab) 81 mg QAM PO 07/27/17 09:00 08/26/17 08:59 07/29/17 08:28 81 MG Midodrine (Proamatine Tab) 2.5 mg TID@,, PO 07/27/17 17:00 08/23/17 16:59 07/29/17 11:43 2.5 MG Amiodarone HCl (Cordarone Tab) 400 mg BIDM PO 07/28/17 16:45 08/21/17 16:44 07/29/17 08:27 400 MG
[2017-07-30] VITALS (21 sets, daily range): BP systolic 78–117; BP diastolic 53–73; PULSE 71–107; TEMP 36.5–37.2; O2SAT 88–97
[2017-07-30 05:51] LABS: HEMATOCRIT 28.9 % (42-52); HEMOGLOBIN 8.8 g/dL (14.0-18.0); MEAN CELL VOLUME 96.3 fL (80-100); MEAN CORPUSCULAR HEMOGLOBIN 29.3 pg (25-34); MEAN CORPUSCULAR HGB CONC 30.4 g/dl (32-36); MEAN PLATELET VOLUME 10.9 fL (7.4-10.4); PLATELET COUNT 157 K/uL (130-400); RED CELL DISTRIBUTION WIDTH CV 14.2 % (11.5-14.5); RED CELL DISTRIBUTION WIDTH SD 49.5 fL (36.4-46.3); WHITE BLOOD COUNT 7.23 K/uL (4.8-10.8)
[2017-07-30 06:20] LABS: CALCIUM 8.5 mg/dl (8.5-10.1); CREATININE 3.34 mg/dl (0.60-1.40); POTASSIUM 5.2 mmol/L (3.5-5.1)
[2017-07-30 06:29] LABS: PHOSPHORUS 3.9 mg/dl (2.5-4.9)
[2017-07-30] MEDS: POLYETHYLENE (MIRALAX) 17 GM PACK PO SCH (07:46)
[2017-07-30] MEDS: FLUTICASONE/SALMETEROL 250/50 (ADVAIR) 14 PUFF/1 INHALER INH SCH ×2 (07:47→20:33)
[2017-07-30] MEDS: CALCIUM ACETATE 667MG GELCAP PO SCH ×3 (07:47→17:05)
[2017-07-30] MEDS: ASPIRIN 81 MG ECTAB PO SCH (07:47)
[2017-07-30] MEDS: MIDODRINE 2.5 MG TAB PO SCH ×3 (07:48→17:06)
[2017-07-30] MEDS: METOPROLOL TARTRATE 100 MG TAB PO SCH ×2 (07:49→20:43)
[2017-07-30] MEDS: DOCUSATE SODIUM 100 MG CAP PO SCH ×2 (07:49→20:44)
[2017-07-30] MEDS: APIXABAN 2.5 MG TAB PO SCH ×2 (07:49→20:33)
[2017-07-30] MEDS: INSULIN ASPART 100 UNITS/ML 3 ML PEN SC SCH ×4 (07:53→20:39)
[2017-07-30] MEDS: AMIODARONE 200 MG TAB PO SCH ×3 (08:20→20:32)
--- NOTE | 2017-07-30 08:50 | Nephrology Progress Note ---
Nephrology Progress Note Date of Service: Jul 30, 2017. Subjective 87 yo male with ckd stage 5 on dialysis however with bp low, difficult to remove fluid. pt slid off the bed last night, per nurse, complaining of right upper thigh pain. now this morning, requiring a face mask to help with oxygenation. pt otherwise comfortable. Objective Date Time Temp Pulse Resp B/P (MAP) Pulse Ox O2 Delivery O2 Flow Rate FiO2 07/30/17 08:04 36.6 97 24 96/62 (73) 90 Oxymask 7.0 07/30/17 04:34 37.2 81 10 98/59 (72) 97 Oxymask 8.0 07/30/17 04:00 Oxymask 4.0 07/30/17 00:00 Oxymask 4.0 07/29/17 23:37 36.7 76 28 107/62 (77) 91 Nasal Cannula 10.0 07/29/17 20:49 99 103/61 (75) 07/29/17 20:00 Oxymask 4.0 07/29/17 18:58 36.6 100 24 96/59 (71) 90 Oxymask 10.0 07/29/17 16:00 Nasal Cannula 3.0 07/29/17 15:00 36.6 106 23 119/68 (85) 92 Nasal Cannula 4.0 07/29/17 12:15 36.6 99 18 108/60 (76) 91 Nasal Cannula 4.0 07/29/17 12:00 Nasal Cannula 3.0 Physical Exam: General-aaox3 Eyes-no scleral icterus ENT-mmm Neck-supple Lungs-decreased breath sounds at the right base, poor inspiratory effort Heart-aflutter Abdomen-bs+ s/nt/nd Extremities-no c/c/e Neuro-nonfocal Current Inpatient Medications Medications (Trade) Dose Ordered Sig/Ronak Route Start Time Stop Time Status Last Admin Dose Admin Hydromorphone HCl (Dilaudid Tab) 0.5 mg Q4H PRN PO 07/16/17 21:45 07/30/17 21:44 07/19/17 04:05 0.5 MG Finasteride (Proscar Tab) 5 mg HS PO 07/17/17 21:00 08/16/17 20:59 07/29/17 20:44 5 MG Salmeterol Xinafoate/ Fluticasone (Advair Diskus 250/50 Inh) 1 puff BID INH 07/17/17 09:00 08/16/17 08:59 07/30/17 07:47 1 PUFF Gabapentin (Neurontin Cap) 300 mg HS PO 07/17/17 21:00 08/16/17 20:59 07/29/17 20:45 300 MG Nitroglycerin (Nitrostat Tab) 0.4 mg UD PRN UT 07/16/17 21:45 08/15/17 21:44 Simvastatin (Zocor Tab) 40 mg QPM PO 07/17/17 21:00 08/16/17 20:59 07/29/17 20:44 40 MG Albuterol (Ventolin Hfa Inhaler) 2 puffs Q4H PRN INH 07/16/17 21:45 08/15/17 21:44 Miscellaneous Information (Consult Glycemic Management Pharmacy) 1 ea UD PRN N/A 07/17/17 10:40 08/16/17 10:39 Insulin Aspart (novoLOG ASPART) SLIDING SCALE ACHS SC 07/18/17 16:45 08/17/17 16:44 07/30/17 07:53 8 UNITS Al Hydroxide/Mg Hydroxide (Maalox Susp) 15 ml Q6H PRN PO 07/18/17 20:45 08/17/17 20:44 Docusate Sodium (coLACE CAP) 100 mg BID PO 07/19/17 09:00 08/18/17 08:59 07/30/17 07:49 100 MG Calcium Acetate (Phoslo Cap) 667 mg TIDM PO 07/19/17 07:15 08/18/17 07:14 07/30/17 07:47 667 MG Ondansetron HCl (Zofran Inj) 4 mg Q6H PRN IV 07/19/17 17:00 08/18/17 16:59 07/19/17 17:46 4 MG Polyethylene (Miralax Powder Packet) 17 gm DAILY PO 07/20/17 09:00 08/19/17 08:59 07/30/17 07:46 17 GM Insulin Glargine (Lantus Solostar Pen) SEE PROTOCOL T... QPM SC 07/22/17 21:00 08/21/17 20:59 07/29/17 20:48 14 UNITS Apixaban (Eliquis Tab) 2.5 mg BID PO 07/24/17 21:00 08/23/17 20:59 07/30/17 07:49 2.5 MG Aspirin (Ecotrin Tab) 81 mg QAM PO 07/27/17 09:00 08/26/17 08:59 07/30/17 07:47 81 MG Midodrine (Proamatine Tab) 2.5 mg TID@ PO 07/27/17 17:00 08/23/17 16:59 07/30/17 07:48 2.5 MG Amiodarone HCl (Cordarone Tab) 400 mg BIDM PO 07/28/17 16:45 08/21/17 16:44 07/30/17 08:20 400 MG Metoprolol Tartrate (Lopressor Tab) 100 mg BID PO 07/29/17 21:00 08/28/17 20:59 07/29/17 20:44 100 MG Epoetin Alexis (Procrit Inj) 10,000 units 1100 IV. 07/30/17 11:00 07/30/17 11:01 Last 24 Hours Test 07/29/17 11:05 07/29/17 16:45 07/29/17 20:41 07/29/17 21:15 Bedside Glucose 212 mg/dl 157 mg/dl 163 mg/dl 211 mg/dl Test 07/30/17 05:07 07/30/17 06:59 White Blood Count 7.23 K/uL Red Blood Count 3.00 M/uL Hemoglobin 8.8 g/dL Hematocrit 28.9 % Mean Corpuscular Volume 96.3 fL Mean Corpuscular Hemoglobin 29.3 pg Mean Corpuscular Hemoglobin Concent 30.4 g/dl RDW Standard Deviation 49.5 fL RDW Coefficient of Variation 14.2 % Platelet Count 157 K/uL Mean Platelet Volume 10.9 fL Sodium Level 134 mmol/L Potassium Level 5.2 mmol/L Chloride Level 101 mmol/L Carbon Dioxide Level 29 mmol/L Anion Gap 4.0 mmol/L Blood Urea Nitrogen 31 mg/dl Creatinine 3.34 mg/dl Est Creatinine Clear Calc Drug Dose 22.1 ml/min Estimated GFR () 18.4 Estimated GFR (Non- 15.9 BUN/Creatinine Ratio 9.4 Random Glucose 132 mg/dl Calcium Level 8.5 mg/dl Phosphorus Level 3.9 mg/dl Magnesium Level 2.2 mg/dl Bedside Glucose 137 mg/dl Assessment & Plan CKD stage 5-for dialysis today. pt now with hypoxia. will try to remove 0.5 liters and increase midodrine to 5 po tid to help support bp. difficult situation since pt chronically hypotensive and may be becoming fluid overloaded. to check chest xray.
[2017-07-30] MEDS ORDERED: MIDODRINE 2.5 MG TAB PO ONE (09:30)
--- NOTE | 2017-07-30 09:33 | DIAGNOSTIC IMAGING REPORT ---
CHEST ONE VIEW PORTABLE CLINICAL HISTORY: shortness of breath dyspnea COMPARISON STUDY: 07/18/2017 FINDINGS: Interval development of congestive heart failure. Baseline emphysematous changes unaltered. Fullness of the superior mediastinum is stable. Mild increase in cardiac size. PermCath noted within the superior vena cava. No evidence for pneumothorax. IMPRESSION: 1. Interval development of congestive failure. 2. Mild increase in cardiac size. 3. PermCath placed in the superior vena cava with no evidence of pneumothorax. The above report was generated using voice recognition software. It may contain grammatical, syntax or spelling errors. Electronically signed by: Braulio Molina M.D. 07/30/2017 9:32 AM Dictated Date/Time: 07/30/2017 9:31 AM
[2017-07-30] MEDS ORDERED: HEPARIN SOD (PORCINE) 1000 UNIT/ML 10 ML VIAL IV ONE (10:00)
--- NOTE | 2017-07-30 10:53 | Pharmacy Progress Note ---
Pharmacy Glycemic Short Note 2 Date of Service Jul 30, 2017. OUTPATIENT ANTIDIABETIC REGIMEN: * Lantus 50 units SQ BID * HbA1c: 7.2% (07/18/17) ASSESSMENT: * BSGs have been relatively well controlled with ~25-35 units of insulin per day. * Pt may require a hair more basal in the next day or so but for now there has been no trend indicating a change. * No changes have been made to insulin regimen this weekend - if this stability continues, pharmacy to sign off consult. PLAN FOR INPATIENT GLYCEMIC CONTROL: * Basal insulin * Lantus 14 units HS * Bolus insulin * NovoLog per scale ACHS or Q6hrs while NPO * Goal Range: Low 120 mg/dL - High 160 mg/dL * Correction Factor: 30 mg/dL/unit * Nutritional / Prandial insulin per carb ratio of 1 unit per 10 grams CHO consumed RECOMMENDATIONS FOR DISCHARGE: * Patient is requiring substantially less insulin at this time * Outpatient dose of Lantus will require reduction as she is currently only requiring ~14 units of Lantus per day
[2017-07-30] MEDS ORDERED: FUROSEMIDE INJ 40 MG in SYRINGE 0 ML IV ONE (11:00)
[2017-07-30] MEDS ORDERED: EPOETIN ALFA 10,000 UNITS/ML VIAL IV. SCH (11:00)
--- NOTE | 2017-07-30 12:07 | Cardiology Follow-Up ---
Subjective General Date of Service: Jul 30, 2017. Chief Complaint: follow up AFL Pt evaluation today including: conversation w/ patient, physical exam History of Present Illness The patient is a 87 year old male seen in follow up during dialysis. He feels fatigued , but otherwise has no complaints. Telemetry reveals continued atrial flutter at 90-99 bpm. His a.m. metoprolol dose has been held this morning due to low blood pressure in the mid 90 mmHg range. This has come up on subsequent measurements. Allergies Coded Allergies: Iodine (Verified Allergy, Mild, HIVES, 07/16/17) Sulfa Antibiotics (Verified Allergy, Unknown, ENTERED SULFA- UNKNOWN, 07/16/17) Social History Smoking Status: Former Smoker Hx Tobacco Use In Past Year?: No Hx Alcohol Use - Type And Amou: No Hx Substance Use - Type And Am: No Problem List Medical Problems: (1) ARF (acute renal failure) Status: Acute (2) ARF (acute renal failure) Status: Acute (3) Dehydration Status: Acute (4) Diverticulitis Status: Acute (5) Hyperglycemia Status: Acute (6) Hyperkalemia Status: Acute (7) Hypermagnesemia Status: Acute (8) Lower GI bleed Status: Acute (9) Pancreatitis Status: Acute (10) Renal failure Status: Acute (11) Renal failure Status: Acute (12) Urinary retention Status: Acute (13) UTI (urinary tract infection) Status: Acute Physical Exam Vital Signs Last Vital Signs Documentation Date Time Temp Pulse Resp B/P (MAP) Pulse Ox O2 Delivery O2 Flow Rate FiO2 07/30/17 11:30 103 103/67 07/30/17 09:13 36.7 07/30/17 08:04 24 90 Oxymask 7.0 Physical Exam Constitutional: General Apperance: well-nourished, well-developed, obese Level of Distress: NAD, acutely ill, chronically ill Psychiatric: Mental Status: normal mood, normal affect, lethargic Orientation: oriented except where noted, to time, to place, to person Memory: recent memory normal (but vague), remote memory normal Head: normocephalic, atraumatic Eyes: EOM: EOMI Neck: supple, trachea midline Lungs: Respiratory effort: no dyspnea Auscultation: no rhonchi, decreased breath sounds Cardiovascular: Apical Impulse: not displaced Peripheral Pulses: Bruits: none appreciated Carotid Pulse: normal on the left, normal on the right Radial Pulse: normal on the left, normal on the right Femoral Pulse: normal on the left, normal on the right Dorsalis Pedis Pulse: pertinent finding (nonpalpable) Abdomen: Bowel Sounds: normal Inspection & Palpation: soft, non-distended, no tenderness, guarding & rebound Musculoskeletal: normal strength (5/5 throughout), normal tone Extremities: pertinent finding (no significant lower extremity edema) Neurologic: Cranial Nerves: grossly intact Assessment and Plan Assessment and Plan IMPRESSION: 87-year-old male 1. Persistent atrial flutter with controlled ventricular rate. 2. Thrombocytopenia due to splenomegaly. 3. Ischemic cardiomyopathy with an estimated left ventricular ejection fraction of 35-40%. 4. End-stage renal disease requiring initiation of dialysis this admission RECOMMENDATIONS: Continue metoprolol tartrate 100 mg twice a day, with hold for heart rate less than 60 and systolic blood pressure less than 90 mmHg. Continue amiodarone 400 mg twice a day for now. At time of discharge, will reduce amiodarone to 200 mg twice a day. Continue Eliquis 2.5 mg bid, dose adjusted for renal insufficiency and age over 80 years. At present, recommend outpatient follow-up with cardiology, and if he remains in atrial flutter, elective direct-current cardioversion after he has been on anticoagulation for 3 weeks. Given the hemodynamic stressors of dialysis, and his risk of stroke, I think he is best served by undergoing prophylactic anticoagulation, and that cardioversion was likely be effective he has been on amiodarone for a few weeks as well. Liver function tests were stable on 07/16/17. Screening TSH was stable on 07/16/17. Laboratory Results Last 24 Hours Test 07/29/17 16:45 07/29/17 20:41 07/29/17 21:15 07/30/17 05:07 Bedside Glucose 157 mg/dl 163 mg/dl 211 mg/dl White Blood Count 7.23 K/uL Red Blood Count 3.00 M/uL Hemoglobin 8.8 g/dL Hematocrit 28.9 % Mean Corpuscular Volume 96.3 fL Mean Corpuscular Hemoglobin 29.3 pg Mean Corpuscular Hemoglobin Concent 30.4 g/dl RDW Standard Deviation 49.5 fL RDW Coefficient of Variation 14.2 % Platelet Count 157 K/uL Mean Platelet Volume 10.9 fL Sodium Level 134 mmol/L Potassium Level 5.2 mmol/L Chloride Level 101 mmol/L Carbon Dioxide Level 29 mmol/L Anion Gap 4.0 mmol/L Blood Urea Nitrogen 31 mg/dl Creatinine 3.34 mg/dl Est Creatinine Clear Calc Drug Dose 22.1 ml/min Estimated GFR () 18.4 Estimated GFR (Non- 15.9 BUN/Creatinine Ratio 9.4 Random Glucose 132 mg/dl Calcium Level 8.5 mg/dl Phosphorus Level 3.9 mg/dl Magnesium Level 2.2 mg/dl Test 07/30/17 06:59 07/30/17 11:17 Bedside Glucose 137 mg/dl 150 mg/dl
[2017-07-30] MEDS: FINASTERIDE 5 MG TAB PO SCH (20:34)
[2017-07-30] MEDS: GABAPENTIN 300 MG CAP PO SCH (20:34)
[2017-07-30] MEDS: SIMVASTATIN 40 MG TAB PO SCH (20:35)
[2017-07-30] MEDS: INSULIN GLARGINE SOLOSTAR 100 UNITS/ML 3 ML PEN SC SCH (20:40)
--- NOTE | 2017-07-30 21:30 | Progress Note ---
Post ICU Progress Note Date & Time Jul 30, 2017 at 21:25 Vital Signs Vital Signs Past 12 Hours Date Time Temp Pulse Resp B/P (MAP) Pulse Ox O2 Delivery O2 Flow Rate FiO2 07/30/17 20:44 107 106/53 (70) 88 Room Air 07/30/17 19:11 37.0 104 18 103/67 (79) 95 Oxymask 5.0 07/30/17 16:06 Oxymask 4.0 07/30/17 14:57 36.5 103 24 103/62 (76) 91 Oxymask 4.0 07/30/17 12:30 36.5 105 20 117/73 (88) 91 Nasal Cannula 6.0 Humidified Oxygen 07/30/17 12:20 36.7 103 100/64 (76) 07/30/17 12:15 106 78/58 07/30/17 12:00 71 98/72 07/30/17 12:00 Oxymask 4.0 07/30/17 11:45 105 100/62 07/30/17 11:30 103 103/67 07/30/17 11:15 100 95/60 07/30/17 11:00 102 106/64 07/30/17 10:45 102 107/67 07/30/17 10:30 100 97/63 07/30/17 10:15 92 98/64 07/30/17 10:00 92 106/62 07/30/17 09:45 100 100/64 07/30/17 09:30 98 95/60 Notes Mental Status: alert / awake Nausea / Vomiting: improving with treatment Pain: improving with treatment Airway Patency, RR, SpO2: stable & adequate BP & HR: stable & adequate Patient is an 87-year-old male initially admitted for acute renal failure on chronic disease. The patient has a significant past medical history of coronary artery disease as well as atrial fibrillation and a flutter. Patient initially was admitted to the ICU for close monitoring for electrolyte derangement. Temporary hemodialysis catheter was placed in the ICU and subsequently removed after permanent site was placed by Dr. Mckeon. Patient is currently undergoing dialysis M/W/. On evaluation today, the patient reports that he has felt much better since his time of arrival. Their plan is for discharge to [facility] early this week. Patient is optimistic at this point. Consider outpatient follow up in 1 to 2 weeks with: Per admitting team. Repeat imaging needed: None at this time. Follow up cultures: N/A Reviewed progress notes, labs, and inpatient medication list Continue current management Additional recommendations: May consider adding Type/Cross to patient's blood work as he has had persistent drop in H&H. Thank you for allowing us to participate in the care of this patient. At this time, Critical Care Services will sign off on patient's care. Please feel free to reconsult as needed. Consults & Procedures Consultants: Nephrology Vascular surgery Critical care medicine Procedures: Right femoral temporary hemodialysis catheter: 07/17/2017 Over wire of right temporary hemodialysis catheter: 07/17/2017
[2017-07-31] VITALS (9 sets, daily range): BP systolic 95–115; BP diastolic 60–76; PULSE 84–98; TEMP 36.5–37.1; O2SAT 90–96
[2017-07-31] MEDS: INSULIN ASPART 100 UNITS/ML 3 ML PEN SC SCH ×4 (08:12→21:05)
[2017-07-31] MEDS: ASPIRIN 81 MG ECTAB PO SCH (08:12)
[2017-07-31] MEDS: CALCIUM ACETATE 667MG GELCAP PO SCH ×3 (08:12→16:47)
[2017-07-31] MEDS: MIDODRINE 2.5 MG TAB PO SCH ×3 (08:13→17:37)
[2017-07-31] MEDS: FLUTICASONE/SALMETEROL 250/50 (ADVAIR) 14 PUFF/1 INHALER INH SCH ×2 (08:13→21:09)
[2017-07-31] MEDS: DOCUSATE SODIUM 100 MG CAP PO SCH ×2 (08:14→21:09)
[2017-07-31] MEDS: APIXABAN 2.5 MG TAB PO SCH ×2 (08:14→21:08)
[2017-07-31] MEDS: POLYETHYLENE (MIRALAX) 17 GM PACK PO SCH (08:14)
[2017-07-31] MEDS: AMIODARONE 200 MG TAB PO SCH ×2 (08:14→17:35)
[2017-07-31] MEDS ORDERED: FUROSEMIDE INJ 40 MG in SYRINGE 0 ML IV ONE (08:30)
--- NOTE | 2017-07-31 08:42 | Nephrology Progress Note ---
Nephrology Progress Note Date of Service: Jul 31, 2017. Subjective 87 yo male with ckd stage 5 on dialysis who developed volume overload and required fluid removal yesterday on dialysis. took off 2 liters and pt is oob to chair today feeling much better. Objective Date Time Temp Pulse Resp B/P (MAP) Pulse Ox O2 Delivery O2 Flow Rate FiO2 07/31/17 07:14 36.9 98 20 114/68 (83) 96 Oxymask 6.0 07/31/17 04:00 Nasal Cannula 6.0 Oxymask 07/31/17 03:55 36.5 97 20 105/67 (80) 92 Oxymask 6.0 07/31/17 00:12 36.6 89 15 110/61 (77) 93 Oxymask 6.0 07/30/17 23:42 Nasal Cannula 6.0 Oxymask 07/30/17 20:44 107 106/53 (70) 88 Room Air 07/30/17 20:00 91 Oxymask 6.0 07/30/17 19:11 37.0 104 18 103/67 (79) 95 Oxymask 5.0 07/30/17 16:06 Oxymask 4.0 07/30/17 14:57 36.5 103 24 103/62 (76) 91 Oxymask 4.0 07/30/17 12:30 36.5 105 20 117/73 (88) 91 Nasal Cannula 6.0 Humidified Oxygen 07/30/17 12:20 36.7 103 100/64 (76) 07/30/17 12:15 106 78/58 07/30/17 12:00 71 98/72 07/30/17 12:00 Oxymask 4.0 07/30/17 11:45 105 100/62 07/30/17 11:30 103 103/67 07/30/17 11:15 100 95/60 07/30/17 11:00 102 106/64 07/30/17 10:45 102 107/67 07/30/17 10:30 100 97/63 07/30/17 10:15 92 98/64 07/30/17 10:00 92 106/62 07/30/17 09:45 100 100/64 07/30/17 09:30 98 95/60 07/30/17 09:13 36.7 96 95/63 (74) Physical Exam: General-aaox3 Eyes-no scleral icterus ENT-mmm Neck-supple Lungs-cta Heart-aflutter, rate controlled Abdomen-bs+ s/nt/nd Extremities-no c/c/e Neuro-nonfocal Current Inpatient Medications Medications (Trade) Dose Ordered Sig/Ronak Route Start Time Stop Time Status Last Admin Dose Admin Finasteride (Proscar Tab) 5 mg HS PO 07/17/17 21:00 08/16/17 20:59 07/30/17 20:34 5 MG Salmeterol Xinafoate/ Fluticasone (Advair Diskus 250/50 Inh) 1 puff BID INH 07/17/17 09:00 08/16/17 08:59 07/31/17 08:13 1 PUFF Gabapentin (Neurontin Cap) 300 mg HS PO 07/17/17 21:00 08/16/17 20:59 07/30/17 20:34 300 MG Nitroglycerin (Nitrostat Tab) 0.4 mg UD PRN UT 07/16/17 21:45 08/15/17 21:44 Simvastatin (Zocor Tab) 40 mg QPM PO 07/17/17 21:00 08/16/17 20:59 07/30/17 20:35 40 MG Albuterol (Ventolin Hfa Inhaler) 2 puffs Q4H PRN INH 07/16/17 21:45 08/15/17 21:44 Miscellaneous Information (Consult Glycemic Management Pharmacy) 1 ea UD PRN N/A 07/17/17 10:40 08/16/17 10:39 Insulin Aspart (novoLOG ASPART) SLIDING SCALE ACHS SC 07/18/17 16:45 08/17/17 16:44 07/31/17 08:12 3 UNITS Al Hydroxide/Mg Hydroxide (Maalox Susp) 15 ml Q6H PRN PO 07/18/17 20:45 08/17/17 20:44 Docusate Sodium (coLACE CAP) 100 mg BID PO 07/19/17 09:00 08/18/17 08:59 07/31/17 08:14 100 MG Calcium Acetate (Phoslo Cap) 667 mg TIDM PO 07/19/17 07:15 08/18/17 07:14 07/31/17 08:12 667 MG Ondansetron HCl (Zofran Inj) 4 mg Q6H PRN IV 07/19/17 17:00 08/18/17 16:59 07/19/17 17:46 4 MG Polyethylene (Miralax Powder Packet) 17 gm DAILY PO 07/20/17 09:00 08/19/17 08:59 07/31/17 08:14 17 GM Apixaban (Eliquis Tab) 2.5 mg BID PO 07/24/17 21:00 08/23/17 20:59 07/31/17 08:14 2.5 MG Aspirin (Ecotrin Tab) 81 mg QAM PO 07/27/17 09:00 08/26/17 08:59 07/31/17 08:12 81 MG Midodrine (Proamatine Tab) 2.5 mg TID@,, PO 07/27/17 17:00 08/23/17 16:59 07/31/17 08:13 2.5 MG Amiodarone HCl (Cordarone Tab) 400 mg BIDM PO 07/28/17 16:45 08/21/17 16:44 07/31/17 08:14 400 MG Metoprolol Tartrate (Lopressor Tab) 100 mg BID PO 07/29/17 21:00 08/28/17 20:59 07/30/17 20:43 100 MG Furosemide (Lasix Tab) 80 mg BID17 PO 07/31/17 17:00 08/30/17 16:59 Insulin Glargine (Lantus Solostar Pen) 16 units QPM SC 07/31/17 21:00 08/30/17 20:59 Last 24 Hours Test 07/30/17 11:17 07/30/17 16:27 07/30/17 20:21 07/31/17 06:49 Bedside Glucose 150 mg/dl 173 mg/dl 180 mg/dl 143 mg/dl Assessment & Plan CKD stage 5-for dialysis tomorrow with attempt at another 2 liters as bp tolerates. goal systolic >80 on dialysis. 2k bath. does not have hit and have started using heparin 2000 unit bolus. Anemia of Renal Failure-goal hg of 10 to 11 and will redose procrit again tomorrow. JUDITH-on phoslo to help control phos levels.
[2017-07-31] MEDS: METOPROLOL TARTRATE 100 MG TAB PO SCH ×2 (09:33→21:08)
--- NOTE | 2017-07-31 10:26 | Pharmacy Progress Note ---
Glycemic Control Progress Note Date of Service Jul 31, 2017. Scope Glycemic Pharmacist consulted for glycemic control to write orders per [facility] inpatient glycemic control protocol. Objective Accuchecks BSG (last 24hrs): Test 07/30/17 11:17 07/30/17 16:27 07/30/17 20:21 07/31/17 06:49 Bedside Glucose 150 mg/dl (70-99) 173 mg/dl (70-99) 180 mg/dl (70-99) 143 mg/dl (70-99) HbA1c: Test 07/18/17 04:36 Hemoglobin A1c 7.2 % (4.5-5.6) H Recent Pertinent Medications The patient is currently receiving: * Basal insulin: Lantus 14 units every 24 hours in the evening * Correctional Insulin: Novolog Correction per scale ACHS Goal Range: Low 120 mg/dL - High 160 mg/dL Correction Factor: 30 mg/dL/unit * Prandial insulin: Per carb ratio of 1 unit per 10 grams CHO consumed Outpatient Anti-Diabetic Meds Lantus 50 units SQ BID Assessment & Plan ASSESSMENT: * See progress note from 07/30/17 for more background info, in short: * Pt receiving SQ basal bolus insulin regimen for hyperglycemia secondary to baseline DM (outpatient regimen on hold) and recent initiation of hemodialysis * Patient is currently receiving an average of 35-40 units of insulin per day * 14 units of basal insulin * 18 units of prandial/correctional insulin * BSGs ranging 137 - 180 mg/dl over the past 24hrs * Changes needed to insulin regimen: * AM Fasting BSG = 143 mg/dl. This is within goal range for patient based on inpatient targets and co-morbidities. The patient's fasting blood sugars continue to trend upwards while receiving 14 units of Lantus per day (127 - 108 - 137 -143 mg/dL). Increase slightly to 16 units (~10%). * Post-prandial BSGs rise throughout the day therefore need to tighten CF/CR HOWEVER, lunch today trended downwards so continue current regimen. * Total daily dose = ~40 units. Increased insulin appropriately. PLAN FOR INPATIENT GLYCEMIC CONTROL: * Increasing Lantus to 16 units SQ HS * Continue correction factor of 30 mg/dl/unit * Continuing carb ratio of 1 unit per 10 grams CHO consumed * Continuing goal range of Low 120 mg/dL - High 160 mg/dL RECOMMENDATIONS FOR DISCHARGE: * Recommend drastic decrease in insulin requirements as an outpatient. * Lantus 15 units SQ daily (if will not utilize Novolog could start with 20 units daily) * Novolog 3 units with meals Thank you.
[2017-07-31] MEDS: FUROSEMIDE 80 MG TAB PO SCH (17:37)
--- NOTE | 2017-07-31 17:55 | Progress Note ---
Medicine Progress Note Date & Time of Visit: Jul 31, 2017 at 13:08. Subjective 87 yo M who presents with hyperkalemia and acute on chronic renal failure. He was admitted to the ICU and underwent temporizing measures until a HD catheter could be placed and has been receiving dialysis as inpatient since that time. He has afib w RVR and hypotension. Midodrine was added to help keep his BP up while dialyzing and removing ultrafiltrate. As his BP is improving this is being weaned down. Additionally Cardiology has added amiodarone and has been titrating his Metoprolol to help control his heart rate which is more controlled today. He became more short of breath yesterday 2/2 acute on chronic diastolic heart failure and was started back on diuretics in addition to removing fluid in dialysis. Today he reports that he is doing well, denies chest pain, has frustrations with his inability to move well and is still requiring a bit more oxygen than his baseline. Tolerating PO. Objective Last 8 Hrs Date Time Temp Pulse Resp B/P (MAP) Pulse Ox O2 Delivery O2 Flow Rate FiO2 07/31/17 12:00 Nasal Cannula 5.0 07/31/17 10:45 37.1 88 20 108/76 (87) 92 Nasal Cannula 5.0 07/31/17 08:00 Nasal Cannula 5.0 07/31/17 07:14 36.9 98 20 114/68 (83) 96 Oxymask 6.0 Physical Exam: GEN: obese, in no acute distress, deconditioned, alert and appropriate HEENT: NC/AT, pupils are equal and round bilaterally, normal sclerae, MMM. CARDIO: tachy rate, S1/2 heard without m/g/r CHEST: tunneled HD catheter in place LUNGS: CTA bilaterally, no crackles, rales or wheezes, good diaphragmatic excursion ABD: soft, non-tender, non-distended, no rebound or guarding, +BS EXTREMITY: RP and DP palpable 2+ bilat, no LE swelling or edema, extremities are warm and well-perfused NEURO: CN 2-12 grossly intact, no gross focal deficits. MUSC: moves all extremities equally, no gross focal deficits but appears very deconditioned in general SKIN: warm and dry Laboratory Results: 07/30/17 05:07 07/30/17 05:07 Test 07/16/17 18:46 07/16/17 20:15 12/17/17 20:17 07/16/17 21:05 Prothrombin Time 10.2 SECONDS (9.0-12.0) Prothromb Time International Ratio 1.0 (0.9-1.1) Activated Partial Thromboplast Time 26.8 SECONDS (21.0-31.0) Partial Thromboplastin Ratio 1.0 Total Bilirubin 0.4 mg/dl (0.2-1) Direct Bilirubin < 0.1 mg/dl (0-0.2) Aspartate Amino Transf (AST/SGOT) 8 U/L (15-37) Alanine Aminotransferase (ALT/SGPT) 17 U/L (12-78) Alkaline Phosphatase 88 U/L (45-117) Total Protein 9.1 gm/dl (6.4-8.2) Albumin 3.6 gm/dl (3.4-5.0) Thyroid Stimulating Hormone (TSH) 0.955 uIu/ml (0.300-4.500) Bedside Lactic Acid Venous 1.01 mmol/L (0.90-1.70) Bedside Hemoglobin 12.9 g/dl (14.0-18.0) Bedside Hematocrit 38 % (42-52) Bedside Sodium 131 mEq/L (135-144) Bedside Potassium 7.3 mEq/L (3.3-5.0) Bedside Chloride 107 mEq/L (101-112) Bedside Total CO2 17 mEq/l (24-31) Bedside Blood Urea Nitrogen > 140 mg/dl (7-18) Bedside Creatinine 6.0 mg/dl (0.6-1.3) Bedside Glucose (other) 218 mg/dl (70-99) Bedside Ionized Calcium (Germán) 1.21 mmol/l (1.12-1.32) Urine Color YELLOW Urine Appearance TURBID (CLEAR) Urine pH 5.0 (4.5-7.5) Urine Specific Register 1.016 (1.000-1.030) Urine Protein 1+ (NEG) Urine Glucose (UA) NEG (NEG) Urine Ketones NEG (NEG) Urine Occult Blood 3+ (NEG) Urine Nitrite NEG (NEG) Urine Bilirubin NEG (NEG) Urine Urobilinogen NEG (NEG) Urine Leukocyte Esterase LARGE (NEG) Urine WBC (Auto) >30 /hpf (0-5) Urine RBC (Auto) 10-30 /hpf (0-4) Urine Hyaline Casts (Auto) 0 /lpf (0-5) Urine Epithelial Cells (Auto) 10-20 /lpf (0-5) Urine Bacteria (Auto) NEG (NEG) Urine Pathogenic Casts /lpf (0) Test 07/17/17 01:20 07/17/17 08:39 07/17/17 18:03 07/18/17 04:36 Digoxin Level 0.7 ng/ml (0.8-2.0) Hepatitis B Surface Antigen NEG (NEG) Hepatitis B Surface Antibody POS Hepatitis B Core Total Antibody REACTIVE (NON-REACTIVE) Total Creatine Kinase 27 U/L (39-308) Creatine Kinase MB 1.6 ng/ml (0.5-3.6) Creatine Kinase MB Ratio 5.9 (0-3.0) Troponin I 0.038 ng/ml (0-0.045) Estimated Average Glucose 160 mg/dl Hemoglobin A1c 7.2 % (4.5-5.6) Test 07/19/17 05:02 07/19/17 08:09 07/21/17 05:34 07/23/17 08:48 Platelet Estimate DECREASED Lipase 778 U/L (73-393) ARELI UF Heparin Low Dose 0.1 IU/mL 1 % Release ARELI UF Heparin Low Dose 0.5 IU/mL 0 % Release ARELI Unfractionat Heparin High Dose 0 % Release ARELI Unfractionated Heparin Negative (Negative) Heparin-PF4 Antibody Screen POS (NEG) Hypersegmented Polys 1+ Toxic Granulation 1+ Immature Granulocyte % (Auto) 0.5 % White Blood Count 8.08 K/uL (4.8-10.8) Red Blood Count 3.21 M/uL (4.7-6.1) Hemoglobin 9.4 g/dL (14.0-18.0) Hematocrit 29.9 % (42-52) Mean Corpuscular Volume 93.1 fL (80-100) Mean Corpuscular Hemoglobin 29.3 pg (25-34) Mean Corpuscular Hemoglobin Concent 31.4 g/dl (32-36) Platelet Count 85 K/uL (130-400) Mean Platelet Volume 11.0 fL (7.4-10.4) Neutrophils (%) (Auto) 83.1 % Lymphocytes (%) (Auto) 7.1 % Monocytes (%) (Auto) 5.8 % Eosinophils (%) (Auto) 3.1 % Basophils (%) (Auto) 0.4 % Neutrophils # (Auto) 6.72 K/uL (1.4-6.5) Lymphocytes # (Auto) 0.57 K/uL (1.2-3.4) Monocytes # (Auto) 0.47 K/uL (0.11-0.59) Eosinophils # (Auto) 0.25 K/uL (0-0.5) Basophils # (Auto) 0.03 K/uL (0-0.2) Immature Granulocyte # (Auto) 0.04 K/uL (0.00-0.02) Test 07/30/17 05:07 07/31/17 16:06 Red Blood Count 3.00 M/uL (4.7-6.1) Mean Corpuscular Volume 96.3 fL (80-100) Mean Corpuscular Hemoglobin 29.3 pg (25-34) Mean Corpuscular Hemoglobin Concent 30.4 g/dl (32-36) RDW Standard Deviation 49.5 fL (36.4-46.3) RDW Coefficient of Variation 14.2 % (11.5-14.5) Mean Platelet Volume 10.9 fL (7.4-10.4) Anion Gap 4.0 mmol/L (3-11) Est Creatinine Clear Calc Drug Dose 22.1 ml/min Estimated GFR () 18.4 Estimated GFR (Non- 15.9 BUN/Creatinine Ratio 9.4 (10-20) Calcium Level 8.5 mg/dl (8.5-10.1) Phosphorus Level 3.9 mg/dl (2.5-4.9) Magnesium Level 2.2 mg/dl (1.8-2.4) Bedside Glucose 124 mg/dl (70-99) Date/Time Source Procedure Growth Status 07/16/17 20:04 Blood Blood Culture - Final NO GROWTH Complete 07/16/17 22:45 Nasal MRSA DNA Surveillance Screen - Final Specimen Negative for MRSA by DNA Probe Complete 07/16/17 21:05 Urine,Catheterized Urine Culture - Final MORE THAN THREE TYPES OF ORGANISMS AK... Complete Last 24 Hours Test 07/30/17 16:27 07/30/17 20:21 07/31/17 06:49 07/31/17 11:36 Bedside Glucose 173 mg/dl 180 mg/dl 143 mg/dl 129 mg/dl Assessment & Plan 87 yo M who presents with hyperkalemia and acute on chronic renal failure. He was admitted to the ICU and underwent temporizing measures until a HD catheter could be placed and has been receiving dialysis as inpatient since that time. He has afib w RVR and hypotension. Midodrine was added to help keep his BP up while dialyzing and removing ultrafiltrate. As his BP is improving this is being weaned down. Additionally Cardiology has added amiodarone and has been titrating his Metoprolol to help control his heart rate which is more controlled today. He became more short of breath yesterday 2/2 acute on chronic diastolic heart failure and was started back on diuretics in addition to removing fluid in dialysis. Today he reports that he is doing well, denies chest pain, has frustrations with his inability to move well and is still requiring a bit more oxygen than his baseline. Tolerating PO. 1. Acute on chronic congestive heart failure with EF of 40%- diuretics were restarted yesterday in addition to fluid removal in dialysis to help manage fluid status. Plan is for another HD session in am (). PO Diuretics were restarted. 2. Atrial fibrillation with RVR-digoxin was stopped on admission in setting of worsening renal function on admission. Of note, he was not on anticoagulation coming into the hospital because of hematuria on coumadin in the past. He has now been started on renally dosed Eliquis and is being monitored closely and doing well. Improved heart rate control with up titration of Metoprolol to 100mg PO BID. Pt has also been on an amiodarone load since 07/23 and is being monitored by Cards and on a good dose to be discharged on. Continues in a flutter rhythm-will likely follow-up as outpatient for consideration of DCCV in a couple of weeks after appropriate anticoagulation. 3. 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 Management per Nephrology service-MWF dialysis schedule. Per Nephro. 4. Thrombocytopenia-improved. Per Hematology, it is OK to use heparin in this case if needed and to use antiplatelets if needed. Heparin was removed from his allergy list. Will let Nephrology know this is fine for HD and ASA was added back. He has had a false positive PF4 Ab in the past and this admission and does not appear to have HIT based on two negative serotonin release assay tests. 5. CAD status post stent placement. Stable, no symptoms at this time. Continue beta kelly, statin and added back ASA 81 based on Hematology recs. Plavix was stopped in setting of thrombocytopenia. Eliquis was started at renal dose (2.5mg PO BID) while monitoring platelet count which is improved. 6. Hypotension-improved on midodrine which was reduced by Cards. 7. Chronic respiratory failure secondary to COPD-Stable, no wheezing on exam. On Advair and albuterol p.r.n. Continuous supplemental oxygen. 8. BPH-recent issue with urinary retention. Wallace was placed in ER and flomax was stopped as patient had hypotension and was started on midodrine. Pt passed TOV here in the hospital and remains on finasteride 5mg PO QHS. Needs outpatient Urology follow-up. 9. Complicated UTI/prostatitis per ID team. Completed the recommended 10 days of Invanz therapy. 10. Anemia-chronic, stable, likely multifactorial including 2/2 frequent phlebotomy and anemia of CKD as well as other chronic diseases. Cont to monitor. 11. DMII-controlled on ISS/glargine. Appreciate pharmacy assistance with management. DVT proph-Eliquis Full Code Dispo-to rehab when bed available and breathing is at baseline. Daysi Page DO [facility] [address] Hospitalist Consultants: Nephro-Oncu Lucio Current Inpatient Medications: Current Inpatient Medications Medications (Trade) Dose Ordered Sig/Ronak Route Start Time Stop Time Status Last Admin Dose Admin Finasteride (Proscar Tab) 5 mg HS PO 07/17/17 21:00 08/16/17 20:59 07/30/17 20:34 5 MG Salmeterol Xinafoate/ Fluticasone (Advair Diskus 250/50 Inh) 1 puff BID INH 07/17/17 09:00 08/16/17 08:59 07/31/17 08:13 1 PUFF Gabapentin (Neurontin Cap) 300 mg HS PO 07/17/17 21:00 08/16/17 20:59 07/30/17 20:34 300 MG Nitroglycerin (Nitrostat Tab) 0.4 mg UD PRN UT 07/16/17 21:45 1/16/18 21:44 Simvastatin (Zocor Tab) 40 mg QPM PO 07/17/17 21:00 08/16/17 20:59 07/30/17 20:35 40 MG Albuterol (Ventolin Hfa Inhaler) 2 puffs Q4H PRN INH 07/16/17 21:45 08/15/17 21:44 Miscellaneous Information (Consult Glycemic Management Pharmacy) 1 ea UD PRN N/A 07/17/17 10:40 08/16/17 10:39 Insulin Aspart (novoLOG ASPART) SLIDING SCALE ACHS SC 07/18/17 16:45 08/17/17 16:44 07/31/17 11:52 5 UNITS Al Hydroxide/Mg Hydroxide (Maalox Susp) 15 ml Q6H PRN PO 07/18/17 20:45 08/17/17 20:44 Docusate Sodium (coLACE CAP) 100 mg BID PO 07/19/17 09:00 08/18/17 08:59 07/31/17 08:14 100 MG Calcium Acetate (Phoslo Cap) 667 mg TIDM PO 07/19/17 07:15 08/18/17 07:14 07/31/17 11:45 667 MG Ondansetron HCl (Zofran Inj) 4 mg Q6H PRN IV 07/19/17 17:00 08/18/17 16:59 07/19/17 17:46 4 MG Polyethylene (Miralax Powder Packet) 17 gm DAILY PO 07/20/17 09:00 08/19/17 08:59 07/31/17 08:14 17 GM Apixaban (Eliquis Tab) 2.5 mg BID PO 07/24/17 21:00 08/23/17 20:59 07/31/17 08:14 2.5 MG Aspirin (Ecotrin Tab) 81 mg QAM PO 07/27/17 09:00 08/26/17 08:59 07/31/17 08:12 81 MG Midodrine (Proamatine Tab) 2.5 mg TID@,, PO 07/27/17 17:00 08/23/17 16:59 07/31/17 11:45 2.5 MG Amiodarone HCl (Cordarone Tab) 400 mg BIDM PO 07/28/17 16:45 08/21/17 16:44 1/1/18 08:14 400 MG Metoprolol Tartrate (Lopressor Tab) 100 mg BID PO 07/29/17 21:00 08/28/17 20:59 07/31/17 09:33 100 MG Furosemide (Lasix Tab) 80 mg BID17 PO 07/31/17 17:00 08/30/17 16:59 Insulin Glargine (Lantus Solostar Pen) 16 units QPM SC 07/31/17 21:00 08/30/17 20:59 Heparin Sodium (Porcine) (Heparin Iv Bolus) 2,000 unit TODAY@0900 IV 08/01/17 09:00 08/01/17 23:59 Epoetin Alexis (Procrit Inj) 10,000 units TODAY@0900 IV. 08/01/17 09:00 08/01/17 23:59
[2017-07-31] MEDS: INSULIN GLARGINE SOLOSTAR 100 UNITS/ML 3 ML PEN SC SCH (21:06)
[2017-07-31] MEDS: SIMVASTATIN 40 MG TAB PO SCH (21:06)
[2017-07-31] MEDS: GABAPENTIN 300 MG CAP PO SCH (21:07)
[2017-07-31] MEDS: FINASTERIDE 5 MG TAB PO SCH (21:08)
[2017-08-01] VITALS (20 sets, daily range): BP systolic 95–136; BP diastolic 47–74; PULSE 70–101; TEMP 36.4–36.9; O2SAT 90–95
[2017-08-01 05:58] LABS: HEMATOCRIT 30.3 % (42-52); HEMOGLOBIN 9.1 g/dL (14.0-18.0); MEAN CELL VOLUME 96.8 fL (80-100); MEAN CORPUSCULAR HEMOGLOBIN 29.1 pg (25-34); MEAN PLATELET VOLUME 10.7 fL (7.4-10.4); PLATELET COUNT 192 K/uL (130-400); RED CELL DISTRIBUTION WIDTH CV 14.5 % (11.5-14.5); RED CELL DISTRIBUTION WIDTH SD 51.4 fL (36.4-46.3); WHITE BLOOD COUNT 5.79 K/uL (4.8-10.8)
[2017-08-01 06:26] LABS: CALCIUM 8.7 mg/dl (8.5-10.1); CREATININE 3.62 mg/dl (0.60-1.40); PHOSPHORUS 4.3 mg/dl (2.5-4.9)
[2017-08-01] MEDS: DOCUSATE SODIUM 100 MG CAP PO SCH ×2 (07:37→20:30)
[2017-08-01] MEDS: ASPIRIN 81 MG ECTAB PO SCH (07:37)
[2017-08-01] MEDS: APIXABAN 2.5 MG TAB PO SCH ×2 (07:37→20:31)
[2017-08-01] MEDS: METOPROLOL TARTRATE 100 MG TAB PO SCH ×2 (07:38→20:31)
[2017-08-01] MEDS: INSULIN ASPART 100 UNITS/ML 3 ML PEN SC SCH ×4 (07:40→20:40)
[2017-08-01] MEDS: CALCIUM ACETATE 667MG GELCAP PO SCH ×3 (07:41→17:05)
[2017-08-01] MEDS: POLYETHYLENE (MIRALAX) 17 GM PACK PO SCH (07:41)
[2017-08-01] MEDS: MIDODRINE 2.5 MG TAB PO SCH ×3 (07:41→17:05)
[2017-08-01] MEDS: AMIODARONE 200 MG TAB PO SCH ×2 (07:42→17:04)
[2017-08-01] MEDS: FUROSEMIDE 80 MG TAB PO SCH ×2 (07:43→17:05)
[2017-08-01] MEDS: FLUTICASONE/SALMETEROL 250/50 (ADVAIR) 14 PUFF/1 INHALER INH SCH ×2 (07:44→20:30)
--- NOTE | 2017-08-01 08:54 | Pharmacy Progress Note ---
Glycemic Control Progress Note Date of Service Aug 01, 2017. Scope Glycemic Pharmacist consulted for glycemic control to write orders per [facility] inpatient glycemic control protocol. Objective Accuchecks BSG (last 24hrs): Test 07/31/17 11:36 07/31/17 16:06 07/31/17 20:26 08/01/17 05:17 Bedside Glucose 129 mg/dl (70-99) 124 mg/dl (70-99) 136 mg/dl (70-99) Random Glucose 150 mg/dl (70-99) Test 08/01/17 06:50 Bedside Glucose 143 mg/dl (70-99) HbA1c: Test 07/18/17 04:36 Hemoglobin A1c 7.2 % (4.5-5.6) H Recent Pertinent Medications The patient is currently receiving: * Basal insulin: Lantus 16 units SQ Q HS * Correctional Insulin: Novolog Correction per scale ACHS Goal Range: Low 120 mg/dL - High 160 mg/dL Correction Factor: 30 mg/dL/unit * Prandial insulin: Per carb ratio of 1 unit per 10 grams CHO consumed Outpatient Anti-Diabetic Meds patient reported using Lantus 50 units SQ BID Assessment & Plan ASSESSMENT: 08/01/17 * All BSGs within goal range over last 24 hrs * CF and CR performing well * Lantus dose being titrated upwards slowly and seems to be producing beneficial effects * HD is planned today, thus would expect BSGs to trend a little lower today PLAN FOR INPATIENT GLYCEMIC CONTROL: * Continue Lantus 16 units SQ HS * Continuing correction factor of 30 mg/dl/unit * Continuing carb ratio of 1 unit per 10 grams CHO consumed * Continue goal range of Low 120 mg/dL - High 160 mg/dL RECOMMENDATIONS FOR DISCHARGE: * Patient is requiring substantially less insulin at this time * Outpatient dose of Lantus will require reduction as she is currently only requiring ~16 units of Lantus per day * She would likely benefit from Novolog 3-4 units with each meal for optimal control * Please note that the plan above was derived based on current level of insulin resistance and hospital stress. These recommendations are appropriate for inpatient admission only. Plan of care upon discharge will need to be reassessed to avoid potential outpatient hypo/hyperglycemia. Thank you.
[2017-08-01] MEDS ORDERED: HEPARIN SOD (PORCINE) 1000 UNIT/ML 10 ML VIAL IV SCH (09:00)
[2017-08-01] MEDS ORDERED: EPOETIN ALFA 10,000 UNITS/ML VIAL IV. SCH (09:00)
--- NOTE | 2017-08-01 12:46 | Cardiology Follow-Up ---
Subjective General Date of Service: Aug 01, 2017. Chief Complaint: follow up AFL Pt evaluation today including: conversation w/ patient, conversation w/ family , physical exam History of Present Illness The patient is a 87 year old male seen in follow up. Patient notes no chest pain, shortness of breath, or palpitations. C/o generalized fatigue post HD. Allergies Coded Allergies: Iodine (Verified Allergy, Mild, HIVES, 07/16/17) Sulfa Antibiotics (Verified Allergy, Unknown, ENTERED SULFA- UNKNOWN, 07/16/17) Social History Smoking Status: Former Smoker Hx Tobacco Use In Past Year?: No Hx Alcohol Use - Type And Amou: No Hx Substance Use - Type And Am: No Problem List Medical Problems: (1) ARF (acute renal failure) Status: Acute (2) ARF (acute renal failure) Status: Acute (3) Dehydration Status: Acute (4) Diverticulitis Status: Acute (5) Hyperglycemia Status: Acute (6) Hyperkalemia Status: Acute (7) Hypermagnesemia Status: Acute (8) Lower GI bleed Status: Acute (9) Pancreatitis Status: Acute (10) Renal failure Status: Acute (11) Renal failure Status: Acute (12) Urinary retention Status: Acute (13) UTI (urinary tract infection) Status: Acute Physical Exam Vital Signs Last Vital Signs Documentation Date Time Temp Pulse Resp B/P (MAP) Pulse Ox O2 Delivery O2 Flow Rate FiO2 08/01/17 12:17 36.5 92 19 96/55 (69) 94 08/01/17 12:00 Nasal Cannula 5.0 Physical Exam Constitutional: General Apperance: obese Level of Distress: NAD, chronically ill Psychiatric: Mental Status: normal mood, normal affect, lethargic Orientation: oriented except where noted, to time, to place, to person Memory: recent memory normal (but vague), remote memory normal Head: normocephalic, atraumatic Eyes: EOM: EOMI Neck: supple, trachea midline Lungs: Respiratory effort: no dyspnea Auscultation: no rhonchi, decreased breath sounds Cardiovascular: Heart Auscultation: RRR, no murmurs, no rubs Peripheral Pulses: Dorsalis Pedis Pulse: pertinent finding (nonpalpable) Abdomen: Bowel Sounds: normal Inspection & Palpation: soft, non-distended, no tenderness, guarding & rebound Extremities: pertinent finding (no significant lower extremity edema) Neurologic: Cranial Nerves: grossly intact Assessment and Plan Assessment and Plan Telemetry: onging atrial flutter at 90-99 bpm IMPRESSION: 87-year-old male 1. Persistent atrial flutter with controlled ventricular rate. 2. Thrombocytopenia due to splenomegaly. 3. Ischemic cardiomyopathy with an estimated left ventricular ejection fraction of 35-40%. 4. End-stage renal disease requiring initiation of dialysis this admission RECOMMENDATIONS: Continue metoprolol tartrate 100 mg twice a day, with hold for heart rate less than 60 and systolic blood pressure less than 90 mmHg. Continue amiodarone 400 mg twice a day for now. At time of discharge, will reduce amiodarone to 200 mg twice a day. Continue Eliquis 2.5 mg bid, dose adjusted for renal insufficiency and age over 80 years. At present, recommend outpatient follow-up with cardiology, and if he remains in atrial flutter, elective direct-current cardioversion after he has been on anticoagulation for 3 weeks. Given the hemodynamic stressors of dialysis, and his risk of stroke, I think he is best served by undergoing prophylactic anticoagulation, and that cardioversion was likely be effective he has been on amiodarone for a few weeks as well. Liver function tests were stable on 07/16/17. Screening TSH was stable on 07/16/17. Laboratory Results Last 24 Hours Test 07/31/17 16:06 07/31/17 20:26 08/01/17 05:17 08/01/17 06:50 Bedside Glucose 124 mg/dl 136 mg/dl 143 mg/dl White Blood Count 5.79 K/uL Red Blood Count 3.13 M/uL Hemoglobin 9.1 g/dL Hematocrit 30.3 % Mean Corpuscular Volume 96.8 fL Mean Corpuscular Hemoglobin 29.1 pg Mean Corpuscular Hemoglobin Concent 30.0 g/dl RDW Standard Deviation 51.4 fL RDW Coefficient of Variation 14.5 % Platelet Count 192 K/uL Mean Platelet Volume 10.7 fL Sodium Level 137 mmol/L Potassium Level 5.0 mmol/L Chloride Level 100 mmol/L Carbon Dioxide Level 32 mmol/L Anion Gap 5.0 mmol/L Blood Urea Nitrogen 36 mg/dl Creatinine 3.62 mg/dl Est Creatinine Clear Calc Drug Dose 20.3 ml/min Estimated GFR () 16.7 Estimated GFR (Non- 14.4 BUN/Creatinine Ratio 9.9 Random Glucose 150 mg/dl Calcium Level 8.7 mg/dl Phosphorus Level 4.3 mg/dl Magnesium Level 2.2 mg/dl Test 08/01/17 11:22 Bedside Glucose 95 mg/dl
--- NOTE | 2017-08-01 13:30 | Clinical Documentation Query ---
CLINICAL DOCUMENTATION QUERY 87 year old male who presents to the Emergency Room with complaints of persistent generalized pain. CHF is stated in statement and plan however dictation seems incomplete in EMR. Later on 07/31/17 daily progress note the patient was described as having "Acute on chronic congestive heart failure with EF of 40%- diuretics were restarted yesterday in addition to fluid removal in dialysis to help manage fluid status. Plan is for another HD session in am (). PO Diuretics were restarted. " In your clinical opinion is this patient being managed for: ( X ) Acute on chronic systolic and diastolic CHF in setting of EDUAR on CKD stage 5 requiring dialysis now and daily diuretics. ( ) Acute Systolic CHF ( ) Not Agree ( ) Other explanation of clinical findings (Please Explain) ( ) Unable to determine (Please Define) ( ) Need to Discuss The medical record reflects the following clinical findings, treatment, and risk factors. Clinical Indicators: CHF per EMR w/o specificity. CXR showed vague perihilar opacities could suggest early pulmonary edema and Cardiomegaly. Echo showed EF of 35-40%, and grade II diastolic dysfunction. Treatment: IV Lasix, nephrology consult, surgical consult for dialysis catheter placement. Routine dialysis M,W,F. Risk Factors: Age, CKD V, HTN, Please clarify and document your clinical opinion in the progress notes and discharge summary. Terms such as "probable", "suspected", "likely", "questionable", "possible", or "still to be ruled out" are acceptable. IF IN AGREEMENT, YOU MUST DOCUMENT ABOVE DIAGNOSTIC STATEMENT IN DAILY PROGRESS NOTES AND DISCHARGE SUMMARY. This document is not part of the patient's record. Thank You, Elbert Stephenson, RN [phone]
--- NOTE | 2017-08-01 13:46 | PROGRESS NOTE ---
DATE: 08/01/2017 HISTORY OF PRESENT ILLNESS: The patient is an 87-year-old male with CKD stage V, on chronic dialysis who developed volume overload and required fluid removal. He just came back from dialysis where about 2 kilo of fluid was removed. He does not answer any questions with any clarity; however, he appears to be comfortable. Objective: VITAL SIGNS: Blood pressure is somewhat low at 96/55, 94% on nasal cannula at 5 liters, pulse rate 92 per minute, temperature 36.5. HEENT: Mucous membrane is moist. NECK: Supple. No jugular venous distention. CHEST: Very diminished breath sounds because he really did not take any inspiratory effort. CARDIOVASCULAR: Irregular, but rate controlled. ABDOMEN: Soft, nontender. EXTREMITIES: Shows trace to 1+ edema. NEUROLOGIC: Nonfocal. LABORATORY TESTS: From this morning shows a hemoglobin of 9.1, platelet count of 192. Sodium 137, potassium 5.0, BUN 36, creatinine 3.62. ASSESSMENT AND PLAN: Chronic kidney disease, stage V. He has been getting dialysis 3 times a week. We have started to use heparin. Anemia of renal failure, goal hemoglobin of 10-11 and will continue to use Procrit. Renal osteodystrophy, he is on PhosLo to control the phosphorous levels. [facility]
--- NOTE | 2017-08-01 18:32 | Progress Note ---
Subjective Date of Service: Aug 01, 2017. Subjective Pt evaluation today including: conversation w/ patient, physical exam, lab review, review of studies, review of inpatient medication list Saw/examined the patient in room 201 He is doing well, no problems/issues to note today Problem List Medical Problems: (1) ARF (acute renal failure) Status: Acute (2) ARF (acute renal failure) Status: Acute (3) Dehydration Status: Acute (4) Diverticulitis Status: Acute (5) Hyperglycemia Status: Acute (6) Hyperkalemia Status: Acute (7) Hypermagnesemia Status: Acute (8) Lower GI bleed Status: Acute (9) Pancreatitis Status: Acute (10) Renal failure Status: Acute (11) Renal failure Status: Acute (12) Urinary retention Status: Acute (13) UTI (urinary tract infection) Status: Acute Objective Vital Signs Date Time Temp Pulse Resp B/P (MAP) Pulse Ox O2 Delivery O2 Flow Rate FiO2 08/01/17 16:00 Nasal Cannula 5.0 08/01/17 15:19 36.4 91 24 101/59 (73) 94 Nasal Cannula 5.0 08/01/17 12:17 36.5 92 19 96/55 (69) 94 08/01/17 12:00 Nasal Cannula 5.0 08/01/17 10:57 36.4 101 108/57 (74) 08/01/17 10:45 84 107/57 08/01/17 10:30 89 102/51 08/01/17 10:15 88 105/49 08/01/17 10:00 84 99/54 08/01/17 09:45 93 101/57 08/01/17 09:30 85 104/57 08/01/17 09:15 91 114/54 08/01/17 09:00 89 122/64 08/01/17 08:45 70 116/74 08/01/17 08:30 100 133/70 08/01/17 08:20 36.5 96 20 136/73 (94) 91 Nasal Cannula 5.0 08/01/17 08:15 99 100/54 08/01/17 08:00 99 95/47 08/01/17 08:00 Nasal Cannula 5.0 08/01/17 07:45 101 102/58 08/01/17 07:40 36.5 101 102/58 (73) 08/01/17 04:12 36.5 82 21 116/74 (88) 95 Nasal Cannula 5.0 08/01/17 04:00 Nasal Cannula 5.0 07/31/17 23:59 Nasal Cannula 5.0 07/31/17 23:13 36.5 84 16 95/61 (72) 91 Nasal Cannula 5.0 07/31/17 20:00 90 Nasal Cannula 5.0 07/31/17 19:00 37.0 96 20 115/60 (78) 95 Nasal Cannula 5.0 Laboratory Results Last 24 Hours Test 07/31/17 20:26 08/01/17 05:17 08/01/17 06:50 08/01/17 11:22 Bedside Glucose 136 mg/dl 143 mg/dl 95 mg/dl White Blood Count 5.79 K/uL Red Blood Count 3.13 M/uL Hemoglobin 9.1 g/dL Hematocrit 30.3 % Mean Corpuscular Volume 96.8 fL Mean Corpuscular Hemoglobin 29.1 pg Mean Corpuscular Hemoglobin Concent 30.0 g/dl RDW Standard Deviation 51.4 fL RDW Coefficient of Variation 14.5 % Platelet Count 192 K/uL Mean Platelet Volume 10.7 fL Sodium Level 137 mmol/L Potassium Level 5.0 mmol/L Chloride Level 100 mmol/L Carbon Dioxide Level 32 mmol/L Anion Gap 5.0 mmol/L Blood Urea Nitrogen 36 mg/dl Creatinine 3.62 mg/dl Est Creatinine Clear Calc Drug Dose 20.3 ml/min Estimated GFR () 16.7 Estimated GFR (Non- 14.4 BUN/Creatinine Ratio 9.9 Random Glucose 150 mg/dl Calcium Level 8.7 mg/dl Phosphorus Level 4.3 mg/dl Magnesium Level 2.2 mg/dl Test 08/01/17 16:14 Bedside Glucose 121 mg/dl Assessment and Plan 87 yo M who presents with hyperkalemia and acute on chronic renal failure. He was admitted to the ICU and underwent temporizing measures until a HD catheter could be placed and has been receiving dialysis as inpatient since that time. He has afib w RVR and hypotension. Midodrine was added to help keep his BP up while dialyzing and removing ultrafiltrate. As his BP is improving this is being weaned down. Additionally Cardiology has added amiodarone and has been titrating his Metoprolol to help control his heart rate which is more controlled today. He became more short of breath yesterday 2/2 acute on chronic diastolic heart failure and was started back on diuretics in addition to removing fluid in dialysis. Today he reports that he is doing well, denies chest pain, has frustrations with his inability to move well and is still requiring a bit more oxygen than his baseline. Tolerating PO. 1. Acute on chronic congestive heart failure with EF of 40%- diuretics were restarted yesterday in addition to fluid removal in dialysis to help manage fluid status. Plan is for another HD session in am (). PO Diuretics were restarted. 08/01/17 continue PO diuretics HD today - 08/01 2. Atrial fibrillation with RVR-digoxin was stopped on admission in setting of worsening renal function on admission. Of note, he was not on anticoagulation coming into the hospital because of hematuria on coumadin in the past. He has now been started on renally dosed Eliquis and is being monitored closely and doing well. Improved heart rate control with up titration of Metoprolol to 100mg PO BID. Pt has also been on an amiodarone load since 07/23 and is being monitored by Cards and on a good dose to be discharged on. Continues in a flutter rhythm-will likely follow-up as outpatient for consideration of DCCV in a couple of weeks after appropriate anticoagulation. 08/01 for now, would continue metoprolol and amiodarone as per cardiology Eliquis for anticoagulation 3. 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 Management per Nephrology service-F dialysis schedule. Per Nephro. 4. Thrombocytopenia-improved. Per Hematology, it is OK to use heparin in this case if needed and to use antiplatelets if needed. Heparin was removed from his allergy list. Will let Nephrology know this is fine for HD and ASA was added back. He has had a false positive PF4 Ab in the past and this admission and does not appear to have HIT based on two negative serotonin release assay tests. 5. CAD status post stent placement. Stable, no symptoms at this time. Continue beta kelly, statin and added back ASA 81 based on Hematology recs. Plavix was stopped in setting of thrombocytopenia. Eliquis was started at renal dose (2.5mg PO BID) while monitoring platelet count which is improved. 6. Hypotension-improved on midodrine which was reduced by Cards. 7. Chronic respiratory failure secondary to COPD-Stable, no wheezing on exam. On Advair and albuterol p.r.n. Continuous supplemental oxygen. 8. BPH-recent issue with urinary retention. Wallace was placed in ER and flomax was stopped as patient had hypotension and was started on midodrine. Pt passed TOV here in the hospital and remains on finasteride 5mg PO QHS. Needs outpatient Urology follow-up. 9. Complicated UTI/prostatitis per ID team. Completed the recommended 10 days of Invanz therapy. 10. Anemia-chronic, stable, likely multifactorial including 2/2 frequent phlebotomy and anemia of CKD as well as other chronic diseases. Cont to monitor. 11. DMII-controlled on ISS/glargine. Appreciate pharmacy assistance with management. DVT proph-Eliquis Full Code Dispo-to rehab when bed available and breathing is at baseline.
[2017-08-01] MEDS: GABAPENTIN 300 MG CAP PO SCH (20:32)
[2017-08-01] MEDS: FINASTERIDE 5 MG TAB PO SCH (20:32)
[2017-08-01] MEDS: SIMVASTATIN 40 MG TAB PO SCH (20:32)
[2017-08-01] MEDS: INSULIN GLARGINE SOLOSTAR 100 UNITS/ML 3 ML PEN SC SCH (20:39)
[2017-08-02] VITALS (10 sets, daily range): BP systolic 97–112; BP diastolic 56–71; PULSE 82–103; TEMP 36.4–36.7; O2SAT 89–100
[2017-08-02] MEDS: AMIODARONE 200 MG TAB PO SCH ×2 (08:24→18:31)
[2017-08-02] MEDS: ASPIRIN 81 MG ECTAB PO SCH (08:25)
[2017-08-02] MEDS: DOCUSATE SODIUM 100 MG CAP PO SCH ×2 (08:25→21:21)
[2017-08-02] MEDS: CALCIUM ACETATE 667MG GELCAP PO SCH ×3 (08:25→18:31)
[2017-08-02] MEDS: MIDODRINE 2.5 MG TAB PO SCH ×3 (08:26→18:32)
[2017-08-02] MEDS: FUROSEMIDE 80 MG TAB PO SCH ×2 (08:26→18:32)
[2017-08-02] MEDS: FLUTICASONE/SALMETEROL 250/50 (ADVAIR) 14 PUFF/1 INHALER INH SCH ×2 (08:26→21:20)
[2017-08-02] MEDS: POLYETHYLENE (MIRALAX) 17 GM PACK PO SCH (08:27)
[2017-08-02] MEDS: METOPROLOL TARTRATE 100 MG TAB PO SCH (08:27)
[2017-08-02] MEDS: APIXABAN 2.5 MG TAB PO SCH ×2 (08:27→21:21)
[2017-08-02 08:28] LABS: HEMOGLOBIN 9.4 g/dL (14.0-18.0); MEAN CELL VOLUME 96.3 fL (80-100); MEAN CORPUSCULAR HEMOGLOBIN 29.2 pg (25-34); MEAN CORPUSCULAR HGB CONC 30.3 g/dl (32-36); MEAN PLATELET VOLUME 10.4 fL (7.4-10.4); PLATELET COUNT 199 K/uL (130-400); RED CELL DISTRIBUTION WIDTH CV 14.6 % (11.5-14.5); RED CELL DISTRIBUTION WIDTH SD 51.2 fL (36.4-46.3); WHITE BLOOD COUNT 6.66 K/uL (4.8-10.8)
[2017-08-02] MEDS: INSULIN ASPART 100 UNITS/ML 3 ML PEN SC SCH ×4 (08:30→21:00)
[2017-08-02 09:14] LABS: CALCIUM 8.4 mg/dl (8.5-10.1); CREATININE 3.28 mg/dl (0.60-1.40); POTASSIUM 4.8 mmol/L (3.5-5.1)
--- NOTE | 2017-08-02 11:32 | Cardiology Follow-Up ---
Subjective General Date of Service: Aug 02, 2017. Chief Complaint: follow up AFL Pt evaluation today including: conversation w/ patient, physical exam History of Present Illness The patient is a 87 year old male seen in follow up. Patient with more energy than yesterday. Telemetry reveals continued AFL at 99 bpm. Allergies Coded Allergies: Iodine (Verified Allergy, Mild, HIVES, 07/16/17) Sulfa Antibiotics (Verified Allergy, Unknown, ENTERED SULFA- UNKNOWN, 07/16/17) Social History Smoking Status: Former Smoker Hx Tobacco Use In Past Year?: No Hx Alcohol Use - Type And Amou: No Hx Substance Use - Type And Am: No Problem List Medical Problems: (1) ARF (acute renal failure) Status: Acute (2) ARF (acute renal failure) Status: Acute (3) Dehydration Status: Acute (4) Diverticulitis Status: Acute (5) Hyperglycemia Status: Acute (6) Hyperkalemia Status: Acute (7) Hypermagnesemia Status: Acute (8) Lower GI bleed Status: Acute (9) Pancreatitis Status: Acute (10) Renal failure Status: Acute (11) Renal failure Status: Acute (12) Urinary retention Status: Acute (13) UTI (urinary tract infection) Status: Acute Physical Exam Vital Signs Last Vital Signs Documentation Date Time Temp Pulse Resp B/P (MAP) Pulse Ox O2 Delivery O2 Flow Rate FiO2 08/02/17 11:11 36.4 90 18 109/71 (84) 94 Nasal Cannula 5.0 Physical Exam Constitutional: General Apperance: obese Level of Distress: NAD, chronically ill Psychiatric: Mental Status: normal mood, normal affect, lethargic Orientation: oriented except where noted, to time, to place, to person Memory: recent memory normal (but vague), remote memory normal Head: normocephalic, atraumatic Eyes: EOM: EOMI Neck: supple, trachea midline Lungs: Respiratory effort: no dyspnea Auscultation: no rhonchi, decreased breath sounds Cardiovascular: Heart Auscultation: RRR, no murmurs, no rubs Peripheral Pulses: Dorsalis Pedis Pulse: pertinent finding (nonpalpable) Abdomen: Bowel Sounds: normal Inspection & Palpation: soft, non-distended, no tenderness, guarding & rebound Extremities: pertinent finding (no significant lower extremity edema) Neurologic: Cranial Nerves: grossly intact Assessment and Plan Assessment and Plan Telemetry: atrial flutter at 90-99 bpm IMPRESSION: 87-year-old male 1. Persistent atrial flutter with controlled ventricular rate. 2. Thrombocytopenia due to splenomegaly. 3. Ischemic cardiomyopathy with an estimated left ventricular ejection fraction of 35-40%. 4. End-stage renal disease requiring initiation of dialysis this admission RECOMMENDATIONS: Continue metoprolol tartrate 100 mg twice a day, with hold for heart rate less than 60 and systolic blood pressure less than 90 mmHg. Discharge on amiodarone to 200 mg twice a day. Continue Eliquis 2.5 mg bid, dose adjusted for renal insufficiency and age over 80 years. At present, recommend outpatient follow-up with cardiology, and if he remains in atrial flutter, elective direct-current cardioversion after he has been on anticoagulation for 4 weeks. Given the hemodynamic stressors of dialysis, and his risk of stroke, I think he is best served by undergoing prophylactic anticoagulation, and that cardioversion was likely be effective he has been on amiodarone for a few weeks as well. He already has cardiology follow up with [facility] of our practice on at which time he will be reassessed and elective CV will be scheduled if deemed appropriate. Liver function tests were stable on 07/16/17. Screening TSH was stable on 07/16/17. Laboratory Results Last 24 Hours Test 08/01/17 16:14 08/01/17 20:20 08/02/17 07:30 08/02/17 08:03 Bedside Glucose 121 mg/dl 189 mg/dl 124 mg/dl White Blood Count 6.66 K/uL Red Blood Count 3.22 M/uL Hemoglobin 9.4 g/dL Hematocrit 31.0 % Mean Corpuscular Volume 96.3 fL Mean Corpuscular Hemoglobin 29.2 pg Mean Corpuscular Hemoglobin Concent 30.3 g/dl RDW Standard Deviation 51.2 fL RDW Coefficient of Variation 14.6 % Platelet Count 199 K/uL Mean Platelet Volume 10.4 fL Sodium Level 136 mmol/L Potassium Level 4.8 mmol/L Chloride Level 100 mmol/L Carbon Dioxide Level 31 mmol/L Anion Gap 5.0 mmol/L Blood Urea Nitrogen 29 mg/dl Creatinine 3.28 mg/dl Est Creatinine Clear Calc Drug Dose 22.7 ml/min Estimated GFR () 18.8 Estimated GFR (Non- 16.3 BUN/Creatinine Ratio 8.9 Random Glucose 136 mg/dl Calcium Level 8.4 mg/dl Magnesium Level 2.1 mg/dl
--- NOTE | 2017-08-02 16:57 | NEPHROLOGY PROGRESS NOTE ---
DATE: 08/02/2017 DATE: 08/02/2017 HISTORY OF PRESENT ILLNESS: The patient is an 87-year-old male with CKD stage V, on chronic hemodialysis, who developed volume overload and required fluid removal. He had dialysis yesterday, about 2 kilo of fluid was removed. He is not a good historian and has minimal response to my questions; however, he appears to be comfortable. OBJECTIVE: VITAL SIGNS: Blood pressure is 104/58, 95% on 5 liter nasal cannula, pulse rate 82 per minute, temperature 36.4. HEAD, EYES, EARS, NOSE, AND THROAT: Mucous membranes are moist. NECK: Supple. No jugular venous distension. CHEST: Very diminished breath sounds because he really did not take any inspiratory effort. CARDIOVASCULAR: Irregular, but rate controlled. ABDOMEN: Soft, nontender. EXTREMITIES: Shows trace to 1+ edema. NEUROLOGIC: Nonfocal. LABORATORY TESTS: From this morning shows hemoglobin of 9.4, platelet count 199. Sodium 136, potassium 4.8, BUN 29, creatinine 3.28. ASSESSMENT AND PLAN: Chronic kidney disease stage V with volume overload. We will be doing dialysis tomorrow like we have been doing for the last few sessions. He will continue to get Procrit. renal osteodystrophy PhosLo to control the phosphorous levels. Dialysis orders for tomorrow has been written. [facility]
--- NOTE | 2017-08-02 18:08 | Progress Note ---
Subjective Date of Service: Aug 02, 2017. Subjective Pt evaluation today including: conversation w/ patient, physical exam, lab review, review of studies, review of inpatient medication list Saw/examined the patient in room 283 He's doing well, no problems/issues to note; besides +weakness No chest pain; currently seated in a chair Problem List Medical Problems: (1) ARF (acute renal failure) Status: Acute (2) ARF (acute renal failure) Status: Acute (3) Dehydration Status: Acute (4) Diverticulitis Status: Acute (5) Hyperglycemia Status: Acute (6) Hyperkalemia Status: Acute (7) Hypermagnesemia Status: Acute (8) Lower GI bleed Status: Acute (9) Pancreatitis Status: Acute (10) Renal failure Status: Acute (11) Renal failure Status: Acute (12) Urinary retention Status: Acute (13) UTI (urinary tract infection) Status: Acute Review of Systems Constitutional: + weakness, No fever, No chills Respiratory: + cough, + sputum, No shortness of breath Cardiac: No chest pain Medications Current Inpatient Medications Medications (Trade) Dose Ordered Sig/Ronak Route Start Time Stop Time Status Last Admin Dose Admin Finasteride (Proscar Tab) 5 mg HS PO 07/17/17 21:00 08/16/17 20:59 08/01/17 20:32 5 MG Salmeterol Xinafoate/ Fluticasone (Advair Diskus 250/50 Inh) 1 puff BID INH 07/17/17 09:00 08/16/17 08:59 08/02/17 08:26 1 PUFF Gabapentin (Neurontin Cap) 300 mg HS PO 07/17/17 21:00 08/16/17 20:59 08/01/17 20:32 300 MG Nitroglycerin (Nitrostat Tab) 0.4 mg UD PRN UT 07/16/17 21:45 08/15/17 21:44 Simvastatin (Zocor Tab) 40 mg QPM PO 07/17/17 21:00 08/16/17 20:59 08/01/17 20:32 40 MG Albuterol (Ventolin Hfa Inhaler) 2 puffs Q4H PRN INH 07/16/17 21:45 08/15/17 21:44 Miscellaneous Information (Consult Glycemic Management Pharmacy) 1 ea UD PRN N/A 07/17/17 10:40 08/16/17 10:39 Insulin Aspart (novoLOG ASPART) SLIDING SCALE ACHS SC 07/18/17 16:45 08/17/17 16:44 08/02/17 12:37 4 UNITS Al Hydroxide/Mg Hydroxide (Maalox Susp) 15 ml Q6H PRN PO 07/18/17 20:45 08/17/17 20:44 Docusate Sodium (coLACE CAP) 100 mg BID PO 07/19/17 09:00 08/18/17 08:59 08/02/17 08:25 100 MG Calcium Acetate (Phoslo Cap) 667 mg TIDM PO 07/19/17 07:15 08/18/17 07:14 08/02/17 12:35 667 MG Ondansetron HCl (Zofran Inj) 4 mg Q6H PRN IV 07/19/17 17:00 08/18/17 16:59 07/19/17 17:46 4 MG Polyethylene (Miralax Powder Packet) 17 gm DAILY PO 07/20/17 09:00 08/19/17 08:59 08/02/17 08:27 17 GM Apixaban (Eliquis Tab) 2.5 mg BID PO 07/24/17 21:00 08/23/17 20:59 08/02/17 08:27 2.5 MG Aspirin (Ecotrin Tab) 81 mg QAM PO 07/27/17 09:00 08/26/17 08:59 08/02/17 08:25 81 MG Midodrine (Proamatine Tab) 2.5 mg TID@,,17 PO 07/27/17 17:00 08/23/17 16:59 08/02/17 12:35 2.5 MG Furosemide (Lasix Tab) 80 mg BID17 PO 07/31/17 17:00 08/30/17 16:59 08/02/17 08:26 80 MG Insulin Glargine (Lantus Solostar Pen) 16 units QPM SC 07/31/17 21:00 08/30/17 20:59 08/01/17 20:39 16 UNITS Amiodarone HCl (Cordarone Tab) 200 mg BIDM PO 08/02/17 17:00 09/01/17 16:59 Metoprolol Succinate (Toprol Xl Tab) 100 mg BID PO 08/02/17 21:00 09/01/17 20:59 Objective Vital Signs Date Time Temp Pulse Resp B/P (MAP) Pulse Ox O2 Delivery O2 Flow Rate FiO2 08/02/17 16:00 95 Nasal Cannula 5.0 08/02/17 15:37 36.4 82 18 104/58 (73) 94 Nasal Cannula 5.0 08/02/17 12:42 Nasal Cannula 5.0 08/02/17 11:11 36.4 90 18 109/71 (84) 94 Nasal Cannula 5.0 08/02/17 09:01 Nasal Cannula 5.0 08/02/17 08:33 99 110/70 (83) 08/02/17 07:18 36.6 97 20 97/59 (72) 98 Nasal Cannula 5.0 08/02/17 04:00 Nasal Cannula 5.0 08/02/17 04:00 36.5 103 15 99/65 (76) 91 Nasal Cannula 5.0 08/02/17 00:14 85 18 112/56 (74) 100 Nasal Cannula 5.0 08/01/17 23:59 Nasal Cannula 5.0 08/01/17 20:00 Nasal Cannula 5.0 08/01/17 19:53 36.9 101 26 99/61 (74) 90 Nasal Cannula 5.0 Physical Exam General Appearance: no apparent distress Respiratory/Chest: no respiratory distress, no accessory muscle use, + decreased breath sounds Cardiovascular: regular rate, rhythm, no edema, no murmur Extremities: normal inspection, no pedal edema Neurologic/Psychiatric: no motor/sensory deficits, alert, normal mood/affect Laboratory Results Last 24 Hours Test 08/01/17 20:20 08/02/17 07:30 08/02/17 08:03 08/02/17 11:26 Bedside Glucose 189 mg/dl 124 mg/dl 144 mg/dl White Blood Count 6.66 K/uL Red Blood Count 3.22 M/uL Hemoglobin 9.4 g/dL Hematocrit 31.0 % Mean Corpuscular Volume 96.3 fL Mean Corpuscular Hemoglobin 29.2 pg Mean Corpuscular Hemoglobin Concent 30.3 g/dl RDW Standard Deviation 51.2 fL RDW Coefficient of Variation 14.6 % Platelet Count 199 K/uL Mean Platelet Volume 10.4 fL Sodium Level 136 mmol/L Potassium Level 4.8 mmol/L Chloride Level 100 mmol/L Carbon Dioxide Level 31 mmol/L Anion Gap 5.0 mmol/L Blood Urea Nitrogen 29 mg/dl Creatinine 3.28 mg/dl Est Creatinine Clear Calc Drug Dose 22.7 ml/min Estimated GFR () 18.8 Estimated GFR (Non- 16.3 BUN/Creatinine Ratio 8.9 Random Glucose 136 mg/dl Calcium Level 8.4 mg/dl Magnesium Level 2.1 mg/dl Assessment and Plan 87 yo M who presents with hyperkalemia and acute on chronic renal failure. He was admitted to the ICU and underwent temporizing measures until a HD catheter could be placed and has been receiving dialysis as inpatient since that time. He has afib w RVR and hypotension. Midodrine was added to help keep his BP up while dialyzing and removing ultrafiltrate. As his BP is improving this is being weaned down. Additionally Cardiology has added amiodarone and has been titrating his Metoprolol to help control his heart rate which is more controlled today. He became more short of breath yesterday 2/2 acute on chronic diastolic heart failure and was started back on diuretics in addition to removing fluid in dialysis. Today he reports that he is doing well, denies chest pain, has frustrations with his inability to move well and is still requiring a bit more oxygen than his baseline. Tolerating PO. 1. Acute on chronic congestive heart failure with EF of 40%- diuretics were restarted yesterday in addition to fluid removal in dialysis to help manage fluid status. Plan is for another HD session in am (). PO Diuretics were restarted. 1/3 continue PO diuretics HD on and then d/c to SNF ([facility]) otherwise, I'll continue amiodarone, metoprolol, Eliquis 08/01/17 continue PO diuretics HD today - 2 2. Atrial fibrillation with RVR-digoxin was stopped on admission in setting of worsening renal function on admission. Of note, he was not on anticoagulation coming into the hospital because of hematuria on coumadin in the past. He has now been started on renally dosed Eliquis and is being monitored closely and doing well. Improved heart rate control with up titration of Metoprolol to 100mg PO BID. Pt has also been on an amiodarone load since 07/23 and is being monitored by Cards and on a good dose to be discharged on. Continues in a flutter rhythm-will likely follow-up as outpatient for consideration of DCCV in a couple of weeks after appropriate anticoagulation. 1/2 for now, would continue metoprolol and amiodarone as per cardiology Eliquis for anticoagulation 3. 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 Management per Nephrology service-MWF dialysis schedule. Per Nephro. 4. Thrombocytopenia-improved. Per Hematology, it is OK to use heparin in this case if needed and to use antiplatelets if needed. Heparin was removed from his allergy list. Will let Nephrology know this is fine for HD and ASA was added back. He has had a false positive PF4 Ab in the past and this admission and does not appear to have HIT based on two negative serotonin release assay tests. 5. CAD status post stent placement. Stable, no symptoms at this time. Continue beta kelly, statin and added back ASA 81 based on Hematology recs. Plavix was stopped in setting of thrombocytopenia. Eliquis was started at renal dose (2.5mg PO BID) while monitoring platelet count which is improved. 6. Hypotension-improved on midodrine which was reduced by Cards. 7. Chronic respiratory failure secondary to COPD-Stable, no wheezing on exam. On Advair and albuterol p.r.n. Continuous supplemental oxygen. 8. BPH-recent issue with urinary retention. Wallace was placed in ER and flomax was stopped as patient had hypotension and was started on midodrine. Pt passed TOV here in the hospital and remains on finasteride 5mg PO QHS. Needs outpatient Urology follow-up. 9. Complicated UTI/prostatitis per ID team. Completed the recommended 10 days of Invanz therapy. 10. Anemia-chronic, stable, likely multifactorial including 2/2 frequent phlebotomy and anemia of CKD as well as other chronic diseases. Cont to monitor. 11. DMII-controlled on ISS/glargine. Appreciate pharmacy assistance with management. DVT proph-Eliquis Full Code Dispo-to rehab when bed available and breathing is at baseline.
[2017-08-02] MEDS: METOPROLOL SUCC 50MG EXT REL TAB PO SCH (21:20)
[2017-08-02] MEDS: FINASTERIDE 5 MG TAB PO SCH (21:21)
[2017-08-02] MEDS: SIMVASTATIN 40 MG TAB PO SCH (21:22)
[2017-08-02] MEDS: GABAPENTIN 300 MG CAP PO SCH (21:22)
[2017-08-02] MEDS: INSULIN GLARGINE SOLOSTAR 100 UNITS/ML 3 ML PEN SC SCH (21:23)
[2017-08-03] VITALS (23 sets, daily range): BP systolic 102–136; BP diastolic 55–100; PULSE 66–100; TEMP 36.4–36.7; O2SAT 90–96
[2017-08-03] MEDS: CALCIUM ACETATE 667MG GELCAP PO SCH ×3 (08:00→16:29)
[2017-08-03] MEDS: MIDODRINE 2.5 MG TAB PO SCH ×3 (08:00→16:29)
[2017-08-03] MEDS: INSULIN ASPART 100 UNITS/ML 3 ML PEN SC SCH ×2 (09:06→13:12)
--- NOTE | 2017-08-03 09:59 | PROGRESS NOTE ---
DATE: 08/03/2017 SUBJECTIVE: The patient was seen during dialysis. He is tolerating it very well so far. Blood pressure is borderline low at 101 systolic. Dialysis catheter is working fine with good blood flow. OBJECTIVE: HEENT: Mucous membrane is moist. NECK: Supple. No jugular venous distention. CHEST: Bilateral decreased breath sounds secondary to lack of inspiratory effort. CARDIOVASCULAR: S1 and S2, regular. Soft systolic murmur heard. ABDOMEN: Soft, nontender, and obese. EXTREMITIES: Shows 1+ edema. There were no labs from this morning. ASSESSMENT AND PLAN: An 87-year-old male with end-stage renal disease on chronic hemodialysis, now getting dialysis. We will do for 3 hours 30 minutes and take 3 kilo off on a 2K bath.
[2017-08-03] MEDS: FUROSEMIDE 80 MG TAB PO SCH ×2 (12:26→16:30)
[2017-08-03] MEDS: APIXABAN 2.5 MG TAB PO SCH (12:28)
[2017-08-03] MEDS: ASPIRIN 81 MG ECTAB PO SCH (12:29)
[2017-08-03] MEDS: POLYETHYLENE (MIRALAX) 17 GM PACK PO SCH (12:29)
[2017-08-03] MEDS: AMIODARONE 200 MG TAB PO SCH ×2 (12:29→16:30)
[2017-08-03] MEDS: DOCUSATE SODIUM 100 MG CAP PO SCH (12:29)
[2017-08-03] MEDS: FLUTICASONE/SALMETEROL 250/50 (ADVAIR) 14 PUFF/1 INHALER INH SCH (12:29)
[2017-08-03] MEDS: METOPROLOL SUCC 50MG EXT REL TAB PO SCH (12:30)
--- NOTE | 2017-08-03 15:15 | Progress Note ---
Subjective Date of Service: Aug 03, 2017. Subjective Pt evaluation today including: conversation w/ patient, physical exam, lab review, review of studies, review of inpatient medication list Saw/examined the patient in room 283 He is doing well today; denies chest pain or shortness of breath received dialysis today, 3L removed this AM No other issues to note Problem List Medical Problems: (1) ARF (acute renal failure) Status: Acute (2) ARF (acute renal failure) Status: Acute (3) Dehydration Status: Acute (4) Diverticulitis Status: Acute (5) Hyperglycemia Status: Acute (6) Hyperkalemia Status: Acute (7) Hypermagnesemia Status: Acute (8) Lower GI bleed Status: Acute (9) Pancreatitis Status: Acute (10) Renal failure Status: Acute (11) Renal failure Status: Acute (12) Urinary retention Status: Acute (13) UTI (urinary tract infection) Status: Acute Review of Systems Constitutional: + weakness Respiratory: No cough, No sputum, No shortness of breath Cardiac: No chest pain Medications Current Inpatient Medications Medications (Trade) Dose Ordered Sig/Ronak Route Start Time Stop Time Status Last Admin Dose Admin Finasteride (Proscar Tab) 5 mg HS PO 07/17/17 21:00 08/16/17 20:59 08/02/17 21:21 5 MG Salmeterol Xinafoate/ Fluticasone (Advair Diskus 250/50 Inh) 1 puff BID INH 07/17/17 09:00 08/16/17 08:59 08/03/17 12:29 1 PUFF Gabapentin (Neurontin Cap) 300 mg HS PO 07/17/17 21:00 08/16/17 20:59 08/02/17 21:22 300 MG Nitroglycerin (Nitrostat Tab) 0.4 mg UD PRN UT 07/16/17 21:45 08/15/17 21:44 Simvastatin (Zocor Tab) 40 mg QPM PO 07/17/17 21:00 08/16/17 20:59 08/02/17 21:22 40 MG Albuterol (Ventolin Hfa Inhaler) 2 puffs Q4H PRN INH 07/16/17 21:45 08/15/17 21:44 Miscellaneous Information (Consult Glycemic Management Pharmacy) 1 ea UD PRN N/A 07/17/17 10:40 08/16/17 10:39 Insulin Aspart (novoLOG ASPART) SLIDING SCALE ACHS SC 07/18/17 16:45 08/17/17 16:44 08/03/17 13:12 5 UNITS Al Hydroxide/Mg Hydroxide (Maalox Susp) 15 ml Q6H PRN PO 07/18/17 20:45 08/17/17 20:44 Docusate Sodium (coLACE CAP) 100 mg BID PO 07/19/17 09:00 08/18/17 08:59 08/03/17 12:29 100 MG Calcium Acetate (Phoslo Cap) 667 mg TIDM PO 07/19/17 07:15 08/18/17 07:14 08/03/17 12:32 667 MG Ondansetron HCl (Zofran Inj) 4 mg Q6H PRN IV 07/19/17 17:00 08/18/17 16:59 07/19/17 17:46 4 MG Polyethylene (Miralax Powder Packet) 17 gm DAILY PO 07/20/17 09:00 08/19/17 08:59 08/03/17 12:29 17 GM Apixaban (Eliquis Tab) 2.5 mg BID PO 07/24/17 21:00 08/23/17 20:59 08/03/17 12:28 2.5 MG Aspirin (Ecotrin Tab) 81 mg QAM PO 07/27/17 09:00 08/26/17 08:59 08/03/17 12:29 81 MG Midodrine (Proamatine Tab) 2.5 mg TID@08,,17 PO 07/27/17 17:00 08/23/17 16:59 08/03/17 12:31 2.5 MG Furosemide (Lasix Tab) 80 mg BID17 PO 07/31/17 17:00 08/30/17 16:59 08/03/17 12:26 80 MG Insulin Glargine (Lantus Solostar Pen) 16 units QPM SC 07/31/17 21:00 08/30/17 20:59 08/02/17 21:23 16 UNITS Amiodarone HCl (Cordarone Tab) 200 mg BIDM PO 08/02/17 17:00 09/01/17 16:59 08/03/17 12:29 200 MG Metoprolol Succinate (Toprol Xl Tab) 100 mg BID PO 08/02/17 21:00 09/01/17 20:59 08/03/17 12:30 100 MG Objective Vital Signs Date Time Temp Pulse Resp B/P (MAP) Pulse Ox O2 Delivery O2 Flow Rate FiO2 08/03/17 12:23 66 22 103/63 (76) 96 Room Air 08/03/17 12:00 95 Nasal Cannula 5.0 08/03/17 11:25 36.4 89 109/57 (74) 08/03/17 11:15 88 103/69 08/03/17 11:03 36.4 76 22 95 Nasal Cannula 08/03/17 11:00 76 110/75 08/03/17 10:45 81 107/81 08/03/17 10:30 79 102/76 08/03/17 10:15 76 120/68 08/03/17 10:00 89 116/74 08/03/17 09:45 96 127/100 08/03/17 09:30 89 121/59 08/03/17 09:15 85 109/55 08/03/17 09:00 88 112/76 08/03/17 08:45 96 107/68 08/03/17 08:30 100 127/71 08/03/17 08:15 98 134/62 08/03/17 08:00 36.4 100 136/64 (88) 08/03/17 07:49 95 Nasal Cannula 5.0 08/03/17 07:25 36.4 69 22 123/75 (91) 95 Nasal Cannula 5.0 08/03/17 04:54 36.7 83 19 110/70 (83) 95 Nasal Cannula 6.0 08/03/17 04:00 93 Nasal Cannula 5.0 08/03/17 00:00 Nasal Cannula 6.0 08/03/17 00:00 22 90 Nasal Cannula 6.0 08/02/17 23:56 36.7 98 18 105/58 (74) 89 Nasal Cannula 5.0 08/02/17 20:21 36.4 93 18 106/70 (82) 08/02/17 20:00 95 Nasal Cannula 5.0 08/02/17 16:00 95 Nasal Cannula 5.0 08/02/17 15:37 36.4 82 18 104/58 (73) 94 Nasal Cannula 5.0 Physical Exam General Appearance: no apparent distress Respiratory/Chest: no respiratory distress, no accessory muscle use, + decreased breath sounds Cardiovascular: regular rate, rhythm, no edema, no murmur Abdomen: normal bowel sounds, non tender, soft Extremities: normal inspection, no pedal edema Laboratory Results Last 24 Hours Test 08/02/17 17:57 08/02/17 20:46 08/03/17 07:13 08/03/17 12:18 Bedside Glucose 97 mg/dl 109 mg/dl 128 mg/dl 120 mg/dl Assessment and Plan 87 yo M who presents with hyperkalemia and acute on chronic renal failure. He was admitted to the ICU and underwent temporizing measures until a HD catheter could be placed and has been receiving dialysis as inpatient since that time. He has afib w RVR and hypotension. Midodrine was added to help keep his BP up while dialyzing and removing ultrafiltrate. As his BP is improving this is being weaned down. Additionally Cardiology has added amiodarone and has been titrating his Metoprolol to help control his heart rate which is more controlled today. He became more short of breath yesterday 2/2 acute on chronic diastolic heart failure and was started back on diuretics in addition to removing fluid in dialysis. Today he reports that he is doing well, denies chest pain, has frustrations with his inability to move well and is still requiring a bit more oxygen than his baseline. Tolerating PO. August 03 To update; patient received dialysis today (August 03) Plan is to discharge to [facility] for rehab and will received dialysis three times weekly Appreciate cardiology input - plan is to continue b-kelly, amiodarone and Eliquis for his A. Fib Plan is to continue current dose of diuretics for Systolic CHF continue aspirin, statin, b-kelly for CAD completed antibiotic course for UTI outpatient Urology f/u for BPH 1. Acute on chronic congestive heart failure with EF of 40%- diuretics were restarted yesterday in addition to fluid removal in dialysis to help manage fluid status. Plan is for another HD session in am (). PO Diuretics were restarted. 08/02 continue PO diuretics HD on and then d/c to SNF ([facility]) otherwise, I'll continue amiodarone, metoprolol, Eliquis 08/01/17 continue PO diuretics HD today - 08/01 2. Atrial fibrillation with RVR-digoxin was stopped on admission in setting of worsening renal function on admission. Of note, he was not on anticoagulation coming into the hospital because of hematuria on coumadin in the past. He has now been started on renally dosed Eliquis and is being monitored closely and doing well. Improved heart rate control with up titration of Metoprolol to 100mg PO BID. Pt has also been on an amiodarone load since 07/23 and is being monitored by Cards and on a good dose to be discharged on. Continues in a flutter rhythm-will likely follow-up as outpatient for consideration of DCCV in a couple of weeks after appropriate anticoagulation. 2 for now, would continue metoprolol and amiodarone as per cardiology Eliquis for anticoagulation 3. 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 Management per Nephrology service-MWF dialysis schedule. Per Nephro. 4. Thrombocytopenia-improved. Per Hematology, it is OK to use heparin in this case if needed and to use antiplatelets if needed. Heparin was removed from his allergy list. Will let Nephrology know this is fine for HD and ASA was added back. He has had a false positive PF4 Ab in the past and this admission and does not appear to have HIT based on two negative serotonin release assay tests. 5. CAD status post stent placement. Stable, no symptoms at this time. Continue beta kelly, statin and added back ASA 81 based on Hematology recs. Plavix was stopped in setting of thrombocytopenia. Eliquis was started at renal dose (2.5mg PO BID) while monitoring platelet count which is improved. 6. Hypotension-improved on midodrine which was reduced by Cards. 7. Chronic respiratory failure secondary to COPD-Stable, no wheezing on exam. On Advair and albuterol p.r.n. Continuous supplemental oxygen. 8. BPH-recent issue with urinary retention. Wallace was placed in ER and flomax was stopped as patient had hypotension and was started on midodrine. Pt passed TOV here in the hospital and remains on finasteride 5mg PO QHS. Needs outpatient Urology follow-up. 9. Complicated UTI/prostatitis per ID team. Completed the recommended 10 days of Invanz therapy. 10. Anemia-chronic, stable, likely multifactorial including 2/2 frequent phlebotomy and anemia of CKD as well as other chronic diseases. Cont to monitor. 11. DMII-controlled on ISS/glargine. Appreciate pharmacy assistance with management. DVT proph-Eliquis Full Code Dispo-to rehab when bed available and breathing is at baseline.
[2017-08-03] MEDS ORDERED: MRLP17 PO (15:25)
[2017-08-03] MEDS ORDERED: PRMT25 PO (15:25)
[2017-08-03] MEDS ORDERED: TPRSR50 PO (15:25)
[2017-08-03] MEDS ORDERED: CLC100 PO (15:25)
[2017-08-03] MEDS ORDERED: CRD200 PO (15:25)
[2017-08-03] MEDS ORDERED: PHS667 PO (15:25)
[2017-08-03] MEDS ORDERED: ELQ25 PO (15:25)
[2017-08-03] MEDS ORDERED: NVLGIPEN SC (15:30)
[2017-08-03] MEDS ORDERED: INSDGIPEN SC (15:30)
--- NOTE | 2017-08-03 15:48 | Discharge Instructions ---
Discharge Instructions Date of Service Aug 03, 2017. Admission Reason for Admission: Arf,Hyperkalemia Discharge Discharge Diagnosis / Problem: End stage renal disease - now on dialysis, congestive heart failure Discharge Goals Goal(s): Decrease discomfort, Improve function, Diagnostic testing, Therapeutic intervention Activity Recommendations Activity Limitations: resume your previous activity . Instructions / Follow-Up Instructions / Follow-Up Patient should follow-up with primary care physician after stay at [facility] Patient has an appointment with cardiology on August 17 which he should keep Hemodialysis three times weekly - likely as per nephrology Patient to be on metoprolol succinate 100mg twice daily, amiodarone 200mg twice daily, and Eliquis 2.5mg daily Current Hospital Diet Patient's current hospital diet: Renal Diet, Diabetes Type 2 Diet Discharge Diet Recommended Diet: Diabetes Type 2 Diet, Renal Diet Procedures Procedures Performed: Perm Cath Insertion, Right Jugular Approach Ultrasound Localization of Right Jugular Vein Fluoscopy for Positioning Removal of Temporary Catheter Pending Studies Studies pending at discharge: no Laboratory Results Hemoglobin A1c Test 07/18/17 04:36 Range/Units Estimated Average Glucose 160 mg/dl Hemoglobin A1c 7.2 H 4.5-5.6 % Medical Emergencies . Who to Call and When: Medical Emergencies: If at any time you feel your situation is an emergency, please call 911 immediately. . Non-Emergent Contact Non-Emergency issues call your: Primary Care Provider, Block Mechanic, Senior Living Sales Counselor . . "Provider Documentation" section prepared by Pk Gomez. . VTE Core Measure Inpt VTE Proph given/why not?: Other Anticoagulation (Eliquis)
--- NOTE | 2017-08-03 15:54 | Discharge Summary ---
Discharge Summary Date of Service Aug 03, 2017. 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 Acute on Chronic Systolic CHF Atrial Fibrillation CAD Consultations: Nephro-Oncu Lucio Medication Reconciliation New Medications: Amiodarone HCl (Amiodarone HCl) 200 Mg Tab 200 MG PO BIDM for 30 Days, #60 TAB Apixaban (Eliquis) 2.5 Mg Tab 2.5 MG PO BID for 30 Days, #60 TAB Calcium Acetate (Phoslo 667 Mg) 667 Mg Cap 667 MG PO TIDM for 30 Days, #90 CAP Docusate Sodium (Docusate Sodium) 100 Mg Cap 100 MG PO BID for 30 Days, #60 CAP Insulin Aspart (Novolog Flexpen) 100 Units/Ml Inj 4 UNITS SC TIDM for 30 Days, #5 PEN Insulin Glargine (Lantus Solostar) 100 Unit/Ml Inj 16 UNITS SC QPM for 30 Days, #5 PEN Metoprolol Succinate (Metoprolol Succinate ER) 50 Mg Tabcr 100 MG PO BID for 30 Days, #120 TABS Midodrine (Midodrine HCl) 2.5 Mg Tab 2.5 MG PO TID@08,12,17 for 30 Days, #90 TAB Polyethylene (Miralax) 17 Gm Pow 17 GM PO DAILY for 30 Days, #30 PKT Continued Medications: Albuterol Sulfate (Proair Respiclick) 108 Mcg/Act Aer 2 PUFFS INH Q4H PRN for SOB/Wheezing Aspirin (Aspirin Ec) 81 Mg Tab 81 MG PO QAM Finasteride (Proscar) 5 Mg Tab 5 MG PO HS Fluticasone Prop/Salmeterol (Advair Diskus 250/50 60 Dose) 1 Ea Aerp 1 PUFF INH BID Furosemide (Furosemide) 40 Mg Tab 80 MG PO BID Gabapentin (Neurontin) 300 Mg Cap 300 MG PO HS Home O2 Therapy (Oxygen) Gas 2 LITERS NA CONTINOUS Nitroglycerin (Nitrostat) 0.4 Mg Tab 0.4 MG UT UD PRN for Chest Pain Simvastatin (Simvastatin) 40 Mg Tab 40 MG PO QPM Tamsulosin HCl (Tamsulosin HCl) 0.4 Mg Cap 0.4 MG PO HS Discontinued Medications: Clopidogrel (Plavix) 75 Mg Tab 75 MG PO QAM Digoxin (Digoxin) 0.125 Mg Tab 0.125 MG PO 2XWK Monday and Monday Fish Oil (Dudley-3) 1 Ea Cap 1 CAP PO HS, 0 Refills Insulin Glargine (Lantus) 100 Unit/Ml Inj 50 UNITS SC BID Isosorbide Dinitrate (Isosorbide Dinitrate) 5 Mg Tab 5 MG PO TID@0700,1200,1700 for 30 Days, #90 TAB Metoprolol Succ (Toprol Xl) (Toprol-Xl ) 100 Mg Tabcr 100 MG PO DAILY, #30 Admission Information HPI (per Admitting provider): DATE OF ADMISSION: 07/16/2017 CHIEF COMPLAINT: generalized weakness. HISTORY OF PRESENT ILLNESS: This is an 87-year-old male with past medical history significant for type 2 diabetes mellitus, chronic kidney disease stage IV CAd s/p stent, COPD, chronic respiratory failure, history of atrial fibrillation, history of lung nodule, history of BPH amira was recently in the hospital for acute on chronic respiratory failure from COPD and CHF and at that time we nephrology recommended dialysis which the patient refused. he was supposed to go to rehab/ snf but he stayed only day and went home.Lives alone. Recently saw maintenance millwright and recommended snf placement as not safe to go home and recommended dialysis both of which patient refused,.At that time Cardiology recommended Hospice.At home patient not getting up from the bed and not eating and non compliant with meds. Complaining generalized weakness. Family brought him to Er. Today, in the ER, potassium was 6.9, creatinine 6's, sodium 127. He received treatment for hyperkalemia in the ER with calcium gluconate, dextrose with insulin and bicarb.. Apparently, the patient is alert and awake and oriented and now ojk for dialysis and wants to be full code. Family member asked me to double check code status as yesterday he just wanted to at home.But patinet again states he wants dialysis and wants to be full code. Some what lethargic but answes questions appropriately.Denies any chest pain, denied shortness of breath, denied nausea, no abdominal pain. no cough, no fever or chills. Apparently hemodynamics stable. ALLERGIES: IODINE, HEPARIN, SULFA . PAST MEDICAL HISTORY: As above PAST SURGICAL cardiac stents, Lithotripsy,ERCP,History inguinal hernia repair FAMILY HISTORY: Significant for mother with kidney failure. Father of [place]. REVIEW OF SYSTEMS: As per HPI. PHYSICAL EXAMINATION: GENERAL: The patient is alert and awake. Slightly lethargic VITAL SIGNS: Pulse 102, respiratory rate 18, blood pressure 118/78, oxygen 98% on 3lts. HEENT: No pallor, no icterus. MOHINDER. NECK no JVD no neck masses supple CVS s1 and s2 heard regular no murmurs RS: CTA b/l No accessory muscle use, no wheezing no crackles ABDOMEN: Soft, bowel sounds present. NO abdominal distention. No tenderness. CENTRAL NERVOUS SYSTEM: Cranial nerves intact II to XII. Nonfocal. EXTREMITIES: No edema, no erythema. LABORATORY STUDIES: Sodium 127, potassium 6.9, chloride 98, CO2 17, BUN 189, creatinine 6.2, serum glucose 206. Point of care lactic acid 1.01, total bilirubin 0.4, direct bilirubin 0.1, AST 8, ALT 17, alkaline phosphatase 88, total creatinine kinase 30. Troponin I 0.02. Lipase 2153. TSH 0.95. PT 10.2, INR 1, PTT 26.8. WBC 12.4, hemoglobin 14.8, hematocrit 42.9, platelets 199. Urinalysis positive for leukocyte esterase. Chest x-ray right basilar atelectasis versus early pulmonary edema CT of abdomen and pelvis, diverticulosis. Possible mild diverticulitis with possible cystitis. EKG sinus tachycardia at a rate of 102, left bundle branch block, left axis deviation. ASSESSMENT AND PLAN: This is an 87-year-old male who presents with hyperkalemia and acute renal failure and chronic kidney disease stage IV. 1. Hyperkalemia. The patient received insulin, dextrose, calcium gluconate and bicarbonate in the ER . The patient has chronic kidney disease stage IV and need dialysis . Refused dialysis multiple times in the past but agreeable now. Discussed with nephrology advised for one dose of iv Lasix and to start on bicarb drip and close f/u labs.As there was also discussion about hospice care nephrology will readdress about dialysis in am. 2. Acute renal failure, chronic kidney disease stage IV. Plan for dialysis in the morning after discussing with patent and family by nephrology. 3. Chronic congestive heart failure with EF of 40%, holding diuretics . To give one dose of IV Lasix 80 mg . Starting on bicarb drip. we will monitor for volume overload. 4. CAd status post stent placement. Continue aspirin, Plavix, beta kelly, nitrates and statin. We will follow the troponin. 4. Hypertension. Continue nitrates and Toprol-XL will monitor 5 Chronic respiratory failure secondary to chronic obstructive pulmonary disease. Stable. On Advair and albuterol p.r.n. 6 Hx of A fib rate controlled on Toprol xl holding digoxin for renal failure. Not on anticoagulation secondary to hematuria while on Coumadin.. 7. BPH on Flomax recently had urinary retention. f/u with urology. placed on chambers in ER and drained good amount of urine. 8. Dvt px scds Disposition close monitor in icu code status full code for now Hospital Course 87 yo M who presents with hyperkalemia and acute on chronic renal failure. He was admitted to the ICU and underwent temporizing measures until a HD catheter could be placed and has been receiving dialysis as inpatient since that time. He has afib w RVR and hypotension. Midodrine was added to help keep his BP up while dialyzing and removing ultrafiltrate. As his BP is improving this is being weaned down. Additionally Cardiology has added amiodarone and has been titrating his Metoprolol to help control his heart rate which is more controlled today. He became more short of breath yesterday 2/2 acute on chronic diastolic heart failure and was started back on diuretics in addition to removing fluid in dialysis. Today he reports that he is doing well, denies chest pain, has frustrations with his inability to move well and is still requiring a bit more oxygen than his baseline. Tolerating PO. August 03 To update; patient received dialysis today (August 03) Plan is to discharge to [facility] for rehab and will received dialysis three times weekly Appreciate cardiology input - plan is to continue b-kelly, amiodarone and Eliquis for his A. Fib Plan is to continue current dose of diuretics for Systolic CHF continue aspirin, statin, b-kelly for CAD completed antibiotic course for UTI outpatient Urology f/u for BPH 1. Acute on chronic congestive heart failure with EF of 40%- diuretics were restarted yesterday in addition to fluid removal in dialysis to help manage fluid status. Plan is for another HD session in am (). PO Diuretics were restarted. 1/3 continue PO diuretics HD on and then d/c to [facility] ([facility]) otherwise, I'll continue amiodarone, metoprolol, Eliquis 08/01/17 continue PO diuretics HD today - 08/01 2. Atrial fibrillation with RVR-digoxin was stopped on admission in setting of worsening renal function on admission. Of note, he was not on anticoagulation coming into the hospital because of hematuria on coumadin in the past. He has now been started on renally dosed Eliquis and is being monitored closely and doing well. Improved heart rate control with up titration of Metoprolol to 100mg PO BID. Pt has also been on an amiodarone load since 07/23 and is being monitored by Cards and on a good dose to be discharged on. Continues in a flutter rhythm-will likely follow-up as outpatient for consideration of DCCV in a couple of weeks after appropriate anticoagulation. 08/01 for now, would continue metoprolol and amiodarone as per cardiology Eliquis for anticoagulation 3. 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 Management per Nephrology service-MWF dialysis schedule. Per Nephro. 4. Thrombocytopenia-improved. Per Hematology, it is OK to use heparin in this case if needed and to use antiplatelets if needed. Heparin was removed from his allergy list. Will let Nephrology know this is fine for HD and ASA was added back. He has had a false positive PF4 Ab in the past and this admission and does not appear to have HIT based on two negative serotonin release assay tests. 5. CAD status post stent placement. Stable, no symptoms at this time. Continue beta kelly, statin and added back ASA 81 based on Hematology recs. Plavix was stopped in setting of thrombocytopenia. Eliquis was started at renal dose (2.5mg PO BID) while monitoring platelet count which is improved. 6. Hypotension-improved on midodrine which was reduced by Cards. 7. Chronic respiratory failure secondary to COPD-Stable, no wheezing on exam. On Advair and albuterol p.r.n. Continuous supplemental oxygen. 8. BPH-recent issue with urinary retention. Chambers was placed in ER and flomax was stopped as patient had hypotension and was started on midodrine. Pt passed TOV here in the hospital and remains on finasteride 5mg PO QHS. Needs outpatient Urology follow-up. 9. Complicated UTI/prostatitis per ID team. Completed the recommended 10 days of Invanz therapy. 10. Anemia-chronic, stable, likely multifactorial including 2/2 frequent phlebotomy and anemia of CKD as well as other chronic diseases. Cont to monitor. 11. DMII-controlled on ISS/glargine. Appreciate pharmacy assistance with management. DVT proph-Eliquis Full Code Dispo-to rehab when bed available and breathing is at baseline. Total time spent on discharge = 60 minutes This includes examination of the patient, discharge planning, medication reconciliation, and communication with other providers. Discharge Instructions Patient should follow-up with primary care physician after stay at [facility] Patient has an appointment with cardiology on August 17 which he should keep Hemodialysis three times weekly - likely as per nephrology Patient to be on metoprolol succinate 100mg twice daily, amiodarone 200mg twice daily, and Eliquis 2.5mg daily
== END 2017-08-03 17:22 | DRG 673 ==
LOC: C.EDB 17:54 → C.MSICU 21:56 → ENRESERV 21:59 → C.2E 07-19 14:26 → CANBEDREQ 07-22 20:33 → C.MED 08-02 02:04
PROVIDERS: ADMIT Internal Medicine; ATTEND Family Medicine
PROC: 0T9B70Z Drainage of Bladder with Drainage Device, Via Natural or Artificial Opening (ICD-10-PCS; 2017-07-16)
PROC: 06HM33Z Insertion of Infusion Device into Right Femoral Vein, Percutaneous Approach (ICD-10-PCS; 2017-07-17)
PROC: 02HV33Z Insertion of Infusion Device into Superior Vena Cava, Percutaneous Approach (ICD-10-PCS; principal; 2017-07-18 14:45)
PROC: 0JH60XZ Insertion of Tunneled Vascular Access Device into Chest Subcutaneous Tissue and Fascia, Open Approach (ICD-10-PCS; principal; 2017-07-18 14:45)
DX: N17.9 Acute kidney failure, unspecified (principal); I50.43 Acute on chronic combined systolic (congestive) and diastolic (congestive) heart failure; N39.0 Urinary tract infection, site not specified; I48.92 Unspecified atrial flutter; I13.2 Hypertensive heart and chronic kidney disease with heart failure and with stage 5 chronic kidney disease, or end stage renal disease; J96.11 Chronic respiratory failure with hypoxia; N18.6 End stage renal disease; E87.5 Hyperkalemia; R33.8 Other retention of urine; E86.0 Dehydration; E83.41 Hypermagnesemia; N40.1 Benign prostatic hyperplasia with lower urinary tract symptoms; I95.3 Hypotension of hemodialysis; D69.59 Other secondary thrombocytopenia; R16.1 Splenomegaly, not elsewhere classified; D63.1 Anemia in chronic kidney disease; N41.9 Inflammatory disease of prostate, unspecified; I48.0 Paroxysmal atrial fibrillation; I25.5 Ischemic cardiomyopathy; I25.10 Atherosclerotic heart disease of native coronary artery without angina pectoris; K80.20 Calculus of gallbladder without cholecystitis without obstruction; J44.9 Chronic obstructive pulmonary disease, unspecified; E11.22 Type 2 diabetes mellitus with diabetic chronic kidney disease; E78.5 Hyperlipidemia, unspecified; Z51.81 Encounter for therapeutic drug level monitoring; Z79.899 Other long term (current) drug therapy; Z79.4 Long term (current) use of insulin; Z79.02 Long term (current) use of antithrombotics/antiplatelets; Z79.82 Long term (current) use of aspirin; Z99.2 Dependence on renal dialysis; Z99.81 Dependence on supplemental oxygen; Z91.81 History of falling; Z95.5 Presence of coronary angioplasty implant and graft; Z87.891 Personal history of nicotine dependence; Z84.1 Family history of disorders of kidney and ureter; Z82.49 Family history of ischemic heart disease and other diseases of the circulatory system

== ENCOUNTER → 2017-08-04 | Outpatient (CLI) | payer OTHER ==
[~2017-08-04] MED LIST changes: +ALUMSUS2 PO; +AMIO200T4 PO; +APIX1TAB PO; +BISA10SU7 RE; +CALC667C4 PO; +CLC100 PO; -CLOP1TAB15 PO; +CRD200 PO; +DOCU100C31 PO; +DXY100 PO; +ELQ25 PO; +INSDGIPEN SC; +INSDGIPEN SQ; -ISR5 PO; +METO100T14 PO; -METO100T44 PO; +METO25TA3 PO; +MRLP17 PO; +NSPO EXT; +NVLGI/PEN SQ; +NVLGIPEN SC; -OMEG10007 PO; +OXYC-90 PO; +PHS667 PO; +POLY335019 PO; +PRMT25 PO; +SIMV-151 PO; +SODIENE PR; +TPRSR25 PO; +TPRSR50 PO; +TRAM-10 PO; +VNTHFA/IN INH; +[UNRECOGNIZED DRUG - CODE] PO
[2017-08-04 08:51] LABS: BASO % 0.6 %; BASO ABS # 0.04 K/uL (0-0.2); EOS ABS # 0.27 K/uL (0-0.5); HEMOGLOBIN 9.6 g/dL (14.0-18.0); IG# 0.09 K/uL (0.00-0.02); LYMPH % 10.2 %; LYMPH ABS # 0.69 K/uL (1.2-3.4); MEAN CELL VOLUME 96.1 fL (80-100); MEAN CORPUSCULAR HEMOGLOBIN 28.8 pg (25-34); MONO % 14.9 %; MONO ABS # 1.01 K/uL (0.11-0.59); NEUT ABS # 4.68 K/uL (1.4-6.5); PLATELET COUNT 210 K/uL (130-400); RED CELL DISTRIBUTION WIDTH CV 14.9 % (11.5-14.5); RED CELL DISTRIBUTION WIDTH SD 51.2 fL (36.4-46.3); WHITE BLOOD COUNT 6.78 K/uL (4.8-10.8)
[2017-08-04 09:02] LABS: HEMOGLOBIN A1C 6.9 % (4.5-5.6)
[2017-08-04 10:16] LABS: ALBUMIN 2.5 gm/dl (3.4-5.0); ALT/SGPT 16 U/L (12-78); AST/SGOT 6 U/L (15-37); BLOOD UREA NITROGEN 28 mg/dl (7-18); CALCIUM 8.5 mg/dl (8.5-10.1); CARBON DIOXIDE 28 mmol/L (21-32); CREATININE 3.31 mg/dl (0.60-1.40); GLUCOSE 120 mg/dl (70-99); POTASSIUM 4.5 mmol/L (3.5-5.1); SODIUM 135 mmol/L (136-145)
[2017-08-04 10:19] LABS: ALKALINE PHOSPHATASE 73 U/L (45-117); TOTAL PROTEIN 6.6 gm/dl (6.4-8.2)
== END ==
LOC: C.LABUPNIT 08:40
PROVIDERS: ATTEND Nurse Practitioner Family
DX: N18.6 End stage renal disease (principal); E08.29 Diabetes mellitus due to underlying condition with other diabetic kidney complication

== ENCOUNTER 2017-08-11 14:50 | Inpatient (IN) | payer OTHER ==
[~2017-08-11] VITALS: Ht 185.4 cm; Wt 120.0 kg
[~2017-08-11 14:50] MED LIST changes: -ALUMSUS2 PO; -AMIO200T4 PO; -APIX1TAB PO; -BISA10SU7 RE; -CALC667C4 PO; -DOCU100C31 PO; -DXY100 PO; -INSDGI SC; -INSDGIPEN SQ; -LNX125 PO; -METO100T14 PO; -METO25TA3 PO; -NSPO EXT; -NVLGI/PEN SQ; -OXYC-90 PO; -POLY335019 PO; -SIMV-151 PO; -SODIENE PR; -TPRSR25 PO; -TRAM-10 PO; -VNTHFA/IN INH; -[UNRECOGNIZED DRUG - CODE] PO
[2017-08-11] MEDS ORDERED: SODIUM CHLORIDE 0.9% 500ML 500 ML IV STA (15:29)
[2017-08-11] MEDS ORDERED: NVLGI/PEN SQ (15:30)
[2017-08-11] MEDS ORDERED: BISA10SU7 RE (15:30)
[2017-08-11] MEDS ORDERED: ALUMSUS2 PO (15:30)
--- NOTE | 2017-08-11 15:44 | EMERGENCY ROOM VISIT NOTE ---
History Report prepared by Jacquie: Sapphire Morin Under the Supervision of: Sheila WalkerO. First contact with patient: 15:22 Chief Complaint: SHORTNESS OF BREATH Stated Complaint: FLUID RETENTION Nursing Triage Summary: pt brought BLS from [facility] and the [facility] dialysis for fluid retention was somewhat hypotensive with SBP 80s-90s. Pt had 3 hrs of dialysis, c/o mild SOB. History of Present Illness The patient is a 87 year old male who presents to the Emergency Room with complaints of persistent low blood pressure that was noted earlier today while the patient was at a 3 hour dialysis. The patient denies any nausea, vomiting, diarrhea, chest pain, fevers, leg swelling, trouble breathing, or pain anywhere. Source of History: patient Onset: earlier today Position: other (global) Quality: other (low blood pressure) Timing: other (persistent) Review of Systems See HPI for pertinent positives & negatives. A total of 10 systems reviewed and were otherwise negative. Past Medical & Surgical Medical Problems: (1) Atrial fibrillation (2) CAD (coronary artery disease) (3) Chronic hypoxemic respiratory failure (4) CKD (chronic kidney disease), stage IV (5) COPD (chronic obstructive pulmonary disease) (6) DM2 (diabetes mellitus, type 2) (7) ESRD on dialysis (8) HLD (hyperlipidemia) (9) HTN (hypertension) (10) Pulmonary nodules (11) Systolic and diastolic CHF, chronic Surgical Problems: (1) H/O hernia repair (2) s/p laser vaporization of prostate 11/01/11 (3) Transurethral prostatectomy Family History Heart disease Social History Smoking Status: Never Smoker Drug Use: none Marital Status: Housing Status: lives alone Occupation Status: retired Current/Historical Medications Scheduled Amiodarone HCl (Amiodarone HCl), 200 MG PO BIDM Apixaban (Eliquis), 2.5 MG PO BID Aspirin (Aspirin Ec), 81 MG PO QAM Calcium Acetate (Phoslo 667 Mg), 667 MG PO TIDM Docusate Sodium (Docusate Sodium), 100 MG PO BID Finasteride (Proscar), 5 MG PO HS Fluticasone Prop/Salmeterol (Advair Diskus 250/50 60 Dose), 1 PUFF INH BID Furosemide (Furosemide), 80 MG PO BID Gabapentin (Neurontin), 300 MG PO HS Insulin Aspart (Novolog Flexpen), SQ ACHS Insulin Glargine (Lantus Solostar), 16 UNITS SC QPM Metoprolol Succinate (Metoprolol Succinate ER), 100 MG PO BID Midodrine (Midodrine HCl), 2.5 MG PO TID@08,12,17 Polyethylene (Miralax), 17 GM PO DAILY Simvastatin (Simvastatin), 40 MG PO QPM Scheduled PRN Aluminum/Magnesium/Simeth (Maalox Max Susp), 15 ML PO Q6 PRN for Indigestion Bisacodyl (Bisac-Evac), 1 RE for Constipation Nitroglycerin (Nitrostat), 0.4 MG UT UD PRN for Chest Pain Sodium Phosphate/Biphosphate (Fleet Enema), 1 EA HI DAILY PRN for Constipation Allergies Coded Allergies: Iodine (Verified Allergy, Mild, HIVES, 07/16/17) Heparin (Verified Allergy, Unknown, UNKNOWN, 08/11/17) OK TO GIVE DWELL Sulfa Antibiotics (Verified Allergy, Unknown, ENTERED SULFA- UNKNOWN, 07/16/17) Physical Exam Vital Signs Date Time Temp Pulse Resp B/P (MAP) Pulse Ox O2 Delivery O2 Flow Rate FiO2 08/11/17 17:17 78 20 105/62 93 Nasal Cannula 4.0 08/11/17 16:02 82 08/11/17 15:12 74 105/64 94 Nasal Cannula 4.0 08/11/17 15:12 Nasal Cannula 4.0 08/11/17 15:04 Nasal Cannula 4.0 08/11/17 15:04 36.7 79 20 99/60 94 Nasal Cannula 4.0 Physical Exam GENERAL: Patient is awake, alert, and in no acute distress. Patient is resting comfortably and showing no signs of anxiety EYES: The conjunctivae are clear. The pupils are round and reactive. EARS, NOSE, MOUTH AND THROAT: The nose is without any evidence of any deformity. Mucous membranes are moist tongue is midline NECK: The neck is nontender and supple. RESPIRATORY: Lung sounds diminished at both bases, rales at both bases, no tachypnea. CARDIOVASCULAR: Regular rate and irregular rhythm noted to auscultation, there are no definite murmurs noted GASTROINTESTINAL: The abdomen is soft. Bowel sounds are present in all quadrants. Abdomen is nontender MUSCULOSKELETAL/EXTREMITIES: There is no evidence of gross deformity full range of motion is noted in the hips and shoulders SKIN: Pedal edema bilaterally. NEUROLOGIC: Patient is awake alert and oriented x3 strength is symmetric patellar reflexes are 2+ bilaterally Medical Decision & Procedures ER Provider Diagnostic Interpretation: Radiology results as stated below per my review and radiologist interpretation: CHEST ONE VIEW PORTABLE CLINICAL HISTORY: ABDOMINAL PAIN/GI COMPARISON STUDY: 07/30/2017 FINDINGS: PermCath placed in the superior vena cava.] Paratracheal superior mediastinal prominence unchanged. Chronic parenchymal infiltrative and reticular nodular changes throughout both hemithoraces. Unchanging consolidative change left base. IMPRESSION: Chronic change. Moderate stable cardiomegaly. Unchanged bilateral parenchymal reticular nodular prominence. The above report was generated using voice recognition software. It may contain grammatical, syntax or spelling errors. Electronically signed by: Braulio Molina M.D. 08/11/2017 3:48 PM Dictated Date/Time: 08/11/2017 3:47 PM Laboratory Results Test 08/11/17 15:40 Immature Granulocyte % (Auto) 2.9 % White Blood Count 7.29 K/uL (4.8-10.8) Red Blood Count 2.94 M/uL (4.7-6.1) Hemoglobin 8.5 g/dL (14.0-18.0) Hematocrit 27.6 % (42-52) Mean Corpuscular Volume 93.9 fL (80-100) Mean Corpuscular Hemoglobin 28.9 pg (25-34) Mean Corpuscular Hemoglobin Concent 30.8 g/dl (32-36) Platelet Count 138 K/uL (130-400) Mean Platelet Volume 10.2 fL (7.4-10.4) Neutrophils (%) (Auto) 77.6 % Lymphocytes (%) (Auto) 6.7 % Monocytes (%) (Auto) 10.2 % Eosinophils (%) (Auto) 2.1 % Basophils (%) (Auto) 0.5 % Neutrophils # (Auto) 5.66 K/uL (1.4-6.5) Lymphocytes # (Auto) 0.49 K/uL (1.2-3.4) Monocytes # (Auto) 0.74 K/uL (0.11-0.59) Eosinophils # (Auto) 0.15 K/uL (0-0.5) Basophils # (Auto) 0.04 K/uL (0-0.2) Immature Granulocyte # (Auto) 0.21 K/uL (0.00-0.02) Red Blood Cell Morphology Unremarkable Prothrombin Time 10.6 SECONDS (9.0-12.0) Prothromb Time International Ratio 1.0 (0.9-1.1) Activated Partial Thromboplast Time 29.5 SECONDS (21.0-31.0) Partial Thromboplastin Ratio 1.1 Total Bilirubin 0.3 mg/dl (0.2-1) Direct Bilirubin < 0.1 mg/dl (0-0.2) Aspartate Amino Transf (AST/SGOT) 14 U/L (15-37) Alanine Aminotransferase (ALT/SGPT) 24 U/L (12-78) Alkaline Phosphatase 71 U/L (45-117) Troponin I < 0.015 ng/ml (0-0.045) Total Protein 6.8 gm/dl (6.4-8.2) Albumin 2.6 gm/dl (3.4-5.0) Lipase 317 U/L (73-393) Laboratory results per my review. Medications Administered Medications (Trade) Dose Ordered Sig/Ronak Route Start Time Stop Time Status Last Admin Dose Admin Sodium Chloride 500 ml @ 999 mls/hr Q31M STAT IV 08/11/17 15:29 08/11/17 15:59 DC 08/11/17 15:42 999 MLS/HR ECG Indication: other (low blood pressure) Rate (beats per minute): 76 Rhythm: atrial flutter Findings: PVC, other (no acute ST segments noted) Change: no significant change (07/27/17) ED Course 1528: The patient was evaluated in room C7. A complete history and physical examination were performed. 1529: Ordered Sodium Chloride 500ml @ 999mls/hr IV. 1649: I discussed the patient's case with Dr. Fraser, nephrology. He stated that the patient could not complete his dialysis because his blood pressure was too low. The patient will be evaluated for further management. 1720: I discussed the patient's case with Siobhan Cavazos NP. The patient will be evaluated for further management. Medical Decision Prior records/ancillary studies reviewed and summarized above. Nursing notes reviewed. Additional history obtained from nursing staff. Differential diagnosis: Etiologies such as metabolic, infection, hypo/hyperglycemia, electrolyte abnormalities, cardiac sources, intracerebral event, toxicologic, neurologic, as well as others were entertained. The patient is an 87-year-old male who presented to the emergency department for an evaluation after dialysis. The patient was only able to have part of his dialysis today. He was sent to the emergency department because of low blood pressure. The patient's primary oncologist is concerned because the patient has very labile blood pressure. He is also 5 liters positive. The patient was sent to the emergency department for an evaluation and for admission for inpatient dialysis until he is pressure could be stabilized. I discussed his case with the on-call [facility] hospitalist group. They've agreed to evaluate the patient in the emergency department for further management and disposition. Medication Reconcilliation Current Medication List: was personally reviewed by me Blood Pressure Screening Patient's blood pressure: Low blood pressure Consults Time Called: 1649 Consulting Physician: Dr. Fraser, nephrology Returned Call: [phone] I discussed the patient's case with Dr. Fraser, nephrology. He stated that the patient could not complete his dialysis because his blood pressure was too low. The patient will be evaluated for further management. Additional Consults: Time Called: 1720 Consulted Physician: Siobhan Cavazos NP Returned Call: [phone] Additional Comments: I discussed the patient's case with Siobhan Cavazos NP. The patient will be evaluated for further management. Impression Primary Impression: Chronic renal failure Additional Impressions: End stage renal disease Hypotension Scribe Attestation The scribe's documentation has been prepared under my direction and personally reviewed by me in its entirety. I confirm that the note above accurately reflects all work, treatment, procedures, and medical decision making performed by me. Departure Information Dispostion Being Evaluated By Hospitalist Referrals Mukesh Cox (PCP) Forms HOME CARE DOCUMENTATION FORM, IMPORTANT VISIT INFORMATION Patient Instructions My [facility] Health Problem Qualifiers Primary Impression: Chronic renal failure Chronic kidney disease stage: unspecified stage Qualified Codes: N18.9 - Chronic kidney disease, unspecified
--- NOTE | 2017-08-11 15:50 | DIAGNOSTIC IMAGING REPORT ---
CHEST ONE VIEW PORTABLE CLINICAL HISTORY: ABDOMINAL PAIN/GI COMPARISON STUDY: 07/30/2017 FINDINGS: PermCath placed in the superior vena cava.] Paratracheal superior mediastinal prominence unchanged. Chronic parenchymal infiltrative and reticular nodular changes throughout both hemithoraces. Unchanging consolidative change left base. IMPRESSION: Chronic change. Moderate stable cardiomegaly. Unchanged bilateral parenchymal reticular nodular prominence. The above report was generated using voice recognition software. It may contain grammatical, syntax or spelling errors. Electronically signed by: Braulio Molina M.D. 08/11/2017 3:48 PM Dictated Date/Time: 08/11/2017 3:47 PM
[2017-08-11 15:59] LABS: BASO % 0.5 %; BASO ABS # 0.04 K/uL (0-0.2); EOS % 2.1 %; EOS ABS # 0.15 K/uL (0-0.5); HEMATOCRIT 27.6 % (42-52); HEMOGLOBIN 8.5 g/dL (14.0-18.0); IG# 0.21 K/uL (0.00-0.02); LYMPH % 6.7 %; LYMPH ABS # 0.49 K/uL (1.2-3.4); MEAN CELL VOLUME 93.9 fL (80-100); MEAN CORPUSCULAR HEMOGLOBIN 28.9 pg (25-34); MEAN CORPUSCULAR HGB CONC 30.8 g/dl (32-36); MEAN PLATELET VOLUME 10.2 fL (7.4-10.4); MONO % 10.2 %; MONO ABS # 0.74 K/uL (0.11-0.59); NEUT % 77.6 %; NEUT ABS # 5.66 K/uL (1.4-6.5); PLATELET COUNT 138 K/uL (130-400); RED CELL DISTRIBUTION WIDTH CV 14.9 % (11.5-14.5); RED CELL DISTRIBUTION WIDTH SD 50.5 fL (36.4-46.3); WHITE BLOOD COUNT 7.29 K/uL (4.8-10.8)
[2017-08-11 16:04] LABS: PTT PATIENT 29.5 SECONDS (21.0-31.0)
[2017-08-11 16:23] LABS: ALBUMIN 2.6 gm/dl (3.4-5.0); ALT/SGPT 24 U/L (12-78); AST/SGOT 14 U/L (15-37); BLOOD UREA NITROGEN 28 mg/dl (7-18); CALCIUM 8.2 mg/dl (8.5-10.1); CARBON DIOXIDE 31 mmol/L (21-32); CREATININE 2.95 mg/dl (0.60-1.40); GLUCOSE 167 mg/dl (70-99); LIPASE 317 U/L (73-393); POTASSIUM 3.6 mmol/L (3.5-5.1); SODIUM 132 mmol/L (136-145)
[2017-08-11 16:28] LABS: ALKALINE PHOSPHATASE 71 U/L (45-117); TOTAL PROTEIN 6.8 gm/dl (6.4-8.2)
[2017-08-11] MEDS ORDERED: ACETAMINOPHEN 325 MG TAB PO PRN (17:45)
[2017-08-11] MEDS ORDERED: ONDANSETRON INJ 2 MG/ML 2 ML VIAL IV PRN (17:45)
[2017-08-11] MEDS ORDERED: SODIENE PR (18:11)
[2017-08-11 19:00] VITALS: BP 131/78; PULSE 101; TEMP 36.8; O2SAT 98
[2017-08-11 19:35] VITALS: BP 131/78; PULSE 101; TEMP 36.8; O2SAT 98; Ht 185.4 cm; Wt 120.0 kg
--- NOTE | 2017-08-11 19:38 | History and Physical ---
History & Physical Date & Time of Service: Aug 11, 2017 ~ 17:15 Chief Complaint: Volume Overload Primary Care Physician: Kam Dickey D.O. History of Present Illness 87 year old male who was sent to the ED from dialysis for volume overload and hypotension. Patient was recently admitted to [facility] 07/16 - 08/03 for acute on chronic renal failure requiring initiation of dialysis, acute on chronic systolic CHF, and atrial fibrillation. During that admission, patient was started on amiodarone, Eliquis, and midodrine. Metoprolol dose was decreased. Digoxin and isosorbide were discontinued. Patient reports he has been feeling well since being discharged. While at dialysis today, they were attempting to remove fluid however patient was becoming hypotensive. Per Dr. Fraser, patient is currently 5kg over. Patient denies chest pain, shortness of breath, and palpitations. No lightheadedness, dizziness, diaphoresis, or syncopal events. He denies abdominal pain, nausea, vomiting, and diarrhea. No fevers or chills. He denies urinary symptoms. In the ED, patient's work up is unremarkable and is hemodynamically stable. Past Medical/Surgical History Medical Problems: (1) Atrial fibrillation Status: Chronic (2) CAD (coronary artery disease) Permanent Comment: 1995 - inferior wall [place] 1999 - RCA intervention 2006 - left cx intervention 07/2010 - high grade mid and RCA stenosis inside prior stenting s/p intervention 2010 - stent occlusion due to ASA and Plavix being held for procedure; RCA was unable to be reopened, s/p stent to left cx Status: Chronic (3) Chronic hypoxemic respiratory failure Status: Chronic (4) CKD (chronic kidney disease), stage IV Status: Chronic (5) COPD (chronic obstructive pulmonary disease) Status: Chronic (6) DM2 (diabetes mellitus, type 2) Status: Chronic (7) ESRD on dialysis Status: Chronic (8) HLD (hyperlipidemia) Status: Chronic (9) HTN (hypertension) Status: Chronic (10) Pulmonary nodules Permanent Comment: multiple calcified and noncalcified pulmonary nodules noted on CT chest 11/14/11 Status: Chronic (11) Systolic and diastolic CHF, chronic Permanent Comment: echo 2011 - EF 35-40%, grade II diastolic dysfunction Status: Chronic Surgical Problems: (1) H/O hernia repair Status: Chronic (2) s/p laser vaporization of prostate 11/01/11 Status: Chronic (3) Transurethral prostatectomy Status: Chronic Family History non contributory due to patient's advanced age Social History Smoking Status: Never Smoker Alcohol Use: none Immunizations History of Influenza Vaccine: Yes Influenza Vaccine Date: Jun 19, 2017 History of Tetanus Vaccine?: Yes Tetanus Immunization Date: Sep 19, 2013 History of Pneumococcal: Yes Pneumococcal Date: Oct 20, 2014 Multi-Drug Resistant Organisms History of MDRO: No Allergies Coded Allergies: Iodine (Verified Allergy, Mild, HIVES, 07/16/17) Heparin (Verified Allergy, Unknown, UNKNOWN, 08/11/17) OK TO GIVE DWELL Sulfa Antibiotics (Verified Allergy, Unknown, ENTERED SULFA- UNKNOWN, 07/16/17) Home Medications Scheduled Amiodarone HCl (Amiodarone HCl), 200 MG PO BIDM Apixaban (Eliquis), 2.5 MG PO BID Aspirin (Aspirin Ec), 81 MG PO QAM Calcium Acetate (Phoslo 667 Mg), 667 MG PO TIDM Docusate Sodium (Docusate Sodium), 100 MG PO BID Finasteride (Proscar), 5 MG PO HS Fluticasone Prop/Salmeterol (Advair Diskus 250/50 60 Dose), 1 PUFF INH BID Furosemide (Furosemide), 80 MG PO BID Gabapentin (Neurontin), 300 MG PO HS Insulin Aspart (Novolog Flexpen), SQ ACHS Insulin Glargine (Lantus Solostar), 16 UNITS SC QPM Metoprolol Succinate (Metoprolol Succinate ER), 100 MG PO BID Midodrine (Midodrine HCl), 2.5 MG PO TID@08,12,17 Polyethylene (Miralax), 17 GM PO DAILY Simvastatin (Simvastatin), 40 MG PO QPM Scheduled PRN Aluminum/Magnesium/Simeth (Maalox Max Susp), 15 ML PO Q6 PRN for Indigestion Bisacodyl (Bisac-Evac), 1 RE for Constipation Nitroglycerin (Nitrostat), 0.4 MG UT UD PRN for Chest Pain Sodium Phosphate/Biphosphate (Fleet Enema), 1 EA AR DAILY PRN for Constipation Review of Systems ROS per HPI, all other systems reviewed and negative Physical Exam Vital Signs Date Time Temp Pulse Resp B/P (MAP) Pulse Ox O2 Delivery O2 Flow Rate FiO2 08/11/17 17:17 78 20 105/62 93 Nasal Cannula 4.0 08/11/17 16:02 82 08/11/17 15:12 74 105/64 94 Nasal Cannula 4.0 08/11/17 15:12 Nasal Cannula 4.0 08/11/17 15:04 Nasal Cannula 4.0 08/11/17 15:04 36.7 79 20 99/60 94 Nasal Cannula 4.0 General Appearance: WD/WN, no apparent distress Head: normocephalic, atraumatic Eyes: normal inspection, EOMI, sclerae normal ENT: hearing grossly normal, + pertinent finding (mucous membranes moist) Neck: supple, no JVD, trachea midline Respiratory/Chest: no respiratory distress, + crackles (fine, BL bases) Cardiovascular: normal peripheral pulses, + irregularly irregular (rate controlled), + pertinent finding (trace edema BLLE) Abdomen/GI: normal bowel sounds, non tender, soft, no organomegaly, + distended Extremities/Musculoskelatal: normal inspection, no calf tenderness, normal capillary refill Neurologic/Psych: no motor/sensory deficits, alert, normal mood/affect, oriented x 3 Skin: normal color, warm/dry Diagnostics Laboratory Results Results Past 24 Hours Test 08/11/17 15:40 Range/Units White Blood Count 7.29 4.8-10.8 K/uL Red Blood Count 2.94 4.7-6.1 M/uL Hemoglobin 8.5 14.0-18.0 g/dL Hematocrit 27.6 42-52 % Mean Corpuscular Volume 93.9 80-100 fL Mean Corpuscular Hemoglobin 28.9 25-34 pg Mean Corpuscular Hemoglobin Concent 30.8 32-36 g/dl Platelet Count 138 130-400 K/uL Mean Platelet Volume 10.2 7.4-10.4 fL Neutrophils (%) (Auto) 77.6 % Lymphocytes (%) (Auto) 6.7 % Monocytes (%) (Auto) 10.2 % Eosinophils (%) (Auto) 2.1 % Basophils (%) (Auto) 0.5 % Neutrophils # (Auto) 5.66 1.4-6.5 K/uL Lymphocytes # (Auto) 0.49 1.2-3.4 K/uL Monocytes # (Auto) 0.74 0.11-0.59 K/uL Eosinophils # (Auto) 0.15 0-0.5 K/uL Basophils # (Auto) 0.04 0-0.2 K/uL RDW Standard Deviation 50.5 36.4-46.3 fL RDW Coefficient of Variation 14.9 11.5-14.5 % Immature Granulocyte % (Auto) 2.9 % Immature Granulocyte # (Auto) 0.21 0.00-0.02 K/uL Red Blood Cell Morphology Unremarkable Prothrombin Time 10.6 9.0-12.0 SECONDS Prothromb Time International Ratio 1.0 0.9-1.1 Activated Partial Thromboplast Time 29.5 21.0-31.0 SECONDS Partial Thromboplastin Ratio 1.1 Sodium Level 132 136-145 mmol/L Potassium Level 3.6 3.5-5.1 mmol/L Chloride Level 98 98-107 mmol/L Carbon Dioxide Level 31 21-32 mmol/L Anion Gap 3.0 3-11 mmol/L Blood Urea Nitrogen 28 7-18 mg/dl Creatinine 2.95 0.60-1.40 mg/dl Est Creatinine Clear Calc Drug Dose 25.6 ml/min Estimated GFR () 21.4 Estimated GFR (Non- 18.5 BUN/Creatinine Ratio 9.3 10-20 Random Glucose 167 70-99 mg/dl Calcium Level 8.2 8.5-10.1 mg/dl Total Bilirubin 0.3 0.2-1 mg/dl Direct Bilirubin < 0.1 0-0.2 mg/dl Aspartate Amino Transf (AST/SGOT) 14 15-37 U/L Alanine Aminotransferase (ALT/SGPT) 24 12-78 U/L Alkaline Phosphatase 71 45-117 U/L Troponin I < 0.015 0-0.045 ng/ml Total Protein 6.8 6.4-8.2 gm/dl Albumin 2.6 3.4-5.0 gm/dl Lipase 317 73-393 U/L Diagnostic Radiology CXR IMPRESSION: Chronic change. Moderate stable cardiomegaly. Unchanged bilateral parenchymal reticular nodular prominence. Impression Assessment and Plan VOLUME OVERLOAD IN THE SETTING OF ESRD - admit to med/surg - while at dialysis today, they were attempting to remove fluid however patient was becoming hypotensive; patient asymptomatic - per [facility], patient is 5kg over - will attempt HD with albumin to help with BP support - continue midodrine, consider up titration if needed ATRIAL FIBRILLATION - rhythm controlled on amdioadone, will continue - rate controlled on metoprolol, will continue - anticoagulated on Eliquis, will continue DM - hgb a1c 6.9 07/2017 - continue Lantus + SSI CHRONIC SYSTOLIC CHF - continue furosemide - also fluid managed with dialysis CAD - stable, no reports of chest pain - continue ASA, beta kelly, and statin CHRONIC HYPOXIC RESPIRATORY FAILURE - saturating well on chronic 3L BPH - continue finasteride DVT PROPHYLAXIS - on Eliquis CODE STATUS - Patient is a full code as per my discussion with him. DISPO - In my clinical judgment this beneficiary meets acute admission criteria, established by [facility], that includes being hospitalized through two midnights. ADDENDUM: Patient is sent from Dr. Fraser due to hypotension episode from dialysis He is a new HD patient - was discharged recently (last week) to [facility]. Was started on amiodarone, metoprolol and Eliquis at that time for atrial flutter Plan: dialysis on Monday and Monday with albumin should increased midodrine to 5mg TID if okay with nephrology monitor HRs continue amio, Eliquis, metoprolol VTE Prophylaxis VTE Risk Assessment Done? Y/N: Yes Risk Level: Moderate
[2017-08-11 21:38] VITALS: BP 94/62; PULSE 73
[2017-08-11] MEDS: FLUTICASONE/SALMETEROL 250/50 (ADVAIR) 14 PUFF/1 INHALER INH SCH (21:39)
[2017-08-11] MEDS: METOPROLOL SUCC 50MG EXT REL TAB PO SCH (21:39)
[2017-08-11] MEDS: SIMVASTATIN 40 MG TAB PO SCH (21:40)
[2017-08-11] MEDS: DOCUSATE SODIUM 100 MG CAP PO SCH (21:41)
[2017-08-11] MEDS: APIXABAN 2.5 MG TAB PO SCH (21:42)
[2017-08-11] MEDS: FINASTERIDE 5 MG TAB PO SCH (21:42)
[2017-08-11] MEDS: GABAPENTIN 300 MG CAP PO SCH (21:42)
[2017-08-11] MEDS: INSULIN GLARGINE SOLOSTAR 100 UNITS/ML 3 ML PEN SC SCH (21:46)
[2017-08-11 22:55] VITALS: BP 82/38; PULSE 88; TEMP 36.8; O2SAT 91
[2017-08-11 23:25] VITALS: BP 96/57
[2017-08-12] VITALS (19 sets, daily range): BP systolic 86–150; BP diastolic 47–73; PULSE 65–109; TEMP 36.5–36.9; O2SAT 90–92
[2017-08-12 08:00] LABS: HEMOGLOBIN 8.9 g/dL (14.0-18.0); MEAN CELL VOLUME 95.7 fL (80-100); MEAN CORPUSCULAR HEMOGLOBIN 29.4 pg (25-34); MEAN CORPUSCULAR HGB CONC 30.7 g/dl (32-36); MEAN PLATELET VOLUME 10.5 fL (7.4-10.4); NUCLEATED RED BLOOD CELL ABS 0.04 K/uL (0-0); PLATELET COUNT 152 K/uL (130-400); RED CELL DISTRIBUTION WIDTH CV 15.4 % (11.5-14.5); RED CELL DISTRIBUTION WIDTH SD 52.9 fL (36.4-46.3); WHITE BLOOD COUNT 7.82 K/uL (4.8-10.8)
[2017-08-12] MEDS: MIDODRINE 2.5 MG TAB PO SCH ×3 (08:00→19:00)
[2017-08-12] MEDS: CALCIUM ACETATE 667MG GELCAP PO SCH ×3 (08:00→18:59)
[2017-08-12] MEDS: AMIODARONE 200 MG TAB PO SCH ×2 (08:00→18:58)
[2017-08-12 08:26] LABS: CALCIUM 8.4 mg/dl (8.5-10.1); CREATININE 3.44 mg/dl (0.60-1.40); POTASSIUM 4.1 mmol/L (3.5-5.1)
[2017-08-12] MEDS: FLUTICASONE/SALMETEROL 250/50 (ADVAIR) 14 PUFF/1 INHALER INH SCH ×2 (09:00→22:01)
[2017-08-12] MEDS: ASPIRIN 81 MG ECTAB PO SCH (09:00)
[2017-08-12] MEDS: POLYETHYLENE (MIRALAX) 17 GM PACK PO SCH (09:00)
[2017-08-12] MEDS: FUROSEMIDE 40 MG TAB PO SCH ×2 (09:00→19:02)
[2017-08-12] MEDS: DOCUSATE SODIUM 100 MG CAP PO SCH ×2 (09:00→21:53)
[2017-08-12] MEDS: METOPROLOL SUCC 50MG EXT REL TAB PO SCH ×2 (09:00→21:00)
[2017-08-12] MEDS: APIXABAN 2.5 MG TAB PO SCH ×2 (09:00→21:53)
--- NOTE | 2017-08-12 09:37 | NEPHROLOGY CONSULTATION ---
DATE OF CONSULTATION: 08/12/2017 ATTENDING OF RECORD: Dr. Mendez. REASON FOR CONSULTATION: ESRD with volume overload. HISTORY OF PRESENT ILLNESS: This is an 87-year-old male who has been on dialysis at the outpatient unit with very low blood pressures, making it difficult to remove fluid. Based on his dry weight from when we started dialysis at the outpatient unit to now, he has gained 5 kilos and we were concerned about developing flash pulmonary edema and/or volume overload. So, it was decided to bring him in for more aggressive dialysis with the help of albumin. The patient was recently admitted for a prolonged hospitalization from July 16 to August 03. The patient was on amiodarone, Eliquis, and midodrine. The patient has been feeling relatively well and has limited insight into his significant comorbidities. PAST MEDICAL HISTORY: End-stage renal disease, COPD, diabetes, coronary artery disease, AFib/flutter, and hypertension. PAST SURGICAL HISTORY: Tunneled dialysis catheter, TURP, and hernia repairs. FAMILY HISTORY: No renal disease in family. SOCIAL HISTORY: No smoking, no alcohol, and no drugs. HOME MEDICATIONS: Significant for midodrine 2.5 mg p.o. t.i.d., Lasix 80 mg p.o. b.i.d., PhosLo 1 p.o. t.i.d. with meals, Eliquis 2.5 mg p.o. b.i.d., amiodarone 200 mg p.o. b.i.d., and metoprolol 100 mg p.o. b.i.d. CURRENT MEDICATIONS: Aspirin 81 mg a day, Lasix 80 mg p.o. b.i.d., MiraLax 17 grams daily, amiodarone 200 mg p.o. b.i.d., PhosLo 667 mg p.o. t.i.d. with meals, midodrine 2.5 mg p.o. t.i.d., Eliquis 2.5 mg p.o. b.i.d., Colace 100 mg p.o. b.i.d., Proscar 5 mg at night, Advair inhaler twice a day, Neurontin 300 mg at night, Lantus 16 units at night, and Toprol-XL 100 mg p.o. b.i.d. REVIEW OF SYSTEMS: Positive ambulatory dysfunction. Positive shortness of breath with exertion. Denies lightheadedness. Denies blurry vision. Denies dysphagia. Denies palpitations. No nausea or vomiting. No diarrhea or constipation. All other review of systems otherwise negative. PHYSICAL EXAMINATION: VITAL SIGNS: Temperature 36.5, pulse in the 80s, respiratory rate 18, blood pressure 108/62 and satting 92% on 3.5 liters nasal cannula. GENERAL: Awake, alert, and oriented x3. EYES: No scleral icterus. ENT: Moist mucous membranes. NECK: Supple. PULMONARY: Decreased breath sounds at the bases. CARDIAC: Rate controlled. ABDOMEN: Bowel sounds positive. Soft. Positive distention. EXTREMITIES: Mild edema. NEUROLOGICALLY: Nonfocal. DERMATOLOGIC: No rash or ulcers noted. LABORATORY DATA: White count 7.8, H&H 8.9 and 29, and platelet count is 152. Sodium level is 136, potassium 4.1, chloride is 99, bicarbonate is 31, BUN is 36, creatinine is 3.4, glucose is 157, and calcium is 8.4. UA shows 3+ blood and greater than 30 RBCs. INR is 1. Chest x-ray shows chronic changes with stable cardiomegaly. ASSESSMENT AND PLAN: 1. End-stage renal disease. 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 The patient's lungs have decreased breath sounds at the bases. Although, chest x-ray is not that impressive. The patient is requiring oxygen. Based on the dry weight, he has gained 5 kilos since admission to the outpatient dialysis unit and with his low blood pressures on dialysis, having a difficult time removing fluid, taken off about 1 to 1.5 liters per dialysis treatment. The patient slowly continues to gain weight. I was concerned about flash pulmonary edema and decided to bring the patient in for daily dialysis with albumin and plan is today and tomorrow with albumin and then reevaluate the patient's volume status and symptoms to see if these are stable for discharge. 2. Anemia of renal failure. We will redose Procrit to try to keep a goal between 10-11. 3. Renal osteodystrophy. We will continue the patient's phosphate binders and check phosphorus levels intermittently. 4. Hypotension. The patient is on low dose midodrine. One consideration is to increase the dose of the midodrine. Although, I would like to see how the patient tolerates fluid removal on dialysis with the use of albumin and then consider increasing the midodrine as an outpatient if necessary. I appreciate the consultation. QASIM
[2017-08-12] MEDS ORDERED: EPOETIN ALFA 10,000 UNITS/ML VIAL IV. SCH (11:00)
[2017-08-12] MEDS: ALBUMIN HUMAN 25% 12.5 GM/50 ML VIAL IV SCH ×2 (13:52→14:55)
--- NOTE | 2017-08-12 19:37 | Progress Note ---
Medicine Progress Note Date & Time of Visit: Aug 12, 2017 at 19:01. Subjective CC: Follow-up visit for CKD / fluid overload. HPI: Underwent dialysis today. No fever. No chest pain. No cough or dyspnea. No nausea or vomiting. No diarrhea. ROS: as noted above in HPI [above documentation late addition 08/14/17 03:50 to complete note FERNANDO] . Objective Last 8 Hrs Date Time Temp Pulse Resp B/P (MAP) Pulse Ox O2 Delivery O2 Flow Rate FiO2 08/12/17 17:35 92 Nasal Cannula 3.5 08/12/17 17:20 36.7 104 102/63 (76) 08/12/17 16:30 102 106/47 08/12/17 16:16 103 104/61 08/12/17 16:00 101 102/65 08/12/17 15:45 97 100/64 08/12/17 15:30 100 110/60 08/12/17 15:15 100 118/73 08/12/17 15:00 65 86/73 08/12/17 14:45 102 105/65 08/12/17 14:30 100 113/62 08/12/17 14:15 101 110/57 08/12/17 14:00 79 110/63 08/12/17 13:50 90 111/58 08/12/17 13:42 36.7 90 87/52 (64) Physical Exam: General- lying in bed, no acute distress Lungs- mild wheezing Cardiovascular- regular, no gallop appreciated, + JVD, 1 + pretibial edema Abdomen- obese, soft, nontender Extremities- no calf tenderness Neuro- alert Skin- warm and dry . Laboratory Results: Last 24 Hours Test 08/11/17 20:15 08/11/17 22:30 08/12/17 07:42 Bedside Glucose 197 mg/dl Urine Color YELLOW Urine Appearance CLEAR Urine pH 5.0 Urine Specific [place] 1.014 Urine Protein TRACE Urine Glucose (UA) NEG Urine Ketones NEG Urine Occult Blood 3+ Urine Nitrite NEG Urine Bilirubin NEG Urine Urobilinogen NEG Urine Leukocyte Esterase NEG Urine WBC (Auto) 1-5 /hpf Urine RBC (Auto) >30 /hpf Urine Hyaline Casts (Auto) 1-5 /lpf Urine Epithelial Cells (Auto) 5-10 /lpf Urine Bacteria (Auto) NEG White Blood Count 7.82 K/uL Red Blood Count 3.03 M/uL Hemoglobin 8.9 g/dL Hematocrit 29.0 % Mean Corpuscular Volume 95.7 fL Mean Corpuscular Hemoglobin 29.4 pg Mean Corpuscular Hemoglobin Concent 30.7 g/dl RDW Standard Deviation 52.9 fL RDW Coefficient of Variation 15.4 % Platelet Count 152 K/uL Mean Platelet Volume 10.5 fL Nucleated RBC Absolute Count (auto) 0.04 K/uL Nucleated Red Blood Cells % 0.5 % Sodium Level 136 mmol/L Potassium Level 4.1 mmol/L Chloride Level 99 mmol/L Carbon Dioxide Level 31 mmol/L Anion Gap 6.0 mmol/L Blood Urea Nitrogen 36 mg/dl Creatinine 3.44 mg/dl Est Creatinine Clear Calc Drug Dose 21.8 ml/min Estimated GFR () 17.8 Estimated GFR (Non- 15.3 BUN/Creatinine Ratio 10.4 Random Glucose 157 mg/dl Calcium Level 8.4 mg/dl Date/Time Source Procedure Growth Status 08/11/17 23:10 Nasal MRSA DNA Surveillance Screen - Final Specimen Negative for MRSA by DNA Probe Complete Assessment & Plan CKD V CKD stage V on hemodialysis. Admitted with fluid overload. Management per Nephrology. CORONARY ARTERY DISEASE No chest pain. Cardiac markers negative. Continue aspirin, metoprolol, statin. CHF (mixed LV systolic + diastolic and right heart failure) Chronic left ventricular systolic heart failure with EF of 35-40 %, left ventricular diastolic heart failure, probable right-sided heart failure. Fluid management with hemodialysis. No NICO or ARB due to CKD. PAROXYSMAL ATRIAL FIB Continue amiodarone, metoprolol, apixaban. HYPERTENSION Continue metoprolol succinate Follow and titrate Rx. CHRONIC HYPOXIC, HYPERCAPNIC RESPIRATORY FAILURE Chronic hypoxic respiratory failure on home O2 due to COPD. Continue supplemental O2. COPD Continue O2 and Advair. 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 Unable to find any documented sleep studies. Sleep study should be performed when possible. Check nocturnal oximetry prior to discharge. Probably needs CPAP or BiPAP at home, but may be unwilling. PULMONARY NODULES Noted on previous CT imaging as far back as 2011. PET scan 04/06/16: bilat pulmonary granulomata bilat noncalcified pulmonary nodules, no appreciable FDG activity CT 05/27/17- stable findings compared to 2012. DIABETES MELLITUS TYPE 2 Fairly well-controlled. Hemoglobin A1c 7.2 07/18/17. FBS = 157. Continue Lantus/NovoLog per protocol. BPH Continue finasteride. VTE PROPHYLAXIS Continue apixaban. Ambulate as able. DISPOSITION To be determined. Family Medicine follow-up with and Dr. Kam Dickey. . Current Inpatient Medications: Current Inpatient Medications Medications (Trade) Dose Ordered Sig/Ronak Route Start Time Stop Time Status Last Admin Dose Admin Acetaminophen (Tylenol Tab) 650 mg Q4H PRN PO 08/11/17 17:45 09/10/17 17:44 Ondansetron HCl (Zofran Inj) 4 mg Q6H PRN IV 08/11/17 17:45 09/10/17 17:44 Amiodarone HCl (Cordarone Tab) 200 mg BIDM PO 08/12/17 08:00 09/11/17 07:59 Apixaban (Eliquis Tab) 2.5 mg BID PO 08/11/17 21:00 09/10/17 20:59 08/11/17 21:42 2.5 MG Aspirin (Ecotrin Tab) 81 mg QAM PO 08/12/17 09:00 09/11/17 08:59 Calcium Acetate (Phoslo Cap) 667 mg TIDM PO 08/12/17 08:00 09/11/17 07:59 Docusate Sodium (coLACE CAP) 100 mg BID PO 08/11/17 21:00 09/10/17 20:59 08/11/17 21:41 100 MG Finasteride (Proscar Tab) 5 mg HS PO 08/11/17 21:00 09/10/17 20:59 08/11/17 21:42 5 MG Salmeterol Xinafoate/ Fluticasone (Advair Diskus 250/50 Inh) 1 puff BID INH 08/11/17 21:00 09/10/17 20:59 08/12/17 09:00 1 PUFF Furosemide (Lasix Tab) 80 mg BID17 PO 08/12/17 09:00 09/11/17 08:59 Gabapentin (Neurontin Cap) 300 mg HS PO 08/11/17 21:00 09/10/17 20:59 08/11/17 21:42 300 MG Insulin Glargine (Lantus Solostar Pen) 16 units QPM SC 08/11/17 21:00 09/10/17 20:59 08/11/17 21:46 16 UNITS Metoprolol Succinate (Toprol Xl Tab) 100 mg BID PO 08/11/17 21:00 09/10/17 20:59 Midodrine (Proamatine Tab) 2.5 mg TID@08,12,17 PO 08/12/17 08:00 09/11/17 07:59 Polyethylene (Miralax Powder Packet) 17 gm DAILY PO 08/12/17 09:00 09/11/17 08:59 Simvastatin (Zocor Tab) 40 mg QPM PO 08/11/17 21:00 09/10/17 20:59 08/11/17 21:40 40 MG
[2017-08-12] MEDS: GABAPENTIN 300 MG CAP PO SCH (21:52)
[2017-08-12] MEDS: FINASTERIDE 5 MG TAB PO SCH (21:54)
[2017-08-12] MEDS: SIMVASTATIN 40 MG TAB PO SCH (21:55)
[2017-08-12] MEDS: INSULIN GLARGINE SOLOSTAR 100 UNITS/ML 3 ML PEN SC SCH (21:58)
[2017-08-13] VITALS (19 sets, daily range): BP systolic 102–134; BP diastolic 46–77; PULSE 67–107; TEMP 36.6–37; O2SAT 86–95
[2017-08-13 06:39] LABS: CALCIUM 8.1 mg/dl (8.5-10.1); CREATININE 2.79 mg/dl (0.60-1.40)
[2017-08-13] MEDS: MIDODRINE 2.5 MG TAB PO SCH ×4 (08:00→17:19)
[2017-08-13] MEDS: CALCIUM ACETATE 667MG GELCAP PO SCH ×3 (08:47→17:19)
[2017-08-13] MEDS: ALBUMIN HUMAN 25% 12.5 GM/50 ML VIAL IV SCH ×2 (10:27→11:01)
--- NOTE | 2017-08-13 11:07 | Dialysis Progress Note ---
Nephrology Dialysis Note Date of Service: Aug 13, 2017. Subjective 87 yo male with esrd who was 5 kilos over his dry weight and had dialysis [facility] as outpt and again yesterday and now this morning on dialysis. bp was good yesterday on dialysis with the help of albumin. getting albumin on dialysis again today and bp systolics in the low 100s. Objective Date Time Temp Pulse Resp B/P (MAP) Pulse Ox O2 Delivery O2 Flow Rate FiO2 08/13/17 10:15 104 107/57 08/13/17 10:01 102 126/55 08/13/17 09:52 37.0 104 106/46 (66) 08/13/17 08:00 92 Nasal Cannula 4.0 08/13/17 00:15 Nasal Cannula 4.0 08/12/17 23:11 36.9 109 20 150/69 (96) 90 Nasal Cannula 4.0 08/12/17 21:50 107 20 94/47 (63) 90 Nasal Cannula 4.0 08/12/17 19:07 105 21 130/63 (85) 90 Nasal Cannula 4.0 08/12/17 17:35 92 Nasal Cannula 3.5 08/12/17 17:20 36.7 104 102/63 (76) 08/12/17 16:30 102 106/47 08/12/17 16:16 103 104/61 08/12/17 16:00 101 102/65 08/12/17 15:45 97 100/64 08/12/17 15:30 100 110/60 08/12/17 15:15 100 118/73 08/12/17 15:00 65 86/73 08/12/17 14:45 102 105/65 08/12/17 14:30 100 113/62 08/12/17 14:15 101 110/57 08/12/17 14:00 79 110/63 08/12/17 13:50 90 111/58 08/12/17 13:42 36.7 90 87/52 (64) Physical Exam: General-aaox3 Eyes-no scleral icterus ENT-mmm Neck-supple Lungs-cta Heart-tachy Abdomen-bs+ s/nt/nd Extremities-+1 edema Neuro-nonfocal Current Inpatient Medications Medications (Trade) Dose Ordered Sig/Ronak Route Start Time Stop Time Status Last Admin Dose Admin Acetaminophen (Tylenol Tab) 650 mg Q4H PRN PO 08/11/17 17:45 09/10/17 17:44 Ondansetron HCl (Zofran Inj) 4 mg Q6H PRN IV 08/11/17 17:45 09/10/17 17:44 Amiodarone HCl (Cordarone Tab) 200 mg BIDM PO 08/12/17 08:00 09/11/17 07:59 08/12/17 18:58 200 MG Apixaban (Eliquis Tab) 2.5 mg BID PO 08/11/17 21:00 09/10/17 20:59 08/12/17 21:53 2.5 MG Aspirin (Ecotrin Tab) 81 mg QAM PO 08/12/17 09:00 09/11/17 08:59 Calcium Acetate (Phoslo Cap) 667 mg TIDM PO 08/12/17 08:00 09/11/17 07:59 08/13/17 08:47 667 MG Docusate Sodium (coLACE CAP) 100 mg BID PO 08/11/17 21:00 09/10/17 20:59 08/12/17 21:53 100 MG Finasteride (Proscar Tab) 5 mg HS PO 08/11/17 21:00 09/10/17 20:59 08/12/17 21:54 5 MG Salmeterol Xinafoate/ Fluticasone (Advair Diskus 250/50 Inh) 1 puff BID INH 08/11/17 21:00 09/10/17 20:59 08/12/17 22:01 1 PUFF Furosemide (Lasix Tab) 80 mg BID17 PO 08/12/17 09:00 09/11/17 08:59 08/12/17 19:02 80 MG Gabapentin (Neurontin Cap) 300 mg HS PO 08/11/17 21:00 09/10/17 20:59 08/12/17 21:52 300 MG Insulin Glargine (Lantus Solostar Pen) 16 units QPM SC 08/11/17 21:00 09/10/17 20:59 08/12/17 21:58 16 UNITS Metoprolol Succinate (Toprol Xl Tab) 100 mg BID PO 08/11/17 21:00 09/10/17 20:59 Midodrine (Proamatine Tab) 2.5 mg TID@08,12,17 PO 08/12/17 08:00 09/11/17 07:59 08/12/17 19:00 2.5 MG Polyethylene (Miralax Powder Packet) 17 gm DAILY PO 08/12/17 09:00 09/11/17 08:59 Simvastatin (Zocor Tab) 40 mg QPM PO 08/11/17 21:00 09/10/17 20:59 08/12/17 21:55 40 MG Albumin Human (Albumin 25%) 12.5 gm 1000,1100 IV 08/13/17 10:00 08/13/17 15:00 08/13/17 10:27 12.5 GM Last 24 Hours Test 08/12/17 20:05 08/13/17 05:44 08/13/17 07:30 Bedside Glucose 138 mg/dl 156 mg/dl Sodium Level 136 mmol/L Potassium Level 4.0 mmol/L Chloride Level 102 mmol/L Carbon Dioxide Level 30 mmol/L Anion Gap 4.0 mmol/L Blood Urea Nitrogen 27 mg/dl Creatinine 2.79 mg/dl Est Creatinine Clear Calc Drug Dose 27.5 ml/min Estimated GFR () 22.9 Estimated GFR (Non- 19.8 BUN/Creatinine Ratio 9.6 Random Glucose 153 mg/dl Calcium Level 8.1 mg/dl Assessment & Plan ESRD-seen on dialysis. volume status better and tolerating fluid removal with the help of albumin. ok from renal perspective to go back to group home when medically cleared by primary hospitalist. Plan on dialysis again tomorrow with albumin.
[2017-08-13] MEDS: ASPIRIN 81 MG ECTAB PO SCH (13:31)
[2017-08-13] MEDS: AMIODARONE 200 MG TAB PO SCH ×2 (13:32→17:20)
[2017-08-13] MEDS: METOPROLOL SUCC 50MG EXT REL TAB PO SCH ×2 (13:32→22:06)
[2017-08-13] MEDS: FUROSEMIDE 40 MG TAB PO SCH ×2 (13:32→17:19)
[2017-08-13] MEDS: APIXABAN 2.5 MG TAB PO SCH ×2 (13:33→22:01)
[2017-08-13] MEDS: DOCUSATE SODIUM 100 MG CAP PO SCH ×2 (13:33→22:01)
[2017-08-13] MEDS: FLUTICASONE/SALMETEROL 250/50 (ADVAIR) 14 PUFF/1 INHALER INH SCH ×2 (13:33→22:00)
[2017-08-13] MEDS: POLYETHYLENE (MIRALAX) 17 GM PACK PO SCH (13:33)
[2017-08-13] MEDS: SIMVASTATIN 40 MG TAB PO SCH (22:00)
[2017-08-13] MEDS ORDERED: NURSING VERBAL MED ORDER ONE ×2 (22:00→22:45)
[2017-08-13] MEDS: FINASTERIDE 5 MG TAB PO SCH (22:01)
[2017-08-13] MEDS: GABAPENTIN 300 MG CAP PO SCH (22:01)
[2017-08-13] MEDS ORDERED: NITROGLYCERIN 0.4 MG SL PER TAB CHARGE SL STA (22:05)
[2017-08-13] MEDS: INSULIN GLARGINE SOLOSTAR 100 UNITS/ML 3 ML PEN SC SCH (22:09)
[2017-08-13 22:44] LABS: CKMB 1.4 ng/ml (0.5-3.6)
--- NOTE | 2017-08-13 23:29 | Progress Note ---
Medicine Progress Note Date & Time of Visit: Aug 13, 2017 at 16:40 . Subjective CC: Follow-up visit for CKD and other problems. HPI: Dialysis performed today without incident. No fever. No chest pain. Occasional nonproductive cough, no SOB> No N/V. ROS: as noted above in HPI . Objective Last 8 Hrs Date Time Temp Pulse Resp B/P (MAP) Pulse Ox O2 Delivery O2 Flow Rate FiO2 08/13/17 16:10 91 Nasal Cannula 4.0 08/13/17 16:07 86 Nasal Cannula 3.0 08/13/17 15:32 36.9 79 20 121/66 (84) 94 Nasal Cannula 4.0 08/13/17 13:41 36.7 104 102/63 (76) 08/13/17 13:35 36.6 107 20 120/72 (88) 95 Nasal Cannula 4.0 08/13/17 12:30 69 123/50 08/13/17 12:15 69 126/57 08/13/17 12:00 67 123/60 08/13/17 11:45 104 118/64 08/13/17 11:30 102 112/55 Physical Exam: General- lying in bed, no acute distress Lungs- mild wheezing; no respiratory distress Cardiovascular- regular, no gallop appreciated, + JVD, 1 + pretibial edema Abdomen- obese, soft, nontender Extremities- no calf tenderness Neuro- alert Skin- warm and dry . Laboratory Results: Last 24 Hours Test 08/12/17 20:05 08/13/17 05:44 08/13/17 07:30 08/13/17 13:24 Bedside Glucose 138 mg/dl 156 mg/dl 144 mg/dl Sodium Level 136 mmol/L Potassium Level 4.0 mmol/L Chloride Level 102 mmol/L Carbon Dioxide Level 30 mmol/L Anion Gap 4.0 mmol/L Blood Urea Nitrogen 27 mg/dl Creatinine 2.79 mg/dl Est Creatinine Clear Calc Drug Dose 27.5 ml/min Estimated GFR () 22.9 Estimated GFR (Non- 19.8 BUN/Creatinine Ratio 9.6 Random Glucose 153 mg/dl Calcium Level 8.1 mg/dl Test 08/13/17 16:36 Bedside Glucose 211 mg/dl Assessment & Plan CKD V CKD stage V on hemodialysis. Admitted with fluid overload. Management per Nephrology. CORONARY ARTERY DISEASE No chest pain. Cardiac markers negative. Continue aspirin, metoprolol, statin. CHF (mixed LV systolic + diastolic and right heart failure) Chronic left ventricular systolic heart failure with EF of 35-40 %, left ventricular diastolic heart failure, probable right-sided heart failure. Fluid management with hemodialysis. No NICO or ARB due to CKD. PAROXYSMAL ATRIAL FIB Continue amiodarone, metoprolol, apixaban. HYPERTENSION Continue metoprolol succinate Follow and titrate Rx. CHRONIC HYPOXIC, HYPERCAPNIC RESPIRATORY FAILURE Chronic hypoxic respiratory failure on home O2 due to COPD. Continue supplemental O2. COPD Continue O2 and Advair. PULMONARY NODULES Noted on previous CT imaging as far back as 2011. PET scan 04/06/16: bilat pulmonary granulomata bilat noncalcified pulmonary nodules, no appreciable FDG activity CT 05/27/17- stable findings compared to 2012. DIABETES MELLITUS TYPE 2 Fairly well-controlled. Hemoglobin A1c 7.2 07/18/17. FBS = 156. Continue Lantus/NovoLog per protocol. BPH Continue finasteride. VTE PROPHYLAXIS Continue apixaban. Ambulate as able. DISPOSITION To be determined. Family Medicine follow-up with and Dr. Kam Dickey. . Current Inpatient Medications: Current Inpatient Medications Medications (Trade) Dose Ordered Sig/Ronak Route Start Time Stop Time Status Last Admin Dose Admin Acetaminophen (Tylenol Tab) 650 mg Q4H PRN PO 08/11/17 17:45 09/10/17 17:44 Ondansetron HCl (Zofran Inj) 4 mg Q6H PRN IV 08/11/17 17:45 09/10/17 17:44 Amiodarone HCl (Cordarone Tab) 200 mg BIDM PO 08/12/17 08:00 09/11/17 07:59 08/13/17 17:20 200 MG Apixaban (Eliquis Tab) 2.5 mg BID PO 08/11/17 21:00 09/10/17 20:59 08/13/17 13:33 2.5 MG Aspirin (Ecotrin Tab) 81 mg QAM PO 08/12/17 09:00 09/11/17 08:59 08/13/17 13:31 81 MG Calcium Acetate (Phoslo Cap) 667 mg TIDM PO 08/12/17 08:00 09/11/17 07:59 08/13/17 17:19 667 MG Docusate Sodium (coLACE CAP) 100 mg BID PO 08/11/17 21:00 09/10/17 20:59 08/13/17 13:33 100 MG Finasteride (Proscar Tab) 5 mg HS PO 08/11/17 21:00 09/10/17 20:59 08/12/17 21:54 5 MG Salmeterol Xinafoate/ Fluticasone (Advair Diskus 250/50 Inh) 1 puff BID INH 08/11/17 21:00 09/10/17 20:59 08/13/17 13:33 1 PUFF Furosemide (Lasix Tab) 80 mg BID17 PO 08/12/17 09:00 09/11/17 08:59 08/13/17 17:19 80 MG Gabapentin (Neurontin Cap) 300 mg HS PO 08/11/17 21:00 09/10/17 20:59 08/12/17 21:52 300 MG Insulin Glargine (Lantus Solostar Pen) 16 units QPM SC 08/11/17 21:00 09/10/17 20:59 08/12/17 21:58 16 UNITS Metoprolol Succinate (Toprol Xl Tab) 100 mg BID PO 08/11/17 21:00 09/10/17 20:59 08/13/17 13:32 100 MG Midodrine (Proamatine Tab) 2.5 mg TID@08,12,17 PO 08/12/17 08:00 09/11/17 07:59 08/13/17 17:19 2.5 MG Polyethylene (Miralax Powder Packet) 17 gm DAILY PO 08/12/17 09:00 09/11/17 08:59 08/13/17 13:33 17 GM Simvastatin (Zocor Tab) 40 mg QPM PO 08/11/17 21:00 09/10/17 20:59 08/12/17 21:55 40 MG
[2017-08-14] VITALS (20 sets, daily range): BP systolic 107–130; BP diastolic 55–86; PULSE 71–107; TEMP 36.5–36.8; O2SAT 86–100
--- NOTE | 2017-08-14 06:33 | Nephrology Progress Note ---
Nephrology Progress Note Date of Service: Aug 14, 2017. Subjective 87 yo male with esrd who underwent dialysis and monday and monday successfully removing 2 liters each time. pt comfortable. says he is breathing well. no specific complaints today. Objective Date Time Temp Pulse Resp B/P (MAP) Pulse Ox O2 Delivery O2 Flow Rate FiO2 08/14/17 00:00 Nasal Cannula 4.0 08/13/17 23:05 36.9 94 20 134/77 (96) 92 Nasal Cannula 4.0 08/13/17 16:10 91 Nasal Cannula 4.0 08/13/17 16:07 86 Nasal Cannula 3.0 08/13/17 15:32 36.9 79 20 121/66 (84) 94 Nasal Cannula 4.0 08/13/17 13:41 36.7 104 102/63 (76) 08/13/17 13:35 36.6 107 20 120/72 (88) 95 Nasal Cannula 4.0 08/13/17 12:30 69 123/50 08/13/17 12:15 69 126/57 08/13/17 12:00 67 123/60 08/13/17 11:45 104 118/64 08/13/17 11:30 102 112/55 08/13/17 11:15 105 113/63 08/13/17 11:00 105 113/64 08/13/17 10:45 105 113/59 08/13/17 10:30 102 103/56 08/13/17 10:15 104 107/57 08/13/17 10:01 102 126/55 08/13/17 09:52 37.0 104 106/46 (66) 08/13/17 08:00 92 Nasal Cannula 4.0 Physical Exam: General-aaox3 Eyes-no scleral icterus ENT-mmm Neck-supple Lungs-clear Heart-regular Abdomen-bs+ s/nt/nd Extremities-mild edema Neuro-nonfocal Current Inpatient Medications Medications (Trade) Dose Ordered Sig/Ronak Route Start Time Stop Time Status Last Admin Dose Admin Acetaminophen (Tylenol Tab) 650 mg Q4H PRN PO 08/11/17 17:45 09/10/17 17:44 08/13/17 21:50 650 MG Ondansetron HCl (Zofran Inj) 4 mg Q6H PRN IV 08/11/17 17:45 09/10/17 17:44 Amiodarone HCl (Cordarone Tab) 200 mg BIDM PO 08/12/17 08:00 09/11/17 07:59 08/13/17 17:20 200 MG Apixaban (Eliquis Tab) 2.5 mg BID PO 08/11/17 21:00 09/10/17 20:59 08/13/17 22:01 2.5 MG Aspirin (Ecotrin Tab) 81 mg QAM PO 08/12/17 09:00 09/11/17 08:59 08/13/17 13:31 81 MG Calcium Acetate (Phoslo Cap) 667 mg TIDM PO 08/12/17 08:00 09/11/17 07:59 08/13/17 17:19 667 MG Docusate Sodium (coLACE CAP) 100 mg BID PO 08/11/17 21:00 09/10/17 20:59 08/13/17 22:01 100 MG Finasteride (Proscar Tab) 5 mg HS PO 08/11/17 21:00 09/10/17 20:59 08/13/17 22:01 5 MG Salmeterol Xinafoate/ Fluticasone (Advair Diskus 250/50 Inh) 1 puff BID INH 08/11/17 21:00 09/10/17 20:59 08/13/17 22:00 1 PUFF Furosemide (Lasix Tab) 80 mg BID17 PO 08/12/17 09:00 09/11/17 08:59 08/13/17 17:19 80 MG Gabapentin (Neurontin Cap) 300 mg HS PO 08/11/17 21:00 09/10/17 20:59 08/13/17 22:01 300 MG Insulin Glargine (Lantus Solostar Pen) 16 units QPM SC 08/11/17 21:00 09/10/17 20:59 08/13/17 22:09 16 UNITS Metoprolol Succinate (Toprol Xl Tab) 100 mg BID PO 08/11/17 21:00 09/10/17 20:59 08/13/17 22:06 100 MG Midodrine (Proamatine Tab) 2.5 mg TID@,,17 PO 08/12/17 08:00 09/11/17 07:59 08/13/17 17:19 2.5 MG Polyethylene (Miralax Powder Packet) 17 gm DAILY PO 08/12/17 09:00 09/11/17 08:59 08/13/17 13:33 17 GM Simvastatin (Zocor Tab) 40 mg QPM PO 08/11/17 21:00 09/10/17 20:59 08/13/17 22:00 40 MG Epoetin Alexis (Procrit Inj) 10,000 units ONE ONCE IV. 08/14/17 06:30 08/14/17 06:31 UNV Albumin Human (Albumin 25%) 25 gm ONE ONCE IV 08/14/17 06:30 08/14/17 06:31 UNV Last 24 Hours Test 08/13/17 07:30 08/13/17 13:24 08/13/17 16:36 08/13/17 20:03 Bedside Glucose 156 mg/dl 144 mg/dl 211 mg/dl 201 mg/dl Test 08/13/17 22:07 Total Creatine Kinase 19 U/L Creatine Kinase MB 1.4 ng/ml Creatine Kinase MB Ratio 7.4 Troponin I < 0.015 ng/ml Assessment & Plan ESRD-for dialysis again today with albumin given that he dialyzes m-w-f normally. no dialysis tomorrow. will go back to three days a week schedule. volume status much improved.
[2017-08-14] MEDS: MIDODRINE 2.5 MG TAB PO SCH ×3 (08:00→18:06)
[2017-08-14] MEDS ORDERED: EPOETIN ALFA 10,000 UNITS/ML VIAL IV. SCH (08:00)
[2017-08-14] MEDS: AMIODARONE 200 MG TAB PO SCH ×2 (08:00→18:06)
[2017-08-14] MEDS: CALCIUM ACETATE 667MG GELCAP PO SCH ×3 (08:32→18:06)
[2017-08-14] MEDS: DOCUSATE SODIUM 100 MG CAP PO SCH ×2 (09:00→20:42)
[2017-08-14] MEDS: ASPIRIN 81 MG ECTAB PO SCH (09:00)
[2017-08-14] MEDS: METOPROLOL SUCC 50MG EXT REL TAB PO SCH ×2 (09:00→20:43)
[2017-08-14] MEDS: POLYETHYLENE (MIRALAX) 17 GM PACK PO SCH (09:00)
[2017-08-14] MEDS: FLUTICASONE/SALMETEROL 250/50 (ADVAIR) 14 PUFF/1 INHALER INH SCH ×2 (09:00→20:42)
[2017-08-14] MEDS: APIXABAN 2.5 MG TAB PO SCH ×2 (09:00→20:42)
[2017-08-14] MEDS: FUROSEMIDE 40 MG TAB PO SCH ×2 (09:00→18:07)
--- NOTE | 2017-08-14 13:23 | Clinical Documentation Query ---
CLINICAL DOCUMENTATION QUERY Dr. DINH, In your clinical opinion is this patient being managed for: ( ) Acute on chronic combined systolic and diastolic CHF ( x ) Not Agree Favor chronic CHF. No pulmonary edema seen on CXR. ( ) Other explanation of clinical findings (Please Explain) ( ) Unable to determine (Please Define) ( ) Need to Discuss The medical record reflects the following clinical findings, treatment, and risk factors. Clinical Indicators: 87 yo male presenting with fluid overload. Documentation reflects pt is 5 kg over dry wt. Lungs with fine bilateral crackles and trace LE edema. Poorly tolerating HD treatment due to hypotension Treatment: dialysis treatment, IV albumin Risk Factors: DM, HTN, ESRD, CAD, Afib/A flutter Please clarify and document your clinical opinion in the progress notes and discharge summary. Terms such as "probable", "suspected", "likely", "questionable", "possible", or "still to be ruled out" are acceptable. IF IN AGREEMENT, YOU MUST DOCUMENT ABOVE DIAGNOSTIC STATEMENT IN DAILY PROGRESS NOTES AND DISCHARGE SUMMARY. This document is not part of the patient's record. Thank You, Gabriella Castillo, RN [phone]
[2017-08-14] MEDS: ALBUMIN HUMAN 25% 12.5 GM/50 ML VIAL IV SCH (15:00)
--- NOTE | 2017-08-14 20:36 | Progress Note ---
Medicine Progress Note Date & Time of Visit: Aug 14, 2017 at 19:50 . Subjective CC: Follow-up visit for CKD and other problems. HPI: Had an episode of chest pain last night. Nothing unusual for him; prefers taking Tylenol because of headaches attributed to NTG. No further chest pain. No SOB. Underwent hemodialysis today. ROS: General- no fever, no chills Resp- no cough; no shortness of breath Cardiac- as noted above in HPI GI- no nausea, no vomiting, no diarrhea - as noted above in HPI . Objective Last 8 Hrs Date Time Temp Pulse Resp B/P (MAP) Pulse Ox O2 Delivery O2 Flow Rate FiO2 08/14/17 18:11 36.7 100 20 121/73 (89) 96 Nasal Cannula 2.0 08/14/17 18:00 100 Nasal Cannula 2.0 08/14/17 17:09 36.5 107 123/74 (90) 08/14/17 17:00 78 117/63 08/14/17 16:45 79 127/56 08/14/17 16:30 82 117/60 08/14/17 16:15 78 118/55 08/14/17 16:00 75 122/55 08/14/17 15:45 98 111/60 08/14/17 15:30 107 130/72 08/14/17 15:15 107 118/68 08/14/17 15:00 71 120/64 08/14/17 14:45 107 109/61 08/14/17 14:30 106 110/59 08/14/17 14:15 104 112/58 08/14/17 14:10 36.6 104 107/59 (75) Physical Exam: General- lying in bed, no acute distress Lungs- mild wheezing; no respiratory distress Cardiovascular- regular, no gallop appreciated, + JVD, 1 + pretibial edema Abdomen- obese, soft, nontender Extremities- no calf tenderness Neuro- alert Skin- warm and dry . Laboratory Results: Last 24 Hours Test 08/13/17 22:07 08/14/17 07:53 08/14/17 10:56 08/14/17 16:49 Total Creatine Kinase 19 U/L Creatine Kinase MB 1.4 ng/ml Creatine Kinase MB Ratio 7.4 Troponin I < 0.015 ng/ml Bedside Glucose 196 mg/dl 213 mg/dl 121 mg/dl Test 08/14/17 20:12 Bedside Glucose 208 mg/dl Assessment & Plan CKD V CKD stage V on hemodialysis. Admitted with fluid overload. Management per Nephrology. CORONARY ARTERY DISEASE No chest pain. Cardiac markers negative. Continue aspirin, metoprolol, statin. CHF (mixed LV systolic + diastolic and right heart failure) Chronic left ventricular systolic heart failure with EF of 35-40 %, left ventricular diastolic heart failure, probable right-sided heart failure. Fluid management with hemodialysis. No NICO or ARB due to CKD. PAROXYSMAL ATRIAL FIB Continue amiodarone, metoprolol, apixaban. HYPERTENSION Continue metoprolol succinate Follow and titrate Rx. CHRONIC HYPOXIC, HYPERCAPNIC RESPIRATORY FAILURE Chronic hypoxic respiratory failure on home O2 due to COPD. Continue supplemental O2. COPD Continue O2 and Advair. PULMONARY NODULES Noted on previous CT imaging as far back as 2011. PET scan 04/06/16: bilat pulmonary granulomata bilat noncalcified pulmonary nodules, no appreciable FDG activity CT 05/27/17- stable findings compared to 2011. DIABETES MELLITUS TYPE 2 Fairly well-controlled. Hemoglobin A1c 7.2 07/18/17. FBS = 196. Continue Lantus/NovoLog per protocol. BPH Continue finasteride. VTE PROPHYLAXIS Continue apixaban. Ambulate as able. DISPOSITION Anticipated return to [facility] for skilled care. Family Medicine follow-up with and Dr. Kam Dickey. . Current Inpatient Medications: Current Inpatient Medications Medications (Trade) Dose Ordered Sig/Ronak Route Start Time Stop Time Status Last Admin Dose Admin Acetaminophen (Tylenol Tab) 650 mg Q4H PRN PO 08/11/17 17:45 09/10/17 17:44 08/13/17 21:50 650 MG Ondansetron HCl (Zofran Inj) 4 mg Q6H PRN IV 08/11/17 17:45 09/10/17 17:44 Amiodarone HCl (Cordarone Tab) 200 mg BIDM PO 08/12/17 08:00 09/11/17 07:59 08/14/17 18:06 200 MG Apixaban (Eliquis Tab) 2.5 mg BID PO 08/11/17 21:00 09/10/17 20:59 08/13/17 22:01 2.5 MG Aspirin (Ecotrin Tab) 81 mg QAM PO 08/12/17 09:00 09/11/17 08:59 08/13/17 13:31 81 MG Calcium Acetate (Phoslo Cap) 667 mg TIDM PO 08/12/17 08:00 09/11/17 07:59 08/14/17 18:06 667 MG Docusate Sodium (coLACE CAP) 100 mg BID PO 08/11/17 21:00 09/10/17 20:59 08/13/17 22:01 100 MG Finasteride (Proscar Tab) 5 mg HS PO 08/11/17 21:00 09/10/17 20:59 08/13/17 22:01 5 MG Salmeterol Xinafoate/ Fluticasone (Advair Diskus 250/50 Inh) 1 puff BID INH 08/11/17 21:00 09/10/17 20:59 08/13/17 22:00 1 PUFF Furosemide (Lasix Tab) 80 mg BID17 PO 08/12/17 09:00 09/11/17 08:59 08/14/17 18:07 80 MG Gabapentin (Neurontin Cap) 300 mg HS PO 08/11/17 21:00 09/10/17 20:59 08/13/17 22:01 300 MG Insulin Glargine (Lantus Solostar Pen) 16 units QPM SC 08/11/17 21:00 09/10/17 20:59 08/13/17 22:09 16 UNITS Metoprolol Succinate (Toprol Xl Tab) 100 mg BID PO 08/11/17 21:00 09/10/17 20:59 08/13/17 22:06 100 MG Midodrine (Proamatine Tab) 2.5 mg TID@08,12,17 PO 08/12/17 08:00 09/11/17 07:59 08/14/17 18:06 2.5 MG Polyethylene (Miralax Powder Packet) 17 gm DAILY PO 08/12/17 09:00 09/11/17 08:59 08/13/17 13:33 17 GM Simvastatin (Zocor Tab) 40 mg QPM PO 08/11/17 21:00 09/10/17 20:59 08/13/17 22:00 40 MG
[2017-08-14] MEDS: FINASTERIDE 5 MG TAB PO SCH (20:42)
[2017-08-14] MEDS: GABAPENTIN 300 MG CAP PO SCH (20:42)
[2017-08-14] MEDS: SIMVASTATIN 40 MG TAB PO SCH (20:43)
[2017-08-14] MEDS: INSULIN GLARGINE SOLOSTAR 100 UNITS/ML 3 ML PEN SC SCH (20:51)
[2017-08-15 07:48] VITALS: BP 111/71; PULSE 107; TEMP 36.7; O2SAT 94
[2017-08-15 08:00] VITALS: O2SAT 94
[2017-08-15] MEDS: FLUTICASONE/SALMETEROL 250/50 (ADVAIR) 14 PUFF/1 INHALER INH SCH (08:01)
[2017-08-15] MEDS: CALCIUM ACETATE 667MG GELCAP PO SCH ×2 (08:01→13:07)
[2017-08-15] MEDS: MIDODRINE 2.5 MG TAB PO SCH ×2 (08:02→12:27)
[2017-08-15] MEDS: DOCUSATE SODIUM 100 MG CAP PO SCH (08:02)
[2017-08-15] MEDS: ASPIRIN 81 MG ECTAB PO SCH (08:02)
[2017-08-15] MEDS: METOPROLOL SUCC 50MG EXT REL TAB PO SCH (08:02)
[2017-08-15] MEDS: AMIODARONE 200 MG TAB PO SCH (08:02)
[2017-08-15] MEDS: APIXABAN 2.5 MG TAB PO SCH (08:03)
[2017-08-15] MEDS: POLYETHYLENE (MIRALAX) 17 GM PACK PO SCH (08:03)
[2017-08-15] MEDS: FUROSEMIDE 40 MG TAB PO SCH (08:03)
[2017-08-15 12:30] VITALS: BP 111/71; PULSE 107; TEMP 36.7; O2SAT 94
--- NOTE | 2017-08-15 15:13 | Progress Note ---
Medicine Progress Note Date & Time of Visit: Aug 15, 2017 at 15:10 . Subjective Feels well. Anxious to get back to [facility]. No CP, SOB, or other problems. . Objective Last 8 Hrs Date Time Temp Pulse Resp B/P (MAP) Pulse Ox O2 Delivery O2 Flow Rate FiO2 08/15/17 12:30 36.7 107 20 94 Nasal Cannula 08/15/17 08:00 94 Nasal Cannula 3.0 08/15/17 07:48 36.7 107 20 111/71 (84) 94 2.0 Physical Exam: General- sitting on side of bed, no acute distress Lungs- mild wheezing; no respiratory distress Cardiovascular- regular, no gallop appreciated, + JVD, 1+ pretibial edema Abdomen- + BS, soft, nontender Extremities- no calf tenderness Neuro- alert Skin- warm and dry . Laboratory Results: Last 24 Hours Test 08/14/17 16:49 08/14/17 20:12 08/15/17 07:26 08/15/17 11:03 Bedside Glucose 121 mg/dl 208 mg/dl 132 mg/dl 291 mg/dl Assessment & Plan CKD V CKD stage V on hemodialysis. Admitted with fluid overload. Received extra dialysis treatments with improvement. Ongoing management per Nephrology. CORONARY ARTERY DISEASE No chest pain. Cardiac markers negative. Continue aspirin, metoprolol, statin. CHF (mixed LV systolic + diastolic and right heart failure) Chronic left ventricular systolic heart failure with EF of 35-40 %, left ventricular diastolic heart failure, probable right-sided heart failure. Fluid management with hemodialysis. No NICO or ARB due to CKD. PAROXYSMAL ATRIAL FIB Continue amiodarone, metoprolol, apixaban. HYPERTENSION Continue metoprolol succinate Follow and titrate Rx. CHRONIC HYPOXIC, HYPERCAPNIC RESPIRATORY FAILURE Chronic hypoxic respiratory failure on home O2 due to COPD. Continue supplemental O2. COPD Continue O2 and Advair. PULMONARY NODULES Noted on previous CT imaging as far back as 2011. PET scan 04/06/16: bilat pulmonary granulomata bilat noncalcified pulmonary nodules, no appreciable FDG activity CT 05/27/17- stable findings compared to 2012. DIABETES MELLITUS TYPE 2 Fairly well-controlled. Hemoglobin A1c 7.2 07/18/17. FBS = 132. Discharge on usual regimen. BPH Continue finasteride. VTE PROPHYLAXIS Continue apixaban. Ambulate as able. DISPOSITION Returning to [facility] for skilled care. Family Medicine follow-up with and Dr. Kam Dickey. Nephrology f/u with Dr. Fraser. . Current Inpatient Medications: Current Inpatient Medications Medications (Trade) Dose Ordered Sig/Ronak Route Start Time Stop Time Status Last Admin Dose Admin Acetaminophen (Tylenol Tab) 650 mg Q4H PRN PO 08/11/17 17:45 09/10/17 17:44 08/13/17 21:50 650 MG Ondansetron HCl (Zofran Inj) 4 mg Q6H PRN IV 08/11/17 17:45 09/10/17 17:44 Amiodarone HCl (Cordarone Tab) 200 mg BIDM PO 08/12/17 08:00 09/11/17 07:59 08/15/17 08:02 200 MG Apixaban (Eliquis Tab) 2.5 mg BID PO 08/11/17 21:00 09/10/17 20:59 08/15/17 08:03 2.5 MG Aspirin (Ecotrin Tab) 81 mg QAM PO 08/12/17 09:00 09/11/17 08:59 08/15/17 08:02 81 MG Calcium Acetate (Phoslo Cap) 667 mg TIDM PO 08/12/17 08:00 09/11/17 07:59 08/15/17 13:07 667 MG Docusate Sodium (coLACE CAP) 100 mg BID PO 08/11/17 21:00 09/10/17 20:59 08/15/17 08:02 100 MG Finasteride (Proscar Tab) 5 mg HS PO 08/11/17 21:00 09/10/17 20:59 08/14/17 20:42 5 MG Salmeterol Xinafoate/ Fluticasone (Advair Diskus 250/50 Inh) 1 puff BID INH 08/11/17 21:00 09/10/17 20:59 08/15/17 08:01 1 PUFF Furosemide (Lasix Tab) 80 mg BID17 PO 08/12/17 09:00 09/11/17 08:59 08/15/17 08:03 80 MG Gabapentin (Neurontin Cap) 300 mg HS PO 08/11/17 21:00 09/10/17 20:59 08/14/17 20:42 300 MG Insulin Glargine (Lantus Solostar Pen) 16 units QPM SC 08/11/17 21:00 09/10/17 20:59 08/14/17 20:51 16 UNITS Metoprolol Succinate (Toprol Xl Tab) 100 mg BID PO 08/11/17 21:00 09/10/17 20:59 08/15/17 08:02 100 MG Midodrine (Proamatine Tab) 2.5 mg TID@08,12,17 PO 08/12/17 08:00 09/11/17 07:59 08/15/17 12:27 2.5 MG Polyethylene (Miralax Powder Packet) 17 gm DAILY PO 08/12/17 09:00 09/11/17 08:59 08/15/17 08:03 17 GM Simvastatin (Zocor Tab) 40 mg QPM PO 08/11/17 21:00 09/10/17 20:59 08/14/17 20:43 40 MG
--- NOTE | 2017-08-15 15:30 | Discharge Instructions ---
Discharge Instructions Date of Service Aug 15, 2017. Admission Reason for Admission: chronic kidney disease with volume overload . Discharge Discharge Diagnosis / Problem: chronic kidney disease with volume overload Discharge Goals Goal(s): Improve function, Improve disease control Activity Recommendations Activity Level: Assistance Required Therapies: Physical Therapy, Occupational Therapy . Additional Information Patient informed of condition: Yes Advance Directives: Yes DNR: No Level of Care: Skilled Communicable Disease: No Prognosis: Improving Oxygen at (LPM): 2 LPM Wallace Catheter: No Instructions / Follow-Up Instructions / Follow-Up Thank you for receiving this patient in transfer. Please call if you have any questions. Kyler Mendez . Current Hospital Diet Patient's current hospital diet: AHA Diet (Heart Healthy), Low Sodium Diet (2gm Na), Renal Diet Discharge Diet Recommended Diet: AHA Diet (Heart Healthy), Diabetes Type 2 Diet, Renal Diet Fluid Restriction: 1500 ml (6 cups) Pending Studies Studies pending at discharge: no Physician Orders On Transfer Special Precautions: fall precautions . Vital Signs: routine . Weigh: routine . Additional Orders: Hemodialysis as directed by Dr. Fraser. . Laboratory Results Hemoglobin A1c Test 08/04/17 04:55 Range/Units Estimated Average Glucose 151 mg/dl Hemoglobin A1c 6.9 H 4.5-5.6 % Medical Emergencies . Who to Call and When: Medical Emergencies: If at any time you feel your situation is an emergency, please call 911 immediately. . Non-Emergent Contact Non-Emergency issues call your: Primary Care Provider, Hospital Doctor, [employer] Manufact[employer] . . "Provider Documentation" section prepared by Kyler Mendez. . Core Measure Problem Core Measures: None
--- NOTE | 2017-08-15 15:33 | Discharge Summary ---
Discharge Summary Date of Service Aug 15, 2017. Discharge Summary Admission Date: Aug 11, 2017 at 17:42 Discharge Date: Aug 15, 2017 Discharge Disposition: [facility] facility ([facility]) Principal Diagnosis: CKD stage V with volume overload . Secondary Diagnoses/Problems: Chronic and Resolved Medical Problems: (1) Atrial fibrillation Status: Chronic (2) CAD (coronary artery disease) Permanent Comment: 1995 - inferior wall SC 1999 - RCA intervention 2006 - left cx intervention 07/2010 - high grade mid and RCA stenosis inside prior stenting s/p intervention 2010 - stent occlusion due to ASA and Plavix being held for procedure; RCA was unable to be reopened, s/p stent to left cx Status: Chronic (3) Chronic hypoxemic respiratory failure Status: Chronic (4) CKD (chronic kidney disease), stage IV Status: Chronic (5) COPD (chronic obstructive pulmonary disease) Status: Chronic (6) DM2 (diabetes mellitus, type 2) Status: Chronic (7) ESRD on dialysis Status: Chronic (8) HLD (hyperlipidemia) Status: Chronic (9) HTN (hypertension) Status: Chronic (10) Pulmonary nodules Permanent Comment: multiple calcified and noncalcified pulmonary nodules noted on CT chest 11/14/11 Status: Chronic (11) Systolic and diastolic CHF, chronic Permanent Comment: echo 2011 - EF 35-40%, grade II diastolic dysfunction Status: Chronic Surgical Problems: (1) H/O hernia repair Status: Chronic (2) s/p laser vaporization of prostate 11/01/11 Status: Chronic (3) Transurethral prostatectomy Status: Chronic . Procedures: hemodialysis . Consultations: Nephrology with Dr. Fraser . Medication Reconciliation Continued Medications: Aluminum/Magnesium/Simeth (Maalox Max Susp) Susp 15 ML PO Q6 PRN for Indigestion Amiodarone HCl (Amiodarone HCl) 200 Mg Tab 200 MG PO BIDM for 30 Days, #60 TAB Apixaban (Eliquis) 2.5 Mg Tab 2.5 MG PO BID for 30 Days, #60 TAB Aspirin (Aspirin Ec) 81 Mg Tab 81 MG PO QAM Bisacodyl (Bisac-Evac) 10 Mg Sup 1 RE PRN for Constipation Calcium Acetate (Phoslo 667 Mg) 667 Mg Cap 667 MG PO TIDM for 30 Days, #90 CAP Docusate Sodium (Docusate Sodium) 100 Mg Cap 100 MG PO BID for 30 Days, #60 CAP Finasteride (Proscar) 5 Mg Tab 5 MG PO HS Fluticasone Prop/Salmeterol (Advair Diskus 250/50 60 Dose) 1 Ea Aerp 1 PUFF INH BID Furosemide (Furosemide) 40 Mg Tab 80 MG PO BID Gabapentin (Neurontin) 300 Mg Cap 300 MG PO HS Insulin Aspart (Novolog Flexpen) 100 Units/Ml Inj SQ ACHS Insulin Glargine (Lantus Solostar) 100 Unit/Ml Inj 16 UNITS SC QPM for 30 Days, #5 PEN Metoprolol Succinate (Metoprolol Succinate ER) 50 Mg Tabcr 100 MG PO BID for 30 Days, #120 TABS Midodrine (Midodrine HCl) 2.5 Mg Tab 2.5 MG PO TID@08,12,17 for 30 Days, #90 TAB Nitroglycerin (Nitrostat) 0.4 Mg Tab 0.4 MG UT UD PRN for Chest Pain Polyethylene (Miralax) 17 Gm Pow 17 GM PO DAILY for 30 Days, #30 PKT Simvastatin (Simvastatin) 40 Mg Tab 40 MG PO QPM Sodium Phosphate/Biphosphate (Fleet Enema) Casie 1 EA HI DAILY PRN for Constipation, BTL Admission Information HPI (per Admitting provider): 87 year old male who was sent to the ED from dialysis for volume overload and hypotension. Patient was recently admitted to [facility] 07/16 - 08/03 for acute on chronic renal failure requiring initiation of dialysis, acute on chronic systolic CHF, and atrial fibrillation. During that admission, patient was started on amiodarone, Eliquis, and midodrine. Metoprolol dose was decreased. Digoxin and isosorbide were discontinued. Patient reports he has been feeling well since being discharged. While at dialysis today, they were attempting to remove fluid however patient was becoming hypotensive. Per Dr. Fraser, patient is currently 5kg over. Patient denies chest pain, shortness of breath, and palpitations. No lightheadedness, dizziness, diaphoresis, or syncopal events. He denies abdominal pain, nausea, vomiting, and diarrhea. No fevers or chills. He denies urinary symptoms. In the ED, patient's work up is unremarkable and is hemodynamically stable. . Physical Exam (per Admitting): General Appearance: WD/WN, no apparent distress Head: normocephalic, atraumatic Eyes: normal inspection, EOMI, sclerae normal ENT: hearing grossly normal, + pertinent finding (mucous membranes moist) Neck: supple, no JVD, trachea midline Respiratory/Chest: no respiratory distress, + crackles (fine, BL bases) Cardiovascular: normal peripheral pulses, + irregularly irregular (rate controlled), + pertinent finding (trace edema BLLE) Abdomen/GI: normal bowel sounds, non tender, soft, no organomegaly, + distended Extremities/Musculoskelatal: normal inspection, no calf tenderness, normal capillary refill Neurologic/Psych: no motor/sensory deficits, alert, normal mood/affect, oriented x 3 Skin: normal color, warm/dry Hospital Course CKD V CKD stage V on hemodialysis. Admitted with fluid overload. Received extra dialysis treatments with improvement. Ongoing management per Nephrology. CORONARY ARTERY DISEASE No chest pain. Cardiac markers negative. Continue aspirin, metoprolol, statin. CHF (mixed LV systolic + diastolic and right heart failure) Chronic left ventricular systolic heart failure with EF of 35-40 %, left ventricular diastolic heart failure, probable right-sided heart failure. Fluid management with hemodialysis. No NICO or ARB due to CKD. PAROXYSMAL ATRIAL FIB Continue amiodarone, metoprolol, apixaban. HYPERTENSION Continue metoprolol succinate Follow and titrate Rx. CHRONIC HYPOXIC, HYPERCAPNIC RESPIRATORY FAILURE Chronic hypoxic respiratory failure on home O2 due to COPD. Continue supplemental O2. COPD Continue O2 and Advair. PULMONARY NODULES Noted on previous CT imaging as far back as 2012. PET scan 04/06/16: bilat pulmonary granulomata bilat noncalcified pulmonary nodules, no appreciable FDG activity CT 05/27/17- stable findings compared to 2012. DIABETES MELLITUS TYPE 2 Fairly well-controlled. Hemoglobin A1c 7.2 07/18/17. FBS = 132. Discharge on usual regimen. BPH Continue finasteride. VTE PROPHYLAXIS Continue apixaban. Ambulate as able. DISPOSITION Returning to [facility] for skilled care. Family Medicine follow-up with and Dr. Kam Dickey. Nephrology f/u with Dr. Fraser. . Total time spent on discharge = 45 min. This includes examination of the patient, discharge planning, medication reconciliation, and communication with other providers. . Discharge Instructions Date of Service Aug 15, 2017. Admission Reason for Admission: chronic kidney disease with volume overload . Discharge Discharge Diagnosis / Problem: chronic kidney disease with volume overload Discharge Goals Goal(s): Improve function, Improve disease control Activity Recommendations Activity Level: Assistance Required Therapies: Physical Therapy, Occupational Therapy . Additional Information Patient informed of condition: Yes Advance Directives: Yes DNR: No Level of Care: Skilled Communicable Disease: No Prognosis: Improving Oxygen at (LPM): 2 LPM Wallace Catheter: No Instructions / Follow-Up Instructions / Follow-Up Thank you for receiving this patient in transfer. Please call if you have any questions. Kyler Mendez . Current Hospital Diet Patient's current hospital diet: AHA Diet (Heart Healthy), Low Sodium Diet (2gm Na), Renal Diet Discharge Diet Recommended Diet: AHA Diet (Heart Healthy), Diabetes Type 2 Diet, Renal Diet Fluid Restriction: 1500 ml (6 cups) Pending Studies Studies pending at discharge: no Physician Orders On Transfer Special Precautions: fall precautions . Vital Signs: routine . Weigh: routine . Additional Orders: Hemodialysis as directed by Dr. Fraser. . Laboratory Results Hemoglobin A1c Test 08/04/17 04:55 Range/Units Estimated Average Glucose 151 mg/dl Hemoglobin A1c 6.9 H 4.5-5.6 % Medical Emergencies . Who to Call and When: Medical Emergencies: If at any time you feel your situation is an emergency, please call 911 immediately. . Non-Emergent Contact Non-Emergency issues call your: Primary Care Provider, Hospital Doctor, Foreign Service Officer . . "Provider Documentation" section prepared by Kyler Mendez. . Core Measure Problem Core Measures: None . Additional Copies To Kerrie Fraser I.,
== END 2017-08-15 18:00 | DRG 640 ==
LOC: EDBD 14:50 → C.EDC 14:52 → C.MS2W 17:42 → ENRESERV 18:26 → C.MED 08-13 21:49 → C.MS2W 08-13 21:49 → ENRESERV 08-13 21:54 → CMPBEDREQ 08-13 23:05
PROVIDERS: ADMIT Family Medicine; ATTEND Hospitalist
DX: E87.70 Fluid overload, unspecified (principal); N18.6 End stage renal disease; I13.2 Hypertensive heart and chronic kidney disease with heart failure and with stage 5 chronic kidney disease, or end stage renal disease; J96.11 Chronic respiratory failure with hypoxia; J96.12 Chronic respiratory failure with hypercapnia; I50.42 Chronic combined systolic (congestive) and diastolic (congestive) heart failure; I48.92 Unspecified atrial flutter; I95.3 Hypotension of hemodialysis; E11.22 Type 2 diabetes mellitus with diabetic chronic kidney disease; I48.0 Paroxysmal atrial fibrillation; I25.10 Atherosclerotic heart disease of native coronary artery without angina pectoris; N25.0 Renal osteodystrophy; D63.1 Anemia in chronic kidney disease; J44.9 Chronic obstructive pulmonary disease, unspecified; E78.5 Hyperlipidemia, unspecified; N40.0 Benign prostatic hyperplasia without lower urinary tract symptoms; I25.2 Old myocardial infarction; Z99.2 Dependence on renal dialysis; Z95.5 Presence of coronary angioplasty implant and graft; Z79.01 Long term (current) use of anticoagulants; Z79.4 Long term (current) use of insulin; Z79.51 Long term (current) use of inhaled steroids; Z79.82 Long term (current) use of aspirin; Z79.899 Other long term (current) drug therapy

== ENCOUNTER 2017-11-30 18:28 | Inpatient (IN) | payer OTHER ==
[~2017-11-30] VITALS: Ht 185.4 cm; Wt 123.6 kg
[2017-11-30] VITALS (7 sets, daily range): BP systolic 79–89; BP diastolic 38–49; PULSE 79–96; TEMP 36.4; O2SAT 35–95; Ht 185.4 cm; Wt 123.6 kg
[~2017-11-30 18:28] MED LIST changes: -ALBU18002 INH; +ALUMSUS2 PO; +BISA10SU7 RE; -FLM4 PO; +NVLGI/PEN SQ; -NVLGIPEN SC; -OXGN; +SODIENE PR
[2017-11-30] MEDS ORDERED: SODIUM CHLORIDE 0.9% 500ML 500 ML IV STA (18:51)
[2017-11-30] MEDS ORDERED: MIDODRINE 2.5 MG TAB PO STA (19:06)
--- NOTE | 2017-11-30 19:10 | EMERGENCY ROOM VISIT NOTE ---
History Report prepared by Jacquie: Natalie Ballard Under the Supervision of: Dr. Jo Denny M.D. First contact with patient: 18:40 Chief Complaint: HYPOTENSION Stated Complaint: DIZZY, LOSS OF LEG CONTROL, LOW BP History of Present Illness The patient is an 87 year old male who presents to the Emergency Room with complaints of persistent general weakness for one week. The patient reports feeling lightheaded and dizzy as well. Per family, the patients blood pressure has been running lower than normal. He currently has a systolic blood pressure of 60. He had dialysis today. He states that he felt worse after dialysis. He notes that he has been able to eat. He states that he had bloody stools last week for one night, though denies any recurrent bloody stools. He normally wears 2 L oxygen at home via [place]. He is unsure if he has had any fevers. He denies any productive coughs. He denies any smoking. The patient is on blood thinners. Source of History: patient Onset: one week Position: other (general ) Symptom Intensity: 60 systolic Quality: other (weakness) Timing: other (persistent) Associated Symptoms: No cough Note: Notes low blood pressure, lightheadedness, and dizziness. Notes bloody stools. Review of Systems See HPI for pertinent positives & negatives. A total of 10 systems reviewed and were otherwise negative. Past Medical & Surgical Medical Problems: (1) Atrial fibrillation (2) CAD (coronary artery disease) (3) Chronic hypoxemic respiratory failure (4) CKD (chronic kidney disease), stage IV (5) COPD (chronic obstructive pulmonary disease) (6) DM2 (diabetes mellitus, type 2) (7) ESRD on dialysis (8) HLD (hyperlipidemia) (9) HTN (hypertension) (10) Pulmonary nodules (11) Respiratory failure, [id number] (12) Systolic and diastolic CHF, chronic Surgical Problems: (1) H/O hernia repair (2) s/p laser vaporization of prostate 11/01/11 (3) Transurethral prostatectomy Family History Heart disease Social History Smoking Status: Former Smoker Marital Status: single Housing Status: lives with family Occupation Status: unemployed Current/Historical Medications Scheduled Albuterol Hfa (Ventolin Hfa), 2 PUFFS INH QID Amiodarone Hcl (Cordarone), 200 MG PO BID Apixaban (Eliquis), 2.5 MG PO BID Aspirin (Aspirin Ec), 81 MG PO QAM Calcium Acetate (Phoslo 667 Mg), 1 CAP PO TIDM Docusate Sodium (Docusate Sodium), 100 MG PO BID Finasteride (Proscar), 5 MG PO HS Fluticasone Prop/Salmeterol (Advair Diskus 250/50 60 Dose), 1 PUFF INH BID Furosemide (Furosemide), 80 MG PO BID Gabapentin (Neurontin), 300 MG PO HS Home O2 Therapy (Oxygen), 2 LITERS NA DIRECTED Insulin Aspart (Novolog Flexpen), 4 UNITS SQ AC Insulin Glargine (Lantus), 48 UNITS SC BID Licorice (Licorice Root), 450 MG PO DAILY Metoprolol Tartrate (Lopressor) (Lopressor), 100 MG PO BID Midodrine (Midodrine HCl), 2.5 MG PO TID Simvastatin (Simvastatin), 20 MG PO QPM Scheduled PRN Nitroglycerin (Nitrostat), 0.4 MG UT UD PRN for Chest Pain Oxycodone Ir (Roxicodone Ir), 5 MG PO Q4H PRN for Severe Pain Polyethylene Glycol 3350 (Miralax), 17 GM PO DAILY PRN for Constipation Tramadol (Ultram), 50 MG PO Q8H PRN for Pain Allergies Coded Allergies: Iodine (Verified Allergy, Severe, HIVES, 11/30/17) Heparin (Verified Allergy, Unknown, UNKNOWN, 11/30/17) OK TO GIVE DWELL Sulfa Antibiotics (Verified Allergy, Unknown, ENTERED SULFA- UNKNOWN, ) Physical Exam Vital Signs Date Time Temp Pulse Resp B/P (MAP) Pulse Ox O2 Delivery O2 Flow Rate FiO2 11/30/17 21:30 99/58 11/30/17 21:26 90 26 98 11/30/17 21:15 105/59 11/30/17 21:11 88 22 97 11/30/17 21:00 118/60 11/30/17 20:56 91 17 96 11/30/17 20:51 91/52 96 BiPAP 50 11/30/17 20:50 97 11/30/17 20:35 90 20 94 11/30/17 20:30 97/65 11/30/17 20:24 90 22 95 BiPAP/CPAP 50 11/30/17 20:20 91 24 97 11/30/17 20:15 102/55 11/30/17 20:05 93 23 96 11/30/17 20:00 95/59 11/30/17 19:56 90 94 50 11/30/17 19:50 100 22 94 11/30/17 19:45 80/48 11/30/17 19:43 98 19 96 Oxymask 15.0 11/30/17 19:37 92 11/30/17 19:30 94/53 11/30/17 19:28 91 22 95 11/30/17 19:21 76/50 11/30/17 19:13 90 24 90 11/30/17 19:11 96 Oxymask 11/30/17 19:08 89 23 82/46 94 11/30/17 19:03 93 17 89 Nasal Cannula 6.0 11/30/17 19:00 63/47 11/30/17 19:00 93 Oxymask 15.0 11/30/17 18:58 92 29 89 Nasal Cannula 6.0 11/30/17 18:57 69/47 11/30/17 18:53 103 33 91 11/30/17 18:49 71/48 11/30/17 18:36 36.6 93 22 81/48 81 Nasal Cannula 1.0 Physical Exam Vital signs reviewed. Oxygen in place, hypotensive, hypoxic. General: Chronically ill-appearing, elderly, in no significant distress. HEENT: No scleral icterus, PERRLA, neck supple. Atraumatic. Cardiovascular: Controlled rate and irregular rhythm, no extra sounds. Pulmonary: Clear to auscultation bilaterally, normal work of breathing. Abdomen: Soft, nontender, nondistended, positive bowel sounds. Musculoskeletal: Atraumatic, minimal peripheral edema. Neurologic: Patient awake alert and answering some questions appropriately. Able to follow commands. Skin: Warm, dry, no rash Medical Decision & Procedures ER Provider Diagnostic Interpretation: Radiology results as stated below per my review and radiologist interpretation: CHEST ONE VIEW PORTABLE CLINICAL HISTORY: 87 years-old Male presenting with Sepsis. TECHNIQUE: Portable upright AP view of the chest was obtained. COMPARISON: 02/08/2018. FINDINGS: Dual lumen tunneled right internal jugular dialysis catheter terminates in the lower SVC, unchanged. Atherosclerosis of the aortic arch with prominence and tortuosity of the thoracic aorta. Cardiac silhouette moderately enlarged and partially secured due to extensive paramediastinal and bibasilar opacities. Interval increase in central and basilar predominant reticular and dense opacities. Overall heterogeneity of lung markings. Pulmonary vascular prominence suggested. Bronchial wall thickening. Left pleural effusion is difficult to exclude. No large pneumothorax. Degenerative changes of the thoracic spine. Old fracture deformity of the right clavicle. Changes of the left glenohumeral joint. IMPRESSION: 1. Cardiomegaly with findings suggestive of volume overload. 2. Central and bibasilar predominant dense opacities could represent moderate pulmonary edema, aspiration, or multifocal infection. 3. Infiltrates may be superimposed on chronic lung disease. Electronically signed by: Marcello Cullen M.D. 11/30/2017 7:44 PM Dictated Date/Time: 11/30/2017 7:42 PM Laboratory Results 11/30/17 19:00 Red Blood Count 3.47, Mean Corpuscular Volume 96.3, Mean Corpuscular Hemoglobin 29.7, Mean Corpuscular Hemoglobin Concent 30.8, Mean Platelet Volume 9.8, Neutrophils (%) (Auto) 85.6, Lymphocytes (%) (Auto) 3.6, Monocytes (%) (Auto) 8.7, Eosinophils (%) (Auto) 1.0, Basophils (%) (Auto) 0.4, Neutrophils # (Auto) 9.69, Lymphocytes # (Auto) 0.41, Monocytes # (Auto) 0.99, Eosinophils # (Auto) 0.11, Basophils # (Auto) 0.05 11/30/17 19:00 Test 11/30/17 19:00 11/30/17 19:09 11/30/17 19:43 11/30/17 20:34 White Blood Count 11.33 K/uL (4.8-10.8) Red Blood Count 3.47 M/uL (4.7-6.1) Hemoglobin 10.3 g/dL (14.0-18.0) Hematocrit 33.4 % (42-52) Mean Corpuscular Volume 96.3 fL (80-100) Mean Corpuscular Hemoglobin 29.7 pg (25-34) Mean Corpuscular Hemoglobin Concent 30.8 g/dl (32-36) Platelet Count 136 K/uL (130-400) Mean Platelet Volume 9.8 fL (7.4-10.4) Neutrophils (%) (Auto) 85.6 % Lymphocytes (%) (Auto) 3.6 % Monocytes (%) (Auto) 8.7 % Eosinophils (%) (Auto) 1.0 % Basophils (%) (Auto) 0.4 % Neutrophils # (Auto) 9.69 K/uL (1.4-6.5) Lymphocytes # (Auto) 0.41 K/uL (1.2-3.4) Monocytes # (Auto) 0.99 K/uL (0.11-0.59) Eosinophils # (Auto) 0.11 K/uL (0-0.5) Basophils # (Auto) 0.05 K/uL (0-0.2) RDW Standard Deviation 56.9 fL (36.4-46.3) RDW Coefficient of Variation 16.1 % (11.5-14.5) Immature Granulocyte % (Auto) 0.7 % Immature Granulocyte # (Auto) 0.08 K/uL (0.00-0.02) Prothrombin Time 11.5 SECONDS (9.0-12.0) Prothromb Time International Ratio 1.1 (0.9-1.1) Activated Partial Thromboplast Time 31.2 SECONDS (21.0-31.0) Partial Thromboplastin Ratio 1.2 Anion Gap 6.0 mmol/L (3-11) Est Creatinine Clear Calc Drug Dose 16.3 ml/min Estimated GFR () 12.1 Estimated GFR (Non- 10.4 BUN/Creatinine Ratio 6.9 (10-20) Calcium Level 8.4 mg/dl (8.5-10.1) Total Bilirubin 0.4 mg/dl (0.2-1) Aspartate Amino Transf (AST/SGOT) 7 U/L (15-37) Alanine Aminotransferase (ALT/SGPT) 14 U/L (12-78) Alkaline Phosphatase 66 U/L (45-117) Total Protein 7.4 gm/dl (6.4-8.2) Albumin 3.0 gm/dl (3.4-5.0) Globulin 4.4 gm/dl (2.5-4.0) Albumin/Globulin Ratio 0.7 (0.9-2) Bedside Lactic Acid Venous 1.18 mmol/L (0.90-1.70) Urine Color BROWN Urine Appearance TURBID (CLEAR) Urine pH 5.5 (4.5-7.5) Urine Specific [place] 1.025 (1.000-1.030) Urine Protein 2+ (NEG) Urine Glucose (UA) NEG (NEG) Urine Ketones TRACE (NEG) Urine Occult Blood 3+ (NEG) Urine Nitrite NEG (NEG) Urine Bilirubin NEG (NEG) Urine Urobilinogen NEG (NEG) Urine Leukocyte Esterase NEG (NEG) Urine RBC >30 /hpf (0-4) Urine WBC 10-30 /hpf (0-5) Urine Epithelial Cells 10-20 /lpf (0-5) Urine Bacteria 1+ (NEG) Urine Hyaline Casts 10-30 /lpf (0-5) Arterial Blood pH 7.34 (7.35-7.45) Arterial Blood Partial Pressure CO2 54 mmHg (35-46) Arterial Blood Partial Pressure O2 104 mm/Hg (80-95) Arterial Blood HCO3 29 mmol/L (19-24) Arterial Blood Oxygen Saturation 96.0 % (90-95) Arterial Blood Base Excess 2.4 mEq/L (-9-1.8) Arterial Blood Gas Delivery 50% Jay Test POS (POS) Magnesium Level 1.9 mg/dl (1.8-2.4) Procalcitonin 1.10 ng/ml (0-0.5) Laboratory results per my review. Medications Administered Medications (Trade) Dose Ordered Sig/Ronak Route Start Time Stop Time Status Last Admin Dose Admin Sodium Chloride 500 ml @ 999 mls/hr Q31M STAT IV 11/30/17 18:51 11/30/17 19:21 DC 11/30/17 19:04 999 MLS/HR Midodrine (Proamatine Tab) 2.5 mg NOW STAT PO 11/30/17 19:06 11/30/17 19:10 DC 11/30/17 19:26 2.5 MG Ipratropium [place] (Atrovent 0.02% 0.5MG/2.5ML Neb) 0.5 mg NOW ONCE INH 11/30/17 20:15 11/30/17 20:16 DC 11/30/17 20:22 0.5 MG Levalbuterol (Xopenex 1.25MG/ 0.5ML Neb) 1.25 mg NOW ONCE INH 11/30/17 20:15 11/30/17 20:16 DC 11/30/17 20:22 1.25 MG Piperacillin Sod/ Tazobactam Sod (Zosyn Iv) 4.5 gm NOW STAT IV 11/30/17 20:22 11/30/17 20:23 DC 11/30/17 20:59 4.5 GM ECG Per My Interpretation Indication: weakness Rate (beats per minute): 101 Rhythm: atrial fibrillation Findings: LBBB, PVC, no acute ischemic change, other (QTC 518 ms) ED Course 1847: Past medical records reviewed. The patient was evaluated in room A2. A complete history and physical examination was performed. 1850: Ordered Sodium Chloride 500 ml @ 999 mls/hr IV 1904: I reassessed the patient at this time. His blood pressure is 82 systolic. He is doing better with an oxygen mask. 1905: Ordered Midodrine 2.5 mg PO 1914: I reassessed the patient at this time. The patient is improving since his has been on BiPAP. 1933: [facility] the [facility]' s case. [facility] 2014: [facility] I updated him regarding the patient's imaging and labs. 2021: Ordered Zosyn 4.5 gm IV Medical Decision Differential diagnosis: Etiologies such as metabolic, infection, hypo/hyperglycemia, electrolyte abnormalities, cardiac sources, intracerebral event, toxicologic, neurologic, as well as others were entertained. This patient was evaluated and appeared to be in no significant distress. Patient was not able to maintain his oxygenation on home O2. He was increased to 6 L nasal cannula, maintaining saturations in the high 80s. OxiMax was placed which did work temporarily. Patient was eventually placed on BiPAP. Chest x-ray confirmed congestive heart failure, concern for infiltrative changes in the right lower lung field. There is a possibility of aspiration. Patient has a normal lactate and white blood cell count however he has hypoxic and hypotensive. Patient did receive 500 cc bolus of IV normal saline solution as he had dialysis earlier today. Patient takes Midorin 3 times daily, he was given 2.5 mg p.o. blood cultures were obtained and the patient was medicated with IV Zosyn 4.5 g. Patient's case was discussed with the hospitalist service , he will be evaluated for admission and further management. Medication Reconcilliation Current Medication List: was personally reviewed by me Blood Pressure Screening Patient's blood pressure: Low blood pressure monitored by hospitalist Consults Time Called: 1920 Consulting Physician: [facility] Esp[email or web address] Returned Call: 1933 I spoke with Sydney Espinal. We discussed the patient's case. [facility] 2015: I spoke with Sydney Espinal. I updated him regarding the patient's imaging and labs. Impression Primary Impression: CHF (congestive heart failure) Additional Impressions: Hypotension ESRD (end stage renal disease) Aspiration pneumonia of right lower lobe Critical Care I have personally spent greater than 45 minutes of critical care time in the direct management of this patient. This includes bedside care, interpretation of diagnostic studies, and testing, discussion with consultants, patient, and family members, and other required patient management activities. This 45 minutes is in excess of all separately billable procedures. Scribe Attestation The scribe's documentation has been prepared under my direction and personally reviewed by me in its entirety. I confirm that the note above accurately reflects all work, treatment, procedures, and medical decision making performed by me. Departure Information Dispostion Being Evaluated By Hospitalist Referrals Kam Dickey, D.O. (PCP) Patient Instructions My [facility] Problem Qualifiers
[2017-11-30 19:11] LABS: BASO % 0.4 %; BASO ABS # 0.05 K/uL (0-0.2); EOS ABS # 0.11 K/uL (0-0.5); HEMATOCRIT 33.4 % (42-52); HEMOGLOBIN 10.3 g/dL (14.0-18.0); IG# 0.08 K/uL (0.00-0.02); LYMPH % 3.6 %; LYMPH ABS # 0.41 K/uL (1.2-3.4); MEAN CELL VOLUME 96.3 fL (80-100); MEAN CORPUSCULAR HEMOGLOBIN 29.7 pg (25-34); MEAN CORPUSCULAR HGB CONC 30.8 g/dl (32-36); MEAN PLATELET VOLUME 9.8 fL (7.4-10.4); MONO % 8.7 %; MONO ABS # 0.99 K/uL (0.11-0.59); NEUT % 85.6 %; NEUT ABS # 9.69 K/uL (1.4-6.5); PLATELET COUNT 136 K/uL (130-400); RED CELL DISTRIBUTION WIDTH CV 16.1 % (11.5-14.5); RED CELL DISTRIBUTION WIDTH SD 56.9 fL (36.4-46.3); WHITE BLOOD COUNT 11.33 K/uL (4.8-10.8)
[2017-11-30 19:23] LABS: INR 1.1 (0.9-1.1); PTT PATIENT 31.2 SECONDS (21.0-31.0)
[2017-11-30] MEDS ORDERED: CALC667C4 PO (19:28)
[2017-11-30] MEDS ORDERED: [UNRECOGNIZED DRUG - CODE] PO (19:28)
[2017-11-30] MEDS ORDERED: POLY335019 PO (19:28)
[2017-11-30] MEDS ORDERED: DOCU100C31 PO (19:28)
[2017-11-30] MEDS ORDERED: OXGN (19:28)
[2017-11-30] MEDS ORDERED: AMIO200T4 PO (19:28)
[2017-11-30] MEDS ORDERED: SIMV-151 PO (19:28)
[2017-11-30] MEDS ORDERED: TRAM-10 PO (19:28)
[2017-11-30] MEDS ORDERED: METO100T14 PO (19:28)
[2017-11-30] MEDS ORDERED: INSDGI SC (19:28)
[2017-11-30] MEDS ORDERED: VNTHFA/IN INH (19:28)
[2017-11-30] MEDS ORDERED: PRMT25 PO (19:28)
[2017-11-30] MEDS ORDERED: OXYC1TAB3 PO (19:28)
[2017-11-30] MEDS ORDERED: APIX1TAB PO (19:28)
--- NOTE | 2017-11-30 19:45 | DIAGNOSTIC IMAGING REPORT ---
CHEST ONE VIEW PORTABLE CLINICAL HISTORY: 87 years-old Male presenting with Sepsis. TECHNIQUE: Portable upright AP view of the chest was obtained. COMPARISON: 02/08/2018. FINDINGS: Dual lumen tunneled right internal jugular dialysis catheter terminates in the lower SVC, unchanged. Atherosclerosis of the aortic arch with prominence and tortuosity of the thoracic aorta. Cardiac silhouette moderately enlarged and partially secured due to extensive paramediastinal and bibasilar opacities. Interval increase in central and basilar predominant reticular and dense opacities. Overall heterogeneity of lung markings. Pulmonary vascular prominence suggested. Bronchial wall thickening. Left pleural effusion is difficult to exclude. No large pneumothorax. Degenerative changes of the thoracic spine. Old fracture deformity of the right clavicle. Changes of the left glenohumeral joint. IMPRESSION: 1. Cardiomegaly with findings suggestive of volume overload. 2. Central and bibasilar predominant dense opacities could represent moderate pulmonary edema, aspiration, or multifocal infection. 3. Infiltrates may be superimposed on chronic lung disease. Electronically signed by: Marcello Cullen M.D. 11/30/2017 7:44 PM Dictated Date/Time: 11/30/2017 7:42 PM
[2017-11-30 19:51] LABS: CALCIUM 8.4 mg/dl (8.5-10.1); POTASSIUM 3.7 mmol/L (3.5-5.1)
[2017-11-30 19:54] LABS: TOTAL PROTEIN 7.4 gm/dl (6.4-8.2)
[2017-11-30 19:56] LABS: CREATININE 4.73 mg/dl (0.60-1.40)
[2017-11-30] MEDS ORDERED: LEVALBUTEROL/IPRATROPIUM NEB INH STA (19:58)
[2017-11-30] MEDS ORDERED: LEVALBUTEROL/IPRATROPIUM NEB INH PRN (20:00)
[2017-11-30] MEDS ORDERED: LEVALBUTEROL 1.25MG/0.5ML NEB INH ONE (20:15)
[2017-11-30] MEDS ORDERED: IPRATROPIUM BROMIDE NEB SOLN 0.02% 2.5 ML VIAL INH ONE (20:15)
[2017-11-30] MEDS ORDERED: PIPERACILLIN/TAZOBACTAM 4.5 GM/100ML D5W IV STA (20:22)
[2017-11-30] MEDS ORDERED: IPRATROPIUM BROMIDE NEB SOLN 0.02% 2.5 ML VIAL INH PRN (20:30)
[2017-11-30] MEDS ORDERED: LEVALBUTEROL 1.25MG/0.5ML NEB INH PRN (20:30)
--- NOTE | 2017-11-30 20:52 | DIAGNOSTIC IMAGING REPORT ---
HEAD WITHOUT CONTRAST (CT) CLINICAL HISTORY: 87 years-old Male presenting with dizziness, leg weakness. TECHNIQUE: Multidetector CT imaging of the head was performed without the use of intravenous contrast. IV contrast: None. A dose lowering technique was used consistent with the principles of ALARA (as low as reasonably achievable). COMPARISON: None. CT DOSE (mGy.cm): The estimated cumulative dose is 1474.24 mGy.cm. FINDINGS: Lead Athlete topogram: Unremarkable. Proportional ventricular and sulcal prominence, likely age-related parenchymal volume loss. Periventricular and subcortical white matter hypoattenuation, nonspecific but likely indicative of chronic small vessel ischemic change. No mass effect or midline shift. No hemorrhage or acute territorial infarct. No extra-axial fluid collection. Paranasal sinuses and mastoid air cells clear. Calvarium intact. IMPRESSION: 1. Chronic small vessel ischemic change. No acute intracranial abnormality. Electronically signed by: Marcello Cullen M.D. 11/30/2017 8:51 PM Dictated Date/Time: 11/30/2017 8:48 PM
[2017-11-30] MEDS ORDERED: MAGNESIUM SULFATE 1GM / D5W 100 ML IV STA (21:41)
[2017-11-30] MEDS ORDERED: MAGNESIUM SULFATE 1GM / D5W 1 GM BAG IV ONE (21:45)
[2017-11-30] MEDS ORDERED: DOPamine 400MG / D5W 400 MG IV STA (21:50)
[2017-11-30] MEDS ORDERED: NITROGLYCERIN 0.4 MG SL PER TAB CHARGE SL PRN (22:00)
[2017-11-30] MEDS ORDERED: GLUCOSE 10 TABS/TUBE PO PRN (22:00)
[2017-11-30] MEDS ORDERED: CARBOHYDRATES FOR HYPOGLYCEMIA PO PRN (22:00)
[2017-11-30] MEDS ORDERED: GLUCOSE 40% GEL 15 GM TUBE PO PRN (22:00)
[2017-11-30] MEDS ORDERED: ICU PROTOCOL FOR HYPERGLYCEMIA PRN ×2 (22:00→23:00)
[2017-11-30] MEDS ORDERED: ACETAMINOPHEN 325 MG TAB PO PRN (22:00)
[2017-11-30] MEDS ORDERED: DEXTROSE 50% 50 ML SYR IV PRN (22:00)
[2017-11-30] MEDS ORDERED: GLUCAGON FOR INJ 1 MG VIAL SQ PRN (22:00)
[2017-11-30] MEDS ORDERED: INSULIN ASPART 100 UNITS/ML 3 ML PEN SC STA (22:07)
[2017-11-30] MEDS ORDERED: PIPERACILL/TAZOBAC CONSULT ACTIVE PRN (23:00)
[2017-11-30] MEDS ORDERED: APIXABAN 2.5 MG TAB PO ONE (23:33)
[2017-11-30] MEDS ORDERED: TRAMADOL HCL 50 MG TAB PO PRN (23:45)
[2017-11-30] MEDS ORDERED: PROCHLORPERAZINE INJ 5 MG in SYRINGE 4 ML IV PRN (23:45)
[2017-11-30] MEDS ORDERED: POLYETHYLENE (MIRALAX) 17 GM PACK PO PRN (23:45)
[2017-11-30] MEDS ORDERED: OXYCODONE HCL IR 5 MG TAB (IMMEDIATE RELEASE) PO PRN (23:45)
[2017-12-01] VITALS (52 sets, daily range): BP systolic 83–118; BP diastolic 42–75; PULSE 74–112; TEMP 36.3–36.8; O2SAT 88–100
[2017-12-01] MEDS ORDERED: AZTREONAM IV 1,000 MG in DEXTROSE 5% 100ML 100 ML IV SCH ×2
[2017-12-01 00:03] LABS: CKMB 2.1 ng/ml (0.5-3.6)
--- NOTE | 2017-12-01 00:08 | Critical Care Consultation ---
Critical Care Consultation Date of Consultation: December 01, 2017. Attending Physician: Daysi Page DO Reason for Consultation: 87-year-old male with a significant past medical history of coronary artery disease, CHF, paroxysmal atrial fibrillation, COPD, and end-stage renal disease on hemodialysis Monday//Monday presenting with hypotension and increasing lethargy for the past week. Concerns for volume overload versus underlying pneumonia process noted. Requiring positive pressure ventilation and close monitoring from a hemodynamic standpoint. History of Present Illness Patient is an 87-year-old male with a significant past medical history of coronary artery disease, hypertension, hyperlipidemia, A. fib, CHF, COPD, and most recently in stage renal disease on hemodialysis who was admitted for increasing lethargy with associated hypotension and hypoxia. Patient has apparently had increasing weakness over the past week. His blood pressures have been running relatively low. During initial evaluation, the patient was sleeping and refused to contribute to HPI. Her documentation, his family reports that generally he has appeared weak. After dialysis today, he was directed to the emergency department for further evaluation and management. In the emergency department, the patient was found to be persistently hypotensive. He did receive a 500 cc normal saline bolus as well as one-time dose of midodrine. In addition, he received a Xopenex/Atrovent nebulizer treatment as well as intravenous Zosyn. He did have a slight leukocytosis on presentation. No significant electrolyte derangement despite chronic kidney disease with a BUN and creatinine of 32 and 4.73. Cuzjr-[id number] lactic acid not elevated. Urine is suspicious for infection. Treated with intravenous Zosyn for concerns of RIGHT lower lobe infiltrate. On evaluation, the patient is resting comfortably with BiPAP in place. He awakens and is alert to person, place, and location. He offers no complaints of pain at this time. He reports no headaches, chest pain, palpitations, reductive cough, nausea, vomiting, or abdominal discomfort. Past Medical/Surgical History Medical Problems: (1) Atrial fibrillation (2) CAD (coronary artery disease) (3) Chronic hypoxemic respiratory failure (4) CKD (chronic kidney disease), stage IV (5) COPD (chronic obstructive pulmonary disease) (6) DM2 (diabetes mellitus, type 2) (7) ESRD on dialysis (8) HLD (hyperlipidemia) (9) HTN (hypertension) (10) Pulmonary nodules (11) Respiratory failure, [id number] (12) Systolic and diastolic CHF, chronic Surgical Problems: (1) H/O hernia repair (2) s/p laser vaporization of prostate 11/01/11 (3) Transurethral prostatectomy Family History Heart disease Significant PFHx CAD Social History Smoking Status: Former Smoker Smokeless Tobacco Use: No Alcohol Use: none Drug Use: none Marital Status: single Housing Status: lives with family Occupation Status: unemployed Allergies Coded Allergies: Iodine (Verified Allergy, Severe, HIVES, 11/30/17) Heparin (Verified Allergy, Unknown, UNKNOWN, 11/30/17) OK TO GIVE DWELL Sulfa Antibiotics (Verified Allergy, Unknown, ENTERED SULFA- UNKNOWN, ) Home Medications Scheduled Albuterol Hfa (Ventolin Hfa), 2 PUFFS INH QID Amiodarone Hcl (Cordarone), 200 MG PO BID Apixaban (Eliquis), 2.5 MG PO BID Aspirin (Aspirin Ec), 81 MG PO QAM Calcium Acetate (Phoslo 667 Mg), 1 CAP PO TIDM Docusate Sodium (Docusate Sodium), 100 MG PO BID Finasteride (Proscar), 5 MG PO HS Fluticasone Prop/Salmeterol (Advair Diskus 250/50 60 Dose), 1 PUFF INH BID Furosemide (Furosemide), 80 MG PO BID Gabapentin (Neurontin), 300 MG PO HS Home O2 Therapy (Oxygen), 2 LITERS NA DIRECTED Insulin Aspart (Novolog Flexpen), 4 UNITS SQ AC Insulin Glargine (Lantus), 48 UNITS SC BID Licorice (Licorice Root), 450 MG PO DAILY Metoprolol Tartrate (Lopressor) (Lopressor), 100 MG PO BID Midodrine (Midodrine HCl), 2.5 MG PO TID Simvastatin (Simvastatin), 20 MG PO QPM Scheduled PRN Nitroglycerin (Nitrostat), 0.4 MG UT UD PRN for Chest Pain Oxycodone Ir (Roxicodone Ir), 5 MG PO Q4H PRN for Severe Pain Polyethylene Glycol 3350 (Miralax), 17 GM PO DAILY PRN for Constipation Tramadol (Ultram), 50 MG PO Q8H PRN for Pain Current Inpatient Medications Current Inpatient Medications Medications (Trade) Dose Ordered Sig/Ronak Route Start Time Stop Time Status Last Admin Dose Admin Ipratropium [place] (Atrovent 0.02% 0.5MG/2.5ML Neb) 0.5 mg Q4H PRN INH 11/30/17 20:30 12/30/17 20:29 Levalbuterol (Xopenex 1.25MG/ 0.5ML Neb) 1.25 mg Q4H PRN INH 11/30/17 20:30 12/30/17 20:29 Acetaminophen (Tylenol Tab) 650 mg Q4H PRN PO 11/30/17 22:00 12/30/17 21:59 Nitroglycerin (Nitrostat Tab) 0.4 mg UD PRN SL 11/30/17 22:00 12/30/17 21:59 Miscellaneous Information (Icu Protocol For Hyperglycemia) 1 ea PRN PRN N/A 11/30/17 22:00 12/02/17 21:59 Insulin Aspart (novoLOG ASPART) SLIDING SCALE If C... ACHS SC 12/01/17 06:45 12/31/17 06:59 Glucose (Glucose 40% Gel) 15-30 GRAMS 15 GRAMS... UD PRN PO 11/30/17 22:00 12/30/17 21:59 Glucose (Glucose Chew Tab) 4-8 Tablets 4 Tabl... UD PRN PO 11/30/17 22:00 12/30/17 21:59 Dextrose (Dextrose 50% 50ML Syringe) 25-50ML 25ML FOR ... UD PRN IV 11/30/17 22:00 12/30/17 21:59 Glucagon (Glucagon Inj) 1 mg UD PRN SQ 11/30/17 22:00 12/30/17 21:59 Carbohydrates (Carbohydrates For Hypoglycemia) 15-30 GRAMS 15 grams if BSG 54-69... UD PRN PO 11/30/17 22:00 12/30/17 21:59 Pantoprazole Sodium 40 mg/ Syringe 10 ml @ 5 mls/min DAILY IV 12/01/17 09:00 12/31/17 08:59 Miscellaneous Information ([facility]cu Protocol For Hyperglycemia) 1 ea PRN PRN N/A 11/30/17 23:00 12/02/17 22:59 Miscellaneous Information (Consult) 1 ea UD PRN N/A 11/30/17 23:00 12/30/17 22:59 UNV Doxycycline Hyclate 100 mg/ Dextrose 110 ml @ 50 mls/hr BID@0000,1200 IV 12/01/17 00:00 12/08/17 00:00 Aztreonam 1000 mg/ Dextrose 110 ml @ 100 mls/hr TODAY@0000 IV 12/01/17 00:00 12/01/17 01:05 Amiodarone HCl (Cordarone Tab) 200 mg BID PO 12/01/17 09:00 12/31/17 08:59 Apixaban (Eliquis Tab) 2.5 mg BID PO 12/01/17 09:00 12/31/17 08:59 Aspirin (Ecotrin Tab) 81 mg QAM PO 12/01/17 09:00 12/31/17 08:59 Docusate Sodium (coLACE CAP) 100 mg BID PO 12/01/17 09:00 12/31/17 08:59 Finasteride (Proscar Tab) 5 mg HS PO 12/01/17 21:00 12/31/17 20:59 Salmeterol Xinafoate/ Fluticasone (Advair Diskus 250/50 Inh) 1 puff BID INH 12/01/17 09:00 12/31/17 08:59 Gabapentin (Neurontin Cap) 300 mg HS PO 12/01/17 21:00 12/31/17 20:59 Oxycodone HCl (Roxicodone Immediate Rel Tab) 5 mg Q4H PRN PO 11/30/17 23:45 12/14/17 23:44 Simvastatin (Zocor Tab) 20 mg QPM PO 12/01/17 21:00 12/31/17 20:59 Tramadol HCl (Ultram Tab) 50 mg Q8H PRN PO 11/30/17 23:45 12/30/17 23:44 Polyethylene (Miralax Powder Packet) 17 gm DAILY PRN PO 11/30/17 23:45 12/30/17 23:44 Midodrine (Proamatine Tab) 2.5 mg TID@0800,1300,1800 PO 12/01/17 08:00 12/31/17 07:59 Prochlorperazine Edisylate 5 mg/ Syringe 5 ml @ 5 mls/min Q6H PRN IV 11/30/17 23:45 12/30/17 23:44 Review of Systems A complete 10-point Review of Systems was discussed with the patient, with pertinent positives and negatives listed in the History of Present Illness. All remaining Review of Systems questions can be considered negative unless otherwise specified. Physical Exam Date Time Temp Pulse Resp B/P (MAP) Pulse Ox O2 Delivery O2 Flow Rate FiO2 11/30/17 22:45 36.4 86 22 79/40 (53) 91 BiPAP 30 11/30/17 22:32 93 94 35 11/30/17 22:30 36.4 79 21 86/38 (54) 90 BiPAP 30 11/30/17 22:15 36.4 96 24 89/49 (62) 90 BiPAP 30 11/30/17 21:56 36.6 87 22 106/62 95 11/30/17 21:45 106/62 11/30/17 21:41 89 22 95 BiPAP 50 11/30/17 21:30 99/58 11/30/17 21:26 90 26 98 11/30/17 21:15 105/59 11/30/17 21:11 88 22 97 11/30/17 21:00 118/60 11/30/17 20:56 91 17 96 11/30/17 20:51 91/52 96 BiPAP 50 11/30/17 20:50 97 11/30/17 20:35 90 20 94 11/30/17 20:30 97/65 11/30/17 20:24 90 22 95 BiPAP/CPAP 50 11/30/17 20:20 91 24 97 11/30/17 20:15 102/55 11/30/17 20:05 93 23 96 11/30/17 20:00 95/59 11/30/17 19:56 90 94 50 11/30/17 19:50 100 22 94 11/30/17 19:45 80/48 11/30/17 19:43 98 19 96 Oxymask 15.0 11/30/17 19:37 92 11/30/17 19:30 94/53 11/30/17 19:28 91 22 95 11/30/17 19:21 76/50 11/30/17 19:13 90 24 90 5/3/18 19:11 96 Oxymask 11/30/17 19:08 89 23 82/46 94 11/30/17 19:03 93 17 89 Nasal Cannula 6.0 11/30/17 19:00 63/47 11/30/17 19:00 93 Oxymask 15.0 11/30/17 18:58 92 29 89 Nasal Cannula 6.0 11/30/17 18:57 69/47 11/30/17 18:53 103 33 91 11/30/17 18:49 71/48 11/30/17 18:36 36.6 93 22 81/48 81 Nasal Cannula 1.0 VITAL SIGNS - Vital signs and nursing notes were reviewed. GENERAL - 87-year-old male appearing his stated age who is in no acute distress. Sleeping, but awakes and answers questions appropriately. HEAD - NC/AT. EYES - PERRL with EOMI bilaterally. Sclera anicteric. EARS - No deformities of external structures noted on gross examination bilaterally. NOSE - Midline and without cyanosis. No epistaxis or purulent drainage noted. MOUTH/OROPHARYNX - Without perioral cyanosis. NECK - Neck with FROM. Supple to palpation. LUNGS - Chest wall symmetric without accessory muscle use, intercostals retractions, or central cyanosis. Poor inspiratory effort. Distant breath sounds. CARDIAC - RRR with S1/S2. No murmur, rubs, or gallops appreciated. No reproducible tenderness to palpation appreciated over the anterior chest wall. ABDOMEN - Abdominal contour obese and without pulsations or visible masses. BS normoactive all four quadrants. No tenderness, palpable masses, hepatosplenomegaly, or ascites noted. EXTREMITIES - No clubbing or peripheral cyanosis. Mild pretibial edema present. +3/5 radial and dorsalis pedis pulses palpated throughout. +5/5 strength noted in UE/LE bilaterally. NEUROLOGIC - Cranial nerves II through XII grossly intact. Sensory intact to light touch throughout. PSYCH - A&Ox3 and cooperates fully with examiner. Pt is very pleasant and interacts well with examiner. Laboratory Results Last 24 Hours Test 11/30/17 19:00 11/30/17 19:09 11/30/17 19:43 11/30/17 20:34 White Blood Count 11.33 K/uL Red Blood Count 3.47 M/uL Hemoglobin 10.3 g/dL Hematocrit 33.4 % Mean Corpuscular Volume 96.3 fL Mean Corpuscular Hemoglobin 29.7 pg Mean Corpuscular Hemoglobin Concent 30.8 g/dl Platelet Count 136 K/uL Mean Platelet Volume 9.8 fL Neutrophils (%) (Auto) 85.6 % Lymphocytes (%) (Auto) 3.6 % Monocytes (%) (Auto) 8.7 % Eosinophils (%) (Auto) 1.0 % Basophils (%) (Auto) 0.4 % Neutrophils # (Auto) 9.69 K/uL Lymphocytes # (Auto) 0.41 K/uL Monocytes # (Auto) 0.99 K/uL Eosinophils # (Auto) 0.11 K/uL Basophils # (Auto) 0.05 K/uL RDW Standard Deviation 56.9 fL RDW Coefficient of Variation 16.1 % Immature Granulocyte % (Auto) 0.7 % Immature Granulocyte # (Auto) 0.08 K/uL Prothrombin Time 11.5 SECONDS Prothromb Time International Ratio 1.1 Activated Partial Thromboplast Time 31.2 SECONDS Partial Thromboplastin Ratio 1.2 Sodium Level 134 mmol/L Potassium Level 3.7 mmol/L Chloride Level 99 mmol/L Carbon Dioxide Level 29 mmol/L Anion Gap 6.0 mmol/L Blood Urea Nitrogen 32 mg/dl Creatinine 4.73 mg/dl Est Creatinine Clear Calc Drug Dose 16.3 ml/min Estimated GFR () 12.1 Estimated GFR (Non- 10.4 BUN/Creatinine Ratio 6.9 Random Glucose 144 mg/dl Calcium Level 8.4 mg/dl Total Bilirubin 0.4 mg/dl Aspartate Amino Transf (AST/SGOT) 7 U/L Alanine Aminotransferase (ALT/SGPT) 14 U/L Alkaline Phosphatase 66 U/L Total Protein 7.4 gm/dl Albumin 3.0 gm/dl Globulin 4.4 gm/dl Albumin/Globulin Ratio 0.7 Bedside Lactic Acid Venous 1.18 mmol/L Urine Color BROWN Urine Appearance TURBID Urine pH 5.5 Urine Specific [place] 1.025 Urine Protein 2+ Urine Glucose (UA) NEG Urine Ketones TRACE Urine Occult Blood 3+ Urine Nitrite NEG Urine Bilirubin NEG Urine Urobilinogen NEG Urine Leukocyte Esterase NEG Urine RBC >30 /hpf Urine WBC 10-30 /hpf Urine Epithelial Cells 10-20 /lpf Urine Bacteria 1+ Urine Hyaline Casts 10-30 /lpf Arterial Blood pH 7.34 Arterial Blood Partial Pressure CO2 54 mmHg Arterial Blood Partial Pressure O2 104 mm/Hg Arterial Blood HCO3 29 mmol/L Arterial Blood Oxygen Saturation 96.0 % Arterial Blood Base Excess 2.4 mEq/L Arterial Blood Gas Delivery 50% Jay Test POS Magnesium Level 1.9 mg/dl Procalcitonin 1.10 ng/ml Test 11/30/17 22:17 11/30/17 23:25 11/30/17 23:29 Bedside Glucose 119 mg/dl 118 mg/dl Total Creatine Kinase 22 U/L Creatine Kinase MB 2.1 ng/ml Creatine Kinase MB Ratio 9.5 Troponin I < 0.015 ng/ml Diagnostic Results Radiological imaging and reports were reviewed by myself. Radiologist's Interpretation as follows: CHEST ONE VIEW PORTABLE CLINICAL HISTORY: 87 years-old Male presenting with Sepsis. TECHNIQUE: Portable upright AP view of the chest was obtained. COMPARISON: 02/08/2018. FINDINGS: Dual lumen tunneled right internal jugular dialysis catheter terminates in the lower SVC, unchanged. Atherosclerosis of the aortic arch with prominence and tortuosity of the thoracic aorta. Cardiac silhouette moderately enlarged and partially secured due to extensive paramediastinal and bibasilar opacities. Interval increase in central and basilar predominant reticular and dense opacities. Overall heterogeneity of lung markings. Pulmonary vascular prominence suggested. Bronchial wall thickening. Left pleural effusion is difficult to exclude. No large pneumothorax. Degenerative changes of the thoracic spine. Old fracture deformity of the right clavicle. Changes of the left glenohumeral joint. IMPRESSION: 1. Cardiomegaly with findings suggestive of volume overload. 2. Central and bibasilar predominant dense opacities could represent moderate pulmonary edema, aspiration, or multifocal infection. 3. Infiltrates may be superimposed on chronic lung disease. HEAD WITHOUT CONTRAST (CT) CLINICAL HISTORY: 87 years-old Male presenting with dizziness, leg weakness. TECHNIQUE: Multidetector CT imaging of the head was performed without the use of intravenous contrast. IV contrast: None. A dose lowering technique was used consistent with the principles of ALARA (as low as reasonably achievable). COMPARISON: None. CT DOSE (mGy.cm): The estimated cumulative dose is 1474.24 mGy.cm. 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 Proportional ventricular and sulcal prominence, likely age-related parenchymal volume loss. Periventricular and subcortical white matter hypoattenuation, nonspecific but likely indicative of chronic small vessel ischemic change. No mass effect or midline shift. No hemorrhage or acute territorial infarct. No extra-axial fluid collection. Paranasal sinuses and mastoid air cells clear. Calvarium intact. IMPRESSION: 1. Chronic small vessel ischemic change. No acute intracranial abnormality. Assessment & Plan Reason Critically Ill: 87-year-old male with a significant past medical history of coronary artery disease, CHF, paroxysmal atrial fibrillation, COPD, and end- stage renal disease on hemodialysis Monday//Monday presenting with hypotension and increasing lethargy for the past week. Concerns for volume overload versus underlying pneumonia process noted. Requiring positive pressure ventilation and close monitoring from a hemodynamic standpoint. Neuro - * CAM ICU: NEGATIVE * Chronic Pain: Oxy, Ultram PRN * Would avoid if patient has persistent weakness/lethargy. * Lethargy: * CT Head unremarkable. Cardiac - * Hypotension: * Received IVF and Midodrine in the ED. * BPs remain in the 80s-100s * Consider addition of Albumin, however will hold off as BPs maintain in the setting of new infiltrative process vs pulmonary edema. * Already received HD today - may be related to this primarily. * Consider vasoactive drugs to support BP and CO. * Primary service had discussed with cardiology. Dopamine ordered PRN. * If pulmonary edema were to worsen and require addition of loop diuretics in the hypotensive patient, may also consider adding dobutamine for inotropic support w/ known EF of 35-40%. * CAD, NM, PTCA, A. fib, HTN, CHF: * Continue home Rx as BP tolerates. * EKG: A. fib RVR at 101bpm. QTc 518ms. * ECHO (05/25/2017) * -- Conclusions -- * There is mild concentric left ventricular hypertrophy. * The inferior and inferolateral carter are severely hypokinetic to akinetic at the basal, mid and apical levels. The inferoseptal wall is hypokinetic at the basal and mid levels. * Left ventricular systolic function is moderately reduced. * The LV Ejection Fraction = 35-40%. * There is mild tricuspid regurgitation. * Doppler findings do not suggest pulmonary hypertension. * Diastolic dysfunction, Grade II (pseudonormalization pattern). * Aortic valve sclerosis mild, without significant aortic valvular stenosis. * Compared to the prior study dated 11/13/16, there LVEF is unchanged. * Appreciate cardiology consultation. Respiratory - * Acute on Chronic Hypoxemic Respiratory Failure w/ Hypercapnia: * BiPAP for positive pressure support. Wean settings as tolerated. * Trend ABGs * AM CXR. * RLL PNA: * Received Zosyn in the ED. * See ID * Treatment: Nebs. GI - * NPO while on BiPAP * Will add Swallow Eval today per above concerns of Aspiration PNA. RENAL/LYTES - * ESRD on HD Monday//Monday: * No significant electrolyte abnormalities considering. * Trend lytes. * Replace as needed. - * Will await urine culture results given UA results. * ??urine of renal failure vs active infection. ENDO - * DM: * ISS at this point. Will add gtt PRN per protocols. * No h/o Thyroid Dz. HEME - * Anemia of chronic disease/ESRD: * Trend H&H * Monitor closely for any bleeding while on Eliquis. ID - * RIGHT Lower Lobe Pneumonia: * Initially received Zosyn in the ED. * Agree with continuing Zosyn w/ initial ??aspiration event. * Will add Aztreonam for dual pseudomonal coverage in the critically ill COPD pt. * Negative MRSA screening on 06/2017. Will repeat, but patient is not inpatient bound or at higher risk for MRSA. Will hold on Vancomycin at this point. * Will cover Atypicals w/ Doxy. Ideally, could place patient on Levaquin to only require 2 antibiotics but I hesitate with his ESRD and QTc >500. * Will check ProCal and monitor for effective antibiotic treatment. * Lactate not elevated. LINES/IV ACCESS - * PIVs x2 DVT PROPHYLAXIS - * Eliquis per home dosing. I have personally spent 45 minutes of critical care time in the direct management of this patient. This is a life/limb threatening event. This includes time spent evaluating patient, direct bedside care, chart review, placing orders, interpretation of diagnostic studies, discussion with consultants, patient, and family members, as well as other required patient management activities. This time is exclusive of all separately billable procedures, and teaching time and separate from and in addition to any other critical care service time. Thank you for this consultation allow us to be part of this patient's care. Please refer to my attending physician's documentation for any further recommendations. I have personally evaluated and examined this patient. I agree with assessment and plan of Triston Tavares PA-C. Patient was discussed on multidisciplinary rounds Patient will undergo dialysis today, cardiovascular med changes per cardiology conversion to digoxin Able to continue Eliquis Obtain blood cultures from permacat Descalated antibiotics to Rocephin and doxycycline, send Legionella antigen History of prolonged QTC cannot use med quinolone or macrolide at this time I have personally spent 35 minutes of critical care time in the direct management of this patient. This is a life/limb threatening event. This includes time spent evaluating patient, direct bedside care, chart review, placing orders, interpretation of diagnostic studies, discussion with consultants, patient, and/or family members regarding treatment decisions, as well as other required patient management activities. This time is exclusive of all separately billable procedures, and teaching time and separate from and in addition to any other critical care service time.
[2017-12-01] MEDS: DOXYCYCLINE IV 100 MG in DEXTROSE 5% 100ML 100 ML IV SCH ×3 (00:39→23:22)
[2017-12-01] MEDS ORDERED: AZTREONAM CONSULT ACTIVE PRN (00:45)
[2017-12-01] MEDS: LEVALBUTEROL 1.25MG/0.5ML NEB INH SCH ×4 (02:17→19:48)
[2017-12-01] MEDS: IPRATROPIUM BROMIDE NEB SOLN 0.02% 2.5 ML VIAL INH SCH ×4 (02:17→19:48)
[2017-12-01] MEDS ORDERED: LEVALBUTEROL/IPRATROPIUM NEB INH SCH (03:00)
[2017-12-01 04:21] LABS: BASO % 0.5 %; BASO ABS # 0.04 K/uL (0-0.2); EOS % 1.9 %; EOS ABS # 0.15 K/uL (0-0.5); HEMATOCRIT 32.9 % (42-52); HEMOGLOBIN 9.9 g/dL (14.0-18.0); IG# 0.06 K/uL (0.00-0.02); LYMPH % 7.4 %; LYMPH ABS # 0.59 K/uL (1.2-3.4); MEAN CELL VOLUME 98.2 fL (80-100); MEAN CORPUSCULAR HEMOGLOBIN 29.6 pg (25-34); MEAN CORPUSCULAR HGB CONC 30.1 g/dl (32-36); MONO % 10.7 %; MONO ABS # 0.85 K/uL (0.11-0.59); NEUT % 78.7 %; NEUT ABS # 6.26 K/uL (1.4-6.5); NUCLEATED RED BLOOD CELL ABS 0.02 K/uL (0-0); PLATELET COUNT 125 K/uL (130-400); RED CELL DISTRIBUTION WIDTH CV 16.3 % (11.5-14.5); RED CELL DISTRIBUTION WIDTH SD 58.1 fL (36.4-46.3); WHITE BLOOD COUNT 7.95 K/uL (4.8-10.8)
[2017-12-01 04:37] LABS: INR 1.1 (0.9-1.1); PTT PATIENT 31.3 SECONDS (21.0-31.0)
[2017-12-01 04:53] LABS: BLOOD UREA NITROGEN 38 mg/dl (7-18); CALCIUM 8.1 mg/dl (8.5-10.1); CARBON DIOXIDE 31 mmol/L (21-32); CREATININE 5.12 mg/dl (0.60-1.40); GLUCOSE 95 mg/dl (70-99); PHOSPHORUS 6.3 mg/dl (2.5-4.9); POTASSIUM 3.9 mmol/L (3.5-5.1); SODIUM 137 mmol/L (136-145)
[2017-12-01 06:18] LABS: HEMOGLOBIN A1C 5.7 % (4.5-5.6)
[2017-12-01] MEDS: INSULIN ASPART 100 UNITS/ML 3 ML PEN SC SCH ×4 (06:45→20:25)
--- NOTE | 2017-12-01 07:11 | DIAGNOSTIC IMAGING REPORT ---
CHEST ONE VIEW PORTABLE CLINICAL HISTORY: pna/chf dyspnea COMPARISON STUDY: 11/30/2017 FINDINGS: PermCath in superior vena cava. Moderate cardiomegaly. Persistent findings of congestive failure. Old fracture right clavicle. Subtle increase in prominence of the pulmonary vasculature. IMPRESSION: Congestive failure is stable to slightly increased in prominence compared to the prior exam. The above report was generated using voice recognition software. It may contain grammatical, syntax or spelling errors. Electronically signed by: Braulio Molina M.D. 12/01/2017 7:09 AM Dictated Date/Time: 12/01/2017 7:08 AM
[2017-12-01] MEDS ORDERED: HYDROCORTISONE SOD SUCCINATE 100 MG/2 ML VIAL IM ONE (07:30)
[2017-12-01] MEDS ORDERED: PIPERACILL/TAZOBAC IV 4.5 GM in NSS 100 ML IV SCH (08:00)
[2017-12-01] MEDS ORDERED: AZTREONAM IV 500 MG in DEXTROSE 5% 50ML 50 ML IV SCH (08:00)
[2017-12-01] MEDS: MIDODRINE 2.5 MG TAB PO SCH ×3 (08:33→17:41)
[2017-12-01] MEDS: ASPIRIN 81 MG ECTAB PO SCH (08:33)
[2017-12-01] MEDS: APIXABAN 2.5 MG TAB PO SCH ×2 (08:33→20:23)
[2017-12-01] MEDS: FLUTICASONE/SALMETEROL 250/50 (ADVAIR) 14 PUFF/1 INHALER INH SCH ×2 (08:33→20:21)
[2017-12-01] MEDS ORDERED: AMIODARONE 200 MG TAB PO SCH (09:00)
[2017-12-01] MEDS ORDERED: PANTOprazole INJ 40 MG in SYRINGE 0 ML IV SCH (09:00)
[2017-12-01] MEDS: DOCUSATE SODIUM 100 MG CAP PO SCH ×2 (09:00→20:21)
--- NOTE | 2017-12-01 10:29 | Nephrology Consultation ---
Nephrology Consultation Date of Consultation: December 01, 2017. Attending Physician: Dr Page Requesting Physician: Dr Ochoa Reason for Consultation: ESRD on dialysis History of Present Illness 87 year old male admitted overnight to ICU after presenting w/ acutely worsened chronic hypotension and worsening lethargy for past several days. He has been on bipap since arrival to the ER, though the settings are coming down somewhat. 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 He has a maturing AVF placed recently at [facility]. He is midodrine dependent as an outpatient. He had 500 mL NS in ER and zosyn. Blood cultures are in process; XR concerning for RLL infiltrate; urine specimen also possibly c/w infection. Lactic acid wnl since arrival. He denies active pain on evaluation today but still quite tired. States he feels a bit better than ON; still sob. He voids normally but is since arrival anuric. no N or active chest pain. Cardiology is evaluating the patient and plans to wean beta kelly, reinitiate digoxin. He had routine HD as outpt yesterday. 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 Family History Heart disease Social History Smoking Status: Former Smoker Drug Use: none Marital Status: single Housing Status: lives with family Occupation Status: unemployed Allergies Coded Allergies: Iodine (Verified Allergy, Severe, HIVES, 11/30/17) Heparin (Verified Allergy, Unknown, UNKNOWN, 11/30/17) OK TO GIVE DWELL Sulfa Antibiotics (Verified Allergy, Unknown, ENTERED SULFA- UNKNOWN, ) Medications Current Inpatient Medications Medications (Trade) Dose Ordered Sig/Ronak Route Start Time Stop Time Status Last Admin Dose Admin Ipratropium Paulina (Atrovent 0.02% 0.5MG/2.5ML Neb) 0.5 mg Q4H PRN INH 11/30/17 20:30 12/30/17 20:29 Levalbuterol (Xopenex 1.25MG/ 0.5ML Neb) 1.25 mg Q4H PRN INH 11/30/17 20:30 12/30/17 20:29 Acetaminophen (Tylenol Tab) 650 mg Q4H PRN PO 11/30/17 22:00 12/30/17 21:59 Nitroglycerin (Nitrostat Tab) 0.4 mg UD PRN SL 11/30/17 22:00 12/30/17 21:59 Miscellaneous Information (Icu Protocol For Hyperglycemia) 1 ea PRN PRN N/A 11/30/17 22:00 12/02/17 21:59 Insulin Aspart (novoLOG ASPART) SLIDING SCALE If C... ACHS SC 12/01/17 06:45 12/31/17 06:59 Glucose (Glucose 40% Gel) 15-30 GRAMS 15 GRAMS... UD PRN PO 11/30/17 22:00 12/30/17 21:59 Glucose (Glucose Chew Tab) 4-8 Tablets 4 Tabl... UD PRN PO 11/30/17 22:00 12/30/17 21:59 Dextrose (Dextrose 50% 50ML Syringe) 25-50ML 25ML FOR ... UD PRN IV 11/30/17 22:00 12/30/17 21:59 Glucagon (Glucagon Inj) 1 mg UD PRN SQ 11/30/17 22:00 12/30/17 21:59 Carbohydrates (Carbohydrates For Hypoglycemia) 15-30 GRAMS 15 grams if BSG 54-69... UD PRN PO 11/30/17 22:00 12/30/17 21:59 Pantoprazole Sodium 40 mg/ Syringe 10 ml @ 5 mls/min DAILY IV 12/01/17 09:00 12/31/17 08:59 12/01/17 08:33 5 MLS/MIN Miscellaneous Information (Icu Protocol For Hyperglycemia) 1 ea PRN PRN N/A 11/30/17 23:00 12/02/17 22:59 Miscellaneous Information (Consult) 1 ea UD PRN N/A 11/30/17 23:00 6/2/18 22:59 Doxycycline Hyclate 100 mg/ Dextrose 110 ml @ 50 mls/hr BID@0000,1200 IV 12/01/17 00:00 12/08/17 00:00 12/01/17 00:39 50 MLS/HR Amiodarone HCl (Cordarone Tab) 200 mg BID PO 12/01/17 09:00 12/31/17 08:59 Apixaban (Eliquis Tab) 2.5 mg BID PO 12/01/17 09:00 12/31/17 08:59 12/01/17 08:33 2.5 MG Aspirin (Ecotrin Tab) 81 mg QAM PO 12/01/17 09:00 12/31/17 08:59 12/01/17 08:33 81 MG Docusate Sodium (coLACE CAP) 100 mg BID PO 12/01/17 09:00 12/31/17 08:59 Finasteride (Proscar Tab) 5 mg HS PO 12/01/17 21:00 12/31/17 20:59 Salmeterol Xinafoate/ Fluticasone (Advair Diskus 250/50 Inh) 1 puff BID INH 12/01/17 09:00 12/31/17 08:59 12/01/17 08:33 1 PUFF Gabapentin (Neurontin Cap) 300 mg HS PO 12/01/17 21:00 12/31/17 20:59 Oxycodone HCl (Roxicodone Immediate Rel Tab) 5 mg Q4H PRN PO 11/30/17 23:45 12/14/17 23:44 Simvastatin (Zocor Tab) 20 mg QPM PO 12/01/17 21:00 12/31/17 20:59 Tramadol HCl (Ultram Tab) 50 mg Q8H PRN PO 11/30/17 23:45 12/30/17 23:44 Polyethylene (Miralax Powder Packet) 17 gm DAILY PRN PO 11/30/17 23:45 12/30/17 23:44 Midodrine (Proamatine Tab) 2.5 mg TID@0800,1300,1800 PO 12/01/17 08:00 12/31/17 07:59 12/01/17 08:33 2.5 MG Prochlorperazine Edisylate 5 mg/ Syringe 5 ml @ 5 mls/min Q6H PRN IV 11/30/17 23:45 12/30/17 23:44 Piperacillin Sod/ Tazobactam Sod 4.5 gm/Sodium Chloride 120 ml @ 30 mls/hr Q12H IV 12/01/17 08:00 12/08/17 07:59 12/01/17 08:33 30 MLS/HR Ipratropium Paulina (Atrovent 0.02% 0.5MG/2.5ML Neb) 0.5 mg Q6R INH 12/01/17 03:00 12/31/17 02:59 12/01/17 07:02 0.5 MG Levalbuterol (Xopenex 1.25MG/ 0.5ML Neb) 1.25 mg Q6R INH 12/01/17 03:00 12/31/17 02:59 12/01/17 07:02 1.25 MG Home Meds and Scripts Medications Dose Route/Sig Max Daily Dose Days Date Category Ultram (Tramadol HCl) 50 Mg Tab 50 Mg PO Q8H PRN 11/30/17 Reported Oxygen Gas 2 Liters NA DIRECTED 11/30/17 Reported Roxicodone Ir (Oxycodone HCl) 5 Mg Tab 5 Mg PO Q4H PRN 11/30/17 Reported Licorice Root (Licorice) 1 Pow Pow 450 Mg PO DAILY 11/30/17 Reported Ventolin Hfa (Albuterol) 200 Puffs/25479 Mcg Aers 2 Puffs INH QID 11/30/17 Reported Miralax (Polyethylene Glycol 3350) 1 Pow Pow 17 Gm PO DAILY PRN 11/30/17 Reported Midodrine HCl (Midodrine) 2.5 Mg Tab 2.5 Mg PO TID 11/30/17 Reported Lopressor (Metoprolol Tartrate) 100 Mg Tab 100 Mg PO BID 11/30/17 Reported Lantus (Insulin Glargine) 100 Unit/Ml Inj 48 Units SC BID 11/30/17 Reported Docusate Sodium 100 Mg Cap 100 Mg PO BID 7 11/30/17 Reported Phoslo 667 Mg (Calcium Acetate) 667 Mg Cap 1 Cap PO TIDM 30 11/30/17 Reported Eliquis (Apixaban) 2.5 Mg Tab 2.5 Mg PO BID 11/30/17 Reported Cordarone (Amiodarone Hcl) 200 Mg Tab 200 Mg PO BID 11/30/17 Reported Simvastatin 20 Mg Tab 20 Mg PO QPM 11/30/17 Reported Novolog Flexpen (Insulin Aspart) 100 Units/Ml Inj 4 Units SQ AC 08/11/17 Reported Neurontin (Gabapentin) 300 Mg Cap 300 Mg PO HS 05/24/17 Reported Advair Diskus 250/50 60 Dose (Fluticasone Prop/Salmeterol) 1 Ea Aerp 1 Puff INH BID 05/24/17 Reported Proscar (Finasteride) 5 Mg Tab 5 Mg PO HS 12/18/15 Reported Aspirin Ec (Aspirin) 81 Mg Tab 81 Mg PO QAM 07/24/14 Reported Furosemide 40 Mg Tab 80 Mg PO BID 07/24/14 Reported Nitrostat (Nitroglycerin) 0.4 Mg Tab 0.4 Mg UT UD PRN 08/16/10 Reported Review of Systems Constitutional: + weakness, + fatigue Eyes: No worsening of vision ENT: No hearing loss Respiratory: + shortness of breath, + dyspnea at rest Cardiac: No chest pain, No edema Abdomen: No pain, No nausea, No diarrhea Musculoskeletal: No joint pain, No muscle pain Male : + see HPI Neuro: + weakness, No memory loss Psych: No depression symptoms Heme: No abnormal bleeding/bruising Endo: + fatigue Skin: No rash Physical Exam Date Time Temp Pulse Resp B/P (MAP) Pulse Ox O2 Delivery O2 Flow Rate FiO2 12/01/17 07:40 BiPAP 15.0 35 12/01/17 07:07 76 92 35 12/01/17 07:06 77 28 92 BiPAP/CPAP 35 12/01/17 06:00 80 26 88/45 (59) 94 BiPAP 35 12/01/17 05:47 77 94 35 12/01/17 04:01 88 95 35 12/01/17 04:00 36.8 75 21 91/51 (64) 91 BiPAP 35 12/01/17 04:00 91 BiPAP 35 12/01/17 02:18 80 94 35 12/01/17 02:17 80 22 95 BiPAP/CPAP 35 12/01/17 01:00 75 18 95/51 (66) 95 BiPAP 30 12/01/17 00:45 95 15 103/45 (64) 94 BiPAP 30 /18 00:30 84 23 90/51 (64) 93 BiPAP 30 /18 00:15 81 16 91/54 (66) 97 BiPAP 30 /18 00:01 36.3 90 14 89/43 (58) 93 BiPAP 30 /18 23:59 94 BiPAP 35 5/3/18 22:45 36.4 86 22 79/40 (53) 91 BiPAP 30 18 22:32 93 94 35 /18 22:30 36.4 79 21 86/38 (54) 90 BiPAP 30 /18 22:15 36.4 96 24 89/49 (62) 90 BiPAP 30 18 21:56 36.6 87 22 106/62 95 18 21:45 106/62 /18 21:41 89 22 95 BiPAP 50 18 21:30 99/58 11/30/17 21:26 90 26 98 18 21:15 105/59 18 21:11 88 22 97 /18 21:00 118/60 18 20:56 91 17 96 //18 20:51 91/52 96 BiPAP 50 18 20:50 97 11/30/17 20:35 90 20 94 /18 20:30 97/65 /18 20:24 90 22 95 BiPAP/CPAP 50 /18 20:20 91 24 97 18 20:15 102/55 18 20:05 93 23 96 /18 20:00 95/59 /18 19:56 90 94 50 18 19:50 100 22 94 //18 19:45 80/48 18 19:43 98 19 96 Oxymask 15.0 11/30/17 19:37 92 /18 19:30 94/53 18 19:28 91 22 95 //18 19:21 76/50 /18 19:13 90 24 90 18 19:11 96 Oxymask 11/30/17 19:08 89 23 82/46 94 5/3/18 19:03 93 17 89 Nasal Cannula 6.0 11/30/17 19:00 63/47 11/30/17 19:00 93 Oxymask 15.0 11/30/17 18:58 92 29 89 Nasal Cannula 6.0 11/30/17 18:57 69/47 11/30/17 18:53 103 33 91 11/30/17 18:49 71/48 11/30/17 18:36 36.6 93 22 81/48 81 Nasal Cannula 1.0 General Appearance: WD/WN, no apparent distress (on bipap, resting but wakens, interacts w/in limits of bipap if asked) Eyes: EOMI ENT: hearing grossly normal Neck: supple Respiratory/Chest: no respiratory distress, + decreased breath sounds Cardiovascular: regular rate, rhythm, no edema Abdomen: normal bowel sounds, non tender, soft Extremities: no pedal edema, + pertinent finding (avf LUE + t/b) Neurologic/Psych: alert, normal mood/affect, oriented x 3 Skin: no jaundice, warm/dry, no rash Diagnostics Last 24 Hours Test 11/30/17 19:00 11/30/17 19:09 11/30/17 19:43 11/30/17 20:34 White Blood Count 11.33 K/uL Red Blood Count 3.47 M/uL Hemoglobin 10.3 g/dL Hematocrit 33.4 % Mean Corpuscular Volume 96.3 fL Mean Corpuscular Hemoglobin 29.7 pg Mean Corpuscular Hemoglobin Concent 30.8 g/dl Platelet Count 136 K/uL Mean Platelet Volume 9.8 fL Neutrophils (%) (Auto) 85.6 % Lymphocytes (%) (Auto) 3.6 % Monocytes (%) (Auto) 8.7 % Eosinophils (%) (Auto) 1.0 % Basophils (%) (Auto) 0.4 % Neutrophils # (Auto) 9.69 K/uL Lymphocytes # (Auto) 0.41 K/uL Monocytes # (Auto) 0.99 K/uL Eosinophils # (Auto) 0.11 K/uL Basophils # (Auto) 0.05 K/uL RDW Standard Deviation 56.9 fL RDW Coefficient of Variation 16.1 % Immature Granulocyte % (Auto) 0.7 % Immature Granulocyte # (Auto) 0.08 K/uL Prothrombin Time 11.5 SECONDS Prothromb Time International Ratio 1.1 Activated Partial Thromboplast Time 31.2 SECONDS Partial Thromboplastin Ratio 1.2 Sodium Level 134 mmol/L Potassium Level 3.7 mmol/L Chloride Level 99 mmol/L Carbon Dioxide Level 29 mmol/L Anion Gap 6.0 mmol/L Blood Urea Nitrogen 32 mg/dl Creatinine 4.73 mg/dl Est Creatinine Clear Calc Drug Dose 16.3 ml/min Estimated GFR () 12.1 Estimated GFR (Non- 10.4 BUN/Creatinine Ratio 6.9 Random Glucose 144 mg/dl Estimated Average Glucose 117 mg/dl Hemoglobin A1c 5.7 % Calcium Level 8.4 mg/dl Total Bilirubin 0.4 mg/dl Aspartate Amino Transf (AST/SGOT) 7 U/L Alanine Aminotransferase (ALT/SGPT) 14 U/L Alkaline Phosphatase 66 U/L Total Protein 7.4 gm/dl Albumin 3.0 gm/dl Globulin 4.4 gm/dl Albumin/Globulin Ratio 0.7 Bedside Lactic Acid Venous 1.18 mmol/L Urine Color BROWN Urine Appearance TURBID Urine pH 5.5 Urine Specific [place] 1.025 Urine Protein 2+ Urine Glucose (UA) NEG Urine Ketones TRACE Urine Occult Blood 3+ Urine Nitrite NEG Urine Bilirubin NEG Urine Urobilinogen NEG Urine Leukocyte Esterase NEG Urine RBC >30 /hpf Urine WBC 10-30 /hpf Urine Epithelial Cells 10-20 /lpf Urine Bacteria 1+ Urine Hyaline Casts 10-30 /lpf Arterial Blood pH 7.34 Arterial Blood Partial Pressure CO2 54 mmHg Arterial Blood Partial Pressure O2 104 mm/Hg Arterial Blood HCO3 29 mmol/L Arterial Blood Oxygen Saturation 96.0 % Arterial Blood Base Excess 2.4 mEq/L Arterial Blood Gas Delivery 50% Jay Test POS Magnesium Level 1.9 mg/dl Procalcitonin 1.10 ng/ml Test 11/30/17 22:17 11/30/17 23:25 11/30/17 23:29 12/01/17 00:13 Bedside Glucose 119 mg/dl 118 mg/dl Total Creatine Kinase 22 U/L Creatine Kinase MB 2.1 ng/ml Creatine Kinase MB Ratio 9.5 Troponin I < 0.015 ng/ml Random Cortisol 9.71 mcg/dl Blood Gas Sample Site R Radial Bedside Blood Gas pH (LAB) 7.30 Bedside Blood Gas pCO2 (LAB) 63 mmHg Bedside Blood Gas pO2 (LAB) 74 mmHg Bedside Blood Gas HCO3 (LAB) 31 meq/L Bedside Blood Gas Total CO2 33 mEq/l Bedside Blood Gas Base Excess (LAB) 4.0 meq/L Bedside Blood Gas O2 Saturation 93.0 % Jay Test Pass Oxygen Delivery Device BIPAP Bedside Oxygen Rate (breaths/min) 16 Bedside FiO2 35 % Blood Gas IPAP 10 Test 12/01/17 04:00 12/01/17 05:16 12/01/17 05:58 White Blood Count 7.95 K/uL Red Blood Count 3.35 M/uL Hemoglobin 9.9 g/dL Hematocrit 32.9 % Mean Corpuscular Volume 98.2 fL Mean Corpuscular Hemoglobin 29.6 pg Mean Corpuscular Hemoglobin Concent 30.1 g/dl Platelet Count 125 K/uL Mean Platelet Volume 10.0 fL Neutrophils (%) (Auto) 78.7 % Lymphocytes (%) (Auto) 7.4 % Monocytes (%) (Auto) 10.7 % Eosinophils (%) (Auto) 1.9 % Basophils (%) (Auto) 0.5 % Neutrophils # (Auto) 6.26 K/uL Lymphocytes # (Auto) 0.59 K/uL Monocytes # (Auto) 0.85 K/uL Eosinophils # (Auto) 0.15 K/uL Basophils # (Auto) 0.04 K/uL RDW Standard Deviation 58.1 fL RDW Coefficient of Variation 16.3 % Immature Granulocyte % (Auto) 0.8 % Immature Granulocyte # (Auto) 0.06 K/uL Nucleated RBC Absolute Count (auto) 0.02 K/uL Nucleated Red Blood Cells % 0.3 % Prothrombin Time 11.7 SECONDS Prothromb Time International Ratio 1.1 Activated Partial Thromboplast Time 31.3 SECONDS Partial Thromboplastin Ratio 1.2 Sodium Level 137 mmol/L Potassium Level 3.9 mmol/L Chloride Level 103 mmol/L Carbon Dioxide Level 31 mmol/L Anion Gap 3.0 mmol/L Blood Urea Nitrogen 38 mg/dl Creatinine 5.12 mg/dl Est Creatinine Clear Calc Drug Dose 15.0 ml/min Estimated GFR () 11.0 Estimated GFR (Non- 9.5 BUN/Creatinine Ratio 7.4 Random Glucose 95 mg/dl Calcium Level 8.1 mg/dl Phosphorus Level 6.3 mg/dl Magnesium Level 2.3 mg/dl Troponin I < 0.015 ng/ml Blood Gas Sample Site R Radial Bedside Blood Gas pH (LAB) 7.28 Bedside Blood Gas pCO2 (LAB) 67 mmHg Bedside Blood Gas pO2 (LAB) 66 mmHg Bedside Blood Gas HCO3 (LAB) 32 meq/L Bedside Blood Gas Total CO2 34 mEq/l Bedside Blood Gas Base Excess (LAB) 5.0 meq/L Bedside Blood Gas O2 Saturation 89.0 % Jay Test Pass Oxygen Delivery Device BIPAP Bedside Oxygen Rate (breaths/min) 24 Bedside FiO2 35 % Blood Gas IPAP 12 Lactic Acid Level 1.0 mmol/L Diagnostic Radiology: CXR this am versus last evening: Congestive failure is stable to slightly increased in prominence compared to the prior exam. Assessment & Plan 87 year old male admitted 11/30 to ICU after presenting w/ acutely worsened chronic hypotension and volume overload w/ concern evaluation for infectious processes also underway. 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 He is midodrine dependent as an outpatient. 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 Appreciate consult; will follow with you. Care coordinated w/ Kimberly Bethea.
--- NOTE | 2017-12-01 10:44 | HISTORY & PHYSICAL EXAMINATION ---
DATE OF ADMISSION: 11/30/2017 PRIMARY CARE PHYSICIAN: Dr. Dickey. CHIEF COMPLAINT: Hypotension, dizziness, short of breath. HISTORY OF PRESENT ILLNESS: History obtained from the patient and records. Medical history significant for chronic systolic heart failure secondary to ischemic cardiomyopathy, EF of 35-40% from a 2D echo 04/2017, CAD status post stenting. chronic respiratory failure secondary to COPD, on home O2, AFib, on apixaban, DM2, insulin requiring, end-stage renal disease, on hemodialysis, hypotension on midodrine therapy, past tobacco abuse. Chronic anemia (baseline hemoglobin of 8-9) Recent confinement last 07/2017 for CKD stage V with volume overload. Patient discharged to the [facility] for skilled care for a week subsequently went home to live by himself. Patient has been feeling off the last few days, transient bloody stools, no abdominal pain. He was at dialysis in the morning. Blood pressure noted to be low. Patient noted worsening bilateral LE weakness, shortness of breath, achy headache.. Patient denies chest pain, cough symptoms. Brought to the Emergency Room. SBP noted to be 60s-80s in the ER. IVF bolus given Noted to be in respiratory distress and hypoxemic. Placed on the BiPAP Given Zosyn for possible pneumonia. Medical history as above 2D echo in 2016 showed EF of 35-40%, LVH. mild TR, mild concentric LVH, hypokinetic inferolateral carter, inferoseptal wall , basal and mid levels, diastolic dysfunction SURGERIES: Vascular procedures, hernia repair, prostate surgery. HOME MEDICATIONS: Include Ventolin, amiodarone, Eliquis, aspirin, PhosLo, Advair Diskus, Proscar, Neurontin, home O2, NovoLog, Lantus, licorice, midodrine, Nitrostat IR, MiraLax, simvastatin, Ultram. Metoprolol ALLERGIES: ALLERGIC TO HEPARIN, IODINE, SULFA. FAMILY HISTORY: Heart disease. PERSONAL AND SOCIAL HISTORY: Past tobacco abuse. No chronic intake of alcohol abuse. 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 REVIEW OF SYSTEMS: As per HPI, all 10 systems reviewed, all other ROS negative. PHYSICAL EXAMINATION: VITAL SIGNS: Blood pressure was noted to be 81/48, pulse rate noted to be 92, RR 34, temperature 36.8, sats 90 on 30% BiPAP. GENERAL: Noted to be in minimal respiratory distress, obese. Chronically ill. SKIN: Pallor, warm. HEENT: Pale palpebral conjunctivae. No ptosis. Dry mucosa. BiPAP in place. NECK: Short neck. Supple. CHEST: Decreased breath sounds. No tenderness. HEART: irreg, Palpable LE pulses. ABDOMEN: Some distention, nontender. EXTREMITIES: LE edema, no tenderness. No other gross deformities. NE : Coherent, no gross focality. LABS: Hemoglobin was noted to be 10.8, white blood cell 11.3, platelets 136. Sodium noted to be 134, potassium 2.7, chloride 99, CO2 39, BUN 30, creatinine 5, glucose of 144. lactic acid is normal. Chest x-ray showed congestion, cardiomegaly, bibasilar infiltrates, chronic lung disease. CT of the head, chronic small vessel ischemic change. EKG as per my interpretation, rate 100, AFib, PVCs, some T-wave flattening in the lateral leads. ASSESSMENT: 1. Acute on chronic hypoxemic progressive failure secondary to decompensated heart failure. Chronic systolic heart failure secondary to ischemic cardiomyopathy EF of 35-40 % (TTE 2017) Cardiorenal syndrome. ESRD on HD 2. Hypotension hx chronic midodrine Rx. Minimal BP improvement with IVF bolus given at the ER. possible cardiogenic shock. ro sepsis/occult infection 3. Coronary artery disease status post stenting. 4. Atrial fibrillation, rate controlled, on apixaban. 5. DM2, insulin requiring, well controlled as of recent inpatient HgA1c of 6.9 last 07/2017. 6. Past tobacco abuse 7. Hx of heparin-induced thrombocytopenia. 8. Chronic anemia secondary to ESRD, hemoglobin better than baseline. PLAN: ICU. Continue NIPPV Baseline ABG Dopamine for possible cardiogenic shock. Hold home antihypertensives for now. Dialysis once BP improved Cardio consult. RE decompensated heart failure. Nephrology RE dialysis management. Cultures. Check procalcitonin. Hold off on antibiotics for now. ISS, BG goal 140, 180. Hold basal insulin while the patient n.p.o. PT OT eval DVT prophylaxis, Apixaban. Full code. Total critical care time was 45 minutes. Patient's cousin/POA requesting for updates from providers, Page Porfirio John ( contact number [phone]). [facility]
[2017-12-01] MEDS ORDERED: EPOETIN ALFA 10,000 UNITS/ML VIAL IV. SCH (11:00)
[2017-12-01] MEDS ORDERED: DIGOXIN 0.25 MG TAB PO ONE (11:00)
[2017-12-01] MEDS: ALBUMIN HUMAN 25% 12.5 GM/50 ML VIAL IV SCH ×2 (11:20→12:32)
[2017-12-01] MEDS ORDERED: DOXYCYCLINE HYCLATE 100 MG in DEXTROSE 5% 100ML IV SCH (12:30)
--- NOTE | 2017-12-01 13:30 | CARDIOLOGY CONSULTATION ---
DATE OF CONSULTATION: 12/01/2017 Cardiology consultation. REFERRING DIAGNOSES: Heart failure, hypertension, on dialysis, persistent atrial fibrillation. HISTORY OF PRESENT ILLNESS: Patient is a complex 87-year-old male known to us from prior hospitalizations. His past medical history is notable for ischemic heart disease and an ischemic cardiomyopathy with moderately severe LV dysfunction, past history of compensated congestive heart failure, chronic atrial fibrillation with difficult to control ventricular response rates, chronic renal insufficiency with recent initiation of dialysis in the last 5 months. Other issues include chronic obstructive lung disease and type 2 diabetes mellitus. Patient was referred this admission noting having difficulties with shortness of breath and hypotension while on dialysis. He is referred to the ER for further evaluation with patient hypotensive on initial presentation, systolic blood pressures in the 80s. Of note, he has had difficulties with hypotension and has been on midodrine due to orthostatic issues. He is on a fairly complex antiarrhythmic regimen for rate control including amiodarone 200 mg twice per day, metoprolol tartrate 100 mg twice per day. He is also on anticoagulation with apixaban. Patient is examined now. He is on BiPAP for respiratory issues, though is talkative and able to communicate well. Notes no chest pains, dizziness or lightheadedness. Does feel really "washed out and rung out" after each dialysis and is limited time on dialysis to 3 hours due to complaints. He notes no acute neurologic complaints though his presenting difficulty was marked difficulty with weakness in his legs and standing "too weak to walk" per his own description. He notes no cough, hoarseness, wheeze or hemoptysis. Notes no melena or hematochezia, dysuria or hematuria. Has had some GI upset and complaints, possible blood in the stools at times. ALLERGIES: HEPARIN, IODINE AND SULFA. MEDICATIONS: Prior to hospitalization were albuterol inhaler 2 puffs q.i.d., amiodarone 200 mg b.i.d., apixaban 2.5 mg b.i.d., aspirin 81 mg per day, PhosLo 667 one capsule t.i.d., docusate 100 mg b.i.d., Proscar 5 mg p.o. day, furosemide 8 mg b.i.d., gabapentin 300 mg at bedtime, oxygen 2 liters nasal cannula, insulin, metoprolol 100 mg b.i.d., midodrine 2.5 t.i.d., oxycodone, polyethylene glycol for constipation, simvastatin 20 mg per day and tramadol. PAST SURGICAL HISTORY: Notable for multiple coronary interventions, recent arterial fistula, past lithotripsy, ERCP, and inguinal hernia repair. FAMILY HISTORY: Notable for heart disease and renal failure. 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 He is currently a nonsmoker, nondrinker. PHYSICAL EXAMINATION: GENERAL: Patient is an age-appropriate male in no acute distress although wearing BiPAP while doing so. VITAL SIGNS: Heart rate is 83, blood pressure 101/56 with blood pressures in the 80s overnight. HEENT: Normocephalic, atraumatic. NECK: Thick. There is minimal jugular venous distention. LUNGS: Revealed diminished breath sounds in all lung parks with coarse crackles basilar. CARDIOVASCULAR: Irregularly irregular with a grade 2/6 systolic murmur. ABDOMEN: Obese, soft. EXTREMITIES: Reveal wall 1-2+ lower extremity edema. NEUROLOGIC: Patient is conversant. He is moving legs on request. Notes he has not been "out of bed" due to hospitalization. DATA: EKG reveals atrial fibrillation with elevated ventricular response rate and nonspecific interventricular conduction delay, QT corrected of 518. IMPRESSION: Complex 87-year-old male with history of ischemic heart disease, ischemic cardiomyopathy and persistent atrial fibrillation on multiple drug regimen, now on dialysis, end-stage renal disease with poor tolerance to dialysis recently due to hypotension and weakness. Infectious evaluation is ongoing, but no acute signs of infectious decline currently. RECOMMENDATIONS: Will attempt to optimize medical therapies to allow higher blood pressure. We will hold metoprolol today as already done. We will reduce amiodarone to 200 mg once per day, add digoxin initially with 0.25 mg p.o. this morning, then 0.125 mg Monday, Monday, Monday. He may require an additional dose for full loading. We will plan on resuming metoprolol if blood pressure allows at lower dosing as clinical course progresses. Apixaban will be reassessed regarding dosing for anticoagulation.
--- NOTE | 2017-12-01 13:57 | Clinical Documentation Query ---
CLINICAL DOCUMENTATION QUERY Dr. BURTON, In your clinical opinion is this patient being managed for: (x ) Acute on chronic systolic CHF ( ) Not Agree ( ) Other explanation of clinical findings (Please Explain. If no explanation given, this would be considered a no response.) ( ) Unable to determine ( ) Need to Discuss (Please call CDS via extension or qliq. If no interaction occurs this is considered a no response.) The medical record reflects the following clinical findings, treatment, and risk factors. Clinical Indicators:87 yo male presenting with generalized weakness x 1 wk. CXR showed Cardiomegaly with findings suggestive of volume overload. Repeat CXR showed : Congestive failure is stable to slightly increased in prominence compared to the prior exam. ECHO from Apr 2017 EF 35-40% with grade II diastolic dysfunction Treatment: ICU monitoring, O2 support/BIPAP, cardiology consult, cordarone, digoxin, chronic dialysis Risk Factors: age, ESRD, chronic combined CHF, cardiorenal syndrome, DM, COPD Please clarify and document your clinical opinion in the progress notes and discharge summary. Terms such as "probable", "suspected", "likely", "questionable", "possible", or "still to be ruled out" are acceptable. IF IN AGREEMENT, YOU MUST DOCUMENT ABOVE DIAGNOSTIC STATEMENT IN DAILY PROGRESS NOTES AND DISCHARGE SUMMARY. This document is not part of the patient's record. Thank You, Gabriella Castillo RN [phone]
[2017-12-01] MEDS: DIGOXIN 0.125 MG TAB PO SCH (16:55)
[2017-12-01] MEDS: GABAPENTIN 300 MG CAP PO SCH (20:22)
[2017-12-01] MEDS: FINASTERIDE 5 MG TAB PO SCH (20:22)
[2017-12-01] MEDS: METOPROLOL SUCC 25MG EXT REL TAB PO SCH (20:23)
[2017-12-01] MEDS: SIMVASTATIN 20 MG TAB PO SCH (20:24)
[2017-12-01] MEDS: CEFTRIAXONE SOD INJ 2000 MG in DEXTROSE 5% 50ML IV SCH (20:30)
[2017-12-02] VITALS (27 sets, daily range): BP systolic 79–119; BP diastolic 40–61; PULSE 80–104; TEMP 36.5–37.2; O2SAT 89–100
[2017-12-02] MEDS: IPRATROPIUM BROMIDE NEB SOLN 0.02% 2.5 ML VIAL INH SCH ×4 (01:59→19:21)
[2017-12-02] MEDS: LEVALBUTEROL 1.25MG/0.5ML NEB INH SCH ×4 (01:59→19:21)
--- NOTE | 2017-12-02 03:33 | Progress Note ---
Medicine Progress Note Date & Time of Visit: December 01, 2017 at 0900 Subjective 87-year-old man presented with shortness of breath secondary to decompensated heart failure. He presented to the ER yesterday after hemodialysis reporting lightheadedness and dizziness for the last week and was found to have systolic blood pressure of 60 on arrival. BP unresponsive to fluid administration, transferred to ICU for possible shock. The patient is on BiPAP this morning and is denying any issues with shortness of breath, chest pain, fevers, chills, cough. He states he feels fine but presented because his legs were weak. He denies any UTI symptoms. He is asking for food. Objective Last 8 Hrs Date Time Temp Pulse Resp B/P (MAP) Pulse Ox O2 Delivery O2 Flow Rate FiO2 12/01/17 17:44 91 22 93/53 (66) 96 BiPAP 35 12/01/17 17:00 96 21 93/53 (66) 93 12/01/17 16:55 109 12/01/17 16:00 Nasal Cannula 4.0 12/01/17 16:00 36.8 102 22 118/70 (86) 93 Nasal Cannula 4.0 12/01/17 16:00 98 22 118/70 (86) 88 12/01/17 15:00 82 26 106/65 (79) 88 12/01/17 14:24 36.8 103 98/72 (81) 12/01/17 14:23 99 12/01/17 14:06 112 22 98/72 (81) 90 12/01/17 14:00 103 16 99/64 (76) 88 12/01/17 13:45 95 23 94/58 (70) 91 12/01/17 13:45 96 94/58 12/01/17 13:30 36.8 96 22 105/68 (80) 96 BiPAP 35 12/01/17 13:30 98 16 106/58 (74) 90 12/01/17 13:30 90 105/58 12/01/17 13:29 95 27 95 BiPAP/CPAP 35 12/01/17 13:15 93 23 102/57 (72) 97 12/01/17 13:15 97 102/57 12/01/17 13:00 99 20 106/63 (77) 99 12/01/17 13:00 90 106/63 12/01/17 12:45 95 13 108/62 (77) 99 12/01/17 12:45 93 108/62 12/01/17 12:30 92 110/68 12/01/17 12:30 88 23 94/65 (75) 12/01/17 12:15 91 114/74 12/01/17 12:15 92 14 114/74 (87) 100 12/01/17 12:00 91 17 112/67 (82) 12/01/17 12:00 92 112/67 12/01/17 11:45 92 111/65 12/01/17 11:34 74 100 35 12/01/17 11:30 83 113/75 12/01/17 11:20 36.6 81 22 112/62 (79) 96 BiPAP 35 12/01/17 11:20 96 BiPAP 35 12/01/17 11:15 87 115/58 12/01/17 10:58 36.7 82 106/53 (70) 12/01/17 10:58 36.7 82 106/53 (70) Physical Exam: GEN: obese, in no acute distress, alert and appropriate, BIPAP in place- desaturation to low 80s with removal of BIPAP temporarily HEENT: NC/AT, normal sclerae CARDIO: reg rate, S1/2 heard without m/g/r, +tunneled catheter LUNGS: CTA bilaterally, no crackles, rales or wheezes, good diaphragmatic excursion ABD: soft, non-tender, non-distended, no rebound or guarding EXTREMITY: RP and DP palpable 2+ bilat, no LE swelling or edema, extremities are warm and well-perfused. +fistula NEURO: CN 2-12 grossly intact MUSC: moves all extremities equally, no gross focal deficits. SKIN: warm and dry Laboratory Results: 12/01/17 04:00 Red Blood Count 3.35, Mean Corpuscular Volume 98.2, Mean Corpuscular Hemoglobin 29.6, Mean Corpuscular Hemoglobin Concent 30.1, Mean Platelet Volume 10.0, Neutrophils (%) (Auto) 78.7, Lymphocytes (%) (Auto) 7.4, Monocytes (%) (Auto) 10.7, Eosinophils (%) (Auto) 1.9, Basophils (%) (Auto) 0.5, Neutrophils # (Auto ) 6.26, Lymphocytes # (Auto) 0.59, Monocytes # (Auto) 0.85, Eosinophils # (Auto ) 0.15, Basophils # (Auto) 0.04 12/01/17 04:00 Test 11/30/17 19:00 11/30/17 19:09 11/30/17 19:43 11/30/17 20:34 Estimated Average Glucose 117 mg/dl Hemoglobin A1c 5.7 % (4.5-5.6) Total Bilirubin 0.4 mg/dl (0.2-1) Aspartate Amino Transf (AST/SGOT) 7 U/L (15-37) Alanine Aminotransferase (ALT/SGPT) 14 U/L (12-78) Alkaline Phosphatase 66 U/L (45-117) Total Protein 7.4 gm/dl (6.4-8.2) Albumin 3.0 gm/dl (3.4-5.0) Globulin 4.4 gm/dl (2.5-4.0) Albumin/Globulin Ratio 0.7 (0.9-2) Bedside Lactic Acid Venous 1.18 mmol/L (0.90-1.70) Urine Color BROWN Urine Appearance TURBID (CLEAR) Urine pH 5.5 (4.5-7.5) Urine Specific [place] 1.025 (1.000-1.030) Urine Protein 2+ (NEG) Urine Glucose (UA) NEG (NEG) Urine Ketones TRACE (NEG) Urine Occult Blood 3+ (NEG) Urine Nitrite NEG (NEG) Urine Bilirubin NEG (NEG) Urine Urobilinogen NEG (NEG) Urine Leukocyte Esterase NEG (NEG) Urine RBC >30 /hpf (0-4) Urine WBC 10-30 /hpf (0-5) Urine Epithelial Cells 10-20 /lpf (0-5) Urine Bacteria 1+ (NEG) Urine Hyaline Casts 10-30 /lpf (0-5) Arterial Blood pH 7.34 (7.35-7.45) Arterial Blood Partial Pressure CO2 54 mmHg (35-46) Arterial Blood Partial Pressure O2 104 mm/Hg (80-95) Arterial Blood HCO3 29 mmol/L (19-24) Arterial Blood Oxygen Saturation 96.0 % (90-95) Arterial Blood Base Excess 2.4 mEq/L (-9-1.8) Arterial Blood Gas Delivery 50% Jay Test POS (POS) Procalcitonin 1.10 ng/ml (0-0.5) Test 11/30/17 23:25 12/01/17 04:00 12/01/17 05:16 12/01/17 05:58 Total Creatine Kinase 22 U/L (39-308) Creatine Kinase MB 2.1 ng/ml (0.5-3.6) Creatine Kinase MB Ratio 9.5 (0-3.0) Random Cortisol 9.71 mcg/dl White Blood Count 7.95 K/uL (4.8-10.8) Red Blood Count 3.35 M/uL (4.7-6.1) Hemoglobin 9.9 g/dL (14.0-18.0) Hematocrit 32.9 % (42-52) Mean Corpuscular Volume 98.2 fL (80-100) Mean Corpuscular Hemoglobin 29.6 pg (25-34) Mean Corpuscular Hemoglobin Concent 30.1 g/dl (32-36) Platelet Count 125 K/uL (130-400) Mean Platelet Volume 10.0 fL (7.4-10.4) Neutrophils (%) (Auto) 78.7 % Lymphocytes (%) (Auto) 7.4 % Monocytes (%) (Auto) 10.7 % Eosinophils (%) (Auto) 1.9 % Basophils (%) (Auto) 0.5 % Neutrophils # (Auto) 6.26 K/uL (1.4-6.5) Lymphocytes # (Auto) 0.59 K/uL (1.2-3.4) Monocytes # (Auto) 0.85 K/uL (0.11-0.59) Eosinophils # (Auto) 0.15 K/uL (0-0.5) Basophils # (Auto) 0.04 K/uL (0-0.2) RDW Standard Deviation 58.1 fL (36.4-46.3) RDW Coefficient of Variation 16.3 % (11.5-14.5) Immature Granulocyte % (Auto) 0.8 % Immature Granulocyte # (Auto) 0.06 K/uL (0.00-0.02) Nucleated RBC Absolute Count (auto) 0.02 K/uL (0-0) Nucleated Red Blood Cells % 0.3 % Prothrombin Time 11.7 SECONDS (9.0-12.0) Prothromb Time International Ratio 1.1 (0.9-1.1) Activated Partial Thromboplast Time 31.3 SECONDS (21.0-31.0) Partial Thromboplastin Ratio 1.2 Anion Gap 3.0 mmol/L (3-11) Est Creatinine Clear Calc Drug Dose 15.0 ml/min Estimated GFR () 11.0 Estimated GFR (Non- 9.5 BUN/Creatinine Ratio 7.4 (10-20) Calcium Level 8.1 mg/dl (8.5-10.1) Phosphorus Level 6.3 mg/dl (2.5-4.9) Magnesium Level 2.3 mg/dl (1.8-2.4) Troponin I < 0.015 ng/ml (0-0.045) Blood Gas Sample Site R Radial Bedside Blood Gas pH (LAB) 7.28 (7.35-7.45) Bedside Blood Gas pCO2 (LAB) 67 mmHg (35-46) Bedside Blood Gas pO2 (LAB) 66 mmHg (80-95) Bedside Blood Gas HCO3 (LAB) 32 meq/L (19-24) Bedside Blood Gas Total CO2 34 mEq/l (24-31) Bedside Blood Gas Base Excess (LAB) 5.0 meq/L (-9-1.8) Bedside Blood Gas O2 Saturation 89.0 % (90-95) Jay Test Pass Oxygen Delivery Device BIPAP Bedside Oxygen Rate (breaths/min) 24 Bedside FiO2 35 % Blood Gas IPAP 12 Lactic Acid Level 1.0 mmol/L (0.4-2.0) Test 12/01/17 20:08 Bedside Glucose 179 mg/dl (70-99) Date/Time Source Procedure Growth Status 12/01/17 10:52 Blood Blood Culture Pending Received 11/30/17 22:19 Nasal MRSA DNA Surveillance Screen - Final Specimen Negative for MRSA by DNA Probe Complete 11/30/17 19:43 Urine,Catheterized Urine Culture - Preliminary NO GROWTH - LESS THAN 1,000 COLONIES/... Resulted Last 24 Hours Test 11/30/17 19:00 11/30/17 19:09 11/30/17 19:43 11/30/17 20:34 White Blood Count 11.33 K/uL Red Blood Count 3.47 M/uL Hemoglobin 10.3 g/dL Hematocrit 33.4 % Mean Corpuscular Volume 96.3 fL Mean Corpuscular Hemoglobin 29.7 pg Mean Corpuscular Hemoglobin Concent 30.8 g/dl Platelet Count 136 K/uL Mean Platelet Volume 9.8 fL Neutrophils (%) (Auto) 85.6 % Lymphocytes (%) (Auto) 3.6 % Monocytes (%) (Auto) 8.7 % Eosinophils (%) (Auto) 1.0 % Basophils (%) (Auto) 0.4 % Neutrophils # (Auto) 9.69 K/uL Lymphocytes # (Auto) 0.41 K/uL Monocytes # (Auto) 0.99 K/uL Eosinophils # (Auto) 0.11 K/uL Basophils # (Auto) 0.05 K/uL RDW Standard Deviation 56.9 fL RDW Coefficient of Variation 16.1 % Immature Granulocyte % (Auto) 0.7 % Immature Granulocyte # (Auto) 0.08 K/uL Prothrombin Time 11.5 SECONDS Prothromb Time International Ratio 1.1 Activated Partial Thromboplast Time 31.2 SECONDS Partial Thromboplastin Ratio 1.2 Sodium Level 134 mmol/L Potassium Level 3.7 mmol/L Chloride Level 99 mmol/L Carbon Dioxide Level 29 mmol/L Anion Gap 6.0 mmol/L Blood Urea Nitrogen 32 mg/dl Creatinine 4.73 mg/dl Est Creatinine Clear Calc Drug Dose 16.3 ml/min Estimated GFR () 12.1 Estimated GFR (Non- 10.4 BUN/Creatinine Ratio 6.9 Random Glucose 144 mg/dl Estimated Average Glucose 117 mg/dl Hemoglobin A1c 5.7 % Calcium Level 8.4 mg/dl Total Bilirubin 0.4 mg/dl Aspartate Amino Transf (AST/SGOT) 7 U/L Alanine Aminotransferase (ALT/SGPT) 14 U/L Alkaline Phosphatase 66 U/L Total Protein 7.4 gm/dl Albumin 3.0 gm/dl Globulin 4.4 gm/dl Albumin/Globulin Ratio 0.7 Bedside Lactic Acid Venous 1.18 mmol/L Urine Color BROWN Urine Appearance TURBID Urine pH 5.5 Urine Specific [place] 1.025 Urine Protein 2+ Urine Glucose (UA) NEG Urine Ketones TRACE Urine Occult Blood 3+ Urine Nitrite NEG Urine Bilirubin NEG Urine Urobilinogen NEG Urine Leukocyte Esterase NEG Urine RBC >30 /hpf Urine WBC 10-30 /hpf Urine Epithelial Cells 10-20 /lpf Urine Bacteria 1+ Urine Hyaline Casts 10-30 /lpf Arterial Blood pH 7.34 Arterial Blood Partial Pressure CO2 54 mmHg Arterial Blood Partial Pressure O2 104 mm/Hg Arterial Blood HCO3 29 mmol/L Arterial Blood Oxygen Saturation 96.0 % Arterial Blood Base Excess 2.4 mEq/L Arterial Blood Gas Delivery 50% Jay Test POS Magnesium Level 1.9 mg/dl Procalcitonin 1.10 ng/ml Test 11/30/17 22:17 11/30/17 23:25 11/30/17 23:29 12/01/17 00:13 Bedside Glucose 119 mg/dl 118 mg/dl Total Creatine Kinase 22 U/L Creatine Kinase MB 2.1 ng/ml Creatine Kinase MB Ratio 9.5 Troponin I < 0.015 ng/ml Random Cortisol 9.71 mcg/dl Blood Gas Sample Site R Radial Bedside Blood Gas pH (LAB) 7.30 Bedside Blood Gas pCO2 (LAB) 63 mmHg Bedside Blood Gas pO2 (LAB) 74 mmHg Bedside Blood Gas HCO3 (LAB) 31 meq/L Bedside Blood Gas Total CO2 33 mEq/l Bedside Blood Gas Base Excess (LAB) 4.0 meq/L Bedside Blood Gas O2 Saturation 93.0 % Jay Test Pass Oxygen Delivery Device BIPAP Bedside Oxygen Rate (breaths/min) 16 Bedside FiO2 35 % Blood Gas IPAP 10 Test 12/01/17 04:00 12/01/17 05:16 12/01/17 05:58 12/01/17 06:15 White Blood Count 7.95 K/uL Red Blood Count 3.35 M/uL Hemoglobin 9.9 g/dL Hematocrit 32.9 % Mean Corpuscular Volume 98.2 fL Mean Corpuscular Hemoglobin 29.6 pg Mean Corpuscular Hemoglobin Concent 30.1 g/dl Platelet Count 125 K/uL Mean Platelet Volume 10.0 fL Neutrophils (%) (Auto) 78.7 % Lymphocytes (%) (Auto) 7.4 % Monocytes (%) (Auto) 10.7 % Eosinophils (%) (Auto) 1.9 % Basophils (%) (Auto) 0.5 % Neutrophils # (Auto) 6.26 K/uL Lymphocytes # (Auto) 0.59 K/uL Monocytes # (Auto) 0.85 K/uL Eosinophils # (Auto) 0.15 K/uL Basophils # (Auto) 0.04 K/uL RDW Standard Deviation 58.1 fL RDW Coefficient of Variation 16.3 % Immature Granulocyte % (Auto) 0.8 % Immature Granulocyte # (Auto) 0.06 K/uL Nucleated RBC Absolute Count (auto) 0.02 K/uL Nucleated Red Blood Cells % 0.3 % Prothrombin Time 11.7 SECONDS Prothromb Time International Ratio 1.1 Activated Partial Thromboplast Time 31.3 SECONDS Partial Thromboplastin Ratio 1.2 Sodium Level 137 mmol/L Potassium Level 3.9 mmol/L Chloride Level 103 mmol/L Carbon Dioxide Level 31 mmol/L Anion Gap 3.0 mmol/L Blood Urea Nitrogen 38 mg/dl Creatinine 5.12 mg/dl Est Creatinine Clear Calc Drug Dose 15.0 ml/min Estimated GFR () 11.0 Estimated GFR (Non- 9.5 BUN/Creatinine Ratio 7.4 Random Glucose 95 mg/dl Calcium Level 8.1 mg/dl Phosphorus Level 6.3 mg/dl Magnesium Level 2.3 mg/dl Troponin I < 0.015 ng/ml Blood Gas Sample Site R Radial Bedside Blood Gas pH (LAB) 7.28 Bedside Blood Gas pCO2 (LAB) 67 mmHg Bedside Blood Gas pO2 (LAB) 66 mmHg Bedside Blood Gas HCO3 (LAB) 32 meq/L Bedside Blood Gas Total CO2 34 mEq/l Bedside Blood Gas Base Excess (LAB) 5.0 meq/L Bedside Blood Gas O2 Saturation 89.0 % Jay Test Pass Oxygen Delivery Device BIPAP Bedside Oxygen Rate (breaths/min) 24 Bedside FiO2 35 % Blood Gas IPAP 12 Lactic Acid Level 1.0 mmol/L Bedside Glucose 76 mg/dl Test 12/01/17 11:11 12/01/17 14:35 Bedside Glucose 99 mg/dl 89 mg/dl Date/Time Source Procedure Growth Status 12/01/17 10:52 Blood Blood Culture Pending Received 11/30/17 20:34 Blood Blood Culture Pending Received 11/30/17 19:05 Blood Blood Culture Pending Received 11/30/17 22:19 Nasal MRSA DNA Surveillance Screen - Final Specimen Negative for MRSA by DNA Probe Complete 11/30/17 19:43 Urine,Catheterized Urine Culture - Preliminary NO GROWTH - LESS THAN 1,000 COLONIES/... Resulted Assessment & Plan 87-year-old man presented with shortness of breath secondary to decompensated heart failure. He presented to the ER yesterday after hemodialysis reporting lightheadedness and dizziness for the last week and was found to have systolic blood pressure of 60 on arrival. BP unresponsive to fluid administration, transferred to ICU for possible shock. The patient is on BiPAP this morning and is denying any issues with shortness of breath, chest pain, fevers, chills, cough. He states he feels fine but presented because his legs were weak. He denies any UTI symptoms. He is asking for food. 1. Acute systolic heart failure-known ischemic cardiomyopathy with ejection fraction 35-40% patient is also on hemodialysis. Hemodialysis was performed today with greater than 2 L fluid pulled off. Continue daily dialysis per nephrology. Digoxin added by cardiology, amiodarone reduced, metoprolol was held in setting of hypotension. Appreciate cardiology racks. 2. Sepsis secondary to possible aspiration pneumonia-Zosyn was started in the ER, and Zosyn and doxycycline were continued in the ICU for coverage. Patient denies any current infectious symptoms. Continue antibiotics empirically pending blood cultures. Speech therapy consult was ordered. 3. Hypotension-hx chronic midodrine Rx. Minimal BP improvement with IVF bolus given in ER, pressors were considered but not given as blood pressure improved. 4. Hypoxia secondary to #1-patient requires BiPAP at this time. 5. Coronary artery disease status post stenting-appears stable, no chest pain. Serial cardiac enzymes are negative. No EKG changes consistent with ischemia. Continue medical management. 6. Atrial fibrillation-continue amiodarone at reduced dose per cardiology, anticoagulated on apixaban. 7. DM2-well controlled, continue insulin sliding scale with carb coverage while hospitalized. Recent A1c in July was 6.9. 8. Hx of heparin-induced thrombocytopenia. 9. 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 10. Obesity-PT/OT evaluation to assess ambulation. DVT prophylaxis-apixaban Full code Disposition-continue ICU monitoring Daysi Page DO [facility] hospitalist Consultants: ICU-Kimberly AndersonAntonino Current Inpatient Medications: Current Inpatient Medications Medications (Trade) Dose Ordered Sig/Ronak Route Start Time Stop Time Status Last Admin Dose Admin Ipratropium [place] (Atrovent 0.02% 0.5MG/2.5ML Neb) 0.5 mg Q4H PRN INH 11/30/17 20:30 12/30/17 20:29 Levalbuterol (Xopenex 1.25MG/ 0.5ML Neb) 1.25 mg Q4H PRN INH 11/30/17 20:30 12/30/17 20:29 Acetaminophen (Tylenol Tab) 650 mg Q4H PRN PO 11/30/17 22:00 12/30/17 21:59 Nitroglycerin (Nitrostat Tab) 0.4 mg UD PRN SL 11/30/17 22:00 12/30/17 21:59 Miscellaneous Information (Icu Protocol For Hyperglycemia) 1 ea PRN PRN N/A 11/30/17 22:00 12/02/17 21:59 Insulin Aspart (novoLOG ASPART) SLIDING SCALE If C... ACHS SC 12/01/17 06:45 12/31/17 06:59 Glucose (Glucose 40% Gel) 15-30 GRAMS 15 GRAMS... UD PRN PO 11/30/17 22:00 12/30/17 21:59 Glucose (Glucose Chew Tab) 4-8 Tablets 4 Tabl... UD PRN PO 11/30/17 22:00 12/30/17 21:59 Dextrose (Dextrose 50% 50ML Syringe) 25-50ML 25ML FOR ... UD PRN IV 11/30/17 22:00 12/30/17 21:59 Glucagon (Glucagon Inj) 1 mg UD PRN SQ 11/30/17 22:00 12/30/17 21:59 Carbohydrates (Carbohydrates For Hypoglycemia) 15-30 GRAMS 15 grams if BSG 54-69... UD PRN PO 11/30/17 22:00 12/30/17 21:59 Pantoprazole Sodium 40 mg/ Syringe 10 ml @ 5 mls/min DAILY IV 12/01/17 09:00 12/31/17 08:59 12/01/17 08:33 5 MLS/MIN Miscellaneous Information (Icu Protocol For Hyperglycemia) 1 ea PRN PRN N/A 11/30/17 23:00 12/02/17 22:59 Doxycycline Hyclate 100 mg/ Dextrose 110 ml @ 50 mls/hr BID@0000,1200 IV 12/01/17 00:00 12/08/17 00:00 12/01/17 14:31 50 MLS/HR Apixaban (Eliquis Tab) 2.5 mg BID PO 12/01/17 09:00 6/3/18 08:59 12/01/17 08:33 2.5 MG Aspirin (Ecotrin Tab) 81 mg QAM PO 12/01/17 09:00 12/31/17 08:59 12/01/17 08:33 81 MG Docusate Sodium (coLACE CAP) 100 mg BID PO 12/01/17 09:00 12/31/17 08:59 12/01/17 09:00 100 MG Finasteride (Proscar Tab) 5 mg HS PO 12/01/17 21:00 12/31/17 20:59 Salmeterol Xinafoate/ Fluticasone (Advair Diskus 250/50 Inh) 1 puff BID INH 12/01/17 09:00 12/31/17 08:59 12/01/17 08:33 1 PUFF Gabapentin (Neurontin Cap) 300 mg HS PO 12/01/17 21:00 12/31/17 20:59 Oxycodone HCl (Roxicodone Immediate Rel Tab) 5 mg Q4H PRN PO 11/30/17 23:45 12/14/17 23:44 Simvastatin (Zocor Tab) 20 mg QPM PO 12/01/17 21:00 12/31/17 20:59 Tramadol HCl (Ultram Tab) 50 mg Q8H PRN PO 11/30/17 23:45 12/30/17 23:44 Polyethylene (Miralax Powder Packet) 17 gm DAILY PRN PO 11/30/17 23:45 12/30/17 23:44 Midodrine (Proamatine Tab) 2.5 mg TID@0800,1300,1800 PO 12/01/17 08:00 12/31/17 07:59 12/01/17 17:41 2.5 MG Prochlorperazine Edisylate 5 mg/ Syringe 5 ml @ 5 mls/min Q6H PRN IV 11/30/17 23:45 12/30/17 23:44 Ipratropium [place] (Atrovent 0.02% 0.5MG/2.5ML Neb) 0.5 mg Q6R INH 12/01/17 03:00 12/31/17 02:59 12/01/17 13:29 0.5 MG Levalbuterol (Xopenex 1.25MG/ 0.5ML Neb) 1.25 mg Q6R INH 12/01/17 03:00 12/31/17 02:59 12/01/17 13:28 1.25 MG Amiodarone HCl (Cordarone Tab) 200 mg DAILY PO 12/02/17 09:00 12/31/17 08:59 Digoxin (Lanoxin Tab) 0.125 mg MoWeFr@1600 PO 12/01/17 16:00 12/31/17 15:59 12/01/17 16:55 0.125 MG Ceftriaxone Sodium 2000 mg/ Dextrose 70 ml @ 140 mls/hr Q24H IV 12/01/17 20:00 12/08/17 19:59 Metoprolol Succinate (Toprol Xl Tab) 25 mg BID PO 12/01/17 21:00 12/31/17 20:59
[2017-12-02 04:27] LABS: BASO % 0.3 %; BASO ABS # 0.04 K/uL (0-0.2); EOS % 1.1 %; EOS ABS # 0.13 K/uL (0-0.5); HEMATOCRIT 33.1 % (42-52); HEMOGLOBIN 10.1 g/dL (14.0-18.0); IG# 0.11 K/uL (0.00-0.02); LYMPH % 5.5 %; LYMPH ABS # 0.65 K/uL (1.2-3.4); MEAN CELL VOLUME 97.1 fL (80-100); MEAN CORPUSCULAR HEMOGLOBIN 29.6 pg (25-34); MEAN CORPUSCULAR HGB CONC 30.5 g/dl (32-36); MEAN PLATELET VOLUME 10.4 fL (7.4-10.4); MONO % 9.6 %; MONO ABS # 1.14 K/uL (0.11-0.59); NEUT % 82.6 %; NEUT ABS # 9.82 K/uL (1.4-6.5); NUCLEATED RED BLOOD CELL ABS 0.08 K/uL (0-0); PLATELET COUNT 132 K/uL (130-400); RED CELL DISTRIBUTION WIDTH CV 16.4 % (11.5-14.5); RED CELL DISTRIBUTION WIDTH SD 57.3 fL (36.4-46.3); WHITE BLOOD COUNT 11.89 K/uL (4.8-10.8)
[2017-12-02 04:57] LABS: CREATININE 5.09 mg/dl (0.60-1.40); POTASSIUM 3.6 mmol/L (3.5-5.1)
[2017-12-02 05:02] LABS: PHOSPHORUS 4.9 mg/dl (2.5-4.9)
--- NOTE | 2017-12-02 05:13 | Critical Care Progress Note ---
Critical Care Progress Note Date of Service December 02, 2017. ICU Day ICU Day Number: [address] Harris Subjective Patient had an uneventful night. He was not tolerating BiPAP, but did well off BiPAP otherwise. Sitting at bedside. Feels hungry. Objective VITAL SIGNS - Vital signs and nursing notes were reviewed. GENERAL - 87-year-old male appearing his stated age who is in no acute distress. Awake, alert and oriented. NECK - Neck with FROM. Supple to palpation. LUNGS - Chest wall symmetric without accessory muscle use, intercostals retractions, or central cyanosis. Poor inspiratory effort. Distant breath sounds. CARDIAC - RRR with S1/S2. No murmur, rubs, or gallops appreciated. No reproducible tenderness to palpation appreciated over the anterior chest wall. ABDOMEN - Abdominal contour obese and without pulsations or visible masses. BS normoactive all four quadrants. No tenderness, palpable masses, hepatosplenomegaly, or ascites noted. EXTREMITIES - No clubbing or peripheral cyanosis. Mild pretibial edema present. +5/5 strength noted in UE/LE bilaterally. NEUROLOGIC - Cranial nerves II through XII grossly intact. Sensory intact to light touch throughout. PSYCH - A&Ox3 and cooperates fully with examiner. Pt is very pleasant and interacts well with examiner. Assessment & Plan Reason Critically Ill: 87-year-old male with a significant past medical history of coronary artery disease, CHF, paroxysmal atrial fibrillation, COPD, and end- stage renal disease on hemodialysis Monday//Monday presenting with hypotension and increasing lethargy for the past week. Concerns for volume overload versus underlying pneumonia process noted. Requiring positive pressure ventilation and close monitoring from a hemodynamic standpoint. Neuro - * CAM ICU: NEGATIVE * Chronic Pain: Oxy, Ultram PRN * Would avoid if patient has persistent weakness/lethargy. * Lethargy: * CT Head unremarkable. * Greatly improved overnight. Cardiac - * Hypotension: * Persistent - resolving w/ treatment. * Continue per cardiology recommendations. * CAD, OK, PTCA, A. fib, HTN, CHF: * Continue home Rx as BP tolerates. * EKG: A. fib RVR at 101bpm. QTc 518ms. * Appreciate cardiology consultation. Respiratory - * Acute on Chronic Hypoxemic Respiratory Failure w/ Hypercapnia: * BiPAP for positive pressure support. * Has been doing well off BiPAP overnight. * AM CXR. * RLL PNA: * See ID * Treatment: Nebs. GI - * To undergo formal swallow evaluation today. RENAL/LYTES - * ESRD on HD Monday//Monday: * Continue w/ HD per Nephro - * Will await urine culture results given UA results. * Urine cultures negative. ENDO - * DM: * ISS at this point. Will add gtt PRN per protocols. * No h/o Thyroid Dz. HEME - * Anemia of chronic disease/ESRD: * Trend H&H * Monitor closely for any bleeding while on Eliquis. ID - * RIGHT Lower Lobe Pneumonia: * Current Abx: Rocephin, Doxy * Will check ProCal and monitor for effective antibiotic treatment. * Lactate not elevated. LINES/IV ACCESS - * PIVs x2 DVT PROPHYLAXIS - * Eliquis per home dosing. Documentation By: Ike Tavares PA-C Thank you for this consultation allow us to be part of this patient's care. Please refer to my attending physician's documentation for any further recommendations. I have personally evaluated and examined this patient. I agree with assessment and plan of Triston Tavares PA-C. Patient without complaint tolerated off BiPAP the entire evening. Reviewed vital signs, there is one episode of hypotension overnight which in discussion with staff was associated with the patient was sitting upright in chair alert and not complaining of any issues. I reviewed prior records and particularly the patient's previous admission his blood pressure ranged from the high 80s up to the 120s systolic. With regards to possible adrenal insufficiency was given 1 dose of stress steroids and has had an appropriate response to the midodrine. With a possible pneumonia patient is still on antibiotics at this time, the spectrum has been narrowed. I feel total 7 day course would be adequate, there is an elevated procalcitonin which could be used for trending however could be elevated and renal failure itself. Patient is being transitioned to digoxin therapy with the assistance of cardiology Electrolytes are being managed during his dialysis. Given his improvement I believe the patient is stable for downgrade to telemetry status. Consults & Procedures Consultants: Cardiology Nephrology Data Medications: Current Inpatient Medications Medications (Trade) Dose Ordered Sig/Ronak Route Start Time Stop Time Status Last Admin Dose Admin Ipratropium [place] (Atrovent 0.02% 0.5MG/2.5ML Neb) 0.5 mg Q4H PRN INH 11/30/17 20:30 12/30/17 20:29 Levalbuterol (Xopenex 1.25MG/ 0.5ML Neb) 1.25 mg Q4H PRN INH 11/30/17 20:30 12/30/17 20:29 Acetaminophen (Tylenol Tab) 650 mg Q4H PRN PO 11/30/17 22:00 12/30/17 21:59 Nitroglycerin (Nitrostat Tab) 0.4 mg UD PRN SL 11/30/17 22:00 12/30/17 21:59 Miscellaneous Information (Icu Protocol For Hyperglycemia) 1 ea PRN PRN N/A 11/30/17 22:00 12/02/17 21:59 Insulin Aspart (novoLOG ASPART) SLIDING SCALE If C... ACHS SC 12/01/17 06:45 12/31/17 06:59 Glucose (Glucose 40% Gel) 15-30 GRAMS 15 GRAMS... UD PRN PO 11/30/17 22:00 12/30/17 21:59 Glucose (Glucose Chew Tab) 4-8 Tablets 4 Tabl... UD PRN PO 11/30/17 22:00 12/30/17 21:59 Dextrose (Dextrose 50% 50ML Syringe) 25-50ML 25ML FOR ... UD PRN IV 11/30/17 22:00 12/30/17 21:59 Glucagon (Glucagon Inj) 1 mg UD PRN SQ 11/30/17 22:00 12/30/17 21:59 Carbohydrates (Carbohydrates For Hypoglycemia) 15-30 GRAMS 15 grams if BSG 54-69... UD PRN PO 11/30/17 22:00 12/30/17 21:59 Pantoprazole Sodium 40 mg/ Syringe 10 ml @ 5 mls/min DAILY IV 12/01/17 09:00 12/31/17 08:59 12/01/17 08:33 5 MLS/MIN Miscellaneous Information (Icu Protocol For Hyperglycemia) 1 ea PRN PRN N/A 11/30/17 23:00 12/02/17 22:59 Doxycycline Hyclate 100 mg/ Dextrose 110 ml @ 50 mls/hr BID@0000,1200 IV 12/01/17 00:00 12/08/17 00:00 12/01/17 23:22 50 MLS/HR Apixaban (Eliquis Tab) 2.5 mg BID PO 12/01/17 09:00 12/31/17 08:59 12/01/17 20:23 2.5 MG Aspirin (Ecotrin Tab) 81 mg QAM PO 12/01/17 09:00 12/31/17 08:59 12/01/17 08:33 81 MG Docusate Sodium (coLACE CAP) 100 mg BID PO 12/01/17 09:00 12/31/17 08:59 12/01/17 20:21 100 MG Finasteride (Proscar Tab) 5 mg HS PO 12/01/17 21:00 12/31/17 20:59 12/01/17 20:22 5 MG Salmeterol Xinafoate/ Fluticasone (Advair Diskus 250/50 Inh) 1 puff BID INH 12/01/17 09:00 12/31/17 08:59 12/01/17 20:21 1 PUFF Gabapentin (Neurontin Cap) 300 mg HS PO 12/01/17 21:00 12/31/17 20:59 12/01/17 20:22 300 MG Oxycodone HCl (Roxicodone Immediate Rel Tab) 5 mg Q4H PRN PO 11/30/17 23:45 12/14/17 23:44 Simvastatin (Zocor Tab) 20 mg QPM PO 12/01/17 21:00 12/31/17 20:59 12/01/17 20:24 20 MG Tramadol HCl (Ultram Tab) 50 mg Q8H PRN PO 11/30/17 23:45 12/30/17 23:44 Polyethylene (Miralax Powder Packet) 17 gm DAILY PRN PO 11/30/17 23:45 12/30/17 23:44 Midodrine (Proamatine Tab) 2.5 mg TID@0800,1300,1800 PO 12/01/17 08:00 12/31/17 07:59 12/01/17 17:41 2.5 MG Prochlorperazine Edisylate 5 mg/ Syringe 5 ml @ 5 mls/min Q6H PRN IV 11/30/17 23:45 12/30/17 23:44 Ipratropium [place] (Atrovent 0.02% 0.5MG/2.5ML Neb) 0.5 mg Q6R INH 12/01/17 03:00 12/31/17 02:59 12/02/17 01:59 0.5 MG Levalbuterol (Xopenex 1.25MG/ 0.5ML Neb) 1.25 mg Q6R INH 12/01/17 03:00 12/31/17 02:59 12/02/17 01:59 1.25 MG Amiodarone HCl (Cordarone Tab) 200 mg DAILY PO 12/02/17 09:00 12/31/17 08:59 Digoxin (Lanoxin Tab) 0.125 mg MoWeFr@1600 PO 12/01/17 16:00 12/31/17 15:59 12/01/17 16:55 0.125 MG Ceftriaxone Sodium 2000 mg/ Dextrose 70 ml @ 140 mls/hr Q24H IV 12/01/17 20:00 12/08/17 19:59 12/01/17 20:30 140 MLS/HR Metoprolol Succinate (Toprol Xl Tab) 25 mg BID PO 12/01/17 21:00 12/31/17 20:59 Vital Signs: Date Time Temp Pulse Resp B/P (MAP) Pulse Ox O2 Delivery O2 Flow Rate FiO2 12/02/17 04:01 96 26 107/50 (69) 93 Nasal Cannula 3.0 12/02/17 04:00 94 Nasal Cannula 3.0 12/02/17 03:00 94 26 103/51 (68) 94 Nasal Cannula 3.0 12/02/17 02:00 95 26 79/50 (60) 99 Nasal Cannula 3.0 12/02/17 01:58 88 20 98 Nasal Cannula 12/02/17 00:00 37.1 90 26 82/40 (54) 98 BiPAP 35 12/01/17 23:59 94 Nasal Cannula 3.0 12/01/17 23:25 89 98 35 12/01/17 22:00 105 22 114/54 (74) 89 Nasal Cannula 3.0 12/01/17 20:20 95 27 90/42 (58) 90 12/01/17 20:00 36.4 92 28 98/73 (81) 99 Nasal Cannula 3.0 5/4/18 20:00 94 Nasal Cannula 3.0 12/01/18 19:49 93 97 35 5//18 19:48 93 28 97 BiPAP/CPAP 35 5/18 19:00 94 22 102/65 (77) 97 BiPAP 35 //18 17:44 91 22 93/53 (66) 96 BiPAP 35 12/01/18 17:00 96 21 93/53 (66) 93 18 16:55 109 12/01/17 16:00 Nasal Cannula 4.0 12/01/18 16:00 36.8 102 22 118/70 (86) 93 Nasal Cannula 4.0 18 16:00 98 22 118/70 (86) 88 12/01/17 15:00 82 26 106/65 (79) 88 12/01/17 14:24 36.8 103 98/72 (81) 12/01/17 14:23 99 /18 14:06 112 22 98/72 (81) 90 12/01/17 14:00 103 16 99/64 (76) 88 18 13:45 95 23 94/58 (70) 91 18 13:45 96 94/58 18 13:30 36.8 96 22 105/68 (80) 96 BiPAP 35 12/01/17 13:30 98 16 106/58 (74) 90 18 13:30 90 105/58 12/01/18 13:29 95 27 95 BiPAP/CPAP 35 12/01/17 13:15 93 23 102/57 (72) 97 18 13:15 97 102/57 12/01/18 13:00 99 20 106/63 (77) 99 5//18 13:00 90 106/63 12/01/18 12:45 95 13 108/62 (77) 99 5/18 12:45 93 108/62 5/18 12:30 92 110/68 5/18 12:30 88 23 94/65 (75) 18 12:15 91 114/74 5/18 12:15 92 14 114/74 (87) 100 18 12:00 91 17 112/67 (82) 5/4/18 12:00 92 112/67 12/01/17 11:45 92 111/65 12/01/17 11:34 74 100 35 12/01/17 11:30 83 113/75 12/01/17 11:20 36.6 81 22 112/62 (79) 96 BiPAP 35 12/01/17 11:20 96 BiPAP 35 12/01/17 11:15 87 115/58 12/01/17 10:58 36.7 82 106/53 (70) 12/01/17 10:58 36.7 82 106/53 (70) 12/01/17 10:30 87 24 102/55 (71) 96 12/01/17 10:00 84 21 91/49 (63) 100 12/01/17 09:30 91 24 109/51 (70) 95 12/01/17 09:23 83 24 101/56 (71) 96 BiPAP 35 12/01/17 09:00 86 17 101/56 (71) 98 12/01/17 08:30 80 24 106/55 (72) 97 12/01/17 08:00 82 26 100/59 (73) 96 12/01/17 08:00 BiPAP 35 12/01/17 07:40 BiPAP 15.0 35 12/01/17 07:30 83 18 86/56 (66) 12/01/17 07:30 36.5 77 26 83/58 (66) 99 BiPAP 35 12/01/17 07:07 76 92 35 12/01/17 07:06 77 28 92 BiPAP/CPAP 35 12/01/17 07:00 84 18 83/58 (66) 12/01/17 06:00 80 26 88/45 (59) 94 BiPAP 35 12/01/17 05:47 77 94 35 Laboratory Results: Last 24 Hours Test 12/01/17 05:16 12/01/17 05:58 12/01/17 06:15 12/01/17 11:11 Blood Gas Sample Site R Radial Bedside Blood Gas pH (LAB) 7.28 Bedside Blood Gas pCO2 (LAB) 67 mmHg Bedside Blood Gas pO2 (LAB) 66 mmHg Bedside Blood Gas HCO3 (LAB) 32 meq/L Bedside Blood Gas Total CO2 34 mEq/l Bedside Blood Gas Base Excess (LAB) 5.0 meq/L Bedside Blood Gas O2 Saturation 89.0 % Jay Test Pass Oxygen Delivery Device BIPAP Bedside Oxygen Rate (breaths/min) 24 Bedside FiO2 35 % Blood Gas IPAP 12 Lactic Acid Level 1.0 mmol/L Bedside Glucose 76 mg/dl 99 mg/dl Test 12/01/17 14:35 12/01/17 19:03 12/01/17 20:08 12/02/17 03:54 Bedside Glucose 89 mg/dl 179 mg/dl White Blood Count 11.89 K/uL Red Blood Count 3.41 M/uL Hemoglobin 10.1 g/dL Hematocrit 33.1 % Mean Corpuscular Volume 97.1 fL Mean Corpuscular Hemoglobin 29.6 pg Mean Corpuscular Hemoglobin Concent 30.5 g/dl Platelet Count 132 K/uL Mean Platelet Volume 10.4 fL Neutrophils (%) (Auto) 82.6 % Lymphocytes (%) (Auto) 5.5 % Monocytes (%) (Auto) 9.6 % Eosinophils (%) (Auto) 1.1 % Basophils (%) (Auto) 0.3 % Neutrophils # (Auto) 9.82 K/uL Lymphocytes # (Auto) 0.65 K/uL Monocytes # (Auto) 1.14 K/uL Eosinophils # (Auto) 0.13 K/uL Basophils # (Auto) 0.04 K/uL RDW Standard Deviation 57.3 fL RDW Coefficient of Variation 16.4 % Immature Granulocyte % (Auto) 0.9 % Immature Granulocyte # (Auto) 0.11 K/uL Nucleated RBC Absolute Count (auto) 0.08 K/uL Nucleated Red Blood Cells % 0.7 %
--- NOTE | 2017-12-02 07:09 | DIAGNOSTIC IMAGING REPORT ---
CHEST ONE VIEW PORTABLE CLINICAL HISTORY: 87 years-old Male presenting with pna/chf. TECHNIQUE: Portable upright AP view of the chest was obtained. COMPARISON: 12/01/2017. FINDINGS: Tunneled right internal jugular central venous catheter terminates in the lower SVC. Atherosclerosis of aortic arch. Cardiac silhouette mildly enlarged, slightly decreased from prior. Some interval decrease in pulmonary vascular prominence. Decreased central and bibasilar opacities with improved aeration of the left lung base. No large pleural effusion or pneumothorax. Degenerative changes of the thoracic spine. IMPRESSION: 1. Slight interval decrease in volume overload/congestive change and pulmonary edema with improved aeration of the lung bases. Mild pulmonary edema persists. Less likely these findings could relate to aspiration. Electronically signed by: Marcello Cullen M.D. 12/02/2017 7:07 AM Dictated Date/Time: 12/02/2017 7:06 AM
[2017-12-02] MEDS: INSULIN ASPART 100 UNITS/ML 3 ML PEN SC SCH ×4 (07:22→20:41)
[2017-12-02] MEDS: MIDODRINE 2.5 MG TAB PO SCH ×3 (07:49→16:45)
[2017-12-02] MEDS: APIXABAN 2.5 MG TAB PO SCH ×2 (07:49→20:11)
[2017-12-02] MEDS: ASPIRIN 81 MG ECTAB PO SCH (07:49)
[2017-12-02] MEDS: FLUTICASONE/SALMETEROL 250/50 (ADVAIR) 14 PUFF/1 INHALER INH SCH ×2 (07:49→19:51)
[2017-12-02] MEDS: DOCUSATE SODIUM 100 MG CAP PO SCH ×2 (07:49→20:10)
[2017-12-02] MEDS: METOPROLOL SUCC 25MG EXT REL TAB PO SCH ×2 (09:00→20:11)
[2017-12-02] MEDS: AMIODARONE 200 MG TAB PO SCH (10:00)
--- NOTE | 2017-12-02 10:09 | Nephrology Progress Note ---
Nephrology Progress Note Date of Service: December 02, 2017. Subjective up in chair; no c/o; off bipap since 0100; some sbp in 80s (not uncommon for him ); tele status Objective Date Time Temp Pulse Resp B/P (MAP) Pulse Ox O2 Delivery O2 Flow Rate FiO2 12/02/17 10:00 92 28 91/49 (63) 92 Nasal Cannula 3.0 12/02/17 08:00 Nasal Cannula 3.0 12/02/17 08:00 36.8 83 26 88/41 (57) 100 Nasal Cannula 3.0 12/02/17 07:57 80 18 96 Nasal Cannula 2.5 12/02/17 07:00 86 18 88/47 (61) 96 Nasal Cannula 3.0 12/02/17 05:00 84 22 100/52 (68) 94 Nasal Cannula 3.0 12/02/17 04:01 96 26 107/50 (69) 93 Nasal Cannula 3.0 12/02/17 04:00 94 Nasal Cannula 3.0 12/02/17 03:00 94 26 103/51 (68) 94 Nasal Cannula 3.0 12/02/17 02:00 95 26 79/50 (60) 99 Nasal Cannula 3.0 12/02/17 01:58 88 20 98 Nasal Cannula 12/02/17 00:00 37.1 90 26 82/40 (54) 98 BiPAP 35 12/01/17 23:59 94 Nasal Cannula 3.0 12/01/17 23:25 89 98 35 12/01/17 22:00 105 22 114/54 (74) 89 Nasal Cannula 3.0 12/01/17 20:20 95 27 90/42 (58) 90 12/01/17 20:00 36.4 92 28 98/73 (81) 99 Nasal Cannula 3.0 12/01/17 20:00 94 Nasal Cannula 3.0 12/01/17 19:49 93 97 35 12/01/17 19:48 93 28 97 BiPAP/CPAP 35 12/01/17 19:00 94 22 102/65 (77) 97 BiPAP 35 12/01/17 17:44 91 22 93/53 (66) 96 BiPAP 35 12/01/17 17:00 96 21 93/53 (66) 93 12/01/17 16:55 109 5/4/18 16:00 Nasal Cannula 4.0 5//18 16:00 36.8 102 22 118/70 (86) 93 Nasal Cannula 4.0 518 16:00 98 22 118/70 (86) 88 518 15:00 82 26 106/65 (79) 88 518 14:24 36.8 103 98/72 (81) 518 14:23 99 5//18 14:06 112 22 98/72 (81) 90 518 14:00 103 16 99/64 (76) 88 518 13:45 95 23 94/58 (70) 91 5/18 13:45 96 94/58 5/18 13:30 36.8 96 22 105/68 (80) 96 BiPAP 35 /18 13:30 98 16 106/58 (74) 90 18 13:30 90 105/58 5//18 13:29 95 27 95 BiPAP/CPAP 35 18 13:15 93 23 102/57 (72) 97 5//18 13:15 97 102/57 12/01/18 13:00 99 20 106/63 (77) 99 5//18 13:00 90 106/63 5//18 12:45 95 13 108/62 (77) 99 518 12:45 93 108/62 //18 12:30 92 110/68 5/18 12:30 88 23 94/65 (75) 12/01/17 12:15 91 114/74 5/18 12:15 92 14 114/74 (87) 100 5//18 12:00 91 17 112/67 (82) 518 12:00 92 112/67 5/18 11:45 92 111/65 5//18 11:34 74 100 35 5//18 11:30 83 113/75 5//18 11:20 36.6 81 22 112/62 (79) 96 BiPAP 35 5/4/18 11:20 96 BiPAP 35 5/4/18 11:15 87 115/58 5//18 10:58 36.7 82 106/53 (70) 5/4/18 10:58 36.7 82 106/53 (70) 12/01/17 10:30 87 24 102/55 (71) 96 Physical Exam: General Appearance: WD/WN, no apparent distress (on 02NC up in chair, resting but wakens briefly) Eyes: EOMI ENT: hearing grossly normal Neck: supple Respiratory/Chest: no respiratory distress, + decreased breath sounds, rhoncherous Cardiovascular: irregularly irregular, trace-1+ dependent edema Abdomen: normal bowel sounds, non tender, soft Extremities: no pedal edema, + pertinent finding (avf LUE + t/b) Neurologic/Psych: alert when awake, normal mood/affect, oriented x 3 Skin: no jaundice, warm/dry, no rash Current Inpatient Medications Medications (Trade) Dose Ordered Sig/Ronak Route Start Time Stop Time Status Last Admin Dose Admin Ipratropium [place] (Atrovent 0.02% 0.5MG/2.5ML Neb) 0.5 mg Q4H PRN INH 11/30/17 20:30 12/30/17 20:29 Levalbuterol (Xopenex 1.25MG/ 0.5ML Neb) 1.25 mg Q4H PRN INH 11/30/17 20:30 12/30/17 20:29 Acetaminophen (Tylenol Tab) 650 mg Q4H PRN PO 11/30/17 22:00 12/30/17 21:59 Nitroglycerin (Nitrostat Tab) 0.4 mg UD PRN SL 11/30/17 22:00 12/30/17 21:59 Miscellaneous Information (Icu Protocol For Hyperglycemia) 1 ea PRN PRN N/A 11/30/17 22:00 12/02/17 21:59 Insulin Aspart (novoLOG ASPART) SLIDING SCALE If C... ACHS SC 12/01/17 06:45 12/31/17 06:59 Glucose (Glucose 40% Gel) 15-30 GRAMS 15 GRAMS... UD PRN PO 11/30/17 22:00 12/30/17 21:59 Glucose (Glucose Chew Tab) 4-8 Tablets 4 Tabl... UD PRN PO 11/30/17 22:00 12/30/17 21:59 Dextrose (Dextrose 50% 50ML Syringe) 25-50ML 25ML FOR ... UD PRN IV 5/3/18 22:00 12/30/17 21:59 Glucagon (Glucagon Inj) 1 mg UD PRN SQ 11/30/17 22:00 12/30/17 21:59 Carbohydrates (Carbohydrates For Hypoglycemia) 15-30 GRAMS 15 grams if BSG 54-69... UD PRN PO 11/30/17 22:00 12/30/17 21:59 Pantoprazole Sodium 40 mg/ Syringe 10 ml @ 5 mls/min DAILY IV 12/01/17 09:00 12/31/17 08:59 12/01/17 08:33 5 MLS/MIN Miscellaneous Information (Icu Protocol For Hyperglycemia) 1 ea PRN PRN N/A 11/30/17 23:00 12/02/17 22:59 Doxycycline Hyclate 100 mg/ Dextrose 110 ml @ 50 mls/hr BID@0000,1200 IV 12/01/17 00:00 12/08/17 00:00 12/01/17 23:22 50 MLS/HR Apixaban (Eliquis Tab) 2.5 mg BID PO 12/01/17 09:00 12/31/17 08:59 12/02/17 07:49 2.5 MG Aspirin (Ecotrin Tab) 81 mg QAM PO 12/01/17 09:00 12/31/17 08:59 12/02/17 07:49 81 MG Docusate Sodium (coLACE CAP) 100 mg BID PO 12/01/17 09:00 12/31/17 08:59 12/02/17 07:49 100 MG Finasteride (Proscar Tab) 5 mg HS PO 12/01/17 21:00 12/31/17 20:59 12/01/17 20:22 5 MG Salmeterol Xinafoate/ Fluticasone (Advair Diskus 250/50 Inh) 1 puff BID INH 12/01/17 09:00 12/31/17 08:59 12/02/17 07:49 1 PUFF Gabapentin (Neurontin Cap) 300 mg HS PO 12/01/17 21:00 12/31/17 20:59 12/01/17 20:22 300 MG Oxycodone HCl (Roxicodone Immediate Rel Tab) 5 mg Q4H PRN PO 11/30/17 23:45 12/14/17 23:44 Simvastatin (Zocor Tab) 20 mg QPM PO 12/01/17 21:00 12/31/17 20:59 12/01/17 20:24 20 MG Tramadol HCl (Ultram Tab) 50 mg Q8H PRN PO 11/30/17 23:45 12/30/17 23:44 Polyethylene (Miralax Powder Packet) 17 gm DAILY PRN PO 11/30/17 23:45 12/30/17 23:44 Midodrine (Proamatine Tab) 2.5 mg TID@0800,1300,1800 PO 12/01/17 08:00 12/31/17 07:59 12/02/17 07:49 2.5 MG Prochlorperazine Edisylate 5 mg/ Syringe 5 ml @ 5 mls/min Q6H PRN IV 11/30/17 23:45 12/30/17 23:44 Ipratropium [place] (Atrovent 0.02% 0.5MG/2.5ML Neb) 0.5 mg Q6R INH 12/01/17 03:00 12/31/17 02:59 12/02/17 07:56 0.5 MG Levalbuterol (Xopenex 1.25MG/ 0.5ML Neb) 1.25 mg Q6R INH 12/01/17 03:00 12/31/17 02:59 12/02/17 07:57 1.25 MG Amiodarone HCl (Cordarone Tab) 200 mg DAILY PO 12/02/17 09:00 12/31/17 08:59 12/02/17 10:00 200 MG Digoxin (Lanoxin Tab) 0.125 mg MoWeFr@1600 PO 12/01/17 16:00 12/31/17 15:59 12/01/17 16:55 0.125 MG Ceftriaxone Sodium 2000 mg/ Dextrose 70 ml @ 140 mls/hr Q24H IV 12/01/17 20:00 12/08/17 19:59 12/01/17 20:30 140 MLS/HR Metoprolol Succinate (Toprol Xl Tab) 25 mg BID PO 12/01/17 21:00 12/31/17 20:59 Last 24 Hours Test 12/01/17 11:11 12/01/17 14:35 12/01/17 19:03 12/01/17 20:08 Bedside Glucose 99 mg/dl 89 mg/dl 179 mg/dl Test 12/02/17 03:54 12/02/17 07:20 White Blood Count 11.89 K/uL Red Blood Count 3.41 M/uL Hemoglobin 10.1 g/dL Hematocrit 33.1 % Mean Corpuscular Volume 97.1 fL Mean Corpuscular Hemoglobin 29.6 pg Mean Corpuscular Hemoglobin Concent 30.5 g/dl Platelet Count 132 K/uL Mean Platelet Volume 10.4 fL Neutrophils (%) (Auto) 82.6 % Lymphocytes (%) (Auto) 5.5 % Monocytes (%) (Auto) 9.6 % Eosinophils (%) (Auto) 1.1 % Basophils (%) (Auto) 0.3 % Neutrophils # (Auto) 9.82 K/uL Lymphocytes # (Auto) 0.65 K/uL Monocytes # (Auto) 1.14 K/uL Eosinophils # (Auto) 0.13 K/uL Basophils # (Auto) 0.04 K/uL RDW Standard Deviation 57.3 fL RDW Coefficient of Variation 16.4 % Immature Granulocyte % (Auto) 0.9 % Immature Granulocyte # (Auto) 0.11 K/uL Nucleated RBC Absolute Count (auto) 0.08 K/uL Nucleated Red Blood Cells % 0.7 % Sodium Level 134 mmol/L Potassium Level 3.6 mmol/L Chloride Level 98 mmol/L Carbon Dioxide Level 28 mmol/L Anion Gap 8.0 mmol/L Blood Urea Nitrogen 39 mg/dl Creatinine 5.09 mg/dl Est Creatinine Clear Calc Drug Dose 14.7 ml/min Estimated GFR () 11.1 Estimated GFR (Non- 9.6 BUN/Creatinine Ratio 7.6 Random Glucose 138 mg/dl Calcium Level 8.0 mg/dl Phosphorus Level 4.9 mg/dl Magnesium Level 2.0 mg/dl Bedside Glucose 118 mg/dl Date/Time Source Procedure Growth Status 12/01/17 10:52 Blood Blood Culture Pending Received Assessment & Plan 87 year old male admitted 11/30 to ICU after presenting w/ acutely worsened chronic hypotension and volume overload w/ concern evaluation for infectious processes also underway. 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 He is midodrine dependent as an outpatient. 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
[2017-12-02] MEDS ORDERED: EPOETIN ALFA 10,000 UNITS/ML VIAL IV. ONE (10:15)
[2017-12-02] MEDS: ALBUMIN HUMAN 25% 12.5 GM/50 ML VIAL IV SCH ×4 (10:35→20:41)
[2017-12-02] MEDS ORDERED: DIGOXIN 0.25 MG TAB PO ONE (11:00)
[2017-12-02] MEDS: CALCIUM ACETATE 667MG GELCAP PO SCH ×2 (11:30→16:45)
--- NOTE | 2017-12-02 11:35 | PROGRESS NOTE ---
DATE: 12/02/2017 The patient seen and examined. Chart, medications, telemetry reviewed. SUBJECTIVE: The patient feels better today. Breathing much easier. Heart rates still trending high at times but running in the 90s. Currently, while sitting, blood pressures still trending lower, but have increased from baseline, tolerated dialysis yesterday, anticipated further dialysis today. OBJECTIVE: VITAL SIGNS: Heart rate is 90-100, blood pressure 91/49, O2 saturation is 92% on 3 L nasal cannula. NECK: Thick. There is no distinct jugular venous distention. LUNGS: Reveal crackles and diminished breath sounds at the bases. CARDIOVASCULAR: Irregularly irregular. There is no S3 gallop. ABDOMEN: Soft. EXTREMITIES: Reveal 2+ lower extremity edema, but improved. LABORATORY DATA: Sodium is 134, potassium is 3.6, chloride is 98, bicarbonate is 28, hemoglobin is 10.1. Chest x-ray reveals slight improvement in intravascular plethora. EKG reveals atrial fibrillation with ventricular ectopic beats, left bundle branch block, rate 91. Telemetry revealed no pauses. IMPRESSION: An 87-year-old male with complex history is well outlined, presents with acute volume overload secondary to poor tolerance of dialysis with hypotension, history of chronic ischemic heart disease, left ventricular dysfunction, and persistent atrial fibrillation. RECOMMENDATIONS: As prior we have reduced medication to allow higher blood pressure. Digoxin has been added to control heart rates. Additional dose of digoxin will be given today, then continued 3 days weekly, metoprolol will be continued at reduced dosing as long as blood pressure allows. Amiodarone has been reduced to once per day. Other percent of potential medication changes could be discontinuation of Proscar, reduction in gabapentin if tolerated. Will follow up in the hospital. [facility]
[2017-12-02] MEDS ORDERED: NURSING VERBAL MED ORDER ONE (13:30)
[2017-12-02] MEDS: DOXYCYCLINE IV 100 MG in DEXTROSE 5% 100ML 100 ML IV SCH ×2 (14:36→23:33)
--- NOTE | 2017-12-02 18:22 | Progress Note ---
Medicine Progress Note Date & Time of Visit: December 02, 2017 at 13:45. Subjective 87-year-old man presented with shortness of breath secondary to volume overload. He presented to the ER after hemodialysis reporting lightheadedness and dizziness for the last week and was found to have systolic blood pressure of 60 on arrival. BP unresponsive to fluid administration, transferred to ICU for possible shock. No pressors were needed, however. Tolerated BIPAP and was weaned to nasal canula after Lasix and HD session with removal of fluid. The patient is currently s/p HD session today where 2900 mls were removed and he reports feeling well without any symptoms at this time. He feels that his breathing is better and his symptoms are improved since admission. He is tolerating PO. Objective Last 8 Hrs Date Time Temp Pulse Resp B/P (MAP) Pulse Ox O2 Delivery O2 Flow Rate FiO2 12/02/17 13:30 90 94/59 12/02/17 13:00 83 107/48 12/02/17 12:30 92 106/51 12/02/17 12:00 87 101/56 12/02/17 11:30 86 114/51 12/02/17 11:00 85 105/52 12/02/17 10:30 85 113/58 12/02/17 10:25 36.5 87 116/45 (68) 12/02/17 10:00 92 28 91/49 (63) 92 Nasal Cannula 3.0 12/02/17 08:00 Nasal Cannula 3.0 12/02/17 08:00 36.8 83 26 88/41 (57) 100 Nasal Cannula 3.0 12/02/17 07:57 80 18 96 Nasal Cannula 2.5 12/02/17 07:00 86 18 88/47 (61) 96 Nasal Cannula 3.0 Physical Exam: GEN: obese, in no acute distress, alert and appropriate,NC in place, no increased work of breathing or conversational dyspnea is present. HEENT: NC/AT, normal sclerae CARDIO: reg rate, S1/2 heard without m/g/r, +HD catheter to R chest LUNGS: CTA bilaterally, no crackles, rales or wheezes, good diaphragmatic excursion ABD: soft, non-tender, non-distended, no rebound or guarding EXTREMITY: RP and DP palpable 2+ bilat, no LE swelling or edema, extremities are warm and well-perfused. +fistula on LUE, palpable thrill NEURO: CN 2-12 grossly intact MUSC: moves all extremities equally, no gross focal deficits. SKIN: warm and dry Laboratory Results: 12/02/17 03:54 Red Blood Count 3.41, Mean Corpuscular Volume 97.1, Mean Corpuscular Hemoglobin 29.6, Mean Corpuscular Hemoglobin Concent 30.5, Mean Platelet Volume 10.4, Neutrophils (%) (Auto) 82.6, Lymphocytes (%) (Auto) 5.5, Monocytes (%) (Auto) 9.6, Eosinophils (%) (Auto) 1.1, Basophils (%) (Auto) 0.3, Neutrophils # (Auto) 9.82, Lymphocytes # (Auto) 0.65, Monocytes # (Auto) 1.14, Eosinophils # (Auto) 0.13, Basophils # (Auto) 0.04 12/02/17 03:54 Test 11/30/17 19:00 11/30/17 19:09 11/30/17 19:43 11/30/17 20:34 Estimated Average Glucose 117 mg/dl Hemoglobin A1c 5.7 % (4.5-5.6) Total Bilirubin 0.4 mg/dl (0.2-1) Aspartate Amino Transf (AST/SGOT) 7 U/L (15-37) Alanine Aminotransferase (ALT/SGPT) 14 U/L (12-78) Alkaline Phosphatase 66 U/L (45-117) Total Protein 7.4 gm/dl (6.4-8.2) Albumin 3.0 gm/dl (3.4-5.0) Globulin 4.4 gm/dl (2.5-4.0) Albumin/Globulin Ratio 0.7 (0.9-2) Bedside Lactic Acid Venous 1.18 mmol/L (0.90-1.70) Urine Color BROWN Urine Appearance TURBID (CLEAR) Urine pH 5.5 (4.5-7.5) Urine Specific Rebuck 1.025 (1.000-1.030) Urine Protein 2+ (NEG) Urine Glucose (UA) NEG (NEG) Urine Ketones TRACE (NEG) Urine Occult Blood 3+ (NEG) Urine Nitrite NEG (NEG) Urine Bilirubin NEG (NEG) Urine Urobilinogen NEG (NEG) Urine Leukocyte Esterase NEG (NEG) Urine RBC >30 /hpf (0-4) Urine WBC 10-30 /hpf (0-5) Urine Epithelial Cells 10-20 /lpf (0-5) Urine Bacteria 1+ (NEG) Urine Hyaline Casts 10-30 /lpf (0-5) Arterial Blood pH 7.34 (7.35-7.45) Arterial Blood Partial Pressure CO2 54 mmHg (35-46) Arterial Blood Partial Pressure O2 104 mm/Hg (80-95) Arterial Blood HCO3 29 mmol/L (19-24) Arterial Blood Oxygen Saturation 96.0 % (90-95) Arterial Blood Base Excess 2.4 mEq/L (-9-1.8) Arterial Blood Gas Delivery 50% Jay Test POS (POS) Procalcitonin 1.10 ng/ml (0-0.5) Test 11/30/17 23:25 12/01/17 04:00 12/01/17 05:16 12/01/17 05:58 Total Creatine Kinase 22 U/L (39-308) Creatine Kinase MB 2.1 ng/ml (0.5-3.6) Creatine Kinase MB Ratio 9.5 (0-3.0) Random Cortisol 9.71 mcg/dl Prothrombin Time 11.7 SECONDS (9.0-12.0) Prothromb Time International Ratio 1.1 (0.9-1.1) Activated Partial Thromboplast Time 31.3 SECONDS (21.0-31.0) Partial Thromboplastin Ratio 1.2 Troponin I < 0.015 ng/ml (0-0.045) Blood Gas Sample Site R Radial Bedside Blood Gas pH (LAB) 7.28 (7.35-7.45) Bedside Blood Gas pCO2 (LAB) 67 mmHg (35-46) Bedside Blood Gas pO2 (LAB) 66 mmHg (80-95) Bedside Blood Gas HCO3 (LAB) 32 meq/L (19-24) Bedside Blood Gas Total CO2 34 mEq/l (24-31) Bedside Blood Gas Base Excess (LAB) 5.0 meq/L (-9-1.8) Bedside Blood Gas O2 Saturation 89.0 % (90-95) Jay Test Pass Oxygen Delivery Device BIPAP Bedside Oxygen Rate (breaths/min) 24 Bedside FiO2 35 % Blood Gas IPAP 12 Lactic Acid Level 1.0 mmol/L (0.4-2.0) Test 12/02/17 03:54 12/02/17 16:21 White Blood Count 11.89 K/uL (4.8-10.8) Red Blood Count 3.41 M/uL (4.7-6.1) Hemoglobin 10.1 g/dL (14.0-18.0) Hematocrit 33.1 % (42-52) Mean Corpuscular Volume 97.1 fL (80-100) Mean Corpuscular Hemoglobin 29.6 pg (25-34) Mean Corpuscular Hemoglobin Concent 30.5 g/dl (32-36) Platelet Count 132 K/uL (130-400) Mean Platelet Volume 10.4 fL (7.4-10.4) Neutrophils (%) (Auto) 82.6 % Lymphocytes (%) (Auto) 5.5 % Monocytes (%) (Auto) 9.6 % Eosinophils (%) (Auto) 1.1 % Basophils (%) (Auto) 0.3 % Neutrophils # (Auto) 9.82 K/uL (1.4-6.5) Lymphocytes # (Auto) 0.65 K/uL (1.2-3.4) Monocytes # (Auto) 1.14 K/uL (0.11-0.59) Eosinophils # (Auto) 0.13 K/uL (0-0.5) Basophils # (Auto) 0.04 K/uL (0-0.2) RDW Standard Deviation 57.3 fL (36.4-46.3) RDW Coefficient of Variation 16.4 % (11.5-14.5) Immature Granulocyte % (Auto) 0.9 % Immature Granulocyte # (Auto) 0.11 K/uL (0.00-0.02) Nucleated RBC Absolute Count (auto) 0.08 K/uL (0-0) Nucleated Red Blood Cells % 0.7 % Anion Gap 8.0 mmol/L (3-11) Est Creatinine Clear Calc Drug Dose 14.7 ml/min Estimated GFR () 11.1 Estimated GFR (Non- 9.6 BUN/Creatinine Ratio 7.6 (10-20) Calcium Level 8.0 mg/dl (8.5-10.1) Phosphorus Level 4.9 mg/dl (2.5-4.9) Magnesium Level 2.0 mg/dl (1.8-2.4) Bedside Glucose 165 mg/dl (70-99) Date/Time Source Procedure Growth Status 12/01/17 10:52 Blood Blood Culture Pending Received 11/30/17 22:19 Nasal MRSA DNA Surveillance Screen - Final Specimen Negative for MRSA by DNA Probe Complete 11/30/17 19:43 Urine,Catheterized Urine Culture - Final NO GROWTH - LESS THAN 1,000 COLONIES/ML Complete Last 24 Hours Test 12/01/17 14:35 12/01/17 19:03 12/01/17 20:08 12/02/17 03:54 Bedside Glucose 89 mg/dl 179 mg/dl White Blood Count 11.89 K/uL Red Blood Count 3.41 M/uL Hemoglobin 10.1 g/dL Hematocrit 33.1 % Mean Corpuscular Volume 97.1 fL Mean Corpuscular Hemoglobin 29.6 pg Mean Corpuscular Hemoglobin Concent 30.5 g/dl Platelet Count 132 K/uL Mean Platelet Volume 10.4 fL Neutrophils (%) (Auto) 82.6 % Lymphocytes (%) (Auto) 5.5 % Monocytes (%) (Auto) 9.6 % Eosinophils (%) (Auto) 1.1 % Basophils (%) (Auto) 0.3 % Neutrophils # (Auto) 9.82 K/uL Lymphocytes # (Auto) 0.65 K/uL Monocytes # (Auto) 1.14 K/uL Eosinophils # (Auto) 0.13 K/uL Basophils # (Auto) 0.04 K/uL RDW Standard Deviation 57.3 fL RDW Coefficient of Variation 16.4 % Immature Granulocyte % (Auto) 0.9 % Immature Granulocyte # (Auto) 0.11 K/uL Nucleated RBC Absolute Count (auto) 0.08 K/uL Nucleated Red Blood Cells % 0.7 % Sodium Level 134 mmol/L Potassium Level 3.6 mmol/L Chloride Level 98 mmol/L Carbon Dioxide Level 28 mmol/L Anion Gap 8.0 mmol/L Blood Urea Nitrogen 39 mg/dl Creatinine 5.09 mg/dl Est Creatinine Clear Calc Drug Dose 14.7 ml/min Estimated GFR () 11.1 Estimated GFR (Non- 9.6 BUN/Creatinine Ratio 7.6 Random Glucose 138 mg/dl Calcium Level 8.0 mg/dl Phosphorus Level 4.9 mg/dl Magnesium Level 2.0 mg/dl Test 12/02/17 07:20 Bedside Glucose 118 mg/dl Assessment & Plan 87-year-old man presented with shortness of breath secondary to volume overload. He presented to the ER after hemodialysis reporting lightheadedness and dizziness for the last week and was found to have systolic blood pressure of 60 on arrival. BP unresponsive to fluid administration, transferred to ICU for possible shock. No pressors were needed, however. Tolerated BIPAP and was weaned to nasal canula after Lasix and HD session with removal of fluid. The patient is currently s/p HD session today where 2900 mls were removed and he reports feeling well without any symptoms at this time. He feels that his breathing is better and his symptoms are improved since admission. He is tolerating PO. 1. Volume overload in setting of known ischemic cardiomyopathy with ejection fraction 35-40% patient is also on hemodialysis. Cont hemodialysis per Nephrology. Digoxin added by cardiology, amiodarone reduced, metoprolol was held in setting of hypotension. Appreciate cardiology recs. 2. Sepsis secondary to possible aspiration pneumonia-Zosyn was started in the ER, and Zosyn and doxycycline were continued in the ICU for coverage. Patient denies any current infectious symptoms. Blood cultures returned negative and he has been doing well clinically. Will cont antibiotics for one more day and stop if no cough, fevers, chills or breathing issues. Speech therapy consult was ordered to rule out aspiration. 3. Hypotension-resolved. Cont midodrine. 4. Hypoxia secondary to #1-improved. Repeat CXR this morning reveals an improvement from admission with residual pulmonary edema on the R base. 5. Coronary artery disease status post stenting-appears stable, no chest pain. Serial cardiac enzymes are negative. No EKG changes consistent with ischemia. Continue medical management. 6. Atrial fibrillation-continue amiodarone at reduced dose per cardiology, anticoagulated on apixaban. 7. DM2-well controlled, continue insulin sliding scale with carb coverage while hospitalized. Recent A1c in July was 6.9. 8. Hx of heparin-induced thrombocytopenia. 9. 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 10. Obesity-PT/OT evaluation to assess ambulation. 11. Anemia of CKD DVT prophylaxis-apixaban Full code Disposition-downgraded to telemetry. Daysi Page DO [facility] hospitalist Consultants: ICU-[facility] Current Inpatient Medications: Current Inpatient Medications Medications (Trade) Dose Ordered Sig/Ronak Route Start Time Stop Time Status Last Admin Dose Admin Ipratropium Center (Atrovent 0.02% 0.5MG/2.5ML Neb) 0.5 mg Q4H PRN INH 11/30/17 20:30 12/30/17 20:29 Levalbuterol (Xopenex 1.25MG/ 0.5ML Neb) 1.25 mg Q4H PRN INH 11/30/17 20:30 12/30/17 20:29 Acetaminophen (Tylenol Tab) 650 mg Q4H PRN PO 11/30/17 22:00 12/30/17 21:59 Nitroglycerin (Nitrostat Tab) 0.4 mg UD PRN SL 11/30/17 22:00 12/30/17 21:59 Miscellaneous Information (Icu Protocol For Hyperglycemia) 1 ea PRN PRN N/A 11/30/17 22:00 12/02/17 21:59 Insulin Aspart (novoLOG ASPART) SLIDING SCALE If C... ACHS SC 12/01/17 06:45 12/31/17 06:59 Glucose (Glucose 40% Gel) 15-30 GRAMS 15 GRAMS... UD PRN PO 11/30/17 22:00 12/30/17 21:59 Glucose (Glucose Chew Tab) 4-8 Tablets 4 Tabl... UD PRN PO 11/30/17 22:00 12/30/17 21:59 Dextrose (Dextrose 50% 50ML Syringe) 25-50ML 25ML FOR ... UD PRN IV 11/30/17 22:00 12/30/17 21:59 Glucagon (Glucagon Inj) 1 mg UD PRN SQ 11/30/17 22:00 12/30/17 21:59 Carbohydrates (Carbohydrates For Hypoglycemia) 15-30 GRAMS 15 grams if BSG 54-69... UD PRN PO 11/30/17 22:00 12/30/17 21:59 Pantoprazole Sodium 40 mg/ Syringe 10 ml @ 5 mls/min DAILY IV 12/01/17 09:00 12/31/17 08:59 12/01/17 08:33 5 MLS/MIN Miscellaneous Information (Icu Protocol For Hyperglycemia) 1 ea PRN PRN N/A 11/30/17 23:00 12/02/17 22:59 Doxycycline Hyclate 100 mg/ Dextrose 110 ml @ 50 mls/hr BID@0000,1200 IV 12/01/17 00:00 12/08/17 00:00 12/01/17 23:22 50 MLS/HR Apixaban (Eliquis Tab) 2.5 mg BID PO 12/01/17 09:00 12/31/17 08:59 12/02/17 07:49 2.5 MG Aspirin (Ecotrin Tab) 81 mg QAM PO 12/01/17 09:00 12/31/17 08:59 12/02/17 07:49 81 MG Docusate Sodium (coLACE CAP) 100 mg BID PO 12/01/17 09:00 12/31/17 08:59 12/02/17 07:49 100 MG Finasteride (Proscar Tab) 5 mg HS PO 12/01/17 21:00 12/31/17 20:59 12/01/17 20:22 5 MG Salmeterol Xinafoate/ Fluticasone (Advair Diskus 250/50 Inh) 1 puff BID INH 12/01/17 09:00 12/31/17 08:59 12/02/17 07:49 1 PUFF Gabapentin (Neurontin Cap) 300 mg HS PO 12/01/17 21:00 12/31/17 20:59 12/01/17 20:22 300 MG Oxycodone HCl (Roxicodone Immediate Rel Tab) 5 mg Q4H PRN PO 11/30/17 23:45 12/14/17 23:44 Simvastatin (Zocor Tab) 20 mg QPM PO 12/01/17 21:00 12/31/17 20:59 12/01/17 20:24 20 MG Tramadol HCl (Ultram Tab) 50 mg Q8H PRN PO 11/30/17 23:45 12/30/17 23:44 Polyethylene (Miralax Powder Packet) 17 gm DAILY PRN PO 11/30/17 23:45 12/30/17 23:44 Midodrine (Proamatine Tab) 2.5 mg TID@0800,1300,1800 PO 12/01/17 08:00 12/31/17 07:59 12/02/17 07:49 2.5 MG Prochlorperazine Edisylate 5 mg/ Syringe 5 ml @ 5 mls/min Q6H PRN IV 11/30/17 23:45 12/30/17 23:44 Ipratropium Center (Atrovent 0.02% 0.5MG/2.5ML Neb) 0.5 mg Q6R INH 12/01/17 03:00 12/31/17 02:59 12/02/17 07:56 0.5 MG Levalbuterol (Xopenex 1.25MG/ 0.5ML Neb) 1.25 mg Q6R INH 12/01/17 03:00 12/31/17 02:59 12/02/17 07:57 1.25 MG Amiodarone HCl (Cordarone Tab) 200 mg DAILY PO 12/02/17 09:00 12/31/17 08:59 12/02/17 10:00 200 MG Digoxin (Lanoxin Tab) 0.125 mg MoWeFr@1600 PO 12/01/17 16:00 12/31/17 15:59 12/01/17 16:55 0.125 MG Ceftriaxone Sodium 2000 mg/ Dextrose 70 ml @ 140 mls/hr Q24H IV 12/01/17 20:00 12/08/17 19:59 12/01/17 20:30 140 MLS/HR Metoprolol Succinate (Toprol Xl Tab) 25 mg BID PO 12/01/17 21:00 12/31/17 20:59 Albumin Human (Albumin 25%) 12.5 gm Q90M IV 12/02/17 10:15 12/02/17 16:00 12/02/17 12:12 12.5 GM Calcium Acetate (Phoslo Cap) 667 mg TIDM PO 12/02/17 11:30 01/01/18 11:29 Miscellaneous Information (Nursing Verbal Med Order) 1 ea ONE ONCE N/A 12/02/17 13:30 12/02/17 13:31 UNV
[2017-12-02] MEDS: CEFTRIAXONE SOD INJ 2000 MG in DEXTROSE 5% 50ML IV SCH (19:50)
[2017-12-02] MEDS: FINASTERIDE 5 MG TAB PO SCH (20:10)
[2017-12-02] MEDS: GABAPENTIN 300 MG CAP PO SCH (20:10)
[2017-12-02] MEDS: SIMVASTATIN 20 MG TAB PO SCH (20:11)
[2017-12-03] VITALS (10 sets, daily range): BP systolic 92–120; BP diastolic 50–64; PULSE 75–119; TEMP 36.2–36.7; O2SAT 90–99
[2017-12-03] MEDS: IPRATROPIUM BROMIDE NEB SOLN 0.02% 2.5 ML VIAL INH SCH ×2 (01:46→06:58)
[2017-12-03] MEDS: LEVALBUTEROL 1.25MG/0.5ML NEB INH SCH ×2 (01:46→06:58)
[2017-12-03 06:22] LABS: CALCIUM 8.2 mg/dl (8.5-10.1); CREATININE 4.44 mg/dl (0.60-1.40)
[2017-12-03 06:23] LABS: PHOSPHORUS 4.6 mg/dl (2.5-4.9)
[2017-12-03] MEDS: DOCUSATE SODIUM 100 MG CAP PO SCH ×2 (07:43→20:22)
[2017-12-03] MEDS: CALCIUM ACETATE 667MG GELCAP PO SCH ×3 (07:43→16:44)
[2017-12-03] MEDS: METOPROLOL SUCC 25MG EXT REL TAB PO SCH ×2 (07:43→20:24)
[2017-12-03] MEDS: ASPIRIN 81 MG ECTAB PO SCH (07:44)
[2017-12-03] MEDS: FLUTICASONE/SALMETEROL 250/50 (ADVAIR) 14 PUFF/1 INHALER INH SCH ×2 (07:44→20:23)
[2017-12-03] MEDS: MIDODRINE 2.5 MG TAB PO SCH ×3 (07:44→16:44)
[2017-12-03] MEDS: APIXABAN 2.5 MG TAB PO SCH ×2 (07:44→20:23)
[2017-12-03] MEDS: AMIODARONE 200 MG TAB PO SCH (07:44)
[2017-12-03] MEDS: INSULIN ASPART 100 UNITS/ML 3 ML PEN SC SCH ×4 (07:45→20:21)
--- NOTE | 2017-12-03 10:25 | PROGRESS NOTE ---
DATE: 12/03/2017 The patient seen and examined. Chart, medications, telemetry reviewed. SUBJECTIVE: The patient feels tired, did ambulate in the hallway earlier today with better tolerance and leg strength. Denies any chest pains. Notes no tachy palpitations. Pulmonary status is improved slowly. He did tolerate dialysis yesterday for a nearly 3 L removal. Atrial fibrillation rates are intermittently elevated, but generally better controlled. He was able to take Toprol today. OBJECTIVE: VITAL SIGNS: Heart rate is 86, blood pressure is 101/51 this morning. HEENT EXAMINATION: Normocephalic, atraumatic. NECK: Thick. There is no jugular venous distention at 30 degrees. LUNGS: Reveal diminished breath sounds, but generally clear bases. CARDIOVASCULAR EXAMINATION: Irregularly irregular, 1/6 systolic murmur, there is no diastolic murmur. ABDOMEN: Soft with mild distention. EXTREMITIES: Reveal 1-2+ lower extremity edema. LABORATORY DATA: White cell count is 11.8, hemoglobin is 10.1. Sodium is 135, potassium is 4.0, chloride is 99, bicarb is 28. IMPRESSION: This is an 87-year-old male with issues as follows: 1. Chronic atrial fibrillation with difficult to control ventricular response rates, on rate control with amiodarone, metoprolol, and now with digoxin added. I will reduce metoprolol. 2. Hypotension limiting dialysis, with reduction of amiodarone, metoprolol dosing as noted while maintaining adequate rate control. 2. End-stage renal disease, on chronic dialysis. 3. History of ischemic cardiomyopathy. PLAN: Continue current medications as prescribed, low-dose digoxin on Monday, Monday, Monday, Toprol 25 mg 2 times b.i.d., amiodarone 200 mg p.o. every day.
[2017-12-03] MEDS: DOXYCYCLINE IV 100 MG in DEXTROSE 5% 100ML 100 ML IV SCH ×2 (11:41→23:18)
--- NOTE | 2017-12-03 18:16 | Progress Note ---
Medicine Progress Note Date & Time of Visit: December 03, 2017 at 13:53. Subjective 87-year-old man presented with shortness of breath secondary to volume overload. He presented to the ER after hemodialysis reporting lightheadedness and dizziness for the last week and was found to have systolic blood pressure of 60 on arrival. BP unresponsive to fluid administration, transferred to ICU for possible shock. No pressors were needed, however. Tolerated BIPAP and was weaned to nasal canula after Lasix and HD session with removal of fluid. Volume status has been corrected and he feels that his breathing is better and his symptoms are improved since admission. He is tolerating PO. He has no symptoms at this time. Objective Last 8 Hrs Date Time Temp Pulse Resp B/P (MAP) Pulse Ox O2 Delivery O2 Flow Rate FiO2 12/03/17 12:00 Nasal Cannula 2.0 12/03/17 11:15 36.6 85 22 96/50 (65) 95 Nasal Cannula 2.0 12/03/17 08:00 Nasal Cannula 2.0 12/03/17 07:00 119 24 90 Nasal Cannula 2.0 12/03/17 06:42 36.6 96 22 101/51 (68) 91 Nasal Cannula 2.0 Humidified Oxygen Physical Exam: GEN: obese, in no acute distress, alert and appropriate, NC in place, no increased work of breathing or conversational dyspnea is present. HEENT: NC/AT, normal sclerae CARDIO: reg rate, S1/2 heard without m/g/r, +HD catheter to R chest LUNGS: CTA bilaterally, no crackles, rales or wheezes, good diaphragmatic excursion ABD: soft, non-tender, non-distended, no rebound or guarding EXTREMITY: RP and DP palpable 2+ bilat, no LE swelling or edema, extremities are warm and well-perfused. +fistula on LUE, palpable thrill NEURO: CN 2-12 grossly intact MUSC: moves all extremities equally, no gross focal deficits. SKIN: warm and dry Laboratory Results: 12/02/17 03:54 Red Blood Count 3.41, Mean Corpuscular Volume 97.1, Mean Corpuscular Hemoglobin 29.6, Mean Corpuscular Hemoglobin Concent 30.5, Mean Platelet Volume 10.4, Neutrophils (%) (Auto) 82.6, Lymphocytes (%) (Auto) 5.5, Monocytes (%) (Auto) 9.6, Eosinophils (%) (Auto) 1.1, Basophils (%) (Auto) 0.3, Neutrophils # (Auto) 9.82, Lymphocytes # (Auto) 0.65, Monocytes # (Auto) 1.14, Eosinophils # (Auto) 0.13, Basophils # (Auto) 0.04 12/03/17 05:10 Test 11/30/17 19:00 11/30/17 19:09 11/30/17 19:43 11/30/17 20:34 Estimated Average Glucose 117 mg/dl Hemoglobin A1c 5.7 % (4.5-5.6) Total Bilirubin 0.4 mg/dl (0.2-1) Aspartate Amino Transf (AST/SGOT) 7 U/L (15-37) Alanine Aminotransferase (ALT/SGPT) 14 U/L (12-78) Alkaline Phosphatase 66 U/L (45-117) Total Protein 7.4 gm/dl (6.4-8.2) Albumin 3.0 gm/dl (3.4-5.0) Globulin 4.4 gm/dl (2.5-4.0) Albumin/Globulin Ratio 0.7 (0.9-2) Bedside Lactic Acid Venous 1.18 mmol/L (0.90-1.70) Urine Color BROWN Urine Appearance TURBID (CLEAR) Urine pH 5.5 (4.5-7.5) Urine Specific [place] 1.025 (1.000-1.030) Urine Protein 2+ (NEG) Urine Glucose (UA) NEG (NEG) Urine Ketones TRACE (NEG) Urine Occult Blood 3+ (NEG) Urine Nitrite NEG (NEG) Urine Bilirubin NEG (NEG) Urine Urobilinogen NEG (NEG) Urine Leukocyte Esterase NEG (NEG) Urine RBC >30 /hpf (0-4) Urine WBC 10-30 /hpf (0-5) Urine Epithelial Cells 10-20 /lpf (0-5) Urine Bacteria 1+ (NEG) Urine Hyaline Casts 10-30 /lpf (0-5) Arterial Blood pH 7.34 (7.35-7.45) Arterial Blood Partial Pressure CO2 54 mmHg (35-46) Arterial Blood Partial Pressure O2 104 mm/Hg (80-95) Arterial Blood HCO3 29 mmol/L (19-24) Arterial Blood Oxygen Saturation 96.0 % (90-95) Arterial Blood Base Excess 2.4 mEq/L (-9-1.8) Arterial Blood Gas Delivery 50% Jay Test POS (POS) Procalcitonin 1.10 ng/ml (0-0.5) Test 11/30/17 23:25 12/01/17 04:00 12/01/17 05:16 12/01/17 05:58 Total Creatine Kinase 22 U/L (39-308) Creatine Kinase MB 2.1 ng/ml (0.5-3.6) Creatine Kinase MB Ratio 9.5 (0-3.0) Random Cortisol 9.71 mcg/dl Prothrombin Time 11.7 SECONDS (9.0-12.0) Prothromb Time International Ratio 1.1 (0.9-1.1) Activated Partial Thromboplast Time 31.3 SECONDS (21.0-31.0) Partial Thromboplastin Ratio 1.2 Troponin I < 0.015 ng/ml (0-0.045) Blood Gas Sample Site R Radial Bedside Blood Gas pH (LAB) 7.28 (7.35-7.45) Bedside Blood Gas pCO2 (LAB) 67 mmHg (35-46) Bedside Blood Gas pO2 (LAB) 66 mmHg (80-95) Bedside Blood Gas HCO3 (LAB) 32 meq/L (19-24) Bedside Blood Gas Total CO2 34 mEq/l (24-31) Bedside Blood Gas Base Excess (LAB) 5.0 meq/L (-9-1.8) Bedside Blood Gas O2 Saturation 89.0 % (90-95) Jay Test Pass Oxygen Delivery Device BIPAP Bedside Oxygen Rate (breaths/min) 24 Bedside FiO2 35 % Blood Gas IPAP 12 Lactic Acid Level 1.0 mmol/L (0.4-2.0) Test 12/02/17 03:54 12/03/17 05:10 12/03/17 16:33 White Blood Count 11.89 K/uL (4.8-10.8) Red Blood Count 3.41 M/uL (4.7-6.1) Hemoglobin 10.1 g/dL (14.0-18.0) Hematocrit 33.1 % (42-52) Mean Corpuscular Volume 97.1 fL (80-100) Mean Corpuscular Hemoglobin 29.6 pg (25-34) Mean Corpuscular Hemoglobin Concent 30.5 g/dl (32-36) Platelet Count 132 K/uL (130-400) Mean Platelet Volume 10.4 fL (7.4-10.4) Neutrophils (%) (Auto) 82.6 % Lymphocytes (%) (Auto) 5.5 % Monocytes (%) (Auto) 9.6 % Eosinophils (%) (Auto) 1.1 % Basophils (%) (Auto) 0.3 % Neutrophils # (Auto) 9.82 K/uL (1.4-6.5) Lymphocytes # (Auto) 0.65 K/uL (1.2-3.4) Monocytes # (Auto) 1.14 K/uL (0.11-0.59) Eosinophils # (Auto) 0.13 K/uL (0-0.5) Basophils # (Auto) 0.04 K/uL (0-0.2) RDW Standard Deviation 57.3 fL (36.4-46.3) RDW Coefficient of Variation 16.4 % (11.5-14.5) Immature Granulocyte % (Auto) 0.9 % Immature Granulocyte # (Auto) 0.11 K/uL (0.00-0.02) Nucleated RBC Absolute Count (auto) 0.08 K/uL (0-0) Nucleated Red Blood Cells % 0.7 % Anion Gap 8.0 mmol/L (3-11) Est Creatinine Clear Calc Drug Dose 17.1 ml/min Estimated GFR () 13.1 Estimated GFR (Non- 11.3 BUN/Creatinine Ratio 6.5 (10-20) Calcium Level 8.2 mg/dl (8.5-10.1) Phosphorus Level 4.6 mg/dl (2.5-4.9) Magnesium Level 1.8 mg/dl (1.8-2.4) Iron Level 49 mcg/dl (35-175) Transferrin 136 mg/dl (200-360) Transferrin % Saturation 25 % (20-50) Bedside Glucose 142 mg/dl (70-99) Date/Time Source Procedure Growth Status 12/01/17 10:52 Blood Blood Culture - Preliminary NO GROWTH TO DATE. Resulted 11/30/17 22:19 Nasal MRSA DNA Surveillance Screen - Final Specimen Negative for MRSA by DNA Probe Complete 11/30/17 19:43 Urine,Catheterized Urine Culture - Final NO GROWTH - LESS THAN 1,000 COLONIES/ML Complete Last 24 Hours Test 12/02/17 14:40 12/02/17 16:21 12/02/17 20:31 12/03/17 05:10 Bedside Glucose 98 mg/dl 165 mg/dl 162 mg/dl Sodium Level 135 mmol/L Potassium Level 4.0 mmol/L Chloride Level 99 mmol/L Carbon Dioxide Level 28 mmol/L Anion Gap 8.0 mmol/L Blood Urea Nitrogen 29 mg/dl Creatinine 4.44 mg/dl Est Creatinine Clear Calc Drug Dose 17.1 ml/min Estimated GFR () 13.1 Estimated GFR (Non- 11.3 BUN/Creatinine Ratio 6.5 Random Glucose 130 mg/dl Calcium Level 8.2 mg/dl Phosphorus Level 4.6 mg/dl Magnesium Level 1.8 mg/dl Iron Level 49 mcg/dl Transferrin 136 mg/dl Transferrin % Saturation 25 % Test 12/03/17 07:15 12/03/17 11:14 Bedside Glucose 140 mg/dl 229 mg/dl Assessment & Plan 87-year-old man presented with shortness of breath secondary to volume overload. He presented to the ER after hemodialysis reporting lightheadedness and dizziness for the last week and was found to have systolic blood pressure of 60 on arrival. BP unresponsive to fluid administration, transferred to ICU for possible shock. No pressors were needed, however. Tolerated BIPAP and was weaned to nasal canula after Lasix and HD session with removal of fluid. Volume status has been corrected and he feels that his breathing is better and his symptoms are improved since admission. He is tolerating PO. He has no symptoms at this time. 1. Volume overload in setting of known ischemic cardiomyopathy with ejection fraction 35-40% patient is also on hemodialysis. Cont hemodialysis per Nephrology. Digoxin added by cardiology, amiodarone reduced, metoprolol continued at 25mg BID. Appreciate cardiology recs. Will cont to monitor on telemetry for now while dig-loading and adjusting Toprol. 2. Sepsis secondary to possible aspiration pneumonia-Zosyn was started in the ER, and Zosyn and doxycycline were continued in the ICU for coverage. Patient denies any current infectious symptoms. Blood cultures returned negative and he has been doing well clinically. Will discontinue antibiotics at this time 3. Hypotension-resolved. Cont midodrine. 4. Hypoxia secondary to #1-improved. Repeat CXR yesterday reveals an improvement from admission with a small amount of residual pulmonary edema on the R base. 5. Coronary artery disease status post stenting-appears stable, no chest pain. Serial cardiac enzymes are negative. No EKG changes consistent with ischemia. Continue medical management. 6. Atrial fibrillation-continue amiodarone at reduced dose per cardiology, anticoagulated on apixaban. 7. DM2-well controlled, continue insulin sliding scale with carb coverage while hospitalized. Recent A1c in July was 6.9. 8. Hx of heparin-induced thrombocytopenia. 9. 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 10. Obesity-PT/OT evaluation to assess ambulation. 11. Anemia of CKD DVT prophylaxis-apixaban Full code Disposition-cont telemetry monitoring while dig loading and adjusting Torpol and amiodarone. PT evaluation recommends return home. Will await Cardiology clearance. [facility] Consultants: ICU-Kimberly Cardio-Antonino NephroCarleen Current Inpatient Medications: Current Inpatient Medications Medications (Trade) Dose Ordered Sig/Ronak Route Start Time Stop Time Status Last Admin Dose Admin Ipratropium [place] (Atrovent 0.02% 0.5MG/2.5ML Neb) 0.5 mg Q4H PRN INH 11/30/17 20:30 12/30/17 20:29 Levalbuterol (Xopenex 1.25MG/ 0.5ML Neb) 1.25 mg Q4H PRN INH 11/30/17 20:30 12/30/17 20:29 Acetaminophen (Tylenol Tab) 650 mg Q4H PRN PO 11/30/17 22:00 12/30/17 21:59 12/02/17 20:09 650 MG Nitroglycerin (Nitrostat Tab) 0.4 mg UD PRN SL 11/30/17 22:00 12/30/17 21:59 Insulin Aspart (novoLOG ASPART) SLIDING SCALE If C... ACHS SC 12/01/17 06:45 12/31/17 06:59 12/03/17 11:39 2 UNITS Glucose (Glucose 40% Gel) 15-30 GRAMS 15 GRAMS... UD PRN PO 11/30/17 22:00 12/30/17 21:59 Glucose (Glucose Chew Tab) 4-8 Tablets 4 Tabl... UD PRN PO 11/30/17 22:00 12/30/17 21:59 Dextrose (Dextrose 50% 50ML Syringe) 25-50ML 25ML FOR ... UD PRN IV 11/30/17 22:00 12/30/17 21:59 Glucagon (Glucagon Inj) 1 mg UD PRN SQ 11/30/17 22:00 12/30/17 21:59 Carbohydrates (Carbohydrates For Hypoglycemia) 15-30 GRAMS 15 grams if BSG 54-69... UD PRN PO 11/30/17 22:00 12/30/17 21:59 Doxycycline Hyclate 100 mg/ Dextrose 110 ml @ 50 mls/hr BID@0000,1200 IV 12/01/17 00:00 12/08/17 00:00 12/03/17 11:41 50 MLS/HR Apixaban (Eliquis Tab) 2.5 mg BID PO 12/01/17 09:00 12/31/17 08:59 12/03/17 07:44 2.5 MG Aspirin (Ecotrin Tab) 81 mg QAM PO 12/01/17 09:00 12/31/17 08:59 12/03/17 07:44 81 MG Docusate Sodium (coLACE CAP) 100 mg BID PO 12/01/17 09:00 12/31/17 08:59 12/03/17 07:43 100 MG Finasteride (Proscar Tab) 5 mg HS PO 12/01/17 21:00 12/31/17 20:59 12/02/17 20:10 5 MG Salmeterol Xinafoate/ Fluticasone (Advair Diskus 250/50 Inh) 1 puff BID INH 12/01/17 09:00 12/31/17 08:59 12/03/17 07:44 1 PUFF Gabapentin (Neurontin Cap) 300 mg HS PO 12/01/17 21:00 12/31/17 20:59 12/02/17 20:10 300 MG Oxycodone HCl (Roxicodone Immediate Rel Tab) 5 mg Q4H PRN PO 11/30/17 23:45 12/14/17 23:44 Simvastatin (Zocor Tab) 20 mg QPM PO 12/01/17 21:00 12/31/17 20:59 12/02/17 20:11 20 MG Tramadol HCl (Ultram Tab) 50 mg Q8H PRN PO 11/30/17 23:45 12/30/17 23:44 12/02/17 18:23 50 MG Polyethylene (Miralax Powder Packet) 17 gm DAILY PRN PO 11/30/17 23:45 12/30/17 23:44 Midodrine (Proamatine Tab) 2.5 mg TID@0800,1300,1800 PO 12/01/17 08:00 12/31/17 07:59 12/03/17 12:41 2.5 MG Prochlorperazine Edisylate 5 mg/ Syringe 5 ml @ 5 mls/min Q6H PRN IV 11/30/17 23:45 12/30/17 23:44 Amiodarone HCl (Cordarone Tab) 200 mg DAILY PO 12/02/17 09:00 12/31/17 08:59 12/03/17 07:44 200 MG Digoxin (Lanoxin Tab) 0.125 mg MoWeFr@1600 PO 12/01/17 16:00 12/31/17 15:59 12/01/17 16:55 0.125 MG Ceftriaxone Sodium 2000 mg/ Dextrose 70 ml @ 140 mls/hr Q24H IV 12/01/17 20:00 12/08/17 19:59 12/02/17 19:50 140 MLS/HR Metoprolol Succinate (Toprol Xl Tab) 25 mg BID PO 12/01/17 21:00 12/31/17 20:59 12/03/17 07:43 25 MG Calcium Acetate (Phoslo Cap) 667 mg TIDM PO 12/02/17 11:30 01/01/18 11:29 12/03/17 11:39 667 MG
[2017-12-03] MEDS: SIMVASTATIN 20 MG TAB PO SCH (20:22)
[2017-12-03] MEDS: FINASTERIDE 5 MG TAB PO SCH (20:22)
[2017-12-03] MEDS: GABAPENTIN 300 MG CAP PO SCH (20:23)
[2017-12-03] MEDS: CEFTRIAXONE SOD INJ 2000 MG in DEXTROSE 5% 50ML IV SCH (20:26)
[2017-12-04] VITALS (24 sets, daily range): BP systolic 84–133; BP diastolic 36–67; PULSE 67–100; TEMP 36.4–36.9; O2SAT 92–96
[2017-12-04 05:31] LABS: BASO % 0.4 %; BASO ABS # 0.04 K/uL (0-0.2); EOS % 2.4 %; EOS ABS # 0.23 K/uL (0-0.5); HEMATOCRIT 36.8 % (42-52); HEMOGLOBIN 11.2 g/dL (14.0-18.0); IG# 0.12 K/uL (0.00-0.02); LYMPH % 8.9 %; LYMPH ABS # 0.86 K/uL (1.2-3.4); MEAN CELL VOLUME 97.6 fL (80-100); MEAN CORPUSCULAR HEMOGLOBIN 29.7 pg (25-34); MEAN CORPUSCULAR HGB CONC 30.4 g/dl (32-36); MEAN PLATELET VOLUME 9.5 fL (7.4-10.4); MONO % 9.1 %; MONO ABS # 0.88 K/uL (0.11-0.59); NEUT ABS # 7.54 K/uL (1.4-6.5); PLATELET COUNT 125 K/uL (130-400); RED CELL DISTRIBUTION WIDTH CV 16.8 % (11.5-14.5); RED CELL DISTRIBUTION WIDTH SD 58.6 fL (36.4-46.3); WHITE BLOOD COUNT 9.67 K/uL (4.8-10.8)
--- NOTE | 2017-12-04 06:07 | Nephrology Progress Note ---
Nephrology Progress Note Date of Service: December 04, 2017. Subjective 87 yo male with afib/copd/esrd who presented with worsening sob and volume overload. underwent dialysis on monday and monday. pt oob to chair. breathing is slowly improving. Objective Date Time Temp Pulse Resp B/P (MAP) Pulse Ox O2 Delivery O2 Flow Rate FiO2 12/04/17 04:00 Nasal Cannula 2.0 12/04/17 03:16 36.9 81 20 90/48 (62) 92 Nasal Cannula 2.0 Humidified Oxygen 12/04/17 00:01 Nasal Cannula 2.0 12/03/17 23:24 36.6 80 22 92/58 (69) 91 Nasal Cannula 2.0 Humidified Oxygen 12/03/17 20:26 112/56 (74) 12/03/17 20:00 Nasal Cannula 2.0 12/03/17 19:26 36.5 75 20 120/64 (82) 97 Nasal Cannula 1.5 12/03/17 16:42 36.2 109 22 120/57 (78) 91 Nasal Cannula 2.0 12/03/17 16:00 Nasal Cannula 2.0 12/03/17 12:00 Nasal Cannula 2.0 12/03/17 11:15 36.6 85 22 96/50 (65) 95 Nasal Cannula 2.0 12/03/17 08:00 Nasal Cannula 2.0 12/03/17 07:00 119 24 90 Nasal Cannula 2.0 12/03/17 06:42 36.6 96 22 101/51 (68) 91 Nasal Cannula 2.0 Humidified Oxygen Physical Exam: General-aaox3 Eyes-no scleral icterus ENT-mmm Neck-supple Lungs-decreased at bases Heart-irregular Abdomen-bs+ s/nt/nd Extremities-mild edema Neuro-nonfocal Current Inpatient Medications Medications (Trade) Dose Ordered Sig/Ronak Route Start Time Stop Time Status Last Admin Dose Admin Ipratropium Max (Atrovent 0.02% 0.5MG/2.5ML Neb) 0.5 mg Q4H PRN INH 11/30/17 20:30 12/30/17 20:29 Levalbuterol (Xopenex 1.25MG/ 0.5ML Neb) 1.25 mg Q4H PRN INH 11/30/17 20:30 12/30/17 20:29 Acetaminophen (Tylenol Tab) 650 mg Q4H PRN PO 11/30/17 22:00 12/30/17 21:59 12/02/17 20:09 650 MG Nitroglycerin (Nitrostat Tab) 0.4 mg UD PRN SL 11/30/17 22:00 12/30/17 21:59 Insulin Aspart (novoLOG ASPART) SLIDING SCALE If C... ACHS SC 12/01/17 06:45 12/31/17 06:59 12/03/17 11:39 2 UNITS Glucose (Glucose 40% Gel) 15-30 GRAMS 15 GRAMS... UD PRN PO 11/30/17 22:00 12/30/17 21:59 Glucose (Glucose Chew Tab) 4-8 Tablets 4 Tabl... UD PRN PO 11/30/17 22:00 12/30/17 21:59 Dextrose (Dextrose 50% 50ML Syringe) 25-50ML 25ML FOR ... UD PRN IV 11/30/17 22:00 12/30/17 21:59 Glucagon (Glucagon Inj) 1 mg UD PRN SQ 11/30/17 22:00 12/30/17 21:59 Carbohydrates (Carbohydrates For Hypoglycemia) 15-30 GRAMS 15 grams if BSG 54-69... UD PRN PO 11/30/17 22:00 12/30/17 21:59 Doxycycline Hyclate 100 mg/ Dextrose 110 ml @ 50 mls/hr BID@0000,1200 IV 12/01/17 00:00 12/08/17 00:00 12/03/17 23:18 50 MLS/HR Apixaban (Eliquis Tab) 2.5 mg BID PO 12/01/17 09:00 12/31/17 08:59 12/03/17 20:23 2.5 MG Aspirin (Ecotrin Tab) 81 mg QAM PO 12/01/17 09:00 12/31/17 08:59 12/03/17 07:44 81 MG Docusate Sodium (coLACE CAP) 100 mg BID PO 12/01/17 09:00 12/31/17 08:59 12/03/17 20:22 100 MG Finasteride (Proscar Tab) 5 mg HS PO 12/01/17 21:00 12/31/17 20:59 12/03/17 20:22 5 MG Salmeterol Xinafoate/ Fluticasone (Advair Diskus 250/50 Inh) 1 puff BID INH 12/01/17 09:00 12/31/17 08:59 12/03/17 20:23 1 PUFF Gabapentin (Neurontin Cap) 300 mg HS PO 12/01/17 21:00 12/31/17 20:59 12/03/17 20:23 300 MG Oxycodone HCl (Roxicodone Immediate Rel Tab) 5 mg Q4H PRN PO 11/30/17 23:45 12/14/17 23:44 Simvastatin (Zocor Tab) 20 mg QPM PO 12/01/17 21:00 12/31/17 20:59 12/03/17 20:22 20 MG Tramadol HCl (Ultram Tab) 50 mg Q8H PRN PO 11/30/17 23:45 12/30/17 23:44 12/02/17 18:23 50 MG Polyethylene (Miralax Powder Packet) 17 gm DAILY PRN PO 11/30/17 23:45 12/30/17 23:44 Midodrine (Proamatine Tab) 2.5 mg TID@0800,1300,1800 PO 12/01/17 08:00 12/31/17 07:59 12/03/17 16:44 2.5 MG Prochlorperazine Edisylate 5 mg/ Syringe 5 ml @ 5 mls/min Q6H PRN IV 11/30/17 23:45 12/30/17 23:44 Amiodarone HCl (Cordarone Tab) 200 mg DAILY PO 12/02/17 09:00 12/31/17 08:59 12/03/17 07:44 200 MG Digoxin (Lanoxin Tab) 0.125 mg MoWeFr@1600 PO 12/01/17 16:00 12/31/17 15:59 12/01/17 16:55 0.125 MG Ceftriaxone Sodium 2000 mg/ Dextrose 70 ml @ 140 mls/hr Q24H IV 12/01/17 20:00 12/08/17 19:59 12/03/17 20:26 140 MLS/HR Metoprolol Succinate (Toprol Xl Tab) 25 mg BID PO 12/01/17 21:00 12/31/17 20:59 12/03/17 20:24 25 MG Calcium Acetate (Phoslo Cap) 667 mg TIDM PO 12/02/17 11:30 01/01/18 11:29 12/03/17 16:44 667 MG Epoetin Alexis (Procrit Inj) 10,000 units ONE ONCE IV. 12/04/17 08:00 12/04/17 08:01 Heparin Sodium (Porcine) (No Heparin In Dialysis) 1 ea ONE ONCE N/A 12/04/17 08:00 12/04/17 08:01 Albumin Human (Albumin 25%) 12.5 gm TODAY@0800,0930,1100 IV 12/04/17 08:00 12/04/17 18:00 Last 24 Hours Test 12/03/17 07:15 12/03/17 11:14 12/03/17 16:33 12/03/17 20:18 Bedside Glucose 140 mg/dl 229 mg/dl 142 mg/dl 147 mg/dl Test 12/04/17 05:22 White Blood Count 9.67 K/uL Red Blood Count 3.77 M/uL Hemoglobin 11.2 g/dL Hematocrit 36.8 % Mean Corpuscular Volume 97.6 fL Mean Corpuscular Hemoglobin 29.7 pg Mean Corpuscular Hemoglobin Concent 30.4 g/dl Platelet Count 125 K/uL Mean Platelet Volume 9.5 fL Neutrophils (%) (Auto) 78.0 % Lymphocytes (%) (Auto) 8.9 % Monocytes (%) (Auto) 9.1 % Eosinophils (%) (Auto) 2.4 % Basophils (%) (Auto) 0.4 % Neutrophils # (Auto) 7.54 K/uL Lymphocytes # (Auto) 0.86 K/uL Monocytes # (Auto) 0.88 K/uL Eosinophils # (Auto) 0.23 K/uL Basophils # (Auto) 0.04 K/uL RDW Standard Deviation 58.6 fL RDW Coefficient of Variation 16.8 % Immature Granulocyte % (Auto) 1.2 % Immature Granulocyte # (Auto) 0.12 K/uL Assessment & Plan ESRD-pt with low blood pressures and difficult to remove fluid. for dialysis again today with the use of albumin. ok to use heparin if needed since not a true heparin allergy. will attempt around 2 liters off today as bp tolerates. sob though may be multifactorial and not purely volume. pt in my clinical opinion appears to be close to his baseline.
[2017-12-04 06:20] LABS: CALCIUM 8.7 mg/dl (8.5-10.1); CREATININE 6.07 mg/dl (0.60-1.40); PHOSPHORUS 6.8 mg/dl (2.5-4.9); POTASSIUM 4.5 mmol/L (3.5-5.1)
--- NOTE | 2017-12-04 07:15 | Progress Note ---
Post ICU Progress Note Date & Time December 04, 2017 at 07:09 Vital Signs Vital Signs Past 12 Hours Date Time Temp Pulse Resp B/P (MAP) Pulse Ox O2 Delivery O2 Flow Rate FiO2 12/04/17 06:30 36.4 78 20 107/54 (71) 96 Nasal Cannula 2.0 Humidified Oxygen 12/04/17 04:00 Nasal Cannula 2.0 12/04/17 03:16 36.9 81 20 90/48 (62) 92 Nasal Cannula 2.0 Humidified Oxygen 12/04/17 00:01 Nasal Cannula 2.0 12/03/17 23:24 36.6 80 22 92/58 (69) 91 Nasal Cannula 2.0 Humidified Oxygen 12/03/17 20:26 112/56 (74) 12/03/17 20:00 Nasal Cannula 2.0 12/03/17 19:26 36.5 75 20 120/64 (82) 97 Nasal Cannula 1.5 Notes Mental Status: alert / awake Nausea / Vomiting: adequately controlled Pain: adequately controlled Airway Patency, RR, SpO2: stable & adequate BP & HR: stable & adequate Patient is an 87-year-old male who was initially admitted to the ICU with hypoxic respiratory failure with hypercapnia in the setting of pneumonia and volume overload. The patient is currently undergoing hemodialysis. He received 2 [id number] rounds of hemodialysis as well as intravenous antibiotics. He has been narrowed down to Rocephin and doxycycline alone at this point. He has continued to do well on nasal cannula alone. He has not required positive pressure ventilation for the last few days. On evaluation today, the patient is resting comfortably. He is sitting at bedside. He reports feeling better than his initial presentation. He offers no complaints at this time. Consider outpatient follow up in 1 to 2 weeks with: Nephro, PCP, Cardiology Repeat imaging needed: Per admitting services. Follow up cultures: None at this time. Reviewed progress notes, labs, and inpatient medication list Continue current management Additional recommendations: Possibly continue w/ CPAP overnight if he continues to have desaturations overnight. Thank you for allowing us to participate in the care of this patient. At this time, Critical Care Services will sign off on this case. Please feel free to reconsult as needed. Consults & Procedures Consultants: Cardiology Nephrology
[2017-12-04] MEDS: FLUTICASONE/SALMETEROL 250/50 (ADVAIR) 14 PUFF/1 INHALER INH SCH (07:42)
[2017-12-04] MEDS: ASPIRIN 81 MG ECTAB PO SCH (07:43)
[2017-12-04] MEDS: CALCIUM ACETATE 667MG GELCAP PO SCH ×2 (07:43→10:50)
[2017-12-04] MEDS: AMIODARONE 200 MG TAB PO SCH (07:43)
[2017-12-04] MEDS: APIXABAN 2.5 MG TAB PO SCH (07:43)
[2017-12-04] MEDS: MIDODRINE 2.5 MG TAB PO SCH ×2 (07:44→13:26)
[2017-12-04] MEDS: METOPROLOL SUCC 25MG EXT REL TAB PO SCH (07:44)
[2017-12-04] MEDS: INSULIN ASPART 100 UNITS/ML 3 ML PEN SC SCH ×2 (07:44→10:50)
[2017-12-04] MEDS: DOCUSATE SODIUM 100 MG CAP PO SCH (07:44)
[2017-12-04] MEDS ORDERED: EPOETIN ALFA 10,000 UNITS/ML VIAL IV. ONE (08:00)
[2017-12-04] MEDS: ALBUMIN HUMAN 25% 12.5 GM/50 ML VIAL IV SCH ×2 (09:09→10:26)
--- NOTE | 2017-12-04 09:51 | Cardiology Follow-Up ---
Subjective General Date of Service: December 04, 2017. Chief Complaint: SOB Pt evaluation today including: conversation w/ patient, physical exam, chart review, lab review, review of studies, review of inpatient medication list History of Present Illness Patient feeling ok this AM. notes SOB has improved since admission. Currently receiving dialysis. Plan to remove additional 1.5-2.5 L of fluid today pending BP response. No dizziness. No chest pain. Edema improved. Heart rates well controlled on patient monitor over the last 24 hours. Allergies Coded Allergies: Iodine (Verified Allergy, Severe, HIVES, 11/30/17) Heparin (Verified Allergy, Unknown, UNKNOWN, 11/30/17) OK TO GIVE DWELL Sulfa Antibiotics (Verified Allergy, Unknown, ENTERED SULFA- UNKNOWN, ) Social History Smoking Status: Former Smoker Hx Tobacco Use In Past Year?: No Hx Alcohol Use - Type And Amou: No Hx Substance Use - Type And Am: No Problem List Medical Problems: (1) ARF (acute renal failure) Status: Acute (2) Aspiration pneumonia of right lower lobe Status: Acute (3) CHF (congestive heart failure) Status: Acute (4) Dehydration Status: Acute (5) Diverticulitis Status: Acute (6) ESRD (end stage renal disease) Status: Acute (7) Hyperglycemia Status: Acute (8) Hyperkalemia Status: Acute (9) Hypermagnesemia Status: Acute (10) Hypotension Status: Acute (11) Lower GI bleed Status: Acute (12) Pancreatitis Status: Acute (13) Renal failure Status: Acute (14) Renal failure Status: Acute (15) Urinary retention Status: Acute (16) UTI (urinary tract infection) Status: Acute Review of Systems Respiratory: + cough, + wheezing, + dyspnea on exertion, No sputum, No dyspnea at rest, No hemoptysis Cardiac: No chest pain, No orthopnea, No PND, No edema, No palpitations Physical Exam Vital Signs Last Vital Signs Documentation Date Time Temp Pulse Resp B/P (MAP) Pulse Ox O2 Delivery O2 Flow Rate FiO2 12/04/17 08:00 Nasal Cannula 2.0 12/04/17 06:30 36.4 78 20 107/54 (71) 96 12/03/17 03:39 35 Physical Exam Constitutional: General Apperance: overweight Level of Distress: NAD, acutely ill, chronically ill Psychiatric: Mental Status: active & alert Orientation: to time, to place, to person Eyes: Pupils: PERRLA Neck: supple Lungs: Auscultation: decreased breath sounds (anteriorly) Cardiovascular: Heart Auscultation: II/ LASHAWN, irregular rate rhythm Extremities: no edema Assessment and Plan Assessment and Plan IMPRESSION: 87-year-old male with issues as follows: 1. Chronic atrial fibrillation with difficult to control ventricular response rates, now improving. Continue amiodarone, metoprolol, and low dose digoxin. 2. Hypotension limiting dialysis, BP improved this AM. Monitor. 2. End-stage renal disease, on chronic dialysis. 3. History of ischemic cardiomyopathy. PLAN: Agree with ongoing fluid removal with dialysis. Appears close to baseline today. Heart rates improved. Continue amiodarone, metoprolol, and digoxin. Continue low dose Eliquis. Case to be discussed with Dr. Krishnamurthy. Cardiology attending: Pt seen and examined on HD, agree with findings and assessment as per Gabi Dunn PA-C. Pt appears to be at baseline and he agrees to that as well. Ok to d/ c to home from cardiac standpoint. Cont current doses of amio, metoprolol, dig and Eliquis. F/u as outpatient in 3-4 weeks. Laboratory Results Last 24 Hours Test 12/03/17 11:14 12/03/17 16:33 12/03/17 20:18 12/04/17 05:22 Bedside Glucose 229 mg/dl 142 mg/dl 147 mg/dl White Blood Count 9.67 K/uL Red Blood Count 3.77 M/uL Hemoglobin 11.2 g/dL Hematocrit 36.8 % Mean Corpuscular Volume 97.6 fL Mean Corpuscular Hemoglobin 29.7 pg Mean Corpuscular Hemoglobin Concent 30.4 g/dl Platelet Count 125 K/uL Mean Platelet Volume 9.5 fL Neutrophils (%) (Auto) 78.0 % Lymphocytes (%) (Auto) 8.9 % Monocytes (%) (Auto) 9.1 % Eosinophils (%) (Auto) 2.4 % Basophils (%) (Auto) 0.4 % Neutrophils # (Auto) 7.54 K/uL Lymphocytes # (Auto) 0.86 K/uL Monocytes # (Auto) 0.88 K/uL Eosinophils # (Auto) 0.23 K/uL Basophils # (Auto) 0.04 K/uL RDW Standard Deviation 58.6 fL RDW Coefficient of Variation 16.8 % Immature Granulocyte % (Auto) 1.2 % Immature Granulocyte # (Auto) 0.12 K/uL Sodium Level 134 mmol/L Potassium Level 4.5 mmol/L Chloride Level 97 mmol/L Carbon Dioxide Level 26 mmol/L Anion Gap 11.0 mmol/L Blood Urea Nitrogen 44 mg/dl Creatinine 6.07 mg/dl Est Creatinine Clear Calc Drug Dose 12.3 ml/min Estimated GFR () 8.9 Estimated GFR (Non- 7.7 BUN/Creatinine Ratio 7.3 Random Glucose 126 mg/dl Calcium Level 8.7 mg/dl Phosphorus Level 6.8 mg/dl Magnesium Level 2.0 mg/dl Test 12/04/17 06:48 Bedside Glucose 145 mg/dl
[2017-12-04] MEDS: DOXYCYCLINE IV 100 MG in DEXTROSE 5% 100ML 100 ML IV SCH (10:54)
[2017-12-04] MEDS ORDERED: NURSING VERBAL MED ORDER ONE ×3 (11:00)
[2017-12-04] MEDS ORDERED: TPRSR25 PO (15:06)
[2017-12-04] MEDS ORDERED: CRD200 PO (15:06)
[2017-12-04] MEDS ORDERED: LNX125 PO (15:06)
--- NOTE | 2017-12-04 15:18 | Discharge Instructions ---
Discharge Instructions Date of Service December 04, 2017. Admission Reason for Admission: Respiratory Failure, [id number] Discharge Discharge Diagnosis / Problem: acute on chronic respiratory failure Discharge Goals Goal(s): Prevent Disease Progression Activity Recommendations Activity Limitations: per Instructions/Follow-up section . Instructions / Follow-Up Instructions / Follow-Up Please take all medications per instructions provided on hospital discharge list. You will be going home with Home Health services for physical and occupational therapy in the short term. You have a follow-up appointment with Dr. Kam Dickey on Monday, 12/08 @ 10: 55am for follow-up from this hospitalization. Please bring all paperwork from discharge with you to this appointment. Please follow-up with [facility] as recommended. Your next outpatient dialysis is scheduled for tomorrow, December 05. It was a pleasure taking care of you! Call if you have any questions or problems. You can reach a [facility] hospitalist on duty at [facility] 24 hours a day by calling [phone]. Take care of yourself. Daysi Page DO [facility] Hospitalist Current Hospital Diet Patient's current hospital diet: Renal Diet, Diabetes Type 2 Diet Discharge Diet Recommended Diet: Diabetes Type 2 Diet, Renal Diet Procedures Procedures Performed: inpatient hemodialysis Pending Studies Studies pending at discharge: no Laboratory Results Hemoglobin A1c Test 11/30/17 19:00 Range/Units Estimated Average Glucose 117 mg/dl Hemoglobin A1c 5.7 H 4.5-5.6 % Medical Emergencies . Who to Call and When: Medical Emergencies: If at any time you feel your situation is an emergency, please call 911 immediately. . Non-Emergent Contact Non-Emergency issues call your: Primary Care Provider . . "Provider Documentation" section prepared by Daysi Page. .
--- NOTE | 2017-12-04 15:19 | Discharge Summary ---
Discharge Summary Date of Service December 04, 2017. Discharge Summary Admission Date: November 30, 2017 at 21:32 Discharge Date: December 04, 2017 Discharge Disposition: Home with services Consultations: ICU-[facility] Cardio-[facility] Nephro-[facility] Medication Reconciliation New Medications: Amiodarone HCl (Amiodarone HCl) 200 Mg Tab 200 MG PO DAILY for 30 Days, #30 TAB Digoxin (Digoxin) 0.125 Mg Tab 0.125 MG PO [id number] for 30 Days, #30 TAB Metoprolol Succinate (Metoprolol Succinate ER) 25 Mg Tabcr 25 MG PO BID for 30 Days, #60 TAB 1 Refill Continued Medications: Albuterol Hfa (Ventolin Hfa) 200 Puffs/94818 Mcg Aers 2 PUFFS INH QID, #1 INHALER Apixaban (Eliquis) 2.5 Mg Tab 2.5 MG PO BID, TAB Aspirin (Aspirin Ec) 81 Mg Tab 81 MG PO QAM Calcium Acetate (Phoslo 667 Mg) 667 Mg Cap 1 CAP PO TIDM for 30 Days, CAP 5 Refills Docusate Sodium (Docusate Sodium) 100 Mg Cap 100 MG PO BID for 7 Days, #14 CAP Finasteride (Proscar) 5 Mg Tab 5 MG PO HS Fluticasone Prop/Salmeterol (Advair Diskus 250/50 60 Dose) 1 Ea Aerp 1 PUFF INH BID Furosemide (Furosemide) 40 Mg Tab 80 MG PO BID Gabapentin (Neurontin) 300 Mg Cap 300 MG PO HS Home O2 Therapy (Oxygen) Gas 2 LITERS NA DIRECTED, BTL Insulin Aspart (Novolog Flexpen) 100 Units/Ml Inj 4 UNITS SQ AC Insulin Glargine (Lantus) 100 Unit/Ml Inj 48 UNITS SC BID, VIAL Licorice (Licorice Root) 1 Pow Pow 450 MG PO DAILY Midodrine (Midodrine HCl) 2.5 Mg Tab 2.5 MG PO TID Nitroglycerin (Nitrostat) 0.4 Mg Tab 0.4 MG UT UD PRN for Chest Pain Oxycodone Ir (Roxicodone Ir) 5 Mg Tab 5 MG PO Q4H PRN for Severe Pain, TAB Polyethylene Glycol 3350 (Miralax) 1 Pow Pow 17 GM PO DAILY PRN for Constipation, #527 GM Simvastatin (Simvastatin) 20 Mg Tab 20 MG PO QPM Tramadol (Ultram) 50 Mg Tab 50 MG PO Q8H PRN for Pain, TAB Discontinued Medications: Amiodarone Hcl (Cordarone) 200 Mg Tab 200 MG PO BID, TAB Metoprolol Tartrate (Lopressor) (Lopressor) 100 Mg Tab 100 MG PO BID, TAB Hospital Course 87-year-old man presented with shortness of breath secondary to volume overload. He presented to the ER after hemodialysis reporting lightheadedness and dizziness for the last week and was found to have systolic blood pressure of 60 on arrival. BP unresponsive to fluid administration, transferred to ICU for possible shock. No pressors were needed, however. Tolerated BIPAP and was weaned to nasal canula after Lasix and HD session with removal of fluid. Volume status has been corrected and he feels that his breathing is better and his symptoms are improved since admission. He is tolerating PO. He has no symptoms at this time. 1. Volume overload in setting of known ischemic cardiomyopathy with ejection fraction 35-40% patient is also on hemodialysis. Cont hemodialysis per Nephrology. Digoxin added by cardiology, amiodarone reduced, metoprolol continued at 25mg BID. Appreciate cardiology recs. Will cont to monitor on telemetry for now while dig-loading and adjusting Toprol. 2. Sepsis secondary to possible aspiration pneumonia-Zosyn was started in the ER, and Zosyn and doxycycline were continued in the ICU for coverage. Patient denies any current infectious symptoms. Blood cultures returned negative and he has been doing well clinically. Will discontinue antibiotics at this time 3. Hypotension-resolved. Cont midodrine. 4. Hypoxia secondary to #1-improved. Repeat CXR yesterday reveals an improvement from admission with a small amount of residual pulmonary edema on the R base. 5. Coronary artery disease status post stenting-appears stable, no chest pain. Serial cardiac enzymes are negative. No EKG changes consistent with ischemia. Continue medical management. 6. Atrial fibrillation-continue amiodarone at reduced dose per cardiology, anticoagulated on apixaban. 7. DM2-well controlled, continue insulin sliding scale with carb coverage while hospitalized. Recent A1c in July was 6.9. 8. Hx of heparin-induced thrombocytopenia. 9. 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 10. Obesity-PT/OT evaluation to assess ambulation. 11. Anemia of CKD DVT prophylaxis-apixaban Full code Disposition-cont telemetry monitoring while dig loading and adjusting Torpol and amiodarone. PT evaluation recommends return home. Will await Cardiology clearance. DO Sydney Robison Total time spent on discharge = This includes examination of the patient, discharge planning, medication reconciliation, and communication with other providers. Discharge Instructions [facility] [address] [place] [address] Discharge Medical Patient Name: Christina Lopez Unit Number: [id number] Date of : 1930 Patient Status: Admitted Inpatient Attending Doctor: Daysi Page DO DI: Medical v5 Discharge Instructions Date of Service December 04, 2017. Admission Reason for Admission: Respiratory Failure, [id number] Discharge Discharge Diagnosis / Problem: acute on chronic respiratory failure Discharge Goals Goal(s): Prevent Disease Progression Activity Recommendations Activity Limitations: per Instructions/Follow-up section . Instructions / Follow-Up Instructions / Follow-Up Please take all medications per instructions provided on hospital discharge list. You will be going home with Home Health services for physical and occupational therapy in the short term. You have a follow-up appointment with Dr. Kam Dickey on Monday, 12/08 @ 10: 55am for follow-up from this hospitalization. Please bring all paperwork from discharge with you to this appointment. Please follow-up with [facility] as recommended. Your next outpatient dialysis is scheduled for tomorrow, December 05. It was a pleasure taking care of you! Call if you have any questions or problems. You can reach a [facility] hospitalist on duty at [facility] 24 hours a day by calling [phone]. Take care of yourself. DO Sydney Robison Current Hospital Diet Patient's current hospital diet: Renal Diet, Diabetes Type 2 Diet Discharge Diet Recommended Diet: Diabetes Type 2 Diet, Renal Diet Procedures Procedures Performed: inpatient hemodialysis Pending Studies Studies pending at discharge: no Laboratory Results Hemoglobin A1c Test 11/30/17 19:00 Range/Units Estimated Average Glucose 117 mg/dl Hemoglobin A1c 5.7 H 4.5-5.6 % Medical Emergencies . Who to Call and When: Medical Emergencies: If at any time you feel your situation is an emergency, please call 911 immediately. . Non-Emergent Contact Non-Emergency issues call your: Primary Care Provider . . "Provider Documentation" section prepared by Daysi Page. .
[2017-12-04] MEDS: DIGOXIN 0.125 MG TAB PO SCH (16:10)
== END 2017-12-04 16:43 | disposition home health service (06) | DRG 871 ==
LOC: C.EDB 18:29 → C.MSICU 21:32 → ENRESERV 21:37 → C.2E 12-02 14:42
PROVIDERS: ADMIT Hospitalist; ATTEND Hospitalist
PROC: 5A09457 Assistance with Respiratory Ventilation, 24-96 Consecutive Hours, Continuous Positive Airway Pressure (ICD-10-PCS; principal; 2017-11-30)
DX: A41.9 Sepsis, unspecified organism (principal); I50.43 Acute on chronic combined systolic (congestive) and diastolic (congestive) heart failure; N18.6 End stage renal disease; J96.21 Acute and chronic respiratory failure with hypoxia; J69.0 Pneumonitis due to inhalation of food and vomit; J96.22 Acute and chronic respiratory failure with hypercapnia; N18.4 Chronic kidney disease, stage 4 (severe); I25.10 Atherosclerotic heart disease of native coronary artery without angina pectoris; I11.0 Hypertensive heart disease with heart failure; J44.9 Chronic obstructive pulmonary disease, unspecified; E11.22 Type 2 diabetes mellitus with diabetic chronic kidney disease; E78.5 Hyperlipidemia, unspecified; I25.5 Ischemic cardiomyopathy; I48.0 Paroxysmal atrial fibrillation; D63.1 Anemia in chronic kidney disease; I95.9 Hypotension, unspecified; E66.9 Obesity, unspecified; E83.39 Other disorders of phosphorus metabolism; Z95.5 Presence of coronary angioplasty implant and graft; Z87.891 Personal history of nicotine dependence; Z99.2 Dependence on renal dialysis; Z79.82 Long term (current) use of aspirin; Z88.2 Allergy status to sulfonamides; Z99.81 Dependence on supplemental oxygen; Z91.041 Radiographic dye allergy status; Z68.36 Body mass index [BMI] 36.0-36.9, adult; Z79.4 Long term (current) use of insulin; Z82.49 Family history of ischemic heart disease and other diseases of the circulatory system

== ENCOUNTER 2017-12-07 15:55 | Inpatient (IN) | payer OTHER ==
[~2017-12-07] VITALS: Ht 185.4 cm; Wt 128.1 kg
[~2017-12-07 15:55] MED LIST changes: -ALUMSUS2 PO; +APIX1TAB PO; -BISA10SU7 RE; +CALC667C4 PO; -CLC100 PO; +DOCU100C31 PO; -ELQ25 PO; +INSDGI SC; -INSDGIPEN SC; +LNX125 PO; -MRLP17 PO; +OXGN; +OXYC1TAB3 PO; -PHS667 PO; +POLY335019 PO; +SIMV-151 PO; -SODIENE PR; +TPRSR25 PO; -TPRSR50 PO; +TRAM-10 PO; +VNTHFA/IN INH; -ZCR40 PO; +[UNRECOGNIZED DRUG - CODE] PO
[2017-12-07] MEDS ORDERED: ONDANSETRON INJ 2 MG/ML 2 ML VIAL IV STA (16:10)
--- NOTE | 2017-12-07 16:21 | EMERGENCY ROOM VISIT NOTE ---
History Report prepared by aJcquie: Alfred Graves Under the Supervision of: Dr. Johnathon Mercado M.D. First contact with patient: 16:04 Chief Complaint: CARDIAC ASSESSMENT Stated Complaint: STOMACH PAIN, HEART PROBLEMS History of Present Illness The patient is a 87 year old male who presents to the Emergency Room with complaints of worsening abdominal pain for the past 2 days. Patient states that he also feels short of breath. Patient states that he always feel short of breath "but not this much". He adds that he has nausea, vomiting, cough, and congestion. Patient states that he was admitted at the hospital a week ago for congestive heart failure. Patient states that he was discharged home from hospital. He denies the hospital discussing any type of rehab. He states that his last bowel movement was yesterday. He states that it was "brown". Patient states that he has burning with urination. Patient states that he is on dialysis. He states that he was supposed to get dialysis today but he could not go do to the lower abdominal pain. He states that he last went 2 days ago, and that he has not missed any other dialysis visits than today. He adds that he started dialysis on the 13 of July. Patient states that he still urinates everyday. Pertinent past medical history includes kidney stones. Patient adds that he has a fistula but "he has not started using it yet". Patient states that he takes Eliquis. Patient states that he is on 2L of oxygen at home. He adds that he used to smoke. He denies using an inhaler. Patient is present in the ER with his neighbor. Patient states that he lives by himself. Patient denies any fevers. Source of History: patient Onset: 2 days ago Position: abdomen (Lower) Timing: worsening Associated Symptoms: + cough, + SOB, + nausea, + vomiting, + urinary symptoms (Burning with urination), No fevers Review of Systems See HPI for pertinent positives and negatives. A total of ten systems were reviewed and were otherwise negative. 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, chronic Surgical Problems: (1) H/O hernia repair (2) s/p laser vaporization of prostate 11/01/11 (3) Transurethral prostatectomy Family History Heart disease Social History Smoking Status: Former Smoker Drug Use: none Marital Status: single Housing Status: lives with family Occupation Status: unemployed Current/Historical Medications Scheduled Albuterol Hfa (Ventolin Hfa), 2 PUFFS INH QID Amiodarone Hcl (Cordarone), 200 MG PO DAILY Apixaban (Eliquis), 2.5 MG PO BID Aspirin (Aspirin Ec), 81 MG PO QAM Calcium Acetate (Phoslo 667 Mg), 1 CAP PO TIDM Digoxin (Digoxin), 1 TAB PO MWF Docusate Sodium (Docusate Sodium), 100 MG PO BID Finasteride (Proscar), 5 MG PO HS Fluticasone Prop/Salmeterol (Advair Diskus 250/50 60 Dose), 1 PUFF INH BID Furosemide (Furosemide), 80 MG PO BID Gabapentin (Neurontin), 300 MG PO HS Home O2 Therapy (Oxygen), 2 LITERS NA DIRECTED Insulin Aspart (Novolog Flexpen), 4 UNITS SQ AC Insulin Glargine (Lantus), 48 UNITS SC BID Licorice (Licorice Root), 450 MG PO DAILY Metoprolol Succ (Toprol Xl) (Toprol-Xl), 25 MG PO BID Midodrine (Midodrine HCl), 2.5 MG PO TID Simvastatin (Simvastatin), 20 MG PO QPM Scheduled PRN Nitroglycerin (Nitrostat), 0.4 MG UT UD PRN for Chest Pain Oxycodone Ir (Roxicodone Ir), 5 MG PO Q4H PRN for Severe Pain Polyethylene Glycol 3350 (Miralax), 17 GM PO DAILY PRN for Constipation Tramadol (Ultram), 50 MG PO Q8H PRN for Pain Allergies Coded Allergies: Iodine (Verified Allergy, Severe, HIVES, 12/07/17) Heparin (Verified Allergy, Unknown, UNKNOWN, 12/07/17) OK TO GIVE DWELL Sulfa Antibiotics (Verified Allergy, Unknown, ENTERED SULFA- UNKNOWN, ) Physical Exam Vital Signs Date Time Temp Pulse Resp B/P (MAP) Pulse Ox O2 Delivery O2 Flow Rate FiO2 12/07/17 19:04 83 18 132/63 93 Nasal Cannula 2.5 12/07/17 16:59 76 12/07/17 16:32 91 Nasal Cannula 2.0 12/07/17 16:32 91 Nasal Cannula 2.0 12/07/17 15:59 36.9 80 22 95/53 91 Nasal Cannula 2.0 Physical Exam GENERAL: Awake, uncomfortable, fatigued-appearing, in no distress HENT: Normocephalic, atraumatic. Oropharynx unremarkable other than dry and cracked mucous membranes. EYES: Normal conjunctiva. Sclera non-icteric. NECK: Supple. No nuchal rigidity. FROM. No JVD. RESPIRATORY: Diminished breath sounds throughout. CARDIAC: Left av fistula with palpable thrill. Regular rate, normal rhythm. Extremities warm and well perfused. Pulses equal. ABDOMEN: Soft, non-distended. Mild lower abdominal tenderness to palpation. No peritoneal signs. No rebound or guarding. No masses. RECTAL: Deferred. MUSCULOSKELETAL: Chest examination reveals no tenderness. The back is symmetrical on inspection without obvious abnormality. There is no CVA tenderness to palpation. No joint edema. LOWER EXTREMITIES: Calves are equal size bilaterally and non-tender. No edema. No discoloration. NEURO: Normal sensorium. No sensory or motor deficits noted. SKIN: No rash or jaundice noted. Medical Decision & Procedures ER Provider Diagnostic Interpretation: Radiology results as stated below per my review and radiologist interpretation: ABDOMEN AND PELVIS CT WITHOUT CONTRAST CT DOSE: 1718.91 mGy.cm HISTORY: Acute generalized abdominal pain lower abd pain, r/o stone/colitis TECHNIQUE: Multiaxial CT images of the abdomen and pelvis were performed without contrast. A dose lowering technique was utilized adhering to the principles of ALARA. COMPARISON STUDY: CT abdomen and pelvis 07/16/2017. FINDINGS: 7 mm solid nodule of the right middle lobe, possibly reflecting a perifissural lymph node or intrinsic pulmonary nodule. Cystic changes with calcified hahn limit the again noted involving the bilateral lung bases. Subpleural reticular and groundglass opacities are also redemonstrated. 7 mm pleural-based nodule of the lateral basal segment left lower lobe, image 6 series 3. No pneumatosis or pneumoperitoneum identified. The imaged inferior cardiac chambers are at least moderately enlarged. Mural fibrofatty changes of the lateral wall left jugular apex suggest sequela of prior myocardial infarction. Coronary arterial calcifications noted. No large pericardial effusion. Mild gallbladder distention with cholelithiasis. No CT evidence of acute cholecystitis. Liver, and pancreas are unremarkable. Mild thickening of the left adrenal gland with the right adrenal gland appearing diminutive in size. Mild splenomegaly, 15.0 cm with multiple calcified granulomata. Cortical thinning with mild atrophy about the bilateral kidneys. Mild bilateral perinephric stranding with innumerable renal lesions suggesting simple and complex renal cysts, not completely characterized on this noncontrast study. 2 mm nonobstructing calculus of the inferior pole left kidney with nonobstructing 7 mm calculus of the interpolar right kidney. No ureteral calculi or obstructive uropathy. Ureters appear normal. Bladder wall thickening with mild prostamegaly. Small bladder diverticula are also noted. 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 No bulky adenopathy identified. No small bowel obstruction. There is extensive colonic diverticulosis without definite CT evidence of acute diverticulitis. Moderate stool volume suggests constipation. Normal appendix. Partial distention of the distal sigmoid. Bilateral gynecomastia. Demineralized appearance of the bones with severe multilevel degenerative changes. IMPRESSION: 1. Extensive colonic diverticulosis without CT evidence of acute diverticulitis. 2. No bowel obstruction or focal bowel wall thickening. Normal appendix. 3. Mild prostamegaly with evidence of chronic bladder outlet obstruction. 4. Cholelithiasis and mild gallbladder distention without CT evidence of acute cholecystitis. 5. Bilateral nephrolithiasis without hydronephrosis. 6. Prior granulomatous disease. 7. Bibasilar solid pulmonary nodules measure up to 7 mm. 8. Additional findings as above including cardiomegaly and splenomegaly. Please refer to below summary of Fleischner criteria recommendations for follow-up of incidental CT nodules (Gabriella Chau, Guidelines for management of small pulmonary nodules detected on CT scans: A statement from the Fleischner Society, Radiology 237: [phone].) SOLID NODULES Multiple nodules size: 6-8 mm * Low risk patients: follow-up at 3-6 months, then consider further follow-up at 18-24 months * high risk patients: follow-up at 3-6 months, then at 18-24 months if no change Note: newly detected indeterminate nodule in persons 35 years of age or older. * Low risk patients: minimal or absent history of smoking and/or other known risk factors * high risk patients: history of smoking or of other known risk factors (e.g. first degree relative with lung cancer, or exposure to asbestos, radon, uranium) * if a nodule up to 8 mm is partly solid or is ground glass further follow-up is required after 24 months to exclude possible slow growing adenocarcinoma (MICHAELLE) The above report was generated using voice recognition software. It may contain grammatical, syntax or spelling errors. Electronically signed by: Orlando Ty M.D. 12/07/2017 5:56 PM CHEST ONE VIEW PORTABLE HISTORY: 87 years-old Male CHEST PAIN acute atypical chest pain COMPARISON: Chest radiograph 12/02/2017 TECHNIQUE: Portable AP view of the chest FINDINGS: Cardiac silhouette is again enlarged. There is atherosclerosis of the aorta. The dual-lumen right internal jugular central venous catheter appears unchanged. There is no pneumothorax. Suggested trace left pleural effusion. Bilateral patchy mixed interstitial and alveolar opacities are redemonstrated, predominantly within a mid and lower lung zone distribution with mild pulmonary vascular congestion. Findings appear generally unchanged from comparison. Degenerative changes of the shoulders and spine. IMPRESSION: 1. Cardiomegaly with unchanged mixed interstitial and alveolar opacities within a mid and lower lung zone predominant distribution suggesting mild pulmonary edema and/or pneumonitis. 2. Trace left pleural effusion. 3. Stable positioning of right internal jugular dual-lumen hemodialysis catheter. The above report was generated using voice recognition software. It may contain grammatical, syntax or spelling errors. Electronically signed by: Orlando Ty M.D. 12/07/2017 5:08 PM Laboratory Results 12/07/17 16:25 Red Blood Count 4.26, Mean Corpuscular Volume 97.4, Mean Corpuscular Hemoglobin 30.3, Mean Corpuscular Hemoglobin Concent 31.1, Mean Platelet Volume 10.9, Neutrophils (%) (Auto) 82.8, Lymphocytes (%) (Auto) 7.9, Monocytes (%) (Auto) 6.3, Eosinophils (%) (Auto) 2.0, Basophils (%) (Auto) 0.3, Neutrophils # (Auto) 9.68, Lymphocytes # (Auto) 0.92, Monocytes # (Auto) 0.73, Eosinophils # (Auto) 0.23, Basophils # (Auto) 0.03 12/07/17 16:25 Test 12/07/17 16:25 12/07/17 16:30 12/07/17 18:37 12/07/17 20:11 White Blood Count 11.67 K/uL (4.8-10.8) Red Blood Count 4.26 M/uL (4.7-6.1) Hemoglobin 12.9 g/dL (14.0-18.0) Hematocrit 41.5 % (42-52) Mean Corpuscular Volume 97.4 fL (80-100) Mean Corpuscular Hemoglobin 30.3 pg (25-34) Mean Corpuscular Hemoglobin Concent 31.1 g/dl (32-36) Platelet Count 148 K/uL (130-400) Mean Platelet Volume 10.9 fL (7.4-10.4) Neutrophils (%) (Auto) 82.8 % Lymphocytes (%) (Auto) 7.9 % Monocytes (%) (Auto) 6.3 % Eosinophils (%) (Auto) 2.0 % Basophils (%) (Auto) 0.3 % Neutrophils # (Auto) 9.68 K/uL (1.4-6.5) Lymphocytes # (Auto) 0.92 K/uL (1.2-3.4) Monocytes # (Auto) 0.73 K/uL (0.11-0.59) Eosinophils # (Auto) 0.23 K/uL (0-0.5) Basophils # (Auto) 0.03 K/uL (0-0.2) RDW Standard Deviation 59.1 fL (36.4-46.3) RDW Coefficient of Variation 17.1 % (11.5-14.5) Immature Granulocyte % (Auto) 0.7 % Immature Granulocyte # (Auto) 0.08 K/uL (0.00-0.02) Prothrombin Time 11.0 SECONDS (9.0-12.0) Prothromb Time International Ratio 1.0 (0.9-1.1) Anion Gap 9.0 mmol/L (3-11) Est Creatinine Clear Calc Drug Dose 12.6 ml/min Estimated GFR () 9.3 Estimated GFR (Non- 8.0 BUN/Creatinine Ratio 5.4 (10-20) Lactic Acid Level 1.2 mmol/L (0.4-2.0) Calcium Level 9.2 mg/dl (8.5-10.1) Phosphorus Level 5.4 mg/dl (2.5-4.9) Magnesium Level 2.3 mg/dl (1.8-2.4) Total Bilirubin 0.6 mg/dl (0.2-1) Direct Bilirubin 0.1 mg/dl (0-0.2) Aspartate Amino Transf (AST/SGOT) 9 U/L (15-37) Alanine Aminotransferase (ALT/SGPT) 11 U/L (12-78) Alkaline Phosphatase 55 U/L (45-117) Total Protein 8.2 gm/dl (6.4-8.2) Albumin 3.5 gm/dl (3.4-5.0) Lipase 174 U/L (73-393) Digoxin Level 1.2 ng/ml (0.8-2.0) Influenza Type A (RT-PCR) Neg for Influ A (NEG) Influenza Type B (RT-PCR) Neg for Influ B (NEG) Urine Color ORANGE Urine Appearance CLOUDY (CLEAR) Urine pH 5.0 (4.5-7.5) Urine Specific [place] 1.019 (1.000-1.030) Urine Protein 2+ (NEG) Urine Glucose (UA) NEG (NEG) Urine Ketones TRACE (NEG) Urine Occult Blood 3+ (NEG) Urine Nitrite POS (NEG) Urine Bilirubin NEG (NEG) Urine Urobilinogen NEG (NEG) Urine Leukocyte Esterase SMALL (NEG) Urine WBC (Auto) 0 /hpf (0-5) Urine RBC (Auto) >30 /hpf (0-4) Urine Hyaline Casts (Auto) 0 /lpf (0-5) Urine Epithelial Cells (Auto) 10-20 /lpf (0-5) Urine Bacteria (Auto) NEG (NEG) Urine Pathogenic Casts /lpf (0) Urine Yeast (Auto) (NONE PRSENT) Troponin I 0.031 ng/ml (0-0.045) Laboratory results reviewed by me Medications Administered Medications (Trade) Dose Ordered Sig/Ronak Route Start Time Stop Time Status Last Admin Dose Admin Ondansetron HCl (Zofran Inj) 4 mg NOW STAT IV 12/07/17 16:10 12/07/17 16:15 DC 12/07/17 17:06 4 MG ECG Per My Interpretation Indication: abdominal pain Rate (beats per minute): 79 Rhythm: atrial fibrillation Findings: left axis deviation, other (Nonspecific intraventricular block, Lateral T-wave abnormalities) Comparison ECG Date: 12/02/2017 Change: no significant change ED Course 1604: The patient was evaluated in room B7. A complete history and physical exam was performed. 193: Upon reexamination, the patient will be further evaluated. I discussed the test results and treatment plan with her. The patient will be evaluated for further management. Medical Decision I reviewed the patient's past medical history, medications, and the nursing notes as described above. Differential diagnosis: Etiologies such as appendicitis, diverticulitis, PUD, biliary pathology, UTI, pancreatitis, obstruction, mesenteric ischemia, aortic pathology, infections, inflammatory bowel disease, renal colic, as well as others were entertained. The patient is an 87-year-old gentleman with a past medical history of end- stage renal disease on HD Monday who presents emergency department with generalized abdominal pain with nausea and vomiting shortness of breath per hpi. On arrival the patient is chronically ill-appearing, fatigued, but in no acute distress, afebrile stable vital signs. EKG demonstrates A. fib with nonspecific lateral T-wave abnormalities that are similar to prior, otherwise no acute ischemia. Initial troponin 0.03. Chest x- ray consistent with mild overload. Bedside echo negative for pericardial effusion. WBC 11, nonspecific, Lactate wnl. CT the abdomen pelvis negative for any acute process. Still does urinate and so UA pending. Of note, the patient initially complained more of lower abdominal pain however then reported that his abdominal pain was more generalized with his nausea and shortness of breath. Symptoms likely related to the patient's overload however he skipped his dialysis today in favor of coming to the ED. Thus, it is reasonable to admit the patient to trend troponins and obtain dialysis tomorrow. Case d/w Dr. Smith, [facility] hospitalist who will admit the patient for further management. Medication Reconcilliation Current Medication List: was personally reviewed by me Blood Pressure Screening Patient's blood pressure: Elevated blood pressure Addressed as an inpatient. Consults Time Called: 1929 Consulting Physician: Dr. Luis Grimes Hospitalist Returned Call: 1931 I discussed the patient with Dr. Luis Grimes. He will evaluate the patient for further treatment. Impression Primary Impression: SOB (shortness of breath) Additional Impressions: Fluid overload Abdominal pain Scribe Attestation The scribe's documentation has been prepared under my direction and personally reviewed by me in its entirety. I confirm that the note above accurately reflects all work, treatment, procedures, and medical decision making performed by me. Departure Information Dispostion Being Evaluated By Hospitalist Referrals Kam Dickey D.OPage (PCP) Forms IMPORTANT VISIT INFORMATION Patient Instructions My [facility] Health Problem Qualifiers
[2017-12-07 17:02] LABS: BASO % 0.3 %; BASO ABS # 0.03 K/uL (0-0.2); EOS ABS # 0.23 K/uL (0-0.5); HEMATOCRIT 41.5 % (42-52); HEMOGLOBIN 12.9 g/dL (14.0-18.0); IG# 0.08 K/uL (0.00-0.02); LYMPH % 7.9 %; LYMPH ABS # 0.92 K/uL (1.2-3.4); MEAN CELL VOLUME 97.4 fL (80-100); MEAN CORPUSCULAR HEMOGLOBIN 30.3 pg (25-34); MEAN CORPUSCULAR HGB CONC 31.1 g/dl (32-36); MEAN PLATELET VOLUME 10.9 fL (7.4-10.4); MONO % 6.3 %; MONO ABS # 0.73 K/uL (0.11-0.59); NEUT % 82.8 %; NEUT ABS # 9.68 K/uL (1.4-6.5); PLATELET COUNT 148 K/uL (130-400); RED CELL DISTRIBUTION WIDTH CV 17.1 % (11.5-14.5); RED CELL DISTRIBUTION WIDTH SD 59.1 fL (36.4-46.3); WHITE BLOOD COUNT 11.67 K/uL (4.8-10.8)
--- NOTE | 2017-12-07 17:09 | DIAGNOSTIC IMAGING REPORT ---
CHEST ONE VIEW PORTABLE HISTORY: 87 years-old Male CHEST PAIN acute atypical chest pain COMPARISON: Chest radiograph 12/02/2017 TECHNIQUE: Portable AP view of the chest FINDINGS: Cardiac silhouette is again enlarged. There is atherosclerosis of the aorta. The dual-lumen right internal jugular central venous catheter appears unchanged. There is no pneumothorax. Suggested trace left pleural effusion. Bilateral patchy mixed interstitial and alveolar opacities are redemonstrated, predominantly within a mid and lower lung zone distribution with mild pulmonary vascular congestion. Findings appear generally unchanged from comparison. Degenerative changes of the shoulders and spine. IMPRESSION: 1. Cardiomegaly with unchanged mixed interstitial and alveolar opacities within a mid and lower lung zone predominant distribution suggesting mild pulmonary edema and/or pneumonitis. 2. Trace left pleural effusion. 3. Stable positioning of right internal jugular dual-lumen hemodialysis catheter. The above report was generated using voice recognition software. It may contain grammatical, syntax or spelling errors. Electronically signed by: Orlando Ty M.D. 12/07/2017 5:08 PM Dictated Date/Time: 12/07/2017 5:05 PM
[2017-12-07] MEDS ORDERED: LNX125 PO (17:10)
[2017-12-07] MEDS ORDERED: METO25TA3 PO (17:10)
[2017-12-07] MEDS ORDERED: AMIO200T4 PO (17:10)
[2017-12-07 17:33] LABS: INFLUENZA A PCR Neg for Influ A (NEG); INFLUENZA B PCR Neg for Influ B (NEG)
[2017-12-07 17:46] LABS: ALBUMIN 3.5 gm/dl (3.4-5.0); CALCIUM 9.2 mg/dl (8.5-10.1); PHOSPHORUS 5.4 mg/dl (2.5-4.9); POTASSIUM 3.9 mmol/L (3.5-5.1); TOTAL PROTEIN 8.2 gm/dl (6.4-8.2)
[2017-12-07 17:48] LABS: CREATININE 5.88 mg/dl (0.60-1.40)
--- NOTE | 2017-12-07 17:58 | DIAGNOSTIC IMAGING REPORT ---
ABDOMEN AND PELVIS CT WITHOUT CONTRAST CT DOSE: 1718.91 mGy.cm HISTORY: Acute generalized abdominal pain lower abd pain, r/o stone/colitis TECHNIQUE: Multiaxial CT images of the abdomen and pelvis were performed without contrast. A dose lowering technique was utilized adhering to the principles of ALARA. COMPARISON STUDY: CT abdomen and pelvis 07/16/2017. FINDINGS: 7 mm solid nodule of the right middle lobe, possibly reflecting a perifissural lymph node or intrinsic pulmonary nodule. Cystic changes with calcified hahn limit the again noted involving the bilateral lung bases. Subpleural reticular and groundglass opacities are also redemonstrated. 7 mm pleural-based nodule of the lateral basal segment left lower lobe, image 6 series 3. No pneumatosis or pneumoperitoneum identified. The imaged inferior cardiac chambers are at least moderately enlarged. Mural fibrofatty changes of the lateral wall left jugular apex suggest sequela of prior myocardial infarction. Coronary arterial calcifications noted. No large pericardial effusion. Mild gallbladder distention with cholelithiasis. No CT evidence of acute cholecystitis. Liver, and pancreas are unremarkable. Mild thickening of the left adrenal gland with the right adrenal gland appearing diminutive in size. Mild splenomegaly, 15.0 cm with multiple calcified granulomata. Cortical thinning with mild atrophy about the bilateral kidneys. Mild bilateral perinephric stranding with innumerable renal lesions suggesting simple and complex renal cysts, not completely characterized on this noncontrast study. 2 mm nonobstructing calculus of the inferior pole left kidney with nonobstructing 7 mm calculus of the interpolar right kidney. No ureteral calculi or obstructive uropathy. Ureters appear normal. Bladder wall thickening with mild prostamegaly. Small bladder diverticula are also noted. 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 No bulky adenopathy identified. No small bowel obstruction. There is extensive colonic diverticulosis without definite CT evidence of acute diverticulitis. Moderate stool volume suggests constipation. Normal appendix. Partial distention of the distal sigmoid. Bilateral gynecomastia. Demineralized appearance of the bones with severe multilevel degenerative changes. IMPRESSION: 1. Extensive colonic diverticulosis without CT evidence of acute diverticulitis. 2. No bowel obstruction or focal bowel wall thickening. Normal appendix. 3. Mild prostamegaly with evidence of chronic bladder outlet obstruction. 4. Cholelithiasis and mild gallbladder distention without CT evidence of acute cholecystitis. 5. Bilateral nephrolithiasis without hydronephrosis. 6. Prior granulomatous disease. 7. Bibasilar solid pulmonary nodules measure up to 7 mm. 8. Additional findings as above including cardiomegaly and splenomegaly. Please refer to below summary of Fleischner criteria recommendations for follow-up of incidental CT nodules (Gabriella Chau, Guidelines for management of small pulmonary nodules detected on CT scans: A statement from the Fleischner Society, Radiology 237: [phone].) SOLID NODULES Multiple nodules size: 6-8 mm * Low risk patients: follow-up at 3-6 months, then consider further follow-up at 18-24 months * high risk patients: follow-up at 3-6 months, then at 18-24 months if no change Note: newly detected indeterminate nodule in persons 35 years of age or older. * Low risk patients: minimal or absent history of smoking and/or other known risk factors * high risk patients: history of smoking or of other known risk factors (e.g. first degree relative with lung cancer, or exposure to asbestos, radon, uranium) * if a nodule up to 8 mm is partly solid or is ground glass further follow-up is required after 24 months to exclude possible slow growing adenocarcinoma (MICHAELLE) The above report was generated using voice recognition software. It may contain grammatical, syntax or spelling errors. Electronically signed by: Orlando Ty M.D. 12/07/2017 5:56 PM Dictated Date/Time: 12/07/2017 5:44 PM
[2017-12-07 20:57] VITALS: Ht 185.4 cm; Wt 128.1 kg
--- NOTE | 2017-12-07 22:25 | History and Physical ---
History & Physical Date & Time of Service: December 07, 2017 at 22:25 Chief Complaint: Abdominal Pain, Nausea, Vomiting Primary Care Physician: Kam Dickey D.O. History of Present Illness Source: patient, clinic records, hospital records 87 years old male with past medical history of end-stage renal disease on hemodialysis, A. fib, CHF, was recently admitted on [facility] on November 30 and discharged on December 04 for volume overload present to the ER for nausea and vomiting associated with abdominal pain. Patient said for about 2 days he has been having recurrent nausea and vomiting with abdominal pain. Patient described the pain as achy located across the abdomen nonradiating and grade 10 out of 10 in severity. He said that he has not been eating much since then because he was unable to keep anything in his stomach. He misses dialysis today because he was not feeling himself. He said that he continues to have shortness of breath that that is worsening with exertion. Also complaining of dysuria. His last bowel movement was yesterday and he said he was brownish color. Denies any chest pain, palpitation, dizziness, fever, and diarrhea. Past Medical/Surgical History Medical Problems: (1) ARF (acute renal failure) (2) Aspiration pneumonia of right lower lobe (3) Atrial fibrillation (4) CAD (coronary artery disease) (5) CHF (congestive heart failure) (6) Chronic hypoxemic respiratory failure (7) CKD (chronic kidney disease), stage IV (8) COPD (chronic obstructive pulmonary disease) (9) Dehydration (10) Diverticulitis (11) DM2 (diabetes mellitus, type 2) (12) ESRD (end stage renal disease) (13) ESRD on dialysis (14) HLD (hyperlipidemia) (15) HTN (hypertension) (16) Hyperglycemia (17) Hyperkalemia (18) Hypermagnesemia (19) Hypotension (20) Lower GI bleed (21) Nausea & vomiting (22) Pancreatitis (23) Pulmonary nodules (24) Renal failure (25) Renal failure (26) Respiratory failure, [id number] (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, chronic (28) Urinary retention (29) UTI (urinary tract infection) Surgical Problems: (1) H/O hernia repair (2) s/p laser vaporization of prostate 11/01/11 (3) Transurethral prostatectomy Family History Heart disease Social History Smoking Status: Former Smoker Drug Use: none Marital Status: single Occupational Status: unemployed Immunizations History of Influenza Vaccine: Yes Influenza Vaccine Date: Jun 19, 2017 History of Tetanus Vaccine?: Yes Tetanus Immunization Date: Sep 19, 2013 History of Pneumococcal: Yes Pneumococcal Date: Oct 20, 2014 Allergies Coded Allergies: Iodine (Verified Allergy, Severe, HIVES, 12/07/17) Heparin (Verified Allergy, Unknown, UNKNOWN, 12/07/17) OK TO GIVE DWELL Sulfa Antibiotics (Verified Allergy, Unknown, ENTERED SULFA- UNKNOWN, ) Home Medications Scheduled Albuterol Hfa (Ventolin Hfa), 2 PUFFS INH QID Amiodarone Hcl (Cordarone), 200 MG PO DAILY Apixaban (Eliquis), 2.5 MG PO BID Aspirin (Aspirin Ec), 81 MG PO QAM Calcium Acetate (Phoslo 667 Mg), 1 CAP PO TIDM Digoxin (Digoxin), 1 TAB PO MWF Docusate Sodium (Docusate Sodium), 100 MG PO BID Finasteride (Proscar), 5 MG PO HS Fluticasone Prop/Salmeterol (Advair Diskus 250/50 60 Dose), 1 PUFF INH BID Furosemide (Furosemide), 80 MG PO BID Gabapentin (Neurontin), 300 MG PO HS Home O2 Therapy (Oxygen), 2 LITERS NA DIRECTED Insulin Aspart (Novolog Flexpen), 4 UNITS SQ AC Insulin Glargine (Lantus), 48 UNITS SC BID Licorice (Licorice Root), 450 MG PO DAILY Metoprolol Succ (Toprol Xl) (Toprol-Xl), 25 MG PO BID Midodrine (Midodrine HCl), 2.5 MG PO TID Simvastatin (Simvastatin), 20 MG PO QPM Scheduled PRN Nitroglycerin (Nitrostat), 0.4 MG UT UD PRN for Chest Pain Oxycodone Ir (Roxicodone Ir), 5 MG PO Q4H PRN for Severe Pain Polyethylene Glycol 3350 (Miralax), 17 GM PO DAILY PRN for Constipation Tramadol (Ultram), 50 MG PO Q8H PRN for Pain Review of Systems Constitutional: + weakness, No fever Eyes: No discharge, No diplopia ENT: No nasal symptoms, No sore throat Respiratory: + shortness of breath, + dyspnea on exertion, No cough Cardiovascular: + edema, No chest pain, No palpitations Abdomen: + pain, + nausea, + vomiting Musculoskeletal: No calf pain Genitourinary - Male: + dysuria Neurologic: No weakness, No vertigo Psychiatric: No substance abuse Endocrine: + fatigue Hematologic / Lymphatic: No abnormal bleeding/bruising Integumentary: No rash, No itch Physical Exam Vital Signs Date Time Temp Pulse Resp B/P (MAP) Pulse Ox O2 Delivery O2 Flow Rate FiO2 12/07/17 21:49 77 20 131/50 94 12/07/17 21:11 79 12/07/17 20:57 Nasal Cannula 2.0 12/07/17 19:04 83 18 132/63 93 Nasal Cannula 2.5 12/07/17 16:59 76 12/07/17 16:32 91 Nasal Cannula 2.0 12/07/17 16:32 91 Nasal Cannula 2.0 12/07/17 15:59 36.9 80 22 95/53 91 Nasal Cannula 2.0 General Appearance: WD/WN, no apparent distress Head: normocephalic, atraumatic Eyes: PERRL, EOMI ENT: hearing grossly normal Neck: supple, trachea midline Respiratory/Chest: no respiratory distress, no accessory muscle use, + decreased breath sounds Cardiovascular: regular rate, rhythm, no murmur Abdomen/GI: normal bowel sounds, + tenderness Back: no CVA tenderness Extremities/Musculoskelatal: no calf tenderness, + swelling Neurologic/Psych: alert, oriented x 3 Skin: warm/dry, no rash Diagnostics Laboratory Results Results Past 24 Hours Test 12/07/17 16:25 12/07/17 16:30 12/07/17 18:37 12/07/17 20:11 Range/Units White Blood Count 11.67 4.8-10.8 K/uL Red Blood Count 4.26 4.7-6.1 M/uL Hemoglobin 12.9 14.0-18.0 g/dL Hematocrit 41.5 42-52 % Mean Corpuscular Volume 97.4 80-100 fL Mean Corpuscular Hemoglobin 30.3 25-34 pg Mean Corpuscular Hemoglobin Concent 31.1 32-36 g/dl Platelet Count 148 130-400 K/uL Mean Platelet Volume 10.9 7.4-10.4 fL Neutrophils (%) (Auto) 82.8 % Lymphocytes (%) (Auto) 7.9 % Monocytes (%) (Auto) 6.3 % Eosinophils (%) (Auto) 2.0 % Basophils (%) (Auto) 0.3 % Neutrophils # (Auto) 9.68 1.4-6.5 K/uL Lymphocytes # (Auto) 0.92 1.2-3.4 K/uL Monocytes # (Auto) 0.73 0.11-0.59 K/uL Eosinophils # (Auto) 0.23 0-0.5 K/uL Basophils # (Auto) 0.03 0-0.2 K/uL RDW Standard Deviation 59.1 36.4-46.3 fL RDW Coefficient of Variation 17.1 11.5-14.5 % Immature Granulocyte % (Auto) 0.7 % Immature Granulocyte # (Auto) 0.08 0.00-0.02 K/uL Prothrombin Time 11.0 9.0-12.0 SECONDS Prothromb Time International Ratio 1.0 0.9-1.1 Sodium Level 137 136-145 mmol/L Potassium Level 3.9 3.5-5.1 mmol/L Chloride Level 99 98-107 mmol/L Carbon Dioxide Level 29 21-32 mmol/L Anion Gap 9.0 3-11 mmol/L Blood Urea Nitrogen 32 7-18 mg/dl Creatinine 5.88 0.60-1.40 mg/dl Est Creatinine Clear Calc Drug Dose 12.6 ml/min Estimated GFR () 9.3 Estimated GFR (Non- 8.0 BUN/Creatinine Ratio 5.4 10-20 Random Glucose 118 70-99 mg/dl Lactic Acid Level 1.2 0.4-2.0 mmol/L Calcium Level 9.2 8.5-10.1 mg/dl Phosphorus Level 5.4 2.5-4.9 mg/dl Magnesium Level 2.3 1.8-2.4 mg/dl Total Bilirubin 0.6 0.2-1 mg/dl Direct Bilirubin 0.1 0-0.2 mg/dl Aspartate Amino Transf (AST/SGOT) 9 15-37 U/L Alanine Aminotransferase (ALT/SGPT) 11 12-78 U/L Alkaline Phosphatase 55 45-117 U/L Troponin I 0.031 0.031 0-0.045 ng/ml Total Protein 8.2 6.4-8.2 gm/dl Albumin 3.5 3.4-5.0 gm/dl Lipase 174 73-393 U/L Digoxin Level 1.2 0.8-2.0 ng/ml Influenza Type A (RT-PCR) Neg for Influ A NEG Influenza Type B (RT-PCR) Neg for Influ B NEG Urine Color ORANGE Urine Appearance CLOUDY CLEAR Urine pH 5.0 4.5-7.5 Urine Specific [place] 1.019 1.000-1.030 Urine Protein 2+ NEG Urine Glucose (UA) NEG NEG Urine Ketones TRACE NEG Urine Occult Blood 3+ NEG Urine Nitrite POS NEG Urine Bilirubin NEG NEG Urine Urobilinogen NEG NEG Urine Leukocyte Esterase SMALL NEG Urine WBC (Auto) 0 0-5 /hpf Urine RBC (Auto) >30 0-4 /hpf Urine Hyaline Casts (Auto) 0 0-5 /lpf Urine Epithelial Cells (Auto) 10-20 0-5 /lpf Urine Bacteria (Auto) NEG NEG Urine Pathogenic Casts 0 /lpf Urine Yeast (Auto) NONE PRSENT Microbiology Results 12/07/17 Blood Culture, Received Pending 12/07/17 Blood Culture, Received Pending 12/07/17 Urine Culture, Received Pending Diagnostic Radiology ABDOMEN AND PELVIS CT WITHOUT CONTRAST CT DOSE: 1718.91 mGy.cm HISTORY: Acute generalized abdominal pain lower abd pain, r/o stone/colitis TECHNIQUE: Multiaxial CT images of the abdomen and pelvis were performed without contrast. A dose lowering technique was utilized adhering to the principles of ALARA. COMPARISON STUDY: CT abdomen and pelvis 07/16/2017. FINDINGS: 7 mm solid nodule of the right middle lobe, possibly reflecting a perifissural lymph node or intrinsic pulmonary nodule. Cystic changes with calcified hahn limit the again noted involving the bilateral lung bases. Subpleural reticular and groundglass opacities are also redemonstrated. 7 mm pleural-based nodule of the lateral basal segment left lower lobe, image 6 series 3. No pneumatosis or pneumoperitoneum identified. The imaged inferior cardiac chambers are at least moderately enlarged. Mural fibrofatty changes of the lateral wall left jugular apex suggest sequela of prior myocardial infarction. Coronary arterial calcifications noted. No large pericardial effusion. Mild gallbladder distention with cholelithiasis. No CT evidence of acute cholecystitis. Liver, and pancreas are unremarkable. Mild thickening of the left adrenal gland with the right adrenal gland appearing diminutive in size. Mild splenomegaly, 15.0 cm with multiple calcified granulomata. Cortical thinning with mild atrophy about the bilateral kidneys. Mild bilateral perinephric stranding with innumerable renal lesions suggesting simple and complex renal cysts, not completely characterized on this noncontrast study. 2 mm nonobstructing calculus of the inferior pole left kidney with nonobstructing 7 mm calculus of the interpolar right kidney. No ureteral calculi or obstructive uropathy. Ureters appear normal. Bladder wall thickening with mild prostamegaly. Small bladder diverticula are also noted. 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 No bulky adenopathy identified. No small bowel obstruction. There is extensive colonic diverticulosis without definite CT evidence of acute diverticulitis. Moderate stool volume suggests constipation. Normal appendix. Partial distention of the distal sigmoid. Bilateral gynecomastia. Demineralized appearance of the bones with severe multilevel degenerative changes. IMPRESSION: 1. Extensive colonic diverticulosis without CT evidence of acute diverticulitis. 2. No bowel obstruction or focal bowel wall thickening. Normal appendix. 3. Mild prostamegaly with evidence of chronic bladder outlet obstruction. 4. Cholelithiasis and mild gallbladder distention without CT evidence of acute cholecystitis. 5. Bilateral nephrolithiasis without hydronephrosis. 6. Prior granulomatous disease. 7. Bibasilar solid pulmonary nodules measure up to 7 mm. 8. Additional findings as above including cardiomegaly and splenomegaly. Please refer to below summary of Fleischner criteria recommendations for follow-up of incidental CT nodules (Gabirella Chau, Guidelines for management of small pulmonary nodules detected on CT scans: A statement from the Fleischner Society, Radiology 237: [id number].) SOLID NODULES Multiple nodules size: 6-8 mm * Low risk patients: follow-up at 3-6 months, then consider further follow-up at 18-24 months * high risk patients: follow-up at 3-6 months, then at 18-24 months if no change Note: newly detected indeterminate nodule in persons 35 years of age or older. * Low risk patients: minimal or absent history of smoking and/or other known risk factors * high risk patients: history of smoking or of other known risk factors (e.g. first degree relative with lung cancer, or exposure to asbestos, radon, uranium) * if a nodule up to 8 mm is partly solid or is ground glass further follow-up is required after 24 months to exclude possible slow growing adenocarcinoma (MICHAELLE) The above report was generated using voice recognition software. It may contain grammatical, syntax or spelling errors. Electronically signed by: Orlando Ty M.D. 12/07/2017 5:56 PM Dictated Date/Time: 12/07/2017 5:44 PM CHEST ONE VIEW PORTABLE HISTORY: 87 years-old Male CHEST PAIN acute atypical chest pain COMPARISON: Chest radiograph 12/02/2017 TECHNIQUE: Portable AP view of the chest FINDINGS: Cardiac silhouette is again enlarged. There is atherosclerosis of the aorta. The dual-lumen right internal jugular central venous catheter appears unchanged. There is no pneumothorax. Suggested trace left pleural effusion. Bilateral patchy mixed interstitial and alveolar opacities are redemonstrated, predominantly within a mid and lower lung zone distribution with mild pulmonary vascular congestion. Findings appear generally unchanged from comparison. Degenerative changes of the shoulders and spine. IMPRESSION: 1. Cardiomegaly with unchanged mixed interstitial and alveolar opacities within a mid and lower lung zone predominant distribution suggesting mild pulmonary edema and/or pneumonitis. 2. Trace left pleural effusion. 3. Stable positioning of right internal jugular dual-lumen hemodialysis catheter. The above report was generated using voice recognition software. It may contain grammatical, syntax or spelling errors. Electronically signed by: Orlando Ty M.D. 12/07/2017 5:08 PM Dictated Date/Time: 12/07/2017 5:05 PM Impression Assessment and Plan Abdominal pain/Nausea/Vomiting Possible related to gastroenteritis CT abd/pelvis showed Extensive colonic diverticulosis without CT evidence of acute diverticulitis. No bowel obstruction or focal bowel wall thickening. Will start on Zofran prn Continue pain control Dyspnea Possible related to volume overload Missed HD today CXR showed Cardiomegaly with unchanged mixed interstitial and alveolar opacities within a mid and lower lung zone predominant distribution suggesting mild pulmonary edema and/or pneumonitis. Continue Lasix 80mg BID Will need to get HD in am Continue oxygen supplement Continue neb treatment UTI Elevated WBC Afebrile UA positive for nitrite/Leukocytes and blood Will start on rocephin Urine cx and blood cx collected in the ER pending ESRD on HD , , Sat Missed today HD Consult nephrology Will need to get HD tomorrow Ischemic Cardiomyopathy Denies any chest pain Troponin negative Continue Metoprolol, lasix CAD s// stent Continue aspirin, statin and metoprolol Stable Hypotension BP stable On Midodrine Afib Rate control Continue amiodarone, digoxin, metoprolol On anticoagulant with Apixaban DM type 2 Recent hba1c 5.7 on 11/30/17 Well controlled Will start on insulin sliding scale Chronic Anemia Hgb stable DVT px on Apixaban CODE STATUS FULL CODE Advanced Directives Existing Living Will: Yes Existing Power of Academic Affairs Assistant: Yes Resuscitation Status VTE Prophylaxis Will order VTE Prophylaxis: Yes
[2017-12-07] MEDS ORDERED: NITROGLYCERIN 0.4 MG SL PER TAB CHARGE UT PRN (22:30)
[2017-12-07 22:32] VITALS: BP 108/60; PULSE 73; TEMP 36.6; O2SAT 96
[2017-12-07] MEDS ORDERED: FUROSEMIDE 80 MG TAB PO ONE (22:32)
[2017-12-07 23:49] VITALS: BP 117/57; PULSE 50; TEMP 36.7; O2SAT 93
[2017-12-08] VITALS (21 sets, daily range): BP systolic 92–130; BP diastolic 38–63; PULSE 61–88; TEMP 36.4–36.8; O2SAT 94–96
[2017-12-08] MEDS ORDERED: CARBOHYDRATES FOR HYPOGLYCEMIA PO PRN (00:30)
[2017-12-08] MEDS ORDERED: GLUCOSE 10 TABS/TUBE PO PRN (00:30)
[2017-12-08] MEDS ORDERED: GLUCOSE 40% GEL 15 GM TUBE PO PRN (00:30)
[2017-12-08] MEDS ORDERED: GLUCAGON FOR INJ 1 MG VIAL SQ PRN (00:30)
[2017-12-08] MEDS ORDERED: DEXTROSE 50% 50 ML SYR IV PRN (00:30)
[2017-12-08] MEDS: CEFTRIAXONE SOD INJ 1 GM in DEXTROSE 5% ADD-VANTAGE 50ML 50 ML IV SCH (04:57)
[2017-12-08 06:09] LABS: HEMATOCRIT 37.8 % (42-52); HEMOGLOBIN 11.5 g/dL (14.0-18.0); MEAN CELL VOLUME 98.2 fL (80-100); MEAN CORPUSCULAR HEMOGLOBIN 29.9 pg (25-34); MEAN CORPUSCULAR HGB CONC 30.4 g/dl (32-36); MEAN PLATELET VOLUME 10.2 fL (7.4-10.4); PLATELET COUNT 117 K/uL (130-400); RED CELL DISTRIBUTION WIDTH CV 17.1 % (11.5-14.5); RED CELL DISTRIBUTION WIDTH SD 60.2 fL (36.4-46.3); WHITE BLOOD COUNT 8.48 K/uL (4.8-10.8)
[2017-12-08 07:33] LABS: CALCIUM 8.5 mg/dl (8.5-10.1); CREATININE 6.69 mg/dl (0.60-1.40); POTASSIUM 4.2 mmol/L (3.5-5.1)
[2017-12-08] MEDS: ASPIRIN 81 MG ECTAB PO SCH (08:00)
[2017-12-08] MEDS: MIDODRINE 2.5 MG TAB PO SCH ×3 (08:00→17:13)
[2017-12-08] MEDS: DOCUSATE SODIUM 100 MG CAP PO SCH ×2 (08:01→21:31)
[2017-12-08] MEDS: FUROSEMIDE 80 MG TAB PO SCH ×2 (08:01→17:13)
[2017-12-08] MEDS: CALCIUM ACETATE 667MG GELCAP PO SCH ×3 (08:01→17:11)
[2017-12-08] MEDS: AMIODARONE 200 MG TAB PO SCH (08:02)
[2017-12-08] MEDS: FLUTICASONE/SALMETEROL 250/50 (ADVAIR) 14 PUFF/1 INHALER INH SCH ×2 (08:03→21:31)
[2017-12-08] MEDS: APIXABAN 2.5 MG TAB PO SCH ×2 (08:03→21:31)
[2017-12-08] MEDS: ALBUTEROL HFA 8 GM INHALER INH SCH ×4 (08:04→21:32)
[2017-12-08] MEDS: INSULIN ASPART 100 UNITS/ML 3 ML PEN SC SCH ×4 (08:12→21:00)
--- NOTE | 2017-12-08 08:28 | NEPHROLOGY CONSULTATION ---
DATE OF CONSULTATION: 12/08/2017 ATTENDING OF RECORD: Dr. Page REASON FOR CONSULTATION: ESRD. HISTORY OF PRESENT ILLNESS: This is an 87-year-old male with atrial fibrillation, rate controlled, ESRD, who dialyzes Tuesdays, , Saturdays at the [facility] dialysis unit as well as COPD, on chronic oxygen and underlying diastolic-systolic heart failure, who was recently admitted earlier this month for volume overload. The patient has been having abdominal pain, nausea, and dry heaves for the past several days, missed dialysis yesterday. Overall, he just does not feel well. Denies any diarrhea or constipation. No dysuria, no chest pain. Suffers from chronic shortness of breath, has not been able to eat much with the abdominal pain. PAST MEDICAL HISTORY: Atrial fibrillation, heart disease, systolic heart failure, diastolic heart failure, COPD, ESRD, diabetes, hyperlipidemia, hypertension. PAST SURGICAL HISTORY: Fistula placement, tunnel dialysis catheter, TURP, hernia repair, prostatectomy. FAMILY HISTORY: Significant for heart disease. SOCIAL HISTORY: Former smoker, no alcohol, no drugs. CURRENT MEDICATIONS: Proscar 5 mg at night, Neurontin 300 mg at night, Zocor 20 mg at night, digoxin 0.125 Monday, Monday, Monday, amiodarone 200 mg daily, Eliquis 2.5 mg p.o. b.i.d., aspirin 81 mg a day, Colace 100 mg p.o. b.i.d., Advair inhaler twice a day, Lasix 80 mg p.o. b.i.d., Toprol-XL 25 mg p.o. b.i.d., PhosLo 1 p.o. t.i.d. with meals, midodrine 2.5 mg p.o. t.i.d., ceftriaxone 1 g IV daily. REVIEW OF SYSTEMS: Positive abdominal pain. Positive nausea. Positive vomiting. Positive chronic shortness of breath. Positive fatigue. No chest pain. No blurry vision. No dysphagia. No headaches. No rash or itching. No dysuria. No diarrhea. All other review of systems otherwise negative. PHYSICAL EXAMINATION: VITAL SIGNS: Temperature is 36.7, pulse 50, respiratory rate is 18, blood pressure 117/57, satting 93% on 2.5 L. GENERAL: Awake, alert, oriented x3. EYES: No scleral icterus. ENT: Moist mucous membranes. NECK: Supple. PULMONARY: Clear to auscultation. CARDIAC: Irregular. ABDOMEN: Tenderness in the bilateral lower quadrants. Bowel sounds positive. Nondistended. EXTREMITIES: No significant clubbing, cyanosis, or edema. NEUROLOGICAL: Nonfocal. DERMATOLOGIC: No rash or ulcers noted. LABORATORIES: Pending for this morning. On admission last night, sodium level of 137, potassium is 3.9, chloride is 99, bicarbonate is 29, BUN is 32, creatinine is 5.88, glucose 118. Lactic acid 1.2. Phosphorus 5.4. Albumin 3.5. White count is 11, H and H 12 and 41, platelet count 148. INR is 1. UA shows 3+ blood, positive nitrite, small leukocyte esterase, greater than 30 rbc's. Digoxin 1.2. Flu negative. Blood and urine cultures are pending. Abdominal and pelvis CT shows extensive diverticulosis, bilateral nephrolithiasis, bibasilar cell pulmonary nodules, cardiomegaly, splenomegaly, enlarged prostate. Chest x-ray shows cardiomegaly with mixed interstitial and alveolar opacities within the mid and lower lung zones suggesting mild pulmonary edema and/or pneumonitis. ASSESSMENT AND PLAN: 1. End-stage renal disease: Volume status in my opinion is good. The patient has not been eating or drinking much, just was in the hospital with aggressive diuresis. Leg swelling much improved. Lungs, clear to auscultation. We will dialyze him today since the patient missed yesterday's dialysis and we will dialyze for clearance. Potassium levels are not elevated, so we will dialyze on a 3k bath. We will attempt 1 L fluid removal to continue to help support pulmonary status. 2. Abdominal pain, question if it is related to a possible UTI, question if the patient is having underlying mesenteric ischemia. The CT scan was unimpressive, could be suffering from a viral gastroenteritis. Unfortunately, given his multiple comorbidities, differential is quite broad for his bilateral lower quadrant abdominal pain. 3. In my personal opinion, the patient is suffering from multiple end-stage organ dysfunctions which are noncorrectable and the patient appears to continue to slowly decompensate, overall has a poor prognosis and is likely to pass away in the next upcoming months. I appreciate the consultation. QASIM
[2017-12-08] MEDS ORDERED: LICORICE PO SCH (09:00)
[2017-12-08] MEDS: TRAMADOL HCL 50 MG TAB PO PRN ×2 (13:07→21:33)
[2017-12-08] MEDS: METOPROLOL SUCC 25MG EXT REL TAB PO SCH ×2 (13:11→21:31)
[2017-12-08] MEDS: DIGOXIN 0.125 MG TAB PO SCH (16:01)
--- NOTE | 2017-12-08 18:19 | Progress Note ---
Internal Med Progress Note Date of Service: December 08, 2017. Provider Documentation: SUBJECTIVE: sitting on the chair \says sob is same abdominal pain is same /10 in severity in lower abdomen no chest pain no cough afebrile had dialysis today OBJECTIVE: Vital Signs-as noted below Exam: General-alert and oriented. Not in distress ENT-Normal hearing Neck-no neck masses Lungs-cta b/l no wheezing no crackles Heart-s1 and s2 heard regular rate and rhythm no murmurs Abdomen-soft bowel sounds present tenderness on palpation of lower abdomen, no distension Extremities-b/l lower extremity edema present chronic skin changes Neuro-alert and awake 'moves extremities Lab data as noted below. ASSESSMENT & PLAN: Abdominal pain/Nausea/Vomiting Possible gastroenteritis CT abd/pelvis showed Extensive colonic diverticulosis without CT evidence of acute diverticulitis. No bowel obstruction or focal bowel wall thickening. Zofran prn pain control will check Abdominal arterial US Dyspnea Acute systolic andf diastolic chf Possible related to volume overload Missed HD today CXR showed Cardiomegaly with unchanged mixed interstitial and alveolar opacities within a mid and lower lung zone predominant distribution suggesting mild pulmonary edema and/or pneumonitis. to continue Lasix 80mg BID s/p HD today Continue oxygen supplement Continue neb treatment UTI Elevated WBC Afebrile UA positive for nitrite/Leukocytes and blood started on rocephin f/u cx ESRD on HD , , Sat Missed today HD Consulted nephrology Had HD today CAD s// stent on aspirin, statin and metoprolol Stable Hypotension BP stable On Midodrine Afib Rate control on amiodarone, digoxin, metoprolol On anticoagulant with Apixaban DM type 2 Recent hba1c 5.7 on 11/30/17 Well controlled insulin sliding scale will monitor Chronic Anemia Hgb stable DVT px on Apixaban CODE STATUS FULL CODE DISPOSITION to be determined Vital Signs: Date Time Temp Pulse Resp B/P (MAP) Pulse Ox O2 Delivery O2 Flow Rate FiO2 12/08/17 17:08 69 103/63 (76) 12/08/17 16:01 67 12/08/17 14:42 36.4 77 20 92/52 (65) 96 12/08/17 13:40 36.5 69 121/59 (79) 12/08/17 13:10 130/63 (85) 12/08/17 12:15 70 120/56 12/08/17 12:00 64 93/55 12/08/17 11:45 68 105/54 12/08/17 11:30 71 118/51 12/08/17 11:15 65 114/49 12/08/17 11:00 72 114/48 12/08/17 10:45 73 113/57 12/08/17 10:30 61 113/55 12/08/17 10:15 68 113/38 12/08/17 10:00 70 110/47 12/08/17 09:45 63 106/48 12/08/17 09:30 67 113/48 12/08/17 09:17 67 102/48 12/08/17 09:10 36.5 66 110/47 (68) 12/08/17 08:00 Nasal Cannula 2.0 12/08/17 07:32 36.8 64 20 92/52 (65) 94 2.0 12/07/17 23:59 Nasal Cannula 2.5 12/07/17 23:49 36.7 50 18 117/57 (77) 93 Nasal Cannula 2.0 12/07/17 22:32 36.6 73 16 108/60 (76) 96 Nasal Cannula 2.5 12/07/17 21:49 77 20 131/50 94 12/07/17 21:11 79 12/07/17 20:57 Nasal Cannula 2.0 12/07/17 19:04 83 18 132/63 93 Nasal Cannula 2.5 Lab Results: Results Past 24 Hours Test 12/07/17 18:37 12/07/17 20:11 12/07/17 22:48 12/08/17 05:57 Range/Units Urine Color ORANGE Urine Appearance CLOUDY CLEAR Urine pH 5.0 4.5-7.5 Urine Specific [place] 1.019 1.000-1.030 Urine Protein 2+ NEG Urine Glucose (UA) NEG NEG Urine Ketones TRACE NEG Urine Occult Blood 3+ NEG Urine Nitrite POS NEG Urine Bilirubin NEG NEG Urine Urobilinogen NEG NEG Urine Leukocyte Esterase SMALL NEG Urine WBC (Auto) 0 0-5 /hpf Urine RBC (Auto) >30 0-4 /hpf Urine Hyaline Casts (Auto) 0 0-5 /lpf Urine Epithelial Cells (Auto) 10-20 0-5 /lpf Urine Bacteria (Auto) NEG NEG Urine Pathogenic Casts 0 /lpf Urine Yeast (Auto) NONE PRSENT Troponin I 0.031 0-0.045 ng/ml Bedside Glucose 116 70-99 mg/dl White Blood Count 8.48 4.8-10.8 K/uL Red Blood Count 3.85 4.7-6.1 M/uL Hemoglobin 11.5 14.0-18.0 g/dL Hematocrit 37.8 42-52 % Mean Corpuscular Volume 98.2 80-100 fL Mean Corpuscular Hemoglobin 29.9 25-34 pg Mean Corpuscular Hemoglobin Concent 30.4 32-36 g/dl RDW Standard Deviation 60.2 36.4-46.3 fL RDW Coefficient of Variation 17.1 11.5-14.5 % Platelet Count 117 130-400 K/uL Mean Platelet Volume 10.2 7.4-10.4 fL Sodium Level 138 136-145 mmol/L Potassium Level 4.2 3.5-5.1 mmol/L Chloride Level 99 98-107 mmol/L Carbon Dioxide Level 29 21-32 mmol/L Anion Gap 9.0 3-11 mmol/L Blood Urea Nitrogen 39 7-18 mg/dl Creatinine 6.69 0.60-1.40 mg/dl Est Creatinine Clear Calc Drug Dose 11.0 ml/min Estimated GFR () 8.0 Estimated GFR (Non- 6.9 BUN/Creatinine Ratio 5.8 10-20 Random Glucose 116 70-99 mg/dl Calcium Level 8.5 8.5-10.1 mg/dl Test 12/08/17 07:51 12/08/17 13:00 12/08/17 16:32 Range/Units Bedside Glucose 137 102 153 70-99 mg/dl Microbiology Results 12/07/17 Urine Culture - Preliminary, Resulted PIN-POINT GROWTH PRESENT, REINCUBATING.
[2017-12-08] MEDS: SIMVASTATIN 20 MG TAB PO SCH (21:30)
[2017-12-08] MEDS: GABAPENTIN 300 MG CAP PO SCH (21:31)
[2017-12-08] MEDS: FINASTERIDE 5 MG TAB PO SCH (21:31)
[2017-12-08] MEDS ORDERED: OXYCODONE HCL IR 5 MG TAB (IMMEDIATE RELEASE) PO ONE (23:15)
[2017-12-09] VITALS (25 sets, daily range): BP systolic 65–126; BP diastolic 35–57; PULSE 51–92; TEMP 36.4–36.5; O2SAT 92–96
[2017-12-09] MEDS: CEFTRIAXONE SOD INJ 1 GM in DEXTROSE 5% ADD-VANTAGE 50ML 50 ML IV SCH (05:41)
--- NOTE | 2017-12-09 07:15 | Nephrology Progress Note ---
Nephrology Progress Note Date of Service: December 09, 2017. Subjective 87 yo male with esrd who presented with abdominal pain and n/v. pts pain is improving. no more nausea or vomiting. tolerated dialysis well yesterday. removed a liter. pt comfortable this morning. has some tenderness in the abdomen but better compared to admission. Objective Date Time Temp Pulse Resp B/P (MAP) Pulse Ox O2 Delivery O2 Flow Rate FiO2 12/09/17 00:00 36.5 80 20 126/54 (78) 95 2.0 12/08/17 23:59 Nasal Cannula 2.0 Humidified Oxygen 12/08/17 21:29 88 115/57 (76) 94 2.0 12/08/17 17:08 69 103/63 (76) 12/08/17 16:01 67 12/08/17 16:00 96 Nasal Cannula 2.0 12/08/17 14:42 36.4 77 20 92/52 (65) 96 12/08/17 13:40 36.5 69 121/59 (79) 12/08/17 13:10 130/63 (85) 12/08/17 12:15 70 120/56 12/08/17 12:00 64 93/55 12/08/17 11:45 68 105/54 12/08/17 11:30 71 118/51 12/08/17 11:15 65 114/49 12/08/17 11:00 72 114/48 12/08/17 10:45 73 113/57 12/08/17 10:30 61 113/55 12/08/17 10:15 68 113/38 12/08/17 10:00 70 110/47 12/08/17 09:45 63 106/48 12/08/17 09:30 67 113/48 12/08/17 09:17 67 102/48 12/08/17 09:10 36.5 66 110/47 (68) 12/08/17 08:00 Nasal Cannula 2.0 12/08/17 07:32 36.8 64 20 92/52 (65) 94 2.0 Physical Exam: General-aaox3 Eyes-no scleral icterus ENT-mmm Neck-supple Lungs-cta Heart-rate controlled Abdomen-bs+-mild tenderness in the lower quadrants Extremities-no edema Neuro-nonfocal Current Inpatient Medications Medications (Trade) Dose Ordered Sig/Ronak Route Start Time Stop Time Status Last Admin Dose Admin Albuterol (Ventolin Hfa Inhaler) 2 puffs QID INH 12/08/17 09:00 01/07/18 08:59 12/08/17 21:32 2 PUFFS Amiodarone HCl (Cordarone Tab) 200 mg DAILY PO 12/08/17 09:00 01/07/18 08:59 12/08/17 08:02 200 MG Apixaban (Eliquis Tab) 2.5 mg BID PO 12/08/17 09:00 01/07/18 08:59 12/08/17 21:31 2.5 MG Aspirin (Ecotrin Tab) 81 mg QAM PO 12/08/17 09:00 01/07/18 08:59 12/08/17 08:00 81 MG Calcium Acetate (Phoslo Cap) 667 mg TIDM PO 12/08/17 08:00 01/07/18 07:59 12/08/17 17:11 667 MG Digoxin (Lanoxin Tab) 0.125 mg MoWeFr@1600 PO 12/08/17 16:00 01/07/18 15:59 12/08/17 16:01 0.125 MG Docusate Sodium (coLACE CAP) 100 mg BID PO 12/08/17 09:00 01/07/18 08:59 12/08/17 21:31 100 MG Finasteride (Proscar Tab) 5 mg HS PO 12/08/17 21:00 01/07/18 20:59 12/08/17 21:31 5 MG Salmeterol Xinafoate/ Fluticasone (Advair Diskus 250/50 Inh) 1 puff BID INH 12/08/17 09:00 01/07/18 08:59 12/08/17 21:31 1 PUFF Furosemide (Lasix Tab) 80 mg BID17 PO 12/08/17 09:00 01/07/18 08:59 12/08/17 17:13 80 MG Gabapentin (Neurontin Cap) 300 mg HS PO 12/08/17 21:00 01/07/18 20:59 12/08/17 21:31 300 MG Metoprolol Succinate (Toprol Xl Tab) 25 mg BID PO 12/08/17 09:00 01/07/18 08:59 12/08/17 21:31 25 MG Midodrine (Proamatine Tab) 2.5 mg TID@0800,1200,1700 PO 12/08/17 08:00 01/07/18 07:59 12/08/17 17:13 2.5 MG Nitroglycerin (Nitrostat Tab) 0.4 mg UD PRN UT 12/07/17 22:30 01/06/18 22:29 Simvastatin (Zocor Tab) 20 mg QPM PO 12/08/17 21:00 01/07/18 20:59 12/08/17 21:30 20 MG Tramadol HCl (Ultram Tab) 50 mg Q8 PRN PO 12/07/17 22:45 01/06/18 22:44 12/08/17 21:33 50 MG Insulin Aspart (novoLOG ASPART) SLIDING SCALE If C... ACHS SC 12/08/17 06:30 01/07/18 06:29 12/08/17 13:15 2 UNITS Glucose (Glucose 40% Gel) 15-30 GRAMS 15 GRAMS... UD PRN PO 12/08/17 00:30 01/07/18 00:29 Glucose (Glucose Chew Tab) 4-8 Tablets 4 Tabl... UD PRN PO 12/08/17 00:30 01/07/18 00:29 Dextrose (Dextrose 50% 50ML Syringe) 25-50ML 25ML FOR ... UD PRN IV 12/08/17 00:30 01/07/18 00:29 Glucagon (Glucagon Inj) 1 mg UD PRN SQ 12/08/17 00:30 01/07/18 00:29 Carbohydrates (Carbohydrates For Hypoglycemia) 15-30 GRAMS 15 grams if BSG 54-69... UD PRN PO 12/08/17 00:30 01/07/18 00:29 Ceftriaxone Sodium 1 gm/ Dextrose 50 ml @ 100 mls/hr Q24H IV 12/08/17 04:00 12/18/17 03:59 12/09/17 05:41 100 MLS/HR Epoetin Alexis (Procrit Inj) 10,000 units TODAY@0800 IV. 12/09/17 08:00 12/09/17 16:00 Last 24 Hours Test 12/08/17 07:51 12/08/17 13:00 12/08/17 16:32 12/08/17 19:16 Bedside Glucose 137 mg/dl 102 mg/dl 153 mg/dl Urine Color ORANGE Urine Appearance TURBID Urine pH 5.0 Urine Specific [place] 1.020 Urine Protein 1+ Urine Glucose (UA) NEG Urine Ketones NEG Urine Occult Blood 2+ Urine Nitrite POS Urine Bilirubin NEG Urine Urobilinogen NEG Urine Leukocyte Esterase MODERATE Urine WBC (Auto) >30 /hpf Urine RBC (Auto) >30 /hpf Urine Hyaline Casts (Auto) 10-30 /lpf Urine Epithelial Cells (Auto) >30 /lpf Urine Bacteria (Auto) NEG Urine Renal Epithelial Cells 10-20 /lpf Urine Pathogenic Casts 0-3 RBC CASTS /lpf Urine Yeast (Auto) Test 12/08/17 20:21 Bedside Glucose 125 mg/dl Assessment & Plan ESRD-would like to attempt dialysis again today since he is normally t-h-s schedule. will again try to remove another liter although volume status is better. Anemia of renal failure-would like to redose procrit to keep hg between 10 and 11
[2017-12-09] MEDS ORDERED: EPOETIN ALFA 10,000 UNITS/ML VIAL IV. SCH (08:00)
[2017-12-09] MEDS: ALBUTEROL HFA 8 GM INHALER INH SCH ×4 (08:04→21:02)
[2017-12-09] MEDS: FLUTICASONE/SALMETEROL 250/50 (ADVAIR) 14 PUFF/1 INHALER INH SCH ×2 (08:04→21:02)
[2017-12-09] MEDS: CALCIUM ACETATE 667MG GELCAP PO SCH ×3 (08:45→17:13)
[2017-12-09] MEDS: MIDODRINE 2.5 MG TAB PO SCH ×3 (08:46→16:39)
[2017-12-09] MEDS: DOCUSATE SODIUM 100 MG CAP PO SCH ×2 (08:46→21:01)
--- NOTE | 2017-12-09 08:46 | DIAGNOSTIC IMAGING REPORT ---
DUPLEX MESENTERIC HISTORY: 87 years-old Male abdominal pain. more post prandal. arterial stenosis? Acute generalized abdominal pain COMPARISON: CT abdomen and pelvis 12/07/2017 TECHNIQUE: Multiple real-time sonographic images of the aorta and mesenteric vessels were obtained assessing grayscale appearance, color and spectral flow FINDINGS: The study is very limited secondary to patient body habitus and obscuring bowel gas with the aorta, celiac and super mesenteric arteries not well seen. The patient is also unable to hold his breath appropriately during the study. Plug flow noted within the aorta with peak systolic velocity of 73 cm/s. IMPRESSION: Limited study as above with nonvisualization of the celiac and superior mesenteric arteries. The above report was generated using voice recognition software. It may contain grammatical, syntax or spelling errors. Electronically signed by: Orlando Ty M.D. 12/09/2017 8:45 AM Dictated Date/Time: 12/09/2017 8:42 AM
[2017-12-09] MEDS: INSULIN ASPART 100 UNITS/ML 3 ML PEN SC SCH ×4 (09:05→21:00)
[2017-12-09] MEDS: AMIODARONE 200 MG TAB PO SCH (13:13)
[2017-12-09] MEDS: ASPIRIN 81 MG ECTAB PO SCH (13:14)
[2017-12-09] MEDS: APIXABAN 2.5 MG TAB PO SCH ×2 (13:14→21:02)
[2017-12-09] MEDS: METOPROLOL SUCC 25MG EXT REL TAB PO SCH ×2 (13:16→21:00)
[2017-12-09] MEDS: FUROSEMIDE 80 MG TAB PO SCH ×2 (13:29→16:37)
--- NOTE | 2017-12-09 17:03 | Progress Note ---
Internal Med Progress Note Date of Service: December 09, 2017. Provider Documentation: SUBJECTIVE: resting comfortably abdominal pain is better today eating ok no bowel movement since last two days afebrile no nausea OBJECTIVE: Vital Signs-as noted below Exam: General-alert and oriented. Not in distress ENT-Normal hearing Neck-no neck masses Lungs-cta b/l no wheezing no crackles Heart-s1 and s2 heard regular rate and rhythm no murmurs Abdomen-soft bowel sounds present tenderness on palpation of left lower abdomen , no distension Extremities-b/l lower extremity edema present chronic skin changes Neuro-alert and awake 'moves extremities Lab data as noted below. ASSESSMENT & PLAN: Abdominal pain/Nausea/Vomiting Possible gastroenteritis CT abd/pelvis showed Extensive colonic diverticulosis without CT evidence of acute diverticulitis. No bowel obstruction or focal bowel wall thickening. Zofran prn pain control Abdominal arterial US poor study pain is improving will monitor Dyspnea Acute systolic andf diastolic chf Possible related to volume overload Missed HD today CXR showed Cardiomegaly with unchanged mixed interstitial and alveolar opacities within a mid and lower lung zone predominant distribution suggesting mild pulmonary edema and/or pneumonitis. to continue Lasix 80mg BID s/p HD Continue oxygen supplement Continue neb treatment stable currently UTI Elevated WBC Afebrile UA positive for nitrite/Leukocytes and blood started on rocephin f/u cx no growth so far ESRD on HD , , Sat Missed today HD Consulted nephrology HD as per nephrology CAD s/p stent on aspirin, statin and metoprolol Stable Hypotension BP stable On Midodrine Afib Rate control on amiodarone, digoxin, metoprolol On anticoagulant with Apixaban DM type 2 Recent hba1c 5.7 on 11/30/17 Well controlled insulin sliding scale will monitor Constipation stool softeners Chronic Anemia Hgb stable DVT px on Apixaban CODE STATUS FULL CODE DISPOSITION to be determined Vital Signs: Date Time Temp Pulse Resp B/P (MAP) Pulse Ox O2 Delivery O2 Flow Rate FiO2 12/09/17 16:37 80 93/50 (64) 12/09/17 15:30 36.4 71 18 95/52 (66) 92 Nasal Cannula 2.0 12/09/17 13:11 66 88/50 (63) 12/09/17 13:00 36.4 66 99/57 (71) 12/09/17 12:30 64 85/51 12/09/17 12:15 65 93/52 12/09/17 12:00 77 90/51 12/09/17 11:45 66 94/46 12/09/17 11:30 81 96/46 12/09/17 11:15 67 84/45 12/09/17 11:05 75 70/47 12/09/17 11:00 88 65/38 12/09/17 10:45 92 77/35 12/09/17 10:30 91 81/36 12/09/17 10:22 66 81/36 12/09/17 10:15 58 75/38 12/09/17 10:00 63 84/43 12/09/17 09:45 60 91/47 12/09/17 09:37 51 86/44 12/09/17 09:28 36.5 66 79/45 (56) 12/09/17 08:00 Nasal Cannula 2.0 12/09/17 07:25 36.5 67 20 96/53 (67) 92 Nasal Cannula 2.0 12/09/17 00:00 36.5 80 20 126/54 (78) 95 2.0 12/08/17 23:59 Nasal Cannula 2.0 Humidified Oxygen 12/08/17 21:29 88 115/57 (76) 94 2.0 12/08/17 17:08 69 103/63 (76) Lab Results: Results Past 24 Hours Test 12/08/17 19:16 12/08/17 20:21 12/09/17 07:30 12/09/17 13:01 Range/Units Urine Color ORANGE Urine Appearance TURBID CLEAR Urine pH 5.0 4.5-7.5 Urine Specific [place] 1.020 1.000-1.030 Urine Protein 1+ NEG Urine Glucose (UA) NEG NEG Urine Ketones NEG NEG Urine Occult Blood 2+ NEG Urine Nitrite POS NEG Urine Bilirubin NEG NEG Urine Urobilinogen NEG NEG Urine Leukocyte Esterase MODERATE NEG Urine WBC (Auto) >30 0-5 /hpf Urine RBC (Auto) >30 0-4 /hpf Urine Hyaline Casts (Auto) 10-30 0-5 /lpf Urine Epithelial Cells (Auto) >30 0-5 /lpf Urine Bacteria (Auto) NEG NEG Urine Renal Epithelial Cells 10-20 0-5 /lpf Urine Pathogenic Casts 0-3 RBC CASTS 0 /lpf Urine Yeast (Auto) NONE PRSENT Bedside Glucose 125 110 129 70-99 mg/dl Test 12/09/17 16:31 Range/Units Bedside Glucose 160 70-99 mg/dl
[2017-12-09] MEDS: SIMVASTATIN 20 MG TAB PO SCH (21:01)
[2017-12-09] MEDS: FINASTERIDE 5 MG TAB PO SCH (21:02)
[2017-12-09] MEDS: GABAPENTIN 300 MG CAP PO SCH (21:02)
[2017-12-10 00:04] VITALS: BP 102/54; PULSE 68; TEMP 36.7; O2SAT 94
[2017-12-10] MEDS: CEFTRIAXONE SOD INJ 1 GM in DEXTROSE 5% ADD-VANTAGE 50ML 50 ML IV SCH (04:20)
[2017-12-10 07:03] VITALS: BP 125/67; PULSE 80; TEMP 36.9; O2SAT 91
[2017-12-10] MEDS: FLUTICASONE/SALMETEROL 250/50 (ADVAIR) 14 PUFF/1 INHALER INH SCH ×2 (08:03→20:33)
[2017-12-10] MEDS: FUROSEMIDE 80 MG TAB PO SCH ×2 (08:04→17:29)
[2017-12-10] MEDS: APIXABAN 2.5 MG TAB PO SCH ×2 (08:04→20:35)
[2017-12-10] MEDS: ASPIRIN 81 MG ECTAB PO SCH (08:04)
[2017-12-10] MEDS: ALBUTEROL HFA 8 GM INHALER INH SCH ×4 (08:05→20:33)
[2017-12-10] MEDS: CALCIUM ACETATE 667MG GELCAP PO SCH ×3 (08:05→17:29)
[2017-12-10] MEDS: DOCUSATE SODIUM 100 MG CAP PO SCH ×2 (08:05→20:35)
[2017-12-10] MEDS: MIDODRINE 2.5 MG TAB PO SCH ×3 (08:06→17:29)
[2017-12-10] MEDS: AMIODARONE 200 MG TAB PO SCH (08:08)
[2017-12-10] MEDS: INSULIN ASPART 100 UNITS/ML 3 ML PEN SC SCH ×4 (08:12→20:38)
[2017-12-10] MEDS: METOPROLOL SUCC 25MG EXT REL TAB PO SCH ×2 (08:14→20:33)
[2017-12-10] MEDS ORDERED: BISACODYL 10 MG SUPP PR STA (14:08)
[2017-12-10] MEDS ORDERED: LACTULOSE SYRUP 30 GM/45 ML UDP PO ONE (14:15)
[2017-12-10 15:18] VITALS: BP 134/76; PULSE 76; TEMP 36.3; O2SAT 97
[2017-12-10 16:00] VITALS: O2SAT 94
--- NOTE | 2017-12-10 16:13 | Progress Note ---
Internal Med Progress Note Date of Service: December 10, 2017. Provider Documentation: SUBJECTIVE: resting comfortably on the chair says abdominal pain improved eating ok but complains of urinary retention and constipation no nausea OBJECTIVE: Vital Signs-as noted below Exam: General-alert and oriented. Not in distress ENT-Normal hearing Neck-no neck masses Lungs-cta b/l no wheezing no crackles Heart-s1 and s2 heard regular rate and rhythm no murmurs Abdomen-soft bowel sounds present tenderness on palpation of left lower abdomen , no distension Extremities-b/l lower extremity edema present chronic skin changes Neuro-alert and awake 'moves extremities Lab data as noted below. ASSESSMENT & PLAN: Abdominal pain/Nausea/Vomiting Possible gastroenteritis CT abd/pelvis showed Extensive colonic diverticulosis without CT evidence of acute diverticulitis. No bowel obstruction or focal bowel wall thickening. Zofran prn pain control Abdominal arterial US poor study pain improved will monitor Dyspnea Acute systolic andf diastolic chf Possible related to volume overload Missed HD today CXR showed Cardiomegaly with unchanged mixed interstitial and alveolar opacities within a mid and lower lung zone predominant distribution suggesting mild pulmonary edema and/or pneumonitis. to continue Lasix 80mg BID s/p HD Continue oxygen supplement Continue neb treatment stable currently UTI Elevated WBC Afebrile UA positive for nitrite/Leukocytes and blood started on rocephin #3 f/u cx no growth so far to complete 5 days of abx ESRD on HD , Sat Missed today HD Consulted nephrology HD as per nephrology CAD s/p stent on aspirin, statin and metoprolol Stable Hypotension BP stable On Midodrine Urinary retention on Proscar will monitor with bladder scan Afib Rate control on amiodarone, digoxin, metoprolol On anticoagulant with Apixaban DM type 2 Recent hba1c 5.7 on 11/30/17 Well controlled insulin sliding scale will monitor Constipation stool softeners Chronic Anemia Hgb stable DVT px on Apixaban CODE STATUS FULL CODE DISPOSITION to be determined pt/ot Vital Signs: Date Time Temp Pulse Resp B/P (MAP) Pulse Ox O2 Delivery O2 Flow Rate FiO2 12/10/17 15:18 36.3 76 20 134/76 (95) 97 Room Air 12/10/17 08:00 Nasal Cannula 3.0 91 12/10/17 07:03 36.9 80 20 125/67 (86) 91 12/10/17 00:04 36.7 68 20 102/54 (70) 94 2.0 12/10/17 00:00 Nasal Cannula 2.0 12/09/17 22:15 74 93/50 (64) 12/09/17 22:15 91/48 (62) 12/09/17 20:57 67 77/37 (50) 12/09/17 16:37 80 93/50 (64) Lab Results: Results Past 24 Hours Test 12/09/17 16:31 12/09/17 20:01 12/10/17 07:43 12/10/17 11:26 Range/Units Bedside Glucose 160 128 130 173 70-99 mg/dl
[2017-12-10 17:28] VITALS: BP 101/48; PULSE 70
[2017-12-10 20:31] VITALS: BP 136/69; PULSE 67
[2017-12-10] MEDS: GABAPENTIN 300 MG CAP PO SCH (20:35)
[2017-12-10] MEDS: FINASTERIDE 5 MG TAB PO SCH (20:35)
[2017-12-10] MEDS: SIMVASTATIN 20 MG TAB PO SCH (20:36)
[2017-12-10] MEDS ORDERED: VANCOMYCIN CONSULT ACTIVE PRN (21:45)
[2017-12-10] MEDS ORDERED: VANCOMYCIN IV 2,000 MG in SODIUM CHLORIDE 0.9% 500ML 500 ML IV ONE (22:15)
[2017-12-11 00:16] VITALS: BP 106/57; PULSE 67; TEMP 36.5; O2SAT 92
[2017-12-11] MEDS: CEFTRIAXONE SOD INJ 1 GM in DEXTROSE 5% ADD-VANTAGE 50ML 50 ML IV SCH (04:53)
--- NOTE | 2017-12-11 07:06 | Nephrology Progress Note ---
Nephrology Progress Note Date of Service: December 11, 2017. Subjective 87 yo male with esrd who presented with abdominal pain and n/v. abldominal pain has improved. currently now concerned about constipation although had a bowel movement yesterday. pt also was urinating but that has stopped which is concerning to him as well. Objective Date Time Temp Pulse Resp B/P (MAP) Pulse Ox O2 Delivery O2 Flow Rate FiO2 12/11/17 00:30 Nasal Cannula 2.0 12/11/17 00:16 36.5 67 20 106/57 (73) 92 2.0 12/10/17 20:31 67 136/69 (91) 12/10/17 17:28 70 101/48 (65) 12/10/17 16:00 94 Nasal Cannula 2.5 12/10/17 15:18 36.3 76 20 134/76 (95) 97 Room Air 12/10/17 08:00 Nasal Cannula 3.0 91 Physical Exam: General-aaox3 Eyes-no scleral icterus ENT-mmm Neck-supple Lungs-+wheeze Heart-rate controlled Abdomen-bs+/soft/nt/nd Extremities-no edema Neuro-nonfocal Current Inpatient Medications Medications (Trade) Dose Ordered Sig/Ronak Route Start Time Stop Time Status Last Admin Dose Admin Albuterol (Ventolin Hfa Inhaler) 2 puffs QID INH 12/08/17 09:00 01/07/18 08:59 12/10/17 20:33 2 PUFFS Amiodarone HCl (Cordarone Tab) 200 mg DAILY PO 12/08/17 09:00 01/07/18 08:59 12/10/17 08:08 200 MG Apixaban (Eliquis Tab) 2.5 mg BID PO 12/08/17 09:00 01/07/18 08:59 12/10/17 20:35 2.5 MG Aspirin (Ecotrin Tab) 81 mg QAM PO 12/08/17 09:00 01/07/18 08:59 12/10/17 08:04 81 MG Calcium Acetate (Phoslo Cap) 667 mg TIDM PO 12/08/17 08:00 01/07/18 07:59 12/10/17 17:29 667 MG Digoxin (Lanoxin Tab) 0.125 mg MoWeFr@1600 PO 12/08/17 16:00 01/07/18 15:59 12/08/17 16:01 0.125 MG Docusate Sodium (coLACE CAP) 100 mg BID PO 12/08/17 09:00 01/07/18 08:59 12/10/17 20:35 100 MG Finasteride (Proscar Tab) 5 mg HS PO 12/08/17 21:00 01/07/18 20:59 12/10/17 20:35 5 MG Salmeterol Xinafoate/ Fluticasone (Advair Diskus 250/50 Inh) 1 puff BID INH 12/08/17 09:00 01/07/18 08:59 12/10/17 20:33 1 PUFF Furosemide (Lasix Tab) 80 mg BID17 PO 12/08/17 09:00 01/07/18 08:59 12/10/17 17:29 80 MG Gabapentin (Neurontin Cap) 300 mg HS PO 12/08/17 21:00 01/07/18 20:59 12/10/17 20:35 300 MG Metoprolol Succinate (Toprol Xl Tab) 25 mg BID PO 12/08/17 09:00 01/07/18 08:59 12/08/17 21:31 25 MG Midodrine (Proamatine Tab) 2.5 mg TID@0800,1200,1700 PO 12/08/17 08:00 01/07/18 07:59 12/10/17 17:29 2.5 MG Nitroglycerin (Nitrostat Tab) 0.4 mg UD PRN UT 12/07/17 22:30 01/06/18 22:29 Simvastatin (Zocor Tab) 20 mg QPM PO 12/08/17 21:00 01/07/18 20:59 12/10/17 20:36 20 MG Tramadol HCl (Ultram Tab) 50 mg Q8 PRN PO 12/07/17 22:45 01/06/18 22:44 12/08/17 21:33 50 MG Insulin Aspart (novoLOG ASPART) SLIDING SCALE If C... ACHS SC 12/08/17 06:30 01/07/18 06:29 12/10/17 12:18 4 UNITS Glucose (Glucose 40% Gel) 15-30 GRAMS 15 GRAMS... UD PRN PO 12/08/17 00:30 01/07/18 00:29 Glucose (Glucose Chew Tab) 4-8 Tablets 4 Tabl... UD PRN PO 12/08/17 00:30 01/07/18 00:29 Dextrose (Dextrose 50% 50ML Syringe) 25-50ML 25ML FOR ... UD PRN IV 12/08/17 00:30 01/07/18 00:29 Glucagon (Glucagon Inj) 1 mg UD PRN SQ 12/08/17 00:30 01/07/18 00:29 Carbohydrates (Carbohydrates For Hypoglycemia) 15-30 GRAMS 15 grams if BSG 54-69... UD PRN PO 12/08/17 00:30 01/07/18 00:29 Ceftriaxone Sodium 1 gm/ Dextrose 50 ml @ 100 mls/hr Q24H IV 12/08/17 04:00 12/18/17 03:59 12/11/17 04:53 100 MLS/HR Miscellaneous Information (Consult) 1 ea UD PRN N/A 12/10/17 21:45 01/09/18 21:44 Last 24 Hours Test 12/10/17 07:43 12/10/17 11:26 12/10/17 16:11 12/10/17 20:24 Bedside Glucose 130 mg/dl 173 mg/dl 132 mg/dl 154 mg/dl Test 12/11/17 04:44 Date/Time Source Procedure Growth Status 12/11/17 04:44 Blood Blood Culture Pending Ordered 12/11/17 04:44 Blood Blood Culture Pending Ordered Assessment & Plan ESRD-continue dialysis outpt schedule of t-h-s. plan on dialysis tomorrow. volume status is very good which is likely contributing to his decrease in urination and should improve somewhat as he starts to eat and drink better. however, stopping urination is the eventuality of dialysis. Constipation-likely from being on the dry side with the n/v. as he eats better and volume status improves, constipation should also improve. no fluid removal planned for tomorrow.
[2017-12-11 07:18] VITALS: BP 97/54; PULSE 70; TEMP 36.4; O2SAT 91
[2017-12-11 07:23] LABS: HEMATOCRIT 34.1 % (42-52); HEMOGLOBIN 10.6 g/dL (14.0-18.0); MEAN CELL VOLUME 96.3 fL (80-100); MEAN CORPUSCULAR HEMOGLOBIN 29.9 pg (25-34); MEAN CORPUSCULAR HGB CONC 31.1 g/dl (32-36); RED CELL DISTRIBUTION WIDTH CV 16.6 % (11.5-14.5); RED CELL DISTRIBUTION WIDTH SD 58.5 fL (36.4-46.3); WHITE BLOOD COUNT 6.43 K/uL (4.8-10.8)
[2017-12-11 07:43] LABS: PLATELET COUNT 86 K/uL (130-400)
[2017-12-11 07:44] LABS: BASO % 0.5 %; BASO ABS # 0.03 K/uL (0-0.2); EOS % 2.6 %; EOS ABS # 0.17 K/uL (0-0.5); IG# 0.04 K/uL (0.00-0.02); LYMPH % 10.6 %; LYMPH ABS # 0.68 K/uL (1.2-3.4); MEAN PLATELET VOLUME 10.6 fL (7.4-10.4); MONO % 9.6 %; MONO ABS # 0.62 K/uL (0.11-0.59); NEUT % 76.1 %; NEUT ABS # 4.89 K/uL (1.4-6.5)
[2017-12-11 07:51] LABS: CALCIUM 8.2 mg/dl (8.5-10.1); CREATININE 6.03 mg/dl (0.60-1.40); POTASSIUM 4.5 mmol/L (3.5-5.1)
[2017-12-11] MEDS: DOCUSATE SODIUM 100 MG CAP PO SCH ×2 (08:02→20:46)
[2017-12-11] MEDS: APIXABAN 2.5 MG TAB PO SCH ×2 (08:03→20:48)
[2017-12-11] MEDS: ASPIRIN 81 MG ECTAB PO SCH (08:03)
[2017-12-11] MEDS: MIDODRINE 2.5 MG TAB PO SCH ×3 (08:03→16:44)
[2017-12-11] MEDS: FUROSEMIDE 80 MG TAB PO SCH ×2 (08:03→16:43)
[2017-12-11] MEDS: METOPROLOL SUCC 25MG EXT REL TAB PO SCH ×2 (08:04→20:42)
[2017-12-11] MEDS: CALCIUM ACETATE 667MG GELCAP PO SCH ×3 (08:05→17:27)
[2017-12-11] MEDS: FLUTICASONE/SALMETEROL 250/50 (ADVAIR) 14 PUFF/1 INHALER INH SCH ×2 (08:10→20:43)
[2017-12-11] MEDS: ALBUTEROL HFA 8 GM INHALER INH SCH ×4 (08:10→20:44)
[2017-12-11] MEDS: INSULIN ASPART 100 UNITS/ML 3 ML PEN SC SCH ×4 (08:13→20:49)
[2017-12-11] MEDS ORDERED: VANCOMYCIN IV 500 MG in SODIUM CHLORIDE 0.9% 250ML 250 ML IV ONE (09:00)
[2017-12-11] MEDS: AMIODARONE 200 MG TAB PO SCH (10:01)
[2017-12-11] MEDS ORDERED: SOAP SUDS ENEMA PR ONE ×2 (10:30→19:30)
[2017-12-11 15:31] VITALS: BP 122/66; PULSE 50; TEMP 36.5; O2SAT 98
[2017-12-11 16:00] VITALS: O2SAT 94
[2017-12-11] MEDS: DIGOXIN 0.125 MG TAB PO SCH (16:00)
[2017-12-11 16:35] VITALS: BP 109/60
--- NOTE | 2017-12-11 18:22 | Progress Note ---
Internal Med Progress Note Date of Service: December 11, 2017. Provider Documentation: SUBJECTIVE: resting comfortably on the chair denies abdominal pain eating ok had only small bowel movement last night refused enema still having urinary retention-. residual was 350ml but refused Straight cath today afebrile no sob or chest pain OBJECTIVE: Vital Signs-as noted below Exam: General-alert and oriented. Not in distress ENT-Normal hearing Neck-no neck masses Lungs-cta b/l no wheezing no crackles Heart-s1 and s2 heard regular rate and rhythm no murmurs Abdomen-soft bowel sounds present non tender, no distension Extremities-b/l lower extremity edema present chronic skin changes Neuro-alert and awake 'moves extremities Lab data as noted below. ASSESSMENT & PLAN: 87M with multiple medical problems presented with nausea/vomiting/abdominal pain ( from gastroenteritis vs UTI) and missed HD and was sob. Received HD and sob improved. Abdominal symptoms also improved and tolerating diet. But having constipation and urinary retention.Will consult urology for urinary retention. Receiving Rocephin for UTI. Also empirically started on iv vanco today for one bottle of gm positive cocci.Await PT/OT Abdominal pain/Nausea/Vomiting Possible gastroenteritis vs UTI CT abd/pelvis showed Extensive colonic diverticulosis without CT evidence of acute diverticulitis. No bowel obstruction or focal bowel wall thickening. Zofran prn pain control Abdominal arterial US poor study pain improved continue to monitor Dyspnea Acute systolic and diastolic chf Possible related to volume overload Missed HD on presentation CXR showed Cardiomegaly with unchanged mixed interstitial and alveolar opacities within a mid and lower lung zone predominant distribution suggesting mild pulmonary edema and/or pneumonitis. to continue Lasix 80mg BID s/p HD Continue oxygen supplement Continue inhalers stable currently UTI Elevated WBC Afebrile UA positive for nitrite/Leukocytes and blood started on rocephin #4 f/u cx no growth so far to complete 5 days of abx Bacteremia? one of the blood cx positive mostly contaminant empirically started on iv vancomycin f/u repeat cx ESRD on HD , Mon Consulted nephrology HD as per nephrology CAD s/p stent on aspirin, statin and metoprolol Stable Hypotension BP stable On Midodrine Urinary retention on Proscar will monitor with bladder scan straight cath as needed will consult urology Afib Rate control on amiodarone, digoxin, metoprolol On anticoagulant with Apixaban DM type 2 Recent hba1c 5.7 on 11/30/17 Well controlled insulin sliding scale will monitor Constipation stool softeners had small bowel movement last night as per nursing staff refused enema today Chronic Anemia Hgb stable DVT px on Apixaban CODE STATUS FULL CODE DISPOSITION to be determined pt/ot Vital Signs: Date Time Temp Pulse Resp B/P (MAP) Pulse Ox O2 Delivery O2 Flow Rate FiO2 12/11/17 16:35 109/60 (76) 12/11/17 16:00 58 12/11/17 15:31 36.5 50 18 122/66 (84) 98 Nasal Cannula 2.0 12/11/17 08:00 Nasal Cannula 2.0 12/11/17 07:18 36.4 70 20 97/54 (68) 91 Nasal Cannula 2.0 12/11/17 00:30 Nasal Cannula 2.0 12/11/17 00:16 36.5 67 20 106/57 (73) 92 2.0 12/10/17 20:31 67 136/69 (91) Lab Results: Results Past 24 Hours Test 12/10/17 20:24 12/11/17 07:07 12/11/17 07:30 12/11/17 11:23 Range/Units Bedside Glucose 154 110 138 70-99 mg/dl White Blood Count 6.43 4.8-10.8 K/uL Red Blood Count 3.54 4.7-6.1 M/uL Hemoglobin 10.6 14.0-18.0 g/dL Hematocrit 34.1 42-52 % Mean Corpuscular Volume 96.3 80-100 fL Mean Corpuscular Hemoglobin 29.9 25-34 pg Mean Corpuscular Hemoglobin Concent 31.1 32-36 g/dl Platelet Count 86 130-400 K/uL Mean Platelet Volume 10.6 7.4-10.4 fL Neutrophils (%) (Auto) 76.1 % Lymphocytes (%) (Auto) 10.6 % Monocytes (%) (Auto) 9.6 % Eosinophils (%) (Auto) 2.6 % Basophils (%) (Auto) 0.5 % Neutrophils # (Auto) 4.89 1.4-6.5 K/uL Lymphocytes # (Auto) 0.68 1.2-3.4 K/uL Monocytes # (Auto) 0.62 0.11-0.59 K/uL Eosinophils # (Auto) 0.17 0-0.5 K/uL Basophils # (Auto) 0.03 0-0.2 K/uL RDW Standard Deviation 58.5 36.4-46.3 fL RDW Coefficient of Variation 16.6 11.5-14.5 % Immature Granulocyte % (Auto) 0.6 % Immature Granulocyte # (Auto) 0.04 0.00-0.02 K/uL Platelet Estimate DECREASED Sodium Level 132 136-145 mmol/L Potassium Level 4.5 3.5-5.1 mmol/L Chloride Level 99 98-107 mmol/L Carbon Dioxide Level 25 21-32 mmol/L Anion Gap 8.0 3-11 mmol/L Blood Urea Nitrogen 39 7-18 mg/dl Creatinine 6.03 0.60-1.40 mg/dl Est Creatinine Clear Calc Drug Dose 12.3 ml/min Estimated GFR () 9.0 Estimated GFR (Non- 7.8 BUN/Creatinine Ratio 6.5 10-20 Random Glucose 115 70-99 mg/dl Calcium Level 8.2 8.5-10.1 mg/dl Random Vancomycin Level 15.6 mcg/ml Test 12/11/17 16:18 Range/Units Bedside Glucose 167 70-99 mg/dl Microbiology Results 12/11/17 Blood Culture, Received Pending 12/11/17 Blood Culture, Received Pending
[2017-12-11] MEDS: GABAPENTIN 300 MG CAP PO SCH (20:49)
[2017-12-11] MEDS: SIMVASTATIN 20 MG TAB PO SCH (20:49)
[2017-12-11] MEDS: FINASTERIDE 5 MG TAB PO SCH (20:49)
[2017-12-11 23:09] VITALS: BP 118/54; PULSE 55; TEMP 36.5; O2SAT 100
[2017-12-12] VITALS (23 sets, daily range): BP systolic 89–139; BP diastolic 47–82; PULSE 52–82; TEMP 36.3–37; O2SAT 90–100
[2017-12-12] MEDS: CEFTRIAXONE SOD INJ 1 GM in DEXTROSE 5% ADD-VANTAGE 50ML 50 ML IV SCH (03:10)
--- NOTE | 2017-12-12 07:50 | Nephrology Progress Note ---
Nephrology Progress Note Date of Service: December 12, 2017. Subjective 87 yo male with esrd who presented with abdominal pain and n/v. pt doing better. pt was concerned about constipation and limited urine output. yesterday , pt started to urinate better and pt did have a bm on monday-none yesterday. eating breakfast and appears back to baseline. Objective Date Time Temp Pulse Resp B/P (MAP) Pulse Ox O2 Delivery O2 Flow Rate FiO2 12/12/17 06:51 36.4 61 21 100/56 (71) 95 Nasal Cannula 2.0 12/12/17 00:00 Nasal Cannula 2.0 12/11/17 23:09 36.5 55 20 118/54 (75) 100 Room Air 4.0 12/11/17 16:35 109/60 (76) 12/11/17 16:00 94 Nasal Cannula 2.0 12/11/17 16:00 58 12/11/17 15:31 36.5 50 18 122/66 (84) 98 Nasal Cannula 2.0 12/11/17 08:00 Nasal Cannula 2.0 Physical Exam: General-aaox3 Eyes-no scleral icterus ENT-mmm Neck-supple Lungs-cta Heart-rate controlled Abdomen-bs+/soft/nt/nd Extremities-no edema Neuro-nonfocal Current Inpatient Medications Medications (Trade) Dose Ordered Sig/Ronak Route Start Time Stop Time Status Last Admin Dose Admin Albuterol (Ventolin Hfa Inhaler) 2 puffs QID INH 12/08/17 09:00 01/07/18 08:59 12/11/17 20:44 2 PUFFS Amiodarone HCl (Cordarone Tab) 200 mg DAILY PO 12/08/17 09:00 01/07/18 08:59 12/11/17 10:01 200 MG Apixaban (Eliquis Tab) 2.5 mg BID PO 12/08/17 09:00 01/07/18 08:59 12/11/17 20:48 2.5 MG Aspirin (Ecotrin Tab) 81 mg QAM PO 12/08/17 09:00 01/07/18 08:59 12/11/17 08:03 81 MG Calcium Acetate (Phoslo Cap) 667 mg TIDM PO 12/08/17 08:00 01/07/18 07:59 12/11/17 17:27 667 MG Digoxin (Lanoxin Tab) 0.125 mg MoWeFr@1600 PO 12/08/17 16:00 01/07/18 15:59 12/08/17 16:01 0.125 MG Docusate Sodium (coLACE CAP) 100 mg BID PO 12/08/17 09:00 01/07/18 08:59 12/11/17 20:46 100 MG Finasteride (Proscar Tab) 5 mg HS PO 12/08/17 21:00 01/07/18 20:59 12/11/17 20:49 5 MG Salmeterol Xinafoate/ Fluticasone (Advair Diskus 250/50 Inh) 1 puff BID INH 12/08/17 09:00 01/07/18 08:59 12/11/17 20:43 1 PUFF Furosemide (Lasix Tab) 80 mg BID17 PO 12/08/17 09:00 01/07/18 08:59 12/11/17 16:43 80 MG Gabapentin (Neurontin Cap) 300 mg HS PO 12/08/17 21:00 01/07/18 20:59 12/11/17 20:49 300 MG Metoprolol Succinate (Toprol Xl Tab) 25 mg BID PO 12/08/17 09:00 01/07/18 08:59 12/11/17 08:04 25 MG Midodrine (Proamatine Tab) 2.5 mg TID@0800,1200,1700 PO 12/08/17 08:00 01/07/18 07:59 12/11/17 16:44 2.5 MG Nitroglycerin (Nitrostat Tab) 0.4 mg UD PRN UT 12/07/17 22:30 01/06/18 22:29 Simvastatin (Zocor Tab) 20 mg QPM PO 12/08/17 21:00 01/07/18 20:59 12/11/17 20:49 20 MG Tramadol HCl (Ultram Tab) 50 mg Q8 PRN PO 12/07/17 22:45 01/06/18 22:44 12/08/17 21:33 50 MG Insulin Aspart (novoLOG ASPART) SLIDING SCALE If C... ACHS SC 12/08/17 06:30 01/07/18 06:29 12/11/17 17:36 3 UNITS Glucose (Glucose 40% Gel) 15-30 GRAMS 15 GRAMS... UD PRN PO 12/08/17 00:30 01/07/18 00:29 Glucose (Glucose Chew Tab) 4-8 Tablets 4 Tabl... UD PRN PO 12/08/17 00:30 01/07/18 00:29 Dextrose (Dextrose 50% 50ML Syringe) 25-50ML 25ML FOR ... UD PRN IV 12/08/17 00:30 01/07/18 00:29 Glucagon (Glucagon Inj) 1 mg UD PRN SQ 12/08/17 00:30 01/07/18 00:29 Carbohydrates (Carbohydrates For Hypoglycemia) 15-30 GRAMS 15 grams if BSG 54-69... UD PRN PO 12/08/17 00:30 01/07/18 00:29 Ceftriaxone Sodium 1 gm/ Dextrose 50 ml @ 100 mls/hr Q24H IV 12/08/17 04:00 12/18/17 03:59 12/12/17 03:10 100 MLS/HR Miscellaneous Information (Consult) 1 ea UD PRN N/A 12/10/17 21:45 01/09/18 21:44 Epoetin Alexis (Procrit Inj) 10,000 units ONE ONCE IV. 12/12/17 07:45 12/12/17 07:46 UNV Last 24 Hours Test 12/11/17 11:23 12/11/17 16:18 12/11/17 20:12 12/12/17 06:43 Bedside Glucose 138 mg/dl 167 mg/dl 123 mg/dl Test 12/12/17 07:01 Bedside Glucose 107 mg/dl Assessment & Plan ESRD-continue dialysis outpt schedule of t-h-s. plan on dialysis today with no fluid removal. still feel pt is on the dry side. Anemia-hg levels are stable. to redose procrit today for goal hg of 10 to 11.
[2017-12-12] MEDS ORDERED: EPOETIN ALFA 10,000 UNITS/ML VIAL IV. SCH (08:00)
[2017-12-12] MEDS: CALCIUM ACETATE 667MG GELCAP PO SCH ×3 (08:11→17:05)
[2017-12-12] MEDS: FLUTICASONE/SALMETEROL 250/50 (ADVAIR) 14 PUFF/1 INHALER INH SCH ×2 (08:12→21:25)
[2017-12-12] MEDS: ALBUTEROL HFA 8 GM INHALER INH SCH ×2 (08:13→12:45)
[2017-12-12] MEDS: MIDODRINE 2.5 MG TAB PO SCH ×3 (08:15→17:06)
[2017-12-12] MEDS: INSULIN ASPART 100 UNITS/ML 3 ML PEN SC SCH ×4 (08:17→21:00)
--- NOTE | 2017-12-12 08:36 | Pharmacy Progress Note ---
Pharmacy Abx Dose Short Note Date of Service December 12, 2017. Assessment & Plan Assessment 87 year old male receiving vancomycin for treatment of ? bacteremia (1 of 2 blood cultures positive, repeat pending) Day # 3 of therapy Patient also receiving Rocephin for possible UTI Day #5 of 5 of therapy Plan Vancomycin * Random pre-HD level of 17.4 mcg/mL is therapeutic * Patient will need re-dosed after dialysis today * Give 750 mg x 1 after dialysis * Random pre-HD level ordered prior to next dialysis on 12/14 AM Rocephin * Pharmacy not consulted to dose but is appropriate; should be able to d/c today as patient has received 5 days of therapy Pharmacy will continue to follow and will adjust dose/frequency as necessary. Thank you.
[2017-12-12] MEDS: DOCUSATE SODIUM 100 MG CAP PO SCH ×2 (12:37→21:25)
[2017-12-12] MEDS: ASPIRIN 81 MG ECTAB PO SCH (12:37)
[2017-12-12] MEDS: METOPROLOL SUCC 25MG EXT REL TAB PO SCH ×2 (12:38→21:00)
[2017-12-12] MEDS: APIXABAN 2.5 MG TAB PO SCH ×2 (12:38→21:25)
[2017-12-12] MEDS: FUROSEMIDE 80 MG TAB PO SCH ×2 (12:39→17:06)
[2017-12-12] MEDS: AMIODARONE 200 MG TAB PO SCH (12:40)
[2017-12-12] MEDS ORDERED: VANCOMYCIN IV 750 MG in SODIUM CHLORIDE 0.9% 250ML 250 ML IV ONE (14:00)
[2017-12-12] MEDS ORDERED: MILK AND MOLASSES ENEMA PR PRN (15:00)
--- NOTE | 2017-12-12 15:29 | Progress Note ---
Medicine Progress Note Date & Time of Visit: December 12, 2017 at 15:02. Subjective 87-year-old man with multiple medical problems including ESRD on hemodialysis presented to the hospital within 1 week of discharge with abdominal discomfort, nausea, vomiting, shortness of breath. Patient denied any urinary tract infection symptoms but was placed on Rocephin empirically pending culture results. These were negative on 12/07-will DC Rocephin at this time. He continues to have diffuse abdominal discomfort on exam today and reports no bowel movement in the last 3 days. He states he feels full of stool. He is tolerating p.o. per his nurse, completing 90% of meals. He ambulated around the hallways with PT today-he states he felt unsteady on his feet, however. He denies any vomiting or shortness of breath at this time. He was initially thought to be volume overloaded however nephrology felt that he was euvolemic, knowing his recent history of aggressive diuresis and a half total from 11/30 to . He initially had urinary retention but has started to void spontaneously today. He is otherwise asymptomatic at this time. Objective Last 8 Hrs Date Time Temp Pulse Resp B/P (MAP) Pulse Ox O2 Delivery O2 Flow Rate FiO2 12/12/17 14:51 36.5 67 16 131/70 (90) 96 Nasal Cannula 2.0 12/12/17 13:01 36.8 55 18 98/47 (64) 100 Room Air 12/12/17 11:58 67 111/59 12/12/17 11:52 36.3 67 111/59 (76) 12/12/17 11:45 71 128/71 12/12/17 11:30 61 124/81 12/12/17 11:15 62 128/82 12/12/17 11:00 68 135/74 12/12/17 10:45 67 124/73 12/12/17 10:30 67 132/69 12/12/17 10:15 81 112/60 12/12/17 10:00 67 139/76 12/12/17 09:45 59 110/53 12/12/17 09:30 67 105/55 12/12/17 09:15 56 89/56 12/12/17 09:10 Nasal Cannula 2.0 12/12/17 09:00 53 99/56 12/12/17 08:57 64 91/49 12/12/17 08:45 36.5 62 89/49 (62) Physical Exam: GEN: obese, in no acute distress, alert and appropriate HEENT: NC/AT, normal sclerae, MMM CARDIO: reg rate, S1/2 heard without m/g/r LUNGS: CTA bilaterally, no crackles, rales or wheezes, good diaphragmatic excursion ABD: soft, diffuse tenderness to palpation generally, non-distended, no rebound or guarding, +BS EXTREMITY: +fistula with overlying stiches in place. No LE swelling or edema, extremities are warm and well-perfused NEURO: CN 2-12 grossly intact MUSC: moves around bed with minimal assistance, moves all extremities equally, no gross focal deficits. SKIN: warm and dry Laboratory Results: 12/11/17 07:07 Red Blood Count 3.54, Mean Corpuscular Volume 96.3, Mean Corpuscular Hemoglobin 29.9, Mean Corpuscular Hemoglobin Concent 31.1, Mean Platelet Volume 10.6, Neutrophils (%) (Auto) 76.1, Lymphocytes (%) (Auto) 10.6, Monocytes (%) (Auto) 9.6, Eosinophils (%) (Auto) 2.6, Basophils (%) (Auto) 0.5, Neutrophils # (Auto) 4.89, Lymphocytes # (Auto) 0.68, Monocytes # (Auto) 0.62, Eosinophils # (Auto) 0.17, Basophils # (Auto) 0.03 12/11/17 07:07 Test 12/07/17 16:25 12/07/17 16:30 12/07/17 20:11 12/08/17 19:16 Prothrombin Time 11.0 SECONDS (9.0-12.0) Prothromb Time International Ratio 1.0 (0.9-1.1) Lactic Acid Level 1.2 mmol/L (0.4-2.0) Phosphorus Level 5.4 mg/dl (2.5-4.9) Magnesium Level 2.3 mg/dl (1.8-2.4) Total Bilirubin 0.6 mg/dl (0.2-1) Direct Bilirubin 0.1 mg/dl (0-0.2) Aspartate Amino Transf (AST/SGOT) 9 U/L (15-37) Alanine Aminotransferase (ALT/SGPT) 11 U/L (12-78) Alkaline Phosphatase 55 U/L (45-117) Total Protein 8.2 gm/dl (6.4-8.2) Albumin 3.5 gm/dl (3.4-5.0) Lipase 174 U/L (73-393) Digoxin Level 1.2 ng/ml (0.8-2.0) Influenza Type A (RT-PCR) Neg for Influ A (NEG) Influenza Type B (RT-PCR) Neg for Influ B (NEG) Troponin I 0.031 ng/ml (0-0.045) Urine Color ORANGE Urine Appearance TURBID (CLEAR) Urine pH 5.0 (4.5-7.5) Urine Specific [place] 1.020 (1.000-1.030) Urine Protein 1+ (NEG) Urine Glucose (UA) NEG (NEG) Urine Ketones NEG (NEG) Urine Occult Blood 2+ (NEG) Urine Nitrite POS (NEG) Urine Bilirubin NEG (NEG) Urine Urobilinogen NEG (NEG) Urine Leukocyte Esterase MODERATE (NEG) Urine WBC (Auto) >30 /hpf (0-5) Urine RBC (Auto) >30 /hpf (0-4) Urine Hyaline Casts (Auto) 10-30 /lpf (0-5) Urine Epithelial Cells (Auto) >30 /lpf (0-5) Urine Bacteria (Auto) NEG (NEG) Urine Renal Epithelial Cells 10-20 /lpf (0-5) Urine Pathogenic Casts 0-3 RBC CASTS /lpf (0) Urine Yeast (Auto) (NONE PRSENT) Test 12/11/17 07:07 12/12/17 06:43 12/12/17 12:35 White Blood Count 6.43 K/uL (4.8-10.8) Red Blood Count 3.54 M/uL (4.7-6.1) Hemoglobin 10.6 g/dL (14.0-18.0) Hematocrit 34.1 % (42-52) Mean Corpuscular Volume 96.3 fL (80-100) Mean Corpuscular Hemoglobin 29.9 pg (25-34) Mean Corpuscular Hemoglobin Concent 31.1 g/dl (32-36) Platelet Count 86 K/uL (130-400) Mean Platelet Volume 10.6 fL (7.4-10.4) Neutrophils (%) (Auto) 76.1 % Lymphocytes (%) (Auto) 10.6 % Monocytes (%) (Auto) 9.6 % Eosinophils (%) (Auto) 2.6 % Basophils (%) (Auto) 0.5 % Neutrophils # (Auto) 4.89 K/uL (1.4-6.5) Lymphocytes # (Auto) 0.68 K/uL (1.2-3.4) Monocytes # (Auto) 0.62 K/uL (0.11-0.59) Eosinophils # (Auto) 0.17 K/uL (0-0.5) Basophils # (Auto) 0.03 K/uL (0-0.2) RDW Standard Deviation 58.5 fL (36.4-46.3) RDW Coefficient of Variation 16.6 % (11.5-14.5) Immature Granulocyte % (Auto) 0.6 % Immature Granulocyte # (Auto) 0.04 K/uL (0.00-0.02) Platelet Estimate DECREASED Anion Gap 8.0 mmol/L (3-11) Est Creatinine Clear Calc Drug Dose 12.3 ml/min Estimated GFR () 9.0 Estimated GFR (Non- 7.8 BUN/Creatinine Ratio 6.5 (10-20) Calcium Level 8.2 mg/dl (8.5-10.1) Random Vancomycin Level 17.4 mcg/ml Bedside Glucose 107 mg/dl (70-99) Date/Time Source Procedure Growth Status 12/11/17 07:08 Blood Blood Culture Pending Received 12/07/17 18:36 Urine,Catheterized Urine Culture - Final THREE TYPES OF ORGANISMS PRESENT, ALL... Complete Last 24 Hours Test 12/11/17 16:18 12/11/17 20:12 12/12/17 06:43 12/12/17 07:01 Bedside Glucose 167 mg/dl 123 mg/dl 107 mg/dl Random Vancomycin Level 17.4 mcg/ml Test 12/12/17 12:35 Bedside Glucose 107 mg/dl Assessment & Plan 87-year-old man with multiple medical problems including ESRD on hemodialysis presented to the hospital within 1 week of discharge with abdominal discomfort, nausea, vomiting, shortness of breath. Patient denied any urinary tract infection symptoms but was placed on Rocephin empirically pending culture results. These were negative on 5/10-will DC Rocephin at this time. He continues to have diffuse abdominal discomfort on exam today and reports no bowel movement in the last 3 days. He states he feels full of stool. He is tolerating p.o. per his nurse, completing 90% of meals. He ambulated around the hallways with PT today-he states he felt unsteady on his feet, however. He denies any vomiting or shortness of breath at this time. He was initially thought to be volume overloaded however nephrology felt that he was euvolemic, knowing his recent history of aggressive diuresis and a half total from 11/30 to . He initially had urinary retention but has started to void spontaneously today. He is otherwise asymptomatic at this time. 1. ESRD-euvolemic, hemodialysis was performed today with no fluid removal. Nephrology feels he is slightly dry. Will continue Lasix p.o. twice daily. Continue HD 3 times weekly. 2. 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 Lactate was negative and CT scan was unremarkable. Insetting of initial nausea and vomiting acute gastritis was considered and the symptoms have resolved with patient tolerating p.o. Will continue efforts to help him have bowel movement with laxatives and enemas as needed to see if this improves the abdominal pain. If not, may need to consult GI for assistance. 3. Shortness of breath-likely related to deconditioning as opposed to volume overload as nephrology felt he was euvolemic on admission and he left the hospital euvolemic 2 days prior to arrival. He is not reporting any acute shortness of breath and is on chronic oxygen supplementation. 4. Acute urinary retention-uncertain cause, however, patient is on hemodialysis so urine output may be slowing down. He has seemed to have spontaneous resolution of urinary retention today. Urology has been consulted. Again as above will discontinue antibiotics as UTI is not present on culture or symptomatically. Continue Proscar 5. Positive blood culture-bug cultured appears to be a contaminant, patient is on empiric vancomycin, will consult ID for recommendations. Repeat cultures are pending. Patient is asymptomatic including no fevers or chills at this time. 6. CAD status post stent-on aspirin, statin, metoprolol. Denies chest pain at this time 7. Chronic hypotension-BP stable on Midrin 8. Chronic atrial fibrillation-continue amiodarone, digoxin, metoprolol, apixaban. 9. Diabetes mellitus type [id number] with recent A1c of 5.7 on 11/30/17. Continue insulin sliding scale with coverage as needed 10. Anemia of CKD-continue Procrit per nephrology DVT prophylaxis-apixaban Full code Disposition-PT recommends progressive care facility with ongoing PT services, however, patient declines this and would prefer to go home. Will discuss this with family court counsellor Mary for him in the home environment. [facility] Consultants: Nephro-Dr. Kerrie Fraser Current Inpatient Medications: Current Inpatient Medications Medications (Trade) Dose Ordered Sig/Ronak Route Start Time Stop Time Status Last Admin Dose Admin Albuterol (Ventolin Hfa Inhaler) 2 puffs QID INH 12/08/17 09:00 01/07/18 08:59 12/12/17 12:45 2 PUFFS Amiodarone HCl (Cordarone Tab) 200 mg DAILY PO 12/08/17 09:00 01/07/18 08:59 12/12/17 12:40 200 MG Apixaban (Eliquis Tab) 2.5 mg BID PO 12/08/17 09:00 01/07/18 08:59 12/12/17 12:38 2.5 MG Aspirin (Ecotrin Tab) 81 mg QAM PO 12/08/17 09:00 01/07/18 08:59 12/12/17 12:37 81 MG Calcium Acetate (Phoslo Cap) 667 mg TIDM PO 12/08/17 08:00 01/07/18 07:59 12/12/17 12:39 667 MG Digoxin (Lanoxin Tab) 0.125 mg MoWeFr@1600 PO 12/08/17 16:00 01/07/18 15:59 12/08/17 16:01 0.125 MG Docusate Sodium (coLACE CAP) 100 mg BID PO 12/08/17 09:00 01/07/18 08:59 12/12/17 12:37 100 MG Finasteride (Proscar Tab) 5 mg HS PO 12/08/17 21:00 01/07/18 20:59 12/11/17 20:49 5 MG Salmeterol Xinafoate/ Fluticasone (Advair Diskus 250/50 Inh) 1 puff BID INH 12/08/17 09:00 01/07/18 08:59 12/12/17 08:12 1 PUFF Furosemide (Lasix Tab) 80 mg BID17 PO 12/08/17 09:00 01/07/18 08:59 12/12/17 12:39 80 MG Gabapentin (Neurontin Cap) 300 mg HS PO 12/08/17 21:00 01/07/18 20:59 12/11/17 20:49 300 MG Metoprolol Succinate (Toprol Xl Tab) 25 mg BID PO 12/08/17 09:00 01/07/18 08:59 12/12/17 12:38 25 MG Midodrine (Proamatine Tab) 2.5 mg TID@0800,1200,1700 PO 12/08/17 08:00 01/07/18 07:59 12/12/17 12:39 2.5 MG Nitroglycerin (Nitrostat Tab) 0.4 mg UD PRN UT 12/07/17 22:30 01/06/18 22:29 Simvastatin (Zocor Tab) 20 mg QPM PO 12/08/17 21:00 01/07/18 20:59 12/11/17 20:49 20 MG Tramadol HCl (Ultram Tab) 50 mg Q8 PRN PO 12/07/17 22:45 01/06/18 22:44 12/08/17 21:33 50 MG Insulin Aspart (novoLOG ASPART) SLIDING SCALE If C... ACHS SC 12/08/17 06:30 01/07/18 06:29 12/12/17 08:17 4 UNITS Glucose (Glucose 40% Gel) 15-30 GRAMS 15 GRAMS... UD PRN PO 12/08/17 00:30 01/07/18 00:29 Glucose (Glucose Chew Tab) 4-8 Tablets 4 Tabl... UD PRN PO 12/08/17 00:30 01/07/18 00:29 Dextrose (Dextrose 50% 50ML Syringe) 25-50ML 25ML FOR ... UD PRN IV 12/08/17 00:30 01/07/18 00:29 Glucagon (Glucagon Inj) 1 mg UD PRN SQ 12/08/17 00:30 01/07/18 00:29 Carbohydrates (Carbohydrates For Hypoglycemia) 15-30 GRAMS 15 grams if BSG 54-69... UD PRN PO 12/08/17 00:30 01/07/18 00:29 Ceftriaxone Sodium 1 gm/ Dextrose 50 ml @ 100 mls/hr Q24H IV 12/08/17 04:00 12/18/17 03:59 12/12/17 03:10 100 MLS/HR Miscellaneous Information (Consult) 1 ea UD PRN N/A 12/10/17 21:45 01/09/18 21:44 Epoetin Alexis (Procrit Inj) 10,000 units TODAY@0800 IV. 12/12/17 08:00 12/12/17 16:00 12/12/17 11:40 10,000 UNITS Vancomycin HCl 750 mg/Sodium Chloride 265 ml @ 125 mls/hr 1400 ONCE IV 12/12/17 14:00 12/12/17 16:07 12/12/17 14:24 125 MLS/HR Miscellaneous Medication (Milk And Molasses Enema) 1 ea DAILY PRN [place] 12/12/17 15:00 01/11/18 14:59 UNV
[2017-12-12] MEDS ORDERED: ALBUTEROL HFA 8 GM INHALER INH PRN (15:45)
[2017-12-12] MEDS: SIMVASTATIN 20 MG TAB PO SCH (21:25)
[2017-12-12] MEDS: GABAPENTIN 300 MG CAP PO SCH (21:25)
[2017-12-12] MEDS: FINASTERIDE 5 MG TAB PO SCH (21:25)
[2017-12-12] MEDS: POLYETHYLENE (MIRALAX) 17 GM PACK PO SCH (21:41)
[2017-12-13 07:00] LABS: CALCIUM 7.9 mg/dl (8.5-10.1); CREATININE 5.17 mg/dl (0.60-1.40); PHOSPHORUS 3.3 mg/dl (2.5-4.9); POTASSIUM 4.4 mmol/L (3.5-5.1)
[2017-12-13 07:17] VITALS: BP 102/50; PULSE 66; TEMP 36.8; O2SAT 90
[2017-12-13] MEDS: AMIODARONE 200 MG TAB PO SCH (08:08)
[2017-12-13] MEDS: METOPROLOL SUCC 25MG EXT REL TAB PO SCH ×2 (08:08→21:23)
[2017-12-13] MEDS: FLUTICASONE/SALMETEROL 250/50 (ADVAIR) 14 PUFF/1 INHALER INH SCH ×2 (08:08→21:19)
[2017-12-13] MEDS: DOCUSATE SODIUM 100 MG CAP PO SCH ×2 (08:09→21:21)
[2017-12-13] MEDS: FUROSEMIDE 80 MG TAB PO SCH ×2 (08:09→17:18)
[2017-12-13] MEDS: CALCIUM ACETATE 667MG GELCAP PO SCH ×3 (08:09→17:17)
[2017-12-13] MEDS: MIDODRINE 2.5 MG TAB PO SCH ×3 (08:09→17:18)
[2017-12-13] MEDS: ASPIRIN 81 MG ECTAB PO SCH (08:10)
[2017-12-13] MEDS: APIXABAN 2.5 MG TAB PO SCH ×2 (08:10→21:22)
[2017-12-13] MEDS: INSULIN ASPART 100 UNITS/ML 3 ML PEN SC SCH ×4 (08:15→21:00)
[2017-12-13] MEDS: POLYETHYLENE (MIRALAX) 17 GM PACK PO SCH (08:16)
[2017-12-13 08:54] VITALS: O2SAT 90
[2017-12-13] MEDS ORDERED: POLYETHYLENE (MIRALAX) 17 GM PACK PO PRN (09:00)
--- NOTE | 2017-12-13 09:02 | Urology Consultation ---
History General Date of Service: December 13, 2017. Chief Complaint: Urinary retention Primary Care Physician: Kam Dickey D.O. Pt seen a urologist before?: Yes (Dr. López) If yes, why?: BPH with lower urinary tract symptoms History of Present Illness 87-year-old male with history of end-stage renal disease on hemodialysis, A. fib , CHF, and BPH with LUTS admitted with abdominal pain and nausea vomiting. Urology consult if her urinary retention. The patient has a history of BPH for which she sees Dr. López. Currently on finasteride while inpatient. He has a history of previously taking Flomax, although he does not recall what medications he was taking at home. Noted to be hypotensive while inpatient. Patient also has a history of CIC. He does not recall the last time he needed to do this. He has a history of TURP in 2011. Patient noted to have a PVR of 600 mLs left last evening requiring straight cath. Currently he reports he is voiding without difficulty this morning. PVR noted to be 0 mLs. He denies any dysuria or hematuria. Urine culture from 12/07 noted to be negative. The patient also has a history of nephrolithiasis. CT scan on admission showing a 7 mm right renal stone and a 2 mm left renal stone along with multiple suspected renal cysts. Imaging Imaging: CT Laboratory Last 24 Hours Test 12/12/17 12:35 12/12/17 16:11 12/12/17 20:23 12/13/17 05:51 Bedside Glucose 107 mg/dl 150 mg/dl 150 mg/dl Sodium Level 130 mmol/L Potassium Level 4.4 mmol/L Chloride Level 96 mmol/L Carbon Dioxide Level 27 mmol/L Anion Gap 7.0 mmol/L Blood Urea Nitrogen 34 mg/dl Creatinine 5.17 mg/dl Est Creatinine Clear Calc Drug Dose 14.5 ml/min Estimated GFR () 10.9 Estimated GFR (Non- 9.4 BUN/Creatinine Ratio 6.5 Random Glucose 127 mg/dl Calcium Level 7.9 mg/dl Phosphorus Level 3.3 mg/dl Magnesium Level 1.9 mg/dl Test 12/13/17 07:13 Bedside Glucose 115 mg/dl Problem List Medical Problems: (1) Abdominal pain Status: Acute (2) ARF (acute renal failure) Status: Acute (3) Aspiration pneumonia of right lower lobe Status: Acute (4) CHF (congestive heart failure) Status: Acute (5) Dehydration Status: Acute (6) Diverticulitis Status: Acute (7) ESRD (end stage renal disease) Status: Acute (8) Fluid overload Status: Acute (9) Hyperglycemia Status: Acute (10) Hyperkalemia Status: Acute (11) Hypermagnesemia Status: Acute (12) Hypotension Status: Acute (13) Lower GI bleed Status: Acute (14) Pancreatitis Status: Acute (15) Renal failure Status: Acute (16) Renal failure Status: Acute (17) SOB (shortness of breath) Status: Acute (18) Urinary retention Status: Acute (19) UTI (urinary tract infection) Status: Acute Past History A Fib, BPH, congestive heart failure, COPD, coronary artery disease, diabetes, diverticulitis, high cholesterol, hypertension, pancreatitis, pneumonia ( Aspiration), renal disease (stage IV ), urinary tract infection, other ( Hyperkalemia, hypermagnesemia, hypotension, lower GI bleed, chronic hypoxemic respiratory failure) Past Surgical History: other (Hernia repair, TURP) Family History Heart disease Social History Hx Tobacco Use In Past Year?: No Smoking: no current use, other (former smoker) Alcohol: no current use Drug use: none Marital status: single Occupation status: unemployed, retired Immunizations History of Influenza Vaccine: Yes Influenza Vaccine Date: Jun 19, 2017 History of Tetanus Vaccine?: Yes Tetanus Immunization Date: Sep 19, 2013 History of Pneumococcal: Yes Pneumococcal Date: Oct 20, 2014 History of MDRO No Allergies Coded Allergies: Iodine (Verified Allergy, Severe, HIVES, 12/07/17) Heparin (Verified Allergy, Unknown, UNKNOWN, 12/07/17) OK TO GIVE DWELL Sulfa Antibiotics (Verified Allergy, Unknown, ENTERED SULFA- UNKNOWN, ) Medications Home Medications: Home Meds and Scripts Medications Dose Route/Sig Max Daily Dose Days Date Category Dose Instructions Digoxin 0.125 Mg Tab 1 Tab PO MWF 12/07/17 Reported 1600 Toprol-Xl (Metoprolol Succinate) 25 Mg Tabcr 25 Mg PO BID 12/07/17 Reported Cordarone (Amiodarone Hcl) 200 Mg Tab 200 Mg PO DAILY 12/07/17 Reported Ultram (Tramadol HCl) 50 Mg Tab 50 Mg PO Q8H PRN 11/30/17 Reported Oxygen Gas 2 Liters NA DIRECTED 11/30/17 Reported Roxicodone Ir (Oxycodone HCl) 5 Mg Tab 5 Mg PO Q4H PRN 11/30/17 Reported Licorice Root (Licorice) 1 Pow Pow 450 Mg PO DAILY 11/30/17 Reported Ventolin Hfa (Albuterol) 200 Puffs/98625 Mcg Aers 2 Puffs INH QID 11/30/17 Reported Miralax (Polyethylene Glycol 3350) 1 Pow Pow 17 Gm PO DAILY PRN 11/30/17 Reported Midodrine HCl (Midodrine) 2.5 Mg Tab 2.5 Mg PO TID 11/30/17 Reported Lantus (Insulin Glargine) 100 Unit/Ml Inj 48 Units SC BID 11/30/17 Reported Docusate Sodium 100 Mg Cap 100 Mg PO BID 11/30/17 Reported Phoslo 667 Mg (Calcium Acetate) 667 Mg Cap 1 Cap PO TIDM 11/30/17 Reported Eliquis (Apixaban) 2.5 Mg Tab 2.5 Mg PO BID 11/30/17 Reported Simvastatin 20 Mg Tab 20 Mg PO QPM 11/30/17 Reported Novolog Flexpen (Insulin Aspart) 100 Units/Ml Inj 4 Units SQ AC 08/11/17 Reported Neurontin (Gabapentin) 300 Mg Cap 300 Mg PO HS 05/24/17 Reported Advair Diskus 250/50 60 Dose (Fluticasone Prop/Salmeterol) 1 Ea Aerp 1 Puff INH BID 05/24/17 Reported Proscar (Finasteride) 5 Mg Tab 5 Mg PO HS 12/18/15 Reported Aspirin Ec (Aspirin) 81 Mg Tab 81 Mg PO QAM 07/24/14 Reported Furosemide 40 Mg Tab 80 Mg PO BID 07/24/14 Reported Nitrostat (Nitroglycerin) 0.4 Mg Tab 0.4 Mg UT UD PRN 08/16/10 Reported Inpatient Medications: Current Inpatient Medications Medications (Trade) Dose Ordered Sig/Ronak Route Start Time Stop Time Status Last Admin Dose Admin Amiodarone HCl (Cordarone Tab) 200 mg DAILY PO 12/08/17 09:00 01/07/18 08:59 12/13/17 08:08 200 MG Apixaban (Eliquis Tab) 2.5 mg BID PO 12/08/17 09:00 01/07/18 08:59 12/13/17 08:10 2.5 MG Aspirin (Ecotrin Tab) 81 mg QAM PO 12/08/17 09:00 01/07/18 08:59 12/13/17 08:10 81 MG Calcium Acetate (Phoslo Cap) 667 mg TIDM PO 12/08/17 08:00 01/07/18 07:59 12/13/17 08:09 667 MG Digoxin (Lanoxin Tab) 0.125 mg MoWeFr@1600 PO 12/08/17 16:00 01/07/18 15:59 12/08/17 16:01 0.125 MG Docusate Sodium (coLACE CAP) 100 mg BID PO 12/08/17 09:00 01/07/18 08:59 12/13/17 08:09 100 MG Finasteride (Proscar Tab) 5 mg HS PO 12/08/17 21:00 01/07/18 20:59 12/12/17 21:25 5 MG Salmeterol Xinafoate/ Fluticasone (Advair Diskus 250/50 Inh) 1 puff BID INH 12/08/17 09:00 01/07/18 08:59 12/13/17 08:08 1 PUFF Furosemide (Lasix Tab) 80 mg BID17 PO 12/08/17 09:00 01/07/18 08:59 12/13/17 08:09 80 MG Gabapentin (Neurontin Cap) 300 mg HS PO 12/08/17 21:00 01/07/18 20:59 12/12/17 21:25 300 MG Metoprolol Succinate (Toprol Xl Tab) 25 mg BID PO 12/08/17 09:00 01/07/18 08:59 12/13/17 08:08 25 MG Midodrine (Proamatine Tab) 2.5 mg TID@0800,1200,1700 PO 12/08/17 08:00 01/07/18 07:59 12/13/17 08:09 2.5 MG Nitroglycerin (Nitrostat Tab) 0.4 mg UD PRN [place] 12/07/17 22:30 01/06/18 22:29 Simvastatin (Zocor Tab) 20 mg QPM PO 12/08/17 21:00 01/07/18 20:59 12/12/17 21:25 20 MG Tramadol HCl (Ultram Tab) 50 mg Q8 PRN PO 12/07/17 22:45 01/06/18 22:44 12/08/17 21:33 50 MG Insulin Aspart (novoLOG ASPART) SLIDING SCALE If C... ACHS SC 12/08/17 06:30 01/07/18 06:29 12/13/17 08:15 4 UNITS Glucose (Glucose 40% Gel) 15-30 GRAMS 15 GRAMS... UD PRN PO 12/08/17 00:30 01/07/18 00:29 Glucose (Glucose Chew Tab) 4-8 Tablets 4 Tabl... UD PRN PO 12/08/17 00:30 01/07/18 00:29 Dextrose (Dextrose 50% 50ML Syringe) 25-50ML 25ML FOR ... UD PRN IV 12/08/17 00:30 01/07/18 00:29 Glucagon (Glucagon Inj) 1 mg UD PRN SQ 12/08/17 00:30 01/07/18 00:29 Carbohydrates (Carbohydrates For Hypoglycemia) 15-30 GRAMS 15 grams if BSG 54-69... UD PRN PO 12/08/17 00:30 01/07/18 00:29 Miscellaneous Information (Consult) 1 ea UD PRN N/A 12/10/17 21:45 01/09/18 21:44 Miscellaneous Medication (Milk And Molasses Enema) 1 ea DAILY PRN [place] 12/12/17 15:00 01/11/18 14:59 Albuterol (Ventolin Hfa Inhaler) 2 puffs QID PRN INH 12/12/17 15:45 01/07/18 08:59 12/13/17 08:08 2 PUFFS Polyethylene (Miralax Powder Packet) 17 gm DAILY PRN PO 12/13/17 09:00 12/15/17 08:59 UNV Review of Systems Review of Systems Constitutional: No fever, No chills Eyes: No double vision Neurological: No dizzy Endocrine: No excessive thirst Gastrointestinal: + constipation, No abdominal pain, No nausea, No vomiting Cardiovascular: No chest pain Respiratory: No shortness of breath Skin: No rash Musculoskeletal: + arthritis Male : No painful urination, No blood in urine Physical Exam Vital Signs: Vital Signs Past 12 Hours Date Time Temp Pulse Resp B/P (MAP) Pulse Ox O2 Delivery O2 Flow Rate FiO2 12/13/17 07:17 36.8 66 18 102/50 (67) 90 Nasal Cannula 3.0 12/13/17 00:00 Nasal Cannula 2.0 12/12/17 23:24 37.0 82 20 118/57 (77) 90 2.0 12/12/17 21:17 69 93/50 (64) Physical Exam: General Appearance: no apparent distress, + obese Eyes: bilateral eyes normal inspection ENT: hearing grossly normal Neck: no JVD Respiratory/Chest: no respiratory distress, no accessory muscle use Cardiovascular: no JVD Extremities: normal inspection Neurologic/Psychiatric: alert, normal mood/affect, oriented x 3 Skin: normal color Assessment & Plan Assessment & Plan A/P: Urinary retention Continue finasteride. Resume Flomax if hypotension resolves. We will check PVRs every shift. Straight cath for PVR greater than 300 mLs. Thanks for the consult. No further intervention at this time. Will continue to follow along with primary service. Will arrange for outpatient follow-up with Dr. López in 2 weeks.
--- NOTE | 2017-12-13 10:45 | Medical Consult ---
Consultation Date of Consultation: December 13, 2017. Attending Physician: Daysi Page, DO Reason for Consultation: Positive blood culture,? Contaminant History of Present Illness 87-year-old male with history of end-stage renal disease on dialysis, hospitalized earlier this month with fluid overload, admitted December 07 with several days of severe abdominal pain rated up to 10/10 in intensity associated with nausea and vomiting. He was found to have single positive blood culture for coagulase-negative Staph on admission. Follow-up blood cultures have been negative. Patient has received vancomycin. Patient states that he has significantly improved since hospitalization, abdominal pain now 2/10 in intensity. Has remained afebrile. Patient now eating and drinking and without diarrhea, nausea, or vomiting. Past Medical/Surgical History Medical Problems: (1) Abdominal pain Status: Acute (2) ARF (acute renal failure) Status: Acute (3) Aspiration pneumonia of right lower lobe Status: Acute (4) CHF (congestive heart failure) Status: Acute (5) Dehydration Status: Acute (6) Diverticulitis Status: Acute (7) ESRD (end stage renal disease) Status: Acute (8) Fluid overload Status: Acute (9) Hyperglycemia Status: Acute (10) Hyperkalemia Status: Acute (11) Hypermagnesemia Status: Acute (12) Hypotension Status: Acute (13) Lower GI bleed Status: Acute (14) Pancreatitis Status: Acute (15) Renal failure Status: Acute (16) Renal failure Status: Acute (17) SOB (shortness of breath) Status: Acute (18) Urinary retention Status: Acute (19) UTI (urinary tract infection) Status: Acute Medical Problems: (1) Atrial fibrillation (2) CAD (coronary artery disease) (3) Chronic hypoxemic respiratory failure (4) CKD (chronic kidney disease), stage IV (5) COPD (chronic obstructive pulmonary disease) (6) DM2 (diabetes mellitus, type 2) (7) ESRD on dialysis (8) HLD (hyperlipidemia) (9) HTN (hypertension) (10) Nausea & vomiting (11) Pulmonary nodules (12) Respiratory failure, [id number] (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, chronic Surgical Problems: (1) H/O hernia repair (2) s/p laser vaporization of prostate 11/01/11 (3) Transurethral prostatectomy Family History Heart disease Social History Smoking Status: Former Smoker Drug Use: none Marital Status: single Housing Status: lives with family Occupation Status: unemployed, retired Allergies Coded Allergies: Iodine (Verified Allergy, Severe, HIVES, 12/07/17) Heparin (Verified Allergy, Unknown, UNKNOWN, 12/07/17) OK TO GIVE DWELL Sulfa Antibiotics (Verified Allergy, Unknown, ENTERED SULFA- UNKNOWN, ) Current Inpatient Medications Current Inpatient Medications Medications (Trade) Dose Ordered Sig/Ronak Route Start Time Stop Time Status Last Admin Dose Admin Amiodarone HCl (Cordarone Tab) 200 mg DAILY PO 12/08/17 09:00 01/07/18 08:59 12/13/17 08:08 200 MG Apixaban (Eliquis Tab) 2.5 mg BID PO 12/08/17 09:00 01/07/18 08:59 12/13/17 08:10 2.5 MG Aspirin (Ecotrin Tab) 81 mg QAM PO 12/08/17 09:00 01/07/18 08:59 12/13/17 08:10 81 MG Calcium Acetate (Phoslo Cap) 667 mg TIDM PO 12/08/17 08:00 01/07/18 07:59 12/13/17 08:09 667 MG Digoxin (Lanoxin Tab) 0.125 mg MoWeFr@1600 PO 12/08/17 16:00 01/07/18 15:59 12/08/17 16:01 0.125 MG Docusate Sodium (coLACE CAP) 100 mg BID PO 12/08/17 09:00 01/07/18 08:59 12/13/17 08:09 100 MG Finasteride (Proscar Tab) 5 mg HS PO 12/08/17 21:00 01/07/18 20:59 12/12/17 21:25 5 MG Salmeterol Xinafoate/ Fluticasone (Advair Diskus 250/50 Inh) 1 puff BID INH 12/08/17 09:00 01/07/18 08:59 12/13/17 08:08 1 PUFF Furosemide (Lasix Tab) 80 mg BID17 PO 12/08/17 09:00 01/07/18 08:59 12/13/17 08:09 80 MG Gabapentin (Neurontin Cap) 300 mg HS PO 12/08/17 21:00 01/07/18 20:59 12/12/17 21:25 300 MG Metoprolol Succinate (Toprol Xl Tab) 25 mg BID PO 12/08/17 09:00 01/07/18 08:59 12/13/17 08:08 25 MG Midodrine (Proamatine Tab) 2.5 mg TID@0800,1200,1700 PO 12/08/17 08:00 01/07/18 07:59 12/13/17 08:09 2.5 MG Nitroglycerin (Nitrostat Tab) 0.4 mg UD PRN [place] 12/07/17 22:30 01/06/18 22:29 Simvastatin (Zocor Tab) 20 mg QPM PO 12/08/17 21:00 01/07/18 20:59 12/12/17 21:25 20 MG Tramadol HCl (Ultram Tab) 50 mg Q8 PRN PO 12/07/17 22:45 01/06/18 22:44 12/08/17 21:33 50 MG Insulin Aspart (novoLOG ASPART) SLIDING SCALE If C... ACHS SC 12/08/17 06:30 01/07/18 06:29 12/13/17 08:15 4 UNITS Glucose (Glucose 40% Gel) 15-30 GRAMS 15 GRAMS... UD PRN PO 12/08/17 00:30 01/07/18 00:29 Glucose (Glucose Chew Tab) 4-8 Tablets 4 Tabl... UD PRN PO 12/08/17 00:30 01/07/18 00:29 Dextrose (Dextrose 50% 50ML Syringe) 25-50ML 25ML FOR ... UD PRN IV 12/08/17 00:30 01/07/18 00:29 Glucagon (Glucagon Inj) 1 mg UD PRN SQ 12/08/17 00:30 01/07/18 00:29 Carbohydrates (Carbohydrates For Hypoglycemia) 15-30 GRAMS 15 grams if BSG 54-69... UD PRN PO 12/08/17 00:30 01/07/18 00:29 Miscellaneous Information (Consult) 1 ea UD PRN N/A 12/10/17 21:45 01/09/18 21:44 Miscellaneous Medication (Milk And Molasses Enema) 1 ea DAILY PRN [place] 12/12/17 15:00 01/11/18 14:59 Albuterol (Ventolin Hfa Inhaler) 2 puffs QID PRN INH 12/12/17 15:45 01/07/18 08:59 12/13/17 08:08 2 PUFFS Polyethylene (Miralax Powder Packet) 17 gm DAILY PRN PO 12/13/17 09:00 12/15/17 08:59 Review of Systems Constitutional: + fatigue, No fever Eyes: No problem reported ENT: No problem reported Respiratory: + shortness of breath Cardiovascular: No problem reported Abdomen: + pain, + nausea, + vomiting Musculoskeletal: No problem reported Genitourinary - Male: No problem reported Neurologic: No problem reported Psychiatric: No problem reported Endocrine: No problem reported Hematologic / Lymphatic: No problem reported Integumentary: No problem reported Allergic / Immunologic: No problem reported Physical Exam Date Time Temp Pulse Resp B/P (MAP) Pulse Ox O2 Delivery O2 Flow Rate FiO2 12/13/17 08:54 90 Nasal Cannula 2.0 12/13/17 07:17 36.8 66 18 102/50 (67) 90 Nasal Cannula 3.0 12/13/17 00:00 Nasal Cannula 2.0 12/12/17 23:24 37.0 82 20 118/57 (77) 90 2.0 12/12/17 21:17 69 93/50 (64) 12/12/17 17:05 52 114/61 (78) 12/12/17 16:00 96 Nasal Cannula 2.0 12/12/17 14:51 36.5 67 16 131/70 (90) 96 Nasal Cannula 2.0 12/12/17 13:01 36.8 55 18 98/47 (64) 100 Room Air 12/12/17 11:58 67 111/59 12/12/17 11:52 36.3 67 111/59 (76) 12/12/17 11:45 71 128/71 12/12/17 11:30 61 124/81 12/12/17 11:15 62 128/82 12/12/17 11:00 68 135/74 12/12/17 10:45 67 124/73 General Appearance: WD/WN, no apparent distress, + obese Head: normocephalic, atraumatic Eyes: normal inspection, EOMI, sclerae normal ENT: normal ENT inspection, hearing grossly normal, pharynx normal Neck: supple, no adenopathy, thyroid normal, trachea midline Respiratory/Chest: chest non-tender, lungs clear, normal breath sounds, no respiratory distress Cardiovascular: no gallop, no murmur, + irregularly irregular Abdomen/GI: normal bowel sounds, soft, no organomegaly, + tenderness (Lower quadrant) Back: normal inspection, no CVA tenderness Extremities/Musculoskelatal: no calf tenderness, non-tender Neurologic/Psych: alert, oriented x 3 Skin: normal color, no rash Lymphatic: no adenopathy Laboratory Results Last 24 Hours Test 12/12/17 12:35 12/12/17 16:11 12/12/17 20:23 12/13/17 05:51 Bedside Glucose 107 mg/dl 150 mg/dl 150 mg/dl Sodium Level 130 mmol/L Potassium Level 4.4 mmol/L Chloride Level 96 mmol/L Carbon Dioxide Level 27 mmol/L Anion Gap 7.0 mmol/L Blood Urea Nitrogen 34 mg/dl Creatinine 5.17 mg/dl Est Creatinine Clear Calc Drug Dose 14.5 ml/min Estimated GFR () 10.9 Estimated GFR (Non- 9.4 BUN/Creatinine Ratio 6.5 Random Glucose 127 mg/dl Calcium Level 7.9 mg/dl Phosphorus Level 3.3 mg/dl Magnesium Level 1.9 mg/dl Test 12/13/17 07:13 Bedside Glucose 115 mg/dl Assessment & Plan 87-year-old male with end-stage renal disease now admitted with nausea, vomiting , and abdominal pain with single positive blood culture for coagulase negative Staph. I suspect that this represents contaminant, and do not think further treatment at this point is necessary. No clear evidence of urinary tract infection at this time. Will follow.
[2017-12-13 14:41] VITALS: PULSE 91; O2SAT 94
[2017-12-13 15:03] VITALS: BP 143/73; PULSE 92; TEMP 36.8; O2SAT 94
[2017-12-13] MEDS: DIGOXIN 0.125 MG TAB PO SCH (16:25)
--- NOTE | 2017-12-13 17:00 | Progress Note ---
Internal Med Progress Note Date of Service: December 13, 2017. Provider Documentation: SUBJECTIVE: resting comfortably on the chair complains of the pain on his right dorsum part of hand where there is small scab says he moved his bowels says he is urinating fine now afebrile eating ok denies abdominal pain OBJECTIVE: Vital Signs-as noted below Exam: General-alert and oriented. Not in distress ENT-Normal hearing Neck-no neck masses Lungs-cta b/l no wheezing no crackles Heart-s1 and s2 heard regular rate and rhythm no murmurs Abdomen-soft bowel sounds present non tender, no distension Extremities-b/l lower extremity edema present chronic skin changes 2 x 2 cm scab seen on right hand dorsal aspect Neuro-alert and awake 'moves extremities Lab data as noted below. ASSESSMENT & PLAN: 87M with multiple medical problems presented with nausea/vomiting/abdominal pain ( from gastroenteritis vs UTI) and missed HD and was sob. Received HD and sob improved. Abdominal symptoms also improved and tolerating diet. But having constipation and urinary retention.Will consult urology for urinary retention. Receiving Rocephin for UTI. .Await PT/OT Abdominal pain/Nausea/Vomiting Possible gastroenteritis vs UTI CT abd/pelvis showed Extensive colonic diverticulosis without CT evidence of acute diverticulitis. No bowel obstruction or focal bowel wall thickening. Zofran prn pain control Abdominal arterial US poor study pain improved continue to monitor stable now- no complaints Dyspnea Acute systolic and diastolic chf Possible related to volume overload Missed HD on presentation CXR showed Cardiomegaly with unchanged mixed interstitial and alveolar opacities within a mid and lower lung zone predominant distribution suggesting mild pulmonary edema and/or pneumonitis. to continue Lasix 80mg BID s/p HD Continue oxygen supplement Continue inhalers stable currently UTI Elevated WBC Afebrile UA positive for nitrite/Leukocytes and blood received Rocephin cx no growth Bacteremia? one of the blood cx positive mostly contaminant was empirically started on iv vancomycin whic is stopped now repeat cx negative appreciate ID inputs ESRD on HD , , Sat Consulted nephrology HD as per nephrology CAD s/p stent on aspirin, statin and metoprolol Stable Hypotension BP stable On Midodrine Urinary retention on Proscar will monitor with bladder scan straight cath as needed consulted urology and appreciate inputs seems improved now f/u with urology on discharge Afib Rate control on amiodarone, digoxin, metoprolol On anticoagulant with Apixaban DM type 2 Recent hba1c 5.7 on 11/30/17 Well controlled insulin sliding scale will monitor Constipation stool softeners will monitor Chronic Anemia Hgb stable DVT px on Apixaban CODE STATUS FULL CODE DISPOSITION to be determined pt/ot social service for d/.c planning snf vs home with home health Vital Signs: Date Time Temp Pulse Resp B/P (MAP) Pulse Ox O2 Delivery O2 Flow Rate FiO2 12/13/17 16:25 72 12/13/17 15:03 36.8 92 20 143/73 (96) 94 2.0 12/13/17 14:41 91 94 12/13/17 08:54 90 Nasal Cannula 2.0 12/13/17 07:17 36.8 66 18 102/50 (67) 90 Nasal Cannula 3.0 12/13/17 00:00 Nasal Cannula 2.0 12/12/17 23:24 37.0 82 20 118/57 (77) 90 2.0 12/12/17 21:17 69 93/50 (64) 12/12/17 17:05 52 114/61 (78) Lab Results: Results Past 24 Hours Test 12/12/17 20:23 12/13/17 05:51 12/13/17 07:13 12/13/17 11:08 Range/Units Bedside Glucose 150 115 117 70-99 mg/dl Sodium Level 130 136-145 mmol/L Potassium Level 4.4 3.5-5.1 mmol/L Chloride Level 96 98-107 mmol/L Carbon Dioxide Level 27 21-32 mmol/L Anion Gap 7.0 3-11 mmol/L Blood Urea Nitrogen 34 7-18 mg/dl Creatinine 5.17 0.60-1.40 mg/dl Est Creatinine Clear Calc Drug Dose 14.5 ml/min Estimated GFR () 10.9 Estimated GFR (Non- 9.4 BUN/Creatinine Ratio 6.5 10-20 Random Glucose 127 70-99 mg/dl Calcium Level 7.9 8.5-10.1 mg/dl Phosphorus Level 3.3 2.5-4.9 mg/dl Magnesium Level 1.9 1.8-2.4 mg/dl Test 12/13/17 16:26 Range/Units Bedside Glucose 126 70-99 mg/dl
[2017-12-13] MEDS: TRAMADOL HCL 50 MG TAB PO PRN (21:21)
[2017-12-13] MEDS: GABAPENTIN 300 MG CAP PO SCH (21:22)
[2017-12-13] MEDS: FINASTERIDE 5 MG TAB PO SCH (21:22)
[2017-12-13] MEDS: SIMVASTATIN 20 MG TAB PO SCH (21:23)
[2017-12-13] MEDS ORDERED: DOXYCYCLINE IV 100 MG in DEXTROSE 5% 100ML 100 ML IV ONE (23:00)
[2017-12-13] MEDS ORDERED: TRAMADOL HCL 50 MG TAB PO PRN (23:00)
[2017-12-13] MEDS ORDERED: HYDROmorphone INJ 0.5 MG/0.5 ML SYR IV PRN (23:00)
[2017-12-13 23:44] VITALS: BP 120/50; PULSE 56; TEMP 36.7; O2SAT 90
[2017-12-14] VITALS (19 sets, daily range): BP systolic 89–135; BP diastolic 41–61; PULSE 53–95; TEMP 36.3–37; O2SAT 90–100
--- NOTE | 2017-12-14 01:46 | Progress Note ---
Internal Med Progress Note Date of Service: December 14, 2017. Provider Documentation: Made aware by RN of swelling noted on patient's right forearm from patient's uncontrollable scab picking. No fever, no chills. No wound drainage as per RN. AP Cellulitis, RUE Doxycycline trial Local measures for cellulitis Will relay to AM provider. Vital Signs: Date Time Temp Pulse Resp B/P (MAP) Pulse Ox O2 Delivery O2 Flow Rate FiO2 12/14/17 06:57 37.0 56 18 123/54 (77) 90 3.0 12/14/17 00:00 Nasal Cannula 2.0 12/13/17 23:44 36.7 56 18 120/50 (73) 90 3.0 12/13/17 16:25 72 12/13/17 16:00 Nasal Cannula 2.0 12/13/17 15:03 36.8 92 20 143/73 (96) 94 2.0 12/13/17 14:41 91 94 Lab Results: Results Past 24 Hours Test 12/13/17 11:08 12/13/17 16:26 12/13/17 20:21 12/14/17 06:36 Range/Units Bedside Glucose 117 126 163 70-99 mg/dl Random Vancomycin Level 12.2 mcg/ml Test 12/14/17 07:20 Range/Units Bedside Glucose 107 70-99 mg/dl
--- NOTE | 2017-12-14 07:45 | DIAGNOSTIC IMAGING REPORT ---
R HAND MIN 3 VIEWS ROUTINE CLINICAL HISTORY: 87 years-old Male presenting with R hand swelling. TECHNIQUE: Frontal, oblique, and lateral views of the right hand were obtained. COMPARISON: None. FINDINGS: Soft tissue swelling noted most prominently along the dorsum of the hand. No radiographic evidence of soft tissue emphysema. No osseous erosion or periosteal reaction. Osteopenia may be present. Joint space loss, osteophytosis, and possible central erosion noted at the distal interphalangeal joint of the second finger. No acute fracture or malalignment. Evaluation of the fingers on lateral view is limited due to overlapping structures. IMPRESSION: 1. No acute osseous injury. 2. Extensive soft tissue swelling, nonspecific. Correlate clinically for cellulitis. 3. No radiographic evidence of osteomyelitis. Electronically signed by: Marcello Cullen M.D. 12/14/2017 7:44 AM Dictated Date/Time: 12/14/2017 6:55 AM
[2017-12-14] MEDS: FLUTICASONE/SALMETEROL 250/50 (ADVAIR) 14 PUFF/1 INHALER INH SCH (07:47)
[2017-12-14] MEDS: CALCIUM ACETATE 667MG GELCAP PO SCH ×2 (07:49→14:00)
[2017-12-14] MEDS: MIDODRINE 2.5 MG TAB PO SCH ×2 (07:49→14:06)
[2017-12-14] MEDS: INSULIN ASPART 100 UNITS/ML 3 ML PEN SC SCH ×2 (07:52→14:04)
[2017-12-14] MEDS ORDERED: EPOETIN ALFA 10,000 UNITS/ML VIAL IV. SCH (08:30)
--- NOTE | 2017-12-14 08:53 | Progress Note ---
Subjective Date of Service: December 14, 2017. Subjective Pt evaluation today including: conversation w/ patient, chart review, lab review Voiding: requires PRN straight cath 87 yo male with UR. Pt required straight cath last evening for 325ml. Has not voided since. States he cannot void if we continue to empty his bladder with the catheter. Pt upset and concerned about his right hand which was ? infected from IV at last hospitalization per the pt. He states "you did this to me." Problem List Medical Problems: (1) Abdominal pain Status: Acute (2) ARF (acute renal failure) Status: Acute (3) Aspiration pneumonia of right lower lobe Status: Acute (4) CHF (congestive heart failure) Status: Acute (5) Dehydration Status: Acute (6) Diverticulitis Status: Acute (7) ESRD (end stage renal disease) Status: Acute (8) Fluid overload Status: Acute (9) Hyperglycemia Status: Acute (10) Hyperkalemia Status: Acute (11) Hypermagnesemia Status: Acute (12) Hypotension Status: Acute (13) Lower GI bleed Status: Acute (14) Pancreatitis Status: Acute (15) Renal failure Status: Acute (16) Renal failure Status: Acute (17) SOB (shortness of breath) Status: Acute (18) Urinary retention Status: Acute (19) UTI (urinary tract infection) Status: Acute Review of Systems Constitutional: No fever, No chills Respiratory: No shortness of breath Cardiac: No chest pain Abdomen: No pain, No nausea, No vomiting Male : + problem reported (urinary retention ), No dysuria, No hematuria Heme: No abnormal bleeding/bruising Objective Vital Signs Date Time Temp Pulse Resp B/P (MAP) Pulse Ox O2 Delivery O2 Flow Rate FiO2 12/14/17 06:57 37.0 56 18 123/54 (77) 90 3.0 12/14/17 00:00 Nasal Cannula 2.0 12/13/17 23:44 36.7 56 18 120/50 (73) 90 3.0 12/13/17 16:25 72 12/13/17 16:00 Nasal Cannula 2.0 12/13/17 15:03 36.8 92 20 143/73 (96) 94 2.0 12/13/17 14:41 91 94 12/13/17 08:54 90 Nasal Cannula 2.0 Physical Exam General Appearance: no apparent distress Eyes: normal inspection ENT: hearing grossly normal Neck: no JVD Respiratory/Chest: no respiratory distress, no accessory muscle use Cardiovascular: no JVD Extremities: + swelling Neurologic/Psychiatric: alert, normal mood/affect, oriented x 3 Skin: normal color Laboratory Results Last 24 Hours Test 12/13/17 11:08 12/13/17 16:26 12/13/17 20:21 12/14/17 06:36 Bedside Glucose 117 mg/dl 126 mg/dl 163 mg/dl Random Vancomycin Level 12.2 mcg/ml Test 12/14/17 07:20 Bedside Glucose 107 mg/dl Assessment and Plan A/P: Urinary retention Continue finasteride. Resume Flomax if hypotension resolves. Continue to check PVRs every shift. Straight cath for PVR greater than 300 mLs. Pt may need to start CIC once daily. He has done this in the past as an outpatient. Will continue to follow along with primary service. Will arrange for outpatient follow-up with Dr. López in 2 weeks.
[2017-12-14] MEDS ORDERED: DOXYCYCLINE HYCLATE 100 MG CAP PO SCH (09:00)
[2017-12-14] MEDS: FUROSEMIDE 80 MG TAB PO SCH (13:59)
[2017-12-14] MEDS: ASPIRIN 81 MG ECTAB PO SCH (14:00)
[2017-12-14] MEDS: APIXABAN 2.5 MG TAB PO SCH (14:00)
[2017-12-14] MEDS: AMIODARONE 200 MG TAB PO SCH (14:00)
[2017-12-14] MEDS: DOCUSATE SODIUM 100 MG CAP PO SCH (14:00)
[2017-12-14] MEDS: METOPROLOL SUCC 25MG EXT REL TAB PO SCH (14:00)
[2017-12-14] MEDS ORDERED: NSPO EXT (14:31)
[2017-12-14] MEDS ORDERED: DXY100 PO (14:31)
--- NOTE | 2017-12-14 14:37 | Discharge Instructions ---
Discharge Instructions Date of Service December 14, 2017. Admission Reason for Admission: Abdominal Pain, Nausea, Vomiting Discharge Discharge Diagnosis / Problem: gastroeneritis, urinary retention, constipation Discharge Goals Goal(s): Decrease discomfort, Improve function Activity Recommendations Activity Limitations: resume your previous activity . Instructions / Follow-Up Instructions / Follow-Up FOLLOWUP WITH FAMILY DOCTOR Kam Brannon ON November AT 1:05PM. FOLLOWUP WITH UROLOGY DR. López in 2 weeks.( [address] [place] [address] , [place] [address] ). TO STRAIGHT CATH IF URINARY RETENTION UNTIL SEEN BY UROLOGY. HOLDING LANTUS FOR NOW. PLEASE CHECK BLOOD SUGARS AT LEAST THREE TIMES DAILY BEFORE BREAKFAST, LUNCH , DINNER OR BEFORE GOING TO SLEEP AND NOTE THE READINGS ON LOG BOOK AND SHOW READINGS TO FAMILY DOCTOR. BASED ON READINGS FAMILY DOCTOR TO DECIDE ABOUT RESTARTING LANTUS AT APPROPRIATE DOSE. Call your Primary Care doctor if any of the following symptoms or problems start or get worse: * Shortness of breath or difficulty breathing * Wake up at night short of breath * Chest pain * Cough * Swelling of your hands, feet, or legs * More fatigued or tired with your normal activity * Palpitations - sudden fast heart beats WEIGHT * Weigh yourself every morning after using the bathroom. * Use the same scale. * Wear the same amount of clothing. * Write your weight down on a chart. * Call your Primary Care doctor if you gain more than 2-3 pounds in 1-2 days. MEDICATIONS * Use this discharge instruction sheet for medication instructions. * Take your medications at the time your doctor ordered. * Do not skip a dose of your medicines. * If you miss a dose of medicine, take it as soon as possible, but DO NOT DOUBLE A DOSE. * Read your medicine information when you get home. * Know all of the side effects of your medicine. If in doubt, ask your pharmacist * Call your Primary Care doctor's office if you have any side effects. * Be sure all of your doctors know what medicine and herbs you take (including cold, flu, and herbal medicine). Take the following with you to your follow-up doctor appointments: * Weight Chart * Medication List * List of questions Do not drink excessive alcohol, beer or wine. Current Hospital Diet Patient's current hospital diet: Renal Diet, Diabetes Type 2 Diet Discharge Diet Recommended Diet: Diabetes Type 2 Diet, Renal Diet Pending Studies Studies pending at discharge: no Laboratory Results Hemoglobin A1c Test 11/30/17 19:00 Range/Units Estimated Average Glucose 117 mg/dl Hemoglobin A1c 5.7 H 4.5-5.6 % Medical Emergencies . Who to Call and When: Call 911 or go to the Emergency Room if: * If at any time you feel your situation is an emergency * You have tightness or pain in your chest that does not go away with rest or Nitroglycerin * You are very short of breath even with rest . Non-Emergent Contact Non-Emergency issues call your: Primary Care Provider . . "Provider Documentation" section prepared by Siddhartha Mendoza. .
--- NOTE | 2017-12-14 15:08 | Nephrology Progress Note ---
Nephrology Progress Note Date of Service: December 14, 2017. Subjective 87 yo male with esrd who presented with abdominal pain and n/v. Today patient is enjoying lunch. states that appetite is improved. also with improved BM's and Urine output. tolerated dialysis well today. eager to be sent home. Objective Date Time Temp Pulse Resp B/P (MAP) Pulse Ox O2 Delivery O2 Flow Rate FiO2 12/14/17 14:31 36.3 95 20 135/57 (83) 100 12/14/17 12:59 36.5 55 107/61 (76) 12/14/17 12:15 58 106/48 12/14/17 12:00 63 111/52 12/14/17 11:45 59 114/55 12/14/17 11:30 56 115/53 12/14/17 11:15 56 103/53 12/14/17 11:00 59 89/52 12/14/17 10:45 57 101/52 12/14/17 10:30 61 108/53 12/14/17 10:15 63 106/50 12/14/17 10:00 56 111/41 12/14/17 09:45 57 111/52 12/14/17 09:30 55 90/53 12/14/17 09:23 54 108/52 12/14/17 09:16 36.5 53 101/52 (68) 12/14/17 08:59 90 Nasal Cannula 2.0 12/14/17 06:57 37.0 56 18 123/54 (77) 90 3.0 12/14/17 00:00 Nasal Cannula 2.0 12/13/17 23:44 36.7 56 18 120/50 (73) 90 3.0 12/13/17 16:25 72 12/13/17 16:00 Nasal Cannula 2.0 12/13/17 15:03 36.8 92 20 143/73 (96) 94 2.0 Physical Exam: General-aaox3 Eyes-no scleral icterus ENT-mmm Neck-supple Lungs-cta Heart-rate controlled Abdomen-bs+/soft/nt/nd Extremities-B/L upper extremity edema. wound on right hand. Neuro-nonfocal Current Inpatient Medications Medications (Trade) Dose Ordered Sig/Ronak Route Start Time Stop Time Status Last Admin Dose Admin Amiodarone HCl (Cordarone Tab) 200 mg DAILY PO 12/08/17 09:00 01/07/18 08:59 12/14/17 14:00 200 MG Apixaban (Eliquis Tab) 2.5 mg BID PO 12/08/17 09:00 01/07/18 08:59 12/14/17 14:00 2.5 MG Aspirin (Ecotrin Tab) 81 mg QAM PO 12/08/17 09:00 01/07/18 08:59 12/14/17 14:00 81 MG Calcium Acetate (Phoslo Cap) 667 mg TIDM PO 12/08/17 08:00 01/07/18 07:59 12/14/17 14:00 667 MG Digoxin (Lanoxin Tab) 0.125 mg MoWeFr@1600 PO 12/08/17 16:00 01/07/18 15:59 12/13/17 16:25 0.125 MG Docusate Sodium (coLACE CAP) 100 mg BID PO 12/08/17 09:00 01/07/18 08:59 12/14/17 14:00 100 MG Finasteride (Proscar Tab) 5 mg HS PO 12/08/17 21:00 01/07/18 20:59 12/13/17 21:22 5 MG Salmeterol Xinafoate/ Fluticasone (Advair Diskus 250/50 Inh) 1 puff BID INH 12/08/17 09:00 01/07/18 08:59 12/14/17 07:47 1 PUFF Furosemide (Lasix Tab) 80 mg BID17 PO 12/08/17 09:00 01/07/18 08:59 12/14/17 13:59 80 MG Gabapentin (Neurontin Cap) 300 mg HS PO 12/08/17 21:00 01/07/18 20:59 12/13/17 21:22 300 MG Metoprolol Succinate (Toprol Xl Tab) 25 mg BID PO 12/08/17 09:00 01/07/18 08:59 12/14/17 14:00 25 MG Midodrine (Proamatine Tab) 2.5 mg TID@0800,1200,1700 PO 12/08/17 08:00 01/07/18 07:59 12/14/17 14:06 2.5 MG Nitroglycerin (Nitrostat Tab) 0.4 mg UD PRN UT 12/07/17 22:30 01/06/18 22:29 Simvastatin (Zocor Tab) 20 mg QPM PO 12/08/17 21:00 01/07/18 20:59 12/13/17 21:23 20 MG Insulin Aspart (novoLOG ASPART) SLIDING SCALE If C... ACHS SC 12/08/17 06:30 01/07/18 06:29 12/14/17 14:04 3 UNITS Glucose (Glucose 40% Gel) 15-30 GRAMS 15 GRAMS... UD PRN PO 12/08/17 00:30 01/07/18 00:29 Glucose (Glucose Chew Tab) 4-8 Tablets 4 Tabl... UD PRN PO 12/08/17 00:30 01/07/18 00:29 Dextrose (Dextrose 50% 50ML Syringe) 25-50ML 25ML FOR ... UD PRN IV 12/08/17 00:30 01/07/18 00:29 Glucagon (Glucagon Inj) 1 mg UD PRN SQ 12/08/17 00:30 01/07/18 00:29 Carbohydrates (Carbohydrates For Hypoglycemia) 15-30 GRAMS 15 grams if BSG 54-69... UD PRN PO 12/08/17 00:30 01/07/18 00:29 Miscellaneous Medication (Milk And Molasses Enema) 1 ea DAILY PRN [place] 12/12/17 15:00 01/11/18 14:59 Albuterol (Ventolin Hfa Inhaler) 2 puffs QID PRN INH 12/12/17 15:45 01/07/18 08:59 12/13/17 08:08 2 PUFFS Polyethylene (Miralax Powder Packet) 17 gm DAILY PRN PO 12/13/17 09:00 12/15/17 08:59 Doxycycline Hyclate (Vibramycin Cap) 100 mg BID PO 12/14/17 09:00 12/24/17 08:59 12/14/17 14:01 100 MG Tramadol HCl (Ultram Tab) @ Q8 PRN PO 12/13/17 23:00 01/06/18 22:44 Hydromorphone HCl (Dilaudid Inj) 0.5 mg Q3H PRN IV 12/13/17 23:00 12/27/17 22:59 Epoetin Alexis (Procrit Inj) 10,000 units TODAY@0830 IV. 12/14/17 08:30 12/14/17 18:00 12/14/17 10:50 10,000 UNITS Neomycin/ Polymyxin/ Bacitracin (Neosporin Oint) 1 appln BID EXT 12/14/17 21:00 01/13/18 20:59 Last 24 Hours Test 12/13/17 16:26 12/13/17 20:21 12/14/17 06:36 12/14/17 07:20 Bedside Glucose 126 mg/dl 163 mg/dl 107 mg/dl Random Vancomycin Level 12.2 mcg/ml Test 12/14/17 11:30 12/14/17 13:58 Bedside Glucose 111 mg/dl 110 mg/dl Assessment & Plan ESRD-continue dialysis outpt schedule of or as clinical condition dictates. tolerated small amount of fluid today at dialysis. potassium 4.4. volume status ok. Anemia-hg levels are stable at 10.6. will continue MASOUD at dialysis as needed. goal hg of 10 to 11. This patient was seen and treated with direct collaboration with Dr. Fraser. Thank you for the opportunity to participate in this patient's care. Appreciate the Consult. ATTENDING NOTE: I performed a history and physical examination of the patient, including specifically on history- pt eating better. tolerated dialysis well, on physical exam-decreased breath sounds at bases, no edema, and my impression and plan are ESRD-continue t/h/s schedule while in house. ok from renal perspective to go home once medically cleared. I have discussed the patient's management with Debbi Milan PA-C, Please refer to above note for the documented findings and plan of care. Kerrie Fraser DO
--- NOTE | 2017-12-14 15:43 | Progress Note ---
Internal Med Progress Note Date of Service: December 14, 2017. Provider Documentation: SUBJECTIVE: eating lunch s/p dialysis today afebrile says eating fine no nausea moved his bowels urinating ok no sob ok for discharge OBJECTIVE: Vital Signs-as noted below Exam: General-alert and oriented. Not in distress ENT-Normal hearing Neck-no neck masses Lungs-cta b/l no wheezing no crackles Heart-s1 and s2 heard regular rate and rhythm no murmurs Abdomen-soft bowel sounds present non tender, no distension Extremities-b/l lower extremity edema present chronic skin changes 2 x 2 cm scab seen on right hand dorsal aspect swelling of dorsal aspect of hand seen Neuro-alert and awake 'moves extremities Lab data as noted below. ASSESSMENT & PLAN: 87M with multiple medical problems presented with nausea/vomiting/abdominal pain ( from gastroenteritis vs UTI) and missed HD and was sob. Received HD and sob improved. Abdominal symptoms also improved and tolerating diet. But having constipation and urinary retention.Consulted urology for urinary retention. Received Rocephin for UTI. refused placement. plan for home with home health Abdominal pain/Nausea/Vomiting Possible gastroenteritis vs UTI CT abd/pelvis showed Extensive colonic diverticulosis without CT evidence of acute diverticulitis. No bowel obstruction or focal bowel wall thickening. Zofran prn pain control Abdominal arterial US poor study pain improved continue to monitor stable now- no complaints eating fine Dyspnea Acute systolic and diastolic chf Possible related to volume overload Missed HD on presentation CXR showed Cardiomegaly with unchanged mixed interstitial and alveolar opacities within a mid and lower lung zone predominant distribution suggesting mild pulmonary edema and/or pneumonitis. to continue Lasix 80mg BID s/p HD Continue oxygen supplement Continue inhalers stable currently UTI Elevated WBC Afebrile UA positive for nitrite/Leukocytes and blood received Rocephin cx no growth Bacteremia? one of the blood cx positive mostly contaminant was empirically started on iv vancomycin which is stopped now repeat cx negative appreciate ID inputs ESRD on HD , , Sat Consulted nephrology HD as per nephrology CAD s/p stent on aspirin, statin and metoprolol Stable Hypotension BP stable On Midodrine Urinary retention on Proscar will monitor with bladder scan straight cath as needed consulted urology and appreciate inputs seems improved now straight cath as needed f/u with urology on discharge in 2 weeks Afib Rate control on amiodarone, digoxin, metoprolol On anticoagulant with Apixaban DM type 2 Recent hba1c 5.7 on 11/30/17 Well controlled insulin sliding scale will monitor Constipation stool softeners will monitor Chronic Anemia Hgb stable right hand wound? scab seen . patient pricking it. mostly from iv site/blood draws. applied dressing po doxycycline triple abx cream. elevate the hand DVT px on Apixaban Discharged to home with home health Vital Signs: Date Time Temp Pulse Resp B/P (MAP) Pulse Ox O2 Delivery O2 Flow Rate FiO2 12/14/17 15:34 36.3 95 20 100 Nasal Cannula 12/14/17 14:31 36.3 95 20 135/57 (83) 100 12/14/17 12:59 36.5 55 107/61 (76) 12/14/17 12:15 58 106/48 12/14/17 12:00 63 111/52 12/14/17 11:45 59 114/55 12/14/17 11:30 56 115/53 12/14/17 11:15 56 103/53 12/14/17 11:00 59 89/52 12/14/17 10:45 57 101/52 12/14/17 10:30 61 108/53 12/14/17 10:15 63 106/50 12/14/17 10:00 56 111/41 12/14/17 09:45 57 111/52 12/14/17 09:30 55 90/53 12/14/17 09:23 54 108/52 12/14/17 09:16 36.5 53 101/52 (68) 12/14/17 08:59 90 Nasal Cannula 2.0 12/14/17 06:57 37.0 56 18 123/54 (77) 90 3.0 12/14/17 00:00 Nasal Cannula 2.0 12/13/17 23:44 36.7 56 18 120/50 (73) 90 3.0 12/13/17 16:25 72 12/13/17 16:00 Nasal Cannula 2.0 Lab Results: Results Past 24 Hours Test 12/13/17 16:26 12/13/17 20:21 12/14/17 06:36 12/14/17 07:20 Range/Units Bedside Glucose 126 163 107 70-99 mg/dl Random Vancomycin Level 12.2 mcg/ml Test 12/14/17 11:30 12/14/17 13:58 Range/Units Bedside Glucose 111 110 70-99 mg/dl
--- NOTE | 2017-12-14 18:01 | Discharge Summary ---
Discharge Summary Date of Service December 14, 2017. Discharge Summary Admission Date: December 07, 2017 at 20:53 Discharge Date: December 14, 2017 Discharge Disposition: Home with services Principal Diagnosis: n/v abdominal pain-mostly gastroenteritis urinary retention constipation Secondary Diagnoses/Problems: Medical Problems: (1) ARF (acute renal failure) (2) Aspiration pneumonia of right lower lobe (3) Atrial fibrillation (4) CAD (coronary artery disease) (5) CHF (congestive heart failure) (6) Chronic hypoxemic respiratory failure (7) CKD (chronic kidney disease), stage IV (8) COPD (chronic obstructive pulmonary disease) (9) Dehydration (10) Diverticulitis (11) DM2 (diabetes mellitus, type 2) (12) ESRD (end stage renal disease) (13) ESRD on dialysis (14) HLD (hyperlipidemia) (15) HTN (hypertension) (16) Hyperglycemia (17) Hyperkalemia (18) Hypermagnesemia (19) Hypotension (20) Lower GI bleed (21) Nausea & vomiting (22) Pancreatitis (23) Pulmonary nodules (24) Renal failure (25) Renal failure (26) Respiratory failure, [id number] (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 Cardiomegaly with unchanged mixed interstitial and alveolar opacities within a mid and lower lung zone predominant distribution suggesting mild pulmonary edema and/or pneumonitis. 2. Trace left pleural effusion. 3. Stable positioning of right internal jugular dual-lumen hemodialysis catheter. CT ABD/PELVIS: 1. Extensive colonic diverticulosis without CT evidence of acute diverticulitis. 2. No bowel obstruction or focal bowel wall thickening. Normal appendix. 3. Mild prostamegaly with evidence of chronic bladder outlet obstruction. 4. Cholelithiasis and mild gallbladder distention without CT evidence of acute cholecystitis. 5. Bilateral nephrolithiasis without hydronephrosis. 6. Prior granulomatous disease. 7. Bibasilar solid pulmonary nodules measure up to 7 mm. 8. Additional findings as above including cardiomegaly and splenomegaly. DUPLEX MESENTERIC: Limited study as above with nonvisualization of the celiac and superior mesenteric arteries. RT HAND XRAY: 1. No acute osseous injury. 2. Extensive soft tissue swelling, nonspecific. Correlate clinically for cellulitis. 3. No radiographic evidence of osteomyelitis. Consultations: Nephro-Dr. Kerim Oncu Medication Reconciliation New Medications: *Neomycin/Polymyx/Bacitr (Triple Antibiotic) 45 Appln/15 Gm Oin 1 APPLN EXT BID for 7 Days, #1 1 Refill Doxycycline Hyclate (Doxycycline Hyclate) 100 Mg Cap 100 MG PO BID for 6 Days, #12 CAP Continued Medications: Albuterol Hfa (Ventolin Hfa) 200 Puffs/03806 Mcg Aers 2 PUFFS INH QID, INHALER Amiodarone Hcl (Cordarone) 200 Mg Tab 200 MG PO DAILY, TAB Apixaban (Eliquis) 2.5 Mg Tab 2.5 MG PO BID, TAB Aspirin (Aspirin Ec) 81 Mg Tab 81 MG PO QAM Calcium Acetate (Phoslo 667 Mg) 667 Mg Cap 1 CAP PO TIDM, CAP Digoxin (Digoxin) 0.125 Mg Tab 1 TAB PO MWF 1600 Docusate Sodium (Docusate Sodium) 100 Mg Cap 100 MG PO BID, CAP Finasteride (Proscar) 5 Mg Tab 5 MG PO HS Fluticasone Prop/Salmeterol (Advair Diskus 250/50 60 Dose) 1 Ea Aerp 1 PUFF INH BID Furosemide (Furosemide) 40 Mg Tab 80 MG PO BID Gabapentin (Neurontin) 300 Mg Cap 300 MG PO HS Home O2 Therapy (Oxygen) Gas 2 LITERS NA DIRECTED, BTL Insulin Aspart (Novolog Flexpen) 100 Units/Ml Inj 4 UNITS SQ AC Licorice (Licorice Root) 1 Pow Pow 450 MG PO DAILY Metoprolol Succ (Toprol Xl) (Toprol-Xl) 25 Mg Tabcr 25 MG PO BID, TAB Midodrine (Midodrine HCl) 2.5 Mg Tab 2.5 MG PO TID Nitroglycerin (Nitrostat) 0.4 Mg Tab 0.4 MG UT UD PRN for Chest Pain Polyethylene Glycol 3350 (Miralax) 1 Pow Pow 17 GM PO DAILY PRN for Constipation Simvastatin (Simvastatin) 20 Mg Tab 20 MG PO QPM Tramadol (Ultram) 50 Mg Tab 50 MG PO Q8H PRN for Pain, TAB Discontinued Medications: Insulin Glargine (Lantus) 100 Unit/Ml Inj 48 UNITS SC BID, VIAL Oxycodone Ir (Roxicodone Ir) 5 Mg Tab 5 MG PO Q4H PRN for Severe Pain, TAB Admission Information HPI (per Admitting provider): 87 years old male with past medical history of end-stage renal disease on hemodialysis, A. fib, CHF, was recently admitted on [facility] on November 30 and discharged on December 04 for volume overload present to the ER for nausea and vomiting associated with abdominal pain. Patient said for about 2 days he has been having recurrent nausea and vomiting with abdominal pain. Patient described the pain as achy located across the abdomen nonradiating and grade 10 out of 10 in severity. He said that he has not been eating much since then because he was unable to keep anything in his stomach. He misses dialysis today because he was not feeling himself. He said that he continues to have shortness of breath that that is worsening with exertion. Also complaining of dysuria. His last bowel movement was yesterday and he said he was brownish color. Denies any chest pain, palpitation, dizziness, fever, and diarrhea. Physical Exam (per Admitting): General Appearance: WD/WN, no apparent distress Head: normocephalic, atraumatic Eyes: PERRL, EOMI ENT: hearing grossly normal Neck: supple, trachea midline Respiratory/Chest: no respiratory distress, no accessory muscle use, + decreased breath sounds Cardiovascular: regular rate, rhythm, no murmur Abdomen/GI: normal bowel sounds, + tenderness Back: no CVA tenderness Extremities/Musculoskelatal: no calf tenderness, + swelling Neurologic/Psych: alert, oriented x 3 Skin: warm/dry, no rash Hospital Course 87M with multiple medical problems presented with nausea/vomiting/abdominal pain ( from gastroenteritis vs UTI) and missed HD and was sob. Received HD and sob improved. Abdominal symptoms also improved and tolerating diet. But having constipation and urinary retention.Consulted urology for urinary retention. Received Rocephin for UTI. refused placement. plan for home with home health Abdominal pain/Nausea/Vomiting Possible gastroenteritis vs UTI CT abd/pelvis showed Extensive colonic diverticulosis without CT evidence of acute diverticulitis. No bowel obstruction or focal bowel wall thickening. Zofran prn pain control Abdominal arterial US poor study pain improved continue to monitor stable now- no complaints eating fine Dyspnea Acute systolic and diastolic chf Possible related to volume overload Missed HD on presentation CXR showed Cardiomegaly with unchanged mixed interstitial and alveolar opacities within a mid and lower lung zone predominant distribution suggesting mild pulmonary edema and/or pneumonitis. to continue Lasix 80mg BID s/p HD Continue oxygen supplement Continue inhalers stable currently UTI Elevated WBC Afebrile UA positive for nitrite/Leukocytes and blood received Rocephin cx no growth Bacteremia? one of the blood cx positive mostly contaminant was empirically started on iv vancomycin which is stopped now repeat cx negative appreciate ID inputs LUNG NODULES Bibasilar solid pulmonary nodules measure up to 7 mm. F/U WITH REPEAT CT SCAN ESRD on HD , , Mon Consulted nephrology HD as per nephrology CAD s/p stent on aspirin, statin and metoprolol Stable Hypotension BP stable On Midodrine Urinary retention on Proscar will monitor with bladder scan straight cath as needed consulted urology and appreciate inputs seems improved now straight cath as needed f/u with urology on discharge in 2 weeks Afib Rate control on amiodarone, digoxin, metoprolol On anticoagulant with Apixaban DM type 2 Recent hba1c 5.7 on 11/30/17 Well controlled insulin sliding scale will monitor Constipation stool softeners will monitor Chronic Anemia Hgb stable right hand wound? scab seen . patient pricking it. mostly from iv site/blood draws. applied dressing po doxycycline triple abx cream. elevate the hand DVT px on Apixaban Discharged to home with home health Total time spent on discharge = 35MINUTES This includes examination of the patient, discharge planning, medication reconciliation, and communication with other providers. Discharge Instructions Discharge Instructions Date of Service December 14, 2017. Admission Reason for Admission: Abdominal Pain, Nausea, Vomiting Discharge Discharge Diagnosis / Problem: gastroeneritis, urinary retention, constipation Discharge Goals Goal(s): Decrease discomfort, Improve function Activity Recommendations Activity Limitations: resume your previous activity . Instructions / Follow-Up Instructions / Follow-Up FOLLOWUP WITH FAMILY DOCTOR Kam Brannon ON November AT 1:05PM. FOLLOWUP LUNG NODULES WITH REPEAT CT SCAN WITH PCP FOLLOWUP WITH UROLOGY DR. López in [address] weeks.( [address] [place] [address] , [place] [address] ). TO STRAIGHT CATH IF URINARY RETENTION UNTIL SEEN BY UROLOGY. HOLDING LANTUS FOR NOW. PLEASE CHECK BLOOD SUGARS AT LEAST THREE TIMES DAILY BEFORE BREAKFAST, LUNCH , DINNER OR BEFORE GOING TO SLEEP AND NOTE THE READINGS ON LOG BOOK AND SHOW READINGS TO FAMILY DOCTOR. BASED ON READINGS FAMILY DOCTOR TO DECIDE ABOUT RESTARTING LANTUS AT APPROPRIATE DOSE. Call your Primary Care doctor if any of the following symptoms or problems start or get worse: * Shortness of breath or difficulty breathing * Wake up at night short of breath * Chest pain * Cough * Swelling of your hands, feet, or legs * More fatigued or tired with your normal activity * Palpitations - sudden fast heart beats WEIGHT * Weigh yourself every morning after using the bathroom. * Use the same scale. * Wear the same amount of clothing. * Write your weight down on a chart. * Call your Primary Care doctor if you gain more than 2-3 pounds in 1-2 days. MEDICATIONS * Use this discharge instruction sheet for medication instructions. * Take your medications at the time your doctor ordered. * Do not skip a dose of your medicines. * If you miss a dose of medicine, take it as soon as possible, but DO NOT DOUBLE A DOSE. * Read your medicine information when you get home. * Know all of the side effects of your medicine. If in doubt, ask your pharmacist * Call your Primary Care doctor's office if you have any side effects. * Be sure all of your doctors know what medicine and herbs you take (including cold, flu, and herbal medicine). Take the following with you to your follow-up doctor appointments: * Weight Chart * Medication List * List of questions Do not drink excessive alcohol, beer or wine. Current Hospital Diet Patient's current hospital diet: Renal Diet, Diabetes Type 2 Diet Discharge Diet Recommended Diet: Diabetes Type 2 Diet, Renal Diet Pending Studies Studies pending at discharge: no Laboratory Results Hemoglobin A1c Test 11/30/17 19:00 Range/Units Estimated Average Glucose 117 mg/dl Hemoglobin A1c 5.7 H 4.5-5.6 % Medical Emergencies . Who to Call and When: Call 911 or go to the Emergency Room if: * If at any time you feel your situation is an emergency * You have tightness or pain in your chest that does not go away with rest or Nitroglycerin * You are very short of breath even with rest . Non-Emergent Contact Non-Emergency issues call your: Primary Care Provider . .
[2017-12-14] MEDS ORDERED: NEOMYCIN/POLYMYX/BACITR OINT 15 GM TUBE EXT SCH (21:00)
== END 2017-12-14 16:45 | disposition home health service (06) | DRG 391 ==
LOC: C.EDB 15:57 → C.MS2W 20:53 → ENRESERV 21:13 → C.MS2W 12-09 10:00
PROVIDERS: ADMIT Internal Medicine; ATTEND Internal Medicine
DX: K52.9 Noninfective gastroenteritis and colitis, unspecified (principal); I50.43 Acute on chronic combined systolic (congestive) and diastolic (congestive) heart failure; J96.21 Acute and chronic respiratory failure with hypoxia; N18.6 End stage renal disease; N39.0 Urinary tract infection, site not specified; I48.91 Unspecified atrial fibrillation; I25.10 Atherosclerotic heart disease of native coronary artery without angina pectoris; J44.9 Chronic obstructive pulmonary disease, unspecified; E11.21 Type 2 diabetes mellitus with diabetic nephropathy; E78.5 Hyperlipidemia, unspecified; Z87.891 Personal history of nicotine dependence; Z88.8 Allergy status to other drugs, medicaments and biological substances; Z88.2 Allergy status to sulfonamides; Z79.4 Long term (current) use of insulin; Z95.818 Presence of other cardiac implants and grafts; I25.5 Ischemic cardiomyopathy; D64.9 Anemia, unspecified; R33.9 Retention of urine, unspecified; K59.00 Constipation, unspecified; R91.8 Other nonspecific abnormal finding of lung field; I95.9 Hypotension, unspecified; N40.1 Benign prostatic hyperplasia with lower urinary tract symptoms; Z99.2 Dependence on renal dialysis